=== PATIENT | female | born 1950 | race Caucasian/White ===

== ENCOUNTER 2023-01-04 15:04 | Outpatient (OUT) | payer MEDICARE, SELFPAY ==
[2023-01-04 15:37] LABS: Basophils Absolute Auto 0.1 10^3/uL (0.0-0.1); Basophils Percent Auto 1.5 % (0.2-2.0); Eosinophils Absolute Auto 0.2 10^3/uL (0.0-0.7); Eosinophils Percent Auto 2.2 % (0.9-7.0); Hematocrit 38.5 % (36.0-48.0); Hemoglobin 10.9 g/dL (12.0-16.0); Immature Granulocytes Abs Auto 0.02 10^3/uL (0.00-0.03); Immature Granulocytes Pct Auto 0.3 % (0.0-0.5); Lymphocytes Percent Auto 15.1 % (20.5-60.0); Mean Corpuscular HGB Conc 28.3 g/dL (29.9-35.2); Mean Corpuscular Hemoglobin 27.6 pg (26.7-34.0); Mean Corpuscular Volume 97.5 fL (81.0-99.0); Mean Platelet Volume 10.9 fL (9.5-13.5); Monocytes Absolute Auto 0.5 10^3/uL (0.3-0.8); Monocytes Percent Auto 7.6 % (1.7-12.0); Neutrophils Absolute Auto 4.9 10^3/uL (1.4-6.5); Neutrophils Percent Auto 73.3 % (43.0-75.0); Platelet Count 196 10^3/uL (150-450); Red Blood Count 3.95 10^6/uL (4.20-5.40); Red Cell Distribution Width 19.1 % (11.0-15.0); White Blood Count 6.7 10^3/uL (4.0-11.0)
[2023-01-04 16:21] LABS: Alanine Aminotransferase 20 U/L (14-59); Albumin Globulin Ratio 0.9; Albumin Level 3.4 g/dL (3.4-5.0); Alkaline Phosphatase 101 U/L (46-116); Anion Gap 14.9; Aspartate Amino Transferase 15 U/L (15-37); BUN Creatinine Ratio 15.1; Bilirubin Total 0.5 mg/dL (0.2-1.0); Calcium 8.9 mg/dL (8.5-10.1); Chloride 105 mmol/L (98-107); Estimated GFR (African America >60 (>=60); Estimated GFR (Non-African Ame 51 (>=60); Globulin 3.7 g/dL; Glucose 107 mg/dL (74-106); Potassium 3.9 mmol/L (3.5-5.1); Sodium 140 mmol/L (136-145); Total Protein 7.1 g/dL (6.4-8.2)
== END 2023-01-04 15:05 ==
LOC: LAB 15:11
PROVIDERS: PCP Internal Medicine
DX: D50.9 Iron deficiency anemia, unspecified (principal)
CPT/HCPCS: 36415; 80053; 82728; 83540; 83550; 85025

== ENCOUNTER 2023-02-18 13:00 | Outpatient (OUT) | payer MEDICARE, SELFPAY ==
--- NOTE | 2023-02-18 13:12 | MM_ITS ---
Patient: JANINE CONDE Exam Date: 02/18/2023 : 1950 Gender:F Ordering : DR Shalom Hayward D.O. Admission #: [id number] Family : Order #: [id number] CLICK HERE TO VIEW EXAM RADIOLOGY REPORT PROCEDURE: MM TOMOSYNTHESIS SCREENING BI COMPARISON: MG MAMM SCREEN 3D MANJINDER CAD, 02/16/2022. INDICATIONS: Screening Calculator Name NCI Breast Cancer Risk Assessment Tool 5 Year Breast Cancer Risk Not Reported. Lifetime Breast Cancer Risk Not Reported. Personal Breast Cancer No Personal Ovarian Cancer No Treatments None Family Cancers None LOCATION: [facility] BREAST COMPOSITION: Scattered areas fibroglandular density. FINDINGS: DIAGNOSTIC CATEGORY 2--BENIGN FINDING. NO CHANGE FROM COMPARISON. Scattered benign-appearing calcifications are present. Scattered benign-appearing nodules are present. RIGHT BREAST: No significant suspicious finding. LEFT BREAST: No significant suspicious finding. RECOMMENDATIONS: ROUTINE MAMMOGRAM AND CLINICAL EVALUATION IN 12 MONTHS. PLEASE NOTE: A NORMAL MAMMOGRAM DOES NOT EXCLUDE THE POSSIBILITY OF BREAST CANCER. A CLINICALLY SUSPICIOUS PALPABLE LUMP SHOULD BE BIOPSIED. Dictated by: Ajith Mann MD on 02/19/2023 at 09:14 Approved by: Ajith Mann MD on 02/19/2023 at 09:17
== END 2023-02-18 13:01 | disposition home or self-care (01) ==
LOC: MAMMO 13:00
PROVIDERS: PCP Internal Medicine; Visit Provider Internal Medicine
DX: Z12.31 Encounter for screening mammogram for malignant neoplasm of breast (principal)
CPT/HCPCS: 77063; 77067

== ENCOUNTER 2023-03-05 14:10 | Outpatient (OUT) | payer MEDICARE, SELFPAY ==
[2023-03-05 14:55] LABS: Basophils Absolute Auto 0.1 10^3/uL (0.0-0.1); Eosinophils Absolute Auto 0.1 10^3/uL (0.0-0.7); Eosinophils Percent Auto 1.3 % (0.9-7.0); Hematocrit 35.6 % (36.0-48.0); Hemoglobin 10.3 g/dL (12.0-16.0); Immature Granulocytes Abs Auto 0.02 10^3/uL (0.00-0.03); Immature Granulocytes Pct Auto 0.3 % (0.0-0.5); Lymphocytes Absolute Auto 0.9 10^3/uL (1.2-3.8); Lymphocytes Percent Auto 13.9 % (20.5-60.0); Mean Corpuscular HGB Conc 28.9 g/dL (29.9-35.2); Mean Corpuscular Hemoglobin 26.2 pg (26.7-34.0); Mean Corpuscular Volume 90.6 fL (81.0-99.0); Mean Platelet Volume 11.5 fL (9.5-13.5); Monocytes Absolute Auto 0.5 10^3/uL (0.3-0.8); Monocytes Percent Auto 7.2 % (1.7-12.0); Neutrophils Absolute Auto 4.8 10^3/uL (1.4-6.5); Neutrophils Percent Auto 76.3 % (43.0-75.0); Platelet Count 301 10^3/uL (150-450); Red Blood Count 3.93 10^6/uL (4.20-5.40); Red Cell Distribution Width 16.2 % (11.0-15.0); White Blood Count 6.3 10^3/uL (4.0-11.0)
[2023-03-05 15:45] LABS: Percent Iron Saturation 6.9 %
[2023-03-05 15:49] LABS: Alanine Aminotransferase 21 U/L (14-59); Albumin Level 3.6 g/dL (3.4-5.0); Alkaline Phosphatase 77 U/L (46-116); Anion Gap 12.9; Aspartate Amino Transferase 15 U/L (15-37); BUN Creatinine Ratio 14.1; Bilirubin Total 0.4 mg/dL (0.2-1.0); Calcium 8.6 mg/dL (8.5-10.1); Carbon Dioxide 24.8 mmol/L (21.0-32.0); Chloride 106 mmol/L (98-107); Estimated GFR (African America >60 (>=60); Estimated GFR (Non-African Ame >60 (>=60); Globulin 3.5 g/dL; Glucose 88 mg/dL (74-106); Potassium 3.7 mmol/L (3.5-5.1); Sodium 140 mmol/L (136-145); Total Protein 7.1 g/dL (6.4-8.2)
== END 2023-03-05 14:11 | disposition home or self-care (01) ==
LOC: LAB 14:14
PROVIDERS: PCP Internal Medicine
DX: D50.9 Iron deficiency anemia, unspecified (principal)
CPT/HCPCS: 36415; 80053; 82728; 83540; 83550; 85025

== ENCOUNTER 2023-04-24 14:32 | Outpatient (OUT) | payer MEDICARE, SELFPAY ==
[2023-04-24 14:57] LABS: Basophils Absolute Auto 0.1 10^3/uL (0.0-0.1); Basophils Percent Auto 1.6 % (0.2-2.0); Eosinophils Absolute Auto 0.1 10^3/uL (0.0-0.7); Eosinophils Percent Auto 1.6 % (0.9-7.0); Hematocrit 30.2 % (36.0-48.0); Hemoglobin 8.4 g/dL (12.0-16.0); Immature Granulocytes Abs Auto 0.01 10^3/uL (0.00-0.03); Immature Granulocytes Pct Auto 0.2 % (0.0-0.5); Lymphocytes Absolute Auto 0.8 10^3/uL (1.2-3.8); Mean Corpuscular Hemoglobin 27.1 pg (26.7-34.0); Mean Corpuscular Volume 97.4 fL (81.0-99.0); Mean Platelet Volume 10.1 fL (9.5-13.5); Monocytes Absolute Auto 0.4 10^3/uL (0.3-0.8); Neutrophils Absolute Auto 4.5 10^3/uL (1.4-6.5); Neutrophils Percent Auto 76.6 % (43.0-75.0); Platelet Count 354 10^3/uL (150-450); White Blood Count 5.8 10^3/uL (4.0-11.0)
[2023-04-24 15:18] LABS: Mean Corpuscular HGB Conc 27.8 g/dL (29.9-35.2); Red Cell Distribution Width 19.1 % (11.0-15.0)
[2023-04-24 15:22] LABS: Alanine Aminotransferase 19 U/L (14-59); Albumin Level 3.4 g/dL (3.4-5.0); Alkaline Phosphatase 83 U/L (46-116); Anion Gap 13.3; Aspartate Amino Transferase 14 U/L (15-37); BUN Creatinine Ratio 14.7; Bilirubin Total 0.5 mg/dL (0.2-1.0); Calcium 8.9 mg/dL (8.5-10.1); Carbon Dioxide 23.9 mmol/L (21.0-32.0); Chloride 108 mmol/L (98-107); Estimated GFR (African America >60 (>=60); Estimated GFR (Non-African Ame 58 (>=60); Globulin 3.5 g/dL; Glucose 98 mg/dL (74-106); Potassium 4.2 mmol/L (3.5-5.1); Sodium 141 mmol/L (136-145); Total Protein 6.9 g/dL (6.4-8.2)
[2023-04-24 15:24] LABS: Percent Iron Saturation 6.3 %
== END 2023-04-24 14:33 | disposition home or self-care (01) ==
LOC: LAB 14:35
PROVIDERS: PCP Internal Medicine
DX: D50.9 Iron deficiency anemia, unspecified (principal)
CPT/HCPCS: 36415; 80053; 82728; 83540; 83550; 85025

== ENCOUNTER 2023-06-11 14:11 | Outpatient (OUT) | payer MEDICARE, SELFPAY ==
[2023-06-11 14:49] LABS: Basophils Absolute Auto 0.1 10^3/uL (0.0-0.1); Basophils Percent Auto 1.2 % (0.2-2.0); Eosinophils Absolute Auto 0.1 10^3/uL (0.0-0.7); Eosinophils Percent Auto 1.6 % (0.9-7.0); Hematocrit 39.7 % (36.0-48.0); Hemoglobin 12.1 g/dL (12.0-16.0); Immature Granulocytes Abs Auto 0.02 10^3/uL (0.00-0.03); Immature Granulocytes Pct Auto 0.3 % (0.0-0.5); Lymphocytes Absolute Auto 0.9 10^3/uL (1.2-3.8); Lymphocytes Percent Auto 13.5 % (20.5-60.0); Mean Corpuscular HGB Conc 30.5 g/dL (29.9-35.2); Mean Corpuscular Hemoglobin 29.6 pg (26.7-34.0); Mean Corpuscular Volume 97.1 fL (81.0-99.0); Monocytes Absolute Auto 0.4 10^3/uL (0.3-0.8); Monocytes Percent Auto 6.2 % (1.7-12.0); Neutrophils Absolute Auto 5.3 10^3/uL (1.4-6.5); Neutrophils Percent Auto 77.2 % (43.0-75.0); Platelet Count 275 10^3/uL (150-450); Red Blood Count 4.09 10^6/uL (4.20-5.40); Red Cell Distribution Width 17.8 % (11.0-15.0); White Blood Count 6.9 10^3/uL (4.0-11.0)
[2023-06-11 15:32] LABS: Percent Iron Saturation 13.9 %
[2023-06-11 15:33] LABS: Alanine Aminotransferase 29 U/L (14-59); Albumin Level 3.5 g/dL (3.4-5.0); Alkaline Phosphatase 126 U/L (46-116); Anion Gap 12.3; Aspartate Amino Transferase 19 U/L (15-37); BUN Creatinine Ratio 13.2; Bilirubin Total 0.7 mg/dL (0.2-1.0); Calcium 8.7 mg/dL (8.5-10.1); Carbon Dioxide 25.2 mmol/L (21.0-32.0); Chloride 104 mmol/L (98-107); Estimated GFR (African America >60 (>=60); Estimated GFR (Non-African Ame >60 (>=60); Globulin 3.6 g/dL; Glucose 119 mg/dL (74-106); Potassium 3.5 mmol/L (3.5-5.1); Sodium 138 mmol/L (136-145); Total Protein 7.1 g/dL (6.4-8.2)
== END 2023-06-11 14:12 | disposition home or self-care (01) ==
LOC: LAB 14:14
PROVIDERS: PCP Internal Medicine
DX: D64.9 Anemia, unspecified (principal)
CPT/HCPCS: 36415; 80053; 82728; 83540; 83550; 85025

== ENCOUNTER 2023-08-06 14:50 | Outpatient (OUT) | payer MEDICARE, SELFPAY ==
[2023-08-06 15:25] LABS: Basophils Absolute Auto 0.1 10^3/uL (0.0-0.1); Basophils Percent Auto 0.9 % (0.2-2.0); Eosinophils Absolute Auto 0.1 10^3/uL (0.0-0.7); Eosinophils Percent Auto 0.7 % (0.9-7.0); Hematocrit 42.4 % (36.0-48.0); Immature Granulocytes Abs Auto 0.02 10^3/uL (0.00-0.03); Immature Granulocytes Pct Auto 0.3 % (0.0-0.5); Lymphocytes Absolute Auto 0.8 10^3/uL (1.2-3.8); Lymphocytes Percent Auto 11.5 % (20.5-60.0); Mean Corpuscular HGB Conc 30.7 g/dL (29.9-35.2); Mean Corpuscular Hemoglobin 31.6 pg (26.7-34.0); Mean Corpuscular Volume 102.9 fL (81.0-99.0); Mean Platelet Volume 10.7 fL (9.5-13.5); Monocytes Absolute Auto 0.4 10^3/uL (0.3-0.8); Monocytes Percent Auto 6.1 % (1.7-12.0); Neutrophils Absolute Auto 5.5 10^3/uL (1.4-6.5); Neutrophils Percent Auto 80.5 % (43.0-75.0); Platelet Count 255 10^3/uL (150-450); Red Blood Count 4.12 10^6/uL (4.20-5.40); Red Cell Distribution Width 17.2 % (11.0-15.0); White Blood Count 6.8 10^3/uL (4.0-11.0)
[2023-08-06 16:57] LABS: Alanine Aminotransferase 27 U/L (14-59); Albumin Globulin Ratio 0.9; Albumin Level 3.2 g/dL (3.4-5.0); Alkaline Phosphatase 136 U/L (46-116); Anion Gap 13.2; Aspartate Amino Transferase 19 U/L (15-37); BUN Creatinine Ratio 15.9; Bilirubin Total 0.9 mg/dL (0.2-1.0); Calcium 9.1 mg/dL (8.5-10.1); Carbon Dioxide 26.7 mmol/L (21.0-32.0); Chloride 105 mmol/L (98-107); Estimated GFR (African America >60 (>=60); Estimated GFR (Non-African Ame >60 (>=60); Globulin 3.7 g/dL; Glucose 112 mg/dL (74-106); Potassium 3.9 mmol/L (3.5-5.1); Sodium 141 mmol/L (136-145); Total Protein 6.9 g/dL (6.4-8.2)
[2023-08-06 18:17] LABS: Percent Iron Saturation 32.9 %
== END 2023-08-06 14:51 | disposition home or self-care (01) ==
LOC: LAB 14:52
PROVIDERS: PCP Internal Medicine
DX: D64.9 Anemia, unspecified (principal)
CPT/HCPCS: 36415; 80053; 82728; 83540; 83550; 85025

== ENCOUNTER 2023-10-21 05:31 | Inpatient (IN) | payer MEDICARE, SELFPAY ==
[2023-10-21] VITALS (66 sets, daily range): BP systolic 118–152; BP diastolic 57–100; PULSE 72–122; RESP 13–24; TEMP 36.6–36.9; O2SAT 92–100; BMI 39.5
--- NOTE | 2023-10-21 05:54 | ECG_ITS ---
The [facility] Test Date: 2023-10-21 Pat Name: JANINE CONDE Department: Room: - Gender: Female Admissions Assistant: : 1950 Requested By: Rod Turner Order Number: [id number] Reading MD: MIKE JONES Measurements Intervals [place] Rate: 114 P: 175 [place]: 234 QRS: -1 QRSD: 72 T: -4 QT: 328 QTc: 396 Interpretive Statements Sinus tachycardia w/ first degree AV block [address] depression 5211 Minimal voltage criteria for LVH, may be normal variant 8102 Low QRS voltage in chest leads 9150 abnormal ECG Electronically Signed On 10-21-2023 22:20:07 EDT by MIKE JONES
--- NOTE | 2023-10-21 05:56 | CT_ITS ---
The [address] [address] Patient Name: JANINE CONDE MRN: [id number] date: 1950 Sex: F Assigned Patient Location: ER Current Patient Location: Accession/Order Number: [id number] Exam Date: 10/21/2023 07:11 Report Date: 10/21/2023 07:43 At the request of: ROHIT QUINTERO Procedure: CT abdomen pelvis w con EXAMINATION: CT abdomen pelvis w con HISTORY: hematemesis COMPARISON: CT abdomen and pelvis 09/30/2022 TECHNIQUE: Axial, Coronal, and Sagittal images were obtained without and/or with IV contrast as indicated by examination type. Dose reduction techniques were achieved by using automated exposure control and/or adjustment of mA and/or kV according to patient size and/or use of iterative reconstruction technique. FINDINGS: LUNG BASES: No visible pulmonary or pleural disease. LIVER: No enlargement, atrophy, suspicious density, or significant focal lesion. BILIARY: Cholecystectomy. PANCREAS: No lesion, fluid collection, or abnormal duct dilatation. SPLEEN: No enlargement or focal lesion. ADRENALS: No mass or enlargement. KIDNEYS: No mass, obstruction, or calcification. BOWEL/MESENTERY: Large hiatal hernia with approximately half of the stomach above the diaphragm. No visible mass, obstruction, or bowel wall thickening. AORTA/VASCULAR: No aneurysm or dissection. RETROPERITONEUM: No mass or adenopathy. LYMPH NODES: No adenopathy. URINARY BLADDER: No visible focal wall thickening, lesion, or calculus. PELVIC ORGANS: Hysterectomy. ABDOMINAL WALL: No mass or hernia. BONES: Stable sclerotic focus within posterior left iliac wing, nonspecific but suggestive of benign bone islands. OTHER: Negative. CT/CT abdomen pelvis w con IMPRESSION: 1. Large hiatal hernia with at least half of the stomach above the diaphragm and filled with fluid. This extends above level of imaging on today's study. 2. No bowel obstruction or additional acute/suspicious findings to account for patient's symptoms. Electronically authenticated by: MARGOT RAMIREZ Date: 10/21/2023 07:43
--- NOTE | 2023-10-21 06:01 | ED.GENADUL1 ---
HPI - General Adult General Chief complaint: Nausea/Vomiting/Diarrhea Stated complaint: vomiting nausea Time Seen by Provider: 10/21/23 05:33 Source: patient and family Mode of arrival: walk-in Limitations: no limitations History of Present Illness HPI narrative: Patient began vomiting up coffee ground emesis around 2am. She said that she had dark stools for about 2 weeks and previously had GI bleed . She denied any abdominal pain. No recent trauma to the abdomen. No recent fever,chills, illness. She has iron deficiency anemia, gets regular iron infusions and has previously received blood transfusions. She saw Dr Elias a couple of months ago, she told me, and had both upper and lower endoscopy. They apparently could not find the source of the bleeding although ulcer was suspected and bleeding noted, the told me. Related Data Home Medications Medication Instructions Recorded Confirmed buspirone 15 mg tablet mg 10/21/23 cholestyramine-aspartame 4 gram ea 10/21/23 oral powder for susp in a packet (Cholestyramine Light) clonazepam 0.5 mg tablet mg 10/21/23 clonidine HCl 0.1 mg tablet 0.1 mg PO .once a day 10/21/23 10/21/23 dicyclomine 10 mg capsule 10 mg PO .once a day 10/21/23 10/21/23 trazodone 100 mg tablet mg 10/21/23 venlafaxine 150 mg mg PO 10/21/23 capsule,extended release 24 hr Allergies Allergy/AdvReac Type Severity Reaction Status Date / Time No Known Drug Allergies Allergy Verified 10/21/23 05:41 Exam Narrative Exam Narrative: Nurses notes and vital signs reviewed and patient is not hypoxic. Afebrile General: Well-appearing and in no apparent distress. Skin: Warm, dry, generalized pallor noted. Head: Normocephalic, atraumatic. Eye: Pupils are equal, round and EOMI. No scleral icterus. Ears, Nose, Mouth, and Throat: Oral mucosa is dry Cardiovascular: Tachycardia. Respiratory: No accessory muscle use or respiratory distress. Lungs are clear to auscultation, no wheezing, rales or rhonchi Musculoskeletal: normal ROM, no calf or popliteal tenderness, no lower extremity edema/swelling GI: Abdomen is soft, non-distended. Normal bowel sounds. No masses appreciated. No tenderness to palpation. No rebound, guarding, or rigidity noted. Neurological: A&O x4. No cranial nerve dysfunction observed. No truncal ataxia. Moves all extremities. Sensation intact. Psychiatric: Cooperative and interactive. Normal mood and affect. Constitutional Vital Signs, click to edit/add: Last Vital Signs Temp 97.9 F 10/21/23 05:37 Pulse 113 H 10/21/23 06:33 Resp 14 10/21/23 06:33 BP 141/71 10/21/23 06:33 Pulse Ox 95 10/21/23 06:33 O2 Del Method Room Air 10/21/23 05:37 Course Vital Signs Vital signs: Vital Signs Temperature 97.9 F 10/21/23 05:37 Pulse Rate 117 H 10/21/23 05:37 Respiratory Rate 22 10/21/23 05:37 Blood Pressure 148/100 H 10/21/23 05:37 Pulse Oximetry 98 10/21/23 05:37 Oxygen Delivery Method Room Air 10/21/23 05:37 Temperature 97.9 F 10/21/23 05:37 Pulse Rate 113 H 10/21/23 06:33 Respiratory Rate 14 10/21/23 06:33 Blood Pressure 141/71 10/21/23 06:33 Pulse Oximetry 95 10/21/23 06:33 Oxygen Delivery Method Room Air 10/21/23 05:37 Medical Decision Making MDM Narrative Medical decision making narrative: Patient was placed on playground monitor and EKG obtained. Blood drawn and sent for evaluation, including lactate, procalcitonin and blood cultures per sepsis protocol as well as type and screen in the event that the patient would need a blood transfusion. I did discuss with her the risks and benefits of receiving blood in the event that she would need that. She expressed understanding verbally and gave verbal consent. If she does need blood transfusion then we will obtain written consent as well. She was given normal saline IV fluid, IV Zofran, IV Protonix. White blood cell count is normal at 7.9. Hemoglobin is slightly decreased at 9.8. Platelet count is normal at 328 and coags are normal. Based on the CT scan result, the patient may still need blood transfusion despite hemoglobin greater than 9 if she is actively bleeding. CMP fairly unremarkable. Normal electrolytes and renal function, minimally elevated glucose at 124, negative AST negative ALT and alk phos just slightly elevated at 118. Calcium at 8.1. Lactate elevated at 6.7. Procalcitonin was negative. I suspect this lactate elevation is due to acute GI bleed and possible gut ischemia, rather than sepsis. She received normal saline IV fluid. We will see what the CT scan reveals. Patient signed out to Dr. Key at 7 AM shift change. He will follow-up with the patient's CT scan and determine if any additional treatment necessary as well as final disposition. Medical Records Medical records reviewed: Yes I reviewed the patient's medical records Medical records narrative: She had blood drawn on August 06, 2023. At that time she had normal white blood cell count although left shift was noted. Hemoglobin was normal at 13. Platelet count normal at 255. BMP was also unremarkable with normal electrolytes, normal renal function. Iron studies indicated decreased total iron binding content and increased ferritin. Is not clear whether or not this patient has hemochromatosis. Lab Data Lab results reviewed: Yes I reviewed the patient's lab results Labs: Lab Results 10/21/23 Range/Units 05:47 WBC 7.9 (4.0-11.0) 10^3/uL RBC 3.52 L (4.20-5.40) 10^6/uL Hgb 9.8 L (12.0-16.0) g/dL Hct 34.3 L (36.0-48.0) % MCV 97.4 (81.0-99.0) fL MCH 27.8 (26.7-34.0) pg MCHC 28.6 L (29.9-35.2) g/dL RDW 14.2 (11.0-15.0) % Plt Count 328 (150-450) 10^3/uL MPV 10.5 (9.5-13.5) fL Neut % (Auto) 68.4 (43.0-75.0) % Lymph % (Auto) 22.1 (20.5-60.0) % [place] % (Auto) 6.3 (1.7-12.0) % Eos % (Auto) 1.5 (0.9-7.0) % Baso % (Auto) 1.4 (0.2-2.0) % Neut # (Auto) 5.4 (1.4-6.5) 10^3/uL Lymph # (Auto) 1.8 (1.2-3.8) 10^3/uL [place] # (Auto) 0.5 (0.3-0.8) 10^3/uL Eos # (Auto) 0.1 (0.0-0.7) 10^3/uL Baso # (Auto) 0.1 (0.0-0.1) 10^3/uL Abs Immat Gran (auto) 0.02 (0.00-0.03) 10^3/uL Imm/Tot Granulo (auto) 0.3 (0.0-0.5) % PT 10.0 (9.0-11.6) sec INR 0.94 APTT 23.8 (22.3-36.2) sec Sodium 143 (136-145) mmol/L Potassium 4.0 (3.5-5.1) mmol/L Chloride 106 (98-107) mmol/L Carbon Dioxide 19.0 L (21.0-32.0) mmol/L Anion Gap 22.0 BUN 28.0 H (7.0-18.0) mg/dL Creatinine 0.91 (0.55-1.02) mg/dL Est GFR ( Amer) >60 (>=60) Est GFR (Non-Af Amer) >60 (>=60) BUN/Creatinine Ratio 30.8 Glucose 124 H (74-106) mg/dL Lactate 6.7 H* (0.4-2.0) mmol/L Calcium 8.1 L (8.5-10.1) mg/dL Total Bilirubin 0.4 (0.2-1.0) mg/dL AST 14 L (15-37) U/L ALT 18 (14-59) U/L Alkaline Phosphatase 118 H (46-116) U/L Troponin I High Sens <4.0 L (4.0-51.3) pg/mL NT-Pro-B Natriuret Pep 153.0 (<=900.0) pg/mL Total Protein 6.6 (6.4-8.2) g/dL Albumin 3.0 L (3.4-5.0) g/dL Globulin 3.6 g/dL Albumin/Globulin Ratio 0.8 Procalcitonin <0.05 (0.00-0.50) ng/mL ECG Data Attestation: I personally reviewed and interpreted this ECG as follows: Interpretation: EKG interpretation: Emergency Department physician interpretation. Sinus tachycardia at 114bpm. First-degree AV block. LVH. Nonspecific ST and T wave changes with some T wave inversion and subtle ST depression. No ST segment elevation or depression. Discharge Plan Discharge Chief Complaint: Nausea/Vomiting/Diarrhea Clinical Impression: Acute upper GI bleed Patient Disposition: Still a Patient Prescriptions / Home Meds: No Action clonazepam 0.5 mg tablet venlafaxine 150 mg capsule,extended release 24hr PO trazodone 100 mg tablet buspirone 15 mg tablet cholestyramine-aspartame [Cholestyramine Light] 4 gram powder in packet clonidine HCl 0.1 mg tablet 0.1 mg PO .once a day dicyclomine 10 mg capsule 10 mg PO .once a day Referrals: Shalom Hayward DO [Primary Care Provider] - 1 week
[2023-10-21] MEDS: 0.9 % SODIUM CHLORIDE 1,000 ML 999 ML IV (06:14)
[2023-10-21 06:20] LABS: Basophils Absolute Auto 0.1 10^3/uL (0.0-0.1); Basophils Percent Auto 1.4 % (0.2-2.0); Eosinophils Absolute Auto 0.1 10^3/uL (0.0-0.7); Eosinophils Percent Auto 1.5 % (0.9-7.0); Hematocrit 34.3 % (36.0-48.0); Hemoglobin 9.8 g/dL (12.0-16.0); Immature Granulocytes Abs Auto 0.02 10^3/uL (0.00-0.03); Immature Granulocytes Pct Auto 0.3 % (0.0-0.5); Lymphocytes Absolute Auto 1.8 10^3/uL (1.2-3.8); Lymphocytes Percent Auto 22.1 % (20.5-60.0); Mean Corpuscular HGB Conc 28.6 g/dL (29.9-35.2); Mean Corpuscular Hemoglobin 27.8 pg (26.7-34.0); Mean Corpuscular Volume 97.4 fL (81.0-99.0); Mean Platelet Volume 10.5 fL (9.5-13.5); Monocytes Absolute Auto 0.5 10^3/uL (0.3-0.8); Monocytes Percent Auto 6.3 % (1.7-12.0); Neutrophils Absolute Auto 5.4 10^3/uL (1.4-6.5); Neutrophils Percent Auto 68.4 % (43.0-75.0); Platelet Count 328 10^3/uL (150-450); Red Blood Count 3.52 10^6/uL (4.20-5.40); Red Cell Distribution Width 14.2 % (11.0-15.0); White Blood Count 7.9 10^3/uL (4.0-11.0)
[2023-10-21] MEDS: PANTOPRAZOLE SODIUM 40 MG VIAL IV ×3 (06:29→21:20)
[2023-10-21] MEDS: ONDANSETRON PF 4 MG/2 ML VIAL IV ×2 (06:29→22:51)
--- OUTSIDE RECORDS SUMMARY | 2023-10-21 06:30 | XMS_ITS | CCD ---
Author Name Unknown Address [address] [place] [address] Organization [facility] Care Team Providers Care Day Habilitation Specialist Name Role Phone Dr. Taina Toussaint Attending Unavailable DO Shalom Hayward Primary Care Provider MD Ricky Benson Referring Provider MD Taina Toussaint Attending Provider Shalom Hayward Unavailable TING, DR TAINA Thomas Consulting Unavailable MAINOR, DR MCKEON Primary Care Unavailable TING, DR TAINA Thomas Admitting Unavailable TING, DR TAINA Thomas Attending Unavailable BALL, DR MCKEON Primary Care Unavailable TING, DR TAINA Thomas Admitting Unavailable TING, DR TAINA Thomas Attending Unavailable MISC, DR MAURICIO Consulting Unavailable GERTRUDIS LOUIS Attending Unavailable GERTRUDIS LOUIS Consulting Unavailable GERTRUDIS LOUIS Admitting Unavailable BALL, DR MCKEON Primary Care Unavailable TING, DR TAINA Thomas Consulting Unavailable TING, DR TAINA Thomas Admitting Unavailable TING, DR TAINA Thomas Attending Unavailable MAINOR, DR MCKEON Primary Care Unavailable GERTRUDIS LOUIS Attending Unavailable BALL, DR MCKEON Referring Unavailable BALL, DR MCKEON Primary Care Unavailable GERTRUDIS LOUIS Admitting Unavailable BALL, DR MCKEON Primary Care Unavailable BALL, DR MCKEON Admitting Unavailable BALL, DR MCKEON Attending Unavailable BALL, DR MCKEON Consulting Unavailable MAINOR, DR MCKEON Primary Care Unavailable TING, DR TAINA Thomas Consulting Unavailable TING, DR TAINA Thomas Admitting Unavailable TING, DR TAINA Thomas Attending Unavailable BALL, DR MCKEON Admitting Unavailable BALL, DR MCKEON Attending Unavailable BALL, DR MCKEON Consulting Unavailable BALL, DR MCKEON Primary Care Unavailable BALL, DR MCKEON Admitting Unavailable BALL, DR MCKEON Attending Unavailable BALL, DR MCKEON Consulting Unavailable BALL, DR MCKEON Primary Care Unavailable ZIEBMARLO, DR SEVERINO Ely Consulting Unavailable MISC, DR MAURICIO Attending Unavailable BALL, DR MCKEON Primary Care Unavailable MISC, DR MAURICIO Consulting Unavailable MISC, DR MAURICIO Admitting Unavailable PLACIDO ., DR MIMS Attending Unavailable PLACIDO ., DR MIMS Consulting Unavailable PLACIDO ., DR MIMS Admitting Unavailable BALL, DR MCKEON Primary Care Unavailable KATHERINE FIERRO Consulting Unavailable PATTI, DANISH Consulting Unavailable HERNANDEZ, ROBIN Consulting Unavailable SARAI LUCAS Consulting Unavailable DO Shalom Hayward Primary Care Provider MD Ricky Benson Referring Provider MD Taina Toussaint Attending Provider DO Shalom Hayward Primary Care Provider MD Ricky Benson Referring Provider MD Taina Toussaint Attending Provider Ricky Benson Unavailable DO Shalom Hayward Primary Care Provider MD Ricky Benson Referring Provider MD Taina Toussaint Attending Provider MD Ricky Benson Attending Provider DO Shalom Hayward Primary Care Provider MD Ricky Benson Attending Provider MD Ricky Benson Referring Provider MD Taina Toussaint Attending Provider Shalom Hayward Primary Care Unavailable Ricky Benson Admitting UnavailRicky Hernandez Attending Unavailkamran e Shalom Hayward Primary Care Unavailable Taina Tosusaint Admitting Unavailable Taina Toussaint Attending Unavailable Ricky Benson Referring UnavailDO Shalom Baig Primary Care Provider MD Ricky Benson Referring Provider MD Taina Toussaint Attending Provider Medications Current Medications Medication Drug Class(es) Dates Sig (Normalized) Sig (Original) busPIRone hydrochloride 5 mg oral tablet (20 sources) Start: 06-22-2021 take 5 mg by mouth twice daily Buspirone Active 5 MG PO Twice daily June 22, 2021 12:00am Start: 06-20-2019 End: 10-24-2021 take 15 mg by mouth twice daily Buspirone Discontinued 15 MG PO Twice daily June 20, 2019 12:00am October 24, 2021 12:21pm clonazePAM 0.5 mg oral tablet (20 sources) Benzodiazepine Start: 06-20-2019 End: 06-23-2019 take 0.5 mg by mouth twice daily Clonazepam Active 0.5 MG PO Twice daily 0 June 23, 2019 12:52pm cloNIDine hydrochloride 0.1 mg oral tablet (13 sources) Central alpha-2 Adrenergic Agonist Start: 05-07-2023 take 1 tablet by mouth every twenty-four hours cloNIDine HCl 0.1 MG 1 tablet Orally Once a day May, Active Start: 05-07-2023 take 0.1 mg by mouth twice ramone ly Clonidine Hcl Active 0.1 MG PO Twice daily May 14, 2023 11:00pm dicyclomine hydrochloride 10 mg oral capsule (4 sources) Anticholinergic Start: 08-06-2023 take 1 capsule by mouth every eight hours Dicyclomine HCl 10 MG 1 capsule Orally three times a day Aug, Active famotidine 40 mg oral tablet (20 sources) Histamine-2 Receptor Antagonist take 1 tablet by mouth in the evening Famotidine 40 MG Take 1 tablet by mouth in the evening Active pantoprazole 40 mg delayed release oral tablet (6 sources) Proton Pump Inhibitor Start: 05-15-2023 take 40 mg by mouth twice daily Pantoprazole Active 40 MG PO Twice daily 60 180 May 14, 2023 11:00pm take 1 tablet by deidra th every twenty-four hours Pantoprazole Sodium 40 MG 1 tablet Orall y Once a day Active thiamine 100 mg oral tablet (7 sources) take 1 tablet by mouth every twenty-four hours Vitamin B-1 100 MG 1 tablet Orally Once a day Active traZODone hydrochloride 100 mg oral tablet (20 sources) Serotonin Reuptake Inhibitor Start: take 1 tablet by mouth at bedtime Trazodone Active 1 TAB PO Bedtime June 20, 2019 12:00am Vitamin D (7 sources) Vitamin D Active Completed/Discontinued Medications Medication Drug Class(es) Dates Sig (Normalized) Sig (Original) apixaban 5 mg oral tablet (12 sources) Factor Xa Inhibitor Start: 06-23-2019 End: 10-20-2019 take 2 tablets by mouth twice daily, then take 1 tablet by mouth twice daily Apixaban (Eliquis) 5 mg Tablet Discontinued 10 MG PO Twice daily 16 4 June 23, 2019 12:00am October 20, 2019 1:55pm Start with 10 mg twice daily for 4 days then continue 5 mg twice daily thereafter Start: 06-23-2019 End: 10-20-2019 take 1 tablet by mouth twice daily Apixaban (Eliquis) 5 mg Tablet Discontinued 5 MG PO Twice daily 120 60 June 23, 2019 12:00am October 20, 2019 1:55pm ascorbic acid 1000 mg oral tablet (6 sources) Vitamin C Start: 06-22-2021 End: 01-05-2022 take 1 tablet by mouth once daily Ascorbic Acid (Vitamin C) (Vitamin C) 1,000 mg Tablet Discontinued 1000 MG PO Daily June 22, 2021 12:00am January 05, 2022 10:06am B-12 - up to 1000 mcg (20 sources) Start: 08-27-2023 B-12 - up to 1 000 mcg Aug, 1000 mcg Start: 07-26-2023 B-12 - up to 1 000 mcg Jul, 1000 mcg Start: 05-24-2023 B-12 - up to 1 000 mcg May, 1000 mcg Start: 04-24-2023 B-12 - up to 1 000 mcg Apr, 1000 mcg Start: 03-20-2023 B-12 - up to 1 000 mcg Mar, 1000 mcg Start: 02-14-2023 Start: 02-14-2023 B-12 - up to 1 000 mcg Feb, 1000 mcg Start: 01-15-2023 Start: 01-15-2023 B-12 - up to 1 000 mcg Jan, 1000 mcg Start: 12-11-2022 Start: 12-11-2022 B-12 - up to 1 000 mcg December, 1000 mcg Start: 11-05-2022 Start: 11-05-2022 B-12 - up to 1 000 mcg Nov, 1000 mcg Start: 10-02-2022 Start: 10-02-2022 B-12 - up to 1 000 mcg Sep, 1000 mcg Start: 08-20-2022 Start: 08-20-2022 B-12 - up to 1 000 mcg Aug, 1000 mcg sugar-free cholestyramine resin 4000 mg powder for oral suspension (20 sources) Bile Acid Sequestrant Start: 03-05-2023 Cholestyramine Light 4 GM 1 packet Orally twice daily for 30 days Mar, Not-Taking/PRN Start: 03-05-2023 Cholestyramine Light 4 GM 1 packet Orally twice daily for 30 days Mar, Not-Taking Prevalite 4 GM 1 packet Orally Once a day Active Prevalite 4 GM 1 packet Orally Once a day Active docusate sodium 100 mg oral capsule (6 sources) Start: 06-23-2019 End: 10-20-2019 take 100 mg by mouth twice daily Docusate Sodium Discontinued 100 MG PO Twice daily 60 June 23, 2019 12:00am October 20, 2019 1:57pm ferrous sulfate 325 mg oral tablet (12 sources) Start: 01-01-2020 End: 06-22-2021 take 325 mg by mouth once daily Ferrous Sulfate Discontinued 325 MG PO Daily December 31, 2019 11:00pm June 22, 2021 6:20am Start: 06-23-2019 End: 10-20-2019 Ferrous Sulfate Discontinued 325 MG PO Every 48 hours 30 June 23, 2019 12:00am October 20, 2019 1:58pm lactulose 667 mg/ml oral solution (18 sources) Osmotic Laxative Start: 08-09-2021 take 30 mL by mouth once daily as needed Lactulose 10 GM/15ML 30 ml Orally Once a day for 30 day(s) Aug, Not-Taking/PRN Start: 08-09-2021 take 30 mL by mouth once daily Lactulose 10 GM/15ML 30 ml Orally Once a day for 30 day(s) Aug, Not-Taking Start: 08-09-2021 Start: 08-09-2021 take 30 mL by mouth once daily Lactulose 10 GM/15ML 30 ml Orally Once a day for 30 day(s) Aug, Active 24 hr mesalamine 375 mg extended release oral capsule (20 sources) Aminosalicylate Start: 02-29-2020 take 4 capsules by mouth every twenty-four hours Apriso 0.375 GM 4 capsules in the morning Orally Once a day for 30 day(s) Feb, Not-Taking/PRN Start: 02-29-2020 take 4 capsules by m outh every twenty-four hours Start: 02-12-2020 take 2 capsules by m outh every six hours Pentasa 500 MG 2 capsules Orally Four times a day for 30 day(s) Feb, Not-Taking/PRN Start: 02-12-2020 take 2 capsules by m outh every six hours omeprazole 20 mg delayed release oral capsule (12 sources) Proton Pump Inhibitor Start: 01-01-2020 End: 06-22-2021 take 20 mg by mouth once daily Omeprazole Discontinued 20 MG PO Daily December 31, 2019 11:00pm June 22, 2021 6:20am Start: 06-23-2019 End: 10-20-2019 take 40 mg by mouth once daily Omeprazole Discontinued 40 MG PO Daily 60 June 23, 2019 12:00am October 20, 2019 1:58pm ondansetron 4 mg oral tablet (18 sources) Serotonin-3 Receptor Antagonist Start: 02-10-2020 take 1 tablet by mouth three times daily as needed Zofran ODT 4 MG 1 tablet on the tongue and allow to dissolve Orally tid prn for 30 day(s) Feb, Not-Taking/PRN Start: 02-10-2020 24 hr oxybutynin chloride 15 mg extended release oral tablet (17 sources) Cholinergic Muscarinic Antagonist Start: 10-10-2022 take 1 tablet by mouth every twenty-four hours oxyBUTYnin Chloride ER 15 MG 1 tablet Orally Once a day for 30 days Oct, Not-Taking/PRN sulfaSALAzine 500 mg oral tablet (18 sources) Aminosalicylate Start: 01-25-2020 take 2 tablets by mouth every twelve hours sulfaSALAzine 500 MG 2 tablets Orally bid for 30 day(s) Jan, Not-Taking/PRN Start: 01-25-2020 take 2 tablets by mouth every twelve hours triamcinolone acetonide 0.001 mg/mg topical ointment (20 sources) Corticosteroid Start: 02-11-2020 End: 06-22-2021 Triamcinolone Acetonide Discontinued 1 APPLIC TOPICAL Daily February 10, 2020 11:00pm June 22, 2021 6:16am Triamcinolone Ac etonide 0.1 % 1 application Externally Twice a day Active Triamcinolone Ac etonide 0.1 % 1 application Externally Twice a day Active 24 hr venlafaxine 37.5 mg extended release oral capsule (20 sources) Serotonin and Norepinephrine Reuptake Inhibitor Start: 06-22-2021 End: 10-24-2021 take 37.5 mg by mouth once daily Venlafaxine Discontinued 37.5 MG PO Daily June 22, 2021 12:00am October 24, 2021 12:22pm Start: 06-20-2019 take 150 mg by mouth once mathew y Venlafaxine Active 150 MG PO Daily June 20, 2019 12:00am Effexor 150mg Ac tive Problems Active Problems Problem Classification Problem Date Documented Date Episodic/Chronic Abdominal hernia (20 sources) Hiatal hernia; Translations: [Diaphragmatic hernia without obstruction or gangrene] 01-01-2020 Episodic Abdominal pain (2 sources) Unspecified abdominal pain; Translations: [UNSPECIFIED ABDOMINAL PAIN] Onset: 3 Episodic Acute posthemorrhagic anemia (20 sources) Acute posthemorrhagic anemia; Translations: [Acute posthemorrhagic anemia] Onset: 3 Resolved: 2 Episodic Alcohol-related disorders (20 sources) Alcohol dependence; Translations: [Alcohol dependence, uncomplicated] Chronic Anxiety disorders (20 sources) Generalized anxiety disorder; Translations: [Generalized anxiety disorder] Onset: 3 Chronic Bacterial infection; unspecified site (9 sources) Bacterial infectious disease; Translations: [Other specified bacterial agents as the cause of diseases classified elsewhere] Episodic Biliary tract disease (1 source) Postcholecystectomy syndrome Episodic Complications of surgical procedures or medical care (6 sources) Blood transfusion reaction; Translations: [Unspecified transfusion reaction, initial encounter] 01-01-2020 Episodic Deficiency and other anemia (18 sources) Iron deficiency anemia due to blood loss; Translations: [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 Deficiency and other anemia (7 sources) Iron deficiency anemia secondary to blood loss (chronic); Translations: [IRON DEFIC ANEMIA SEC BLD LOSS CHRN] Onset: 2 Chronic Deficiency and other anemia (9 sources) Anemia due to chronic blood loss; Translations: [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 Deficiency and other anemia (1 source) Iron deficiency anemia secondary to blood loss (chronic); Translations: [Iron deficiency anemia secondary to blood loss (chronic)] Onset: 4 Chronic Deficiency and other anemia (6 sources) Anemia; Translations: [Anemia, unspecified] 01-01-2020 Episodic Deficiency and other anemia (20 sources) Iron deficiency anemia; Translations: [Iron deficiency anemia, unspecified] 01-19-2021 Episodic Deficiency and other anemia (16 sources) Iron deficiency anemia, unspecified; Translations: [Iron deficiency anemia, unspecified] Onset: 2 08-09-2022 Episodic Deficiency and other anemia (20 sources) Pernicious anemia; Translations: [Vitamin B12 deficiency anemia due to intrinsic factor deficiency] Episodic Deficiency and other anemia (10 sources) Vitamin B12 deficiency anemia due to intrinsic factor deficiency Episodic Deficiency and other anemia (1 source) Other iron deficiency anemias; Translations: [Other iron deficiency anemias] Onset: 4 Episodic Diabetes mellitus with complications (9 sources) Hyperglycemia due to type 2 diabetes mellitus; Translations: [Type 2 diabetes mellitus with hyperglycemia] Chronic Diabetes mellitus without complication (20 sources) Impaired fasting glycemia; Translations: [Impaired fasting glucose] Onset: 2 Episodic Digestive congenital anomalies (20 sources) Terminal esophageal web; Translations: [Esophageal web] Chronic Disorders of lipid metabolism (20 sources) Pure hypercholesterolemia; Translations: [Familial hypercholesterolemia] Onset: 0 Chronic Diverticulosis and diverticulitis (20 sources) Diverticular disease of colon; Translations: [Diverticulosis of intestine, part unspecified, without perforation or abscess without bleeding] Chronic Esophageal disorders (3 sources) Gastro-esophageal reflux disease without esophagitis; Translations: [Gastro-esophageal reflux disease with esophagitis] Onset: 3 Chronic Essential hypertension (20 sources) Essential hypertension; Translations: [Essential (primary) hypertension] Chronic Gastroduodenal ulcer (except hemorrhage) (20 sources) Ulcer of duodenum; Translations: [Duodenal ulcer, unspecified as acute or chronic, without hemorrhage or perforation] Onset: 9 Chronic Gastrointestinal hemorrhage (20 sources) Chronic peptic ulcer with hemorrhage but without obstruction; Translations: [Chronic or unspecified peptic ulcer, site unspecified, with hemorrhage] Chronic Gastrointestinal hemorrhage (20 sources) Gastrointestinal hemorrhage; Translations: [Gastrointestinal hemorrhage, unspecified] Onset: 3 01-01-2020 Episodic Genitourinary symptoms and ill-defined conditions (20 sources) Urge incontinence of urine; Translations: [Urge incontinence] Chronic Immunizations and screening for infectious disease (9 sources) Encounter for immunization; Translations: [Vaccination given] Episodic Malaise and fatigue (20 sources) Fatigue; Translations: [Other fatigue] Onset: 4 Episodic Menopausal disorders (18 sources) Menopausal and female climacteric states; Translations: [Primary ovarian failure] Onset: 7 Chronic Mood disorders (20 sources) Single episode of major depression in full remission; Translations: [Major depressive disorder, single episode, in full remission] Resolved: 1 Chronic Mood disorders (1 source) Mood disorders; Translations: [DEPRESSION UNSPECIFIED] Onset: 3 Nonmalignant breast conditions (1 source) Hypertrophy of breast Episodic Nutritional deficiencies (20 sources) Cobalamin deficiency; Translations: [Deficiency of other specified B group vitamins] 01-01-2020 Episodic Other aftercare (2 sources) Other group home (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; Translations: [OTH PLANTING MATERIAL REMOVER CURRENT DRUG THERAPY] Onset: 3 Episodic Other aftercare (8 sources) Long-term current use of drug therapy; Translations: [Other grass cutter (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] Episodic Other circulatory disease (1 source) Hypotension, unspecified; Translations: [HYPOTENSION UNSPECIFIED] Onset: 3 Episodic Other connective tissue disease (18 sources) Leg swelling symptom; Translations: [Other specified soft tissue disorders] Episodic Other connective tissue disease (8 sources) Disorder of soft tissue; Translations: [Other specified soft tissue disorders] Episodic Other connective tissue disease (3 sources) Other specified soft tissue disorders; Translations: [Leg swelling] Episodic Other gastrointestinal disorders (20 sources) Intestinal malabsorption; Translations: [Other intestinal malabsorption] Chronic Other gastrointestinal disorders (2 sources) Other intestinal malabsorption; 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 Other gastrointestinal disorders (6 sources) Angiodysplasia of small intestine; Translations: [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] 11-25-2021 Episodic Other gastrointestinal disorders (20 sources) 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; Translations: [Angiodysplasia of intestine (without mention of hemorrhage)] 08-09-2022 Episodic Other injuries and conditions due to external causes (2 sources) History of falling; Translations: [History of falling] Episodic Other injuries and conditions due to external causes (7 sources) History of fall; Translations: [History of falling] Episodic Other nervous system disorders (11 sources) Polyneuropathy; Translations: [Polyneuropathy, unspecified] Chronic Other nervous system disorders (1 source) Polyneuropathy, unspecified Chronic Other nervous system disorders (9 sources) Paresthesia; Translations: [Paresthesia of skin] Episodic Other nutritional; endocrine; and metabolic disorders (6 sources) Body mass index 40+ - severely obese; Translations: [Morbid (severe) obesity due to excess calories] 01-01-2020 Chronic Other nutritional; endocrine; and metabolic disorders (7 sources) Morbid (severe) obesity due to excess calories; Translations: [Morbid obesity] 08-09-2022 Chronic Other nutritional; endocrine; and metabolic disorders (1 source) Other obesity due to excess calories; Translations: [Other obesity due to excess calories] Onset: 6 Chronic Other nutritional; endocrine; and metabolic disorders (2 sources) Obesity, unspecified; Translations: [Obesity, unspecified] Chronic Other nutritional; endocrine; and metabolic disorders (8 sources) Morbid obesity; Translations: [Morbid (severe) obesity due to excess calories] Chronic Other nutritional; endocrine; and metabolic disorders (7 sources) Obesity; Translations: [Obesity, unspecified] Chronic Other nutritional; endocrine; and metabolic disorders (8 sources) Simple obesity ; Translations: [Other obesity due to excess calories] Onset: 6 Chronic Other screening for suspected conditions (not mental disorders or infectious disease) (8 sources) Encounter for screening mammogram for malignant neoplasm of breast; Translations: [Encounter for screening for osteoporosis] Onset: 5 Episodic Other skin disorders (6 sources) Skin lesion; Translations: [Disorder of the skin and subcutaneous tissue, unspecified] 02-11-2020 Episodic Other skin disorders (6 sources) Disorder of the skin and subcutaneous tissue, unspecified; Translations: [Unspecified disorder of skin and subcutaneous tissue] 08-09-2022 Episodic Pulmonary heart disease (7 sources) Pulmonary embolism; Translations: [Other pulmonary embolism without acute cor pulmonale] Onset: 3 01-01-2020 Episodic Residual codes; unclassified (20 sources) Asymptomatic menopausal state; Translations: [Menopause] Episodic Residual codes; unclassified (1 source) Insomnia, unspecified; Translations: [INSOMNIA UNSPECIFIED] Onset: 3 Episodic Residual codes; unclassified (9 sources) Postmenopausal state; Translations: [Asymptomatic menopausal state] Episodic Screening and history of mental health and substance abuse codes (1 source) Personal history of nicotine dependence; Translations: [PERSONAL HISTORY OF NICOTINE DEPEND] Onset: 3 Episodic Unclassified (1 source) CONTACT W/AND (SUSP) EXPOS COVID-19; Translations: [CONTACT W/AND (SUSP) EXPOS COVID-19] Onset: 3 Unclassified (9 sources) Alcohol use, unspecified with withdrawal, uncomplicated; Translations: [Alcohol use, unspecified with withdrawal, uncomplicated] Past or Other Problems Problem Classification Problem Date Documented Date Episodic/Chronic Cardiac dysrhythmias (10 sources) Tachycardia, unspecified; Translations: [Palpitations] Onset: 05-23-2016 Episodic Chronic ulcer of skin (9 sources) Non-pressure chronic ulcer of skin of other sites limited to breakdown of skin; Translations: [Chronic ulcer of skin] Resolved: 11-02-2020 Chronic Deficiency and other anemia (4 sources) Anemia, unspecified; Translations: [ANEMIA UNSPECIFIED] Onset: 02-13-2022 Episodic Diabetes mellitus without complication (9 sources) Type 2 diabetes mellitus without complication; Translations: [Type 2 diabetes mellitus without complications] Resolved: 11-02-2020 Chronic Esophageal disorders (1 source) Esophageal disorders Nonspecific chest pain (9 sources) Chest pain; Translations: [Other chest pain] Onset: 06-07-2016 Episodic Other connective tissue disease (9 sources) Disorder of musculoskeletal system; Translations: [Other symptoms and signs involving the musculoskeletal system] Resolved: 03-03-2022 Episodic Other skin disorders (8 sources) Hair follicle disorder; Translations: [Other specified follicular disorders] Resolved: 11-02-2020 Episodic Other skin disorders (8 sources) Folliculitis; Translations: [Follicular disorder, unspecified] Resolved: 11-02-2020 Episodic Other skin disorders (1 source) Other specified follicular disorders; Translations: [Other specified follicular disorders] Resolved: 11-02-2020 Episodic Other skin disorders (1 source) Follicular disorder, unspecified; Translations: [Follicular disorder, unspecified] Resolved: 11-02-2020 Episodic Skin and subcutaneous tissue infections (9 sources) Cellulitis; Translations: [Cellulitis of unspecified part of limb] Resolved: 11-02-2020 Episodic Unclassified (7 sources) Alcohol withdrawal syndrome without complication; Translations: [Alcohol withdrawal syndrome without complication] Unclassified (20 sources) Single subsegmental pulmonary embolism without acute cor pulmonale; Translations: [Single subsegmental pulmonary embolism without acute cor pulmonale] Results Test Name Value Interpretation Reference Range Facility Anisocytosis LM Ql (Bld)Orde red By: Ricky Benson on 05-15-2023 Anisocytosis Ql (Bld) Moderate [facility] Basophils Auto (Bld) [#/Vol] Ordered By: Ricky Benson on 05-15-2023 Basophils (Bld) [#/Vol] 0.1 10*3/uL 0.0-0.2 [facility] Basophils/100 WBC Auto (Bld) Ordered By: Ricky Benson on 05-15-2023 Basophils/100 WBC (Bld) 1.5 % . [facility] Eosinophils Auto (Bld) [#/Vo l]Ordered By: Ricky Benson on 05-15-2023 Eosinophils (Bld) [#/Vol] 0.1 10*3/uL 0.0-0.45 [facility] Eosinophils/100 WBC Auto (Bl d)Ordered By: Ricky Benson on 05-15-2023 Eosinophils/100 WBC (Bld) 1.8 % . [facility] Erythrocyte distribution wid th Auto (RBC) [Ratio]Ordered By: Ricky Benson on 05-15-2023 Erythrocyte distribution width (RBC) [Ratio] 25.6 % 11.9-15.3 [facility] Hematocrit Auto (Bld) [Volum e fraction]Ordered By: Ricky Benson on 05-15-2023 Hematocrit (Bld) [Volume fraction] 28.8 % 34.0-46.4 [facility] Hemoglobin [Mass/volume] in BloodOrdered By: Ricky Benson on 05-15-2023 Hemoglobin (Bld) [Mass/Vol] 8.7 g/dL 11.8-15.4 [facility] Hypochromia LM Ql (Bld)Order ed By: Ricky Benson on 05-15-2023 Hypochromia Ql (Bld) Moderate [facility] Leukocytes [#/volume] correc eugenia for nucleated erythrocytes in Blood by Automated counOrdered By: Ricky Benson on 05-15-2023 WBC corrected for nucl RBC Auto (Bld) [#/Vol] 4.4 10*3/uL 3.8-11.6 [facility] Lymphocytes Auto (Bld) [#/Vo l]Ordered By: Ricky Benson on 05-15-2023 Lymphocytes (Bld) [#/Vol] 0.7 10*3/uL 1.00-4.8 [facility] Lymphocytes/100 WBC Auto (Bl d)Ordered By: Ricky Benson on 05-15-2023 Lymphocytes/100 WBC (Bld) 16.9 % . [facility] MCH Auto (RBC) [Entitic mass ]Ordered By: Ricky Benson on 05-15-2023 MCH (RBC) [Entitic mass] 28.1 pg 24.7-34.3 [facility] MCHC Auto (RBC) [Mass/Vol]Or dered By: Ricky Benson on 05-15-2023 MCHC (RBC) [Mass/Vol] 30.2 g/dL 32.0-35.0 [facility] MCV Auto (RBC) [Entitic vol] Ordered By: Ricky Benson on 05-15-2023 MCV (RBC) [Entitic vol] 93.1 fL 80-100 [facility] Monocytes Auto (Bld) [#/Vol] Ordered By: Ricky Benson on 05-15-2023 Monocytes (Bld) [#/Vol] 0.3 10*3/uL 0.0-0.8 [facility] Monocytes/100 WBC Auto (Bld) Ordered By: Ricky Benson on 05-15-2023 Monocytes/100 WBC (Bld) 6.2 % . [facility] Neutrophils Auto (Bld) [#/Vo l]Ordered By: Ricky Benson on 05-15-2023 Neutrophils (Bld) [#/Vol] 3.2 10*3/uL 1.8-7.7 [facility] Neutrophils/100 WBC Auto (Bl d)Ordered By: Ricky Benson on 05-15-2023 Neutrophils/100 WBC (Bld) 73.6 % . [facility] Nucleated erythrocytes [Pres ence] in Blood by Automated countOrdered By: Ricky Benson on 05-15-2023 Nucleated RBC Auto Ql (Bld) 0.2 /100{WBC} 0-0.5 [facility] Ovalocyte detectionOrdered B y: Ricky Benson on 05-15-2023 Ovalocytes LM Ql (Bld) Slight [facility] Platelet adequacy [Presence] in Blood by Light microscopyOrdered By: Ricky Benson on 05-15-2023 Platelets LM Ql (Bld) Normal Normal [facility] Platelet mean volume Auto (B ld) [Entitic vol]Ordered By: Ricky Benson on 05-15-2023 Platelet mean volume (Bld) [Entitic vol] 8.6 fL 6.3-10.7 [facility] Platelet morphology finding [Identifier] in BloodOrdered By: Ricky Benson on 05-15-2023 Platelet morphology finding Nom (Bld) Normal Normal [facility] Platelets Auto (Bld) [#/Vol] Ordered By: Ricky Benson on 05-15-2023 Platelets (Bld) [#/Vol] 231 10*3/uL 150-450 [facility] Poikilocytosis [Presence] in Blood by Light microscopyOrdered By: Ricky Benson on 05-15-2023 Poikilocytosis LM Ql (Bld) Moderate [facility] Polychromasia [Presence] in Blood by Light microscopyOrdered By: Ricky Benson on 05-15-2023 Polychromasia LM Ql (Bld) Slight [facility] RBC Auto (Bld) [#/Vol]Ordere d By: Ricky Benson on 05-15-2023 RBC (Bld) [#/Vol] 3.09 10*6/uL 3.60-5.00 [facility] RBC morphologyOrdered By: Carissa Benson on 05-15-2023 RBC morphology finding Nom (Bld) N/A [facility] Scan and CBCon 05-15-2023 Anisocytosis Ql (Bld) Moderate Normal [facility] Comment on above: Performed By: #### S CAN CBC #### [facility] [address] [place] [address] [place] Basophils (Bld) [#/Vol] 0.1 10*3/uL Normal 0.0-0.2 [facility] Comment on above: Performed By: #### S CAN CBC #### [facility] [address] [place] [address] [place] Basophils/100 WBC (Bld) 1.5 % Normal . [facility] Comment on above: Performed By: #### S CAN CBC #### [facility] [address] [place] [address] [place] Eosinophils (Bld) [#/Vol] 0.1 10*3/uL Normal 0.0-0.45 [facility] Comment on above: Performed By: #### S CAN CBC #### [facility] [address] [place] [address] [place] Eosinophils/100 WBC (Bld) 1.8 % Normal . [facility] Comment on above: Performed By: #### S CAN CBC #### [facility] [address] [place] [address] [place] Erythrocyte distribution width (RBC) [Ratio] 25.6 % High 11.9-15.3 [facility] Comment on above: Performed By: #### S CAN CBC #### [facility] [address] Hematocrit (Bld) [Volume fraction] 28.8 % Low 34.0-46.4 [facility] Comment on above: Performed By: #### S CAN CBC #### [facility] [address] Hemoglobin (Bld) [Mass/Vol] 8.7 g/dL Low 11.8-15.4 [facility] Comment on above: Performed By: #### S CAN CBC #### [address] Hypochromasia Moderate Normal [facility] Comment on above: Performed By: #### S CAN CBC #### [address] Lymphocytes (Bld) [#/Vol] 0.7 10*3/uL Low 1.00-4.8 [facility] Comment on above: Performed By: #### S CAN CBC #### [address] Lymphocytes/100 WBC (Bld) 16.9 % Normal . [facility] Comment on above: Performed By: #### S CAN CBC #### [address] MCH (RBC) [Entitic mass] 28.1 pg Normal 24.7-34.3 [facility] Comment on above: Performed By: #### S CAN CBC #### [address] MCV (RBC) [Entitic vol] 93.1 fL Normal 80-100 [facility] Comment on above: Performed By: #### S CAN CBC #### [address] Mean Corpuscular HGB Conc 30.2 g/dL Low 32.0-35.0 [facility] Comment on above: Performed By: #### S CAN CBC #### [place] [address] [place] Monocytes (Bld) [#/Vol] 0.3 10*3/uL Normal 0.0-0.8 [facility] Comment on above: Performed By: #### S CAN CBC #### [place] [address] [place] Monocytes/100 WBC (Bld) 6.2 % Normal . [facility] Comment on above: Performed By: #### S CAN CBC #### [place] [address] [place] Neutrophils (Bld) [#/Vol] 3.2 10*3/uL Normal 1.8-7.7 [facility] Comment on above: Performed By: #### S CAN CBC #### [place] [address] [place] Neutrophils/100 WBC (Bld) 73.6 % Normal . [facility] Comment on above: Performed By: #### S CAN CBC #### [address] NRBC% 0.2 /100{WBC} Normal 0-0.5 [facility] Comment on above: Performed By: #### S CAN CBC #### [address] Ovalocytes Slight Normal [facility] Comment on above: Performed By: #### S CAN CBC #### [address] Platelet Estimate Normal Normal Normal [facility] Comment on above: Performed By: #### S CAN CBC #### [address] Platelet mean volume (Bld) [Entitic vol] 8.6 fL Normal 6.3-10.7 [facility] Comment on above: Performed By: #### S CAN CBC #### [address] Platelet Morphology Normal Normal Normal [facility] Comment on above: Result Comment: PERF ORMED BY: [place] [address] PATHOLOGIST RESIDENTIAL [employer] APPRAISER KENNETH GOMEZ M.D. Performed By: #### S CAN CBC #### [place] [address] [place] Platelets (Bld) [#/Vol] 231 10*3/uL Normal 150-450 [facility] Comment on above: Performed By: #### S CAN CBC #### [address] Poikilocytosis Moderate Normal [facility] Comment on above: Performed By: #### S CAN CBC #### [facility] [address] [place] [address] Polychromasia Slight Normal [facility] Comment on above: Performed By: #### S CAN CBC #### [facility] [address] [place] [address] RBC (Bld) [#/Vol] 3.09 10*6/uL Low 3.60-5.00 [facility] Comment on above: Performed By: #### S CAN CBC #### [address] Tear Drop Cells Slight Normal [facility] Comment on above: Performed By: #### S CAN CBC #### [facility] [address] [place] [address] WBC (Bld) [#/Vol] 4.4 10*3/uL Normal 3.8-11.6 [facility] Comment on above: Performed By: #### S CAN CBC #### [address] Teardrop cell detectionOrder ed By: Ricky Benson on 05-15-2023 Dacrocytes LM Ql (Bld) Slight Fi [facility] WBC Auto (Bld) [#/Vol]Ordere d By: Ricky Benson on 05-15-2023 WBC (Bld) [#/Vol] 4.4 10*3/uL 3.8-11.6 [facility] CBC AUTO DIFFon 11-05-2022 BASO # 0.1 103/ul Normal 0.0-0.1 [facility] Comment on above: Performed By: #### C BC #### [facility] [address] [address] [address] Sherry Quezada Basophils/100 WBC (Bld) 1.4 % Normal 0.2-2.0 [facility] Comment on above: Performed By: #### C BC #### [facility] [address] [address] [address] Sherry Quezada EO # 0.1 103/ul Normal 0.0-0.7 [facility] Comment on above: Performed By: #### C BC #### [facility] [address] [place] [address] Dr. Sherry Quezada Eosinophils/100 WBC (Bld) 2.5 % Normal 0.9-7.0 [facility] Comment on above: Performed By: #### C BC #### [facility] [address] [place] [address] Dr. Sherry Quezada Erythrocyte distribution width (RBC) [Ratio] 16.5 % Critically high 11.0-15.0 [facility] Comment on above: Performed By: #### C BC #### [facility] [address] [place] [address] Dr. Sherry Quezada Hematocrit (Bld) [Volume fraction] 32.1 % Critically low 36.0-48.0 [facility] Comment on above: Performed By: #### C BC #### [facility] [address] [place] [address] Dr. Sherry Quezada Hemoglobin (Bld) [Mass/Vol] 9.3 g/dL Critically low 12.0-16.0 [facility] Comment on above: Performed By: #### C BC #### [facility] [address] [place] [address] Dr. Sherry Quezada IG # 0.01 10e3/ul Normal 0.00-0.03 [facility] Comment on above: Performed By: #### C BC #### [facility] [address] [place] [address] Dr. Sherry Quezada IG % 0.2 % Normal 0.0-0.5 [facility] Comment on above: Performed By: #### C BC #### [facility] [address] [place] [address] Dr. Sherry Quezada LYMPH # 1.3 103/ul Normal 1.2-3.8 [facility] Comment on above: Performed By: #### C BC #### [facility] [address] [place] [address] Dr. Sherry Quezada Lymphocytes/100 WBC (Bld) 22.2 % Normal 20.5-60.0 [facility] Comment on above: Performed By: #### C BC #### [facility] [address] [place] [address] Dr. Sherry Quezada MANUAL DIFF REQ NO Normal [facility] Comment on above: Performed By: #### C BC #### [facility] [address] [place] [address] Dr. Sherry Quezada MCH (RBC) [Entitic mass] 24.4 pg Critically low 26.7-34.0 [facility] Comment on above: Performed By: #### C BC #### [facility] [address] [place] [address] Dr. Sherry Quezada MCHC (RBC) [Mass/Vol] 29.0 g/dL Critically low 29.9-35.2 [facility] Comment on above: Performed By: #### C BC #### [facility] [address] [place] [address] Dr. Sherry Quezada MCV (RBC) [Entitic vol] 84.3 fL Normal 81.0-99.0 [facility] Comment on above: Performed By: #### C BC #### [facility] [address] [place] [address] Dr. Sherry Quezada MONO # 0.5 103/ul Normal 0.3-0.8 [facility] Comment on above: Performed By: #### C BC #### [facility] [address] [place] [address] Dr. Sherry Quezada Monocytes/100 WBC (Bld) 9.1 % Normal 1.7-12.0 [facility] Comment on above: Performed By: #### C BC #### [facility] [address] [place] [address] Dr. Sherry Quezada NEUT # 3.7 103/ul Normal 1.4-6.5 [facility] Comment on above: Performed By: #### C BC #### [facility] [address] [place] [address] Dr. Sherry Quezada Neutrophils/100 WBC (Bld) 64.6 % Normal 43.0-75.0 [facility] Comment on above: Performed By: #### C BC #### [facility] [address] [address] [address] Sherry Quezada Platelet mean volume (Bld) [Entitic vol] 11.0 fL Normal 9.5-13.5 [facility] Comment on above: Performed By: #### C BC #### [facility] [address] [place] [address] Dr. Sherry Quezada PLT 261 103/ul Normal 150-450 [facility] Comment on above: Performed By: #### C BC #### [facility] [address] [address] [address] Sherry Quezada RBC 3.81 106/ul Critically low 4.20-5.40 [facility] Comment on above: Performed By: #### C BC #### [facility] [address] [place] [address] Dr. Sherry Quezada WBC 5.7 103/ul Normal 4.0-11.0 [facility] Comment on above: Performed By: #### C BC #### [facility] [address] [place] [address] Dr. Sherry Quezada FERRITINon 11-05-2022 Ferritin [Mass/Vol] 10.0 ng/mL Normal 8.0-252.0 [facility] Comment on above: Performed By: #### C BC #### [facility] [address] [place] [address] Dr. Sherry Quezada IRON AND TIBCon 11-05-2022 % SATURATION 5.2 % Normal [facility] Comment on above: Performed By: #### C BC #### [facility] [address] [place] [address] Dr. Sherry Quezada Iron [Mass/Vol] 20.0 ug/dL Critically low 50.0-170.0 [facility] Comment on above: Performed By: #### C BC #### [facility] [address] [place] [address] Dr. Sherry Quezada TIBC DIRECT 388.0 ug/dL Normal 250.0-450.0 [facility] Comment on above: Performed By: #### C BC #### [facility] [address] [place] [address] Dr. Sherry Quezada PRBC LEUKOREDUCEDon 10-10-19 ABO and Rh group Nom (Bld) Cross Match Result Compatible Unit Blood Type A Pos Unit Number [id number] Status Information Transfused Product ID Red Blood Cells Product Code [id number] Cross Match Result Compatible Blood Bank Notes CALLED SHAHLA LUCAS ON [place] AT 0905 Unit Blood Type A Pos Unit Number [id number] Status Information Transfused Product ID Red Blood Cells Product Code [id number] Normal [facility] Comment on above: Performed By: #### T SH #### [facility] [address] [place] [address] Dr. Sherry Quezada ABO and Rh group Nom (Bld) Cross Match Result Compatible Unit Blood Type A Pos Unit Number [id number] Status Information Transfused Product ID Red Blood Cells Product Code [id number] Cross Match Result Compatible Unit Blood Type A Pos Unit Number [id number] Status Information Transfused Product ID Red Blood Cells Product Code [id number] Normal [facility] Comment on above: Performed By: #### T SH #### [facility] [address] [place] [address] Dr. Sherry Quezada CBC AUTO DIFFon 10-02-2022 BASO # 0.0 103/ul Normal 0.0-0.1 [facility] Comment on above: Performed By: #### T SH #### [facility] [address] [place] [address] Dr. Sherry Quezada Basophils/100 WBC (Bld) 0.7 % Normal 0.2-2.0 [facility] Comment on above: Performed By: #### T SH #### [facility] [address] [place] [address] Dr. Sherry Quezada EO # 0.2 103/ul Normal 0.0-0.7 [facility] Comment on above: Performed By: #### T SH #### [facility] [address] [place] [address] Dr. Sherry Quezada Eosinophils/100 WBC (Bld) 2.5 % Normal 0.9-7.0 [facility] Comment on above: Performed By: #### T SH #### [facility] [address] [place] [address] Dr. Sherry Quezada Erythrocyte distribution width (RBC) [Ratio] 16.4 % Critically high 11.0-15.0 [facility] Comment on above: Performed By: #### T SH #### [facility] [address] [place] [address] Dr. Sherry Quezada Hematocrit (Bld) [Volume fraction] 31.3 % Critically low 36.0-48.0 [facility] Comment on above: Performed By: #### T SH #### [facility] [address] [place] [address] Dr. Sherry Quezada Hemoglobin (Bld) [Mass/Vol] 9.9 g/dL Critically low 12.0-16.0 [facility] Comment on above: Performed By: #### T SH #### [facility] [address] [place] [address] Dr. Sherry Quezada IG # 0.02 10e3/ul Normal 0.00-0.03 [facility] Comment on above: Performed By: #### T SH #### [facility] [address] [place] [address] Dr. Sherry Quezada IG % 0.3 % Normal 0.0-0.5 [facility] Comment on above: Performed By: #### T SH #### [facility] [address] [place] [address] Dr. Sherry Quezada LYMPH # 1.1 103/ul Critically low 1.2-3.8 [facility] Comment on above: Performed By: #### T SH #### [facility] [address] [place] [address] Dr. Sherry Quezada Lymphocytes/100 WBC (Bld) 17.9 % Critically low 20.5-60.0 [facility] Comment on above: Performed By: #### T SH #### [facility] [address] [place] [address] Dr. Sherry Quezada MANUAL DIFF REQ NO Normal [facility] Comment on above: Performed By: #### T SH #### [facility] [address] [address] [address] Sherry Quezada MCH (RBC) [Entitic mass] 27.1 pg Normal 26.7-34.0 [facility] Comment on above: Performed By: #### T SH #### [facility] [address] [place] [address] Dr. Sherry Quezada MCHC (RBC) [Mass/Vol] 31.6 g/dL Normal 29.9-35.2 [facility] Comment on above: Performed By: #### T SH #### [facility] [address] [place] [address] Dr. Sherry Quezada MCV (RBC) [Entitic vol] 85.8 fL Normal 81.0-99.0 [facility] Comment on above: Performed By: #### T SH #### [facility] [address] [place] [address] Dr. Sherry Quezada MONO # 0.6 103/ul Normal 0.3-0.8 [facility] Comment on above: Performed By: #### T SH #### [facility] [address] [place] [address] Dr. Sherry Quezada Monocytes/100 WBC (Bld) 9.4 % Normal 1.7-12.0 [facility] Comment on above: Performed By: #### T SH #### [facility] [address] [place] [address] Dr. Sherry Quezada NEUT # 4.1 103/ul Normal 1.4-6.5 [facility] Comment on above: Performed By: #### T SH #### [facility] [address] [place] [address] Dr. Sherry Quezada Neutrophils/100 WBC (Bld) 69.2 % Normal 43.0-75.0 [facility] Comment on above: Performed By: #### T SH #### [facility] [address] [place] [address] Dr. Sherry Quezada Platelet mean volume (Bld) [Entitic vol] 10.7 fL Normal 9.5-13.5 [facility] Comment on above: Performed By: #### T SH #### [facility] [address] [place] [address] Dr. Sherry Quezada PLT 220 103/ul Normal 150-450 [facility] Comment on above: Performed By: #### T SH #### [facility] [address] [place] [address] Dr. Sherry Quezada RBC 3.65 106/ul Critically low 4.20-5.40 [facility] Comment on above: Performed By: #### T SH #### [facility] [address] [place] [address] Dr. Sherry Quezada WBC 5.9 103/ul Normal 4.0-11.0 [facility] Comment on above: Performed By: #### T SH #### [facility] [address] [place] [address] Dr. Sherry Quezada HEMOGLOBIN AND HEMATOCRITon 10-02-2022 Hematocrit (Bld) [Volume fraction] 30.6 % Critically low 36.0-48.0 [facility] Comment on above: Performed By: #### C BC #### [facility] [address] [place] [address] Dr. Sherry Quezada Hemoglobin (Bld) [Mass/Vol] 9.9 g/dL Critically low 12.0-16.0 [facility] Comment on above: Performed By: #### C BC #### [facility] [address] [place] [address] Dr. Sherry Quezada MAGNESIUMon 10-02-2022 Magnesium [Mass/Vol] 1.9 mg/dL Normal 1.8-2.4 [facility] Comment on above: Performed By: #### C VDTBH #### [facility] [address] [place] [address] Dr. Sherry Quezada PROF 14(COMP METB)on 023 Albumin [Mass/Vol] 2.7 g/dL Critically low 3.4-5.0 [facility] Comment on above: Performed By: #### C VDTBH #### [facility] [address] [place] [address] Dr. Sherry Quezada Albumin/Globulin [Mass ratio] 1.0 {ratio} Normal [facility] Comment on above: Performed By: #### C VDTBH #### [facility] [address] [address] [address] Sherry Quezada ALP [Catalytic activity/Vol] 74 U/L Normal 46-116 [facility] Comment on above: Performed By: #### C VDTBH #### [facility] [address] [address] [address] Sherry Quezada ALT [Catalytic activity/Vol] 13 U/L Critically low 14-59 [facility] Comment on above: Performed By: #### C VDTBH #### [facility] [address] [place] [address] Dr. Sherry Quezada Anion gap [Moles/Vol] 9.6 mmol/L Normal [facility] Comment on above: Performed By: #### C VDTBH #### [facility] [address] [place] [address] Dr. Sherry Quezada AST [Catalytic activity/Vol] 11 U/L Critically low 15-37 [facility] Comment on above: Performed By: #### C VDTBH #### [facility] [address] [place] [address] Dr. Sherry Quezada Bilirubin [Mass/Vol] 1.2 mg/dL Critically high 0.2-1.0 [facility] Comment on above: Performed By: #### C VDTBH #### [facility] [address] [place] [address] Dr. Sherry Quezada Calcium [Mass/Vol] 8.3 mg/dL Critically low 8.5-10.1 [facility] Comment on above: Performed By: #### C VDTBH #### [facility] [address] [place] [address] Dr. Sherry Quezada Chloride [Moles/Vol] 109 mmol/L Critically high 98-107 [facility] Comment on above: Performed By: #### C VDTBH #### [facility] [address] [place] [address] Dr. Sherry Quezada CO2 [Moles/Vol] 26.4 mmol/L Normal 21.0-32.0 [facility] Comment on above: Performed By: #### C VDTBH #### [facility] [address] [place] [address] Dr. Sherry Quezada Creatinine [Mass/Vol] 0.81 mg/dL Normal 0.55-1.02 [facility] Comment on above: Performed By: #### C VDTBH #### [facility] [address] [place] [address] Dr. Sherry Quezada EGFR-AF [place] >60 Normal >=60 [facility] Comment on above: Performed By: #### C VDTBH #### [facility] [address] [place] [address] Dr. Sherry Quezada EGFR-NON AF [place] >60 Normal >=60 [facility] Comment on above: Performed By: #### C VDTBH #### [facility] [address] [place] [address] Dr. Sherry Quezada Globulin (S) [Mass/Vol] 2.7 g/dL Normal [facility] Comment on above: Performed By: #### C VDTBH #### [facility] [address] [place] [address] Dr. Sherry Quezada Glucose [Mass/Vol] 96 mg/dL Normal 74-106 [facility] Comment on above: Performed By: #### C VDTBH #### [facility] [address] [place] [address] Dr. Sherry Quezada Potassium [Moles/Vol] 4.0 mmol/L Normal 3.5-5.1 [facility] Comment on above: Performed By: #### C VDTBH #### [facility] [address] [place] [address] Dr. Sherry Quezada Protein [Mass/Vol] 5.4 g/dL Critically low 6.4-8.2 [facility] Comment on above: Performed By: #### C VDTBH #### [facility] [address] [place] [address] Dr. Sherry Quezada Sodium [Moles/Vol] 141 mmol/L Normal 136-145 [facility] Comment on above: Performed By: #### C VDTBH #### [facility] [address] [place] [address] Dr. Sherry Quezada Urea nitrogen [Mass/Vol] 16.0 mg/dL Normal 7.0-18.0 [facility] Comment on above: Performed By: #### C VDTBH #### [facility] [address] [place] [address] Dr. Sherry Quezada Urea nitrogen/Creatinine [Mass ratio] 19.8 mg/mg Normal [facility] Comment on above: Performed By: #### C VDTBH #### [facility] [address] [place] [address] Dr. Sherry Quezada ER URINE PROFILEon 3 Bilirubin Ql (U) Negative Normal NEGATIVE [facility] Comment on above: Performed By: #### T SH #### [facility] [address] [place] [address] Dr. Sherry Quezada Clarity (U) CLEAR Normal CLEAR [facility] Comment on above: Performed By: #### T SH #### [facility] [address] [place] [address] Dr. Sherry Quezada Color (U) LT. YELLOW Normal YELLOW [facility] Comment on above: Performed By: #### T SH #### [facility] [address] [place] [address] Dr. Sherry CHAPMANLazara A micrscopic examination will be performed if indicated. Normal [facility] Comment on above: Performed By: #### T SH #### [facility] [address] [place] [address] Dr. Sherry Quezada Glucose Ql (U) Negative Normal NEGATIVE [facility] Comment on above: Performed By: #### T SH #### [facility] [address] [place] [address] Dr. Sherry Quezada Hemoglobin Ql (U) Negative Normal NEGATIVE [facility] Comment on above: Performed By: #### T SH #### [facility] [address] [place] [address] Dr. Sherry Quezada Ketones Ql (U) Negative Normal NEGATIVE [facility] Comment on above: Performed By: #### T SH #### [facility] [address] [place] [address] Dr. Sherry Quezada LEUKOCYTES Negative Normal NEGATIVE [facility] Comment on above: Performed By: #### T SH #### [facility] [address] [place] [address] Dr. Sherry Quezada Nitrite Ql (U) Negative Normal NEGATIVE [facility] Comment on above: Performed By: #### T SH #### [facility] [address] [place] [address] Dr. Sherry Quezada pH (U) 5.5 [pH] Normal 5-9 [facility] Comment on above: Performed By: #### T SH #### [facility] [address] [place] [address] Dr. Sherry Quezada SPEC GRAVITY <=1.005 Abnormal 1.005-<=1.025 [facility] Comment on above: Performed By: #### T SH #### [facility] [address] [place] [address] Dr. Sherry Quezada UA PROTEIN Negative Normal NEGATIVE/ TRACE [facility] Comment on above: Performed By: #### T SH #### [facility] [address] [place] [address] Dr. Sherry Quezada UR MICRO IND NOT INDICATED Normal [facility] Comment on above: Performed By: #### T SH #### [facility] [address] [place] [address] Dr. Sherry Quezada Urobilinogen Qn (U) 0.2 {Carlota'U}/dL Normal 0.2 - 1. 0 [facility] Comment on above: Performed By: #### T SH #### [facility] [address] [place] [address] Dr. Sherry Quezada HEMOGLOBIN AND HEMATOCRITon 10-01-2022 Hematocrit (Bld) [Volume fraction] 31.5 % Critically low 36.0-48.0 [facility] Comment on above: Performed By: #### C BC #### [facility] [address] [place] [address] Dr. Sherry Quezada Hemoglobin (Bld) [Mass/Vol] 10.1 g/dL Critically low 12.0-16.0 [facility] Comment on above: Performed By: #### C BC #### [facility] [address] [place] [address] Dr. Sherry Quezada Hematocrit (Bld) [Volume fraction] 27.0 % Critically low 36.0-48.0 [facility] Comment on above: Performed By: #### C BC #### [facility] [address] [place] [address] Dr. Sherry Quezada Hemoglobin (Bld) [Mass/Vol] 8.5 g/dL Critically low 12.0-16.0 [facility] Comment on above: Performed By: #### C BC #### [facility] [address] [place] [address] Dr. Sherry Quezada Hematocrit (Bld) [Volume fraction] 24.7 % Critically low 36.0-48.0 [facility] Comment on above: Performed By: #### C BC #### [facility] [address] [place] [address] Dr. Sherry Quezada Hemoglobin (Bld) [Mass/Vol] 7.6 g/dL Critically low 12.0-16.0 [facility] Comment on above: Performed By: #### C BC #### [facility] [address] [place] [address] Dr. Sherry Quezada MAGNESIUMon 10-01-2022 Magnesium [Mass/Vol] 1.7 mg/dL Critically low 1.8-2.4 [facility] Comment on above: Performed By: #### C VDTBH #### [facility] [address] [place] [address] Dr. Sherry Quezada PROF 14(COMP METB)on 023 Albumin [Mass/Vol] 2.6 g/dL Critically low 3.4-5.0 [facility] Comment on above: Performed By: #### C VDTBH #### [facility] [address] [place] [address] Dr. Sherry Quezada Albumin/Globulin [Mass ratio] 1.0 {ratio} Normal [facility] Comment on above: Performed By: #### C VDTBH #### [facility] [address] [address] [address] Sherry Quezada ALP [Catalytic activity/Vol] 81 U/L Normal 46-116 [facility] Comment on above: Performed By: #### C VDTBH #### [facility] [address] [address] [address] Sherry Quezada ALT [Catalytic activity/Vol] 12 U/L Critically low 14-59 [facility] Comment on above: Performed By: #### C VDTBH #### [facility] [address] [place] [address] Dr. Sherry Quezada Anion gap [Moles/Vol] 9.3 mmol/L Normal [facility] Comment on above: Performed By: #### C VDTBH #### [facility] [address] [place] [address] Dr. Sherry Quezada AST [Catalytic activity/Vol] 14 U/L Critically low 15-37 [facility] Comment on above: Performed By: #### C VDTBH #### [facility] [address] [place] [address] Dr. Sherry Quezada Bilirubin [Mass/Vol] 1.7 mg/dL Critically high 0.2-1.0 [facility] Comment on above: Performed By: #### C VDTBH #### [facility] [address] [place] [address] Dr. Sherry Quezada Calcium [Mass/Vol] 7.8 mg/dL Critically low 8.5-10.1 [facility] Comment on above: Performed By: #### C VDTBH #### [facility] [address] [place] [address] Dr. Sherry Quezada Chloride [Moles/Vol] 108 mmol/L Critically high 98-107 [facility] Comment on above: Performed By: #### C VDTBH #### [facility] [address] [place] [address] Dr. Sherry Quezada CO2 [Moles/Vol] 26.8 mmol/L Normal 21.0-32.0 [facility] Comment on above: Performed By: #### C VDTBH #### [facility] [address] [place] [address] Dr. Sherry Quezada Creatinine [Mass/Vol] 0.74 mg/dL Normal 0.55-1.02 [facility] Comment on above: Performed By: #### C VDTBH #### [facility] [address] [place] [address] Dr. Sherry Quezada EGFR-AF [place] >60 Normal >=60 [facility] Comment on above: Performed By: #### C VDTBH #### [facility] [address] [place] [address] Dr. Sherry Quezada EGFR-NON AF [place] >60 Normal >=60 [facility] Comment on above: Performed By: #### C VDTBH #### [facility] [address] [place] [address] Dr. Sherry Quezada Globulin (S) [Mass/Vol] 2.6 g/dL Normal [facility] Comment on above: Performed By: #### C VDTBH #### [facility] [address] [place] [address] Dr. Sherry Quezada Glucose [Mass/Vol] 88 mg/dL Normal 74-106 [facility] Comment on above: Performed By: #### C VDTBH #### [facility] [address] [place] [address] Dr. Sherry Quezada Potassium [Moles/Vol] 4.1 mmol/L Normal 3.5-5.1 [facility] Comment on above: Performed By: #### C VDTBH #### [facility] [address] [place] [address] Dr. Sherry Quezada Protein [Mass/Vol] 5.2 g/dL Critically low 6.4-8.2 [facility] Comment on above: Performed By: #### C VDTBH #### [facility] [address] [place] [address] Dr. Sherry Quezada Sodium [Moles/Vol] 140 mmol/L Normal 136-145 [facility] Comment on above: Performed By: #### C VDTBH #### [facility] [address] [place] [address] Dr. Sherry Quezada Urea nitrogen [Mass/Vol] 13.0 mg/dL Normal 7.0-18.0 [facility] Comment on above: Performed By: #### C VDTBH #### [facility] [address] [place] [address] Dr. Sherry Quezada Urea nitrogen/Creatinine [Mass ratio] 17.6 mg/mg Normal [facility] Comment on above: Performed By: #### C VDTBH #### [facility] [address] [place] [address] Dr. Sherry Quezada CBC AUTO DIFFon 09-30-2022 BASO # 0.0 103/ul Normal 0.0-0.1 [facility] Comment on above: Performed By: #### C BC #### [facility] [address] [place] [address] Dr. Sherry Quezada Basophils/100 WBC (Bld) 0.5 % Normal 0.2-2.0 [facility] Comment on above: Performed By: #### C BC #### [facility] [address] [place] [address] Dr. Sherry Quezada EO # 0.0 103/ul Normal 0.0-0.7 [facility] Comment on above: Performed By: #### C BC #### [facility] [address] [place] [address] Dr. Sherry Quezada Eosinophils/100 WBC (Bld) 0.2 % Critically low 0.9-7.0 [facility] Comment on above: Performed By: #### C BC #### [facility] [address] [place] [address] Dr. Sherry Quezada Erythrocyte distribution width (RBC) [Ratio] 17.5 % Critically high 11.0-15.0 [facility] Comment on above: Performed By: #### C BC #### [facility] [address] [place] [address] Dr. Sherry Quezada Hematocrit (Bld) [Volume fraction] 21.5 % Critically low 36.0-48.0 [facility] Comment on above: Performed By: #### C BC #### [facility] [address] [place] [address] Dr. Sherry Quezada Hemoglobin (Bld) [Mass/Vol] 6.3 g/dL Critically low 12.0-16.0 [facility] Comment on above: Performed By: #### C BC #### [facility] [address] [place] [address] Dr. Sherry Quezada IG # 0.06 10e3/ul Critically high 0.00-0.[address] [facility] Comment on above: Performed By: #### C BC #### [facility] [address] [place] [address] Dr. Sherry Quezada IG % 0.7 % Critically high 0.0-0.5 [facility] Comment on above: Performed By: #### C BC #### [facility] [address] [place] [address] Dr. Sherry Quezada LYMPH # 1.0 103/ul Critically low 1.2-3.8 [facility] Comment on above: Performed By: #### C BC #### [facility] [address] [place] [address] Dr. Sherry Quezada Lymphocytes/100 WBC (Bld) 11.3 % Critically low 20.5-60.0 [facility] Comment on above: Performed By: #### C BC #### [facility] [address] [place] [address] Dr. Sherry Quezada MANUAL DIFF REQ NO Normal [facility] Comment on above: Performed By: #### C BC #### [facility] [address] [place] [address] Dr. Sherry Quezada MCH (RBC) [Entitic mass] 24.6 pg Critically low 26.7-34.0 [facility] Comment on above: Performed By: #### C BC #### [facility] [address] [place] [address] Dr. Sherry Quezada MCHC (RBC) [Mass/Vol] 29.3 g/dL Critically low 29.9-35.2 [facility] Comment on above: Performed By: #### C BC #### [facility] [address] [address] [address] Sherry Quezada MCV (RBC) [Entitic vol] 84.0 fL Normal 81.0-99.0 [facility] Comment on above: Performed By: #### C BC #### [facility] [address] [address] [address] Sherry Quezada MONO # 0.5 103/ul Normal 0.3-0.8 [facility] Comment on above: Performed By: #### C BC #### [facility] [address] [place] [address] Dr. Sherry Quezada Monocytes/100 WBC (Bld) 5.4 % Normal 1.7-12.0 [facility] Comment on above: Performed By: #### C BC #### [facility] [address] [place] [address] Dr. Sherry Quezada NEUT # 7.2 103/ul Critically high 1.4-6.5 [facility] Comment on above: Performed By: #### C BC #### [facility] [address] [place] [address] Dr. Sherry Quezada Neutrophils/100 WBC (Bld) 81.9 % Critically high 43.0-75.0 [facility] Comment on above: Performed By: #### C BC #### [facility] [address] [address] [address] Sherry Quezada Platelet mean volume (Bld) [Entitic vol] 11.2 fL Normal 9.5-13.5 [facility] Comment on above: Performed By: #### C BC #### [facility] [address] [place] [address] Dr. Sherry Quezada PLT 325 103/ul Normal 150-450 [facility] Comment on above: Performed By: #### C BC #### [facility] [address] [address] [address] Sherry Quezada RBC 2.56 106/ul Critically low 4.20-5.40 [facility] Comment on above: Performed By: #### C BC #### [facility] [address] [place], [place] [address] Dr. Sherry Quezada WBC 8.8 103/ul Normal 4.0-11.0 [facility] Comment on above: Performed By: #### C BC #### [facility] [address] [place], [place] [address] ABD/PELV W CONon 09-30-[address] ABD/PELV W CON EXAMINATION: CT ABD/PELV W CON HISTORY: Gastrointestinal hemorrhage COMPARISON: None. Correlation made with CT chest from 06/19/2019. TECHNIQUE: Axial CT images of the abdomen and pelvis from the lung bases through the proximal femora performed after the administration of IV contrast. Dose reduction techniques were achieved by using automated exposure control and/or adjustment of mA and/or kV according to patient size and/or use of iterative reconstruction technique. FINDINGS: Lower chest: No consolidation. No pleural effusion or pneumothorax. A small, lobulated area of fluid right inferior mediastinum is nonspecific, however it appears nonaggressive, unchanged from 2019. There is a large hiatal hernia containing the majority of the stomach. Liver: No suspicious liver lesions. Portal veins appear patent. A tiny low-density focus is seen in the right hepatic lobe favoring a cyst. Gallbladder: Cholecystectomy. Spleen: Normal size. Pancreas: No suspicious pancreatic lesions. The pancreatic duct is not dilated. Adrenal glands: No adrenal nodules. Kidneys: No hydronephrosis or obstructing renal stones. Bladder / Pelvic organs: Unremarkable. Bowel: No bowel wall thickening. The appendix is unremarkable. Diverticulosis without radiographic evidence of diverticulitis. Lymph nodes: No retroperitoneal, mesenteric, or pelvic lymphadenopathy. Peritoneum / Retroperitoneum: No free fluid or air within the abdomen. Vessels: No infrarenal aortic aneurysm. Bones and soft tissues: No suspicious lesion in the bones. IMPRESSION: 1. No acute findings in the abdomen or pelvis. No findings to specifically suggest acute GI bleed. 2. There is a large hiatal hernia containing the majority of the stomach. Electronically authenticated by: SARAI LUCAS Date: 2022-09-30 20:50 Normal [facility] Covid-19 PCR (CVDTBH)on 09-06 SARS-CoV-2 (COVID-19) RNA MELITON+probe Ql (Unsp spec) Not detected Normal NOT DETECTED [facility] Comment on above: Result Comment: When diagnostic testing is negative, the possibility of a false negative should be considered in the context of a patient's recent exposures and the presence of clinical signs and symptoms consistent with SARS-CoV-2. This test is not yet approved or cleared by the [place] FDA. When there are no FDA-approved or cleared tests available, and other criteria are met, FDA can make tests available under an emergency access mechanism called an Emergency Use Authorization (EUA). The EUA for this test is supported by the [place] of Health and Human Service's declaration that circumstances exist to justify the emergency use of in vitro diagnostics for the detection and/or diagnosis of the virus that causes COVID-19. This EUA will remain in effect for the duration of the COVID-19 declaration justifying emergency of IVDs, unless it is terminated or revoked by the FDA (after which the test may no longer be used). Performed By: #### C VDTBH #### [facility] [address] [place] [address] Dr. Sherry MAYNARD AND TIBCon 09-30-2022 % SATURATION 25.8 % Normal [facility] Comment on above: Performed By: #### C BC #### [facility] [address] [place] [address] Dr. Sherry Quezada Iron [Mass/Vol] 99.0 ug/dL Normal 50.0-170.0 [facility] Comment on above: Performed By: #### C BC #### [facility] [address] [place] [address] Dr. Shrery Quezada TIBC DIRECT 384.0 ug/dL Normal 250.0-450.0 [facility] Comment on above: Performed By: #### C BC #### [facility] [address] [place] [address] Dr. Sherry Quezada OCC BLD IMMUNO SCREENon 09-06 OCCULT BLOOD Positive Abnormal NEGATIVE [facility] Comment on above: Performed By: #### C BC #### [facility] [address] [address] [address] Sherry Quezada PROF CHEM 8 (BAS METB)on Anion gap [Moles/Vol] 17.6 mmol/L Normal [facility] Comment on above: Performed By: #### C VDTBH #### [facility] [address] [place] [address] Dr. Sherry Quezada Calcium [Mass/Vol] 8.7 mg/dL Normal 8.5-10.1 [facility] Comment on above: Performed By: #### C VDTBH #### [facility] [address] [place] [address] Dr. Sherry Quezada Chloride [Moles/Vol] 104 mmol/L Normal 98-107 [facility] Comment on above: Performed By: #### C VDTBH #### [facility] [address] [place] [address] Dr. Sherry Quezada CO2 [Moles/Vol] 20.3 mmol/L Critically low 21.0-32.0 [facility] Comment on above: Performed By: #### C VDTBH #### [facility] [address] [place] [address] Dr. Sherry Quezada Creatinine [Mass/Vol] 0.91 mg/dL Normal 0.55-1.02 [facility] Comment on above: Performed By: #### C VDTBH #### [facility] [address] [place] [address] Dr. Sherry Quezada EGFR-AF [place] >60 Normal >=60 [facility] Comment on above: Performed By: #### C VDTBH #### [facility] [address] [place] [address] Dr. Sherry Quezada EGFR-NON AF [place] >60 Normal >=60 [facility] Comment on above: Performed By: #### C VDTBH #### [facility] [address] [place] [address] Dr. Sherry Quezada Glucose [Mass/Vol] 124 mg/dL Critically high 74-106 [facility] Comment on above: Performed By: #### C VDTBH #### [facility] [address] [address] [address] Sherry Quezada Potassium [Moles/Vol] 3.9 mmol/L Normal 3.5-5.1 [facility] Comment on above: Performed By: #### C VDTBH #### [facility] [address] [place] [address] Dr. Sherry Quezada Sodium [Moles/Vol] 138 mmol/L Normal 136-145 [facility] Comment on above: Performed By: #### C VDTBH #### [facility] [address] [place] [address] Dr. Sherry Quezada Urea nitrogen [Mass/Vol] 15.0 mg/dL Normal 7.0-18.0 [facility] Comment on above: Performed By: #### C VDTBH #### [facility] [address] [place] [address] Dr. Sherry Quezada Urea nitrogen/Creatinine [Mass ratio] 16.5 mg/mg Normal [facility] Comment on above: Performed By: #### C VDTBH #### [facility] [address] [place] [address] Dr. Sherry Quezada TYPE AND SCREENon 09-30-2022 TYPE AND SCREEN Negative Normal [facility] Comment on above: Performed By: #### T #### [facility] [address] [place] [address] Dr. Sherry Quezada CBC AUTO DIFFon 08-06-2022 BASO # 0.1 103/ul Normal 0.0-0.1 [facility] Comment on above: Performed By: #### C BC #### [facility] [address] [place] [address] Dr. Sherry Quezada Basophils/100 WBC (Bld) 1.1 % Normal 0.2-2.0 [facility] Comment on above: Performed By: #### C BC #### [facility] [address] [place] [address] Dr. Sherry Quezada EO # 0.1 103/ul Normal 0.0-0.7 [facility] Comment on above: Performed By: #### C BC #### [facility] [address] [place] [address] Dr. Sherry Quezada Eosinophils/100 WBC (Bld) 1.6 % Normal 0.9-7.0 [facility] Comment on above: Performed By: #### C BC #### [facility] [address] [place] [address] Dr. Sherry Quezada Erythrocyte distribution width (RBC) [Ratio] 14.9 % Normal 11.0-15.0 [facility] Comment on above: Performed By: #### C BC #### [facility] [address] [place] [address] Dr. Sherry Quezada Hematocrit (Bld) [Volume fraction] 35.2 % Critically low 36.0-48.0 [facility] Comment on above: Performed By: #### C BC #### [facility] [address] [place] [address] Dr. Sherry Quezada Hemoglobin (Bld) [Mass/Vol] 10.7 g/dL Critically low 12.0-16.0 [facility] Comment on above: Performed By: #### C BC #### [facility] [address] [place] [address] Dr. Sherry Quezada IG # 0.03 10e3/ul Normal 0.00-0.03 [facility] Comment on above: Performed By: #### C BC #### [facility] [address] [place] [address] Dr. Sherry Quezada IG % 0.4 % Normal 0.0-0.5 [facility] Comment on above: Performed By: #### C BC #### [facility] [address] [place] [address] Dr. Sherry Quezada LYMPH # 1.6 103/ul Normal 1.2-3.8 [facility] Comment on above: Performed By: #### C BC #### [facility] [address] [place] [address] Dr. Sherry Quezada Lymphocytes/100 WBC (Bld) 19.5 % Critically low 20.5-60.0 [facility] Comment on above: Performed By: #### C BC #### [facility] [address] [place] [address] Dr. Sherry Quezada MANUAL DIFF REQ NO Normal [facility] Comment on above: Performed By: #### C BC #### [facility] [address] [place] [address] Dr. Sherry Quezada MCH (RBC) [Entitic mass] 28.6 pg Normal 26.7-34.0 [facility] Comment on above: Performed By: #### C BC #### [facility] [address] [place] [address] Dr. Sherry Quezada MCHC (RBC) [Mass/Vol] 30.4 g/dL Normal 29.9-35.2 [facility] Comment on above: Performed By: #### C BC #### [facility] [address] [place] [address] Dr. Sherry Quezada MCV (RBC) [Entitic vol] 94.1 fL Normal 81.0-99.0 [facility] Comment on above: Performed By: #### C BC #### [facility] [address] [place] [address] Dr. Sherry Quezada MONO # 0.6 103/ul Normal 0.3-0.8 [facility] Comment on above: Performed By: #### C BC #### [facility] [address] [place] [address] Dr. Sherry Quezada Monocytes/100 WBC (Bld) 6.7 % Normal 1.7-12.0 [facility] Comment on above: Performed By: #### C BC #### [facility] [address] [place] [address] Dr. Sherry Quezada NEUT # 5.9 103/ul Normal 1.4-6.5 [facility] Comment on above: Performed By: #### C BC #### [facility] [address] [place] [address] Dr. Sherry Quezada Neutrophils/100 WBC (Bld) 70.7 % Normal 43.0-75.0 [facility] Comment on above: Performed By: #### C BC #### [facility] [address] [address] [address] Sherry Quezada Platelet mean volume (Bld) [Entitic vol] 9.7 fL Normal 9.5-13.5 [facility] Comment on above: Performed By: #### C BC #### [facility] [address] [address] [address] Sherry Quezada PLT 327 103/ul Normal 150-450 [facility] Comment on above: Performed By: #### C BC #### [facility] [address] [address] [address] Sherry Quezada RBC 3.74 106/ul Critically low 4.20-5.40 [facility] Comment on above: Performed By: #### C BC #### [facility] [address] [place] [address] Dr. Sherry Quezada WBC 8.3 103/ul Normal 4.0-11.0 [facility] Comment on above: Performed By: #### C BC #### [facility] [address] [place] [address] Dr. Sherry Quezada FERRITINon 08-06-2022 Ferritin [Mass/Vol] 34.0 ng/mL Normal 8.0-252.0 [facility] Comment on above: Performed By: #### C BC #### [facility] [address] [place] [address] Dr. Sherry Quezada IRON AND TIBCon 08-06-2022 % SATURATION 5.9 % Normal [facility] Comment on above: Performed By: #### C BC #### [facility] [address] [place] [address] Dr. Sherry Quezada Iron [Mass/Vol] 20.0 ug/dL Critically low 50.0-170.0 [facility] Comment on above: Performed By: #### C BC #### [facility] [address] [place] [address] Dr. Sherry Quezada TIBC DIRECT 338.0 ug/dL Normal 250.0-450.0 [facility] Comment on above: Performed By: #### C BC #### [facility] [address] [address] [address] Sherry Quezada CBC AUTO DIFFon 06-04-2022 BASO # 0.1 103/ul Normal 0.0-0.1 [facility] Comment on above: Performed By: #### T SH #### [facility] [address] [place] [address] Dr. Sherry Quezada Basophils/100 WBC (Bld) 1.0 % Normal 0.2-2.0 [facility] Comment on above: Performed By: #### T SH #### [facility] [address] [place] [address] Dr. Sherry Quezada EO # 0.1 103/ul Normal 0.0-0.7 [facility] Comment on above: Performed By: #### T SH #### [facility] [address] [place] [address] Dr. Sherry Quezada Eosinophils/100 WBC (Bld) 2.1 % Normal 0.9-7.0 [facility] Comment on above: Performed By: #### T SH #### [facility] [address] [place] [address] Dr. Sherry Quezada Erythrocyte distribution width (RBC) [Ratio] 19.3 % Critically high 11.0-15.0 [facility] Comment on above: Performed By: #### T SH #### [facility] [address] [place] [address] Dr. Sherry Quezada Hematocrit (Bld) [Volume fraction] 38.4 % Normal 36.0-48.0 [facility] Comment on above: Performed By: #### T SH #### [facility] [address] [place] [address] Dr. Sherry Quezada Hemoglobin (Bld) [Mass/Vol] 11.7 g/dL Critically low 12.0-16.0 [facility] Comment on above: Performed By: #### T SH #### [facility] [address] [place] [address] Dr. Sherry Quezada IG # 0.03 10e3/ul Normal 0.00-0.03 [facility] Comment on above: Performed By: #### T SH #### [facility] [address] [place] [address] Dr. Sherry Quezada IG % 0.5 % Normal 0.0-0.5 [facility] Comment on above: Performed By: #### T SH #### [facility] [address] [place] [address] Dr. Sherry Quezada LYMPH # 1.2 103/ul Normal 1.2-3.8 [facility] Comment on above: Performed By: #### T SH #### [facility] [address] [place] [address] Dr. Sherry Quezada Lymphocytes/100 WBC (Bld) 21.1 % Normal 20.5-60.0 [facility] Comment on above: Performed By: #### T SH #### [facility] [address] [place] [address] Dr. Sherry Quezada MANUAL DIFF REQ NO Normal [facility] Comment on above: Performed By: #### T SH #### [facility] [address] [place] [address] Dr. Sherry Quezada MCH (RBC) [Entitic mass] 27.0 pg Normal 26.7-34.0 [facility] Comment on above: Performed By: #### T SH #### [facility] [address] [place] [address] Dr. Sherry Quezada MCHC (RBC) [Mass/Vol] 30.5 g/dL Normal 29.9-35.2 [facility] Comment on above: Performed By: #### T SH #### [facility] [address] [place] [address] Dr. Sherry Quezada MCV (RBC) [Entitic vol] 88.5 fL Normal 81.0-99.0 [facility] Comment on above: Performed By: #### T SH #### [facility] [address] [place] [address] Dr. Sherry Quezada MONO # 0.4 103/ul Normal 0.3-0.8 [facility] on above: Performed By: #### T SH #### [facility] [address] [place] [address] Dr. Sherry Quezada Monocytes/100 WBC (Bld) 7.5 % Normal 1.7-12.0 [facility] Comment on above: Performed By: #### T SH #### [facility] [address] [place] [address] Dr. Sherry Quezada NEUT # 3.9 103/ul Normal 1.4-6.5 [facility] Comment on above: Performed By: #### T SH #### [facility] [address] [place] [address] Dr. Sherry Quezada Neutrophils/100 WBC (Bld) 67.8 % Normal 43.0-75.0 [facility] Comment on above: Performed By: #### T SH #### [facility] [address] [place] [address] Dr. Sherry Quezada Platelet mean volume (Bld) [Entitic vol] 10.2 fL Normal 9.5-13.5 [facility] Comment on above: Performed By: #### T SH #### [facility] [address] [place] [address] Dr. Sherry Quezada PLT 324 103/ul Normal 150-450 [facility] Comment on above: Performed By: #### T SH #### [facility] [address] [place] [address] Dr. Sherry Quezada RBC 4.34 106/ul Normal 4.20-5.40 [facility] Comment on above: Performed By: #### T SH #### [facility] [address] [place] [address] Dr. Sherry Quezada WBC 5.8 103/ul Normal 4.0-11.0 [facility] Comment on above: Performed By: #### T SH #### [facility] [address] [place] [address] Dr. Sherry Quezada FERRITINon 06-04-2022 Ferritin [Mass/Vol] 48.0 ng/mL Normal 8.0-252.0 [facility] Comment on above: Performed By: #### C BC #### [facility] [address] [place] [address] Dr. Sherry Quezada GLYCOHEMOGLOBIN A1Con 2021 ADA RECOMMENDATION SEE BELOW Normal [facility] Comment on above: Result Comment: ADA RECOMMENDED LIMIT 4.0 - 6.0 ADA THERAPEUTIC TARGET < 7.0 ACTION SUGGESTED > 7.0 Performed By: #### T SH #### [facility] [address] [address] [address] Sherry Quezada Glucose [Mass/Vol] 77 mg/dL Normal [facility] Comment on above: Performed By: #### T SH #### [facility] [address] [address] [address] Sherry Quezada HbA1c (Bld) [Mass fraction] 4.3 % Critically low 4.5-6.2 [facility] Comment on above: Performed By: #### T SH #### [facility] [address] [address] [address] Sherry Quezada IRON AND TIBCon 06-04-2022 % SATURATION 13.4 % Normal [facility] Comment on above: Performed By: #### C BC #### [facility] [address] [address] [address] Sherry Quezada Iron [Mass/Vol] 42.0 ug/dL Critically low 50.0-170.0 [facility] Comment on above: Performed By: #### C BC #### [facility] [address] [address] [address] Sherry Quezada TIBC DIRECT 314.0 ug/dL Normal 250.0-450.0 [facility] Comment on above: Performed By: #### C BC #### [facility] [address] [address] [address] Sherry Quezada PROF 14(COMP METB)on 022 Albumin [Mass/Vol] 3.4 g/dL Normal 3.4-5.0 [facility] Comment on above: Performed By: #### C VDTBH #### [facility] [address] [address] [address] Sherry Quezada Albumin/Globulin [Mass ratio] 0.9 {ratio} Normal [facility] Comment on above: Performed By: #### C VDTBH #### [facility] [address] [address] [address] Sherry Quezada ALP [Catalytic activity/Vol] 97 U/L Normal 46-116 [facility] Comment on above: Performed By: #### C VDTBH #### [facility] [address] [address] [address] Sherry Quezada ALT [Catalytic activity/Vol] 19 U/L Normal 14-59 [facility] Comment on above: Performed By: #### C VDTBH #### [facility] [address] [address] [address] Sherry Quezada Anion gap [Moles/Vol] 12.4 mmol/L Normal [facility] Comment on above: Performed By: #### C VDTBH #### [facility] [address] [address] [address] Sherry Quezada AST [Catalytic activity/Vol] 12 U/L Critically low 15-37 [facility] Comment on above: Performed By: #### C VDTBH #### [facility] [address] [address] [address] Sherry Quezada Bilirubin [Mass/Vol] 0.6 mg/dL Normal 0.2-1.0 [facility] Comment on above: Performed By: #### C VDTBH #### [facility] [address] [address] [address] Sherry Quezada Calcium [Mass/Vol] 8.9 mg/dL Normal 8.5-10.1 [facility] Comment on above: Performed By: #### C VDTBH #### [facility] [address] [address] [address] Sherry Quezada Chloride [Moles/Vol] 106 mmol/L Normal 98-107 [facility] Comment on above: Performed By: #### C VDTBH #### [facility] [address] [address] [address] Sherry Quezada CO2 [Moles/Vol] 24.6 mmol/L Normal 21.0-32.0 [facility] Comment on above: Performed By: #### C VDTBH #### [facility] [address] [address] [address] Sherry Quezada Creatinine [Mass/Vol] 0.88 mg/dL Normal 0.55-1.02 [facility] Comment on above: Performed By: #### C VDTBH #### [facility] [address] [address] [address] Sherry Quezada EGFR-AF [place] >60 Normal >=60 [facility] Comment on above: Performed By: #### C VDTBH #### [facility] [address] [address] [address] Sherry Quezada EGFR-NON AF [place] >60 Normal >=60 [facility] Comment on above: Performed By: #### C VDTBH #### [facility] [address] [place] [address] Dr. Sherry Quezada Globulin (S) [Mass/Vol] 3.6 g/dL Normal [facility] Comment on above: Performed By: #### C VDTBH #### [facility] [address] [address] [address] Sherry Quezada Glucose [Mass/Vol] 99 mg/dL Normal 74-106 [facility] Comment on above: Performed By: #### C VDTBH #### [facility] [address] [address] [address] Sherry Quezada Potassium [Moles/Vol] 4.0 mmol/L Normal 3.5-5.1 [facility] Comment on above: Performed By: #### C VDTBH #### [facility] [address] [address] [address] Sherry Quezada Protein [Mass/Vol] 7.0 g/dL Normal 6.4-8.2 [facility] Comment on above: Performed By: #### C VDTBH #### [facility] [address] [address] [address] Sherry Quezada Sodium [Moles/Vol] 139 mmol/L Normal 136-145 [facility] Comment on above: Performed By: #### C VDTBH #### [facility] [address] [place] [address] Dr. Sherry Quezada Urea nitrogen [Mass/Vol] 13.0 mg/dL Normal 7.0-18.0 [facility] Comment on above: Performed By: #### C VDTBH #### [facility] [address] [place] [address] Dr. Sherry Quezada Urea nitrogen/Creatinine [Mass ratio] 14.8 mg/mg Normal [facility] Comment on above: Performed By: #### C VDTBH #### [facility] [address] [place] [address] Dr. Sherry Quezada T3, TOTAL (TRIIODOTHYRONINE) on 04-04-2022 T3, TOTAL 95 ng/dL Normal 71-180 [facility] Comment on above: Performed By: #### T 3TOTAL #### [facility] [address] [place] [address] Dr. Sherry Quezada CBC AUTO DIFFon 04-03-2022 BASO # 0.1 103/ul Normal 0.0-0.1 [facility] Comment on above: Performed By: #### C BC #### [facility] [address] [place] [address] Dr. Sherry Quezada Basophils/100 WBC (Bld) 1.3 % Normal 0.2-2.0 [facility] Comment on above: Performed By: #### C BC #### [facility] [address] [place] [address] Dr. Sherry Quezada EO # 0.1 103/ul Normal 0.0-0.7 [facility] Comment on above: Performed By: #### C BC #### [facility] [address] [place] [address] Dr. Sherry Quezada Eosinophils/100 WBC (Bld) 1.3 % Normal 0.9-7.0 [facility] Comment on above: Performed By: #### C BC #### [facility] [address] [place] [address] Dr. Shrery Quezada Erythrocyte distribution width (RBC) [Ratio] 19.4 % Critically high 11.0-15.0 [facility] Comment on above: Performed By: #### C BC #### [facility] [address] [place] [address] Dr. Sherry Quezada Hematocrit (Bld) [Volume fraction] 33.2 % Critically low 36.0-48.0 [facility] Comment on above: Performed By: #### C BC #### [facility] [address] [place] [address] Dr. Sherry Quezada Hemoglobin (Bld) [Mass/Vol] 9.7 g/dL Critically low 12.0-16.0 [facility] Comment on above: Performed By: #### C BC #### [facility] [address] [place] [address] Dr. Sherry Quezada IG # 0.02 10e3/ul Normal 0.00-0.03 [facility] Comment on above: Performed By: #### C BC #### [facility] [address] [place] [address] Dr. Sherry Quezada IG % 0.3 % Normal 0.0-0.5 [facility] Comment on above: Performed By: #### C BC #### [facility] [address] [place] [address] Dr. Sherry Quezada LYMPH # 0.9 103/ul Critically low 1.2-3.8 [facility] Comment on above: Performed By: #### C BC #### [facility] [address] [place] [address] Dr. Sherry Quezada Lymphocytes/100 WBC (Bld) 14.7 % Critically low 20.5-60.0 [facility] Comment on above: Performed By: #### C BC #### [facility] [address] [place] [address] Dr. Sherry Quezada MANUAL DIFF REQ NO Normal [facility] Comment on above: Performed By: #### C BC #### [facility] [address] [place] [address] Dr. Sherry Quezada MCH (RBC) [Entitic mass] 24.9 pg Critically low 26.7-34.0 [facility] Comment on above: Performed By: #### C BC #### [facility] [facility] [address] [address] [address] Sherry Quezada MCHC (RBC) [Mass/Vol] 29.2 g/dL Critically low 29.9-35.2 [facility] Comment on above: Performed By: #### C BC #### [facility] [address] [address] [address] Sherry Quezada MCV (RBC) [Entitic vol] 85.1 fL Normal 81.0-99.0 [facility] Comment on above: Performed By: #### C BC #### [facility] [address] [place] [address] Dr. Sherry Quezada MONO # 0.5 103/ul Normal 0.3-0.8 [facility] Comment on above: Performed By: #### C BC #### [facility] [address] [place] [address] Dr. Sherry Quezada Monocytes/100 WBC (Bld) 7.8 % Normal 1.7-12.0 [facility] Comment on above: Performed By: #### C BC #### [facility] [address] [place] [address] Dr. Sherry Quezada NEUT # 4.6 103/ul Normal 1.4-6.5 [facility] Comment on above: Performed By: #### C BC #### [facility] [address] [place] [address] Dr. Sherry Quezada Neutrophils/100 WBC (Bld) 74.6 % Normal 43.0-75.0 [facility] Comment on above: Performed By: #### C BC #### [facility] [address] [address] [address] Sherry Quezada Platelet mean volume (Bld) [Entitic vol] 10.1 fL Normal 9.5-13.5 [facility] Comment on above: Performed By: #### C BC #### [facility] [address] [place] [address] Dr. Sherry Quezada PLT 302 103/ul Normal 150-450 [facility] Comment on above: Performed By: #### C BC #### [facility] [address] [place] [address] Dr. Sherry Quezada RBC 3.90 106/ul Critically low 4.20-5.40 [facility] Comment on above: Performed By: #### C BC #### [facility] [address] [place] [address] Dr. Sherry Quezada WBC 6.1 103/ul Normal 4.0-11.0 [facility] Comment on above: Performed By: #### C BC #### [facility] [address] [place] [address] Dr. Sherry Quezada FERRITINon 04-03-2022 Ferritin [Mass/Vol] 11.0 ng/mL Normal 8.0-252.0 [facility] Comment on above: Performed By: #### F T4, FERR, FETIBC #### [facility] [address] [place] [address] Dr. Sherry Quezada FREE T4on 04-03-2022 Free T4 [Mass/Vol] 1.06 ng/dL Normal 0.76-1.46 [facility] Comment on above: Performed By: #### F T4, FERR, FETIBC #### [facility] [address] [place] [address] Dr. Sherry Quezada IRON AND TIBCon 04-03-2022 % SATURATION 6.0 % Normal [facility] Comment on above: Performed By: #### F T4, FERR, FETIBC #### [facility] [address] [place] [address] Dr. Sherry Quezada Iron [Mass/Vol] 21.0 ug/dL Critically low 50.0-170.0 [facility] Comment on above: Performed By: #### F T4, FERR, FETIBC #### [facility] [address] [place] [address] Dr. Sherry Quezada TIBC DIRECT 352.0 ug/dL Normal 250.0-450.0 [facility] Comment on above: Performed By: #### F T4, FERR, FETIBC #### [facility] [address] [address] [address] Sherry Quezada TSHon 04-03-2022 TSH 0.880 uIU/mL Normal 0.358-3.740 [facility] Comment on above: Performed By: #### T SH #### [facility] [address] [address] [address] Sherry Quezada MG MAMM SCREEN 3D MANJINDER CADon 02-16-2022 MG MAMM SCREEN 3D MANJINDER CAD Patient: JANINE CONDE Exam Date: 02/16/2022 : 1950 Gender:F Ordering : DR SHALOM HAYWARD D.O. Admission #: [id number] Family : Order #: [id number] CLICK HERE TO VIEW EXAM RADIOLOGY REPORT PROCEDURE: MAMMOGRAM SCREENING 3D BILATERAL CAD COMPARISON: MG MAMM SCREEN MANJINDER W CAD, 10/20/2019. MG MAMM SCREEN MANJINDER W CAD, 03/15/2017. DIGITIZED_MAMMO, 05/17/2008. MG MAMM SCREEN 3D MANJINDER CAD, 02/08/2021. INDICATIONS: Screening mammography Calculator Name NCI Breast Cancer Risk Assessment Tool 5 Year Breast Cancer Risk Not Reported. Lifetime Breast Cancer Risk Not Reported. Personal Breast Cancer No Personal Ovarian Cancer No Treatments None Family Cancers None LOCATION: [facility] BREAST COMPOSITION: Scattered areas fibroglandular density. FINDINGS: DIAGNOSTIC CATEGORY 2--BENIGN FINDING: RIGHT BREAST: No significant suspicious finding. Scattered benign-appearing nodules are present. No significant change has occurred. LEFT BREAST: No significant suspicious finding. Scattered benign-appearing nodules are present. No significant change has occurred. RECOMMENDATIONS: ROUTINE MAMMOGRAM AND CLINICAL EVALUATION IN 12 MONTHS. PLEASE NOTE: A NORMAL MAMMOGRAM DOES NOT EXCLUDE THE POSSIBILITY OF BREAST CANCER. A CLINICALLY SUSPICIOUS PALPABLE LUMP SHOULD BE BIOPSIED. Dictated by: Severino Freeman M.D. on 02/19/2022 at 12:43 Approved by: Severino Freeman M.D. on 02/19/2022 at 12:46 Normal [facility] CBC AUTO DIFFon 02-13-2022 BASO # 0.1 103/ul Normal 0.0-0.1 [facility] Comment on above: Performed By: #### C BC #### [facility] [address] [address] [address] Sherry Quezada Basophils/100 WBC (Bld) 1.5 % Normal 0.2-2.0 [facility] Comment on above: Performed By: #### C BC #### [facility] [address] [place] [address] Dr. Sherry Quezada EO # 0.1 103/ul Normal 0.0-0.7 [facility] Comment on above: Performed By: #### C BC #### [facility] [address] [place] [address] Dr. Sherry Quezada Eosinophils/100 WBC (Bld) 1.0 % Normal 0.9-7.0 [facility] Comment on above: Performed By: #### C BC #### [facility] [address] [place] [address] Dr. Sherry Quezada Hematocrit (Bld) [Volume fraction] 35.3 % Critically low 36.0-48.0 [facility] Comment on above: Performed By: #### C BC #### [facility] [address] [place] [address] Dr. Sherry Quezada Hemoglobin (Bld) [Mass/Vol] 10.5 g/dL Critically low 12.0-16.0 [facility] Comment on above: Performed By: #### C BC #### [facility] [address] [place] [address] Dr. Sherry Quezada IG # 0.01 10e3/ul Normal 0.00-0.03 [facility] Comment on above: Performed By: #### C BC #### [facility] [address] [place] [address] Dr. Sherry Quezada IG % 0.2 % Normal 0.0-0.5 [facility] Comment on above: Performed By: #### C BC #### [facility] [address] [place] [address] Dr. Sherry Quezada LYMPH # 1.0 103/ul Critically low 1.2-3.8 [facility] Comment on above: Performed By: #### C BC #### [facility] [address] [place] [address] Dr. Sherry Quezada Lymphocytes/100 WBC (Bld) 16.7 % Critically low 20.5-60.0 [facility] Comment on above: Performed By: #### C BC #### [facility] [address] [place] [address] Dr. Sherry Quezada MANUAL DIFF REQ NO Normal [facility] Comment on above: Performed By: #### C BC #### [facility] [address] [place] [address] Dr. Sherry Quezada MCH (RBC) [Entitic mass] 27.8 pg Normal 26.7-34.0 [facility] Comment on above: Performed By: #### C BC #### [facility] [address] [place] [address] Dr. Sherry Quezada MCHC (RBC) [Mass/Vol] 29.7 g/dL Critically low 29.9-35.2 [facility] Comment on above: Result Comment: 1+ h ypochromasia Performed By: #### C BC #### [facility] [address] [place] [address] Dr. Sherry Quezada MCV (RBC) [Entitic vol] 93.4 fL Normal 81.0-99.0 [facility] Comment on above: Performed By: #### C BC #### [facility] [address] [place] [address] Dr. Sherry Quezada MONO # 0.4 103/ul Normal 0.3-0.8 [facility] Comment on above: Performed By: #### C BC #### [facility] [address] [place] [address] Dr. Sherry Quezada Monocytes/100 WBC (Bld) 6.7 % Normal 1.7-12.0 [facility] Comment on above: Performed By: #### C BC #### [facility] [address] [place] [address] Dr. Sherry Quezada NEUT # 4.5 103/ul Normal 1.4-6.5 [facility] Comment on above: Performed By: #### C BC #### [facility] [address] [place] [address] Dr. Sherry Quezada Neutrophils/100 WBC (Bld) 73.9 % Normal 43.0-75.0 [facility] Comment on above: Performed By: #### C BC #### [facility] [address] [place] [address] Dr. Sherry Quezada Platelet mean volume (Bld) [Entitic vol] 9.8 fL Normal 9.5-13.5 [facility] Comment on above: Performed By: #### C BC #### [facility] [address] [place] [address] Dr. Sherry Quezada PLT 305 103/ul Normal 150-450 [facility] Comment on above: Performed By: #### C BC #### [facility] [address] [place] [address] Dr. Sherry Quezada RBC 3.78 106/ul Critically low 4.20-5.40 [facility] Comment on above: Performed By: #### C BC #### [facility] [address] [place] [address] Dr. Sherry Quezada WBC 6.1 103/ul Normal 4.0-11.0 [facility] Comment on above: Performed By: #### C BC #### [facility] [address] [place] [address] Dr. Sherry Quezada FERRITINon 02-13-2022 Ferritin [Mass/Vol] 75.0 ng/mL Normal 8.0-252.0 [facility] Comment on above: Performed By: #### F ETIBC, FERR #### [facility] [address] [place] [address] Dr. Sherry Quezada IRON AND TIBCon 02-13-2022 % SATURATION 9.0 % Normal [facility] Comment on above: Performed By: #### T SH #### [facility] [address] [place] [address] Dr. Sherry Quezada Iron [Mass/Vol] 34.0 ug/dL Critically low 50.0-170.0 [facility] Comment on above: Performed By: #### T SH #### [facility] [address] [place] [address] Dr. Sherry Quezada TIBC DIRECT 376.0 ug/dL Normal 250.0-450.0 [facility] Comment on above: Performed By: #### T #### [facility] [address] [place] [address] Dr. Sherry Quezada PROF 14(COMP METB)on 022 Albumin [Mass/Vol] 3.3 g/dL Critically low 3.4-5.0 [facility] Comment on above: Performed By: #### C BC #### [facility] [address] [place] [address] Dr. Sherry Quezada Albumin/Globulin [Mass ratio] 0.9 {ratio} Normal [facility] Comment on above: Performed By: #### C BC #### [facility] [address] [place] [address] Dr. Sherry Quezada ALP [Catalytic activity/Vol] 92 U/L Normal 46-116 [facility] Comment on above: Performed By: #### C BC #### [facility] [address] [place] [address] Dr. Sherry Quezada ALT [Catalytic activity/Vol] 19 U/L Normal 14-59 [facility] Comment on above: Performed By: #### C BC #### [facility] [address] [place] [address] Dr. Sherry Quezada Anion gap [Moles/Vol] 14.2 mmol/L Normal [facility] Comment on above: Performed By: #### C BC #### [facility] [address] [place] [address] Dr. Sherry Quezada AST [Catalytic activity/Vol] 13 U/L Critically low 15-37 [facility] Comment on above: Performed By: #### C BC #### [facility] [address] [place] [address] Dr. Sherry Quezada Bilirubin [Mass/Vol] 0.6 mg/dL Normal 0.2-1.0 [facility] Comment on above: Performed By: #### C BC #### [facility] [address] [place] [address] Dr. Sherry Quezada Calcium [Mass/Vol] 8.8 mg/dL Normal 8.5-10.1 [facility] Comment on above: Performed By: #### C BC #### [facility] [address] [address] [address] Sherry Quezada Chloride [Moles/Vol] 105 mmol/L Normal 98-107 [facility] Comment on above: Performed By: #### C BC #### [facility] [address] [address] [address] Sherry Quezada CO2 [Moles/Vol] 24.5 mmol/L Normal 21.0-32.0 [facility] Comment on above: Performed By: #### C BC #### [facility] [address] [place] [address] Dr. Sherry Quezada Creatinine [Mass/Vol] 0.97 mg/dL Normal 0.55-1.02 [facility] Comment on above: Performed By: #### C BC #### [facility] [address] [place] [address] Dr. Sherry Quezada EGFR-AF [place] >60 Normal >=60 [facility] Comment on above: Performed By: #### C BC #### [facility] [address] [place] [address] Dr. Sherry Quezada EGFR-NON AF [place] 56 mL/min/1.73m2 Critically low >=60 [facility] Comment on above: Performed By: #### C BC #### [facility] [address] [place] [address] Dr. Sherry Quezada Globulin (S) [Mass/Vol] 3.6 g/dL Normal [facility] Comment on above: Performed By: #### C BC #### [facility] [address] [address] [address] Sherry Quezada Glucose [Mass/Vol] 110 mg/dL Critically high 74-106 [facility] Comment on above: Performed By: #### C BC #### [facility] [address] [place] [address] Dr. Sherry Quezada Potassium [Moles/Vol] 3.7 mmol/L Normal 3.5-5.1 [facility] Comment on above: Performed By: #### C BC #### [facility] [address] [place] [address] Dr. Sherry Quezada Protein [Mass/Vol] 6.9 g/dL Normal 6.4-8.2 [facility] Comment on above: Performed By: #### C BC #### [facility] [address] [place] [address] Dr. Sherry Quezada Sodium [Moles/Vol] 140 mmol/L Normal 136-145 [facility] Comment on above: Performed By: #### C BC #### [facility] [address] [place] [address] Dr. Sherry Quezada Urea nitrogen [Mass/Vol] 19.0 mg/dL Critically high 7.0-18.0 [facility] Comment on above: Performed By: #### C BC #### [facility] [address] [place] [address] Dr. Sherry Quezada Urea nitrogen/Creatinine [Mass ratio] 19.6 mg/mg Normal [facility] Comment on above: Performed By: #### C BC #### [facility] [address] [place] [address] Dr. Sherry Quezada CBC AUTO DIFFon 01-03-2022 BASO # 0.1 103/ul Normal 0.0-0.1 [facility] Comment on above: Performed By: #### C VDTBH #### [facility] [address] [place] [address] Dr. Sherry Quezada Basophils/100 WBC (Bld) 1.7 % Normal 0.2-2.0 [facility] Comment on above: Performed By: #### C VDTBH #### [facility] [address] [place] [address] Dr. Sherry Queazda EO # 0.1 103/ul Normal 0.0-0.7 [facility] Comment on above: Performed By: #### C VDTBH #### [facility] [address] [place] [address] Dr. Sherry Quezada Eosinophils/100 WBC (Bld) 2.1 % Normal 0.9-7.0 [facility] Comment on above: Performed By: #### C VDTBH #### [facility] [address] [place] [address] Dr. Sherry Quezada Erythrocyte distribution width (RBC) [Ratio] 18.9 % Critically high 11.0-15.0 [facility] Comment on above: Performed By: #### C VDTBH #### [facility] [address] [place] [address] Dr. Sherry Quezada Hematocrit (Bld) [Volume fraction] 32.7 % Critically low 36.0-48.0 [facility] Comment on above: Performed By: #### C VDTBH #### [facility] [address] [place] [address] Dr. Sherry Quezada Hemoglobin (Bld) [Mass/Vol] 9.1 g/dL Critically low 12.0-16.0 [facility] Comment on above: Performed By: #### C VDTBH #### [facility] [address] [place] [address] Dr. Sherry Quezada IG # 0.02 10e3/ul Normal 0.00-0.03 [facility] Comment on above: Performed By: #### C VDTBH #### [facility] [address] [place] [address] Dr. Sherry Quezada IG % 0.3 % Normal 0.0-0.5 [facility] Comment on above: Performed By: #### C VDTBH #### [facility] [address] [place] [address] Dr. Sherry Quezada LYMPH # 1.4 103/ul Normal 1.2-3.8 [facility] Comment on above: Performed By: #### C VDTBH #### [facility] [address] [place] [address] Dr. Sherry Quezada Lymphocytes/100 WBC (Bld) 23.8 % Normal 20.5-60.0 [facility] Comment on above: Performed By: #### C VDTBH #### [facility] [address] [place] [address] Dr. Sherry Quezada MANUAL DIFF REQ NO Normal [facility] Comment on above: Performed By: #### C VDTBH #### [facility] [address] [place] [address] Dr. Sherry Quezada MCH (RBC) [Entitic mass] 24.1 pg Critically low 26.7-34.0 [facility] Comment on above: Performed By: #### C VDTBH #### [facility] [address] [place] [address] Dr. Sherry Quezada MCHC (RBC) [Mass/Vol] 27.8 g/dL Critically low 29.9-35.2 [facility] Comment on above: Performed By: #### C VDTBH #### [facility] [address] [place] [address] Dr. Sherry Quezada MCV (RBC) [Entitic vol] 86.7 fL Normal 81.0-99.0 [facility] Comment on above: Performed By: #### C VDTBH #### [facility] [address] [place] [address] Dr. Sherry Quezada MONO # 0.5 103/ul Normal 0.3-0.8 [facility] Comment on above: Performed By: #### C VDTBH #### [facility] [address] [place] [address] Dr. Sheryr Quezada Monocytes/100 WBC (Bld) 8.7 % Normal 1.7-12.0 [facility] Comment on above: Performed By: #### C VDTBH #### [facility] [address] [place] [address] Dr. Sherry Quezada NEUT # 3.6 103/ul Normal 1.4-6.5 [facility] Comment on above: Performed By: #### C VDTBH #### [facility] [address] [place] [address] Dr. Sherry Quezada Neutrophils/100 WBC (Bld) 63.4 % Normal 43.0-75.0 [facility] Comment on above: Performed By: #### C VDTBH #### [facility] [address] [place], [place] [id number] Dr. Sherry Quezada Platelet mean volume (Bld) [Entitic vol] 10.3 fL Normal 9.5-13.5 [facility] Comment on above: Performed By: #### C VDTBH #### [facility] [address] [place] [address] Dr. Sherry Quezada PLT 288 103/ul Normal 150-450 [facility] Comment on above: Performed By: #### C VDTBH #### [facility] [address] [address] [address] Sherry Quezada RBC 3.77 106/ul Critically low 4.20-5.40 [facility] Comment on above: Performed By: #### C VDTBH #### [facility] [address] [place] [address] Dr. Sherry Quezada WBC 5.8 103/ul Normal 4.0-11.0 [facility] Comment on above: Performed By: #### C VDTBH #### [facility] [address] [place] [address] Dr. Sherry Quezada FERRITINon 01-03-2022 Ferritin [Mass/Vol] 23.0 ng/mL Normal 8.0-252.0 [facility] Comment on above: Performed By: #### C BC #### [facility] [address] [place] [address] Dr. Sherry Quezada IRON AND TIBCon 01-03-2022 % SATURATION 5.0 % Normal [facility] Comment on above: Performed By: #### C BC #### [facility] [address] [place] [address] Dr. Sherry Quezada Iron [Mass/Vol] 19.0 ug/dL Critically low 50.0-170.0 [facility] Comment on above: Performed By: #### C BC #### [facility] [address] [place] [address] Dr. Sherry uQezada TIBC DIRECT 377.0 ug/dL Normal 250.0-450.0 [facility] Comment on above: Performed By: #### C BC #### [facility] [address] [place] [address] Dr. Sherry Quezada CBC AUTO DIFFon 11-22-2021 BASO # 0.1 103/ul Normal 0.0-0.1 [facility] Comment on above: Performed By: #### C VDTBH #### [facility] [address] [place] [address] Dr. Sherry Quezada Basophils/100 WBC (Bld) 1.5 % Normal 0.2-2.0 [facility] Comment on above: Performed By: #### C VDTBH #### [facility] [facility] [address] [place] [address] Dr. Sherry Quezada EO # 0.1 103/ul Normal 0.0-0.7 [facility] Comment on above: Performed By: #### C VDTBH #### [facility] [address] [place] [address] Dr. Sherry Quezada Eosinophils/100 WBC (Bld) 2.3 % Normal 0.9-7.0 [facility] Comment on above: Performed By: #### C VDTBH #### [facility] [address] [place] [address] Dr. Sherry Quezada Erythrocyte distribution width (RBC) [Ratio] 15.9 % Critically high 11.0-15.0 [facility] Comment on above: Performed By: #### C VDTBH #### [facility] [address] [place] [address] Dr. Sherry Quezada Hematocrit (Bld) [Volume fraction] 31.9 % Critically low 36.0-48.0 [facility] Comment on above: Performed By: #### C VDTBH #### [facility] [address] [place] [address] Dr. Sherry Quezada Hemoglobin (Bld) [Mass/Vol] 9.4 g/dL Critically low 12.0-16.0 [facility] Comment on above: Performed By: #### C VDTBH #### [facility] [address] [place] [address] Dr. Sherry Quezada IG # 0.03 10e3/ul Normal 0.00-0.03 [facility] Comment on above: Performed By: #### C VDTBH #### [facility] [address] [address] [address] Sherry Quezada IG % 0.6 % Critically high 0.0-0.5 [facility] Comment on above: Performed By: #### C VDTBH #### [facility] [address] [address] [address] Sherry Quezada LYMPH # 0.8 103/ul Critically low 1.2-3.8 [facility] Comment on above: Performed By: #### C VDTBH #### [facility] [address] [address] [address] Sherry Quezada Lymphocytes/100 WBC (Bld) 16.1 % Critically low 20.5-60.0 [facility] Comment on above: Performed By: #### C VDTBH #### [facility] [address] [address] [address] Sherry Quezada MANUAL DIFF REQ NO Normal [facility] Comment on above: Performed By: #### C VDTBH #### [facility] [address] [address] [address] Sherry Quezada MCH (RBC) [Entitic mass] 26.9 pg Normal 26.7-34.0 [facility] Comment on above: Performed By: #### C VDTBH #### [facility] [address] [address] [address] Sherry Quezada MCHC (RBC) [Mass/Vol] 29.5 g/dL Critically low 29.9-35.2 [facility] Comment on above: Performed By: #### C VDTBH #### [facility] [address] [address] [address] Sherry Quezada MCV (RBC) [Entitic vol] 91.4 fL Normal 81.0-99.0 [facility] Comment on above: Performed By: #### C VDTBH #### [facility] [address] [address] [address] Sherry Quezada MONO # 0.3 103/ul Normal 0.3-0.8 [facility] Comment on above: Performed By: #### C VDTBH #### [facility] [address] [place] [address] Dr. Sherry Quezada Monocytes/100 WBC (Bld) 6.5 % Normal 1.7-12.0 [facility] Comment on above: Performed By: #### C VDTBH #### [facility] [address] [place] [address] Dr. Sherry Quezada NEUT # 3.5 103/ul Normal 1.4-6.5 [facility] Comment on above: Performed By: #### C VDTBH #### [facility] [address] [place] [address] Dr. Sherry Quezada Neutrophils/100 WBC (Bld) 73.0 % Normal 43.0-75.0 [facility] Comment on above: Performed By: #### C VDTBH #### [facility] [address] [place] [address] Dr. Sherry Quezada Platelet mean volume (Bld) [Entitic vol] 10.1 fL Normal 9.5-13.5 [facility] Comment on above: Performed By: #### C VDTBH #### [facility] [address] [place] [address] Dr. Sherry Quezada PLT 283 103/ul Normal 150-450 [facility] Comment on above: Performed By: #### C VDTBH #### [facility] [address] [place] [address] Dr. Sherry Quezada RBC 3.49 106/ul Critically low 4.20-5.40 [facility] Comment on above: Performed By: #### C VDTBH #### [facility] [address] [place] [address] Dr. Sherry Quezada WBC 4.8 103/ul Normal 4.0-11.0 [facility] Comment on above: Performed By: #### C VDTBH #### [facility] [address] [place] [address] Dr. Sherry Quezada FERRITINon 11-22-2021 Ferritin [Mass/Vol] 20.0 ng/mL Normal 11.1-264.0 [facility] Comment on above: Performed By: #### C BC #### [facility] [address] [place] [address] Dr. Sherry Quezada IRON AND TIBCon 11-22-2021 % SATURATION 3.9 % Normal [facility] Comment on above: Performed By: #### C BC #### [facility] [address] [place] [address] Dr. Sherry Quezada Iron [Mass/Vol] 15.0 ug/dL Critically low 37.0-170.0 [facility] Comment on above: Performed By: #### C BC #### [facility] [address] [place] [address] Dr. Sherry Quezada TIBC DIRECT 386.0 ug/dL Normal 261.0-497.0 [facility] Comment on above: Performed By: #### C BC #### [facility] [address] [place] [address] Dr. Sherry Quezada PROF 14(COMP METB)on 022 Albumin [Mass/Vol] 3.2 g/dL Critically low 3.4-5.0 [facility] Comment on above: Performed By: #### C BC #### [facility] [address] [place] [address] Dr. Sherry Quezada Albumin/Globulin [Mass ratio] 0.9 {ratio} Normal [facility] Comment on above: Performed By: #### C BC #### [facility] [address] [place] [address] Dr. Sherry Quezada ALP [Catalytic activity/Vol] 96 U/L Normal 46-116 [facility] Comment on above: Performed By: #### C BC #### [facility] [address] [place] [address] Dr. Sherry Quezada ALT [Catalytic activity/Vol] 19 U/L Normal 14-59 [facility] Comment on above: Performed By: #### C BC #### [facility] [address] [place] [address] Dr. Sherry Quezada Anion gap [Moles/Vol] 14.4 mmol/L Normal [facility] Comment on above: Performed By: #### C BC #### [facility] [address] [place] [address] Dr. Sherry Quezada AST [Catalytic activity/Vol] 14 U/L Critically low 15-37 [facility] Comment on above: Performed By: #### C BC #### [facility] [address] [address] [address] Sherry Quezada Bilirubin [Mass/Vol] 0.5 mg/dL Normal 0.2-1.3 [facility] Comment on above: Performed By: #### C BC #### [facility] [address] [place] [address] Dr. Sherry Quezada Calcium [Mass/Vol] 8.4 mg/dL Critically low 8.5-10.1 [facility] Comment on above: Performed By: #### C BC #### [facility] [address] [place] [address] Dr. Sherry Quezada Chloride [Moles/Vol] 106 mmol/L Normal 98-107 [facility] Comment on above: Performed By: #### C BC #### [facility] [address] [place] [address] Dr. Sherry Quezada CO2 [Moles/Vol] 25.1 mmol/L Normal 22.0-30.0 [facility] Comment on above: Performed By: #### C BC #### [facility] [address] [place] [address] Dr. Sherry Quezada Creatinine [Mass/Vol] 0.90 mg/dL Normal 0.52-1.04 [facility] Comment on above: Performed By: #### C BC #### [facility] [address] [place] [address] Dr. Sherry Quezada EGFR-AF [place] >60 Normal >=60 [facility] Comment on above: Performed By: #### C BC #### [facility] [address] [place] [address] Dr. Sherry Quezada EGFR-NON AF [place] >60 Normal >=60 [facility] Comment on above: Performed By: #### C BC #### [facility] [address] [address] [address] Sherry Quezada Globulin (S) [Mass/Vol] 3.6 g/dL Normal [facility] Comment on above: Performed By: #### C BC #### [facility] [address] [address] [address] Sherry Quezada Glucose [Mass/Vol] 117 mg/dL Critically high 74-106 [facility] Comment on above: Performed By: #### C BC #### [facility] [address] [address] [address] Sherry Quezada Potassium [Moles/Vol] 4.5 mmol/L Normal 3.4-5.0 [facility] Comment on above: Performed By: #### C BC #### [facility] [address] [place] [address] Dr. Sherry Quezada Protein [Mass/Vol] 6.8 g/dL Normal 6.1-8.2 [facility] Comment on above: Performed By: #### C BC #### [facility] [address] [place] [address] Dr. Sherry Quezada Sodium [Moles/Vol] 141 mmol/L Normal 137-145 [facility] Comment on above: Performed By: #### C BC #### [facility] [address] [place] [address] Dr. Sherry Quezada Urea nitrogen [Mass/Vol] 12.0 mg/dL Normal 7.0-18.0 [facility] Comment on above: Performed By: #### C BC #### [facility] [address] [address] [address] Sherry Quezada Urea nitrogen/Creatinine [Mass ratio] 13.3 mg/mg Normal [facility] Comment on above: Performed By: #### C BC #### [facility] [address] [place] [address] Dr. Sherry Quezada Basophils Auto (Bld) [#/Vol] on 01-19-2021 Basophils (Bld) [#/Vol] 0.1 10*3/uL 0.0-0.2 [facility] Basophils/100 WBC Auto (Bld) on 01-19-2021 Basophils/100 WBC (Bld) 2.1 % . [facility] Blood anisocytosis detection on 01-19-2021 Anisocytosis Ql (Bld) Marked Fir [facility] CT biopsyon 01-19-2021 Transferrin [Mass/Vol] 285 mg/dL 180-380 [facility] Eosin[facility] Auto (Bld) [#/Vo l]on 01-19-2021 Eosinophils (Bld) [#/Vol] 0.1 10*3/uL 0.0-0.45 [facility] Eosinophils/100 WBC Auto (Bl d)on 01-19-2021 Eosinophils/100 WBC (Bld) 2.2 % . [facility] Erythrocyte distribution wid th Auto (RBC) [Ratio]on 01-19-2021 Erythrocyte distribution width (RBC) [Ratio] 21.4 % 11.9-15.3 [facility] Ferritin [Mass/volume] in Se rum or Plasmaon 01-19-2021 Ferritin [Mass/Vol] 6.2 ng/mL 11-306.8 [facility] Hematocrit Auto (Bld) [Volum e fraction]on 01-19-2021 Hematocrit (Bld) [Volume fraction] 26.2 % 34.0-46.4 [facility] Hemoglobin [Mass/volume] in Bloodon 01-19-2021 Hemoglobin (Bld) [Mass/Vol] 7.7 g/dL 11.8-15.4 [facility] Hypochromia detectionon 01-03 Hypochromia Ql (Bld) Moderate [facility] Iron [Mass/volume] in Serum or Plasmaon 01-19-2021 Iron [Mass/Vol] 13 ug/dL 40-150 [facility] Iron binding capacity [Mass/ volume] in Serum or Plasmaon 01-19-2021 Iron binding capacity [Mass/Vol] 399 ug/dL 255-450 [facility] Iron saturation [Mass Fracti on] in Serum or Plasmaon 01-19-2021 Iron saturation [Mass fraction] 3.0 % 20-50 [facility] - Hematology and Cell countson 01-19-2021 Nucleated RBC/100 WBC (Bld) [Ratio] 0.3 % 0-0.5 [facility] Leukocytes [#/volume] in Blo od by Automated counton 01-19-2021 WBC (Bld) [#/Vol] 4.1 10*3/uL 4.5-11.0 [facility] Lymphocytes Auto (Bld) [#/Vo l]on 01-19-2021 Lymphocytes (Bld) [#/Vol] 1.0 10*3/uL 1.00-4.8 [facility] Lymphocytes/100 WBC Auto (Bl d)on 01-19-2021 Lymphocytes/100 WBC (Bld) 24.0 % . [facility] MCH Auto (RBC) [Entitic mass ]on 01-19-2021 MCH (RBC) [Entitic mass] 21.9 pg 24.7-34.3 [facility] MCHC Auto (RBC) [Mass/Vol]on 01-19-2021 MCHC (RBC) [Mass/Vol] 29.5 g/dL 32.0-35.0 [facility] MCV Auto (RBC) [Entitic vol] on 01-19-2021 MCV (RBC) [Entitic vol] 74.4 fL 80-100 [facility] Monocytes Auto (Bld) [#/Vol] on 01-19-2021 Monocytes (Bld) [#/Vol] 0.4 10*3/uL 0.0-0.8 [facility] Monocytes/100 WBC Auto (Bld) on 01-19-2021 Monocytes/100 WBC (Bld) 9.1 % . [facility] Neutrophils Auto (Bld) [#/Vo l]on 01-19-2021 Neutrophils (Bld) [#/Vol] 2.5 10*3/uL 1.8-7.7 [facility] Neutrophils/100 WBC Auto (Bl d)on 01-19-2021 Neutrophils/100 WBC (Bld) 62.6 % . [facility] No Panel Informationon 01-19 Microcytosis Moderate [facility] Platelet Estimate Normal Normal [facility] Platelet Morphology Comment Normal Normal [facility] Ovalocyte detectionon 2020 Ovalocytes LM Ql (Bld) Slight [facility] Platelet mean volume Auto (B ld) [Entitic vol]on 01-19-2021 Platelet mean volume (Bld) [Entitic vol] 8.3 fL 6.3-10.7 [facility] Platelets Auto (Bld) [#/Vol] on 01-19-2021 Platelets (Bld) [#/Vol] 341 10*3/uL 150-450 [facility] Polychromasia [Presence] in Blood by Light microscopyon 01-19-2021 Polychromasia LM Ql (Bld) Slight [facility] RBC Auto (Bld) [#/Vol]on RBC (Bld) [#/Vol] 3.52 10*6/uL 3.60-5.00 [facility] RBC morphologyon 01-19-2021 RBC morphology finding Nom (Bld) N/A [facility] Teardrop cell detectionon Dacrocytes LM Ql (Bld) Slight [facility] Bilirubin Test strip Ql (U)o n 01-11-2020 Bilirubin Ql (U) Negative Negative [facility] Color Auto (U)on 01-11-2020 Color (U) Yellow Yellow [facility] Ketones Auto test strip (U) [Mass/Vol]on 01-11-2020 Ketones (U) [Mass/Vol] Negative Negative [facility] Nitrite Test strip Ql (U)on 01-11-2020 Nitrite Ql (U) Negative Negative [facility] Protein Auto test strip (U) [Mass/Vol]on 01-11-2020 Protein (U) [Mass/Vol] Negative Negative [facility] Specific gravity Auto test s trip (U) [Rel density]on 01-11-2020 Specific gravity (U) [Rel density] 1.009 1.001-1.030 [facility] Urine clarity by refractomet ry automatedon 01-11-2020 Clarity Refractometry automated (U) Clear Clear [facility] Urine glucose measurement by automated test strip (mass/volume)on 01-11-2020 Glucose Auto test strip (U) [Mass/Vol] Normal mg/dL Normal [facility] Urine hemoglobin detection b y automated test stripon 01-11-2020 Hemoglobin Auto test strip Ql (U) Negative Negative [facility] Urine leukocyte esterase det ection by automated test stripon 01-11-2020 Leukocyte esterase Auto test strip Ql (U) Negative Negative [facility] Urobilinogen Auto test strip (U) [Mass/Vol]on 01-11-2020 Urobilinogen (U) [Mass/Vol] Normal mg/dL Normal [facility] pH Auto test strip (U)on pH (U) 6.5 [pH] 5.0-9.0 [facility] Albumin [Mass/volume] in Ser um or Plasmaon 01-01-2020 Albumin [Mass/Vol] 3.2 g/dL 3.2-5.5 [facility] Creatinine and Glomerular fi ltration rate.predicted panel (S/P/Bld)on 01-01-2020 Creatinine [Mass/Vol] 0.85 mg/dL 0.44-1.03 [facility] Estimated glomerular filtrat ion rate (GFR) non- Americanon 01-01-2020 GFR/1.73 sq M.predicted among non-blacks MDRD (S/P/Bld) [Vol rate/Area] mL/min/{1.73_m2} [facility] Folate [Mass/volume] in Seru m or Plasmaon 01-01-2020 Folate [Mass/Vol] 6.7 ng/mL >4.0 [facility] Comment on above: Folate reference ran ge: >5.9 ng/mlThe WHO technical consultation on folate and vitamin [id number] has determined that folate concentrations lessthan 4 ng/ml are considered deficient. Globulin Calc (S) [Mass/Vol] on 01-01-2020 Globulin (S) [Mass/Vol] 3.3 g/dL [facility] - Chemistry and C hemistry - challengeon 01-01-2020 Cobalamin (Vitamin B12) [Mass/Vol] 261 pg/mL 180-914 [facility] GFR/1.73 sq M.predicted MDRD (S/P/Bld) [Vol rate/Area] mL/min/{1.73_m2} [facility] Comment on above: GFR estimated refere nce range: According to KDOQI guidelines, <60 ml/min/1.73m2 is sufficient to diagnose a patient with chronic kidney disease. Laboratory - Hematology and Cell countson 01-01-2020 WBC (Bld) [#/Vol] 6.1 10*3/uL 4.5-11.0 [facility] No Panel Informationon 12-31 Pharmacy Creatinine Clearance (Chem [id number] [facility] Protein [Mass/volume] in Ser um or Plasmaon 01-01-2020 Protein [Mass/Vol] 6.5 g/dL 6.1-7.9 [facility] Serum or plasma alanine liz otransferase measurement without P-5'-P (enzymatic activion 01-01-2020 ALT No additional P-5'-P [Catalytic activity/Vol] 13 U/L 10-60 [facility] Serum or plasma albumin/glob ulin mass ratioon 01-01-2020 Albumin/Globulin [Mass ratio] 1.0 {ratio} [facility] Serum or plasma alkaline bria sphatase measurement (enzymatic activity/volume)on 01-01-2020 ALP [Catalytic activity/Vol] 93 U/L 32-92 [facility] Serum or plasma aspartate am inotransferase measurement (enzymatic activity/volume)on 01-01-2020 AST [Catalytic activity/Vol] 13 U/L 10-42 [facility] Serum or plasma calcium chris urement (mass/volume)on 01-01-2020 Calcium [Mass/Vol] 8.6 mg/dL 8.2-10.2 [facility] Serum or plasma chloride chiara surement (moles/volume)on 01-01-2020 Chloride [Moles/Vol] 107 mmol/L 95-114 [facility] Serum or plasma glucose chris urement (mass/volume)on 01-01-2020 Glucose [Mass/Vol] 108 mg/dL 70-100 [facility] Comment on above: ADA recommended refe rence rangeRandom Glucose Reference Range is dependent on time and content of last meal. Glucose of more than 200 mg/dL in a nonstressed, ambulatory subject supports the diagnosis of Diabetes Mellitus. Serum or plasma potassium me asurement (moles/volume)on 01-01-2020 Potassium [Moles/Vol] 4.4 mmol/L 3.5-5.1 [facility] Serum or plasma sodium measu rement (moles/volume)on 01-01-2020 Sodium [Moles/Vol] 137 mmol/L 136-146 [facility] Serum or plasma total biliru bin measurement (mass/volume)on 01-01-2020 Bilirubin [Mass/Vol] 0.8 mg/dL 0.3-1.2 [facility] Serum or plasma total carbon dioxide measurement (moles/volume)on 01-01-2020 CO2 [Moles/Vol] 20.8 mmol/L 22.0-30.0 [facility] Serum or plasma urea nitroge n measurement (mass/volume)on 01-01-2020 Urea nitrogen [Mass/Vol] 16 mg/dL 9- [facility] Vital Signs Date Time Vital Sign Value Performing Clinician Facility 08-14-2023 13:30-0500 Body height 168.91 cm [employer] Other [employer] [facility] Currently Other 08-14-2023 13:30-0500 Body mass index (BMI) [Ratio] 39.2 kg/m2 Shalom FabZat Other [email or web address] Other 08-14-2023 13:30-0500 Body weight 111.86 kg Shalom FabZat Other [email or web address] Other 08-14-2023 13:30-0500 Diastolic blood pressure 76 mm[Hg] Shalom FabZat Other [email or web address] Other 08-14-2023 13:30-0500 Respiratory rate 12 /min Shalom FabZat Other [email or web address] Other 08-14-2023 13:30-0500 Systolic blood pressure 116 mm[Hg] Shalom FabZat Other [email or web address] Other 08-13-2023 12:57-0500 Body height 167.64 cm DO Shalom Ball Work Phone: [facility] 08-13-2023 12:57-0500 Body weight 111.67 kg DO Shalom Ball Work Phone: [facility] 08-13-2023 12:57-0500 Diastolic blood pressure 77 mm[Hg] DO Shalom Ball Work Phone: [facility] 08-13-2023 12:57-0500 Heart rate 76 /min DO Shalom Ball Work Phone: [facility] 08-13-2023 12:57-0500 Respiratory rate 20 /min DO Shalom Ball Work Phone: [facility] 08-13-2023 12:57-0500 SaO2% (BldA) [Mass fraction] 99 % DO Shalom Ball Work Phone: [facility] 08-13-2023 12:57-0500 Systolic blood pressure 124 mm[Hg] DO Shalom Ball Work Phone: [facility] 08-06-2023 13:30-0500 Body height 168.91 cm Ricky Benson Other [email or web address] Other 08-06-2023 13:30-0500 Body mass index (BMI) [Ratio] 38.15 kg/m2 Ricky Benson Other [email or web address] Other 08-06-2023 13:30-0500 Body weight 108.86 kg Ricky Benson Other [email or web address] Other 08-06-2023 13:30-0500 Diastolic blood pressure 74 mm[Hg] Ricky Benson Other [email or web address] Other 08-06-2023 13:30-0500 Systolic blood pressure 137 mm[Hg] Ricky Benson Other [email or web address] Other 06-13-2023 13:00-0500 Body temperature 97.2 [degF] DO Shalom Ball Work Phone: [facility] 06-13-2023 13:00-0500 Body weight 111.58 kg DO Shalom Ball Work Phone: [facility] 06-13-2023 13:00-0500 Diastolic blood pressure 75 mm[Hg] DO Shalom Ball Work Phone: [facility] 06-13-2023 13:00-0500 Heart rate 88 /min DO Shalom Ball Work Phone: [facility] 06-13-2023 13:00-0500 Respiratory rate 16 /min DO Shalom Ball Work Phone: [facility] 06-13-2023 13:00-0500 SaO2% (BldA) [Mass fraction] 95 % DO Shalom Ball Work Phone: [facility] 06-13-2023 13:00-0500 Systolic blood pressure 121 mm[Hg] DO Shalom Ball Work Phone: [facility] 05-15-2023 14:32-0400 Diastolic blood pressure 60 mm[Hg] DO Shalom Ball Work Phone: [facility] 05-15-2023 14:32-0400 Heart rate 75 /min DO Shalom Ball Work Phone: [facility] 05-15-2023 14:32-0400 Respiratory rate 18 /min DO Shalom Ball Work Phone: [facility] 05-15-2023 14:32-0400 SaO2% (BldA) [Mass fraction] 97 % DO Shalom Ball Work Phone: [facility] 05-15-2023 14:32-0400 Systolic blood pressure 107 mm[Hg] DO Shalom Ball Work Phone: [facility] 05-15-2023 12:04-0400 Body height 168.91 cm DO Shalom Ball Work Phone: [facility] 05-15-2023 12:04-0400 Body temperature 98.1 [degF] DO Shalom Ball Work Phone: [facility] 05-15-2023 12:04-0400 Body weight 109.76 kg DO Shalom Ball Work Phone: [facility] 05-09-2023 13:17-0400 Body temperature 97.9 [degF] DO Shalom Ball Work Phone: [facility] 05-09-2023 13:17-0400 Diastolic blood pressure 65 mm[Hg] DO Shalom Ball Work Phone: [facility] 05-09-2023 13:17-0400 Heart rate 110 /min DO Shalom Ball Work Phone: [facility] [facility] 05-09-2023 13:17-0400 Respiratory rate 18 /min DO Shalom Ball Work Phone: [facility] 05-09-2023 13:17-0400 SaO2% (BldA) [Mass fraction] 99 % DO Shalom Ball Work Phone: [facility] 05-09-2023 13:17-0400 Systolic blood pressure 152 mm[Hg] DO Shalom Ball Work Phone: [facility] 05-07-2023 13:30-0400 Body height 168.91 cm Ricky Benson Other [email or web address] Other 05-07-2023 13:30-0400 Body mass index (BMI) [Ratio] 38.49 kg/m2 Ricky Benson Other [email or web address] Other 05-07-2023 13:30-0400 Body weight 109.82 kg Ricky Benson Other [email or web address] Other 05-07-2023 13:30-0400 Diastolic blood pressure 78 mm[Hg] Ricky Benson Other [facility] Currently Other 05-07-2023 13:30-0400 Systolic blood pressure 129 mm[Hg] Ricky Benson Other [facility] Currently Other 04-26-2023 13:02-0400 Body weight 110.67 kg DO Shalom Ball Work Phone: [facility] 03-12-2023 13:03-0400 Body temperature 97.8 [degF] DO Shalom Ball Work Phone: [facility] 03-12-2023 13:03-0400 Body weight 112.49 kg DO Shalom Ball Work Phone: [facility] 03-12-2023 13:03-0400 Diastolic blood pressure 53 mm[Hg] DO Shalom Ball Work Phone: [facility] 03-12-2023 13:03-0400 Heart rate 75 /min DO Shalom Ball Work Phone: [facility] 03-12-2023 13:03-0400 Respiratory rate 16 /min DO Shalom Ball Work Phone: [facility] 03-12-2023 13:03-0400 SaO2% (BldA) [Mass fraction] 100 % DO Shalom Ball Work Phone: [facility] 03-12-2023 13:03-0400 Systolic blood pressure 111 mm[Hg] DO Shalom Ball Work Phone: [facility] 01-08-2023 13:33-0400 Body temperature 97.8 [degF] DO Shalom Ball Work Phone: [facility] 01-08-2023 13:33-0400 Body weight 115.21 kg DO Shalom Ball Work Phone: [facility] 01-08-2023 13:33-0400 Diastolic blood pressure 64 mm[Hg] DO Shalom Ball Work Phone: [facility] 01-08-2023 13:33-0400 Heart rate 84 /min DO Shalom Ball Work Phone: [facility] 01-08-2023 13:33-0400 Respiratory rate 16 /min DO Shalom Ball Work Phone: [facility] 01-08-2023 13:33-0400 SaO2% (BldA) [Mass fraction] 98 % DO Shalom Ball Work Phone: [facility] 01-08-2023 13:33-0400 Systolic blood pressure 132 mm[Hg] DO Shalom Ball Work Phone: [facility] 11-19-2022 14:30-0400 Body height 168.91 cm Shalom Ball Other [facility] Currently Other 11-19-2022 14:30-0400 Body mass index (BMI) [Ratio] 39.58 kg/m2 Shalom Ball Other [facility] Currently Other 11-19-2022 14:30-0400 Body weight 112.95 kg Shalom Ball Other [email or web address] Other 11-19-2022 14:30-0400 Diastolic blood pressure 76 mm[Hg] Shalom Ball Other [email or web address] Other 11-19-2022 14:30-0400 Respiratory rate 16 /min Shalom Ball Other [email or web address] Other 11-19-2022 14:30-0400 Systolic blood pressure 122 mm[Hg] Shalom Ball Other [email or web address] Other 10-24-2022 15:45-0400 Body height 168.91 cm Shalom Ball Other [email or web address] Other 10-24-2022 15:45-0400 Body mass index (BMI) [Ratio] 39.77 kg/m2 Shalom Ball Other [email or web address] Other 10-24-2022 15:45-0400 Body weight 113.49 kg Shalom Ball Other [email or web address] Other 10-24-2022 15:45-0400 Diastolic blood pressure 81 mm[Hg] Shalom Ball Other [email or web address] Other 10-24-2022 15:45-0400 Respiratory rate 12 /min Shalom Ball Other [email or web address] Other 10-24-2022 15:45-0400 Systolic blood pressure 137 mm[Hg] Shalom Ball Other [email or web address] Other 10-10-2022 13:30-0500 Body height 168.91 cm Shalom Ball Other [email or web address] Other 10-10-2022 13:30-0500 Body mass index (BMI) [Ratio] 40.28 kg/m2 Shalom Ball Other [email or web address] Other 10-10-2022 13:30-0500 Body weight 114.94 kg Shalom Ball Other [email or web address] Other 10-10-2022 13:30-0500 Diastolic blood pressure 76 mm[Hg] Shalom Ball Other [email or web address] Other 10-10-2022 13:30-0500 Respiratory rate 12 /min Shalom Ball Other [email or web address] Other 10-10-2022 13:30-0500 Systolic blood pressure 122 mm[Hg] Shalom Ball Other [email or web address] Other 08-09-2022 13:08-0500 Body temperature 97.8 [degF] DO Shalom Ball Work Phone: [facility] 08-09-2022 13:08-0500 Body weight 113.8 kg DO Shalom Ball Work Phone: [facility] 08-09-2022 13:08-0500 Diastolic blood pressure 65 mm[Hg] DO Shalom Ball Work Phone: [facility] 08-09-2022 13:08-0500 Heart rate 101 /min DO Shalom Ball Work Phone: [facility] 08-09-2022 13:08-0500 Respiratory rate 18 /min DO Shalom Ball Work Phone: [facility] 08-09-2022 13:08-0500 SaO2% (BldA) [Mass fraction] 98 % DO Shalom Ball Work Phone: [facility] 08-09-2022 13:08-0500 Systolic blood pressure 107 mm[Hg] DO Shalom Ball Work Phone: [facility] 06-21-2022 16:30-0500 Body height 167.64 cm DO Shalom Ball Work Phone: [facility] Encounters Encounter Date Encounter Type Care Provider Facility Start: 08-27-2023 End: 08-27-2023 ambulatory Shalom Ball Other [facility] Currently Other Start: 08-27-2023 Nursing evaluation o f patient and report Shalom Ball [facility] Start: 08-14-2023 End: 08-14-2023 ambulatory Shalom Ball Other [facility] Currently Other Start: 08-14-2023 Office outpatient visit 25 minutes Shalom Ball [facility] Start: 08-13-2023 End: 08-13-2023 ambulatory Shalom Ball Facility:[facility] Start: 08-13-2023 End: 08-13-2023 Registered Recurring DO Shalom Ball Work Phone: [facility] Work Phone: Start: 08-06-2023 End: 08-06-2023 ambulatory Ricky Benson Other [place] [facility] Other Start: 08-06-2023 Office outpatient visit 15 minutes Ricky Benson [facility] Start: 07-26-2023 End: 07-26-2023 ambulatory Shalom Hayward Other [email or web address] Other Start: 07-26-2023 Nursing evaluation o f patient and report Shalom Hayward [facility] Start: 06-13-2023 End: 06-13-2023 ambulatory DO Shalom Hayward Work Phone: [facility] Work Phone: Start: 06-13-2023 End: 06-13-2023 Registered Recurring DO Shalom Hayward Work Phone: [facility] Work Phone: Start: 05-24-2023 End: 05-24-2023 ambulatory Shalom Hayward Other [email or web address] Other Start: 05-24-2023 Nursing evaluation o f patient and report Shalom Hayward [facility] Start: 05-15-2023 Telephone encounter Ricky Mason [facility] Start: 05-15-2023 End: 05-15-2023 ambulatory Shalom Hayward Facility:[facility] Start: 05-15-2023 End: 05-15-2023 Admission to same day surgery center DO Shalom Ball Work Phone: [facility] Work Phone: Start: 05-15-2023 End: 05-15-2023 ambulatory DO Shalom Hayward Work Phone: [facility] Work Phone: Start: 05-09-2023 Registered Recurring DO Mirna in Ball Work Phone: [facility] Work Phone: Start: 05-07-2023 End: 05-07-2023 ambulatory Ricky Benson Other [email or web address] Other Start: 05-07-2023 Office outpatient visit 25 minutes Ricky Benson [facility] Gastroenter[facility] Start: 04-24-2023 End: 04-24-2023 ambulatory Shalom Hayward Other [email or web address] Other Start: 04-24-2023 Nursing evaluation o f patient and report Shalom Hayward [facility] Start: 03-12-2023 End: 03-12-2023 ambulatory DO Shalom Ball Work Phone: [facility] Work Phone: Start: 03-12-2023 End: 03-12-2023 Registered Recurring DO Shalom Mainor Work Phone: [facility] Work Phone: Start: 02-21-2023 End: 02-21-2023 ambulatory Shalom Hayward Other [email or web address] Other Start: 02-21-2023 Telephone encounter Shalom Hayward [facility] Start: 02-14-2023 End: 02-14-2023 ambulatory Shalom Hayward Other [email or web address] Other Start: 02-14-2023 Nursing evaluation o f patient and report Shalom Hayward [facility] Start: 01-08-2023 End: 01-08-2023 ambulatory DO Shalom Ball Work Phone: [facility] Work Phone: Start: 01-08-2023 End: 01-08-2023 Registered Recurring DO Shalom Mainor Work Phone: [facility] Work Phone: Start: 12-11-2022 End: 12-11-2022 ambulatory Shalom Hayward Other [email or web address] Other Start: 12-11-2022 Nursing evaluation o f patient and report Shalom Hayward [facility] Start: 11-19-2022 End: 11-19-2022 ambulatory Shalom Hayward Other [email or web address] Other Start: 11-19-2022 Office outpatient visit 15 minutes Shalom Hayward [facility] Start: 11-05-2022 End: 11-06-2022 ambulatory [facility] Other Start: 11-05-2022 Nursing evaluation o f patient and report Shalom Hayward [facility] Start: 11-02-2022 End: 11-02-2022 ambulatory Shalom Hayward Other [email or web address] Other Start: 11-02-2022 Telephone encounter Shalom Hayward [facility] Start: 10-24-2022 End: 10-24-2022 ambulatory Shalom Hayward Other [email or web address] Other Start: 10-24-2022 Office outpatient visit 15 minutes Shalom Hayward [facility] Start: 10-10-2022 End: 10-10-2022 ambulatory Shalom Hayward Other [email or web address] Other Start: 10-10-2022 Transitional care manage srvc 14 day discharge Shalom Hayward [facility] Start: 10-02-2022 End: 10-02-2022 ambulatory Shalom Hayward Other [email or web address] Other Start: 10-02-2022 Nursing evaluation o f patient and report Shalom Hayward [facility] Start: 10-01-2022 End: 10-02-[address] PRASANNA CUMMINS . Facility: Start: 08-20-2022 End: 08-20-2022 ambulatory Shalom Hayward Other [email or web address] Other Start: 08-20-2022 Nursing evaluation o f patient and report Shalom Hayward [facility] Start: 08-09-2022 End: 08-09-2022 ambulatory DO Shalom Hayward Work Phone: [facility] Work Phone: Start: 08-09-2022 End: 08-09-2022 Registered Recurring DO Shalom Hayward Work Phone: [facility] Work Phone: Start: 08-06-2022 End: 08-07-[address] TAINA TOUSSAINT Facility:[facility] Start: 06-04-2022 End: 06-05-[address] SHALOM HAYWARD Facility:[facility] Start: 04-03-2022 End: 04-04-[address] SHALOM HAYWARD Facility:[facility] Start: 02-25-2022 Adult health examination Shalom Hayward Other [facility] Currently Other Start: 02-16-2022 End: 02-17-[address] SHALOM HAYWARD Facility:[facility] Start: 02-13-2022 End: 02-14-[address] DOCTOR NAIDU Facility:[facility] Start: 01-03-2022 End: 01-04-[address] TAINA TOUSSAINT Facility:[facility] Start: 11-24-[address] Taina Toussaint Fac ility:[id number] Start: 11-22-2021 End: 11-23-[address] SHALOM HAYWARD Facility:[facility] Procedures Date Procedure Procedure Detail Performing Clinician Start: 05-15-2023 Esophagogastroduodenoscopy DO Shalom mcgregor Work Phone: Start: 03-12-2017 Screening for malignant neoplasm of colon Ricky Benson Other Start: 02-02-2015 Screening for osteoporosis Ricky le Other Screening for malign ant neoplasm of breast Shalom Hayward Other Plan of Treatment Date Care Activity Detail Author Start: 07-01-2023 [facility] Start: 06-20-2023 End: 06-21-2023 [facility] Start: 05-15-2023 End: 05-15-2023 [facility] Start: 05-09-2023 [facility] Start: 05-02-2023 [facility] Start: 03-28-2023 [facility] Start: 03-20-2023 End: 03-21-2023 [facility] Start: 01-30-2023 [facility] Start: 01-24-2023 [facility] Start: 01-16-2023 [facility] Start: 11-22-2022 [facility] Start: 11-15-2022 [facility] Start: 08-20-2022 [facility] Start: 08-13-2022 [facility] Start: 06-21-2022 [facility] Start: 06-14-2022 [facility] Start: 05-01-2022 [facility] Start: 04-24-2022 [facility] Start: 01-23-2022 [facility] Start: 01-16-2022 [facility] Start: 12-29-2021 [facility] Start: 12-11-2021 [facility] Start: 01-30-2021 [facility] Start: 09-22-2020 [facility] Start: 07-15-2020 [facility] Basophils [#/volume] in Blood by Automated count [facility] Basophils/100 leukoc ytes in Blood by Automated count [facility] Comprehensive metabo lic 1999 panel - Serum or Plasma [facility] Comprehensive metabo lic 1999 panel - Serum or Plasma [facility] Comprehensive metabo lic 1999 panel - Serum or Plasma [facility] Comprehensive metabo lic 1999 panel - Serum or Plasma [facility] Comprehensive metabo lic 1999 panel - Serum or Plasma [facility] Comprehensive metabo lic 1999 panel - Serum or Plasma [facility] Comprehensive metabo lic 1999 panel - Serum or Plasma [facility] Comprehensive metabo lic 1999 panel - Serum or Plasma [facility] Comprehensive metabo lic 1999 panel - Serum or Plasma [facility] Comprehensive metabo lic 1999 panel - Serum or Plasma [facility] Eosinophils [#/volum e] in Blood [facility] Eosinophils/100 leuk ocytes in Blood by Automated count [facility] Erythrocyte distribu tion width [Ratio] by Automated count [facility] Erythrocytes [#/volu me] in Blood [facility] Ferritin [Mass/volum e] in Serum or Plasma [facility] Ferritin [Mass/volum e] in Serum or Plasma [facility] Ferritin [Mass/volum e] in Serum or Plasma [facility] Ferritin [Mass/volum e] in Serum or Plasma [facility] Ferritin [Mass/volum e] in Serum or Plasma [facility] Ferritin [Mass/volum e] in Serum or Plasma [facility] Ferritin [Mass/volum e] in Serum or Plasma [facility] Ferritin [Mass/volum e] in Serum or Plasma [facility] Ferritin [Mass/volum e] in Serum or Plasma [facility] Ferritin [Mass/volum e] in Serum or Plasma [facility] Hematocrit [Volume Fraction] of Blood [facility] Hemoglobin [Mass/vol ume] in Blood [facility] Leukocytes [#/volume ] corrected for nucleated erythrocytes in Blood by Automated coun [facility] Leukocytes [#/volume ] in Blood [facility] Lymphocytes [#/volum e] in Blood by Automated count [facility] Lymphocytes/100 leuk ocytes in Blood by Automated count [facility] MCH [Entitic mass] b y Automated count [facility] MCHC [Mass/volume] b y Automated count [facility] MCV [Entitic volume] by Automated count [facility] Monocytes [#/volume] in Blood by Automated count [facility] Monocytes/100 leukoc ytes in Blood by Automated count [facility] Neutrophils [#/volum e] in Blood by Automated count [facility] Neutrophils/100 leuk ocytes in Blood by Automated count [facility] Nucleated erythrocyt es [Presence] in Blood by Automated count [facility] Patient Education Gastric Ulcer (DC) Hiatal Hernia (DC) [facility] Work Phone: Platelet mean volume [Entitic volume] in Blood by Automated count [facility] Platelets [#/volume] [facility] Immunizations Immunization Date Immunization Notes Care Provider Rosy mei 05-31-2023 influenza, high dose seasonal, preservative-free Shalom Hayward Other [email or web address] Other 04-23-2022 influenza, high dose seasonal, preservative-free Shalom Hayward Other [email or web address] Other 04-21-2021 influenza virus vaccine, split virus (incl. purified surface antigen) Shalom Hayward Other [email or web address] Other 10-26-2020 COVID-19 mRNA-1273 (Moderna) DO Shalom Hayward Work Phone: [facility] 09-29-2020 COVID-19 mRNA-1273 (Moderna) DO Shalom Hayward Work Phone: [facility] 05-10-2020 influenza virus vaccine, split virus (incl. purified surface antigen) Shalom Hayward Other [email or web address] Other 05-28-2019 influenza virus vaccine, split virus (incl. purified surface antigen) Shalom Hayward Other [email or web address] Other 06-02-2018 influenza virus vaccine, split virus (incl. purified surface antigen) Shalom Hayward Other [email or web address] Other 06-06-2017 influenza virus vaccine, split virus (incl. purified surface antigen) Shalom Hayward Other [email or web address] Other 06-19-2016 influenza virus vaccine, split virus (incl. purified surface antigen) Shalom Mainor Other [email or web address] Other 06-07-2016 pneumococcal conjuga te vaccine, 13 valent Shalom Hayward Other [email or web address] Other 05-05-2015 influenza virus vaccine, split virus (incl. purified surface antigen) Shalom Hayward Other [email or web address] Other 04-27-2015 diphtheria, tetanus toxoids and acellular pertussis vaccine, unspecified formulation Shalom Hayward Other [email or web address] Other 02-02-2015 pneumococcal polysaccharide vaccine, 23 valent Shalom Hayward Other [email or web address] Other 04-16-2012 tetanus and diphther ia toxoids, adsorbed, preservative free, for adult use (5 Lf of tetanus toxoid and 2 Lf of diphtheria toxoid) Shalom Hayward Other [email or web address] Other 04-10-2000 diphtheria, tetanus toxoids and acellular pertussis vaccine, unspecified formulation Shalom Hayward Other [email or web address] Other Payers Date Payer Category Payer Self-pay [id number] 1960 Medicare [id number] 1960 Unknown [id number] 1950 Unknown [id number] .. [id number] 1950 Unknown [id number] 1950 Unknown [id number] 1949 Unknown [id number] .16.84 [id number] 1949 Unknown [id number] 1949 Unknown [id number] 2.16.84 [id number] 1949 Unknown [id number] 2.16.84 [id number] 1949 Unknown [id number] 2.16.84 [id number] 1949 Unknown [id number] 2.16.84 [id number] 1949 Unknown [id number] 2.16.84 [id number] 1949 Unknown [id number] 2.16.84 [id number] 1949 Unknown [id number] 2.16.84 [id number] Unknown [id number] 2.16.8 [id number] Unknown [id number] 2.16.8 [id number] Social History Date Type Detail Facility Start: 08-09-2022 End: 03-12-2023 Tobacco smoking status NJIS Ex-smoker (finding) [facility] Start: 1950 Sex Assigned At Female F [facility] Sex Assigned At Sex Assigned At [facility] Other Start: 05-15-2023 End: 08-12-2023 Tobacco smoking status [facility] Never smoked tobacco (finding) [facility] Medical Equipment Procedure Code Equipment Code Equipment Origin al Text Equipment Identifier Dates Capsule endoscopy, for patency of lumen evaluation Video capsule endoscopy system [id number] Start: 01-07-2020 Capsule endoscopy, for patency of lumen evaluation Video capsule endoscopy system ()[id number] [facility] Start: 06-22-2021 Goals Date Patient Goal Desired Activity /State Clinical Notes 01-01-2020 to 08-27-2023 Note Date & Type Note Facility 08-27-2023 Evaluation note Encounter Date Diagnosis Assessment Notes Aug, Pernicious anemia (ICD-10 - D51.0) [email or web address] Other 01-10-2024 Evaluation note* Encounter Date Diagnosis Assessment Notes Treatment Notes Treatment Clinical Notes Aug, Primary hypertension (ICD-10 - I10) This patient is instructed to consume a healthy, low-fat, low-salt diet. They are also encouraged to continue exercise to achieve/maintain a normal BMI. Aug, IFG (impaired fastin g glucose) (ICD-10 - R73.01) Healthy diet and exercise stressed. Weight loss to combat insulin resistance. A1C at wellness examination Aug, Gastroesophageal reflux disease with esophagitis without hemorrhage (ICD-10 - K21.00) Avoid lying flat after eating. Avoid eating 2 hours prior to bedtime. Smaller, frequent meals may be better tolerated.Weight loss if overweight.PPI with any heartburn.Monitor for dysphagia. Aug, Chronic Freedom ulce r (ICD-10 - K25.7) No s/s bleeding. Continue PPI, Clonidine f/u GI Aug, YARI (generalized anxiety disorder) (ICD-10 - F41.1) Improved w/ medical treatment Continue healthy diet and keep active. Avoid abrupt d/c of medications. f/u Psych Aug, PA (pernicious anemi a) (ICD-10 - D51.0) Hgb normal Continue B12 supplements Serial H/H w/ Hematology Aug, Peripheral polyneuropathy (ICD-10 - G62.9) Improved, symptoms tolerable. Continue Fe and B12 supplements. 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 Aug, Mild episode of recurrent major depressive disorder (ICD-10 - F33.0) Stable mood w/ treatment. She is instructed to continue medical therapy w/o interruption f/u Psych Avoid abrupt d/c of medications Aug, Macromastia (ICD-10 - N62) [email or web address] Other 01-02-2024 Evaluation note* Encounter Date Diagnosis Assessment Notes Treatment Notes Treatment Clinical Notes Aug, Large hiatal hernia (ICD-10 - K44.9) Aug, Freedom ulcer (ICD-10 - K25.9) Continue pantoprazole 40 mg once a day Rto 4 months Aug, Schatzki's ring (ICD-10 - Q39.4) Aug, Iron deficiency anemia (ICD-10 - D50.9) Patient is to have a CBC done by Dr. Toussaint and will have her forward the results. Aug, Abdominal pain (ICD-10 - R10.9) [email or web address] Other 11-09-2023 Progress note Author Taina Toussaint [facility] June 13, 2023 3:08pm Note Date/Time June 13, 2023 1 :12pm [facility] [place] [address] Hem/Onc Follow Up Note - OP Signed Patient: Janine Conde MR#: [id number] : 1950 Acct:[id number] Age/Sex: 72 / F Type: REG RCR Copies to: DO Ricky Jordan MD~ Subjective Date/Time of Service: Date of Service: 06/13/2023 Time of Service: 13:10 Chief Complaint: Patient is here today for a 2 month follow up visit and go overoutside labs for iron deficiency anemia HPI: 06/13/2023: Janine is here for 6 week followup after repeat Injectafer after last visit (05/02 and 05/09) due to labs 04/24/2023 showing persistent anemia with hemoglobin 8.4 iron saturation 6.3% and ferritin 94. She was referred back to Dr. Elias of gastroenterology who performed EGD on 05/15/2023. She was found to have a Schatzki's ring that was fractured with a pediatric colonoscope with further evaluation showing a large hiatal hernia and Freedom ulcers. Otherwise normal small bowel to the mid jejunum. He recommended starting pantoprazole 40 mg twice daily and low-dose clonidine to stop several GI losses. Her most recent laboratories 06/11/2023 show hemoglobin is up to 12.1 with iron saturation 13.9% and ferritin 121. She noted initial improvement in energy but notes that she feels some generalized weakness over the last week. She noted about 2 weeks ago that she had dark stools for 2 days that then resolved. Due to her persistent low iron saturation and symptomatic weakness, despite improvement of her hemoglobin we will give her 2 further doses of Injectafer 750mg IV and recheck her CBC and iron saturation with ferritin in 2 months. If shehas normal iron studies at that time and no new symptoms we may extend her follow-up to every 3 months. If she has recurrent iron deficiency I may refer her back to gastroenterology for capsule endoscopy for further work-up. This ross moderate complexity 30-minute follow-up to review gastroenterology evaluation and outside labs. 04/26/2023: Janine is here for followup after most recent Injectafer infusions. She has received Feraheme x 2 in Aug 2022, Injectafer in November/January/March 2023. Followup labs at [facility] show hemoglobin 8.4 with iron saturation 6.3% and ferritin 94. She has persistent fatigue and dyspnea on exertion, therefore we are coordinating another 2 weekly doses of Injectafer andreferring her back to gastroenterology for repeat EGD/colonoscopy and capsular endoscopy. She will f/u with me in 6 weeks with repeat labs and results of GI workup (possible push endoscopy with intervention if AVMs found). Moderate complexity 30 minute followup. 03/12/23 she continues to feel pretty well, denies significant fatigue recently returned from vacation and did not have issues with energy while there,stayed pretty active she denies shortness of breath, chest pain, black or tarry stool labs with persistent low iron- saturation 6.9%, ferritin 76 and hgb 10.3 01/08/23 she feels much improved since her last doses of Injectafer energy is good, she denies shortness of breath, chest pain or other new complaints this week has noted a few episodes of dark stool labs improving but not normal. hgb 10.9, iron sat 12% and ferritin 109 11/07/2022: Janine presents for follow-up for her iron deficiency anemia. She continues with increased fatigue and dyspnea on exertion. She denies black, tarry stool or other s/s of bleeding. No other new symptoms. She notes she was admitted at [facility] end of September for anemia and received a couple of units of blood while there. No active bleeding found at that time and iron studies WNL during admission. Iron studies currently low, will plan repletion with IV iron and will follow-up with labs in 2 months, sooner if needed. 08/09/2022: Janine is here for interval 2 month follow up to review most recent laboratories. Clinically, she is fatigued, chronically. Denies any significant shortness of breath, palpitations, chest pain, melena, hematochezia or BRBPR. Last iron infusion with Feraheme was 2 months ago. As noted previously, she has declined further Octreotide therapy due to intolerable side effects related to first injection given x 1 on 11/30/2021. Most recent laboratories from [facility] dated 08/06/2022 reveal hemoglobin - 10.7; ferritin- 34 and iron saturation - 5.9%. 06/06/2022: Here to review iron studies after her most recent Feraheme infusions in April 2022. I reviewed all of her iron infusions over the last 2 years. She previously received Injectafer 750 mg IV for total of 8 infusions during 2019. During 2020 she received Feraheme twice in January. She had capsule endoscopy with Dr. Elias in July 2021 which confirmed evidence of angiodysplasia. Also on EGD and colonoscopy May 2021 she had a large hiatalhernia with Schatzki's ring and diverticulosis. Recommendation was for trial ofoctreotide LAR in late November 2021 which she tolerated poorly. Since then she received iron infusions 6 times over the last 6 months. She has not had any melena or bright red blood per rectum. She continues to experience fatigue withactivities and her most recent labs at [facility] 06/04/2022 showed hemoglobin 11.7 with serum iron low 42.8, iron saturation 13.4, and ferritin 48. We are preparing iron infusion today with Feraheme 510 mg IV x2 weekly infusions. Since she has required about 3 infusions/year with the last infusiononly 2 months ago, we will repeat her CBC and iron studies in August 2022 although she may return sooner if she has symptomatic anemia. She may follow- upwith Dr. Elias as needed. 02/15/2022: Patient is here for 1 month follow up; s/p repeat Feraheme infusion ~4 weeks ago. On 01/03/2022 her hemoglobin was noted to be 9.1; ferritin 23.0; iron saturation 5%. She was subsequently given 01/16/2022 and 01/23/2022. Repeatlabs indicate modest improvement of hemoglobin from 9.1-10.5; ferritin now 75.0;iron saturation improved to 9%. As noted below, patient has had multiple EGD/colonoscopy procedures and wireless capsule endoscopy x2; with last WCE in July 2021. 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 She did trial a one-time dose of octreotide LAR 20 mg IM on 11/30/2021. She reported very poor tolerance to the injection citing significant abdominal pain, cramping, nausea and vomiting. Clinically, she is doing well and feeling well, in regards to energy levels and fatigue. Will continue close follow up. 01/05/2022: Janine presents for follow-up of her iron deficiency anemia. She continues to be fatigued and gets dyspneic easily on exertion. She denies this at rest, though. She denies dark stool, bright red blood per rectum, hematuria, coffee ground emesis or other sites of bleeding. She denies fevers, chills, sweats, weight loss, abdominal pain, diarrhea or constipation. She did have quite a bit of nausea, vomiting, and abdominal/back cramping and pain after her first dose of octreotide last month. She refuses any additional doses, even withpremedications offered. She only received 1 dose of Feraheme at that time. On review, her labs from [facility] reveal hgb 9.0 and iron saturation 5%. We will plan for repeat Feraheme x 2 doses and will follow-up in 6 weeks again for repeat labs 11/24/2021: She is here for follow-up today and transfer of followup (previouslyfollowed by Dr. Anam Abarca). She reports improved energy since most recent RBC transfusion and iron infusions at [place] but persistent fatigue. She still has episodes of light-headedness. She denies vertiginous symptoms and is okay driving. She denies fevers, chills, night sweats or unexplained weight loss. She admits to small amounts of blood in the stool but has a history of hemorrhoids. She has been on chronic PPI therapy for many years and takes it daily. She is on B12 supplementation. Her CBC from 10/2021 revealed a HGB of 7.7 g/dL, MCV 74, RDW 21%. No iron panel was reported. Labs from [place] 11/22/2021 with improved hemoglobin to 9.4 but still low iron saturation 3.9% and ferritin 20. 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 Followup with [facility] in 6 weeks to review iron studies after Feraheme 510mg x 2 doses and Octreotide LAR 20mg IM monthly. 10/24/2021 (YAZAN Chan) her energy is much improved after receiving Feraheme in September at [facility] she has her labs done at [facility] as well, none done this month for review she continues to note melena on occasion, not every day last colonoscopy and EGD done 05/15/21 revealing large hiatal hernia, hemorrhoids and Schatzki's Ring. She had a capsule endoscopy done 07/05/21 that showed angioectasia small bowel she denies any recent bleeding from hemorrhoids, these are well controlled she feels well overall without complaints beyond the continued melena 04/28/21 (Dr. Anam Abarca) feels ok today, energy stable denies any bleeding, denies ice cravings continues to take PPI daily, hemorrhoids under control denies any lightheadedness iron continues to be low, so will recommend updated scopes - Summary of Therapies Summary of Therapies: IV Iron with Injectafer, 12/2019, 02/2020, 06/2020, 09/2020, 09/2021--1 U RBC transfused and Feraheme 11/2021--ordered Feraheme and Octreotide LAR. Only received 1 dose of Feraheme. She had nausea, vomiting, cramping and abdominal + back pain with the octreotide, declines further therapy. Feraheme 510 mg IV x 2 doses: 01/16/2022 and 01/23/2022 04/24/2022 and 05/01/2022 06/14/2022 and 06/21/2022 2 doses 08/09/2022 Injectafer 750mg IV x 2: November/January/March/April/May/June 2023 -- 05/15/2023: EGD with Schatzki's ring, large hiatal hernia, Freedom ulcers. Added pantoprazole 40 mg twice daily with clonidine 0.1 mg twice daily ROS Details: All systems reviewed & no additional complaints except as documented Subjective/ROS - Narrative: CONSTITUTIONAL: Fevers [-], Chills [-], Night sweats [-], Weight Loss [-], Hot Flashes [-], Fatigue/weakness [+] recurrent after iron infusions last several months HEENT: Changes in Vision [-], Changes in Hearing [-], Eye Pain [-], Ear Pain [- ], Mouth Sores [-], Change in Taste [-], Sore Throat [-], Hoarseness [-] CARDIOVASCULAR: Palpitations [-], Chest Pain [-], Chest Tightness [-], Swellingin Extremities [-] RESPIRATORY: Cough [-], Shortness of Breath [-], Dyspnea on Exertion [+], Wheezing [-] GASTROINTESTINAL: Abdominal Pain [-], Diarrhea [-], Constipation [-], Nausea [- ], Vomiting [-], Early Satiety [-], No visible Hematochezia [-], Melena [+] 2 days last month now resolved. Improved dysphagia since dilation of Schatzki's ring. LYMPHATIC: Swollen Glands [-], Enlarged Lymph Nodes [-] INTEGUMENTARY: Rashes [-], Nodules [-], Ulcers [-], Blisters [-], Pigmentation Changes [-] HEMATOLOGIC: Easy Bruising [-], Gum Bleeding [-], Epistaxis [-], Prolonged Bleeding [-], Heavy Menses [-] GENITOURINARY: Hematuria [-], Difficulty Voiding [-], Pain with Voiding [-], Frequent Voiding [-] NEUROLOGIC: Numbness [-], Tingling [-], Altered Gait [-], Muscle Weakness [-], Lightheadedness/generalized weakness [persists after recent transfusions/iron] MUSCULOSKELETAL: Muscle Pain [-], Bone Pain [-], Joint Pain [-] PSYCHIATRIC: Depressed Mood [-], Anxiety [-], Stressed [-] [facility] - History Attestation statement: The following information was validated with the patient. Source: Old Records Reviewed - Medical History Medical History: Medical History (Last Reviewed 06/13/23 @ 15:00 by Taina Toussaint MD) Anemia Anxiety Depression GERD (gastroesophageal reflux disease) - Surgical History Surgical History: Surgical History (Last Reviewed 06/13/23 @ 15:00 by Taina Toussaint MD) H/O: hysterectomy History of bunionectomy Hx of cholecystectomy - Family History Family History: Family History (Last Reviewed 06/13/23 @ 15:00 by Taina Toussaint MD) Son No problems noted. Mother Pancreatitis Diabetes Father Emphysema of lung - Social History Smoking Status: Never smoker Tobacco Type: cigarettes Substance Use Type: None Home Medications & Allergies Allergies No Known Allergies Allergy (Verified 06/13/23 12:58) Home Medications trazodone 100 mg tablet 1 tab PO HS 06/20/19 [History Confirmed 06/13/23] venlafaxine 150 mg capsule,extended release 24 hr 150 mg PO DAILY 06/20/19 [History Confirmed 06/13/23] clonazepam 0.5 mg tablet 0.5 mg PO BID #0 tabs 06/23/19 [Rx Confirmed 06/13/23] buspirone 5 mg tablet 5 mg PO BID 06/22/21 [History Confirmed 06/13/23] clonidine HCl 0.1 mg tablet 0.1 mg PO BID 05/15/23 [History Confirmed 06/13/23] pantoprazole 40 mg tablet,delayed release 40 mg PO BID 6 months #60 tabs 05/15/23 [Rx Confirmed 06/13/23] Objective - Height/Weight Height/Weight: Height 5 ft 6 in Weight 111.584 kg BSA for Today's Weight 2.38 - Vital Signs Vital Signs: 06/13/23 13:00 Temperature 97.2 F L Pulse Rate [Left Brachial] 88 Respiratory Rate 16 Blood Pressure [Left Arm] 121/75 02 Sat by Pulse Oximetry 95 Oxygen Delivery Method Room Air - Pain Bilateral Leg Pain Intensity: 0 Physical Exam Narrative: ECOG PS: 2 due to fatigue General : patient is alert and oriented to person place and time, no acute distress. HEENT: no scleral icterus, no oral lesions Neck: no JVD or thyromegaly. Lymph: no cervical, supraclavicular, axillary adenopathy. Heart: regular rate and rhythm no murmurs rubs or gallops. Abdomen: soft nontender nondistended, no hepatosplenomegaly. Lungs: clear to auscultation bilaterally. No wheezes, rales, rhonchi. Extremities: no clubbing cyanosis. No edema - ECOG Performance Status ECOG Score: 2 - Fatigue and generalized weakness Results - Labs Labs: Diagram of Most Recent CBC and CMP 01/19/21 09:05 01/01/20 11:27 Outside Labs: [facility] outside labs 04/24/2023: Hemoglobin 8.4 iron saturation 6.3% and ferritin 94. 06/11/2023: Hemoglobin is up to 12.1 with iron saturation 13.9% and ferritin 121. - Impressions No new imaging for review - Other Results Results/Comments: 05/15/2023 Ricky Benson MD (EGD)Esophagogastroduodenoscopy Additional procedure: EGD and enteroscopy Biopsy Taken: No Indication: Iron deficiency anemia Preoperative Diagnosis:: Iron deficiency anemia Postoperative diagnosis:: Large hiatal hernia Freedom ulcers Schatzki ring Normal small bowel Medications used:: Propofol as per anesthesia Procedure description:: O2 oximetry and hemodynamic monitoring were performed pre-, during and post procedure. The patient was identified, H&P completed, patient given full explanation of the procedure as well as associated risks and written consent wasobtained prior to procedure. Patient expressed complete understanding of the procedure as well as alternatives to the procedure and anesthesia and agreed to proceed with the procedure as indicated. Patient was immediately reassessed prior to IV sedation. With the patient in the left lateral decubitus position the adult Olympus pediatric video colonoscope was inserted perorally and advanced through the esophagus and into the stomach and into the duodenum and to approximately the mid jejunum.. Esophageal mucosa appeared entirely normal. A large hiatal hernia was seen. There was evidence of Freedom ulcers. A Schatzki ring was seen and there is a tight ring was fractured with a pediatric colonoscope was passed through into the stomach. There was no evidence of reflux esophagitis. There was no evidence of Ortiz's esophagus. The Z line was regular. The scope was passed into the stomach and the stomach carefully examined. The mucosa throughout the stomach appeared entirely normal without evidence of inflammation, ulcerations, friability or polyp formation. The scope was retroflexed with no additional findings. Scope was passed through the pylorus and into the duodenum. The duodenal bulb and post bulbar duodenum and the descending portion of the duodenum and small bowel to approximately the mid jejunum appeared entirely normal. The scope was withdrawn and the procedure terminated. Following a period of recovery, patient was given full explanation of the procedure. Patient tolerated procedure well and will be discharged home in satisfactory, stable and ambulatory condition. Findings: Large hiatal hernia Freedom ulcers Schatzki ring Normal small bowel to the mid jejunum Recommendations:: Begin patient on pantoprazole 40 mg p.o. before breakfast and supper. I suspectat least some of her iron deficiency anemia is from slow blood loss from her Freedom ulcers. Pantoprazole should help alleviate the situation. We also started a low- dose clonidine to see if we can stop any subtle GI blood loss. Wewill recheck CBC and see back in the office in 6 to 8 weeks Assessment and Plan (1) Iron deficiency anemia Qualifiers: Iron deficiency anemia type: other iron deficiency Qualified Code(s): D50.8- Other iron deficiency anemias 72 year old female with chronic iron deficiency most likely secondary to bleeding from AVMs. She has required recurrent IV iron infusions throughout the last 1.5 years. Repeat colonoscopy and EGD on 05/15/2021 reveal a large hiatal hernia, hemorrhoids, and Schatzki's Ring Capsule endoscopy on 07/05/2021 showed angioectasia of the small bowel 11/24/2021: Improved hemoglobin to 9.4 but still persistent fatigue and iron saturation still 3.9% I recommended repeat infusion of Injectafer 510mg x 2 doses. --Added Octreotide LAR 20mg IM monthly to prevent recurrent bleeding from AVMs given persistent anemia--she is not on any anticoagulant or antiplatelet therapy. We will have her follow-up in 6 weeks with [facility] and will plan for repeatiron studies and a cbc at that time. She is in agreement with this plan and had no further questions. Moderate complexity for transfer of care and adding Octreotide LAR with iron infusions. 01/05/2022: She continues with fatigue and persistent low counts despite 1 dose ofFeraheme and Octreotide in November. She denies any bleeding anywhere, no melena, and has had no medication changes since her last visit. She had a reaction to the Octreotide and does not want any additional doses (abdominal pain and nausea). We will plan to replete with additional 2 doses of Feraheme and will follow-up with cbc, iron studies and ferritin in 6 weeks. She is in agreement with this plan and has no additional questions. 11/14/2022: She continues with fatigue and dyspnea on exertion. In September was admitted for 2-3 days with anemia at [facility] and received transfusional support. Current labs reveal low iron with saturation 5.2%, ferritin 10 and her hemoglobin is 9.3. We will plan to replete with IV Injectafer (switch from previous Feraheme) and will repeat cbc, cmp and iron studies in 2 months with follow-up. She is in agreement with this plan and has no questions. 03/12/2023: She continues to feel pretty well overall, but her iron and hemoglobinremain low. She is not having any black, tarry stools or other s/s of bleeding. We discussed her persistent CONSUELO, and reviewed her previous Octreotide issues. She notes she had nausea and vomiting a few hours after she received the Octreotide previously and did not want to try that medication again. She is opento trying lanreotide if insurance approves, and if we can premedicate her with this. We will discuss with Dr. Toussaint and follow-up with the patient. She will receive additional IV Injectafer x 2 and will repeat labs in 1month with follow-up. We will also refer her back to Dr. Benson as she is agreeable to this now. 04/26/2023: Persistent anemia and low iron sat despite 5 separate round of parenteral iron (Feraheme, then Injectafer) since August. She has not yet beenseen by GI. I recommended repeat EGD/colonoscopy, possible push enteroscopy forinterventions on any visible AVMs. If they agree, we will give a trial of Lanreotide next month. Moderate complexity 30 minute followup. 06/13/2023: Now following sixth round of parenteral iron in early May, hemoglobin is up to 12 but persistent low iron saturation of 13. She did note some dark stools for 2 days and has recurrent weakness. Given her increased bleeding propensity and persistent low iron saturation, we will set up 2 more infusions of Injectafer 750 mg twice daily. We reviewed her EGD results showingfracture of Schatzki's ring with improved dysphagia, hiatal hernia with Freedom ulcers. She is compliant with pantoprazole 40 mg twice daily that was started by Dr. Elias along with clonidine 0.1 mg daily. Blood pressure and heart rate are stable but she does have some generalized weakness today. We will defer her next follow-up with iron studies to 8 weeks following her Injectafer infusions, sooner if new symptoms arise. If she has stable hemoglobin and iron studies at her 8-week follow-up, we may extend her follow-up surveillance labs every 3 months. Moderate complexity 30-minute follow-up. (2) Chronic Freedom ulcer Reviewed results of EGD from 05/15/2023 showing Freedom ulcers with a large hiatal hernia. Dr. Elias started pantoprazole 40 mg twice daily with clonidine 0.1 mg twice daily. Continue follow-up with gastroenterology. If recurrent GI bleeding noted she may require tertiary referral for interventions. (3) Angiodysplasia of small intestine Persistent iron deficiency anemia despite multiple iron infusions over the past 3 years. Attempted Octreotide LAR 20mg IM monthly to prevent recurrent bleedingfrom AVMs documented on capsular endoscopy in 07/2021. 11/30/2021: Given first Octreotide 20 mg LAR IM injection with multiple GI side effects, abdominal pain, nausea, cramping --declines further therapy. She currently has no s/s of bleeding. Given her known AVM in the small intestine she will continue to require frequentiron infusions. She is not taking any anti-inflammatories and is not on any blood thinners. 11/07/2022: She continues to decline Octreotide therapy 03/12/2023: She will be referred back to Dr. Benson for re-evaluation as she continues to require regular iron infusions. We discussed her previous reaction to Octreotide including nausea and vomiting once she got home. She is open to trying Lanreotide with premedication if insurance approves. We will consider this 04/26/2023: Still pending GI referral, potential interventions for AVM if indicated. 06/13/2023: Patient was not placed on lanreotide, but is currently on twice dailypantoprazole with twice daily clonidine as noted above. Mild improvement of hemoglobin to 12 and we are giving 1 further round of Injectafer 750 mg IV x2 due to persistent low iron saturation of 13%. Reassess in 8 weeks. (4) B12 deficiency She is getting B12 injection monthly with PCP. (5) Hiatal hernia Large hiatal hernia on EGD 05/15/2023. Placed on pantoprazole 40 mg twice dailysince that time. - Time with Patient Time Spent with Patient (Follow Up Visit): 35 minutes - Moderate complexity f/u for persistent iron deficiency, 7th round of iron infusions since August, review EGD with interventions (pantoprazole, clonidine, dilation Schatzki's ring) Coordination of Care & Counseling Time: Greater than 50% of time spent with patient was for coordination of care (as documented) and [id number] counseling of patient and/or family. Dictated By: Taina Toussaint MD DD/ [id number] Signed By: <Electronically signed by MD Taina Toussaint> 06/13/23 [id number] [facility] Work Phone: [phone]) 940-176010-20-2023 Evaluation note* Encounter Date Diagnosis Assessment Notes Treatment Notes Treatment Clinical Notes May, Pernicious anemia (ICD-10 - D51.0) [place] [facility]* Encounter Date Diagnosis Assessment Notes Treatment Notes Treatment Clinical Notes May, Hiatal hernia (ICD-10 - K44.9) May, Chronic Feredom ulcer (ICD-10 - K25.7) [email or web address] Other 10-03-2023 Evaluation note* Encounter Date Diagnosis Assessment Notes Treatment Notes Treatment Clinical Notes May, Iron deficiency anemia (ICD-10 - D50.9) Pt to repeat EGD- push enteroscopy Pt to start clonadine low dose 0.1mg- half a pill bid Retrieve lab results from Dr. Toussaint [facility] Currently Other 09-23-2023 Progress note Author Taina Toussaint [facility] April 27, 2023 7:53pm Note Date/Time April 26, 2023 1:10pm [facility] [place] [address] Hem/Onc Follow Up Note - OP Signed Patient: Janine Conde MR#: [id number] : 1950 Acct:[id number] Age/Sex: 72 / F Type: REG RCR Copies to: DO Ricky Jordan MD~ Subjective Date/Time of Service: Date of Service: 04/26/2023 Time of Service: 13:09 Chief Complaint: Patient is here today for a one month follow up visit for Iron defiiciency anemia and go over labs HPI: 04/26/2023: Janine is here for followup after most recent Injectafer infusions. She has received Feraheme x 2 in Aug 2022, Injectafer in November/January/March 2023. Followup labs at [facility] show hemoglobin 8.4 with iron saturation 6.3% and ferritin 94. She has persistent fatigue and dyspnea on exertion, therefore we are coordinating another 2 weekly doses of Injectafer andreferring her back to gastroenterology for repeat EGD/colonoscopy and capsular endoscopy. She will f/u with me in 6 weeks with repeat labs and results of GI workup (possible push endoscopy with intervention if AVMs found). Moderate complexity 30 minute followup. 03/12/23 she continues to feel pretty well, denies significant fatigue recently returned from vacation and did not have issues with energy while there,stayed pretty active she denies shortness of breath, chest pain, black or tarry stool labs with persistent low iron- saturation 6.9%, ferritin 76 and hgb 10.3 01/08/23 she feels much improved since her last doses of Injectafer energy is good, she denies shortness of breath, chest pain or other new complaints this week has noted a few episodes of dark stool labs improving but not normal. hgb 10.9, iron sat 12% and ferritin 109 11/07/2022: Janine presents for follow-up for her iron deficiency anemia. She continues with increased fatigue and dyspnea on exertion. She denies black, tarry stool or other s/s of bleeding. No other new symptoms. She notes she was admitted at [facility] end of September for anemia and received a couple of units of blood while there. No active bleeding found at that time and iron studies WNL during admission. Iron studies currently low, will plan repletion with IV iron and will follow-up with labs in 2 months, sooner if needed. 08/09/2022: Janine is here for interval 2 month follow up to review most recent laboratories. Clinically, she is fatigued, chronically. Denies any significant shortness of breath, palpitations, chest pain, melena, hematochezia or BRBPR. Last iron infusion with Feraheme was 2 months ago. As noted previously, she has declined further Octreotide therapy due to intolerable side effects related to first injection given x 1 on 11/30/2021. Most recent laboratories from [facility] dated 08/06/2022 reveal hemoglobin - 10.7; ferritin- 34 and iron saturation - 5.9%. 06/06/2022: Here to review iron studies after her most recent Feraheme infusions in April 2022. I reviewed all of her iron infusions over the last 2 years. She previously received Injectafer 750 mg IV for total of 8 infusions during 2019. During 2020 she received Feraheme twice in January. She had capsule endoscopy with Dr. Elias in July 2021 which confirmed evidence of angiodysplasia. Also on EGD and colonoscopy May 2021 she had a large hiatalhernia with Schatzki's ring and diverticulosis. Recommendation was for trial ofoctreotide LAR in late November 2021 which she tolerated poorly. Since then she received iron infusions 6 times over the last 6 months. She has not had any melena or bright red blood per rectum. She continues to experience fatigue withactivities and her most recent labs at [facility] 06/04/2022 showed hemoglobin 11.7 with serum iron low 42.8, iron saturation 13.4, and ferritin 48. We are preparing iron infusion today with Feraheme 510 mg IV x2 weekly infusions. Since she has required about 3 infusions/year with the last infusiononly 2 months ago, we will repeat her CBC and iron studies in August 2022 although she may return sooner if she has symptomatic anemia. She may follow- upwith Dr. Elias as needed. 02/15/2022: Patient is here for 1 month follow up; s/p repeat Feraheme infusion ~4 weeks ago. On 01/03/2022 her hemoglobin was noted to be 9.1; ferritin 23.0; iron saturation 5%. She was subsequently given 01/16/2022 and 01/23/2022. Repeatlabs indicate modest improvement of hemoglobin from 9.1-10.5; ferritin now 75.0;iron saturation improved to 9%. As noted below, patient has had multiple EGD/colonoscopy procedures and wireless capsule endoscopy x2; with last WCE in July 2021. 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 She did trial a one-time dose of octreotide LAR 20 mg IM on 11/30/2021. She reported very poor tolerance to the injection citing significant abdominal pain, cramping, nausea and vomiting. Clinically, she is doing well and feeling well, in regards to energy levels and fatigue. Will continue close follow up. 01/05/2022: Janine presents for follow-up of her iron deficiency anemia. She continues to be fatigued and gets dyspneic easily on exertion. She denies this at rest, though. She denies dark stool, bright red blood per rectum, hematuria, coffee ground emesis or other sites of bleeding. She denies fevers, chills, sweats, weight loss, abdominal pain, diarrhea or constipation. She did have quite a bit of nausea, vomiting, and abdominal/back cramping and pain after her first dose of octreotide last month. She refuses any additional doses, even withpremedications offered. She only received 1 dose of Feraheme at that time. On review, her labs from [facility] reveal hgb 9.0 and iron saturation 5%. We will plan for repeat Feraheme x 2 doses and will follow-up in 6 weeks again for repeat labs 11/24/2021: She is here for follow-up today and transfer of followup (previouslyfollowed by Dr. Anam Abarca). She reports improved energy since most recent RBC transfusion and iron infusions at [place] but persistent fatigue. She still has episodes of light-headedness. She denies vertiginous symptoms and is okay driving. She denies fevers, chills, night sweats or unexplained weight loss. She admits to small amounts of blood in the stool but has a history of hemorrhoids. She has been on chronic PPI therapy for many years and takes it daily. She is on B12 supplementation. Her CBC from 10/2021 revealed a HGB of 7.7 g/dL, MCV 74, RDW 21%. No iron panel was reported. Labs from [place] 11/22/2021 with improved hemoglobin to 9.4 but still low iron saturation 3.9% and ferritin 20. 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 Followup with [facility] in 6 weeks to review iron studies after Feraheme 510mg x 2 doses and Octreotide LAR 20mg IM monthly. 10/24/2021 (YAZAN Chan) her energy is much improved after receiving Feraheme in September at [facility] she has her labs done at [facility] as well, none done this month for review she continues to note melena on occasion, not every day last colonoscopy and EGD done 05/15/21 revealing large hiatal hernia, hemorrhoids and Schatzki's Ring. She had a capsule endoscopy done 07/05/21 that showed angioectasia small bowel she denies any recent bleeding from hemorrhoids, these are well controlled she feels well overall without complaints beyond the continued melena 04/28/21 (Dr. Anam Abarca) feels ok today, energy stable denies any bleeding, denies ice cravings continues to take PPI daily, hemorrhoids under control denies any lightheadedness iron continues to be low, so will recommend updated scopes - Summary of Therapies Summary of Therapies: IV Iron with Injectafer, 12/2019, 02/2020, 06/2020, 09/2020, 09/2021--1 U RBC transfused and Feraheme 11/2021--ordered Feraheme and Octreotide LAR. Only received 1 dose of Feraheme. She had nausea, vomiting, cramping and abdominal + back pain with the octreotide, declines further therapy. Feraheme 510 mg IV x 2 doses: 01/16/2022 and 01/23/2022 04/24/2022 and 05/01/2022 06/14/2022 and 06/21/2022 2 doses 08/09/2022 Injectafer 750mg IV x 2: November/January/March/April 2023 ROS Details: All systems reviewed & no additional complaints except as documented Subjective/ROS - Narrative: CONSTITUTIONAL: Fevers [-], Chills [-], Night sweats [-], Weight Loss [-], Hot Flashes [-], Fatigue [+] recurrent after iron infusions last month HEENT: Changes in Vision [-], Changes in Hearing [-], Eye Pain [-], Ear Pain [- ], Mouth Sores [-], Change in Taste [-], Sore Throat [-], Hoarseness [-] CARDIOVASCULAR: Palpitations [-], Chest Pain [-], Chest Tightness [-], Swellingin Extremities [-] RESPIRATORY: Cough [-], Shortness of Breath [-], Dyspnea on Exertion [+], Wheezing [-] GASTROINTESTINAL: Abdominal Pain [-], Diarrhea [-], Constipation [-], Nausea [- ], Vomiting [-], Early Satiety [-], No visible Hematochezia [-], Melena [-] LYMPHATIC: Swollen Glands [-], Enlarged Lymph Nodes [-] INTEGUMENTARY: Rashes [-], Nodules [-], Ulcers [-], Blisters [-], Pigmentation Changes [-] HEMATOLOGIC: Easy Bruising [-], Gum Bleeding [-], Epistaxis [-], Prolonged Bleeding [-], Heavy Menses [-] GENITOURINARY: Hematuria [-], Difficulty Voiding [-], Pain with Voiding [-], Frequent Voiding [-] NEUROLOGIC: Numbness [-], Tingling [-], Altered Gait [-], Muscle Weakness [-], Lightheadedness [persists after recent transfusions/iron] MUSCULOSKELETAL: Muscle Pain [-], Bone Pain [-], Joint Pain [-] PSYCHIATRIC: Depressed Mood [-], Anxiety [-], Stressed [-] PMF - History Attestation statement: The following information was validated with the patient. Source: Old Records Reviewed - Medical History Medical History: Medical History (Last Reviewed 04/27/23 @ 19:35 by Taina Toussaint MD) Anemia Anxiety Depression GERD (gastroesophageal reflux disease) - Surgical History Surgical History: Surgical History (Last Reviewed 04/27/23 @ 19:35 by Taina Toussaint MD) H/O: hysterectomy History of bunionectomy Hx of cholecystectomy - Family History Family History: Family History (Last Reviewed 04/27/23 @ 19:35 by Taina Toussaint MD) Son No problems noted. Mother Pancreatitis Diabetes Father Emphysema of lung - Social History Smoking Status: Former smoker Tobacco Type: cigarettes Substance Use Type: None Home Medications & Allergies Allergies No Known Allergies Allergy (Verified 04/26/23 13:01) Home Medications trazodone 100 mg tablet 1 tab PO HS 06/20/19 [History Confirmed 04/26/23] venlafaxine 150 mg capsule,extended release 24 hr 150 mg PO DAILY 06/20/19 [History Confirmed 04/26/23] clonazepam 0.5 mg tablet 0.5 mg PO BID #0 tabs 06/23/19 [Rx Confirmed 04/26/23] buspirone 5 mg tablet 5 mg PO BID 06/22/21 [History Confirmed 04/26/23] Objective - Height/Weight Height/Weight: Height 5 ft 6 in Weight 110.677 kg BSA for Today's Weight 2.38 - Vital Signs Vital Signs: 04/26/23 13:02 Temperature 97.0 F L Pulse Rate [Left Brachial] 84 Respiratory Rate 16 Blood Pressure [Left Arm] 121/70 02 Sat by Pulse Oximetry 99 Oxygen Delivery Method Room Air - Pain Bilateral Leg Pain Intensity: 0 Physical Exam Narrative: ECOG PS: 1 due to fatigue General : patient is alert and oriented to person place and time, no acute distress. HEENT: no scleral icterus, no oral lesions Neck: no JVD or thyromegaly. Lymph: no cervical, supraclavicular, axillary adenopathy. Heart: regular rate and rhythm no murmurs rubs or gallops. Abdomen: soft nontender nondistended, no hepatosplenomegaly. Lungs: clear to auscultation bilaterally. No wheezes, rales, rhonchi. Extremities: no clubbing cyanosis. No edema - ECOG Performance Status ECOG Score: 1 Results - Labs Labs: Diagram of Most Recent CBC and CMP 01/19/21 09:05 01/01/20 11:27 Outside Labs: Labs at [facility]: 04/24/2023: WBC 5800, Hg 8.4, Hct 30.2, Platelets 354,000; ANC 4500 Na 141, K 4.2, Glu 98, BUN 14, Creat 0.95, Ca 8.9, TB 0.5, ALT 19, AST 14, AP 83, TP 6.9, Alb 3.4 Serum iron 24, Iron Sat 6.3%, Ferritin 94 - Impressions No recent imaging for review. Assessment and Plan (1) Iron deficiency anemia Qualifiers: Iron deficiency anemia type: other iron deficiency Qualified Code(s): D50.8- Other iron deficiency anemias 72 year old female with chronic iron deficiency most likely secondary to bleeding from AVMs. She has required recurrent IV iron infusions throughout the last 1.5 years. Repeat colonoscopy and EGD on 05/15/2021 reveal a large hiatal hernia, hemorrhoids, and Schatzki's Ring Capsule endoscopy on 07/05/2021 showed angioectasia of the small bowel 11/24/2021: Improved hemoglobin to 9.4 but still persistent fatigue and iron saturation still 3.9% I recommended repeat infusion of Injectafer 510mg x 2 doses. --Added Octreotide LAR 20mg IM monthly to prevent recurrent bleeding from AVMs given persistent anemia--she is not on any anticoagulant or antiplatelet therapy. We will have her follow-up in 6 weeks with [facility] and will plan for repeatiron studies and a cbc at that time. She is in agreement with this plan and had no further questions. Moderate complexity for transfer of care and adding Octreotide LAR with iron infusions. 01/05/2022: She continues with fatigue and persistent low counts despite 1 dose ofFeraheme and Octreotide in November. She denies any bleeding anywhere, no melena, and has had no medication changes since her last visit. She had a reaction to the Octreotide and does not want any additional doses (abdominal pain and nausea). We will plan to replete with additional 2 doses of Feraheme and will follow-up with cbc, iron studies and ferritin in 6 weeks. She is in agreement with this plan and has no additional questions. 11/14/2022: She continues with fatigue and dyspnea on exertion. In September was admitted for 2-3 days with anemia at [facility] and received transfusional support. Current labs reveal low iron with saturation 5.2%, ferritin 10 and her hemoglobin is 9.3. We will plan to replete with IV Injectafer (switch from previous Feraheme) and will repeat cbc, cmp and iron studies in 2 months with follow-up. She is in agreement with this plan and has no questions. 03/12/2023: She continues to feel pretty well overall, but her iron and hemoglobinremain low. She is not having any black, tarry stools or other s/s of bleeding. We discussed her persistent CONSUELO, and reviewed her previous Octreotide issues. She notes she had nausea and vomiting a few hours after she received the Octreotide previously and did not want to try that medication again. She is opento trying lanreotide if insurance approves, and if we can premedicate her with this. We will discuss with Dr. Toussaint and follow-up with the patient. She will receive additional IV Injectafer x 2 and will repeat labs in 1month with follow-up. We will also refer her back to Dr. Benson as she is agreeable to this now. 04/26/2023: Persistent anemia and low iron sat despite 5 separate round of parenteral iron (Feraheme, then Injectafer) since August. She has not yet beenseen by GI. I recommended repeat EGD/colonoscopy, possible push enteroscopy forinterventions on any visible AVMs. If they agree, we will give a trial of Lanreotide next month. Moderate complexity 30 minute followup. (2) Angiodysplasia of small intestine Persistent iron deficiency anemia despite multiple iron infusions over the past 3 years. Attempted Octreotide LAR 20mg IM monthly to prevent recurrent bleedingfrom AVMs documented on capsular endoscopy in 07/2021. 11/30/2021: Given first Octreotide 20 mg LAR IM injection with multiple GI side effects, abdominal pain, nausea, cramping --declines further therapy. She currently has no s/s of bleeding. Given her known AVM in the small intestine she will continue to require frequentiron infusions. She is not taking any anti-inflammatories and is not on any blood thinners. 11/07/2022: She continues to decline Octreotide therapy 03/12/2023: She will be referred back to Dr. Benson for re-evaluation as she continues to require regular iron infusions. We discussed her previous reaction to Octreotide including nausea and vomiting once she got home. She is open to trying Lanreotide with premedication if insurance approves. We will consider this 04/26/2023: Still pending GI referral, potential interventions for AVM if indicated. (3) B12 deficiency She is getting B12 injection monthly with PCP. (4) Hiatal hernia Stable symptoms, no PPI therapy currently. - Time with Patient Time Spent with Patient (Follow Up Visit): 35 minutes - Moderate complexity f/u for persistent iron deficiency, possibly resume Lanreotide with 6th round of iron infusions since August Coordination of Care & Counseling Time: Greater than 50% of time spent with patient was for coordination of care (as documented) and [id number] counseling of patient and/or family. Dictated By: Taina Toussaint MD DD/ [id number] Signed By: <Electronically signed by MD Taina Toussaint> 04/27/231952 [facility] Work Phone: [phone]) [phone] Evaluation note* Encounter Date Diagnosis Assessment Notes Treatment Notes Treatment Clinical Notes Apr, Pernicious anemia (ICD-10 - D51.0) [email or web address] Other 08-08-2023 Progress note Author Shiela Chan [facility] March 12, 2023 3:30pm Note Date/Time March 12, 2023 1:3 3pm [facility] [place] [address] Hem/Onc Follow Up Note - OP Signed Patient: Janine Conde MR#: [id number] : 1950 Acct:[id number] Age/Sex: 72 / F Type: REG RCR Copies to: MD Shalom Leslie DO Lawrence R Mccormack, MD~ Date of Service: 03/12/2023 Time of Service: 13:33 - Assessment & Plan (1) Iron deficiency anemia Plan: 71 year old female with chronic iron deficiency most likely secondary to bleeding from AVMs. She has required recurrent IV iron infusions throughout the last 1.5 years. 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 Rivear at [facility] September 2021 follow-up labs at [facility] with again low iron saturation at 3.5%, ferritin 15 and hemoglobin 6.6. She received 2 doses of Feraheme as well as 2 unitsPRBCs at [facility] 10/24/2021: She feels much better after receiving IV iron last month. She did nothave any labs drawn this month, but notes a considerable difference in her energy and dyspnea on exertion. She continues with occasional melena. She is concerned that following up every 3 months is too long to wait currently, since she usually is deficient and has to get blood transfusions as well by the time she is evaluated again. I encouraged her to call in anytime she feels that her fatigue and/or dyspnea is worsened, or if she notes increased dark stools and wecan have her seen sooner and get additional labs. 11/24/2021: Improved hemoglobin to 9.4 but still persistent fatigue and iron saturation still 3.9% I recommended repeat infusion of Injectafer 510mg x 2 doses. --Adding Octreotide LAR 20mg IM monthly to prevent recurrent bleeding from AVMs given persistent anemia--she is not on any anticoagulant or antiplatelet therapy. We will have her follow-up in 6 weeks with [facility] and will plan for repeat iron studies and a cbc at that time. She is in agreement with this plan and had no further questions. Moderate complexity for transfer of care and adding Octreotide LAR with iron infusions. 01/05/2022: She continues with fatigue and persistent low counts despite 1 dose ofFeraheme and Octreotide in November. She denies any bleeding anywhere, no melena, and has had no medication changes since her last visit. She had a reaction to the Octreotide and does not want any additional doses. We will plan to replete with additional 2 doses of Feraheme and will follow-up with cbc, iron studies and ferritin in 6 weeks. She is in agreement with this plan and has no additional questions. 02/15/2022: She notes improved fatigue; s/p recent Feraheme x 2 doses on 01/16/2022 and 01/23/2022. Hemoglobin levels improved from 9.1-10.5; iron saturation improved from 5% to 9%; ferritin improved from 23-75. Historically, the patient requires parenteral iron infusion on average every 2-3 months. Clinically, patient is feeling better and reports improved leg pain and improvedfatigue. -Follow-up in 2 months with clinic visit and repeat laboratories; patient knows to call sooner if she experiences any issues prior to scheduled appointment. 06/06/2022: Janine now has recurrent fatigue and dyspnea with exertion. She hasreceived multiple doses of Feraheme over the last 2 years, Injectafer in 2019. She has known history of angiodysplasia but was unable to tolerate octreotide LAR due to cramping abdominal pain. She has not had any visible bright red blood per rectum and most recent EGD/colonoscopy was May 2021 with capsular endoscopy July 2021 confirming angiodysplasia. Due to her persistent symptoms and anemia with hemoglobin 11.7 and iron saturation 13% we will prepareFeraheme 510 mg IV x2 doses over the next 2 weeks. Since she requires frequent surveillance, we will repeat her visit with CBC, serum iron profile, and ferritin in early August to see if she has had recurrent iron deficiency. May continue follow-up with myself and nurse practitioner. 08/09/2022: Janine is here for interval 2 month follow up to review most recent laboratories. Clinically, she is fatigued, chronically. Denies any significant shortness of breath, palpitations, chest pain, melena, hematochezia or BRBPR. Last iron infusion with Feraheme was 2 months ago. As noted previously, she has declined further Octreotide therapy due to intolerable side effects related to first injection given x 1 on 11/30/2021. Most recent laboratories from [facility] dated 08/06/2022 reveal hemoglobin - 10.7; ferritin- 34 and iron saturation - 5.9%. - she continues to require frequent surveillance with need for intravenous iron infusions every 2-3 months. - will arrange for Feraheme replacement today; follow up in ~ 2 months with repeat labs (CBC, iron studies + ferritin)- sooner if new or worsening symptoms. 11/14/2022: She continues with fatigue and dyspnea on exertion. In September was admitted for 2-3 days with anemia at [facility] and received transfusional support. Current labs reveal low iron with saturation 5.2%, ferritin 10 and her hemoglobin is 9.3. We will plan to replete with IV Injectafer (switch from previous Feraheme) and will repeat cbc, cmp and iron studies in 2 months with follow-up. She is in agreement with this plan and has no questions. 01/08/2023: She has improvement in symptoms- fatigue is better, she is not significantly dyspneic. She does have some dark stool this week, no other s/s ofbleeding. Labs are improving but not normalized; hgb 10.9, iron saturation 12% and ferritin 109. We will give additional IV Injectafer and plan for follow-up with repeat labs in 2 months, sooner as needed. She and her are in agreement with this plan and have no questions. 03/12/2023: She continues to feel pretty well overall, but her iron and hemoglobinremain low. She is not having any black, tarry stools or other s/s of bleeding. We discussed her persistent CONSUELO, and reviewed her previous Octreotide issues. She notes she had nausea and vomiting a few hours after she received the Octreotide previously and did not want to try that medication again. She is open to trying lanreotide if insurance approves, and if we can premedicate her with this. We will discuss with Dr. Toussaint and follow-up with the patient. She will receive additional IV Injectafer x 2 and will repeat labs in 1month with follow-up. We will also refer her back to Dr. Benson as she is agreeable to this now. (2) Angiodysplasia of small intestine Plan: Persistent iron deficiency anemia despite multiple iron infusions over the past year. Attempted Octreotide LAR 20mg IM monthly to prevent recurrent bleeding from AVMs documented on capsular endoscopy in 07/2021. 11/30/2021: Given first Octreotide 20 mg LAR IM injection with multiple GI side effects, abdominal pain, nausea, cramping --declines further therapy. She currently has no s/s of bleeding. Will continue repletion with intravenous Feraheme and monitor closely. Given her known AVM in the small intestine she will continue to require frequentiron infusions. She is not taking any anti-inflammatories and is not on any blood thinners. 11/07/2022: She continues to decline Octreotide therapy 03/12/2023: She will be referred back to Dr. Benson for re-evaluation as she continues to require regular iron infusions. We discussed her previous reaction to Octreotide including nausea and vomiting once she got home. She is open to trying Lanreotide with premedication if insurance approves. We will consider this (3) B12 deficiency Plan: She is getting B12 injection monthly with PCP. (4) Hiatal hernia Follow Up Instructions: IV Injectafer x 2 cbc, cmp, iron studies in 1mo follow-up in 1mo refer back to Dr. Benson - History of Present Illness Chief Complaint: Patient is here today for a 2 month follow up visit for iron deficiency anemia and go over labs HPI: 11/07/2022: Janine presents for follow-up for her iron deficiency anemia. She continues with increased fatigue and dyspnea on exertion. She denies black, tarry stool or other s/s of bleeding. No other new symptoms. She notes she was admitted at [facility] end of September for anemia and received a couple of units of blood while there. No active bleeding found at that time and iron studies WNL during admission. Iron studies currently low, will plan repletion with IV iron and will follow-up with labs in 2 months, sooner if needed. 08/09/2022: Janine is here for interval 2 month follow up to review most recent laboratories. Clinically, she is fatigued, chronically. Denies any significant shortness of breath, palpitations, chest pain, melena, hematochezia or BRBPR. Last iron infusion with Feraheme was 2 months ago. As noted previously, she has declined further Octreotide therapy due to intolerable side effects related to first injection given x 1 on 11/30/2021. Most recent laboratories from [facility] dated 08/06/2022 reveal hemoglobin - 10.7; ferritin- 34 and iron saturation - 5.9%. 06/06/2022: Here to review iron studies after her most recent Feraheme infusions in April 2022. I reviewed all of her iron infusions over the last 2 years. She previously received Injectafer 750 mg IV for total of 8 infusions during 2019. During 2020 she received Feraheme twice in January. She had capsule endoscopy with Dr. Elias in July 2021 which confirmed evidence of angiodysplasia. Also on EGD and colonoscopy May 2021 she had a large hiatalhernia with Schatzki's ring and diverticulosis. Recommendation was for trial ofoctreotide LAR in late November 2021 which she tolerated poorly. Since then she received iron infusions 6 times over the last 6 months. She has not had any melena or bright red blood per rectum. She continues to experience fatigue withactivities and her most recent labs at [facility] 06/04/2022 showed hemoglobin 11.7 with serum iron low 42.8, iron saturation 13.4, and ferritin 48. We are preparing iron infusion today with Feraheme 510 mg IV x2 weekly infusions. Since she has required about 3 infusions/year with the last infusiononly 2 months ago, we will repeat her CBC and iron studies in August 2022 although she may return sooner if she has symptomatic anemia. She may follow- upwith Dr. Elias as needed. 02/15/2022: Patient is here for 1 month follow up; s/p repeat Feraheme infusion ~4 weeks ago. On 01/03/2022 her hemoglobin was noted to be 9.1; ferritin 23.0; iron saturation 5%. She was subsequently given 01/16/2022 and 01/23/2022. Repeatlabs indicate modest improvement of hemoglobin from 9.1-10.5; ferritin now 75.0;iron saturation improved to 9%. As noted below, patient has had multiple EGD/colonoscopy procedures and wireless capsule endoscopy x2; with last WCE in July 2021. 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 She did trial a one-time dose of octreotide LAR 20 mg IM on 11/30/2021. She reported very poor tolerance to the injection citing significant abdominal pain, cramping, nausea and vomiting. Clinically, she is doing well and feeling well, in regards to energy levels and fatigue. Will continue close follow up. 01/05/2022: Janine presents for follow-up of her iron deficiency anemia. She continues to be fatigued and gets dyspneic easily on exertion. She denies this at rest, though. She denies dark stool, bright red blood per rectum, hematuria, coffee ground emesis or other sites of bleeding. She denies fevers, chills, sweats, weight loss, abdominal pain, diarrhea or constipation. She did have quite a bit of nausea, vomiting, and abdominal/back cramping and pain after her first dose of octreotide last month. She refuses any additional doses, even withpremedications offered. She only received 1 dose of Feraheme at that time. On review, her labs from [facility] reveal hgb 9.0 and iron saturation 5%. We will plan for repeat Feraheme x 2 doses and will follow-up in 6 weeks again for repeat labs 11/24/2021: She is here for follow-up today and transfer of followup (previouslyfollowed by Dr. Anam Abarca). She reports improved energy since most recent RBC transfusion and iron infusions at [place] but persistent fatigue. She still has episodes of light-headedness. She denies vertiginous symptoms and is okay driving. She denies fevers, chills, night sweats or unexplained weight loss. She admits to small amounts of blood in the stool but has a history of hemorrhoids. She has been on chronic PPI therapy for many years and takes it daily. She is on B12 supplementation. Her CBC from 10/2021 revealed a HGB of 7.7 g/dL, MCV 74, RDW 21%. No iron panel was reported. Labs from [place] 11/22/2021 with improved hemoglobin to 9.4 but still low iron saturation 3.9% and ferritin 20. 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 Followup with [facility] in 6 weeks to review iron studies after Feraheme 510mg x 2 doses and Octreotide LAR 20mg IM monthly. 04/28/21 (Dr. Anam Abarca) feels ok today, energy stable denies any bleeding, denies ice cravings continues to take PPI daily, hemorrhoids under control denies any lightheadedness iron continues to be low, so will recommend updated scopes 10/24/2021 (YAZAN Chan) her energy is much improved after receiving Feraheme in September at [facility] she has her labs done at [facility] as well, none done this month for review she continues to note melena on occasion, not every day last colonoscopy and EGD done 05/15/21 revealing large hiatal hernia, hemorrhoids and Schatzki's Ring. She had a capsule endoscopy done 07/05/21 that showed angioectasia small bowel she denies any recent bleeding from hemorrhoids, these are well controlled she feels well overall without complaints beyond the continued melena 11/07/2022: Janine presents for follow-up for her iron deficiency anemia. She continues with increased fatigue and dyspnea on exertion. She denies black, tarry stool or other s/s of bleeding. No other new symptoms. She notes she was admitted at [facility] end of September for anemia and received a couple of units of blood while there. No active bleeding found at that time and iron studies WNL during admission. Iron studies currently low, will plan repletion with IV iron and will follow-up with labs in 2 months, sooner if needed. 01/08/23 she feels much improved since her last doses of Injectafer energy is good, she denies shortness of breath, chest pain or other new complaints this week has noted a few episodes of dark stool labs improving but not normal. hgb 10.9, iron sat 12% and ferritin 109 03/12/23 she continues to feel pretty well, denies significant fatigue recently returned from vacation and did not have issues with energy while there,stayed pretty active she denies shortness of breath, chest pain, black or tarry stool labs with persistent low iron- saturation 6.9%, ferritin 76 and hgb 10.3 - Physical Exam ECOG PS: 0 General : patient is alert and oriented to person place and time, no acute distress. HEENT: no scleral icterus, no oral lesions Neck: no JVD or thyromegaly. Lymph: no cervical, supraclavicular, axillary adenopathy. Heart: regular rate and rhythm no murmurs rubs or gallops. Abdomen: soft nontender nondistended, no hepatosplenomegaly. Lungs: clear to auscultation bilaterally. No wheezes, rales, rhonchi. Extremities: no clubbing cyanosis. No edema - Time with Patient Coordination of Care & Counseling Time: Greater than 50% of time spent with patient was for coordination of care (as documented) and [id number] counseling of patient and/or family. [facility] - Medical History Medical History: Medical History (Last Reviewed 06/06/22 @ 10:20 by Taina Toussaint MD) Anemia Anxiety Depression GERD (gastroesophageal reflux disease) - Surgical History Surgical History: Surgical History (Last Reviewed 06/06/22 @ 10:20 by Taina Toussaint MD) H/O: hysterectomy History of bunionectomy Hx of cholecystectomy - Family History Family History: Family History (Last Reviewed 06/06/22 @ 10:20 by Taina Toussaint MD) Son No problems noted. Mother Pancreatitis Diabetes Father Emphysema of lung - Social History Smoking Status: Former smoker Tobacco Type: cigarettes Substance Use Type: None Additional Data - Additional Objective Data Height/Weight: Height 5 ft 6 in Weight 112.491 kg BSA for Today's Weight 2.38 Vital Signs: 03/12/23 13:03 Temperature 97.8 F Pulse Rate [Left Brachial] 75 Respiratory Rate 16 Blood Pressure [Left Arm] 111/53 L 02 Sat by Pulse Oximetry 100 Oxygen Delivery Method Room Air - Lab Results Diagram of Most Recent CBC and CMP 01/19/21 09:05 01/01/20 11:27 - Home Medications and Allergies Allergies/Adverse Reactions: Allergies No Known Allergies Allergy (Verified 03/12/23 13:02) Home Medications: Home Medications trazodone 100 mg tablet 1 tab PO HS 06/20/19 [History Confirmed 03/12/23] venlafaxine 150 mg capsule,extended release 24 hr 150 mg PO DAILY 06/20/19 [History Confirmed 03/12/23] clonazepam 0.5 mg tablet 0.5 mg PO BID #0 tabs 06/23/19 [Rx Confirmed 03/12/23] buspirone 5 mg tablet 5 mg PO BID 06/22/21 [History Confirmed 03/12/23] Dictated By: Shiela Chan APRN DD/ Signed By: <Electronically signed by SONIA Chan> 03/12/23 1530 [facility] Work Phone: [phone] [phone] Evaluation note* Encounter Date Diagnosis Assessment Notes Treatment Notes Treatment Clinical Notes Feb, Pernicious anemia (ICD-10 - D51.0) [place] [facility] Other 06-06-2023 Progress note Author Shiela Chan [facility] January 08, 2023 2:18pm Note Date/Time January 08, 2023 2:14p m [facility] [place] [id number] Hem/Onc Follow Up Note - OP Signed Patient: Janine Conde MR#: [id number] : 1950 Acct:[id number] Age/Sex: 72 / F Type: REG RCR Copies to: DO Ricky Jordan MD~ Date of Service: 01/08/2023 Time of Service: 14:13 - Assessment & Plan (1) Iron deficiency anemia Plan: 71 year old female with chronic iron deficiency most likely secondary to bleeding from AVMs. She has required recurrent IV iron infusions throughout the last 1.5 years. 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 Rivera at [facility] September 2021 follow-up labs at [facility] with again low iron saturation at 3.5%, ferritin 15 and hemoglobin 6.6. She received 2 doses of Feraheme as well as 2 units PRBCs at [facility] 10/24/2021: She feels much better after receiving IV iron last month. She did nothave any labs drawn this month, but notes a considerable difference in her energy and dyspnea on exertion. She continues with occasional melena. She is concerned that following up every 3 months is too long to wait currently, since she usually is deficient and has to get blood transfusions as well by the time she is evaluated again. I encouraged her to call in anytime she feels that her fatigue and/or dyspnea is worsened, or if she notes increased dark stools and wecan have her seen sooner and get additional labs. 11/24/2021: Improved hemoglobin to 9.4 but still persistent fatigue and iron saturation still 3.9% I recommended repeat infusion of Injectafer 510mg x 2 doses. --Adding Octreotide LAR 20mg IM monthly to prevent recurrent bleeding from AVMs given persistent anemia--she is not on any anticoagulant or antiplatelet therapy. We will have her follow-up in 6 weeks with [facility] and will plan for repeat iron studies and a cbc at that time. She is in agreement with this plan and had no further questions. Moderate complexity for transfer of care and adding Octreotide LAR with iron infusions. 01/05/2022: She continues with fatigue and persistent low counts despite 1 dose ofFeraheme and Octreotide in November. She denies any bleeding anywhere, no melena, and has had no medication changes since her last visit. She had a reaction to the Octreotide and does not want any additional doses. We will plan to replete with additional 2 doses of Feraheme and will follow-up with cbc, iron studies and ferritin in 6 weeks. She is in agreement with this plan and has no additional questions. 02/15/2022: She notes improved fatigue; s/p recent Feraheme x 2 doses on 01/16/2022 and 01/23/2022. Hemoglobin levels improved from 9.1-10.5; iron saturation improved from 5% to 9%; ferritin improved from 23-75. Historically, the patient requires parenteral iron infusion on average every 2-3 months. Clinically, patient is feeling better and reports improved leg pain and improvedfatigue. -Follow-up in 2 months with clinic visit and repeat laboratories; patient knows to call sooner if she experiences any issues prior to scheduled appointment. 06/06/2022: Janine now has recurrent fatigue and dyspnea with exertion. She hasreceived multiple doses of Feraheme over the last 2 years, Injectafer in 2019. She has known history of angiodysplasia but was unable to tolerate octreotide LAR due to cramping abdominal pain. She has not had any visible bright red blood per rectum and most recent EGD/colonoscopy was May 2021 with capsular endoscopy July 2021 confirming angiodysplasia. Due to her persistent symptoms and anemia with hemoglobin 11.7 and iron saturation 13% we will prepareFeraheme 510 mg IV x2 doses over the next 2 weeks. Since she requires frequent surveillance, we will repeat her visit with CBC, serum iron profile, and ferritin in early August to see if she has had recurrent iron deficiency. May continue follow-up with myself and nurse practitioner. 08/09/2022: Janine is here for interval 2 month follow up to review most recent laboratories. Clinically, she is fatigued, chronically. Denies any significant shortness of breath, palpitations, chest pain, melena, hematochezia or BRBPR. Last iron infusion with Feraheme was 2 months ago. As noted previously, she has declined further Octreotide therapy due to intolerable side effects related to first injection given x 1 on 11/30/2021. Most recent laboratories from [facility] dated 08/06/2022 reveal hemoglobin - 10.7; ferritin- 34 and iron saturation - 5.9%. - she continues to require frequent surveillance with need for intravenous iron infusions every 2-3 months. - will arrange for Feraheme replacement today; follow up in ~ 2 months with repeat labs (CBC, iron studies + ferritin)- sooner if new or worsening symptoms. 11/14/2022: She continues with fatigue and dyspnea on exertion. In September was admitted for 2-3 days with anemia at [facility] and received transfusional support. Current labs reveal low iron with saturation 5.2%, ferritin 10 and her hemoglobin is 9.3. We will plan to replete with IV Injectafer (switch from previous Feraheme) and will repeat cbc, cmp and iron studies in 2 months with follow-up. She is in agreement with this plan and has no questions. 01/08/2023: She has improvement in symptoms- fatigue is better, she is not significantly dyspneic. She does have some dark stool this week, no other s/s ofbleeding. Labs are improving but not normalized; hgb 10.9, iron saturation 12% and ferritin 109. We will give additional IV Injectafer and plan for follow-up with repeat labs in 2 months, sooner as needed. She and her are in agreement with this plan and have no questions. (2) Angiodysplasia of small intestine (3) B12 deficiency (4) Hiatal hernia Follow Up Instructions: IV Injectafer (1 dose next week, the other once they return from vacation) cbc, cmp, iron studies in 2mo follow-up in 2mo - History of Present Illness Chief Complaint: Patient is here today for a 2 month follow up visit for iron deficiency anemia and go ovr labs HPI: 11/07/2022: Janine presents for follow-up for her iron deficiency anemia. She continues with increased fatigue and dyspnea on exertion. She denies black, tarry stool or other s/s of bleeding. No other new symptoms. She notes she was admitted at [facility] end of September for anemia and received a couple of units of blood while there. No active bleeding found at that time and iron studies WNL during admission. Iron studies currently low, will plan repletion with IV iron and will follow-up with labs in 2 months, sooner if needed. 08/09/2022: Janine is here for interval 2 month follow up to review most recent laboratories. Clinically, she is fatigued, chronically. Denies any significant shortness of breath, palpitations, chest pain, melena, hematochezia or BRBPR. Last iron infusion with Feraheme was 2 months ago. As noted previously, she has declined further Octreotide therapy due to intolerable side effects related to first injection given x 1 on 11/30/2021. Most recent laboratories from [facility] dated 08/06/2022 reveal hemoglobin - 10.7; ferritin- 34 and iron saturation - 5.9%. 06/06/2022: Here to review iron studies after her most recent Feraheme infusions in April 2022. I reviewed all of her iron infusions over the last 2 years. She previously received Injectafer 750 mg IV for total of 8 infusions during 2019. During 2020 she received Feraheme twice in January. She had capsule endoscopy with Dr. Elias in July 2021 which confirmed evidence of angiodysplasia. Also on EGD and colonoscopy May 2021 she had a large hiatalhernia with Schatzki's ring and diverticulosis. Recommendation was for trial ofoctreotide LAR in late November 2021 which she tolerated poorly. Since then she received iron infusions 6 times over the last 6 months. She has not had any melena or bright red blood per rectum. She continues to experience fatigue withactivities and her most recent labs at [facility] 06/04/2022 showed hemoglobin 11.7 with serum iron low 42.8, iron saturation 13.4, and ferritin 48. We are preparing iron infusion today with Feraheme 510 mg IV x2 weekly infusions. Since she has required about 3 infusions/year with the last infusiononly 2 months ago, we will repeat her CBC and iron studies in August 2022 although she may return sooner if she has symptomatic anemia. She may follow- upwith Dr. Elias as needed. 02/15/2022: Patient is here for 1 month follow up; s/p repeat Feraheme infusion ~4 weeks ago. On 01/03/2022 her hemoglobin was noted to be 9.1; ferritin 23.0; iron saturation 5%. She was subsequently given 01/16/2022 and 01/23/2022. Repeatlabs indicate modest improvement of hemoglobin from 9.1-10.5; ferritin now 75.0;iron saturation improved to 9%. As noted below, patient has had multiple EGD/colonoscopy procedures and wireless capsule endoscopy x2; with last WCE in July 2021. 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 She did trial a one-time dose of octreotide LAR 20 mg IM on 11/30/2021. She reported very poor tolerance to the injection citing significant abdominal pain, cramping, nausea and vomiting. Clinically, she is doing well and feeling well, in regards to energy levels and fatigue. Will continue close follow up. 01/05/2022: Janine presents for follow-up of her iron deficiency anemia. She continues to be fatigued and gets dyspneic easily on exertion. She denies this at rest, though. She denies dark stool, bright red blood per rectum, hematuria, coffee ground emesis or other sites of bleeding. She denies fevers, chills, sweats, weight loss, abdominal pain, diarrhea or constipation. She did have quite a bit of nausea, vomiting, and abdominal/back cramping and pain after her first dose of octreotide last month. She refuses any additional doses, even withpremedications offered. She only received 1 dose of Feraheme at that time. On review, her labs from [facility] reveal hgb 9.0 and iron saturation 5%. We will plan for repeat Feraheme x 2 doses and will follow-up in 6 weeks again for repeat labs 11/24/2021: She is here for follow-up today and transfer of followup (previouslyfollowed by Dr. Anam Abarca). She reports improved energy since most recent RBC transfusion and iron infusions at [place] but persistent fatigue. She still has episodes of light-headedness. She denies vertiginous symptoms and is okay driving. She denies fevers, chills, night sweats or unexplained weight loss. She admits to small amounts of blood in the stool but has a history of hemorrhoids. She has been on chronic PPI therapy for many years and takes it daily. She is on B12 supplementation. Her CBC from 10/2021 revealed a HGB of 7.7 g/dL, MCV 74, RDW 21%. No iron panel was reported. Labs from [place] 11/22/2021 with improved hemoglobin to 9.4 but still low iron saturation 3.9% and ferritin 20. 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 Followup with [facility] in 6 weeks to review iron studies after Feraheme 510mg x 2 doses and Octreotide LAR 20mg IM monthly. 04/28/21 (Dr. Anam Abarca) feels ok today, energy stable denies any bleeding, denies ice cravings continues to take PPI daily, hemorrhoids under control denies any lightheadedness iron continues to be low, so will recommend updated scopes 10/24/2021 (YAZAN Chan) her energy is much improved after receiving Feraheme in September at [facility] she has her labs done at [facility] as well, none done this month for review she continues to note melena on occasion, not every day last colonoscopy and EGD done 05/15/21 revealing large hiatal hernia, hemorrhoids and Schatzki's Ring. She had a capsule endoscopy done 07/05/21 that showed angioectasia small bowel she denies any recent bleeding from hemorrhoids, these are well controlled she feels well overall without complaints beyond the continued melena 11/07/2022: Janine presents for follow-up for her iron deficiency anemia. She continues with increased fatigue and dyspnea on exertion. She denies black, tarry stool or other s/s of bleeding. No other new symptoms. She notes she was admitted at [facility] end of September for anemia and received a couple of units of blood while there. No active bleeding found at that time and iron studies WNL during admission. Iron studies currently low, will plan repletion with IV iron and will follow-up with labs in 2 months, sooner if needed. 01/08/23 she feels much improved since her last doses of Injectafer energy is good, she denies shortness of breath, chest pain or other new complaints this week has noted a few episodes of dark stool labs improving but not normal. hgb 10.9, iron sat 12% and ferritin 109 - Physical Exam ECOG PS: 0 General : patient is alert and oriented to person place and time, no acute distress. HEENT: no scleral icterus, no oral lesions Neck: no JVD or thyromegaly. Lymph: no cervical, supraclavicular, axillary adenopathy. Heart: regular rate and rhythm no murmurs rubs or gallops. Abdomen: soft nontender nondistended, no hepatosplenomegaly. Lungs: clear to auscultation bilaterally. No wheezes, rales, rhonchi. Extremities: no clubbing cyanosis. No edema - Time with Patient Coordination of Care & Counseling Time: Greater than 50% of time spent with patient was for coordination of care (as documented) and [id number] counseling of patient and/or family. [facility] - Medical History Medical History: Medical History (Last Reviewed 06/06/22 @ 10:20 by Taina Toussaint MD) Anemia Anxiety Depression GERD (gastroesophageal reflux disease) - Surgical History Surgical History: Surgical History (Last Reviewed 06/06/22 @ 10:20 by Taina Toussaint MD) H/O: hysterectomy History of bunionectomy Hx of cholecystectomy - Family History Family History: Family History (Last Reviewed 06/06/22 @ 10:20 by Taina Toussaint MD) Son No problems noted. Mother Pancreatitis Diabetes Father Emphysema of lung - Social History Smoking Status: Former smoker Tobacco Type: cigarettes Substance Use Type: None Additional Data - Additional Objective Data Height/Weight: Height 5 ft 6 in Weight 115.212 kg BSA for Today's Weight 2.38 Vital Signs: 01/08/23 13:33 Temperature 97.8 F Pulse Rate [Left Brachial] 84 Respiratory Rate 16 Blood Pressure [Left Arm] 132/64 02 Sat by Pulse Oximetry 98 Oxygen Delivery Method Room Air - Lab Results Diagram of Most Recent CBC and CMP 01/19/21 09:05 01/01/20 11:27 - Home Medications and Allergies Allergies/Adverse Reactions: Allergies No Known Allergies Allergy (Verified 01/08/23 13:32) Home Medications: Home Medications trazodone 100 mg tablet 1 tab PO HS 06/20/19 [History Confirmed 01/08/23] venlafaxine 150 mg capsule,extended release 24 hr 150 mg PO DAILY 06/20/19 [History Confirmed 01/08/23] clonazepam 0.5 mg tablet 0.5 mg PO BID #0 tabs 06/23/19 [Rx Confirmed 01/08/23] buspirone 5 mg tablet 5 mg PO BID 06/22/21 [History Confirmed 01/08/23] Dictated By: Shiela Chan APRN DD/ 141 Signed By: <Electronically signed by SONIA Chan> 01/08/23 1418 [facility] Work Phone: [phone]) 231-633605-09-2023 Evaluation note* Encounter Date Diagnosis Assessment Notes Treatment Notes Treatment Clinical Notes December, Pernicious anemia (ICD-10 - D51.0) [facility] Currently Other 04-17-2023 Evaluation note* Encounter Date Diagnosis Assessment Notes Treatment Notes Treatment Clinical Notes Nov, Essential hypertension (ICD-10 - I10) This patient is instructed to consume a healthy, low-fat, low-salt diet. They are also encouraged to continue exercise to achieve/maintain a normal BMI. Nov, Iron deficiency anemia due to chronic blood loss (ICD-10 - D50.0) Recently hospitalized due to GI bleed secondary to ongoing alcohol use. Stopped alcohol consumption f/u H/H improving f/u Hematology, will fax labs, CT abd to Dr. Toussaint Nov, YARI (generalized anxiety disorder) (ICD-10 - F41.1) Healthy diet, keep active, exercise. f/u Dr. Spencer Nov, Alcohol dependence with alcohol-induced anxiety disorder (ICD-10 - F10.280) Continue abstinence [facility] Currently Other 04-12-2023 Progress note Author Shiela Chan [facility] November 14, 2022 2:04pm Note Date/Time November 07, 2022 11:4 5am [facility] [place] [address] Hem/Onc Follow Up Note - OP Signed Patient: Janine Conde MR#: [id number] : 1950 Acct:[id number] Age/Sex: 72 / F Type: REG RCR Copies to: DO Ricky Jordan MD~ Subjective Date/Time of Service: Date of Service: 11/07/2022 Time of Service: 11:44 Chief Complaint: Patient is here for a 3 month follow up with outside labs for review. No concerns voiced at this time. HPI: 11/07/2022: Janine presents for follow-up for her iron deficiency anemia. She continues with increased fatigue and dyspnea on exertion. She denies black, tarry stool or other s/s of bleeding. No other new symptoms. She notes she was admitted at [facility] end of September for anemia and received a couple of units of blood while there. No active bleeding found at that time and iron studies WNL during admission. Iron studies currently low, will plan repletion with IV iron and will follow-up with labs in 2 months, sooner if needed. 08/09/2022: Janine is here for interval 2 month follow up to review most recent laboratories. Clinically, she is fatigued, chronically. Denies any significant shortness of breath, palpitations, chest pain, melena, hematochezia or BRBPR. Last iron infusion with Feraheme was 2 months ago. As noted previously, she has declined further Octreotide therapy due to intolerable side effects related to first injection given x 1 on 11/30/2021. Most recent laboratories from [facility] dated 08/06/2022 reveal hemoglobin - 10.7; ferritin- 34 and iron saturation - 5.9%. 06/06/2022: Here to review iron studies after her most recent Feraheme infusions in April 2022. I reviewed all of her iron infusions over the last 2 years. She previously received Injectafer 750 mg IV for total of 8 infusions during 2019. During 2020 she received Feraheme twice in January. She had capsule endoscopy with Dr. Elias in July 2021 which confirmed evidence of angiodysplasia. Also on EGD and colonoscopy May 2021 she had a large hiatalhernia with Schatzki's ring and diverticulosis. Recommendation was for trial ofoctreotide LAR in late November 2021 which she tolerated poorly. Since then she received iron infusions 6 times over the last 6 months. She has not had any melena or bright red blood per rectum. She continues to experience fatigue withactivities and her most recent labs at [facility] 06/04/2022 showed hemoglobin 11.7 with serum iron low 42.8, iron saturation 13.4, and ferritin 48. We are preparing iron infusion today with Feraheme 510 mg IV x2 weekly infusions. Since she has required about 3 infusions/year with the last infusiononly 2 months ago, we will repeat her CBC and iron studies in August 2022 although she may return sooner if she has symptomatic anemia. She may follow- upwith Dr. Elias as needed. 02/15/2022: Patient is here for 1 month follow up; s/p repeat Feraheme infusion ~4 weeks ago. On 01/03/2022 her hemoglobin was noted to be 9.1; ferritin 23.0; iron saturation 5%. She was subsequently given 01/16/2022 and 01/23/2022. Repeatlabs indicate modest improvement of hemoglobin from 9.1-10.5; ferritin now 75.0;iron saturation improved to 9%. As noted below, patient has had multiple EGD/colonoscopy procedures and wireless capsule endoscopy x2; with last WCE in July 2021. 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 She did trial a one-time dose of octreotide LAR 20 mg IM on 11/30/2021. She reported very poor tolerance to the injection citing significant abdominal pain, cramping, nausea and vomiting. Clinically, she is doing well and feeling well, in regards to energy levels and fatigue. Will continue close follow up. 01/05/2022: Janine presents for follow-up of her iron deficiency anemia. She continues to be fatigued and gets dyspneic easily on exertion. She denies this at rest, though. She denies dark stool, bright red blood per rectum, hematuria, coffee ground emesis or other sites of bleeding. She denies fevers, chills, sweats, weight loss, abdominal pain, diarrhea or constipation. She did have quite a bit of nausea, vomiting, and abdominal/back cramping and pain after her first dose of octreotide last month. She refuses any additional doses, even withpremedications offered. She only received 1 dose of Feraheme at that time. On review, her labs from [facility] reveal hgb 9.0 and iron saturation 5%. We will plan for repeat Feraheme x 2 doses and will follow-up in 6 weeks again for repeat labs 11/24/2021: She is here for follow-up today and transfer of followup (previouslyfollowed by Dr. Anam Abarca). She reports improved energy since most recent RBC transfusion and iron infusions at [place] but persistent fatigue. She still has episodes of light-headedness. She denies vertiginous symptoms and is okay driving. She denies fevers, chills, night sweats or unexplained weight loss. She admits to small amounts of blood in the stool but has a history of hemorrhoids. She has been on chronic PPI therapy for many years and takes it daily. She is on B12 supplementation. Her CBC from 10/2021 revealed a HGB of 7.7 g/dL, MCV 74, RDW 21%. No iron panel was reported. Labs from [place] 11/22/2021 with improved hemoglobin to 9.4 but still low iron saturation 3.9% and ferritin 20. 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 Followup with [facility] in 6 weeks to review iron studies after Feraheme 510mg x 2 doses and Octreotide LAR 20mg IM monthly. 04/28/21 (Dr. Anam Abarca) feels ok today, energy stable denies any bleeding, denies ice cravings continues to take PPI daily, hemorrhoids under control denies any lightheadedness iron continues to be low, so will recommend updated scopes 10/24/2021 (YAZAN Chan) her energy is much improved after receiving Feraheme in September at [facility] she has her labs done at [facility] as well, none done this month for review she continues to note melena on occasion, not every day last colonoscopy and EGD done 05/15/21 revealing large hiatal hernia, hemorrhoids and Schatzki's Ring. She had a capsule endoscopy done 07/05/21 that showed angioectasia small bowel she denies any recent bleeding from hemorrhoids, these are well controlled she feels well overall without complaints beyond the continued melena - Summary of Therapies Summary of Therapies: IV Iron with Injectafer, 12/2019, 02/2020, 06/2020, 09/2020, 09/2021--1 U RBC transfused and Feraheme 11/2021--ordered Feraheme and Octreotide LAR. Only received 1 dose of Feraheme. She had nausea, vomiting, cramping and abdominal + back pain with the octreotide, declines further therapy. Feraheme 510 mg IV x 2 doses: 01/16/2022 and 01/23/2022 04/24/2022 and 05/01/2022 06/14/2022 and 06/21/2022 Ordered 2 doses 08/09/2022 Ordered 2 additional doses November 2022 ROS Details: All systems reviewed & no additional complaints except as documented PMFSH - Medical History Medical History: Medical History (Last Reviewed 06/06/22 @ 10:20 by Taina Toussaint MD) Anemia Anxiety Depression GERD (gastroesophageal reflux disease) - Surgical History Surgical History: Surgical History (Last Reviewed 06/06/22 @ 10:20 by Taina Toussaint MD) H/O: hysterectomy History of bunionectomy Hx of cholecystectomy - Family History Family History: Family History (Last Reviewed 06/06/22 @ 10:20 by Taina Toussaint MD) Son No problems noted. Mother Pancreatitis Diabetes Father Emphysema of lung - Social History Smoking Status: Former smoker Tobacco Type: cigarettes Substance Use Type: None Home Medications & Allergies Allergies No Known Allergies Allergy (Verified 06/06/22 09:58) Home Medications trazodone 100 mg tablet 1 tab PO HS 06/20/19 [History Confirmed 11/07/22] venlafaxine 150 mg capsule,extended release 24 hr 150 mg PO DAILY 06/20/19 [History Confirmed 11/07/22] clonazepam 0.5 mg tablet 0.5 mg PO BID #0 tabs 06/23/19 [Rx Confirmed 11/07/22] buspirone 5 mg tablet 5 mg PO BID 06/22/21 [History Confirmed 11/07/22] Objective - Height/Weight Height/Weight: Height 5 ft 6 in Weight 113.7 kg BSA for Today's Weight 2.38 - Vital Signs Vital Signs: 11/07/22 11:32 Temperature 97.9 F Pulse Rate [Left Brachial] 79 Respiratory Rate 20 Blood Pressure [Left Arm] 99/58 L 02 Sat by Pulse Oximetry 98 Oxygen Delivery Method Room Air - Pain Bilateral Leg Pain Intensity: 0 Physical Exam Narrative: ECOG PS: 0 General : patient is alert and oriented to person place and time, no acute distress. HEENT: no scleral icterus, no oral lesions Neck: no JVD or thyromegaly. Lymph: no cervical, supraclavicular, axillary adenopathy. Heart: regular rate and rhythm no murmurs rubs or gallops. Abdomen: soft nontender nondistended, no hepatosplenomegaly. Lungs: clear to auscultation bilaterally. No wheezes, rales, rhonchi. Extremities: no clubbing cyanosis. No edema Results - Labs Labs: Diagram of Most Recent CBC and CMP 01/19/21 09:05 01/01/20 11:27 Assessment and Plan (1) Iron deficiency anemia Qualifiers: Iron deficiency anemia type: other iron deficiency Qualified Code(s): D50.8- Other iron deficiency anemias 71 year old female with chronic iron deficiency most likely secondary to bleeding from AVMs. She has required recurrent IV iron infusions throughout the last 1.5 years. 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 Rivera at [facility] September 2021 follow-up labs at [facility] with again low iron saturation at 3.5%, ferritin 15 and hemoglobin 6.6. She received 2 doses of Feraheme as well as 2 units PRBCs at [facility] 10/24/2021: She feels much better after receiving IV iron last month. She did nothave any labs drawn this month, but notes a considerable difference in her energy and dyspnea on exertion. She continues with occasional melena. She is concerned that following up every 3 months is too long to wait currently, since she usually is deficient and has to get blood transfusions as well by the time she is evaluated again. I encouraged her to call in anytime she feels that her fatigue and/or dyspnea is worsened, or if she notes increased dark stools and wecan have her seen sooner and get additional labs. 11/24/2021: Improved hemoglobin to 9.4 but still persistent fatigue and iron saturation still 3.9% I recommended repeat infusion of Injectafer 510mg x 2 doses. --Adding Octreotide LAR 20mg IM monthly to prevent recurrent bleeding from AVMs given persistent anemia--she is not on any anticoagulant or antiplatelet therapy. We will have her follow-up in 6 weeks with [facility] and will plan for repeat iron studies and a cbc at that time. She is in agreement with this plan and had no further questions. Moderate complexity for transfer of care and adding Octreotide LAR with iron infusions. 01/05/2022: She continues with fatigue and persistent low counts despite 1 dose ofFeraheme and Octreotide in November. She denies any bleeding anywhere, no melena, and has had no medication changes since her last visit. She had a reaction to the Octreotide and does not want any additional doses. We will plan to replete with additional 2 doses of Feraheme and will follow-up with cbc, iron studies and ferritin in 6 weeks. She is in agreement with this plan and has no additional questions. 02/15/2022: She notes improved fatigue; s/p recent Feraheme x 2 doses on 01/16/2022 and 01/23/2022. Hemoglobin levels improved from 9.1-10.5; iron saturation improved from 5% to 9%; ferritin improved from 23-75. Historically, the patient requires parenteral iron infusion on average every 2-3 months. Clinically, patient is feeling better and reports improved leg pain and improvedfatigue. -Follow-up in 2 months with clinic visit and repeat laboratories; patient knows to call sooner if she experiences any issues prior to scheduled appointment. 06/06/2022: Janine now has recurrent fatigue and dyspnea with exertion. She hasreceived multiple doses of Feraheme over the last 2 years, Injectafer in 2019. She has known history of angiodysplasia but was unable to tolerate octreotide LAR due to cramping abdominal pain. She has not had any visible bright red blood per rectum and most recent EGD/colonoscopy was May 2021 with capsular endoscopy July 2021 confirming angiodysplasia. Due to her persistent symptoms and anemia with hemoglobin 11.7 and iron saturation 13% we will prepareFeraheme 510 mg IV x2 doses over the next 2 weeks. Since she requires frequent surveillance, we will repeat her visit with CBC, serum iron profile, and ferritin in early August to see if she has had recurrent iron deficiency. May continue follow-up with myself and nurse practitioner. 08/09/2022: Janine is here for interval 2 month follow up to review most recent laboratories. Clinically, she is fatigued, chronically. Denies any significant shortness of breath, palpitations, chest pain, melena, hematochezia or BRBPR. Last iron infusion with Feraheme was 2 months ago. As noted previously, she has declined further Octreotide therapy due to intolerable side effects related to first injection given x 1 on 11/30/2021. Most recent laboratories from [facility] dated 08/06/2022 reveal hemoglobin - 10.7; ferritin- 34 and iron saturation - 5.9%. - she continues to require frequent surveillance with need for intravenous iron infusions every 2-3 months. - will arrange for Feraheme replacement today; follow up in ~ 2 months with repeat labs (CBC, iron studies + ferritin)- sooner if new or worsening symptoms. 11/14/2022: She continues with fatigue and dyspnea on exertion. In September was admitted for 2-3 days with anemia at [facility] and received transfusional support. Current labs reveal low iron with saturation 5.2%, ferritin 10 and her hemoglobin is 9.3. We will plan to replete with IV Injectafer (switch from previous Feraheme) and will repeat cbc, cmp and iron studies in 2 months with follow-up. She is in agreement with this plan and has no questions. (2) Angiodysplasia of small intestine Persistent iron deficiency anemia despite multiple iron infusions over the past year. Attempted Octreotide LAR 20mg IM monthly to prevent recurrent bleeding from AVMs documented on capsular endoscopy in 07/2021. 11/30/2021: Given first Octreotide 20 mg LAR IM injection with multiple GI side effects, abdominal pain, nausea, cramping --declines further therapy. She currently has no s/s of bleeding. Will continue repletion with intravenous Feraheme and monitor closely. Given her known AVM in the small intestine she will continue to require frequentiron infusions. She is not taking any anti-inflammatories and is not on any blood thinners. 11/07/2022: She continues to decline Octreotide therapy (3) B12 deficiency She is getting B12 injection monthly with PCP. (4) Hiatal hernia - Time with Patient Time Spent with Patient (Follow Up Visit): 25 minutes Coordination of Care & Counseling Time: Greater than 50% of time spent with patient was for coordination of care (as documented) and [id number] counseling of patient and/or family. Dictated By: Shiela Chan APRN DD/ [id number] Signed By: <Electronically signed by SONIA Chan> 11/14/22 1404 [facility] Work Phone: [phone]) 786-108904-03-2023 Evaluation note* Encounter Date Diagnosis Assessment Notes Treatment Notes Treatment Clinical Notes Nov, Pernicious anemia (ICD-10 - D51.0) [facility] Currently Other 03-22-2023 Evaluation note* Encounter Date Diagnosis Assessment Notes Treatment Notes Treatment Clinical Notes Oct, Essential hypertension (ICD-10 - I10) This patient is instructed to consume a healthy, low-fat, low-salt diet. They are also encouraged to continue exercise to achieve/maintain a normal BMI. Oct, Iron deficiency anemia due to chronic blood loss (ICD-10 - D50.0) Avoid alcohol and NSAIDs Continue PPI f/u Hematology for Fe IV Oct, YARI (generalized anxiety disorder) (ICD-10 - F41.1) Healthy diet and exercise f/u Psych Increase Klonopin to tid for now Oct, Alcohol dependence with alcohol-induced anxiety disorder (ICD-10 - F10.280) Increase Klonopin to tid Start Thiamine Will discuss w/ Dr. Spencer Oct, Other Healthy diet an d exercise and weight loss A1C yearly [facility] [employer] [facility] Currently Other 03-08-2023 Evaluation note* Encounter Date Diagnosis Assessment Notes Treatment Notes Treatment Clinical Notes Oct, Acute blood loss anemia (ICD-10 - D62) Received 3 units PRBC in hospital. Scheduled to see Hematology in couple weeks. Continue Famotidine, refused to take PPI prescribed by Hospitalist. Avoid NSAIDs Instructed to decrease alcohol conumption but patient refused. Oct, IFG (impaired fastin g glucose) (ICD-10 - R73.01) Healthy diet, exercise and weight loss A1C yearly Oct, YARI (generalized anxiety disorder) (ICD-10 - F41.1) Continue healthy diet, exercise and f/u with Psych. Continue medical treatment. Oct, Angiodysplasia (ICD-10 - K55.20) Hx of angiodysplasia, increasing risk of bleeding. Oct, Urge incontinence of urine (ICD-10 - N39.41) Discussed cutting back on fluids and alcohol. Timed voiding through the day. Trial of Oxybutynin but likely won't help. Offered referral to declined Oct, Hiatal hernia (ICD-1 0 - K44.9) Diet instructions: Smaller portions, avoid eating and laying flat, avoid eating or drinking prior to bedtime. Weight loss. Oct, Pernicious anemia (ICD-10 - D51.0) Continue B12 injections Oct, Iron deficiency (ICD-10 - E61.1) f/u with Hematology to monitor Ferritin and determine need for IV Fe Oct, Uncomplicated alcoho l dependence (ICD-10 - F10.20) Counseled on the adverse effects of alcohol. She states that she has nothing else as enjoyable and has stopped trying to quit. Informed her on increased risk of cirrhosis, gastritis, bleeding tendancies etc [email or web address] Other 02-28-2023 Evaluation note* Encounter Date Diagnosis Assessment Notes Treatment Notes Treatment Clinical Notes Sep, Pernicious anemia (ICD-10 - D51.0) [email or web address] Other 01-05-2023 Progress note Author Gertrudis Louis [facility] August 09, 2022 2:19pm Note Date/Time August 09, 2022 2: 03pm [facility] [place] [address] Hem/Onc Follow Up Note - OP Signed Patient: Janine Conde MR#: [id number] : 1950 Acct:[id number] Age/Sex: 71 / F Type: REG RCR Copies to: DO Ricky Jordan MD~ Subjective Date/Time of Service: Date of Service: 08/09/2022 Time of Service: 13:50 Chief Complaint: Patient is here for a 2 month follow up with outside labs for review. No concerns voiced at this time. HPI: 08/09/2022: Janine is here for interval 2 month follow up to review most recent laboratories. Clinically, she is fatigued, chronically. Denies any significant shortness of breath, palpitations, chest pain, melena, hematochezia or BRBPR. Last iron infusion with Feraheme was 2 months ago. As noted previously, she has declined further Octreotide therapy due to intolerable side effects related to first injection given x 1 on 11/30/2021. Most recent laboratories from [facility] dated 08/06/2022 reveal hemoglobin - 10.7; ferritin- 34 and iron saturation - 5.9%. 06/06/2022: Here to review iron studies after her most recent Feraheme infusions in April 2022. I reviewed all of her iron infusions over the last 2 years. She previously received Injectafer 750 mg IV for total of 8 infusions during 2019. During 2020 she received Feraheme twice in January. She had capsule endoscopy with Dr. Elias in July 2021 which confirmed evidence of angiodysplasia. Also on EGD and colonoscopy May 2021 she had a large hiatalhernia with Schatzki's ring and diverticulosis. Recommendation was for trial ofoctreotide LAR in late November 2021 which she tolerated poorly. Since then she received iron infusions 6 times over the last 6 months. She has not had any melena or bright red blood per rectum. She continues to experience fatigue withactivities and her most recent labs at [facility] 06/04/2022 showed hemoglobin 11.7 with serum iron low 42.8, iron saturation 13.4, and ferritin 48. We are preparing iron infusion today with Feraheme 510 mg IV x2 weekly infusions. Since she has required about 3 infusions/year with the last infusiononly 2 months ago, we will repeat her CBC and iron studies in August 2022 although she may return sooner if she has symptomatic anemia. She may follow- upwith Dr. Elias as needed. 02/15/2022: Patient is here for 1 month follow up; s/p repeat Feraheme infusion ~4 weeks ago. On 01/03/2022 her hemoglobin was noted to be 9.1; ferritin 23.0; iron saturation 5%. She was subsequently given 01/16/2022 and 01/23/2022. Repeatlabs indicate modest improvement of hemoglobin from 9.1-10.5; ferritin now 75.0;iron saturation improved to 9%. As noted below, patient has had multiple EGD/colonoscopy procedures and wireless capsule endoscopy x2; with last WCE in July 2021. 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 She did trial a one-time dose of octreotide LAR 20 mg IM on 11/30/2021. She reported very poor tolerance to the injection citing significant abdominal pain, cramping, nausea and vomiting. Clinically, she is doing well and feeling well, in regards to energy levels and fatigue. Will continue close follow up. 01/05/2022: Janine presents for follow-up of her iron deficiency anemia. She continues to be fatigued and gets dyspneic easily on exertion. She denies this at rest, though. She denies dark stool, bright red blood per rectum, hematuria, coffee ground emesis or other sites of bleeding. She denies fevers, chills, sweats, weight loss, abdominal pain, diarrhea or constipation. She did have quite a bit of nausea, vomiting, and abdominal/back cramping and pain after her first dose of octreotide last month. She refuses any additional doses, even withpremedications offered. She only received 1 dose of Feraheme at that time. On review, her labs from [facility] reveal hgb 9.0 and iron saturation 5%. We will plan for repeat Feraheme x 2 doses and will follow-up in 6 weeks again for repeat labs 11/24/2021: She is here for follow-up today and transfer of followup (previouslyfollowed by Dr. Anam Abarca). She reports improved energy since most recent RBC transfusion and iron infusions at [place] but persistent fatigue. She still has episodes of light-headedness. She denies vertiginous symptoms and is okay driving. She denies fevers, chills, night sweats or unexplained weight loss. She admits to small amounts of blood in the stool but has a history of hemorrhoids. She has been on chronic PPI therapy for many years and takes it daily. She is on B12 supplementation. Her CBC from 10/2021 revealed a HGB of 7.7 g/dL, MCV 74, RDW 21%. No iron panel was reported. Labs from [place] 11/22/2021 with improved hemoglobin to 9.4 but still low iron saturation 3.9% and ferritin 20. 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 Followup with [facility] in 6 weeks to review iron studies after Feraheme 510mg x 2 doses and Octreotide LAR 20mg IM monthly. 04/28/21 (Dr. Anam Abarca) feels ok today, energy stable denies any bleeding, denies ice cravings continues to take PPI daily, hemorrhoids under control denies any lightheadedness iron continues to be low, so will recommend updated scopes 10/24/2021 (YAZAN Chan) her energy is much improved after receiving Feraheme in September at [facility] she has her labs done at [facility] as well, none done this month for review she continues to note melena on occasion, not every day last colonoscopy and EGD done 05/15/21 revealing large hiatal hernia, hemorrhoids and Schatzki's Ring. She had a capsule endoscopy done 07/05/21 that showed angioectasia small bowel she denies any recent bleeding from hemorrhoids, these are well controlled she feels well overall without complaints beyond the continued melena - Summary of Therapies Summary of Therapies: IV Iron with Injectafer, 12/2019, 02/2020, 06/2020, 09/2020, 09/2021--1 U RBC transfused and Feraheme 11/2021--ordered Feraheme and Octreotide LAR. Only received 1 dose of Feraheme. She had nausea, vomiting, cramping and abdominal + back pain with the octreotide, declines further therapy. Feraheme 510 mg IV x 2 doses: 01/16/2022 and 01/23/2022 04/24/2022 and 05/01/2022 06/14/2022 and 06/21/2022 Ordered 2 doses 08/09/2022 ROS Details: All systems reviewed & no additional complaints except as documented Subjective/ROS - Narrative: CONSTITUTIONAL: Fevers [-], Chills [-], Night sweats [-], Weight Loss [-], Hot Flashes [-], Fatigue [+] recurrent after iron infusions 2 months ago HEENT: Changes in Vision [-], Changes in Hearing [-], Eye Pain [-], Ear Pain [- ], Mouth Sores [-], Change in Taste [-], Sore Throat [-], Hoarseness [-] CARDIOVASCULAR: Palpitations [-], Chest Pain [-], Chest Tightness [-], Swellingin Extremities [-] RESPIRATORY: Cough [-], Shortness of Breath [-], Dyspnea on Exertion [+], Wheezing [-] GASTROINTESTINAL: Abdominal Pain [-], Diarrhea [-], Constipation [-], Nausea [- ], Vomiting [-], Early Satiety [-], No visible Hematochezia [-], Melena [-] LYMPHATIC: Swollen Glands [-], Enlarged Lymph Nodes [-] INTEGUMENTARY: Rashes [-], Nodules [-], Ulcers [-], Blisters [-], Pigmentation Changes [-] HEMATOLOGIC: Easy Bruising [-], Gum Bleeding [-], Epistaxis [-], Prolonged Bleeding [-], Heavy Menses [-] GENITOURINARY: Hematuria [-], Difficulty Voiding [-], Pain with Voiding [-], Frequent Voiding [-] NEUROLOGIC: Numbness [-], Tingling [-], Altered Gait [-], Muscle Weakness [-], Lightheadedness [persists after recent transfusions/iron] MUSCULOSKELETAL: Muscle Pain [-], Bone Pain [-], Joint Pain [-] PSYCHIATRIC: Depressed Mood [-], Anxiety [-], Stressed [-] [facility] - Medical History Medical History: Medical History (Last Reviewed 06/06/22 @ 10:20 by Taina Toussaint MD) Anemia Anxiety Depression GERD (gastroesophageal reflux disease) - Surgical History Surgical History: Surgical History (Last Reviewed 06/06/22 @ 10:20 by Taina Toussaint MD) H/O: hysterectomy History of bunionectomy Hx of cholecystectomy - Family History Family History: Family History (Last Reviewed 06/06/22 @ 10:20 by Taina Toussaint MD) Son No problems noted. Mother Pancreatitis Diabetes Father Emphysema of lung - Social History Smoking Status: Former smoker Tobacco Type: cigarettes Substance Use Type: None Home Medications & Allergies Allergies No Known Allergies Allergy (Verified 06/06/22 09:58) Home Medications trazodone 100 mg tablet 1 tab PO HS 06/20/19 [History Confirmed 08/09/22] venlafaxine 150 mg capsule,extended release 24 hr 150 mg PO DAILY 06/20/19 [History Confirmed 08/09/22] clonazepam 0.5 mg tablet 0.5 mg PO BID #0 tabs 06/23/19 [Rx Confirmed 08/09/22] buspirone 5 mg tablet 5 mg PO BID 06/22/21 [History Confirmed 08/09/22] Objective - Resuscitation Status Resuscitation Status: Full Code - Height/Weight Height/Weight: Height 5 ft 6 in Weight 113.8 kg BSA for Today's Weight 2.38 - Vital Signs Vital Signs: 08/09/22 13:08 Temperature 97.8 F Pulse Rate [Left Brachial] 101 H Respiratory Rate 18 Blood Pressure [Left Arm] 107/65 02 Sat by Pulse Oximetry 98 Oxygen Delivery Method Room Air - Pain Bilateral Leg Pain Intensity: 0 Physical Exam Narrative: ECOG PS: 0 General : patient is alert and oriented to person place and time, no acute distress. HEENT: no scleral icterus, no oral lesions Neck: no JVD or thyromegaly. Lymph: no cervical, supraclavicular, axillary adenopathy. Heart: regular rate and rhythm no murmurs rubs or gallops. Abdomen: soft nontender nondistended, no hepatosplenomegaly. Lungs: clear to auscultation bilaterally. No wheezes, rales, rhonchi. Extremities: no clubbing cyanosis. No edema - ECOG Performance Status ECOG Score: 0 Results - Labs Labs: Diagram of Most Recent CBC and CMP 01/19/21 09:05 01/01/20 11:27 Assessment and Plan (1) Iron deficiency anemia Qualifiers: Iron deficiency anemia type: other iron deficiency Qualified Code(s): D50.8- Other iron deficiency anemias 71 year old female with chronic iron deficiency most likely secondary to bleeding from AVMs. She has required recurrent IV iron infusions throughout the last 1.5 years. 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 Rivera at [facility] September 2021 follow-up labs at [facility] with again low iron saturation at 3.5%, ferritin 15 and hemoglobin 6.6. She received 2 doses of Feraheme as well as 2 units PRBCs at [facility] 10/24/2021: She feels much better after receiving IV iron last month. She did nothave any labs drawn this month, but notes a considerable difference in her energy and dyspnea on exertion. She continues with occasional melena. She is concerned that following up every 3 months is too long to wait currently, since she usually is deficient and has to get blood transfusions as well by the time she is evaluated again. I encouraged her to call in anytime she feels that her fatigue and/or dyspnea is worsened, or if she notes increased dark stools and wecan have her seen sooner and get additional labs. 11/24/2021: Improved hemoglobin to 9.4 but still persistent fatigue and iron saturation still 3.9% I recommended repeat infusion of Injectafer 510mg x 2 doses. --Adding Octreotide LAR 20mg IM monthly to prevent recurrent bleeding from AVMs given persistent anemia--she is not on any anticoagulant or antiplatelet therapy. We will have her follow-up in 6 weeks with [facility] and will plan for repeat iron studies and a cbc at that time. She is in agreement with this plan and had no further questions. Moderate complexity for transfer of care and adding Octreotide LAR with iron infusions. 01/05/2022: She continues with fatigue and persistent low counts despite 1 dose ofFeraheme and Octreotide in November. She denies any bleeding anywhere, no melena, and has had no medication changes since her last visit. She had a reaction to the Octreotide and does not want any additional doses. We will plan to replete with additional 2 doses of Feraheme and will follow-up with cbc, iron studies and ferritin in 6 weeks. She is in agreement with this plan and has no additional questions. 02/15/2022: She notes improved fatigue; s/p recent Feraheme x 2 doses on 01/16/2022 and 01/23/2022. Hemoglobin levels improved from 9.1-10.5; iron saturation improved from 5% to 9%; ferritin improved from 23-75. Historically, the patient requires parenteral iron infusion on average every 2-3 months. Clinically, patient is feeling better and reports improved leg pain and improvedfatigue. -Follow-up in 2 months with clinic visit and repeat laboratories; patient knows to call sooner if she experiences any issues prior to scheduled appointment. 06/06/2022: Janine now has recurrent fatigue and dyspnea with exertion. She hasreceived multiple doses of Feraheme over the last 2 years, Injectafer in 2019. She has known history of angiodysplasia but was unable to tolerate octreotide LAR due to cramping abdominal pain. She has not had any visible bright red blood per rectum and most recent EGD/colonoscopy was May 2021 with capsular endoscopy July 2021 confirming angiodysplasia. Due to her persistent symptoms and anemia with hemoglobin 11.7 and iron saturation 13% we will prepareFeraheme 510 mg IV x2 doses over the next 2 weeks. Since she requires frequent surveillance, we will repeat her visit with CBC, serum iron profile, and ferritin in early August to see if she has had recurrent iron deficiency. May continue follow-up with myself and nurse practitioner. 08/09/2022: Janine is here for interval 2 month follow up to review most recent laboratories. Clinically, she is fatigued, chronically. Denies any significant shortness of breath, palpitations, chest pain, melena, hematochezia or BRBPR. Last iron infusion with Feraheme was 2 months ago. As noted previously, she has declined further Octreotide therapy due to intolerable side effects related to first injection given x 1 on 11/30/2021. Most recent laboratories from [facility] dated 08/06/2022 reveal hemoglobin - 10.7; ferritin- 34 and iron saturation - 5.9%. - she continues to require frequent surveillance with need for intravenous iron infusions every 2-3 months. - will arrange for Feraheme replacement today; follow up in ~ 2 months with repeat labs (CBC, iron studies + ferritin)- sooner if new or worsening symptoms. (2) Angiodysplasia of small intestine Persistent iron deficiency anemia despite multiple iron infusions over the past year. Attempted Octreotide LAR 20mg IM monthly to prevent recurrent bleeding from AVMs documented on capsular endoscopy in 07/2021. 11/30/2021: Given first Octreotide 20 mg LAR IM injection with multiple GI side effects, abdominal pain, nausea, cramping --declines further therapy. She currently has no s/s of bleeding. Will continue repletion with intravenous Feraheme and monitor closely. iven her known AVM in the small intestine she will continue to require frequent iron infusions. She is not taking any anti-inflammatories and is not on any blood thinners. (3) B12 deficiency She is getting B12 injection monthly with PCP. (4) Hiatal hernia - Time with Patient Time Spent with Patient (Follow Up Visit): 25 minutes Coordination of Care & Counseling Time: Greater than 50% of time spent with patient was for coordination of care (as documented) and [id number] counseling of patient and/or family. Dictated By: Gertrudis Louis APRN DD/ [id number] Signed By: <Electronically signed by SONIA Louis> 08/09/22 1417 [facility] Work Phone: [phone]) 279-705611-02-2022 Progress note Author Taina Toussaint [facility] June 06, 2022 10:30am Note Date/Time June 06, 2022 1 0:03am [facility] [place] [address] Hem/Onc Follow Up Note - OP Signed Patient: Janine Conde MR#: [id number] : 1950 Acct:[id number] Age/Sex: 71 / F Type: REG RCR Copies to: DO Ricky Jordan MD~ Subjective Date/Time of Service: Date of Service: 06/06/2022 Time of Service: 10:02 Chief Complaint: Patient is here today for a 4 month follow up visit for iron deficiency anemia and go over outside labs HPI: 06/06/2022: I previously saw this patient in December and the last 2 visit she followed up with a nurse practitioner. She is here to review iron studies afterher most recent Feraheme infusions in April 2022. I reviewed all of her iron infusions over the last 2 years. She previously received Injectafer 750 mgIV for total of 8 infusions during 2019. During 2020 she received Feraheme twice in January. She had capsule endoscopy with Dr. Elias in July 2021 which confirmed evidence of angiodysplasia. Also on EGD and colonoscopy May2021 she had a large hiatal hernia with Schatzki's ring and diverticulosis. Recommendation was for trial of octreotide LAR in late November 2021 which she tolerated poorly. Since then she received iron infusions 6 times over the last 6 months. She has not had any melena or bright red blood per rectum. She continues to experience fatigue with activities and her most recent labs at [facility] 06/04/2022 showed hemoglobin 11.7 with serum iron low 42.8, iron saturation 13.4, and ferritin 48. We are preparing iron infusion today with Feraheme 510 mg IV x2 weekly infusions. Since she has required about 3 infusions/year with the last infusion only 2 months ago, we will repeat her CBC and iron studies in August 2022 although she may return sooner if she has symptomatic anemia. She may follow-up with Dr. Elias as needed. Moderate complexity visit over 30 minutes to review recent history of iron infusions 02/15/2022: Patient is here for 1 month follow up; s/p repeat Feraheme infusion ~4 weeks ago. On 01/03/2022 her hemoglobin was noted to be 9.1; ferritin 23.0; iron saturation 5%. She was subsequently given 01/16/2022 and 01/23/2022. Repeatlabs indicate modest improvement of hemoglobin from 9.1-10.5; ferritin now 75.0;iron saturation improved to 9%. As noted below, patient has had multiple EGD/colonoscopy procedures and wireless capsule endoscopy x2; with last WCE in July 2021. 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 She did trial a one-time dose of octreotide LAR 20 mg IM on 11/30/2021. She reported very poor tolerance to the injection citing significant abdominal pain, cramping, nausea and vomiting. Clinically, she is doing well and feeling well, in regards to energy levels and fatigue. Will continue close follow up. 01/05/2022: Janine presents for follow-up of her iron deficiency anemia. She continues to be fatigued and gets dyspneic easily on exertion. She denies this at rest, though. She denies dark stool, bright red blood per rectum, hematuria, coffee ground emesis or other sites of bleeding. She denies fevers, chills, sweats, weight loss, abdominal pain, diarrhea or constipation. She did have quite a bit of nausea, vomiting, and abdominal/back cramping and pain after her first dose of octreotide last month. She refuses any additional doses, even withpremedications offered. She only received 1 dose of Feraheme at that time. On review, her labs from [facility] reveal hgb 9.0 and iron saturation 5%. We will plan for repeat Feraheme x 2 doses and will follow-up in 6 weeks again for repeat labs 11/24/2021: She is here for follow-up today and transfer of followup (previouslyfollowed by Dr. Anam Abarca). She reports improved energy since most recent RBC transfusion and iron infusions at [place] but persistent fatigue. She still has episodes of light-headedness. She denies vertiginous symptoms and is okay driving. She denies fevers, chills, night sweats or unexplained weight loss. She admits to small amounts of blood in the stool but has a history of hemorrhoids. She has been on chronic PPI therapy for many years and takes it daily. She is on B12 supplementation. Her CBC from 10/2021 revealed a HGB of 7.7 g/dL, MCV 74, RDW 21%. No iron panel was reported. Labs from [place] 11/22/2021 with improved hemoglobin to 9.4 but still low iron saturation 3.9% and ferritin 20. 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 Followup with [facility] in 6 weeks to review iron studies after Feraheme 510mg x 2 doses and Octreotide LAR 20mg IM monthly. 04/28/21 (Dr. Anam Abarca) feels ok today, energy stable denies any bleeding, denies ice cravings continues to take PPI daily, hemorrhoids under control denies any lightheadedness iron continues to be low, so will recommend updated scopes 10/24/2021 (YAZAN Chan) her energy is much improved after receiving Feraheme in September at [facility] she has her labs done at [facility] as well, none done this month for review she continues to note melena on occasion, not every day last colonoscopy and EGD done 05/15/21 revealing large hiatal hernia, hemorrhoids and Schatzki's Ring. She had a capsule endoscopy done 07/05/21 that showed angioectasia small bowel she denies any recent bleeding from hemorrhoids, these are well controlled she feels well overall without complaints beyond the continued melena - Summary of Therapies Summary of Therapies: IV Iron with Injectafer, 12/2019, 02/2020, 06/2020, 09/2020, 09/2021--1 U RBC transfused and Feraheme 11/2021--ordered Feraheme and Octreotide LAR. Only received 1 dose of Feraheme. She had nausea, vomiting, cramping and abdominal + back pain with the octreotide, declines further therapy 01/16/2022 and 01/23/2022; 04/24 and 05/01: Total 4 doses of Feraheme. Ordered 2 more infusions for early June 2022. ROS Details: All systems reviewed & no additional complaints except as documented Subjective/ROS - Narrative: CONSTITUTIONAL: Fevers [-], Chills [-], Night sweats [-], Weight Loss [-], Hot Flashes [-], Fatigue [+] recurrent after iron infusions 2 months ago HEENT: Changes in Vision [-], Changes in Hearing [-], Eye Pain [-], Ear Pain [- ], Mouth Sores [-], Change in Taste [-], Sore Throat [-], Hoarseness [-] CARDIOVASCULAR: Palpitations [-], Chest Pain [-], Chest Tightness [-], Swellingin Extremities [-] RESPIRATORY: Cough [-], Shortness of Breath [-], Dyspnea on Exertion [+], Wheezing [-] GASTROINTESTINAL: Abdominal Pain [-], Diarrhea [-], Constipation [-], Nausea [- ], Vomiting [-], Early Satiety [-], No visible Hematochezia [-], Melena [-] LYMPHATIC: Swollen Glands [-], Enlarged Lymph Nodes [-] INTEGUMENTARY: Rashes [-], Nodules [-], Ulcers [-], Blisters [-], Pigmentation Changes [-] HEMATOLOGIC: Easy Bruising [-], Gum Bleeding [-], Epistaxis [-], Prolonged Bleeding [-], Heavy Menses [-] GENITOURINARY: Hematuria [-], Difficulty Voiding [-], Pain with Voiding [-], Frequent Voiding [-] NEUROLOGIC: Numbness [-], Tingling [-], Altered Gait [-], Muscle Weakness [-], Lightheadedness [persists after recent transfusions/iron] MUSCULOSKELETAL: Muscle Pain [-], Bone Pain [-], Joint Pain [-] PSYCHIATRIC: Depressed Mood [-], Anxiety [-], Stressed [-] PMFSH - History Attestation statement: The following information was validated with the patient. Source: Old Records Reviewed - Medical History Medical History: Medical History (Last Reviewed 06/06/22 @ 10:20 by Taina Toussaint MD) Anemia Anxiety Depression GERD (gastroesophageal reflux disease) - Surgical History Surgical History: Surgical History (Last Reviewed 06/06/22 @ 10:20 by Taina Toussaint MD) H/O: hysterectomy History of bunionectomy Hx of cholecystectomy - Family History Family History: Family History (Last Reviewed 06/06/22 @ 10:20 by Taina Toussaint MD) Son No problems noted. Mother Pancreatitis Diabetes Father Emphysema of lung - Social History Smoking Status: Former smoker Tobacco Type: cigarettes Substance Use Type: None Home Medications & Allergies Allergies No Known Allergies Allergy (Verified 06/06/22 09:58) Home Medications trazodone 100 mg tablet 1 tab PO HS 06/20/19 [History Confirmed 06/06/22] venlafaxine 150 mg capsule,extended release 24 hr 150 mg PO DAILY 06/20/19 [History Confirmed 06/06/22] clonazepam 0.5 mg tablet 0.5 mg PO BID #0 tabs 06/23/19 [Rx Confirmed 06/06/22] buspirone 5 mg tablet 5 mg PO BID 06/22/21 [History Confirmed 06/06/22] Objective - Height/Weight Height/Weight: Height 5 ft 6 in Weight 112.491 kg BSA for Today's Weight 2.38 - Vital Signs Vital Signs: 06/06/22 09:59 Temperature 97.8 F Pulse Rate [Left Brachial] 109 H Respiratory Rate 16 Blood Pressure [Left Arm] 128/80 02 Sat by Pulse Oximetry 97 Oxygen Delivery Method Room Air - Pain Bilateral Leg Pain Intensity: 0 Physical Exam Narrative: ECOG PS: 0 General : patient is alert and oriented to person place and time, no acute distress. HEENT: no scleral icterus, no oral lesions Neck: no JVD or thyromegaly. Lymph: no cervical, supraclavicular, axillary adenopathy. Heart: regular rate and rhythm no murmurs rubs or gallops. Abdomen: soft nontender nondistended, no hepatosplenomegaly. Lungs: clear to auscultation bilaterally. No wheezes, rales, rhonchi. Extremities: no clubbing cyanosis. No edema - ECOG Performance Status ECOG Score: 1 - Fatigue and dyspnea on exertion Results - Labs Labs: Diagram of Most Recent CBC and CMP 01/19/21 09:05 01/01/20 11:27 Outside Labs: 06/04/2022 labs at [facility]: White blood cells 5800, hemoglobin 11.7, hematocrit 30.4, mean corpuscular volume 88.5, RDW elevated 19.3, platelet count 324,000, absolute neutrophil count 3900 Total protein 7, total bilirubin 0.6, Sodium 139, potassium 4, BUN 13, creatinine 0.88, calcium 8.9, ALT 19, AST 12, alkaline phosphatase 97, albumin 3.4 Serum iron 42, iron saturation 13.4, ferritin 40 - Impressions No recent imaging for review. Assessment and Plan (1) Iron deficiency anemia Qualifiers: Iron deficiency anemia type: other iron deficiency Qualified Code(s): D50.8- Other iron deficiency anemias 71 year old female with chronic iron deficiency most likely secondary to bleeding from AVMs. She has required recurrent IV iron infusions throughout the last 1.5 years. 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 Rivera at [facility] September 2021 follow-up labs at [facility] with again low iron saturation at 3.5%, ferritin 15 and hemoglobin 6.6. She received 2 doses of Feraheme as well as 2 units PRBCs at [facility] 10/24/2021: She feels much better after receiving IV iron last month. She did nothave any labs drawn this month, but notes a considerable difference in her energy and dyspnea on exertion. She continues with occasional melena. She is concerned that following up every 3 months is too long to wait currently, since she usually is deficient and has to get blood transfusions as well by the time she is evaluated again. I encouraged her to call in anytime she feels that her fatigue and/or dyspnea is worsened, or if she notes increased dark stools and wecan have her seen sooner and get additional labs. 11/24/2021: Improved hemoglobin to 9.4 but still persistent fatigue and iron saturation still 3.9% I recommended repeat infusion of Injectafer 510mg x 2 doses. --Adding Octreotide LAR 20mg IM monthly to prevent recurrent bleeding from AVMs given persistent anemia--she is not on any anticoagulant or antiplatelet therapy. We will have her follow-up in 6 weeks with [facility] and will plan for repeat iron studies and a cbc at that time. She is in agreement with this plan and had no further questions. Moderate complexity for transfer of care and adding Octreotide LAR with iron infusions. 01/05/2022: She continues with fatigue and persistent low counts despite 1 dose ofFeraheme and Octreotide in November. She denies any bleeding anywhere, no melena, and has had no medication changes since her last visit. She had a reaction to the Octreotide and does not want any additional doses. We will plan to replete with additional 2 doses of Feraheme and will follow-up with cbc, iron studies and ferritin in 6 weeks. She is in agreement with this plan and has no additional questions. 02/15/2022: She notes improved fatigue; s/p recent Feraheme x 2 doses on 01/16/2022 and 01/23/2022. Hemoglobin levels improved from 9.1-10.5; iron saturation improved from 5% to 9%; ferritin improved from 23-75. Historically, the patient requires parenteral iron infusion on average every 2-3 months. Clinically, patient is feeling better and reports improved leg pain and improvedfatigue. -Follow-up in 2 months with clinic visit and repeat laboratories; patient knows to call sooner if she experiences any issues prior to scheduled appointment. 06/06/2022: Janine now has recurrent fatigue and dyspnea with exertion. She hasreceived multiple doses of Feraheme over the last 2 years, Injectafer in 2019. She has known history of angiodysplasia but was unable to tolerate octreotide LAR due to cramping abdominal pain. She has not had any visible bright red blood per rectum and most recent EGD/colonoscopy was May 2021 with capsular endoscopy July 2021 confirming angiodysplasia. Due to her persistent symptoms and anemia with hemoglobin 11.7 and iron saturation 13% we will prepareFeraheme 510 mg IV x2 doses over the next 2 weeks. Since she requires frequent surveillance, we will repeat her visit with CBC, serum iron profile, and ferritin in early August to see if she has had recurrent iron deficiency. May continue follow-up with myself and nurse practitioner. Moderate complexity 30-minute follow-up. (2) Angiodysplasia of small intestine Persistent iron deficiency anemia despite multiple iron infusions over the past year. Adding Octreotide LAR 20mg IM monthly to prevent recurrent bleeding from AVMs documented on capsular endoscopy in 07/2021. 01/05/2022: She did not tolerate her first Octreotide injection and declines additional therapy. She currently has no s/s of bleeding. 02/15/2022, -: Will continue repletion of Feraheme and re-evaluate. Given herknown AVM in the small intestine she will continue to require frequent iron infusions. She is not taking any anti-inflammatories and is not on any blood thinners. (3) B12 deficiency She is getting B12 injection monthly with PCP. (4) Hiatal hernia - Time with Patient Time Spent with Patient (Follow Up Visit): 35 minutes - Moderate complexity to review all prior iron infusions, coordinate further Feraheme, discuss surveillance plan due to persistent iron deficiency anemia with angiodysplasia Coordination of Care & Counseling Time: Greater than 50% of time spent with patient was for coordination of care (as documented) and [id number] counseling of patient and/or family. Dictated By: Taina Toussaint MD DD/ 1002 Signed By: <Electronically signed by MD Taina Toussaint> 06/06/22 10[address] [facility] Work Phone: [phone]) 840-116107-14-2022 Progress note Author Gertrudis Louis [facility] February 15, 2022 2:17pm Note Date/Time February 15, 2022 2:10 pm [facility] at [address] [address] Hem/Onc Follow Up Note - OP Signed Patient: Janine Conde MR#: [id number] : 1950 Acct:[id number] Age/Sex: 71 / F Type: REG RCR Copies to: DO Ricky Jordan MD~ Subjective Date/Time of Service: Date of Service: 02/15/2022 Time of Service: 14:09 Chief Complaint: Patient is here for a 6 week follow up with outside labs for review. No concerns voiced. HPI: 02/15/2022: Patient is here for 1 month follow up; s/p repeat Feraheme infusion ~4 weeks ago. On 01/03/2022 her hemoglobin was noted to be 9.1; ferritin 23.0; iron saturation 5%. She was subsequently given 01/16/2022 and 01/23/2022. Repeatlabs indicate modest improvement of hemoglobin from 9.1-10.5; ferritin now 75.0;iron saturation improved to 9%. As noted below, patient has had multiple EGD/colonoscopy procedures and wireless capsule endoscopy x2; with last WCE in July 2021. 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 She did trial a one-time dose of octreotide LAR 20 mg IM on 11/30/2021. She reported very poor tolerance to the injection citing significant abdominal pain, cramping, nausea and vomiting. Clinically, she is doing well and feeling well, in regards to energy levels and fatigue. Will continue close follow up. 01/05/2022: Janine presents for follow-up of her iron deficiency anemia. She continues to be fatigued and gets dyspneic easily on exertion. She denies this at rest, though. She denies dark stool, bright red blood per rectum, hematuria, coffee ground emesis or other sites of bleeding. She denies fevers, chills, sweats, weight loss, abdominal pain, diarrhea or constipation. She did have quite a bit of nausea, vomiting, and abdominal/back cramping and pain after her first dose of octreotide last month. She refuses any additional doses, even withpremedications offered. She only received 1 dose of Feraheme at that time. On review, her labs from [facility] reveal hgb 9.0 and iron saturation 5%. We will plan for repeat Feraheme x 2 doses and will follow-up in 6 weeks again for repeat labs 11/24/2021: She is here for follow-up today and transfer of followup (previouslyfollowed by Dr. Anam Abarca). She reports improved energy since most recent RBC transfusion and iron infusions at [place] but persistent fatigue. She still has episodes of light-headedness. She denies vertiginous symptoms and is okay driving. She denies fevers, chills, night sweats or unexplained weight loss. She admits to small amounts of blood in the stool but has a history of hemorrhoids. She has been on chronic PPI therapy for many years and takes it daily. She is on B12 supplementation. Her CBC from 10/2021 revealed a HGB of 7.7 g/dL, MCV 74, RDW 21%. No iron panel was reported. Labs from [place] 11/22/2021 with improved hemoglobin to 9.4 but still low iron saturation 3.9% and ferritin 20. 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 Followup with [facility] in 6 weeks to review iron studies after Feraheme 510mg x 2 doses and Octreotide LAR 20mg IM monthly. 04/28/21 (Dr. Anam Abarca) feels ok today, energy stable denies any bleeding, denies ice cravings continues to take PPI daily, hemorrhoids under control denies any lightheadedness iron continues to be low, so will recommend updated scopes 10/24/2021 (YAZAN Chan) her energy is much improved after receiving Feraheme in September at [facility] she has her labs done at [facility] as well, none done this month for review she continues to note melena on occasion, not every day last colonoscopy and EGD done 05/15/21 revealing large hiatal hernia, hemorrhoids and Schatzki's Ring. She had a capsule endoscopy done 07/05/21 that showed angioectasia small bowel she denies any recent bleeding from hemorrhoids, these are well controlled she feels well overall without complaints beyond the continued melena - Summary of Therapies Summary of Therapies: IV Iron with Injectafer, 12/2019, 02/2020, 06/2020, 09/2020, 09/2021--1 U RBC transfused and Feraheme 11/2021--ordered Feraheme and Octreotide LAR. Only received 1 dose of Feraheme. She had nausea, vomiting, cramping and abdominal + back pain with the octreotide, declines further therapy 01/16/2022 and 01/23/2022: 2 doses of Feraheme. ROS Details: All systems reviewed & no additional complaints except as documented Subjective/ROS - Narrative: CONSTITUTIONAL: Fevers [-], Chills [-], Night sweats [-], Weight Loss [-], Hot Flashes [-], Fatigue [+] but improved HEENT: Changes in Vision [-], Changes in Hearing [-], Eye Pain [-], Ear Pain [- ], Mouth Sores [-], Change in Taste [-], Sore Throat [-], Hoarseness [-] CARDIOVASCULAR: Palpitations [-], Chest Pain [-], Chest Tightness [-], Swellingin Extremities [-] RESPIRATORY: Cough [-], Shortness of Breath [-], Dyspnea on Exertion [-], Wheezing [-] GASTROINTESTINAL: Abdominal Pain [-], Diarrhea [-], Constipation [-], Nausea [- ], Vomiting [-], Early Satiety [-], No visible Hematochezia [-], Melena [-] LYMPHATIC: Swollen Glands [-], Enlarged Lymph Nodes [-] INTEGUMENTARY: Rashes [-], Nodules [-], Ulcers [-], Blisters [-], Pigmentation Changes [-] HEMATOLOGIC: Easy Bruising [-], Gum Bleeding [-], Epistaxis [-], Prolonged Bleeding [-], Heavy Menses [-] GENITOURINARY: Hematuria [-], Difficulty Voiding [-], Pain with Voiding [-], Frequent Voiding [-] NEUROLOGIC: Numbness [-], Tingling [-], Altered Gait [-], Muscle Weakness [-], Lightheadedness [persists after recent transfusions/iron] MUSCULOSKELETAL: Muscle Pain [-], Bone Pain [-], Joint Pain [-] PSYCHIATRIC: Depressed Mood [-], Anxiety [-], Stressed [-] PMFSH - Medical History Medical History: Medical History (Last Reviewed 11/25/21 @ 09:39 by Taina Toussaint MD) Anemia Anxiety Depression GERD (gastroesophageal reflux disease) - Surgical History Surgical History: Surgical History (Last Reviewed 11/25/21 @ 09:39 by Taina Toussaint MD) H/O: hysterectomy History of bunionectomy Hx of cholecystectomy - Family History Family History: Family History (Last Reviewed 11/25/21 @ 09:39 by Taina Toussaint MD) Son No problems noted. Mother Pancreatitis Diabetes Father Emphysema of lung - Social History Smoking Status: Former smoker Tobacco Type: cigarettes Substance Use Type: None Home Medications & Allergies Allergies No Known Allergies Allergy (Verified 01/23/22 15:54) Home Medications trazodone 100 mg tablet 1 tab PO HS 06/20/19 [History Confirmed 02/15/22] venlafaxine 150 mg capsule,extended release 24 hr 150 mg PO DAILY 06/20/19 [History Confirmed 02/15/22] clonazepam 0.5 mg tablet 0.5 mg PO BID #0 tab 06/23/19 [Rx Confirmed 02/15/22] buspirone 5 mg tablet 5 mg PO BID 06/22/21 [History Confirmed 02/15/22] Objective - Resuscitation Status Resuscitation Status: Full Code - Height/Weight Height/Weight: Height 5 ft 6 in Weight 112.355 kg BSA for Today's Weight 2.38 - Vital Signs Vital Signs: 02/15/22 13:36 Temperature 98.4 F Pulse Rate [Left Brachial] 85 Respiratory Rate 20 Blood Pressure [Left Arm] 126/66 02 Sat by Pulse Oximetry 99 - Pain Bilateral Leg Pain Intensity: 0 Physical Exam Narrative: ECOG PS: 0 General : patient is alert and oriented to person place and time, no acute distress. HEENT: no scleral icterus, no oral lesions Neck: no JVD or thyromegaly. Lymph: no cervical, supraclavicular, axillary adenopathy. Heart: regular rate and rhythm no murmurs rubs or gallops. Abdomen: soft nontender nondistended, no hepatosplenomegaly. Lungs: clear to auscultation bilaterally. No wheezes, rales, rhonchi. Extremities: no clubbing cyanosis. No edema Results - Labs Labs: Diagram of Most Recent CBC and CMP 01/19/21 09:05 01/01/20 11:27 Assessment and Plan (1) Iron deficiency anemia Qualifiers: Iron deficiency anemia type: other iron deficiency Qualified Code(s): D50.8- Other iron deficiency anemias 71 year old female with chronic iron deficiency most likely secondary to bleeding from AVMs. She has required recurrent IV iron infusions throughout the last 1.5 years. 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 Rivera at [facility] September 2021 follow-up labs at [facility] with again low iron saturation at 3.5%, ferritin 15 and hemoglobin 6.6. She received 2 doses of Feraheme as well as 2 units PRBCs at [facility] 10/24/2021: She feels much better after receiving IV iron last month. She did nothave any labs drawn this month, but notes a considerable difference in her energy and dyspnea on exertion. She continues with occasional melena. She is concerned that following up every 3 months is too long to wait currently, since she usually is deficient and has to get blood transfusions as well by the time she is evaluated again. I encouraged her to call in anytime she feels that her fatigue and/or dyspnea is worsened, or if she notes increased dark stools and wecan have her seen sooner and get additional labs. 11/24/2021: Improved hemoglobin to 9.4 but still persistent fatigue and iron saturation still 3.9% I recommended repeat infusion of Injectafer 510mg x 2 doses. --Adding Octreotide LAR 20mg IM monthly to prevent recurrent bleeding from AVMs given persistent anemia--she is not on any anticoagulant or antiplatelet therapy. We will have her follow-up in 6 weeks with [facility] and will plan for repeat iron studies and a cbc at that time. She is in agreement with this plan and had no further questions. Moderate complexity for transfer of care and adding Octreotide LAR with iron infusions. 01/05/2022: She continues with fatigue and persistent low counts despite 1 dose ofFeraheme and Octreotide in November. She denies any bleeding anywhere, no melena, and has had no medication changes since her last visit. She had a reaction to the Octreotide and does not want any additional doses. We will plan to replete with additional 2 doses of Feraheme and will follow-up with cbc, iron studies and ferritin in 6 weeks. She is in agreement with this plan and has no additional questions. 02/15/2022: She notes improved fatigue; s/p recent Feraheme x 2 doses on X 2021 and 01/23/2022. Hemoglobin levels improved from 9.1-10.5; iron saturation improved from 5% to 9%; ferritin improved from 23-75. Historically, the patientrequires parenteral iron infusion on average every 2-3 months. Clinically, patient is feeling better and reports improved leg pain and improved fatigue. -Follow-up in 2 months with clinic visit and repeat laboratories; patient knows to call sooner if she experiences any issues prior to scheduled appointment. (2) Angiodysplasia of small intestine Persistent iron deficiency anemia despite multiple iron infusions over the past year. Adding Octreotide LAR 20mg IM monthly to prevent recurrent bleeding from AVMs documented on capsular endoscopy in 07/2021. 01/05/2022: She did not tolerate her first Octreotide injection and declines additional therapy. She currently has no s/s of bleeding. 02/15/2022: Will continue repletion of Feraheme and re-evaluate. Given her known AVM in the small intestine she will likely require frequent iron infusions. She is not taking any anti-inflammatories and is not on any blood thinners. (3) B12 deficiency She is getting B12 injection monthly with PCP. (4) Hiatal hernia - Time with Patient Time Spent with Patient (Follow Up Visit): 25 minutes Coordination of Care & Counseling Time: Greater than 50% of time spent with patient was for coordination of care (as documented) and [id number] counseling of patient and/or family. Dictated By: Gertrudis Louis APRN DD/ 140 Signed By: <Electronically signed by SONIA Louis> 02/15/22 [address] [facility] Work Phone: 1([phone]) 973-878606-03-2022 Progress note Author Shiela Chan [facility] January 05, 2022 12:28pm Note Date/Time January 05, 2022 11:52 am [facility] at [address] [address] Hem/Onc Follow Up Note - OP Signed Patient: Janine Conde MR#: [id number] : 1950 Acct:[id number] Age/Sex: 71 / F Type: REG RCR Copies to: MD Shalom Leslie DO Lawrence R Mccormack, MD~ Subjective Date/Time of Service: Date of Service: 01/05/2022 Time of Service: 11:51 Chief Complaint: FOllow up visit with labs. HPI: 01/05/2022: Janine presents for follow-up of her iron deficiency anemia. She continues to be fatigued and gets dyspneic easily on exertion. She denies this at rest, though. She denies dark stool, bright red blood per rectum, hematuria, coffee ground emesis or other sites of bleeding. She denies fevers, chills, sweats, weight loss, abdominal pain, diarrhea or constipation. She did have quite a bit of nausea, vomiting, and abdominal/back cramping and pain after her first dose of octreotide last month. She refuses any additional doses, even withpremedications offered. She only received 1 dose of Feraheme at that time. On review, her labs from [facility] reveal hgb 9.0 and iron saturation 5%. We will plan for repeat Feraheme x 2 doses and will follow-up in 6 weeks again for repeat labs 11/24/2021: She is here for follow-up today and transfer of followup (previouslyfollowed by Dr. Anam Abarca). She reports improved energy since most recent RBC transfusion and iron infusions at [place] but persistent fatigue. She still has episodes of light-headedness. She denies vertiginous symptoms and is okay driving. She denies fevers, chills, night sweats or unexplained weight loss. She admits to small amounts of blood in the stool but has a history of hemorrhoids. She has been on chronic PPI therapy for many years and takes it daily. She is on B12 supplementation. Her CBC from 10/2021 revealed a HGB of 7.7 g/dL, MCV 74, RDW 21%. No iron panel was reported. Labs from [place] 11/22/2021 with improved hemoglobin to 9.4 but still low iron saturation 3.9% and ferritin 20. 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 Followup with [facility] in 6 weeks to review iron studies after Feraheme 510mg x 2 doses and Octreotide LAR 20mg IM monthly. 04/28/21 (Dr. Anam Abarca) feels ok today, energy stable denies any bleeding, denies ice cravings continues to take PPI daily, hemorrhoids under control denies any lightheadedness iron continues to be low, so will recommend updated scopes 10/24/2021 (VERA Chan) her energy is much improved after receiving Feraheme in September at [facility] she has her labs done at [facility] as well, none done this month for review she continues to note melena on occasion, not every day last colonoscopy and EGD done 05/15/21 revealing large hiatal hernia, hemorrhoids and Schatzki's Ring. She had a capsule endoscopy done 07/05/21 that showed angioectasia small bowel she denies any recent bleeding from hemorrhoids, these are well controlled she feels well overall without complaints beyond the continued melena - Summary of Therapies Summary of Therapies: IV Iron with Injectafer, 12/2019, 02/2020, 06/2020, 09/2020, 09/2021--1 U RBC transfused and Feraheme 11/2021--ordered Feraheme and Octreotide LAR. Only received 1 dose of Feraheme. She had nausea, vomiting, cramping and abdominal + back pain with the octreotide, declines further therapy 01/2022-- ordered additional 2 doses of Feraheme. ROS Details: All systems reviewed & no additional complaints except as documented PMFSH - Medical History Medical History: Medical History (Last Reviewed 11/25/21 @ 09:39 by Taina Toussaint MD) Anemia Anxiety Depression GERD (gastroesophageal reflux disease) - Surgical History Surgical History: Surgical History (Last Reviewed 11/25/21 @ 09:39 by Taina Toussaint MD) H/O: hysterectomy History of bunionectomy Hx of cholecystectomy - Family History Family History: Family History (Last Reviewed 11/25/21 @ 09:39 by Taina Toussaint MD) Son No problems noted. Mother Pancreatitis Diabetes Father Emphysema of lung - Social History Smoking Status: Former smoker Tobacco Type: cigarettes Substance Use Type: None Home Medications & Allergies Allergies No Known Allergies Allergy (Verified 11/30/21 14:31) Home Medications trazodone 100 mg tablet 1 tab PO HS 06/20/19 [History Confirmed 01/05/22] venlafaxine 150 mg capsule,extended release 24 hr 150 mg PO DAILY 06/20/19 [History Confirmed 01/05/22] clonazepam 0.5 mg tablet 0.5 mg PO BID #0 tab 06/23/19 [Rx Confirmed 01/05/22] buspirone 5 mg tablet 5 mg PO BID 06/22/21 [History Confirmed 01/05/22] Objective - Height/Weight Height/Weight: Height 5 ft 6 in Weight 112.037 kg BSA for Today's Weight 2.38 - Vital Signs Vital Signs: 01/05/22 11:07 Temperature 94 F L Pulse Rate [Left Brachial] 83 Respiratory Rate 16 Blood Pressure [Left Arm] 123/83 02 Sat by Pulse Oximetry 97 - Pain Bilateral Leg Pain Intensity: 7 Physical Exam Narrative: ECOG PS: 1 General : patient is alert and oriented to person place and time, no acute distress. HEENT: no scleral icterus, no oral lesions Neck: no JVD or thyromegaly. Lymph: no cervical, supraclavicular, axillary adenopathy. Heart: regular rate and rhythm no murmurs rubs or gallops. Abdomen: soft nontender nondistended, no hepatosplenomegaly. Lungs: clear to auscultation bilaterally. No wheezes, rales, rhonchi. Extremities: no clubbing cyanosis. No edema Results - Labs Labs: Diagram of Most Recent CBC and CMP 01/19/21 09:05 01/01/20 11:27 Assessment and Plan (1) Iron deficiency anemia Qualifiers: Iron deficiency anemia type: other iron deficiency Qualified Code(s): D50.8- Other iron deficiency anemias 71\2 year old female with chronic iron deficiency most likely secondary to bleeding from AVMs. She has required recurrent IV iron infusions throughout the last 1.5 years. 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 Rivera at [facility] September 2021 follow-up labs at [facility] with again low iron saturation at 3.5%, ferritin 15 and hemoglobin 6.6. She received 2 doses of Feraheme as well as 2 units PRBCs at [facility] 10/24/2021: She feels much better after receiving IV iron last month. She did nothave any labs drawn this month, but notes a considerable difference in her energy and dyspnea on exertion. She continues with occasional melena. She is concerned that following up every 3 months is too long to wait currently, since sheusually is deficient and has to get blood transfusions as well by the time she is evaluated again. I encouraged her to call in anytime she feels that her fatigue and/or dyspnea is worsened, or if she notes increased dark stools and wecan have her seen sooner and get additional labs. 11/24/2021: Improved hemoglobin to 9.4 but still persistent fatigue and iron saturation still 3.9% I recommended repeat infusion of Injectafer 510mg x 2 doses. --Adding Octreotide LAR 20mg IM monthly to prevent recurrent bleeding from AVMs given persistent anemia--she is not on any anticoagulant or antiplatelet therapy. We will have her follow-up in 6 weeks with [facility] and will plan for repeat iron studies and a cbc at that time. She is in agreement with this plan and had no further questions. Moderate complexity for transfer of care and adding Octreotide LAR with iron infusions. 01/05/2022: She continues with fatigue and persistent low counts despite 1 dose ofFeraheme and Octreotide in November. She denies any bleeding anywhere, no melena, and has had no medication changes since her last visit. She had a reaction to the Octreotide and does not want any additional doses. We will plan to replete with additional 2 doses of Feraheme and will follow-up with cbc, iron studies and ferritin in 6 weeks. She is in agreement with this plan and has no additional questions. (2) Angiodysplasia of small intestine Persistent iron deficiency anemia despite multiple iron infusions over the past year. Adding Octreotide LAR 20mg IM monthly to prevent recurrent bleeding from AVMs documented on capsular endoscopy in 07/2021. 01/05/2022: She did not tolerate her first Octreotide injection and declines additional therapy. She currently has no s/s of bleeding. Will replete with Feraheme and re-evaluate the need for further therapy if not recovered (3) B12 deficiency She is getting B12 injection monthly with PCP. (4) Hiatal hernia - Time with Patient Time Spent with Patient (Follow Up Visit): 25 minutes - transfer of care from Dr. Anam Abarca, coordinate iron infusion and add Octreotide LAR for AVM bleeding Coordination of Care & Counseling Time: Greater than 50% of time spent with patient was for coordination of care (as documented) and [id number] counseling of patient and/or family. Dictated By: Shiela Chan APRN DD/ [id number] Signed By: <Electronically signed by SONIA Chan> 01/05/22 1228 [facility] Work Phone: 1([phone] 226-559604-23-2022 Progress note Author Taina Toussaint [facility] November 25, 2021 2:17pm Note Date/Time November 24, 2021 11: 39am [facility] [place] [id number] Hem/Onc Follow Up Note - OP Signed Patient: Janine Conde MR#: [id number] : 1950 Acct:[id number] Age/Sex: 71 / F Type: REG RCR Copies to: DO Ricky Jordan MD~ Subjective Date/Time of Service: Date of Service: 11/24/2021 Time of Service: 11:38 Chief Complaint: Patient is here today 1 month follow up visit for Iron Deficiency Anemia and go over outside labs HPI: 11/24/2021: She is here for follow-up today and transfer of followup (previouslyfollowed by Dr. Anam Abarca). She reports improved energy since most recent RBC transfusion and iron infusions at [place] but persistent fatigue. She still has episodes of light-headedness. She denies vertiginous symptoms and is okay driving. She denies fevers, chills, night sweats or unexplained weight loss. She admits to small amounts of blood in the stool but has a history of hemorrhoids. She has been on chronic PPI therapy for many years and takes it daily. She is on B12 supplementation. Her CBC from 10/2021 revealed a HGB of 7.7 g/dL, MCV 74, RDW 21%. No iron panel was reported. Labs from [place] 11/22/2021 with improved hemoglobin to 9.4 but still low iron saturation 3.9% and ferritin 20. 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 Followup with [facility] in 6 weeks to review iron studies after Feraheme 510mg x 2 doses and Octreotide LAR 20mg IM monthly. 04/28/21 (Dr. Anam Abarca) feels ok today, energy stable denies any bleeding, denies ice cravings continues to take PPI daily, hemorrhoids under control denies any lightheadedness iron continues to be low, so will recommend updated scopes 10/24/2021 (VERA Chan) her energy is much improved after receiving Feraheme in September at [facility] she has her labs done at [facility] as well, none done this month for review she continues to note melena on occasion, not every day last colonoscopy and EGD done 05/15/21 revealing large hiatal hernia, hemorrhoids and Schatzki's Ring. She had a capsule endoscopy done 07/05/21 that showed angioectasia small bowel she denies any recent bleeding from hemorrhoids, these are well controlled she feels well overall without complaints beyond the continued melena - Summary of Therapies Summary of Therapies: IV Iron with Injectafer, 12/2019, 02/2020, 06/2020, 09/2020, 09/2021--1 U RBC transfused and Feraheme, 11/2021--ordered Feraheme and Octreotide LAR ROS Details: All systems reviewed & no additional complaints except as documented Subjective/ROS - Narrative: CONSTITUTIONAL: Fevers [-], Chills [-], Night sweats [-], Weight Loss [-], Hot Flashes [-], Fatigue [+] but improved HEENT: Changes in Vision [-], Changes in Hearing [-], Eye Pain [-], Ear Pain [- ], Mouth Sores [-], Change in Taste [-], Sore Throat [-], Hoarseness [-] CARDIOVASCULAR: Palpitations [-], Chest Pain [-], Chest Tightness [-], Swellingin Extremities [-] RESPIRATORY: Cough [-], Shortness of Breath [-], Dyspnea on Exertion [-], Wheezing [-] GASTROINTESTINAL: Abdominal Pain [-], Diarrhea [-], Constipation [-], Nausea [- ], Vomiting [-], Early Satiety [-], No visible Hematochezia [-], Melena [-] LYMPHATIC: Swollen Glands [-], Enlarged Lymph Nodes [-] INTEGUMENTARY: Rashes [-], Nodules [-], Ulcers [-], Blisters [-], Pigmentation Changes [-] HEMATOLOGIC: Easy Bruising [-], Gum Bleeding [-], Epistaxis [-], Prolonged Bleeding [-], Heavy Menses [-] GENITOURINARY: Hematuria [-], Difficulty Voiding [-], Pain with Voiding [-], Frequent Voiding [-] NEUROLOGIC: Numbness [-], Tingling [-], Altered Gait [-], Muscle Weakness [-], Lightheadedness [persists after recent transfusions/iron] MUSCULOSKELETAL: Muscle Pain [-], Bone Pain [-], Joint Pain [-] PSYCHIATRIC: Depressed Mood [-], Anxiety [-], Stressed [-] [facility] - History Attestation statement: The following information was validated with the patient. Source: Old Records Reviewed - Medical History Medical History: Medical History (Last Reviewed 11/25/21 @ 09:39 by Taina Toussaint MD) Anemia Anxiety Depression GERD (gastroesophageal reflux disease) - Surgical History Surgical History: Surgical History (Last Reviewed 11/25/21 @ 09:39 by Taina Toussaint MD) H/O: hysterectomy History of bunionectomy Hx of cholecystectomy - Family History Family History: Family History (Last Reviewed 11/25/21 @ 09:39 by Taina Toussaint MD) Son No problems noted. Mother Pancreatitis Diabetes Father Emphysema of lung - Social History Smoking Status: Former smoker Tobacco Type: cigarettes Substance Use Type: None Home Medications & Allergies Allergies No Known Allergies Allergy (Verified 11/24/21 11:29) Home Medications trazodone 100 mg tablet 1 tab PO HS 06/20/19 [History Confirmed 11/24/21] venlafaxine 150 mg capsule,extended release 24 hr 150 mg PO DAILY 06/20/19 [History Confirmed 11/24/21] clonazepam 0.5 mg tablet 0.5 mg PO BID #0 tab 06/23/19 [Rx Confirmed 11/24/21] ascorbic acid (vitamin C) 1,000 mg tablet (Vitamin C) 1,000 mg PO DAILY 06/22/21[History Confirmed 11/24/21] buspirone 5 mg tablet 5 mg PO BID 06/22/21 [History Confirmed 11/24/21] Objective - Height/Weight Height/Weight: Height 5 ft 6 in Weight 109.769 kg BSA for Today's Weight 2.38 - Vital Signs Vital Signs: 11/24/21 11:30 Temperature 97.8 F Pulse Rate [Left Brachial] 98 H Respiratory Rate 16 Blood Pressure [Left Arm] 130/59 L 02 Sat by Pulse Oximetry 99 - Pain Bilateral Leg Pain Intensity: 7 Physical Exam Narrative: ECOG PS: 1 General : patient is alert and oriented to person place and time, no acute distress. HEENT: no scleral icterus, no oral lesions Neck: no JVD or thyromegaly. Lymph: no cervical, supraclavicular, axillary adenopathy. Heart: regular rate and rhythm no murmurs rubs or gallops. Abdomen: soft nontender nondistended, no hepatosplenomegaly. Lungs: clear to auscultation bilaterally. No wheezes, rales, rhonchi. Extremities: no clubbing cyanosis. No edema - ECOG Performance Status ECOG Score: 2 Results - Labs Labs: Diagram of Most Recent CBC and CMP 01/19/21 09:05 01/01/20 11:27 Outside Labs: [facility] labs: 11/22/2021: WBC 4800, Hg 9.4, Hct 31.9, Platelets 283,000 TP 8.8, TB 0.5, Na 141, K 4.5, BUN 12, Creat 0.90, Ca 8.4, ALT 19, AST 14, AP 96, Alb 3.2 Serum iron 15, iron sat 3.9%, Ferritin 20 - Impressions No imaging for review. Assessment and Plan (1) Iron deficiency anemia Qualifiers: Iron deficiency anemia type: other iron deficiency Qualified Code(s): D50.8- Other iron deficiency anemias 70\2 year old female with chronic iron deficiency most likely secondary to bleeding from AVMs. She has required recurrent IV iron infusions throughout the last 1.5 years. 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 Rivera at [facility] September 2021 follow-up labs at [facility] with again low iron saturation at 3.5%, ferritin 15 and hemoglobin 6.6. She received 2 doses of Feraheme as well as 2 units PRBCs at [facility] 10/24/2021: She feels much better after receiving IV iron last month. She did nothave any labs drawn this month, but notes a considerable difference in her energy and dyspnea on exertion. She continues with occasional melena. She is concerned that following up every 3 months is too long to wait currently, since she usually is deficient and has to get blood transfusions as well by the time she is evaluated again. I encouraged her to call in anytime she feels that her fatigue and/or dyspnea is worsened, or if she notes increased dark stools and wecan have her seen sooner and get additional labs. 11/24/2021: Improved hemoglobin to 9.4 but still persistent fatigue and iron saturation still 3.9% I recommended repeat infusion of Injectafer 510mg x 2 doses. --Adding Octreotide LAR 20mg IM monthly to prevent recurrent bleeding from AVMs given persistent anemia--she is not on any anticoagulant or antiplatelet therapy. We will have her follow-up in 6 weeks with [facility] and will plan for repeat iron studies and a cbc at that time. She is in agreement with this plan and had no further questions. Moderate complexity for transfer of care and adding Octreotide LAR with iron infusions. (2) Angiodysplasia of small intestine Persistent iron deficiency anemia despite multiple iron infusions over the past year. Adding Octreotide LAR 20mg IM monthly to prevent recurrent bleeding from AVMs documented on capsular endoscopy in 07/2021. (3) B12 deficiency She is getting B12 injection monthly with PCP. (4) Hiatal hernia - Time with Patient Time Spent with Patient (Follow Up Visit): 25 minutes - transfer of care from Dr. Anam Abarca, coordinate iron infusion and add Octreotide LAR for AVM bleeding Coordination of Care & Counseling Time: Greater than 50% of time spent with patient was for coordination of care (as documented) and [id number] counseling of patient and/or family. Dictated By: Taina Toussaint MD DD/ [id number] Signed By: <Electronically signed by MD Taina Toussaint> 11/25/21 1413 [facility] Work Phone: 1([phone]) 211-489903-22-2022 Progress note Author Shiela Chan [facility] October 24, 2021 2:26pm Note Date/Time October 24, 2021 2:0 8pm [facility] [place] [address] Hem/Onc Follow Up Note - OP Signed Patient: Janine Conde MR#: [id number] : 1950 Acct:[id number] Age/Sex: 70 / F Type: REG RCR Copies to: DO Ricky Jordan MD~ Subjective Date/Time of Service: Date of Service: 10/24/2021 Time of Service: 14:08 Chief Complaint: Patient is here today for follow up visit for iron deficiency and go over outside labs HPI: She is here for follow-up today. She reports that she has been feeling weaker lately. She has been having episodes of light-headedness. She feels well today. Sheis concerned because her family his coming to visit and is afraid shewill fall. She denies vertiginous symptoms and is okay driving. Her CBC from today revealed a HGB of 7.7 g/dL, MCV 74, RDW 21%. No iron panel was reported. She denies fevers, chills, night sweats or unexplained weight loss. She admits to small amounts of blood in the stool but has a history of hemorrhoids. She has been on chronic PPI therapy for many years and takes it daily. She is on B12 supplementation. 04/28/21 feels ok today, energy stable denies any bleeding, denies ice cravings continues to take PPI daily, hemorrhoids under control denies any lightheadedness iron continues to be low, so will recommend updated scopes 10/24/2021 her energy is much improved after receiving feraheme in September at [facility] she has her labs done at [facility] as well, none done this month for review she continues to note melena on occasion, not every day last colonoscopy and EGD done 05/15/21 revealing large hiatal hernia, hemorrhoids and Schatzki's Ring. She had a capsule endoscopy done 07/05/21 that showed angioectasia small bowel she denies any recent bleeding from hemorrhoids, these are well controlled she feels well overall without complaints beyond the continued melena - Summary of Therapies Summary of Therapies: IV Iron with Injectafer, 12/2019, 02/2020, 06/2020, 09/2020. ROS Details: All systems reviewed & no additional complaints except as documented [facility] - Medical History Medical History: Medical History (Last Updated 06/22/21 @ 06:24 by Bina Hong RN) Anemia Anxiety Depression GERD (gastroesophageal reflux disease) - Surgical History Surgical History: Surgical History (Last Updated 06/22/21 @ 06:22 by Bina Hong RN) H/O: hysterectomy History of bunionectomy Hx of cholecystectomy - Family History Family History: Family History (Last Reviewed 06/22/21 @ 06:18 by Bina Hong RN) Son No problems noted. Mother Pancreatitis Diabetes Father Emphysema of lung - Social History Smoking Status: Former smoker Tobacco Type: cigarettes Substance Use Type: None Home Medications & Allergies Allergies No Known Allergies Allergy (Verified 10/24/21 13:21) Home Medications trazodone 100 mg tablet 1 tab PO HS 06/20/19 [History Confirmed 10/24/21] venlafaxine 150 mg capsule,extended release 24 hr 150 mg PO DAILY 06/20/19 [History Confirmed 10/24/21] clonazepam 0.5 mg tablet 0.5 mg PO BID #0 tab 06/23/19 [Rx Confirmed 10/24/21] ascorbic acid (vitamin C) 1,000 mg tablet (Vitamin C) 1,000 mg PO DAILY 06/22/21[History Confirmed 10/24/21] buspirone 5 mg tablet 5 mg PO BID 06/22/21 [History Confirmed 10/24/21] Objective - Height/Weight Height/Weight: Height 5 ft 6 in Weight 110.223 kg BSA for Today's Weight 2.38 - Vital Signs Vital Signs: 10/24/21 13:23 Temperature 98.0 F Pulse Rate [Left Brachial] 105 H Respiratory Rate 16 Blood Pressure [Left Arm] 118/76 02 Sat by Pulse Oximetry 97 - Pain Bilateral Leg Pain Intensity: 7 Physical Exam Narrative: ECOG PS: 0 General : patient is alert and oriented to person place and time, no acute distress. Neck: no JVD or thyromegaly. Lymph: no cervical, supraclavicular, axillary adenopathy. Heart: regular rate and rhythm no murmurs rubs or gallops. Abdomen: soft nontender nondistended, no hepatosplenomegaly. Lungs: clear to auscultation bilaterally. No wheezes, rales, rhonchi. Extremities: no clubbing cyanosis. No edema Results - Labs Labs: Diagram of Most Recent CBC and CMP 01/19/21 09:05 01/01/20 11:27 Assessment and Plan (1) Iron deficiency anemia Qualifiers: Iron deficiency anemia type: other iron deficiency Qualified Code(s): D50.8- Other iron deficiency anemias 70 year old female with chronic iron deficiency most likely secondary to poor oral iron absorption. She has required recurrent IV iron infusions throughout the last 1.5 years. Repeat colonoscopy and EGD on 05/15/2021 reveal a large hiatal hernia, hemorrhoids, and Schatzki's Ring Capsule endoscopy on 07/05 shows angioectasia of the small bowel 04/28/2021 follow-up in [place]: o FeraHeme 510 mg IV o Repeat Iron Studies, CBC, Ferritin in 1 month o Follow-up in [address] rivera at [facility] September 2021 follow-up labs at [facility] with again low iron saturation at 3.5%, ferritin 15 and hemoglobin 6.6. She received 2 doses of Feraheme as well as 2 units PRBCs at [facility] 10/24/2021: She feels much better after receiving IV iron last month. She did nothave any labs drawn this month, but notes a considerable difference in her energy and dyspnea on exertion. She continues with occasional melena. She is concerned that following up every 3 months is too long to wait currently, since she usually is deficient and has to get blood transfusions as well by the time she is evaluated again. I encouraged her to call in anytime she feels that her fatigue and/or dyspnea is worsened, or if she notes increased dark stools and wecan have her seen sooner and get additional labs. We will have her follow-up in [address] Toussaint and will plan for repeat iron studies and a cbc at that time. She is in agreement with this plan and had no further questions. (2) B12 deficiency She is getting B12 injection monthly with PCP. (3) Hiatal hernia (4) Obesity, morbid, BMI 40.0-49.9 She is starting to exercise more frequently and continues to monitor her weight. - Time with Patient Time Spent with Patient (Follow Up Visit): 25 minutes Coordination of Care & Counseling Time: Greater than 50% of time spent with patient was for coordination of care (as documented) and [id number] counseling of patient and/or family. Dictated By: Shiela Chan APRN DD/ [id number] Signed By: <Electronically signed by SONIA Chan> 10/24/21 1426 [facility] Work Phone: 1(243) 691-957910-02-2021 Progress note Author Francesco Solano [facility] May 05, 2021 11:24pm Note Date/Time April 28, 2021 12:03pm [facility] [place] [address] Hem/Onc Follow Up Note - OP Signed Patient: Janine Conde MR#: [id number] : 1950 Acct:[id number] Age/Sex: 70 / F Type: REG RCR Copies to: DO Ricky Jordan MD~ Date of Service: 04/28/2021 Time of Service: 12:02 - Assessment & Plan (1) Iron deficiency anemia Plan: 70 year old female with chronic iron deficiency most likely secondary to poor oral iron absorption. She has required recurrent IV iron infusions throughout the last year and is again iron deficient. we recommended she consider repeat EGD/COLONOSCOPY. to follow-up in [place]: o FeraHeme 510 mg IV o Repeat Iron Studies, CBC, Ferritin in 1 month o Follow-up in [address] rivera at [facility] (2) B12 deficiency Plan: She is getting B12 injection monthly with PCP. (3) Hiatal hernia (4) Obesity, morbid, BMI 40.0-49.9 Follow Up Instructions: cbc, iron studies, ferritin in [place] 1mo iv iron in [place] follow up in [place] in 1 month IVamshi DO have seen and evaluated this patient with Shahla Yates NP. I personally have contributed to the history, physical, assessment and plan as laid out in this document. - History of Present Illness Chief Complaint: Patient is a former patient of Dr Mendieta last seen by Dr Lizarraga. She is here for a 3 month follow up for iron deficiency anemia. Has outside labsfor review. No concerns. HPI: She is here for follow-up today. She reports that she has been feeling weaker lately. She has been having episodes of light-headedness. She feels well today. Sheis concerned because her family his coming to visit and is afraid shewill fall. She denies vertiginous symptoms and is okay driving. Her CBC from today revealed a HGB of 7.7 g/dL, MCV 74, RDW 21%. No iron panel was reported. She denies fevers, chills, night sweats or unexplained weight loss. She admits to small amounts of blood in the stool but has a history of hemorrhoids. She has been on chronic PPI therapy for many years and takes it daily. She is on B12 supplementation. 04/28/21 feels ok today, energy stable denies any bleeding, denies ice cravings continues to take PPI daily, hemorrhoids under control denies any lightheadedness iron continues to be low, so will recommend updated scopes - Physical Exam ECOG PS: 0 General : patient is alert and oriented to person place and time, no acute distress. Neck: no JVD or thyromegaly. Lymph: no cervical, supraclavicular, axillary adenopathy. Heart: regular rate and rhythm no murmurs rubs or gallops. Abdomen: soft nontender nondistended, no hepatosplenomegaly. Lungs: clear to auscultation bilaterally. No wheezes, rales, rhonchi. Extremities: no clubbing cyanosis. - Time with Patient Coordination of Care & Counseling Time: Greater than 50% of time spent with patient was for coordination of care (as documented) and [id number] counseling of patient and/or family. [facility] - Medical History Medical History: Medical History (Last Reviewed 01/07/20 @ 06:31 by Samina Pulido RN) Anxiety Depression GERD (gastroesophageal reflux disease) - Surgical History Surgical History: Surgical History (Last Reviewed 01/07/20 @ 06:31 by Samina Pulido RN) H/O: hysterectomy Hx of cholecystectomy - Family History Family History: Family History (Last Reviewed 01/07/20 @ 06:31 by Samina Pulido RN) Son No problems noted. Mother Pancreatitis Diabetes Father Emphysema of lung - Social History Smoking Status: Never smoker Tobacco Type: cigarettes Substance Use Type: None Additional Data - Additional Objective Data Height/Weight: Height 5 ft 6 in Weight 111.629 kg BSA for Today's Weight 2.38 Vital Signs: 04/28/21 11:35 Temperature 98 F Pulse Rate [Left Brachial] 115 H Respiratory Rate 20 Blood Pressure [Left Arm] 116/73 02 Sat by Pulse Oximetry 98 ONC Emotional Needs Assessment: Emotional Needs Identified? No - Lab Results Diagram of Most Recent CBC and CMP 01/19/21 09:05 01/01/20 11:27 - Home Medications and Allergies Allergies/Adverse Reactions: Allergies No Known Allergies Allergy (Verified 01/19/21 09:59) Home Medications: Home Medications buspirone 15 mg tablet 15 mg PO BID 06/20/19 [History Confirmed 04/28/21] trazodone 100 mg tablet 1 tab PO HS 06/20/19 [History Confirmed 04/28/21] venlafaxine 150 mg capsule,extended release 24 hr 150 mg PO DAILY 06/20/19 [History Confirmed 04/28/21] clonazepam 0.5 mg tablet 0.5 mg PO BID #0 tab 06/23/19 [Rx Confirmed 04/28/21] ferrous sulfate 325 mg (65 mg iron) tablet 325 mg PO DAILY 01/01/20 [History Confirmed 04/28/21] omeprazole 20 mg capsule,delayed release 20 mg PO DAILY 01/01/20 [History Confirmed 04/28/21] triamcinolone acetonide 0.1 % topical ointment 1 applic TOPICAL DAILY #30 g 02/11/20 [Rx Confirmed 04/28/21] Dictated By: Shiela Yates APRN DD/ 1202 Signed By: <Electronically signed by SONIA Yates> 04/28/21 1222 <Electronically signed by Francesco Solano II, DO> 05/05/21 2324 [facility] Work Phone: 1(218) 645-293606-17-2021 Progress note Author Nghia Lizarraga [facility] January 19, 2021 10:59am Note Date/Time January 19, 2021 10:4 6am [facility] [place] [address] Hem/Onc Follow Up Note - OP Signed Patient: Janine Conde MR#: [id number] : 1950 Acct:[id number] Age/Sex: 70 / F Type: REG RCR Copies to: DO Ricky Jordan MD~ Subjective Date/Time of Service: Date of Service: 01/19/2021 Time of Service: 10:45 Chief Complaint: Patient is here for follow up Iron deficiency anemia and vitamin B12 deficiency. She is here to review labs. She has been tired and have been feeling weak and lighted headed HPI: She is here for follow-up today. She reports that she has been feeling weaker lately. She has been having episodes of light-headedness. She feels well today. Sheis concerned because her family his coming to visit and is afraid shewill fall. She denies vertiginous symptoms and is okay driving. Her CBC from today revealed a HGB of 7.7 g/dL, MCV 74, RDW 21%. No iron panel was reported. She denies fevers, chills, night sweats or unexplained weight loss. She admits to small amounts of blood in the stool but has a history of hemorrhoids. She has been on chronic PPI therapy for many years and takes it daily. She is on B12 supplementation. - Summary of Therapies Summary of Therapies: IV Iron with Injectafer, 12/2019, 02/2020, 06/2020, 09/2020. ROS Details: All systems reviewed & no additional complaints except as documented Subjective/ROS - Narrative: CONSTITUTIONAL: Fevers [-], Chills [-], Nightsweats [-], Weight Loss [-], Hot Flashes [-], Fatigue [+] HEENT: Changes in Vision [-], Changes in Hearing [-], Eye Pain [-], Ear Pain [- ], Mouth Sores [-], Change in Taste [-], Sore Throat [-], Hoarseness [-] CARDIOVASCULAR: Palpitations [-], Chest Pain [-], Chest Tightness [-], Swellingin Extremities [-] RESPIRATORY: Cough [-], Shortness of Breath [-], Dyspnea on Exertion [-], Wheezing [-] GASTROINTESTINAL: Abdominal Pain [-], Diarrhea [-], Constipation [-], Nausea [- ], Vomiting [-], Early Satiety [-], Hematochezia [-], Melena [-] LYMPHATIC: Swollen Glands [-], Enlarged Lymph Nodes [-] INTEGUMENTARY: Rashes [-], Nodules [-], Ulcers [-], Blisters [-], Pigmentation Changes [-] HEMATOLOGIC: Easy Bruising [-], Gum Bleeding [-], Epistaxis [-], Prolonged Bleeding [-], Heavy Menses [-] GENITOURINARY: Hematuria [-], Difficulty Voiding [-], Pain with Voiding [-], Frequent Voiding [-] NEUROLOGIC: Numbness [-], Tingling [-], Altered Gait [-], Muscle Weakness [-], Lightheadedness [+] MUSCULOSKELETAL: Muscle Pain [-], Bone Pain [-], Joint Pain [-] PSYCHIATRIC: Depressed Mood [-], Anxiety [-], Stressed [-] [facility] - Medical History Medical History: Medical History (Last Reviewed 01/07/20 @ 06:31 by Samina Pulido RN) Anxiety Depression GERD (gastroesophageal reflux disease) - Surgical History Surgical History: Surgical History (Last Reviewed 01/07/20 @ 06:31 by Samina Pulido RN) H/O: hysterectomy Hx of cholecystectomy - Family History Family History: Family History (Last Reviewed 01/07/20 @ 06:31 by Samina Pulido RN) Son No problems noted. Mother Pancreatitis Diabetes Father Emphysema of lung - Social History Smoking Status: Never smoker Tobacco Type: cigarettes Substance Use Type: None Home Medications & Allergies Allergies No Known Allergies Allergy (Verified 01/19/21 09:59) Home Medications buspirone 15 mg PO BID 06/20/19 [History Confirmed 01/19/21] trazodone 1 tab PO HS 06/20/19 [History Confirmed 01/19/21] venlafaxine 150 mg PO DAILY 06/20/19 [History Confirmed 01/19/21] clonazepam 0.5 mg PO BID #0 tab 06/23/19 [Rx Confirmed 01/19/21] ferrous sulfate 325 mg PO DAILY 01/01/20 [History Confirmed 01/19/21] omeprazole 20 mg PO DAILY 01/01/20 [History Confirmed 01/19/21] triamcinolone acetonide 1 applic TOPICAL DAILY #30 g 02/11/20 [Rx Confirmed 01/19/21] Objective - Height/Weight Height/Weight: Height 5 ft 6 in Weight 113.398 kg BSA for Today's Weight 2.38 - Vital Signs Vital Signs: 01/19/21 10:01 Temperature 97.9 F Pulse Rate [Left Brachial] 96 H Respiratory Rate 20 Blood Pressure [Left Arm] 135/77 02 Sat by Pulse Oximetry 99 - Pain Bilateral Leg Pain Intensity: 7 - Emotional Needs Assessment Emotional Needs Assessment: Emotional Needs Identified? No Physical Exam Narrative: CONSTITUTIONAL: Awake, Alert and in No Acute Distress HEENT: Eyes were reactive to light bilaterally, anicteric sclere without conjunctival pallor. Nasal mucosa was non-erythematous. Mucous membranes were moist. Oral mucosa was without lesions or petechiae. Dentition was normal. NECK: There were no masses in the neck. Trachea was midline. Thyroid was not enlarged. RESPIRATORY: There were no wheezes, rhonchi or rubs on auscultation. There were no retractions or use of accessory muscles. There was no dullness to percussion or tactile fremitus. CARDIOVASCULAR: Rhythm and rate were regular. No gallops, murmurs or rubs wereauscultated. There was no edema in the extremities. GASTROINTESTINAL: Abdomen was non-tender. The liver was not enlarged. The spleen was not present. There were no hernias present. LYMPHATIC: No auricular, anterior/posterior cervical, supraclavicular, infraclavicular, axillary, or inguinal adenopathy appreciated MUSCULOSKELETAL: Gait was normal. No clubbing or cyanosis noted. SKIN: No rashes, lesions, nodules, ecchymoses, erythema or petechiae were noted. PSYCHIATRIC: Oriented to time, place and person. Memory was intact. Mood was normal and affect was appropriate to mood. Patient demonstrated insight into his diagnosis and judgment was adequate. - ECOG Performance Status ECOG Score: 0 Results - Labs Labs: Diagram of Most Recent CBC and CMP 01/19/21 09:05 01/01/20 11:27 Labs - Last 7 Days Laboratory Last Values WBC 6.1 x10E3/uL (4.5-11.0) 01/01/20 11:27 Corrected WBC 4.1 X10E3/uL (3.8-11.6) 01/19/21 09:05 Uncorrected WBC Count 4.1 x10E3/uL (4.5-11.0) L 01/19/21 09:05 RBC 3.52 x10E6/uL (3.60-5.00) L 01/19/21 09:05 Hgb 7.7 g/dL (11.8-15.4) L 01/19/21 09:05 Hct 26.2 % (34.0-46.4) L 01/19/21 09:05 MCV 74.4 fl (80-100) L 01/19/21 09:05 MCH 21.9 pg (24.7-34.3) L 01/19/21 09:05 MCHC 29.5 g/dL (32.0-35.0) L 01/19/21 09:05 RDW 21.4 % (11.9-15.3) H 01/19/21 09:05 Plt Count 341 x10E3/uL (150-450) 01/19/21 09:05 MPV 8.3 fl (6.3-10.7) 01/19/21 09:05 Neut % (Auto) 62.6 % (.) 01/19/21 09:05 Lymph % (Auto) 24.0 % (.) 01/19/21 09:05 [place] % (Auto) 9.1 % (.) 01/19/21 09:05 Eos % (Auto) 2.2 % (.) 01/19/21 09:05 Baso % (Auto) 2.1 % (.) 01/19/21 09:05 Neut # (Auto) 2.5 x10E3/uL (1.8-7.7) 01/19/21 09:05 Lymph # (Auto) 1.0 x10E3/uL (1.00-4.8) 01/19/21 09:05 [place] # (Auto) 0.4 x10E3/uL (0.0-0.8) 01/19/21 09:05 Eos # (Auto) 0.1 x10E3/uL (0.0-0.45) 01/19/21 09:05 Baso # (Auto) 0.1 x10E3/uL (0.0-0.2) 01/19/21 09:05 Nucleated RBC % (auto) 0.3 % (0-0.5) 01/19/21 09:05 Platelet Estimate Normal (Normal) 01/19/21 09:05 Plt Morphology Comment Normal (Normal) 01/19/21 09:05 RBC Morphology N/A 01/19/21 09:05 Polychromasia Slight 01/19/21 09:05 Hypochromasia Moderate 01/19/21 09:05 Anisocytosis Marked 01/19/21 09:05 Microcytosis Moderate 01/19/21 09:05 Tear Drop Cells Slight 01/19/21 09:05 Ovalocytes Slight 01/19/21 09:05 PHA Creatinine Clear [id number] 01/01/20 11:27 Sodium 137 mmol/L (136-146) 01/01/20 11:27 Potassium 4.4 mmol/L (3.5-5.1) 01/01/20 11:27 Chloride 107 mmol/L (95-114) 01/01/20 11:27 Carbon Dioxide 20.8 mmol/L (22.0-30.0) L 01/01/20 11:27 BUN 16 mg/dL (9-23) 01/01/20 11:27 Creatinine 0.85 mg/dL (0.44-1.03) 01/01/20 11:27 Est GFR ( Amer) > 60 01/01/20 11:27 Est GFR (Non-Af Amer) > 60 01/01/20 11:27 Glucose 108 mg/dL (70-100) H 01/01/20 11:27 Calcium 8.6 mg/dL (8.2-10.2) 01/01/20 11:27 Iron 62 ug/dL (40-150) 07/08/20 11:37 TIBC 328 ug/dL (255-450) 07/08/20 11:37 Iron Saturation 18.0 % (20-50) L 07/08/20 11:37 Transferrin 234 mg/dL (180-380) 07/08/20 11:37 Total Bilirubin 0.8 mg/dL (0.3-1.2) 01/01/20 11:27 Ferritin 110.9 ng/mL (11-306.8) 07/08/20 11:37 AST 13 U/L (10-42) 01/01/20 11:27 ALT 13 U/L (10-60) 01/01/20 11:27 Alkaline Phosphatase 93 U/L (32-92) H 01/01/20 11:27 Total Protein 6.5 gm/dL (6.1-7.9) 01/01/20 11:27 Albumin 3.2 gm/dL (3.2-5.5) 01/01/20 11:27 Globulin 3.3 gm/dL 01/01/20 11:27 Albumin/Globulin Ratio 1.0 01/01/20 11:27 Vitamin B12 261 pg/mL (180-914) 01/01/20 11:27 Folate 6.7 ng/mL (4.0-) 01/01/20 11:27 Urine Color Yellow (Yellow) 01/11/20 15:16 Urine Appearance Clear (Clear) 01/11/20 15:16 Urine pH 6.5 (5.0-9.0) 01/11/20 15:16 Ur Specific [place] 1.009 (1.001-1.030) 01/11/20 15:16 Urine Protein Negative mg/dL (Negative) 01/11/20 15:16 Urine Glucose (UA) Normal mg/dL (Normal) 01/11/20 15:16 Urine Ketones Negative (Negative) 01/11/20 15:16 Urine Occult Blood Negative (Negative) 01/11/20 15:16 Urine Nitrite Negative (Negative) 01/11/20 15:16 Urine Bilirubin Negative (Negative) 01/11/20 15:16 Urine Urobilinogen Normal mg/dL (Normal) 01/11/20 15:16 Ur Leukocyte Esterase Negative (Negative) 01/11/20 15:16 Urine Hemosiderin Cancelled 01/11/20 15:16 Assessment and Plan (1) Iron deficiency anemia Qualifiers: Iron deficiency anemia type: other iron deficiency Qualified Code(s): D50.8- Other iron deficiency anemias 70 year old female with chronic iron deficiency most likely secondary to poor oral iron absorption. Patient on chronic PPI therapy have difficulty absorbing dietary iron due to an achlorhydric gastric environment. In addition there could be a component of undiagnosed atrophic gastritis. The same applies to Vitamin B12 deficiency in the elderly. Her CBC is consistent with an CONSUELO. We will recheck iron studies today and will schedule her for FeraHeme 510 mg IV x2. She is hemodynamically stable, and there is no indication for a emergent blood transfusion. She will return in 3 months for iron studies. I recommend repeat iron studies every 3 months to assess the frequency of her iron infusions. Follow-up in 3 months. o Iron Studies, Ferritin o FeraHeme 510 mg IV x2 o Repeat Iron Studies, CBC, Ferritin in 3 months o Follow-up in 3 months (2) B12 deficiency She is getting B12 injection with PCP. (3) Hiatal hernia (4) Obesity, morbid, BMI 40.0-49.9 - Time with Patient Time Spent with Patient (Follow Up Visit): 25 minutes Coordination of Care & Counseling Time: Greater than 50% of time spent with patient was for coordination of care (as documented) and [id number] counseling of patient and/or family. Dictated By: Nghia Lizarraga MD DD/ [id number] Signed By: <Electronically signed by Nghia Lizarraga MD> 01/19/21 1053 [facility] Work Phone: 1(404) 691-231604-20-2021 Progress note Author Anam Abarca [facility] November 22, 2020 2:25pm Note Date/Time November 22, 2020 2:2 4pm [facility] at [address] [address] Hem/Onc Follow Up Note - OP Signed Patient: Janine Conde MR#: [id number] : 1950 Acct:[id number] Age/Sex: 70 / F Type: REG RCR Copies to: DO Ricky Jordan MD~ Subjective Date/Time of Service: Date of Service: 11/22/2020 Time of Service: 14:23 Chief Complaint: Patient is here for a 2 month follow up with outside labs for review. She voices no concerns. HPI: Mrs. Conde returns for an earlier follow-up. She forgot to take her B12 injection. Her legs are weak, she is saw PCP, B12 level was 7 checked, I do not havethe records, she will see PCP in 2 weeks. She denies hematochezia hematochezia, melena, or hematuria. She has good appetite, weight is stable. - Summary of Therapies Summary of Therapies: IV iron with Injectafer, 12/2019, 02/2020, 06/2020, 09/2020. ROS Details: All systems reviewed & no additional complaints except as documented Subjective/ROS - Narrative: CONSTITUTIONAL: No weight loss, fever, chills. CARDIOVASCULAR: No chest pain, chest pressure or chest discomfort. No palpitations or edema. RESPIRATORY: No shortness of breath, cough or hemoptysis. GASTROINTESTINAL: Positive for stomach discomfort, no melena, hematochezia. GENITOURINARY: No dysuria, urinary frequency or urgency. NEUROLOGICAL: No headache. MUSCULOSKELETAL: No back pain, or joint pain. [facility] - Medical History Medical History: Medical History (Last Reviewed 01/07/20 @ 06:31 by Samina Pulido RN) Anxiety Depression GERD (gastroesophageal reflux disease) - Surgical History Surgical History: Surgical History (Last Reviewed 01/07/20 @ 06:31 by Samina Pulido RN) H/O: hysterectomy Hx of cholecystectomy - Family History Family History: Family History (Last Reviewed 01/07/20 @ 06:31 by Samina Pulido RN) Son No problems noted. Mother Pancreatitis Diabetes Father Emphysema of lung - Social History Smoking Status: Never smoker Tobacco Type: cigarettes Substance Use Type: None Home Medications & Allergies Allergies No Known Allergies Allergy (Verified 11/22/20 14:03) Home Medications buspirone 15 mg PO BID 06/20/19 [History Confirmed 11/22/20] trazodone 1 tab PO HS 06/20/19 [History Confirmed 11/22/20] venlafaxine 150 mg PO DAILY 06/20/19 [History Confirmed 11/22/20] clonazepam 0.5 mg PO BID #0 tab 06/23/19 [Rx Confirmed 11/22/20] ferrous sulfate 325 mg PO DAILY 01/01/20 [History Confirmed 11/22/20] omeprazole 20 mg PO DAILY 01/01/20 [History Confirmed 11/22/20] triamcinolone acetonide 1 applic TOPICAL DAILY #30 g 02/11/20 [Rx Confirmed 11/22/20] Objective - Height/Weight Height/Weight: Height 5 ft 6 in Weight 116.21 kg BSA for Today's Weight 2.38 - Vital Signs Vital Signs: 11/22/20 14:03 Temperature 97.6 F Pulse Rate [Left Brachial] 93 H Respiratory Rate 20 Blood Pressure [Left Arm] 132/77 02 Sat by Pulse Oximetry 98 - Pain Bilateral Leg Pain Intensity: 7 - Emotional Needs Assessment Emotional Needs Assessment: Emotional Needs Identified? No Physical Exam Narrative: GENERAL APPEARANCE: In no acute distress. HEENT: No jaundice or lymphadenopathy. LUNGS: Breathing comfortably on room air. EXTREMITIES: No edema. NEUROLOGIC: Grossly intact. Results - Labs Labs: Diagram of Most Recent CBC and CMP 06/17/20 12:58 01/01/20 11:27 Assessment and Plan (1) Iron deficiency anemia Qualifiers: Iron deficiency anemia type: chronic blood loss Qualified Code(s): D50.0 - Iron deficiency anemia secondary to blood loss (chronic) Likely due to chronic blood loss versus decreased absorption. EGD 06/2019 only revealed a small ulcers. Colonoscopy was normal, capsular endoscopy did not report significant findings. Careful review her medical record, no concern of aortic stenosis, abdominal scan did not reveal evidence of malignancy. She tolerated IV iron well in 06/2019, 12/2019, 02/2020, 06/2020, 09/2020. -Anemia has much improved after IV iron. Outside lab reviewed, IV is good, will hold off IV iron. She will return in 2 months with repeat CBC and iron studies, sooner if needed. (2) B12 deficiency She is getting B12 injection with PCP. (3) Skin lesion (4) Hiatal hernia (5) Obesity, morbid, BMI 40.0-49.9 - Time with Patient Time Spent with Patient (Follow Up Visit): Less than 20 minutes Coordination of Care & Counseling Time: Greater than 50% of time spent with patient was for coordination of care (as documented) and [id number] counseling of patient and/or family. Dictated By: Anam Abarca MD DD/ 142 Signed By: <Electronically signed by Anam Abarca MD> 11/22/20 1425 [facility] Work Phone: 1([phone]) [phone] Progress note Author Anam Abarca [facility] September 08, 2020 1:41pm Note Date/Time September 08, 2020 1 :41pm [facility] [place] [address] Hem/Onc Follow Up Note - OP Signed Patient: Janine Conde MR#: [id number] : 1950 Acct:[id number] Age/Sex: 69 / F Type: REG RCR Copies to: DO Ricky Jordan MD~ Subjective Date/Time of Service: Date of Service: 09/08/2020 Time of Service: 13:39 Chief Complaint: Patient is here for a 2 month follow up for anemia. She has outside labs. She voices no new concerns today. HPI: Mrs. Conde returns for an earlier follow-up. She feels well. She denies hematochezia hematochezia, melena, or hematuria. She has good appetite, weight is stable. - Summary of Therapies Summary of Therapies: IV iron with Injectafer, 12/2019, 02/2020, 06/2020. ROS Details: All systems reviewed & no additional complaints except as documented Subjective/ROS - Narrative: CONSTITUTIONAL: No weight loss, fever, chills. CARDIOVASCULAR: No chest pain, chest pressure or chest discomfort. No palpitations or edema. RESPIRATORY: No shortness of breath, cough or hemoptysis. GASTROINTESTINAL: Positive for stomach discomfort, no melena, hematochezia. GENITOURINARY: No dysuria, urinary frequency or urgency. NEUROLOGICAL: No headache. MUSCULOSKELETAL: No back pain, or joint pain. [facility] - Medical History Medical History: Medical History (Last Reviewed 01/07/20 @ 06:31 by Samina Pulido RN) Anxiety Depression GERD (gastroesophageal reflux disease) - Surgical History Surgical History: Surgical History (Last Reviewed 01/07/20 @ 06:31 by Samina Pulido RN) H/O: hysterectomy Hx of cholecystectomy - Family History Family History: Family History (Last Reviewed 01/07/20 @ 06:31 by Samina Pulido RN) Son No problems noted. Mother Pancreatitis Diabetes Father Emphysema of lung - Social History Smoking Status: Never smoker Tobacco Type: cigarettes Substance Use Type: None Substance Abuse Comment: 1 beer daily Home Medications & Allergies Allergies No Known Allergies Allergy (Verified 07/08/20 11:34) Home Medications buspirone 15 mg PO BID 06/20/19 [History Confirmed 09/08/20] trazodone 1 tab PO HS 06/20/19 [History Confirmed 09/08/20] venlafaxine 150 mg PO DAILY 06/20/19 [History Confirmed 09/08/20] clonazepam 0.5 mg PO BID #0 tab 06/23/19 [Rx Confirmed 09/08/20] ferrous sulfate 325 mg PO DAILY 01/01/20 [History Confirmed 09/08/20] omeprazole 20 mg PO DAILY 01/01/20 [History Confirmed 09/08/20] triamcinolone acetonide 1 applic TOPICAL DAILY #30 g 02/11/20 [Rx Confirmed 09/08/20] Objective - Height/Weight Height/Weight: Height 5 ft 6 in Weight 120.882 kg BSA for Today's Weight 2.38 - Vital Signs Vital Signs: 09/08/20 13:00 Temperature 97.4 F L Pulse Rate [Left Brachial] 100 H Respiratory Rate 20 Blood Pressure [Left Arm] 145/77 H 02 Sat by Pulse Oximetry 97 - Emotional Needs Assessment Emotional Needs Assessment: Emotional Needs Identified? No Physical Exam Narrative: GENERAL APPEARANCE: In no acute distress. HEENT: No jaundice or lymphadenopathy. LUNGS: Breathing comfortably on room air. EXTREMITIES: No edema. NEUROLOGIC: Grossly intact. Results - Labs Labs: Assessment and Plan (1) Iron deficiency anemia Qualifiers: Iron deficiency anemia type: chronic blood loss Qualified Code(s): D50.0 - Iron deficiency anemia secondary to blood loss (chronic) Likely due to chronic blood loss versus decreased absorption. EGD 06/2019 only revealed a small ulcers. Colonoscopy was normal, capsular endoscopy did not report significant findings. Careful review her medical record, no concern of aortic stenosis, abdominal scan did not reveal evidence of malignancy. She tolerated IV iron well in 06/2019, 12/2019, 02/2020, 06/2020. -Anemia has much improved after IV iron. Outside lab reviewed, IV is low, will give another course of IV iron, I will see her back in 2 months with repeat CBC and iron studies, sooner if needed. (2) B12 deficiency She is getting B12 injection with PCP. (3) Skin lesion (4) Hiatal hernia (5) Obesity, morbid, BMI 40.0-49.9 - Time with Patient Time Spent with Patient (Follow Up Visit): Less than 20 minutes Coordination of Care & Counseling Time: Greater than 50% of time spent with patient was for coordination of care (as documented) and [id number] counseling of patient and/or family. Dictated By: Anam Abarca MD DD/ [id number] Signed By: <Electronically signed by Anam Abarca MD> 09/08/20 1341 [facility] Work Phone: [phone]) 507-358612-04-2020 Progress note Author Anam Abarca [facility] July 08, 2020 12:39pm Note Date/Time July 08, 2020 1 1:53am [facility] [place] [address] Hem/Onc Follow Up Note - OP Signed with Addenda Patient: Janine Conde MR#: [id number] : 1950 Acct:[id number] Age/Sex: 69 / F Type: REG RCR Copies to: DO Ricky Jordan MD~ ADDENDUM1 Iron saturation is low, will give another course of IV iron to avoid significantfluctuations of her anemia. Anam Abarca MD Addendum Dictated By: Anam Abarca MD Addendum Signed By: 07/08/201238 Addendum Cosigned By: DD/ /22/1238 TD/TT: 07/08/2011/22/1238 Subjective Date/Time of Service: Date of Service: 07/08/2020 Time of Service: 11:52 Chief Complaint: Patient is here for 4 week follow up following injectafer treatment. Patient states she is feeling much better. HPI: Mrs. Conde returns for an earlier follow-up. She feels well. She denies hematochezia hematochezia, melena, or hematuria. She has good appetite, weight is stable. - Summary of Therapies Summary of Therapies: IV iron with Injectafer, 12/2019, 02/2020, 06/2020. ROS Details: All systems reviewed & no additional complaints except as documented Subjective/ROS - Narrative: CONSTITUTIONAL: No weight loss, fever, chills. CARDIOVASCULAR: No chest pain, chest pressure or chest discomfort. No palpitations or edema. RESPIRATORY: No shortness of breath, cough or hemoptysis. GASTROINTESTINAL: Positive for stomach discomfort, no melena, hematochezia. GENITOURINARY: No dysuria, urinary frequency or urgency. NEUROLOGICAL: No headache. MUSCULOSKELETAL: No back pain, or joint pain. [facility] - Medical History Medical History: Medical History (Last Reviewed 01/07/20 @ 06:31 by Samina Pulido RN) Anxiety Depression GERD (gastroesophageal reflux disease) - Surgical History Surgical History: Surgical History (Last Reviewed 01/07/20 @ 06:31 by Samina Pulido RN) H/O: hysterectomy Hx of cholecystectomy - Family History Family History: Family History (Last Reviewed 01/07/20 @ 06:31 by Samina Pulido RN) Son No problems noted. Mother Pancreatitis Diabetes Father Emphysema of lung - Social History Smoking Status: Never smoker Tobacco Type: cigarettes Substance Use Type: None Substance Abuse Comment: 1 beer daily Home Medications & Allergies Allergies No Known Allergies Allergy (Verified 07/08/20 11:34) Home Medications buspirone 15 mg PO BID 06/20/19 [History Confirmed 07/08/20] trazodone 1 tab PO HS 06/20/19 [History Confirmed 07/08/20] venlafaxine 150 mg PO DAILY 06/20/19 [History Confirmed 07/08/20] clonazepam 0.5 mg PO BID #0 tab 06/23/19 [Rx Confirmed 07/08/20] ferrous sulfate 325 mg PO DAILY 01/01/20 [History Confirmed 07/08/20] omeprazole 20 mg PO DAILY 01/01/20 [History Confirmed 07/08/20] triamcinolone acetonide 1 applic TOPICAL DAILY #30 g 02/11/20 [Rx Confirmed 07/08/20] Objective - Height/Weight Height/Weight: Height 5 ft 6 in Weight 121 kg BSA for Today's Weight 2.38 - Vital Signs Vital Signs: 07/08/20 11:35 Temperature 97.3 F L Pulse Rate [Left Brachial] 110 H Respiratory Rate 18 Blood Pressure [Left Arm] 139/85 02 Sat by Pulse Oximetry 97 - Emotional Needs Assessment Emotional Needs Assessment: Emotional Needs Identified? Yes Distress Screening Total 1 Physical Exam Narrative: GENERAL APPEARANCE: In no acute distress. HEENT: No jaundice or lymphadenopathy. LUNGS: Breathing comfortably on room air. EXTREMITIES: No edema. NEUROLOGIC: Grossly intact. Results - Labs Labs: 07/07/20: Hgb 11.8 Iron studies today, pending. Assessment and Plan (1) Iron deficiency anemia Qualifiers: Iron deficiency anemia type: chronic blood loss Qualified Code(s): D50.0 - Iron deficiency anemia secondary to blood loss (chronic) Likely due to chronic blood loss versus decreased absorption. EGD 06/2019 only revealed a small ulcers. Colonoscopy was normal, capsular endoscopy did not report significant findings. Careful review her medical record, no concern of aortic stenosis, abdominal scan did not reveal evidence of malignancy. She tolerated IV iron well in 06/2019, 12/2019, 02/2020, 06/2020. -Anemia has much improved after IV iron, she will call later today to discuss ifshe will need another course of IV iron, I will see her back in 2 months with repeat CBC and iron studies, sooner if needed. (2) B12 deficiency She is getting B12 injection with PCP. (3) Skin lesion (4) Hiatal hernia (5) Obesity, morbid, BMI 40.0-49.9 - Time with Patient Coordination of Care & Counseling Time: 15 min, greater than 50% of time spent with patient was for coordination of care(as documented) and [id number] counseling of patient and/or family. Dictated By: Anam Abarca MD DD/ [id number] Signed By: <Electronically signed by Anam Abarca MD> 07/08/20 1159 [facility] Work Phone: [phone] Progress note Author Anam Abarca [facility] June 10, 2020 1:38pm Note Date/Time June 10, 2020 1 :29pm [facility] at [address] [address] Hem/Onc Follow Up Note - OP Signed Patient: Janine Conde MR#: [id number] : 1950 Acct:[id number] Age/Sex: 69 / F Type: REG RCR Copies to: DO Ricky Jordan MD~ Subjective Date/Time of Service: Date of Service: 06/10/2020 Time of Service: 13:25 Chief Complaint: Follow up after inpt stay HPI: Mrs. Conde returns for an earlier follow-up. She feels well. She presented to [facility] on 06/07/2020 for profound fatigue, found to have severe anemia with hemoglobin of 6.7, she received 1 units of [address]BC transfusion[address] Dr. Hayward currently called me, will get her in for early appointment. She denies hematochezia hematochezia, melena, or hematuria. She has good appetite, weight is stable. - Summary of Therapies Summary of Therapies: IV iron with Injectafer, 12/2019, 02/2020, 06/2020. ROS Details: All systems reviewed & no additional complaints except as documented Subjective/ROS - Narrative: CONSTITUTIONAL: No weight loss, fever, chills, positive for fatigue. CARDIOVASCULAR: No chest pain, chest pressure or chest discomfort. No palpitations or edema. RESPIRATORY: No shortness of breath, cough or hemoptysis. GASTROINTESTINAL: Positive for stomach discomfort, no melena, hematochezia. GENITOURINARY: No dysuria, urinary frequency or urgency. NEUROLOGICAL: No headache. MUSCULOSKELETAL: No back pain, or joint pain. [facility] - Medical History Medical History: Medical History (Last Reviewed 01/07/20 @ 06:31 by Samina Pulido RN) Anxiety Depression GERD (gastroesophageal reflux disease) - Surgical History Surgical History: Surgical History (Last Reviewed 01/07/20 @ 06:31 by Samina Pulido RN) H/O: hysterectomy Hx of cholecystectomy - Family History Family History: Family History (Last Reviewed 01/07/20 @ 06:31 by Samina Pulido RN) Son No problems noted. Mother Pancreatitis Diabetes Father Emphysema of lung - Social History Smoking Status: Never smoker Tobacco Type: cigarettes Substance Use Type: None Substance Abuse Comment: 1 beer daily Home Medications & Allergies Allergies No Known Allergies Allergy (Verified 06/20/19 00:20) Home Medications buspirone 15 mg PO BID 06/20/19 [History Confirmed 04/07/20] trazodone 1 tab PO HS 06/20/19 [History Confirmed 04/07/20] venlafaxine 150 mg PO DAILY 06/20/19 [History Confirmed 04/07/20] clonazepam 0.5 mg PO BID #0 tab 06/23/19 [Rx Confirmed 04/07/20] ferrous sulfate 325 mg PO DAILY 01/01/20 [History Confirmed 04/07/20] omeprazole 20 mg PO DAILY 01/01/20 [History Confirmed 04/07/20] triamcinolone acetonide 1 applic TOPICAL DAILY #30 g 02/11/20 [Rx Confirmed 04/07/20] Objective - Height/Weight Height/Weight: Height 5 ft 6 in Weight 122.2 kg - Vital Signs Vital Signs: 06/10/20 13:01 Temperature 98 F Pulse Rate [Left Brachial] 111 H Respiratory Rate 20 Blood Pressure [Left Arm] 144/82 H 02 Sat by Pulse Oximetry 97 - Emotional Needs Assessment Emotional Needs Assessment: Emotional Needs Identified? No Distress Screening Total 0 Physical Exam Narrative: GENERAL APPEARANCE: In no acute distress. HEENT: No jaundice or lymphadenopathy. Pale. LUNGS: Breathing comfortably on room air. EXTREMITIES: No edema. NEUROLOGIC: Grossly intact. Assessment and Plan (1) Iron deficiency anemia Qualifiers: Iron deficiency anemia type: chronic blood loss Qualified Code(s): D50.0 - Iron deficiency anemia secondary to blood loss (chronic) Likely due to chronic blood loss versus decreased absorption. EGD 06/2019 only revealed a small ulcers. Colonoscopy was normal, capsular endoscopy did not report significant findings. Careful review her medical record, no concern of aortic stenosis, abdominal scan did not reveal evidence of malignancy. She tolerated IV iron well in 06/2019, 12/2019, 02/2020. -Profound anemia without evidence of bleeding, requiring blood transfusions, will give IV iron, update iron studies. H&H and hold clot next week, if no appropriate increment (still<8.0), will need blood transfusion. -I will see her back in 4 weeks with repeat CBC and iron studies, sooner if needed. (2) B12 deficiency (3) Skin lesion (4) Hiatal hernia (5) Obesity, morbid, BMI 40.0-49.9 - Time with Patient Coordination of Care & Counseling Time: 20 min, greater than 50% of time spent with patient was for coordination of care(as documented) and [id number] counseling of patient and/or family. Dictated By: Anam Abarca MD DD/ [id number] Signed By: <Electronically signed by Anam Abarca MD> 06/10/20 1338 [facility] Work Phone: [phone]) 226-271109-03-2020 Progress note Author Anam Abarca [facility] April 07, 2020 1:21pm Note Date/Time April 07, 2020 1:17pm [facility] [place] [address] Hem/Onc Follow Up Note - OP Signed Patient: Janine Conde MR#: [id number] : 1950 Acct:[id number] Age/Sex: 69 / F Type: REG RCR Copies to: DO Ricky Jordan MD~ Subjective Date/Time of Service: Date of Service: 04/07/2020 Time of Service: 13:16 Chief Complaint: 2 month follow up appt HPI: Mrs. Conde returns for scheduled follow-up. She feels well. The skin lesionsdid not respond much to steroids. She denies hematochezia hematochezia, melena, or hematuria. She has good appetite, weight is stable. - Summary of Therapies Summary of Therapies: IV iron with Injectafer, 12/2019, 02/2020. ROS Details: All systems reviewed & no additional complaints except as documented Subjective/ROS - Narrative: CONSTITUTIONAL: No weight loss, fever, chills, weakness or fatigue. CARDIOVASCULAR: No chest pain, chest pressure or chest discomfort. No palpitations or edema. RESPIRATORY: No shortness of breath, cough or hemoptysis. GASTROINTESTINAL: Positive for stomach discomfort, no melena, hematochezia. GENITOURINARY: No dysuria, urinary frequency or urgency. NEUROLOGICAL: No headache. MUSCULOSKELETAL: No back pain, or joint pain. [facility] - Medical History Medical History: Medical History (Last Reviewed 01/07/20 @ 06:31 by Samina Pulido RN) Anxiety Depression GERD (gastroesophageal reflux disease) - Surgical History Surgical History: Surgical History (Last Reviewed 01/07/20 @ 06:31 by Samina Pulido RN) H/O: hysterectomy Hx of cholecystectomy - Family History Family History: Family History (Last Reviewed 01/07/20 @ 06:31 by Samina Pulido RN) Son No problems noted. Mother Pancreatitis Diabetes Father Emphysema of lung - Social History Smoking Status: Never smoker Tobacco Type: cigarettes Substance Use Type: None Substance Abuse Comment: 1 beer daily Home Medications & Allergies Allergies No Known Allergies Allergy (Verified 06/20/19 00:20) Home Medications buspirone 15 mg PO BID 06/20/19 [History Confirmed 04/07/20] trazodone 1 tab PO HS 06/20/19 [History Confirmed 04/07/20] venlafaxine 150 mg PO DAILY 06/20/19 [History Confirmed 04/07/20] clonazepam 0.5 mg PO BID #0 tab 06/23/19 [Rx Confirmed 04/07/20] ferrous sulfate 325 mg PO DAILY 01/01/20 [History Confirmed 04/07/20] omeprazole 20 mg PO DAILY 01/01/20 [History Confirmed 04/07/20] triamcinolone acetonide 1 applic TOPICAL DAILY #30 g 02/11/20 [Rx Confirmed 04/07/20] Objective - Height/Weight Height/Weight: Height 5 ft 6 in Weight 120.2 kg - Vital Signs Vital Signs: 04/07/20 13:05 Temperature 97 F L Pulse Rate [Left Brachial] 94 H Respiratory Rate 20 Blood Pressure [Left Arm] 148/74 H 02 Sat by Pulse Oximetry 100 - Emotional Needs Assessment Emotional Needs Assessment: Emotional Needs Identified? No Distress Screening Total 0 Physical Exam Narrative: GENERAL APPEARANCE: In no acute distress. HEENT: No jaundice or lymphadenopathy. LUNGS: Breathing comfortably on room air. EXTREMITIES: No edema. NEUROLOGIC: Grossly intact. Skin: Multiple nodular, hyperpigmented lesions involving arms Results - Labs Outside Labs: 04/05/20: WBC 6.4, Hgb 11.6, MCV 98.7, Plt 277 Ferritin 91 Assessment and Plan (1) Iron deficiency anemia Qualifiers: Iron deficiency anemia type: chronic blood loss Qualified Code(s): D50.0 - Iron deficiency anemia secondary to blood loss (chronic) Likely due to chronic blood loss versus decreased absorption. EGD 06/2019 only revealed a small ulcers. Colonoscopy was normal. Careful review her medical record, no concern of aortic stenosis, abdominal scan did not reveal evidence ofmalignancy. -She tolerated IV iron well in 06/2019, 12/2019, 02/2020. Iron is adequate, mild anemia due to inflammation, no need IV iron for now. -I will see her back in 3 months with repeat CBC and iron studies. Sooner if needed. (2) B12 deficiency She is getting B12 injection with PCP. (3) Skin lesion Likely skin manifestation of her ulcerative colitis. No response to hydrocortisone, or 0.1% Triamcinolone. -Advised Dermatology Evaluation. (4) Hiatal hernia (5) Obesity, morbid, BMI 40.0-49.9 - Time with Patient Coordination of Care & Counseling Time: 20 min, greater than 50% of time spent with patient was for coordination of care(as documented) and [id number] counseling of patient and/or family. Dictated By: Anam Abarca MD DD/ [id number] Signed By: <Electronically signed by Anam Abarca MD> 04/07/20 1321 [facility] Work Phone: [phone]) [phone] Progress note Author Anam Abarca [facility] February 11, 2020 2:44pm Note Date/Time February 11, 2020 1:59p m [facility] [place] [address] Hem/Onc Follow Up Note - OP Signed Patient: Janine Conde MR#: [id number] : 1950 Acct:[id number] Age/Sex: 69 / F Type: REG RCR Copies to: DO Ricky Jordan MD~ Subjective Date/Time of Service: Date of Service: 02/11/2020 Time of Service: 13:57 Chief Complaint: 6 week follow up appt review lab work HPI: Mrs. Conde returns for scheduled follow-up. She feels much better after IV iron. She was started on soft solids and for GI, she has stomach irritations. She noticed multiple skin lesions in the last 3 weeks, no relief after topical cortisone. She is tired today, she denies hematochezia hematochezia, melena, orhematuria. She has good appetite, weight is stable. She was found to have B12 deficiency, she is currently receiving B12 supplement IM monthly. - Summary of Therapies Summary of Therapies: IV iron with Injectafer, 12/2019, 02/2020. ROS Details: All systems reviewed & no additional complaints except as documented Subjective/ROS - Narrative: CONSTITUTIONAL: No weight loss, fever, chills, weakness or fatigue. CARDIOVASCULAR: No chest pain, chest pressure or chest discomfort. No palpitations or edema. RESPIRATORY: No shortness of breath, cough or hemoptysis. GASTROINTESTINAL: Positive for stomach discomfort, no melena, hematochezia. GENITOURINARY: No dysuria, urinary frequency or urgency. NEUROLOGICAL: No headache. MUSCULOSKELETAL: No back pain, or joint pain. [facility] - Medical History Medical History: Medical History (Last Reviewed 01/07/20 @ 06:31 by Samina Pulido RN) Anxiety Depression GERD (gastroesophageal reflux disease) H/O: hysterectomy - Surgical History Surgical History: Surgical History (Last Reviewed 01/07/20 @ 06:31 by Samina Pulido RN) Hx of cholecystectomy - Family History Family History: Family History (Last Reviewed 01/07/20 @ 06:31 by Samina Pulido RN) Son No problems noted. Mother Pancreatitis Diabetes Father Emphysema of lung - Social History Smoking Status: Never smoker Tobacco Type: cigarettes Substance Use Type: None Substance Abuse Comment: 1 beer daily Home Medications & Allergies Allergies No Known Allergies Allergy (Verified 06/20/19 00:20) Home Medications buspirone 15 mg PO BID 06/20/19 [History Confirmed 02/11/20] trazodone 1 tab PO HS 06/20/19 [History Confirmed 02/11/20] venlafaxine 150 mg PO DAILY 06/20/19 [History Confirmed 02/11/20] clonazepam 0.5 mg PO BID #0 tab 06/23/19 [Rx Confirmed 02/11/20] ferrous sulfate 325 mg PO DAILY 01/01/20 [History Confirmed 02/11/20] omeprazole 20 mg PO DAILY 01/01/20 [History Confirmed 02/11/20] triamcinolone acetonide 1 applic TOPICAL DAILY #30 g 02/11/20 [Rx] Objective - Height/Weight Height/Weight: Height 5 ft 6 in Weight 121.9 kg - Vital Signs Vital Signs: 02/11/20 13:40 Temperature 98.5 F Pulse Rate [Left Brachial] 110 H Respiratory Rate 20 Blood Pressure [Left Arm] 137/83 02 Sat by Pulse Oximetry 96 - Emotional Needs Assessment Emotional Needs Assessment: Emotional Needs Identified? No Distress Screening Total 0 Physical Exam Narrative: GENERAL APPEARANCE: In no acute distress. HEENT: Moist and clear. LUNGS: Breathing comfortably on room air. ABDOMEN: Soft, nontender. EXTREMITIES: No edema. NEUROLOGIC: Grossly intact. Skin: Multiple nodular, hyperpigmented lesions involving arms, abdominal wall, and legs Assessment and Plan (1) Iron deficiency anemia Qualifiers: Iron deficiency anemia type: chronic blood loss Qualified Code(s): D50.0 - Iron deficiency anemia secondary to blood loss (chronic) Likely due to chronic blood loss versus decreased absorption. EGD 06/2019 only revealed a small ulcers. Colonoscopy was normal. Careful review her medical record, no concern of aortic stenosis, abdominal scan did not reveal evidence ofmalignancy. -She tolerated IV iron well in 06/2019, 12/2019. Iron sat is low, still anemic, fatigued, will give another course of IV iron. -I will see her back in 8 weeks with repeat CBC and iron studies. Sooner if needed. (2) B12 deficiency B12 level low normal even on B12 injection. -She could take B12 orally as well, will check B12 level upon next visit, if improves, may consider switching to oral B12. (3) Skin lesion Likely skin manifestation of her ulcerative colitis. No response to hydrocortisone. -will give a course of 0.1% Triamcinolone ointment, E-prescribed. (4) Hiatal hernia (5) Obesity, morbid, BMI 40.0-49.9 - Time with Patient Total Time Spent with Patient: 30 min Coordination of Care & Counseling Time: Greater than 50% of time spent with patient was for coordination of care (as documented) and [id number] counseling of patient and/or family. Dictated By: Anam Abarca MD DD/ [id number] Signed By: <Electronically signed by Anam Abarca MD> 02/11/20 1444 [facility] Work Phone: [phone]) [phone] Consult note Author Anam Abarca [facility] January 01, 2020 12:16pm Note Date/Time January 01, 2020 12:04 pm [facility] at [place] [id number] Hem/Onc Consult Note - OP Signed Patient: Janine Conde MR#: [id number] : 1950 Acct:[id number] Age/Sex: 69 / F Type: REG RCR Copies to: DO Ricky Jordan MD~ HPI Date/Time of Service: Date of Service: 01/01/2020 Time of Service: 12:04 Referring Provider/PCP: Referring Provider: Ricky Benson MD PCP: Shalom Hayward DO - History of Present Illness Reason for Consultation: Iron deficiency anemia Chief Complaint: New patient appt HPI: Dear doctors, I seen the patient in consultation, and I would like to thank you for the referral. As you know, Mrs. Conde is 69-year-old pleasant lady, who developed iron deficiency anemia in 2019. She was hospitalized at [facility] last June, EGD revealed 2 small duodenal ulcers, colonoscopy was normal. She received PRBC transfusions, as well as IV iron with Ferric gluconate. During the same hospital stay she was found to have a subsegmental PE, placed onanticoagulation for 3 months. Her CBC on 12/10/2019 revealed hemoglobin 7.2, she received 2 units of PRBC transfusion at [facility]. She is currently taking oral iron every other day, she is scheduled to have capsule endoscopy. A Hematology consultation is requested for an evaluation of IV iron. She denies hematochezia hematochezia, melena, or hematuria. She has good appetite, weight is stable. She denies short of breath or chest pain. She was found to have B12 deficiency, she is currently receiving B12 supplement IM monthly. PMFSH - Medical History Medical History: Medical History (Last Reviewed 01/01/20 @ 11:09 by Laquita Massey RN) Anxiety Depression GERD (gastroesophageal reflux disease) H/O: hysterectomy - Surgical History Surgical History: Surgical History (Last Reviewed 01/01/20 @ 11:09 by Laquita Massey RN) Hx of cholecystectomy - Family History Family History: Family History (Last Reviewed 01/01/20 @ 11:09 by Laquita Massey RN) Son No problems noted. Mother Pancreatitis Diabetes Father Emphysema of lung - Social History Smoking Status: Never smoker Tobacco Type: cigarettes Substance Use Type: None Substance Abuse Comment: 1 beer daily Home Medications & Allergies Allergies No Known Allergies Allergy (Verified 06/20/19 00:20) Home Medications buspirone 15 mg PO BID 06/20/19 [History Confirmed 11/09/19] trazodone 1 tab PO HS 06/20/19 [History Confirmed 11/09/19] venlafaxine 150 mg PO DAILY 06/20/19 [History Confirmed 11/09/19] clonazepam 0.5 mg PO BID #0 tab 06/23/19 [Rx Confirmed 11/09/19] ferrous sulfate 325 mg PO DAILY 01/01/20 [History Confirmed 01/01/20] omeprazole 20 mg PO DAILY 01/01/20 [History Confirmed 01/01/20] Subjective Data Subjective/ROS - Narrative: CONSTITUTIONAL: No weight loss, fever, chills, she is fatigued. HEENT: Eyes: No visual loss, blurred vision, double vision or yellow sclerae. Ears, Nose, Throat: No hearing loss, epistaxis. SKIN: No rash or itching. CARDIOVASCULAR: No chest pain, chest pressure or chest discomfort. No palpitations or edema. RESPIRATORY: No shortness of breath, cough or hemoptysis. GASTROINTESTINAL: No dysphagia, nausea, vomiting or diarrhea. No abdominal pain,melena, hematochezia. Positive for constipation on iron. GENITOURINARY: No dysuria, urinary frequency or urgency. NEUROLOGICAL: No headache, dizziness, syncope, numbness or tingling in the extremities. MUSCULOSKELETAL: No muscle, back pain, joint pain or stiffness. HEMATOLOGIC: No bleeding or bruising. LYMPHATICS: No enlarged nodes. PSYCHIATRIC: She has depression that is being controlled. Objective - Height/Weight Height/Weight: Height 5 ft 6 in Weight 120.2 kg - Vital Signs Vital Signs: 01/01/20 11:13 Temperature 98 F Pulse Rate [Left Brachial] 98 H Respiratory Rate 20 Blood Pressure [Left Arm] 147/75 H 02 Sat by Pulse Oximetry 98 - Emotional Needs Assessment Emotional Needs Assessment: Emotional Needs Identified? Yes Distress Screening Total 0 Physical Exam Narrative: GENERAL APPEARANCE: Well developed, well nourished, in no acute distress. Obese. SKIN: Inspection of the skin reveals no rashes, ulcerations or petechiae. HEENT: The sclerae were anicteric and conjunctivae were pink and moist. EOMI, PERRLA. The oral mucosa is moist and clear. NECK: Supple and symmetric. There was no thyroid enlargement, and no tenderness,or masses were felt. LUNGS: Normal breath sounds on auscultation without rales, rhonchi, or crackles. CARDIOVASCULAR: S1 and S2, regular rate and rhythm, no murmurs, gallops, rubs. ABDOMEN: Soft, nontender, bowel sounds normal. No hepatosplenomegaly. No mass palpated. LYMPH NODES: No lymphadenopathy was appreciated in the neck, axillae. MUSCULOSKELETAL: Gait was normal. There was no tenderness or effusions noted. Muscle strength and tone were normal. EXTREMITIES: No cyanosis, clubbing or edema. NEUROLOGIC: Alert and oriented x 3. Normal affect. Sensation to touch was normal. Results - Labs Labs: Diagram of Most Recent CBC and CMP 01/01/20 11:27 01/01/20 11:27 Labs - Last 7 Days 01/01/20 11:27: PHA Creatinine Clear [id number], Sodium 137, Potassium 4.4, Chloride 107, Carbon Dioxide 20.8 L, BUN 16, Creatinine 0.85, Est GFR ( Amer) > 60, Est GFR (Non-Af Amer) > 60, Glucose 108 H, Calcium 8.6, Iron 14 L, TIBC 428, Iron Saturation 3.0 L, Transferrin 306, Total Bilirubin 0.8, AST 13, ALT 13, Alkaline Phosphatase 93 H, Total Protein 6.5, Albumin 3.2, Globulin 3.3,Albumin/Globulin Ratio 1.0 01/01/20 11:27: WBC 6.1, Corrected WBC 6.1, RBC 4.07, Hgb 8.5 L, Hct 28.1 L, MCV69.0 L, MCH 20.8 L, MCHC 30.2 L, RDW 23.9 H, Plt Count 289, MPV 8.1, Nucleated RBC % (auto) 0.2 Outside Labs: 12/10/2019 WC 9.9, Hgb 7.2, platelet 436 Protein 3.0 10/20/2019 WBC 5.1, Hgb 8.5, MCV 82.3, platelets 377, normal differential Ferritin 5.0, B12 219 - Impressions Date of Service: 06/20/19 2D echo: Ejection Fraction = 55-60%. The left ventricular size, thickness and function are normal The left ventricular wall motion is normal. A variety of Doppler measurements indicate impaired left ventricular relaxation, which is associated with grade I/IV or mild diastolic dysfunction. There is mild tricuspid regurgitation. There is no comparison study available. Aortic Valve: The aortic valve is normal in structure and function. No aortic regurgitation is present. 06/20/19 CT/CT abdomen pelvis wo con: Sudden mid and lt sided abd pain, pt is in with PE, Anemia FINDINGS: CT scans of the abdomen and pelvis were obtained without contrast. The visualized lung bases show a large hiatal hernia at the retrocardiac region. A platelike atelectasis at the right posterior costophrenic angle is noted. There is no pleural effusion. The visualized liver is of normal size without intrahepatic biliary dilatation. The gallbladder is surgically absent. The pancreas shows no focal mass or peripancreatic inflammation. The visualized spleen and adrenal glands are of unremarkable size. Both kidneys show no hydronephrosis or radiopaque stone. Mild chronic perinephric stranding is noted. Both ureters are of unremarkable caliber and course without radiopaque stone. The urinary bladder is unremarkable. The patient is status post hysterectomy. There is no free air in the abdomen or bowel obstruction. The appendix is not well-visualized, however, there are no secondary signs of appendicitis. Moderate amount of fecal material is present within the colon. There is no pericolonic inflammation. No significant small bowel dilatation or mesenteric edema is noted. There is no ascites or abscess. Slight sigmoid diverticulosis is noted. The abdominal aorta shows slight atheromatous plaques without aneurysm. There is no para-aortic lymphadenopathy. No prominent pelvic lymph node enlargement is demonstrated. A small fat-containing umbilical hernia is noted. Moderate anterior osteophytosis at the visualized lower thoracic spine and the lumbar spine is noted. IMPRESSION: A LARGE HIATAL HERNIA. NO FREE AIR IN THE ABDOMEN OR BOWEL OBSTRUCTION. NO OBSTRUCTIVE UROPATHY. NO ASCITES OR ABSCESS. Assessment and Plan (1) Iron deficiency anemia Qualifiers: Iron deficiency anemia type: chronic blood loss Qualified Code(s): D50.0 - Iron deficiency anemia secondary to blood loss (chronic) Likely due to chronic blood loss versus decreased absorption. EGD 06/2019 only revealed a small ulcers. Colonoscopy was normal. She is scheduled to have capsule endoscopy. Careful review her medical record, no concern of aortic stenosis, abdominal scan did not reveal evidence of malignancy. She tolerated oral iron with moderate constipation, however, no significant improvement in anemia. She had a blood transfusion reaction, but tolerated IV iron fine in 06/2019. -We discussed IV iron, she is open to it. I did nutrition counselor her the risks of anaphylactic reaction, low but real. She verbalized good understanding and agreed to proceed proceed. Will have baseline CBC and iron studies today. -Other injector placed for precertification. I will see her back in 6 weeks with repeat CBC and iron studies. Sooner if needed. -Also have a urinalysis to rule out hematuria. (2) B12 deficiency We will update B12 level. (3) Hiatal hernia (4) Obesity, morbid, BMI 40.0-49.9 Thank you for having me participate in the care of this pleasant lady. This is amoderate complexity encounter, time spent 50 minutes, including greater than 50%of time for [id number] counseling and care coordination. - Time with Patient Coordination of Care & Counseling Time: Greater than 50% of time spent with patient was for coordination of care (as documented) and [id number] counseling of patient and/or family. Dictated By: Anam Abarca MD DD/ [id number] Signed By: <Electronically signed by Anam Abarca MD> 01/01/20 1216 [facility] Work Phone: Evaluation note* Diagnosis Onset Date Resolution Status Skin lesion acute Angiodysplasia of small intestine chronic B12 deficiency chronic Hiatal hernia chronic Iron deficiency anemia chron ic Obesity, morbid, BMI 40.0-49.9 chronic [facility] Work Phone: Evaluation noteNo [employer] Other Evaluation note* Diagnosis Onset Date Resolution Status Skin lesion acute Angiodysplasia of small intestine chronic B12 deficiency chronic Chronic Freedom ulcer chroni c Hiatal hernia chronic Iron deficiency anemia chron ic Obesity, morbid, BMI 40.0-49.9 chronic [facility] Work Phone: Hiszwio general Narrative - Reported* Type Description Date Medical History high cholesterol Medical History anxiety Medical History sleep disorder/insomnia Surgical History bunionectomy left foot Surgical History total hysterectomy Surgical History cholecystectomy Surgical History T&A Surgical History Oral Surgery Hospitalization History GI bleeding 06/2019 [email or web address] Other Hisnac[facility] general Narrative - Reported* Type Description Date Medical History high cholesterol Medical History anxiety Medical History sleep disorder/insomnia Medical History IFG (impaired fasting glucose) Medical History YARI (generalized anxiety disorde r) Medical History Hyperlipidemia type II Medical History Essential hypertension Medical History Fatigue Medical History Alcohol withdrawal syndrome with out complication Medical History Menopause Medical History Depression, major, in remission Medical History Leg swelling Medical History Peptic ulcer disease with hemorr luis angel Medical History Single subsegmental pulmonary embolism without acute cor pulmonale Medical History Bile salt-induced diarrhea Medical History Anemia due to blood loss, acute Surgical History bunionectomy left foot Surgical History total hysterectomy Surgical History cholecystectomy 2008 Surgical History T&A Surgical History Oral Surgery Surgical History COLONOSCOPY Surgical History EGD Hospitalization History GI bleeding 06/2019 [email or web address] Other Hissoxb general Narrative - ReportedNortwikifolio Other Hisarzx general Narrative - Reported* Type Description Date Medical History high cholesterol Medical History anxiety Medical History sleep disorder/insomnia Medical History IFG (impaired fasting glucose) Medical History YARI (generalized anxiety disorde r) Medical History Hyperlipidemia type II Medical History Essential hypertension Medical History Fatigue Medical History Alcohol withdrawal syndrome with out complication Medical History Menopause Medical History Depression, major, in remission Medical History Leg swelling Medical History Peptic ulcer disease with hemorr luis angel Medical History Single subsegmental pulmonary embolism without acute cor pulmonale Medical History Bile salt-induced diarrhea Medical History Anemia due to blood loss, acute Medical History Large Hiatal Hernia Surgical History bunionectomy left foot Surgical History total hysterectomy Surgical History cholecystectomy 2008 Surgical History T&A Surgical History Oral Surgery Surgical History COLONOSCOPY Surgical History EGD Surgical History EGD w/ enteroscopy 05/2023 Hospitalization History GI bleeding 06/2019 [email or web address] Other Hospital Discharge instructions Additional Instructions DISCHARGE INSTRUCTIONS FOR ENDOSCOPY FOR COLONOSCOPY: -Expect a gassy or full feeling after a colonoscopy. Report any NEW abdominal pain or vomiting. -Watch for rectal bleeding if you have a polyp removed. You may have oozing, but notify the doctor if you pass clots. -Avoid aspirin for 2 days IF a polyp is removed. -It is important to keep your appointments for follow up examinations because polyps can grow back. FOR HUFF/EGD/ERCP/PEG: -Your throat may feel sore today from the scope that the doctor passed through your throat to visualize your stomach. Take a throat lozenge or suck on ice to ease the discomfort. -Do NOT smoke. -You may notice some streaks of blood in your sputum if the doctor has taken a biopsy. Notify the doctor if you cough up large amounts of blood. -Expect a gassy or full feeling after esophagoscopy. Report any persistent pain or vomiting. -Take it easy today. You need not stay in bed, but avoid strenuous activities such as jogging. FOR SEDATION FOR 24 HOURS: -NO driving -Do NOT operate machinery such as power tools, [employer] mowers, snow blowers, sewing machines, etc. -Avoid alcoholic beverages and drugs for allergies, nerves, or sleep. -Do NOT stay alone. Do NOT leave your child unattended. -Do NOT make important personal or business decisions or sign any legal documents. -Eat solid foods and drink liquids in smaller amounts than usual until normal appetite returns. If you should experience an upset stomach, liquids high in sugar content (soda, Nolberto-aid, non-acid juices) are recommended. -You can resume normal activities tomorrow. FOLLOW UP Please call the office and make a follow up appointment to see me in 6-8 weeks. Pantoprazole 40 mg p.o. before breakfast and supper -Notify the doctor if you have any problems. -Office number [phone] Work Phone: Progress note Author Gertrudis Louis [facility] August 09, 2022 2:19pm Note Date/Time August 09, 2022 2: 03pm [facility] at [address] [address] Hem/Onc Follow Up Note - OP Signed Patient: Janine Conde MR#: [id number] : 1950 Acct:[id number] Age/Sex: 71 / F Type: REG RCR Copies to: DO Ricky Jordan MD~ Subjective Date/Time of Service: Date of Service: 08/09/2022 Time of Service: 13:50 Chief Complaint: Patient is here for a 2 month follow up with outside labs for review. No concerns voiced at this time. HPI: 08/09/2022: Janine is here for interval 2 month follow up to review most recent laboratories. Clinically, she is fatigued, chronically. Denies any significant shortness of breath, palpitations, chest pain, melena, hematochezia or BRBPR. Last iron infusion with Feraheme was 2 months ago. As noted previously, she has declined further Octreotide therapy due to intolerable side effects related to first injection given x 1 on 11/30/2021. Most recent laboratories from [facility] dated 08/06/2022 reveal hemoglobin - 10.7; ferritin- 34 and iron saturation - 5.9%. 06/06/2022: Here to review iron studies after her most recent Feraheme infusions in April 2022. I reviewed all of her iron infusions over the last 2 years. She previously received Injectafer 750 mg IV for total of 8 infusions during 2019. During 2020 she received Feraheme twice in January. She had capsule endoscopy with Dr. Elias in July 2021 which confirmed evidence of angiodysplasia. Also on EGD and colonoscopy May 2021 she had a large hiatalhernia with Schatzki's ring and diverticulosis. Recommendation was for trial ofoctreotide LAR in late November 2021 which she tolerated poorly. Since then she received iron infusions 6 times over the last 6 months. She has not had any melena or bright red blood per rectum. She continues to experience fatigue withactivities and her most recent labs at [facility] 06/04/2022 showed hemoglobin 11.7 with serum iron low 42.8, iron saturation 13.4, and ferritin 48. We are preparing iron infusion today with Feraheme 510 mg IV x2 weekly infusions. Since she has required about 3 infusions/year with the last infusiononly 2 months ago, we will repeat her CBC and iron studies in August 2022 although she may return sooner if she has symptomatic anemia. She may follow- upwith Dr. Elias as needed. 02/15/2022: Patient is here for 1 month follow up; s/p repeat Feraheme infusion ~4 weeks ago. On 01/03/2022 her hemoglobin was noted to be 9.1; ferritin 23.0; iron saturation 5%. She was subsequently given 01/16/2022 and 01/23/2022. Repeatlabs indicate modest improvement of hemoglobin from 9.1-10.5; ferritin now 75.0;iron saturation improved to 9%. As noted below, patient has had multiple EGD/colonoscopy procedures and wireless capsule endoscopy x2; with last WCE in July 2021. 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 She did trial a one-time dose of octreotide LAR 20 mg IM on 11/30/2021. She reported very poor tolerance to the injection citing significant abdominal pain, cramping, nausea and vomiting. Clinically, she is doing well and feeling well, in regards to energy levels and fatigue. Will continue close follow up. 01/05/2022: Janine presents for follow-up of her iron deficiency anemia. She continues to be fatigued and gets dyspneic easily on exertion. She denies this at rest, though. She denies dark stool, bright red blood per rectum, hematuria, coffee ground emesis or other sites of bleeding. She denies fevers, chills, sweats, weight loss, abdominal pain, diarrhea or constipation. She did have quite a bit of nausea, vomiting, and abdominal/back cramping and pain after her first dose of octreotide last month. She refuses any additional doses, even withpremedications offered. She only received 1 dose of Feraheme at that time. On review, her labs from [facility] reveal hgb 9.0 and iron saturation 5%. We will plan for repeat Feraheme x 2 doses and will follow-up in 6 weeks again for repeat labs 11/24/2021: She is here for follow-up today and transfer of followup (previouslyfollowed by Dr. Anam Abarca). She reports improved energy since most recent RBC transfusion and iron infusions at [place] but persistent fatigue. She still has episodes of light-headedness. She denies vertiginous symptoms and is okay driving. She denies fevers, chills, night sweats or unexplained weight loss. She admits to small amounts of blood in the stool but has a history of hemorrhoids. She has been on chronic PPI therapy for many years and takes it daily. She is on B12 supplementation. Her CBC from 10/2021 revealed a HGB of 7.7 g/dL, MCV 74, RDW 21%. No iron panel was reported. Labs from [place] 11/22/2021 with improved hemoglobin to 9.4 but still low iron saturation 3.9% and ferritin 20. 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 Followup with [facility] in 6 weeks to review iron studies after Feraheme 510mg x 2 doses and Octreotide LAR 20mg IM monthly. 04/28/21 (Dr. Anam Abarca) feels ok today, energy stable denies any bleeding, denies ice cravings continues to take PPI daily, hemorrhoids under control denies any lightheadedness iron continues to be low, so will recommend updated scopes 10/24/2021 (YAZAN Chan) her energy is much improved after receiving Feraheme in September at [facility] she has her labs done at [facility] as well, none done this month for review she continues to note melena on occasion, not every day last colonoscopy and EGD done 05/15/21 revealing large hiatal hernia, hemorrhoids and Schatzki's Ring. She had a capsule endoscopy done 07/05/21 that showed angioectasia small bowel she denies any recent bleeding from hemorrhoids, these are well controlled she feels well overall without complaints beyond the continued melena - Summary of Therapies Summary of Therapies: IV Iron with Injectafer, 12/2019, 02/2020, 06/2020, 09/2020, 09/2021--1 U RBC transfused and Feraheme 11/2021--ordered Feraheme and Octreotide LAR. Only received 1 dose of Feraheme. She had nausea, vomiting, cramping and abdominal + back pain with the octreotide, declines further therapy. Feraheme 510 mg IV x 2 doses: 01/16/2022 and 01/23/2022 04/24/2022 and 05/01/2022 06/14/2022 and 06/21/2022 Ordered 2 doses 08/09/2022 ROS Details: All systems reviewed & no additional complaints except as documented Subjective/ROS - Narrative: CONSTITUTIONAL: Fevers [-], Chills [-], Night sweats [-], Weight Loss [-], Hot Flashes [-], Fatigue [+] recurrent after iron infusions 2 months ago HEENT: Changes in Vision [-], Changes in Hearing [-], Eye Pain [-], Ear Pain [- ], Mouth Sores [-], Change in Taste [-], Sore Throat [-], Hoarseness [-] CARDIOVASCULAR: Palpitations [-], Chest Pain [-], Chest Tightness [-], Swellingin Extremities [-] RESPIRATORY: Cough [-], Shortness of Breath [-], Dyspnea on Exertion [+], Wheezing [-] GASTROINTESTINAL: Abdominal Pain [-], Diarrhea [-], Constipation [-], Nausea [- ], Vomiting [-], Early Satiety [-], No visible Hematochezia [-], Melena [-] LYMPHATIC: Swollen Glands [-], Enlarged Lymph Nodes [-] INTEGUMENTARY: Rashes [-], Nodules [-], Ulcers [-], Blisters [-], Pigmentation Changes [-] HEMATOLOGIC: Easy Bruising [-], Gum Bleeding [-], Epistaxis [-], Prolonged Bleeding [-], Heavy Menses [-] GENITOURINARY: Hematuria [-], Difficulty Voiding [-], Pain with Voiding [-], Frequent Voiding [-] NEUROLOGIC: Numbness [-], Tingling [-], Altered Gait [-], Muscle Weakness [-], Lightheadedness [persists after recent transfusions/iron] MUSCULOSKELETAL: Muscle Pain [-], Bone Pain [-], Joint Pain [-] PSYCHIATRIC: Depressed Mood [-], Anxiety [-], Stressed [-] [facility] - Medical History Medical History: Medical History (Last Reviewed 06/06/22 @ 10:20 by Taina Toussaint MD) Anemia Anxiety Depression GERD (gastroesophageal reflux disease) - Surgical History Surgical History: Surgical History (Last Reviewed 06/06/22 @ 10:20 by Taina Toussaint MD) H/O: hysterectomy History of bunionectomy Hx of cholecystectomy - Family History Family History: Family History (Last Reviewed 06/06/22 @ 10:20 by Taina Toussaint MD) Son No problems noted. Mother Pancreatitis Diabetes Father Emphysema of lung - Social History Smoking Status: Former smoker Tobacco Type: cigarettes Substance Use Type: None Home Medications & Allergies Allergies No Known Allergies Allergy (Verified 06/06/22 09:58) Home Medications trazodone 100 mg tablet 1 tab PO HS 06/20/19 [History Confirmed 08/09/22] venlafaxine 150 mg capsule,extended release 24 hr 150 mg PO DAILY 06/20/19 [History Confirmed 08/09/22] clonazepam 0.5 mg tablet 0.5 mg PO BID #0 tabs 06/23/19 [Rx Confirmed 08/09/22] buspirone 5 mg tablet 5 mg PO BID 06/22/21 [History Confirmed 08/09/22] Objective - Resuscitation Status Resuscitation Status: Full Code - Height/Weight Height/Weight: Height 5 ft 6 in Weight 113.8 kg BSA for Today's Weight 2.38 - Vital Signs Vital Signs: 08/09/22 13:08 Temperature 97.8 F Pulse Rate [Left Brachial] 101 H Respiratory Rate 18 Blood Pressure [Left Arm] 107/65 02 Sat by Pulse Oximetry 98 Oxygen Delivery Method Room Air - Pain Bilateral Leg Pain Intensity: 0 Physical Exam Narrative: ECOG PS: 0 General : patient is alert and oriented to person place and time, no acute distress. HEENT: no scleral icterus, no oral lesions Neck: no JVD or thyromegaly. Lymph: no cervical, supraclavicular, axillary adenopathy. Heart: regular rate and rhythm no murmurs rubs or gallops. Abdomen: soft nontender nondistended, no hepatosplenomegaly. Lungs: clear to auscultation bilaterally. No wheezes, rales, rhonchi. Extremities: no clubbing cyanosis. No edema - ECOG Performance Status ECOG Score: 0 Results - Labs Labs: Diagram of Most Recent CBC and CMP 01/19/21 09:05 01/01/20 11:27 Assessment and Plan (1) Iron deficiency anemia Qualifiers: Iron deficiency anemia type: other iron deficiency Qualified Code(s): D50.8- Other iron deficiency anemias 71 year old female with chronic iron deficiency most likely secondary to bleeding from AVMs. She has required recurrent IV iron infusions throughout the last 1.5 years. 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 Rivera at [facility] September 2021 follow-up labs at [facility] with again low iron saturation at 3.5%, ferritin 15 and hemoglobin 6.6. She received 2 doses of Feraheme as well as 2 units PRBCs at [facility] 10/24/2021: She feels much better after receiving IV iron last month. She did nothave any labs drawn this month, but notes a considerable difference in her energy and dyspnea on exertion. She continues with occasional melena. She is concerned that following up every 3 months is too long to wait currently, since she usually is deficient and has to get blood transfusions as well by the time she is evaluated again. I encouraged her to call in anytime she feels that her fatigue and/or dyspnea is worsened, or if she notes increased dark stools and wecan have her seen sooner and get additional labs. 11/24/2021: Improved hemoglobin to 9.4 but still persistent fatigue and iron saturation still 3.9% I recommended repeat infusion of Injectafer 510mg x 2 doses. --Adding Octreotide LAR 20mg IM monthly to prevent recurrent bleeding from AVMs given persistent anemia--she is not on any anticoagulant or antiplatelet therapy. We will have her follow-up in 6 weeks with [facility] and will plan for repeat iron studies and a cbc at that time. She is in agreement with this plan and had no further questions. Moderate complexity for transfer of care and adding Octreotide LAR with iron infusions. 01/05/2022: She continues with fatigue and persistent low counts despite 1 dose ofFeraheme and Octreotide in November. She denies any bleeding anywhere, no melena, and has had no medication changes since her last visit. She had a reaction to the Octreotide and does not want any additional doses. We will plan to replete with additional 2 doses of Feraheme and will follow-up with cbc, iron studies and ferritin in 6 weeks. She is in agreement with this plan and has no additional questions. 02/15/2022: She notes improved fatigue; s/p recent Feraheme x 2 doses on 01/16/2022 and 01/23/2022. Hemoglobin levels improved from 9.1-10.5; iron saturation improved from 5% to 9%; ferritin improved from 23-75. Historically, the patient requires parenteral iron infusion on average every 2-3 months. Clinically, patient is feeling better and reports improved leg pain and improvedfatigue. -Follow-up in 2 months with clinic visit and repeat laboratories; patient knows to call sooner if she experiences any issues prior to scheduled appointment. 06/06/2022: Janine now has recurrent fatigue and dyspnea with exertion. She hasreceived multiple doses of Feraheme over the last 2 years, Injectafer in 2019. She has known history of angiodysplasia but was unable to tolerate octreotide LAR due to cramping abdominal pain. She has not had any visible bright red blood per rectum and most recent EGD/colonoscopy was May 2021 with capsular endoscopy July 2021 confirming angiodysplasia. Due to her persistent symptoms and anemia with hemoglobin 11.7 and iron saturation 13% we will prepareFeraheme 510 mg IV x2 doses over the next 2 weeks. Since she requires frequent surveillance, we will repeat her visit with CBC, serum iron profile, and ferritin in early August to see if she has had recurrent iron deficiency. May continue follow-up with myself and nurse practitioner. 08/09/2022: Janine is here for interval 2 month follow up to review most recent laboratories. Clinically, she is fatigued, chronically. Denies any significant shortness of breath, palpitations, chest pain, melena, hematochezia or BRBPR. Last iron infusion with Feraheme was 2 months ago. As noted previously, she has declined further Octreotide therapy due to intolerable side effects related to first injection given x 1 on 11/30/2021. Most recent laboratories from [facility] dated 08/06/2022 reveal hemoglobin - 10.7; ferritin- 34 and iron saturation - 5.9%. - she continues to require frequent surveillance with need for intravenous iron infusions every 2-3 months. - will arrange for Feraheme replacement today; follow up in ~ 2 months with repeat labs (CBC, iron studies + ferritin)- sooner if new or worsening symptoms. (2) Angiodysplasia of small intestine Persistent iron deficiency anemia despite multiple iron infusions over the past year. Attempted Octreotide LAR 20mg IM monthly to prevent recurrent bleeding from AVMs documented on capsular endoscopy in 07/2021. 11/30/2021: Given first Octreotide 20 mg LAR IM injection with multiple GI side effects, abdominal pain, nausea, cramping --declines further therapy. She currently has no s/s of bleeding. Will continue repletion with intravenous Feraheme and monitor closely. iven her known AVM in the small intestine she will continue to require frequent iron infusions. She is not taking any anti-inflammatories and is not on any blood thinners. (3) B12 deficiency She is getting B12 injection monthly with PCP. (4) Hiatal hernia - Time with Patient Time Spent with Patient (Follow Up Visit): 25 minutes Coordination of Care & Counseling Time: Greater than 50% of time spent with patient was for coordination of care (as documented) and mjud-la-ceit counseling of patient and/or family. Dictated By: Gertrudis Louis APRN DD/ [id number] Signed By: <Electronically signed by SONIA Louis> 08/09/22 1411 [facility] Work Phone: Progress note Author Shiela Chan [facility] January 08, 2023 2:18pm Note Date/Time January 08, 2023 2:14p m [facility] [place] [address] Hem/Onc Follow Up Note - OP Signed Patient: Janine Conde MR#: [id number] : 1950 Acct:[id number] Age/Sex: 72 / F Type: REG RCR Copies to: DO Ricky Jordan MD~ Date of Service: 01/08/2023 Time of Service: 14:13 - Assessment & Plan (1) Iron deficiency anemia Plan: 71 year old female with chronic iron deficiency most likely secondary to bleeding from AVMs. She has required recurrent IV iron infusions throughout the last 1.5 years. 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 Rivera at [facility] September 2021 follow-up labs at [facility] with again low iron saturation at 3.5%, ferritin 15 and hemoglobin 6.6. She received 2 doses of Feraheme as well as 2 units PRBCs at [facility] 10/24/2021: She feels much better after receiving IV iron last month. She did nothave any labs drawn this month, but notes a considerable difference in her energy and dyspnea on exertion. She continues with occasional melena. She is concerned that following up every 3 months is too long to wait currently, since she usually is deficient and has to get blood transfusions as well by the time she is evaluated again. I encouraged her to call in anytime she feels that her fatigue and/or dyspnea is worsened, or if she notes increased dark stools and wecan have her seen sooner and get additional labs. 11/24/2021: Improved hemoglobin to 9.4 but still persistent fatigue and iron saturation still 3.9% I recommended repeat infusion of Injectafer 510mg x 2 doses. --Adding Octreotide LAR 20mg IM monthly to prevent recurrent bleeding from AVMs given persistent anemia--she is not on any anticoagulant or antiplatelet therapy. We will have her follow-up in 6 weeks with [facility] and will plan for repeat iron studies and a cbc at that time. She is in agreement with this plan and had no further questions. Moderate complexity for transfer of care and adding Octreotide LAR with iron infusions. 01/05/2022: She continues with fatigue and persistent low counts despite 1 dose ofFeraheme and Octreotide in November. She denies any bleeding anywhere, no melena, and has had no medication changes since her last visit. She had a reaction to the Octreotide and does not want any additional doses. We will plan to replete with additional 2 doses of Feraheme and will follow-up with cbc, iron studies and ferritin in 6 weeks. She is in agreement with this plan and has no additional questions. 02/15/2022: She notes improved fatigue; s/p recent Feraheme x 2 doses on 01/16/2022 and 01/23/2022. Hemoglobin levels improved from 9.1-10.5; iron saturation improved from 5% to 9%; ferritin improved from 23-75. Historically, the patient requires parenteral iron infusion on average every 2-3 months. Clinically, patient is feeling better and reports improved leg pain and improvedfatigue. -Follow-up in 2 months with clinic visit and repeat laboratories; patient knows to call sooner if she experiences any issues prior to scheduled appointment. 06/06/2022: Janine now has recurrent fatigue and dyspnea with exertion. She hasreceived multiple doses of Feraheme over the last 2 years, Injectafer in 2019. She has known history of angiodysplasia but was unable to tolerate octreotide LAR due to cramping abdominal pain. She has not had any visible bright red blood per rectum and most recent EGD/colonoscopy was May 2021 with capsular endoscopy July 2021 confirming angiodysplasia. Due to her persistent symptoms and anemia with hemoglobin 11.7 and iron saturation 13% we will prepareFeraheme 510 mg IV x2 doses over the next 2 weeks. Since she requires frequent surveillance, we will repeat her visit with CBC, serum iron profile, and ferritin in early August to see if she has had recurrent iron deficiency. May continue follow-up with myself and nurse practitioner. 08/09/2022: Janine is here for interval 2 month follow up to review most recent laboratories. Clinically, she is fatigued, chronically. Denies any significant shortness of breath, palpitations, chest pain, melena, hematochezia or BRBPR. Last iron infusion with Feraheme was 2 months ago. As noted previously, she has declined further Octreotide therapy due to intolerable side effects related to first injection given x 1 on 11/30/2021. Most recent laboratories from [facility] dated 08/06/2022 reveal hemoglobin - 10.7; ferritin- 34 and iron saturation - 5.9%. - she continues to require frequent surveillance with need for intravenous iron infusions every 2-3 months. - will arrange for Feraheme replacement today; follow up in ~ 2 months with repeat labs (CBC, iron studies + ferritin)- sooner if new or worsening symptoms. 11/14/2022: She continues with fatigue and dyspnea on exertion. In September was admitted for 2-3 days with anemia at [facility] and received transfusional support. Current labs reveal low iron with saturation 5.2%, ferritin 10 and her hemoglobin is 9.3. We will plan to replete with IV Injectafer (switch from previous Feraheme) and will repeat cbc, cmp and iron studies in 2 months with follow-up. She is in agreement with this plan and has no questions. 01/08/2023: She has improvement in symptoms- fatigue is better, she is not significantly dyspneic. She does have some dark stool this week, no other s/s ofbleeding. Labs are improving but not normalized; hgb 10.9, iron saturation 12% and ferritin 109. We will give additional IV Injectafer and plan for follow-up with repeat labs in 2 months, sooner as needed. She and her are in agreement with this plan and have no questions. (2) Angiodysplasia of small intestine (3) B12 deficiency (4) Hiatal hernia Follow Up Instructions: IV Injectafer (1 dose next week, the other once they return from vacation) cbc, cmp, iron studies in 2mo follow-up in 2mo - History of Present Illness Chief Complaint: Patient is here today for a 2 month follow up visit for iron deficiency anemia and go ovr labs HPI: 11/07/2022: Janine presents for follow-up for her iron deficiency anemia. She continues with increased fatigue and dyspnea on exertion. She denies black, tarry stool or other s/s of bleeding. No other new symptoms. She notes she was admitted at [facility] end of September for anemia and received a couple of units of blood while there. No active bleeding found at that time and iron studies WNL during admission. Iron studies currently low, will plan repletion with IV iron and will follow-up with labs in 2 months, sooner if needed. 08/09/2022: Janine is here for interval 2 month follow up to review most recent laboratories. Clinically, she is fatigued, chronically. Denies any significant shortness of breath, palpitations, chest pain, melena, hematochezia or BRBPR. Last iron infusion with Feraheme was 2 months ago. As noted previously, she has declined further Octreotide therapy due to intolerable side effects related to first injection given x 1 on 11/30/2021. Most recent laboratories from [facility] dated 08/06/2022 reveal hemoglobin - 10.7; ferritin- 34 and iron saturation - 5.9%. 06/06/2022: Here to review iron studies after her most recent Feraheme infusions in April 2022. I reviewed all of her iron infusions over the last 2 years. She previously received Injectafer 750 mg IV for total of 8 infusions during 2019. During 2020 she received Feraheme twice in January. She had capsule endoscopy with Dr. Elias in July 2021 which confirmed evidence of angiodysplasia. Also on EGD and colonoscopy May 2021 she had a large hiatalhernia with Schatzki's ring and diverticulosis. Recommendation was for trial ofoctreotide LAR in late November 2021 which she tolerated poorly. Since then she received iron infusions 6 times over the last 6 months. She has not had any melena or bright red blood per rectum. She continues to experience fatigue withactivities and her most recent labs at [facility] 06/04/2022 showed hemoglobin 11.7 with serum iron low 42.8, iron saturation 13.4, and ferritin 48. We are preparing iron infusion today with Feraheme 510 mg IV x2 weekly infusions. Since she has required about 3 infusions/year with the last infusiononly 2 months ago, we will repeat her CBC and iron studies in August 2022 although she may return sooner if she has symptomatic anemia. She may follow- upwith Dr. Elias as needed. 02/15/2022: Patient is here for 1 month follow up; s/p repeat Feraheme infusion ~4 weeks ago. On 01/03/2022 her hemoglobin was noted to be 9.1; ferritin 23.0; iron saturation 5%. She was subsequently given 01/16/2022 and 01/23/2022. Repeatlabs indicate modest improvement of hemoglobin from 9.1-10.5; ferritin now 75.0;iron saturation improved to 9%. As noted below, patient has had multiple EGD/colonoscopy procedures and wireless capsule endoscopy x2; with last WCE in July 2021. 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 She did trial a one-time dose of octreotide LAR 20 mg IM on 11/30/2021. She reported very poor tolerance to the injection citing significant abdominal pain, cramping, nausea and vomiting. Clinically, she is doing well and feeling well, in regards to energy levels and fatigue. Will continue close follow up. 01/05/2022: Janine presents for follow-up of her iron deficiency anemia. She continues to be fatigued and gets dyspneic easily on exertion. She denies this at rest, though. She denies dark stool, bright red blood per rectum, hematuria, coffee ground emesis or other sites of bleeding. She denies fevers, chills, sweats, weight loss, abdominal pain, diarrhea or constipation. She did have quite a bit of nausea, vomiting, and abdominal/back cramping and pain after her first dose of octreotide last month. She refuses any additional doses, even withpremedications offered. She only received 1 dose of Feraheme at that time. On review, her labs from [facility] reveal hgb 9.0 and iron saturation 5%. We will plan for repeat Feraheme x 2 doses and will follow-up in 6 weeks again for repeat labs 11/24/2021: She is here for follow-up today and transfer of followup (previouslyfollowed by Dr. Anam Abarca). She reports improved energy since most recent RBC transfusion and iron infusions at [place] but persistent fatigue. She still has episodes of light-headedness. She denies vertiginous symptoms and is okay driving. She denies fevers, chills, night sweats or unexplained weight loss. She admits to small amounts of blood in the stool but has a history of hemorrhoids. She has been on chronic PPI therapy for many years and takes it daily. She is on B12 supplementation. Her CBC from 10/2021 revealed a HGB of 7.7 g/dL, MCV 74, RDW 21%. No iron panel was reported. Labs from [place] 11/22/2021 with improved hemoglobin to 9.4 but still low iron saturation 3.9% and ferritin 20. 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 Followup with [facility] in 6 weeks to review iron studies after Feraheme 510mg x 2 doses and Octreotide LAR 20mg IM monthly. 04/28/21 (Dr. Anam Abarca) feels ok today, energy stable denies any bleeding, denies ice cravings continues to take PPI daily, hemorrhoids under control denies any lightheadedness iron continues to be low, so will recommend updated scopes 10/24/2021 (YAZAN Chan) her energy is much improved after receiving Feraheme in September at [facility] she has her labs done at [facility] as well, none done this month for review she continues to note melena on occasion, not every day last colonoscopy and EGD done 05/15/21 revealing large hiatal hernia, hemorrhoids and Schatzki's Ring. She had a capsule endoscopy done 07/05/21 that showed angioectasia small bowel she denies any recent bleeding from hemorrhoids, these are well controlled she feels well overall without complaints beyond the continued melena 11/07/2022: Janine presents for follow-up for her iron deficiency anemia. She continues with increased fatigue and dyspnea on exertion. She denies black, tarry stool or other s/s of bleeding. No other new symptoms. She notes she was admitted at [facility] end of September for anemia and received a couple of units of blood while there. No active bleeding found at that time and iron studies WNL during admission. Iron studies currently low, will plan repletion with IV iron and will follow-up with labs in 2 months, sooner if needed. 01/08/23 she feels much improved since her last doses of Injectafer energy is good, she denies shortness of breath, chest pain or other new complaints this week has noted a few episodes of dark stool labs improving but not normal. hgb 10.9, iron sat 12% and ferritin 109 - Physical Exam ECOG PS: 0 General : patient is alert and oriented to person place and time, no acute distress. HEENT: no scleral icterus, no oral lesions Neck: no JVD or thyromegaly. Lymph: no cervical, supraclavicular, axillary adenopathy. Heart: regular rate and rhythm no murmurs rubs or gallops. Abdomen: soft nontender nondistended, no hepatosplenomegaly. Lungs: clear to auscultation bilaterally. No wheezes, rales, rhonchi. Extremities: no clubbing cyanosis. No edema - Time with Patient Coordination of Care & Counseling Time: Greater than 50% of time spent with patient was for coordination of care (as documented) and [id number] counseling of patient and/or family. [facility] - Medical History Medical History: Medical History (Last Reviewed 06/06/22 @ 10:20 by Taina Toussaint MD) Anemia Anxiety Depression GERD (gastroesophageal reflux disease) - Surgical History Surgical History: Surgical History (Last Reviewed 06/06/22 @ 10:20 by Taina Toussaint MD) H/O: hysterectomy History of bunionectomy Hx of cholecystectomy - Family History Family History: Family History (Last Reviewed 06/06/22 @ 10:20 by Taina Toussaint MD) Son No problems noted. Mother Pancreatitis Diabetes Father Emphysema of lung - Social History Smoking Status: Former smoker Tobacco Type: cigarettes Substance Use Type: None Additional Data - Additional Objective Data Height/Weight: Height 5 ft 6 in Weight 115.212 kg BSA for Today's Weight 2.38 Vital Signs: 01/08/23 13:33 Temperature 97.8 F Pulse Rate [Left Brachial] 84 Respiratory Rate 16 Blood Pressure [Left Arm] 132/64 02 Sat by Pulse Oximetry 98 Oxygen Delivery Method Room Air - Lab Results Diagram of Most Recent CBC and CMP 01/19/21 09:05 01/01/20 11:27 - Home Medications and Allergies Allergies/Adverse Reactions: Allergies No Known Allergies Allergy (Verified 01/08/23 13:32) Home Medications: Home Medications trazodone 100 mg tablet 1 tab PO HS 06/20/19 [History Confirmed 01/08/23] venlafaxine 150 mg capsule,extended release 24 hr 150 mg PO DAILY 06/20/19 [History Confirmed 01/08/23] clonazepam 0.5 mg tablet 0.5 mg PO BID #0 tabs 06/23/19 [Rx Confirmed 01/08/23] buspirone 5 mg tablet 5 mg PO BID 06/22/21 [History Confirmed 01/08/23] Dictated By: Shiela Chan APRN DD/ [id number] Signed By: <Electronically signed by POLICY VALUE CALCULATOR Shiela Chan> 01/08/23 1418 [facility] Work Phone: Progress note Author Shiela Chan [facility] March 12, 2023 3:30pm Note Date/Time March 12, 2023 1:3 3pm [facility] [place] [address] Hem/Onc Follow Up Note - OP Signed Patient: Janine Conde MR#: [id number] : 1950 Acct:[id number] Age/Sex: 72 / F Type: REG RCR Copies to: MD Shalom Leslie DO Lawrence R Mccormack, MD~ Date of Service: 03/12/2023 Time of Service: 13:33 - Assessment & Plan (1) Iron deficiency anemia Plan: 71 year old female with chronic iron deficiency most likely secondary to bleeding from AVMs. She has required recurrent IV iron infusions throughout the last 1.5 years. 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 Rivera at [facility] September 2021 follow-up labs at [facility] with again low iron saturation at 3.5%, ferritin 15 and hemoglobin 6.6. She received 2 doses of Feraheme as well as 2 unitsPRBCs at [facility] 10/24/2021: She feels much better after receiving IV iron last month. She did nothave any labs drawn this month, but notes a considerable difference in her energy and dyspnea on exertion. She continues with occasional melena. She is concerned that following up every 3 months is too long to wait currently, since she usually is deficient and has to get blood transfusions as well by the time she is evaluated again. I encouraged her to call in anytime she feels that her fatigue and/or dyspnea is worsened, or if she notes increased dark stools and wecan have her seen sooner and get additional labs. 11/24/2021: Improved hemoglobin to 9.4 but still persistent fatigue and iron saturation still 3.9% I recommended repeat infusion of Injectafer 510mg x 2 doses. --Adding Octreotide LAR 20mg IM monthly to prevent recurrent bleeding from AVMs given persistent anemia--she is not on any anticoagulant or antiplatelet therapy. We will have her follow-up in 6 weeks with [facility] and will plan for repeat iron studies and a cbc at that time. She is in agreement with this plan and had no further questions. Moderate complexity for transfer of care and adding Octreotide LAR with iron infusions. 01/05/2022: She continues with fatigue and persistent low counts despite 1 dose ofFeraheme and Octreotide in November. She denies any bleeding anywhere, no melena, and has had no medication changes since her last visit. She had a reaction to the Octreotide and does not want any additional doses. We will plan to replete with additional 2 doses of Feraheme and will follow-up with cbc, iron studies and ferritin in 6 weeks. She is in agreement with this plan and has no additional questions. 02/15/2022: She notes improved fatigue; s/p recent Feraheme x 2 doses on 01/16/2022 and 01/23/2022. Hemoglobin levels improved from 9.1-10.5; iron saturation improved from 5% to 9%; ferritin improved from 23-75. Historically, the patient requires parenteral iron infusion on average every 2-3 months. Clinically, patient is feeling better and reports improved leg pain and improvedfatigue. -Follow-up in 2 months with clinic visit and repeat laboratories; patient knows to call sooner if she experiences any issues prior to scheduled appointment. 06/06/2022: Janine now has recurrent fatigue and dyspnea with exertion. She hasreceived multiple doses of Feraheme over the last 2 years, Injectafer in 2019. She has known history of angiodysplasia but was unable to tolerate octreotide LAR due to cramping abdominal pain. She has not had any visible bright red blood per rectum and most recent EGD/colonoscopy was May 2021 with capsular endoscopy July 2021 confirming angiodysplasia. Due to her persistent symptoms and anemia with hemoglobin 11.7 and iron saturation 13% we will prepareFeraheme 510 mg IV x2 doses over the next 2 weeks. Since she requires frequent surveillance, we will repeat her visit with CBC, serum iron profile, and ferritin in early August to see if she has had recurrent iron deficiency. May continue follow-up with myself and nurse practitioner. 08/09/2022: Janine is here for interval 2 month follow up to review most recent laboratories. Clinically, she is fatigued, chronically. Denies any significant shortness of breath, palpitations, chest pain, melena, hematochezia or BRBPR. Last iron infusion with Feraheme was 2 months ago. As noted previously, she has declined further Octreotide therapy due to intolerable side effects related to first injection given x 1 on 11/30/2021. Most recent laboratories from [facility] dated 08/06/2022 reveal hemoglobin - 10.7; ferritin- 34 and iron saturation - 5.9%. - she continues to require frequent surveillance with need for intravenous iron infusions every 2-3 months. - will arrange for Feraheme replacement today; follow up in ~ 2 months with repeat labs (CBC, iron studies + ferritin)- sooner if new or worsening symptoms. 11/14/2022: She continues with fatigue and dyspnea on exertion. In September was admitted for 2-3 days with anemia at [facility] and received transfusional support. Current labs reveal low iron with saturation 5.2%, ferritin 10 and her hemoglobin is 9.3. We will plan to replete with IV Injectafer (switch from previous Feraheme) and will repeat cbc, cmp and iron studies in 2 months with follow-up. She is in agreement with this plan and has no questions. 01/08/2023: She has improvement in symptoms- fatigue is better, she is not significantly dyspneic. She does have some dark stool this week, no other s/s ofbleeding. Labs are improving but not normalized; hgb 10.9, iron saturation 12% and ferritin 109. We will give additional IV Injectafer and plan for follow-up with repeat labs in 2 months, sooner as needed. She and her are in agreement with this plan and have no questions. 03/12/2023: She continues to feel pretty well overall, but her iron and hemoglobinremain low. She is not having any black, tarry stools or other s/s of bleeding. We discussed her persistent CONSUELO, and reviewed her previous Octreotide issues. She notes she had nausea and vomiting a few hours after she received the Octreotide previously and did not want to try that medication again. She is open to trying lanreotide if insurance approves, and if we can premedicate her with this. We will discuss with Dr. Toussaint and follow-up with the patient. She will receive additional IV Injectafer x 2 and will repeat labs in 1month with follow-up. We will also refer her back to Dr. Benson as she is agreeable to this now. (2) Angiodysplasia of small intestine Plan: Persistent iron deficiency anemia despite multiple iron infusions over the past year. Attempted Octreotide LAR 20mg IM monthly to prevent recurrent bleeding from AVMs documented on capsular endoscopy in 07/2021. 11/30/2021: Given first Octreotide 20 mg LAR IM injection with multiple GI side effects, abdominal pain, nausea, cramping --declines further therapy. She currently has no s/s of bleeding. Will continue repletion with intravenous Feraheme and monitor closely. Given her known AVM in the small intestine she will continue to require frequentiron infusions. She is not taking any anti-inflammatories and is not on any blood thinners. 11/07/2022: She continues to decline Octreotide therapy 03/12/2023: She will be referred back to Dr. Benson for re-evaluation as she continues to require regular iron infusions. We discussed her previous reaction to Octreotide including nausea and vomiting once she got home. She is open to trying Lanreotide with premedication if insurance approves. We will consider this (3) B12 deficiency Plan: She is getting B12 injection monthly with PCP. (4) Hiatal hernia Follow Up Instructions: IV Injectafer x 2 cbc, cmp, iron studies in 1mo follow-up in 1mo refer back to Dr. Benson - History of Present Illness Chief Complaint: Patient is here today for a 2 month follow up visit for iron deficiency anemia and go over labs HPI: 11/07/2022: Janine presents for follow-up for her iron deficiency anemia. She continues with increased fatigue and dyspnea on exertion. She denies black, tarry stool or other s/s of bleeding. No other new symptoms. She notes she was admitted at [facility] end of September for anemia and received a couple of units of blood while there. No active bleeding found at that time and iron studies WNL during admission. Iron studies currently low, will plan repletion with IV iron and will follow-up with labs in 2 months, sooner if needed. 08/09/2022: Janine is here for interval 2 month follow up to review most recent laboratories. Clinically, she is fatigued, chronically. Denies any significant shortness of breath, palpitations, chest pain, melena, hematochezia or BRBPR. Last iron infusion with Feraheme was 2 months ago. As noted previously, she has declined further Octreotide therapy due to intolerable side effects related to first injection given x 1 on 11/30/2021. Most recent laboratories from [facility] dated 08/06/2022 reveal hemoglobin - 10.7; ferritin- 34 and iron saturation - 5.9%. 06/06/2022: Here to review iron studies after her most recent Feraheme infusions in April 2022. I reviewed all of her iron infusions over the last 2 years. She previously received Injectafer 750 mg IV for total of 8 infusions during 2019. During 2020 she received Feraheme twice in January. She had capsule endoscopy with Dr. Elias in July 2021 which confirmed evidence of angiodysplasia. Also on EGD and colonoscopy May 2021 she had a large hiatalhernia with Schatzki's ring and diverticulosis. Recommendation was for trial ofoctreotide LAR in late November 2021 which she tolerated poorly. Since then she received iron infusions 6 times over the last 6 months. She has not had any melena or bright red blood per rectum. She continues to experience fatigue withactivities and her most recent labs at [facility] 06/04/2022 showed hemoglobin 11.7 with serum iron low 42.8, iron saturation 13.4, and ferritin 48. We are preparing iron infusion today with Feraheme 510 mg IV x2 weekly infusions. Since she has required about 3 infusions/year with the last infusiononly 2 months ago, we will repeat her CBC and iron studies in August 2022 although she may return sooner if she has symptomatic anemia. She may follow- upwith Dr. Elias as needed. 02/15/2022: Patient is here for 1 month follow up; s/p repeat Feraheme infusion ~4 weeks ago. On 01/03/2022 her hemoglobin was noted to be 9.1; ferritin 23.0; iron saturation 5%. She was subsequently given 01/16/2022 and 01/23/2022. Repeatlabs indicate modest improvement of hemoglobin from 9.1-10.5; ferritin now 75.0;iron saturation improved to 9%. As noted below, patient has had multiple EGD/colonoscopy procedures and wireless capsule endoscopy x2; with last WCE in July 2021. 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 She did trial a one-time dose of octreotide LAR 20 mg IM on 11/30/2021. She reported very poor tolerance to the injection citing significant abdominal pain, cramping, nausea and vomiting. Clinically, she is doing well and feeling well, in regards to energy levels and fatigue. Will continue close follow up. 01/05/2022: Janine presents for follow-up of her iron deficiency anemia. She continues to be fatigued and gets dyspneic easily on exertion. She denies this at rest, though. She denies dark stool, bright red blood per rectum, hematuria, coffee ground emesis or other sites of bleeding. She denies fevers, chills, sweats, weight loss, abdominal pain, diarrhea or constipation. She did have quite a bit of nausea, vomiting, and abdominal/back cramping and pain after her first dose of octreotide last month. She refuses any additional doses, even withpremedications offered. She only received 1 dose of Feraheme at that time. On review, her labs from [facility] reveal hgb 9.0 and iron saturation 5%. We will plan for repeat Feraheme x 2 doses and will follow-up in 6 weeks again for repeat labs 11/24/2021: She is here for follow-up today and transfer of followup (previouslyfollowed by Dr. Anam Abarca). She reports improved energy since most recent RBC transfusion and iron infusions at [facility] but persistent fatigue. She still has episodes of light-headedness. She denies vertiginous symptoms and is okay driving. She denies fevers, chills, night sweats or unexplained weight loss. She admits to small amounts of blood in the stool but has a history of hemorrhoids. She has been on chronic PPI therapy for many years and takes it daily. She is on B12 supplementation. Her CBC from 10/2021 revealed a HGB of 7.7 g/dL, MCV 74, RDW 21%. No iron panel was reported. Labs from [facility] 11/22/2021 with improved hemoglobin to 9.4 but still low iron saturation 3.9% and ferritin 20. 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 Followup with [facility] in 6 weeks to review iron studies after Feraheme 510mg x 2 doses and Octreotide LAR 20mg IM monthly. 04/28/21 (Dr. Anam Abarca) feels ok today, energy stable denies any bleeding, denies ice cravings continues to take PPI daily, hemorrhoids under control denies any lightheadedness iron continues to be low, so will recommend updated scopes 10/24/2021 (YAZAN Chan) her energy is much improved after receiving Feraheme in September at [facility] she has her labs done at [facility] as well, none done this month for review she continues to note melena on occasion, not every day last colonoscopy and EGD done 05/15/21 revealing large hiatal hernia, hemorrhoids and Schatzki's Ring. She had a capsule endoscopy done 07/05/21 that showed angioectasia small bowel she denies any recent bleeding from hemorrhoids, these are well controlled she feels well overall without complaints beyond the continued melena 11/07/2022: Janine presents for follow-up for her iron deficiency anemia. She continues with increased fatigue and dyspnea on exertion. She denies black, tarry stool or other s/s of bleeding. No other new symptoms. She notes she was admitted at [facility] end of September for anemia and received a couple of units of blood while there. No active bleeding found at that time and iron studies WNL during admission. Iron studies currently low, will plan repletion with IV iron and will follow-up with labs in 2 months, sooner if needed. 01/08/23 she feels much improved since her last doses of Injectafer energy is good, she denies shortness of breath, chest pain or other new complaints this week has noted a few episodes of dark stool labs improving but not normal. hgb 10.9, iron sat 12% and ferritin 109 03/12/23 she continues to feel pretty well, denies significant fatigue recently returned from vacation and did not have issues with energy while there,stayed pretty active she denies shortness of breath, chest pain, black or tarry stool labs with persistent low iron- saturation 6.9%, ferritin 76 and hgb 10.3 - Physical Exam ECOG PS: 0 General : patient is alert and oriented to person place and time, no acute distress. HEENT: no scleral icterus, no oral lesions Neck: no JVD or thyromegaly. Lymph: no cervical, supraclavicular, axillary adenopathy. Heart: regular rate and rhythm no murmurs rubs or gallops. Abdomen: soft nontender nondistended, no hepatosplenomegaly. Lungs: clear to auscultation bilaterally. No wheezes, rales, rhonchi. Extremities: no clubbing cyanosis. No edema - Time with Patient Coordination of Care & Counseling Time: Greater than 50% of time spent with patient was for coordination of care (as documented) and [id number] counseling of patient and/or family. [facility] - Medical History Medical History: Medical History (Last Reviewed 06/06/22 @ 10:20 by Taina Toussaint MD) Anemia Anxiety Depression GERD (gastroesophageal reflux disease) - Surgical History Surgical History: Surgical History (Last Reviewed 06/06/22 @ 10:20 by Taina Toussaint MD) H/O: hysterectomy History of bunionectomy Hx of cholecystectomy - Family History Family History: Family History (Last Reviewed 06/06/22 @ 10:20 by Taina Toussaint MD) Son No problems noted. Mother Pancreatitis Diabetes Father Emphysema of lung - Social History Smoking Status: Former smoker Tobacco Type: cigarettes Substance Use Type: None Additional Data - Additional Objective Data Height/Weight: Height 5 ft 6 in Weight 112.491 kg BSA for Today's Weight 2.38 Vital Signs: 03/12/23 13:03 Temperature 97.8 F Pulse Rate [Left Brachial] 75 Respiratory Rate 16 Blood Pressure [Left Arm] 111/53 L 02 Sat by Pulse Oximetry 100 Oxygen Delivery Method Room Air - Lab Results Diagram of Most Recent CBC and CMP 01/19/21 09:05 01/01/20 11:27 - Home Medications and Allergies Allergies/Adverse Reactions: Allergies No Known Allergies Allergy (Verified 03/12/23 13:02) Home Medications: Home Medications trazodone 100 mg tablet 1 tab PO HS 06/20/19 [History Confirmed 03/12/23] venlafaxine 150 mg capsule,extended release 24 hr 150 mg PO DAILY 06/20/19 [History Confirmed 03/12/23] clonazepam 0.5 mg tablet 0.5 mg PO BID #0 tabs 06/23/19 [Rx Confirmed 03/12/23] buspirone 5 mg tablet 5 mg PO BID 06/22/21 [History Confirmed 03/12/23] Dictated By: Shiela Chan APRN DD/ [id number] Signed By: <Electronically signed by SONIA Chan> 03/12/23 1530 [facility] Work Phone: Progress note Author Shiela Chan [facility] August 13, 2023 1:27pm Note Date/Time August 13, 2023 1: 13pm [facility] [place] [address] Hem/Onc Follow Up Note - OP Signed Patient: Janine Conde MR#: [id number] : 1950 Acct:[id number] Age/Sex: 72 / F Type: REG RCR Copies to: DO Ricky Jordan MD~ Date of Service: 08/13/2023 Time of Service: 13:12 - Assessment & Plan (1) Iron deficiency anemia Plan: 72 year old female with chronic iron deficiency most likely secondary to bleeding from AVMs. She has required recurrent IV iron infusions throughout the last 1.5 years. Repeat colonoscopy and EGD on 05/15/2021 reveal a large hiatal hernia, hemorrhoids, and Schatzki's Ring Capsule endoscopy on 07/05/2021 showed angioectasia of the small bowel 11/24/2021: Improved hemoglobin to 9.4 but still persistent fatigue and iron saturation still 3.9% I recommended repeat infusion of Injectafer 510mg x 2 doses. --Added Octreotide LAR 20mg IM monthly to prevent recurrent bleeding from AVMs given persistent anemia--she is not on any anticoagulant or antiplatelet therapy. We will have her follow-up in 6 weeks with [facility] and will plan for repeat iron studies and a cbc at that time. She is in agreement with this plan and had no further questions. Moderate complexity for transfer of care and adding Octreotide LAR with iron infusions. 01/05/2022: She continues with fatigue and persistent low counts despite 1 dose ofFeraheme and Octreotide in November. She denies any bleeding anywhere, no melena, and has had no medication changes since her last visit. She had a reaction to the Octreotide and does not want any additional doses (abdominal pain and nausea). We will plan to replete with additional 2 doses of Feraheme and will follow-up with cbc, iron studies and ferritin in 6 weeks. She is in agreement with this plan and has no additional questions. 11/14/2022: She continues with fatigue and dyspnea on exertion. In September was admitted for 2-3 days with anemia at [facility] and received transfusional support. Current labs reveal low iron with saturation 5.2%, ferritin 10 and her hemoglobin is 9.3. We will plan to replete with IV Injectafer (switch from previous Feraheme) and will repeat cbc, cmp and iron studies in 2 months with follow-up. She is in agreement with this plan and has no questions. 03/12/2023: She continues to feel pretty well overall, but her iron and hemoglobinremain low. She is not having any black, tarry stools or other s/s of bleeding. We discussed her persistent CONSUELO, and reviewed her previous Octreotide issues. She notes she had nausea and vomiting a few hours after she received the Octreotide previously and did not want to try that medication again. She is opento trying lanreotide if insurance approves, and if we can premedicate her with this. We will discuss with Dr. Toussaint and follow-up with the patient. She will receive additional IV Injectafer x 2 and will repeat labs in 1month with follow-up. We will also refer her back to Dr. Benson as she is agreeable to this now. 04/26/2023: Persistent anemia and low iron sat despite 5 separate round of parenteral iron (Feraheme, then Injectafer) since August. She has not yet beenseen by GI. I recommended repeat EGD/colonoscopy, possible push enteroscopy forinterventions on any visible AVMs. If they agree, we will give a trial of Lanreotide next month. Moderate complexity 30 minute followup. 06/13/2023: Now following sixth round of parenteral iron in early May, hemoglobin is up to 12 but persistent low iron saturation of 13. She did note some dark stools for 2 days and has recurrent weakness. Given her increased bleeding propensity and persistent low iron saturation, we will set up 2 more infusions of Injectafer 750 mg twice daily. We reviewed her EGD results showingfracture of Schatzki's ring with improved dysphagia, hiatal hernia with Freedom ulcers. She is compliant with pantoprazole 40 mg twice daily that was started by Dr. Elias along with clonidine 0.1 mg daily. Blood pressure and heart rate are stable but she does have some generalized weakness today. We will defer her next follow-up with iron studies to 8 weeks following her Injectafer infusions, sooner if new symptoms arise. If she has stable hemoglobin and iron studies at her 8-week follow-up, we may extend her follow-up surveillance labs every 3 months. Moderate complexity 30-minute follow-up. 08/13/2023: She continues to do well without new complaints. Energy is good, no s/s of bleeding. Her labs are stable and no need for any additional iron at thistime. She will continue on her pantoprazole and clonidine from Dr. Benson forher Freedom ulcer and AVMs. She also continues on monthly B12 injections thru Dr. Hayward. We will follow-up in 3 months with repeat cbc, cmp, iron studies. She and are in agreement with this plan and have no questions. (2) Chronic Freedom ulcer (3) Angiodysplasia of small intestine (4) B12 deficiency (5) Hiatal hernia Follow Up Instructions: cbc, cmp, iron studies in 3mo follow-up in 3mo - History of Present Illness Chief Complaint: Patient is here for a 2 month follow up with labs for review. Last dose of Iron was 07/01/23. HPI: 08/13/23 She is doing very well, has good energy She states since starting on pantoprazole and clonidine that things have been great denies any s/s of bleeding including black or tarry stool no shortness of breath or chest pain. eating and drinking well she is planning to start walking on her treadmill now that she feels well. hgb 13, iron sat 32.9%, ferritin 348 06/13/2023: Janine is here for 6 week followup after repeat Injectafer after last visit (05/02 and 05/09) due to labs 04/24/2023 showing persistent anemia with hemoglobin 8.4 iron saturation 6.3% and ferritin 94. She was referred back to Dr. Elias of gastroenterology who performed EGD on 05/15/2023. She was found to have a Schatzki's ring that was fractured with a pediatric colonoscope with further evaluation showing a large hiatal hernia and Freedom ulcers. Otherwise normal small bowel to the mid jejunum. He recommended starting pantoprazole 40 mg twice daily and low-dose clonidine to stop several GI losses. Her most recent laboratories 06/11/2023 show hemoglobin is up to 12.1 with iron saturation 13.9% and ferritin 121. She noted initial improvement in energy but notes that she feels some generalized weakness over the last week. She noted about 2 weeks ago that she had dark stools for 2 days that then resolved. Due to her persistent low iron saturation and symptomatic weakness, despite improvement of her hemoglobin we will give her 2 further doses of Injectafer 750mg IV and recheck her CBC and iron saturation with ferritin in 2 months. If shehas normal iron studies at that time and no new symptoms we may extend her follow-up to every 3 months. If she has recurrent iron deficiency I may refer her back to gastroenterology for capsule endoscopy for further work-up. This ross moderate complexity 30-minute follow-up to review gastroenterology evaluation and outside labs. 04/26/2023: Janine is here for followup after most recent Injectafer infusions. She has received Feraheme x 2 in Aug 2022, Injectafer in November/January/March 2023. Followup labs at [facility] show hemoglobin 8.4 with iron saturation 6.3% and ferritin 94. She has persistent fatigue and dyspnea on exertion, therefore we are coordinating another 2 weekly doses of Injectafer andreferring her back to gastroenterology for repeat EGD/colonoscopy and capsular endoscopy. She will f/u with me in 6 weeks with repeat labs and results of GI workup (possible push endoscopy with intervention if AVMs found). Moderate complexity 30 minute followup. 03/12/23 she continues to feel pretty well, denies significant fatigue recently returned from vacation and did not have issues with energy while there,stayed pretty active she denies shortness of breath, chest pain, black or tarry stool labs with persistent low iron- saturation 6.9%, ferritin 76 and hgb 10.3 01/08/23 she feels much improved since her last doses of Injectafer energy is good, she denies shortness of breath, chest pain or other new complaints this week has noted a few episodes of dark stool labs improving but not normal. hgb 10.9, iron sat 12% and ferritin 109 11/07/2022: Janine presents for follow-up for her iron deficiency anemia. She continues with increased fatigue and dyspnea on exertion. She denies black, tarry stool or other s/s of bleeding. No other new symptoms. She notes she was admitted at [facility] end of September for anemia and received a couple of units of blood while there. No active bleeding found at that time and iron studies WNL during admission. Iron studies currently low, will plan repletion with IV iron and will follow-up with labs in 2 months, sooner if needed. 08/09/2022: Janine is here for interval 2 month follow up to review most recent laboratories. Clinically, she is fatigued, chronically. Denies any significant shortness of breath, palpitations, chest pain, melena, hematochezia or BRBPR. Last iron infusion with Feraheme was 2 months ago. As noted previously, she has declined further Octreotide therapy due to intolerable side effects related to first injection given x 1 on 11/30/2021. Most recent laboratories from [facility] dated 08/06/2022 reveal hemoglobin - 10.7; ferritin- 34 and iron saturation - 5.9%. 06/06/2022: Here to review iron studies after her most recent Feraheme infusions in April 2022. I reviewed all of her iron infusions over the last 2 years. She previously received Injectafer 750 mg IV for total of 8 infusions during 2019. During 2020 she received Feraheme twice in January. She had capsule endoscopy with Dr. Elias in July 2021 which confirmed evidence of angiodysplasia. Also on EGD and colonoscopy May 2021 she had a large hiatalhernia with Schatzki's ring and diverticulosis. Recommendation was for trial ofoctreotide LAR in late November 2021 which she tolerated poorly. Since then she received iron infusions 6 times over the last 6 months. She has not had any melena or bright red blood per rectum. She continues to experience fatigue withactivities and her most recent labs at [facility] 06/04/2022 showed hemoglobin 11.7 with serum iron low 42.8, iron saturation 13.4, and ferritin 48. We are preparing iron infusion today with Feraheme 510 mg IV x2 weekly infusions. Since she has required about 3 infusions/year with the last infusion only2 months ago, we will repeat her CBC and iron studies in August 2022 although she may return sooner if she has symptomatic anemia. She may follow-up with as needed. 02/15/2022: Patient is here for 1 month follow up; s/p repeat Feraheme infusion ~4 weeks ago. On 01/03/2022 her hemoglobin was noted to be 9.1; ferritin 23.0; iron saturation 5%. She was subsequently given 01/16/2022 and 01/23/2022. Repeatlabs indicate modest improvement of hemoglobin from 9.1-10.5; ferritin now 75.0;iron saturation improved to 9%. As noted below, patient has had multiple EGD/colonoscopy procedures and wireless capsule endoscopy x2; with last WCE in July 2021. 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 She did trial a one-time dose of octreotide LAR 20 mg IM on 11/30/2021. She reported very poor tolerance to the injection citing significant abdominal pain, cramping, nausea and vomiting. Clinically, she is doing well and feeling well, in regards to energy levels and fatigue. Will continue close follow up. 01/05/2022: Janine presents for follow-up of her iron deficiency anemia. She continues to be fatigued and gets dyspneic easily on exertion. She denies this at rest, though. She denies dark stool, bright red blood per rectum, hematuria, coffee ground emesis or other sites of bleeding. She denies fevers, chills, sweats, weight loss, abdominal pain, diarrhea or constipation. She did have quite a bit of nausea, vomiting, and abdominal/back cramping and pain after her first dose of octreotide last month. She refuses any additional doses, even withpremedications offered. She only received 1 dose of Feraheme at that time. On review, her labs from [facility] reveal hgb 9.0 and iron saturation 5%. We will plan for repeat Feraheme x 2 doses and will follow-up in 6 weeks again for repeat labs 11/24/2021: She is here for follow-up today and transfer of followup (previouslyfollowed by Dr. Anam Abarca). She reports improved energy since most recent RBC transfusion and iron infusions at [facility] but persistent fatigue. She still has episodes of light-headedness. She denies vertiginous symptoms and is okay driving. She denies fevers, chills, night sweats or unexplained weight loss. She admits to small amounts of blood in the stool but has a history of hemorrhoids. She has been on chronic PPI therapy for many years and takes it daily. She is on B12 supplementation. Her CBC from 10/2021 revealed a HGB of 7.7 g/dL, MCV 74, RDW 21%. No iron panel was reported. Labs from [facility] 11/22/2021 with improved hemoglobin to 9.4 but still low iron saturation 3.9% and ferritin 20. 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 Followup with [facility] in 6 weeks to review iron studies after Feraheme 510mg x 2 doses and Octreotide LAR 20mg IM monthly. 10/24/2021 (YAZAN Chan) her energy is much improved after receiving Feraheme in September at [facility] she has her labs done at [facility] as well, none done this month for review she continues to note melena on occasion, not every day last colonoscopy and EGD done 05/15/21 revealing large hiatal hernia, hemorrhoids and Schatzki's Ring. She had a capsule endoscopy done 07/05/21 that showed angioectasia small bowel she denies any recent bleeding from hemorrhoids, these are well controlled she feels well overall without complaints beyond the continued melena 04/28/21 (Dr. Anam Abarca) feels ok today, energy stable denies any bleeding, denies ice cravings continues to take PPI daily, hemorrhoids under control denies any lightheadedness iron continues to be low, so will recommend updated scopes - Physical Exam General : patient is alert and oriented to person place and time, no acute distress. Heart: regular rate and rhythm no murmurs rubs or gallops. Lungs: clear to auscultation bilaterally. No wheezes, rales, rhonchi. Extremities: no clubbing cyanosis. No edema - Time with Patient Coordination of Care & Counseling Time: Greater than 50% of time spent with patient was for coordination of care (as documented) and [id number] counseling of patient and/or family. [facility] - Medical History Medical History: Medical History (Last Reviewed 06/13/23 @ 15:00 by Taina Toussaint MD) Anemia Anxiety Depression GERD (gastroesophageal reflux disease) - Surgical History Surgical History: Surgical History (Last Reviewed 06/13/23 @ 15:00 by Taina Toussaint MD) H/O: hysterectomy History of bunionectomy Hx of cholecystectomy - Family History Family History: Family History (Last Reviewed 06/13/23 @ 15:00 by Taina Toussaint MD) Son No problems noted. Mother Pancreatitis Diabetes Father Emphysema of lung - Social History Smoking Status: Never smoker Tobacco Type: cigarettes Substance Use Type: None Additional Data - Additional Objective Data Height/Weight: Height 5 ft 6 in Weight 111.674 kg BSA for Today's Weight 2.38 Vital Signs: 08/13/23 12:57 Pulse Rate [Left Brachial] 76 Respiratory Rate 20 Blood Pressure [Left Arm] 124/77 02 Sat by Pulse Oximetry 99 Oxygen Delivery Method Room Air - Lab Results Diagram of Most Recent CBC and CMP 01/19/21 09:05 01/01/20 11:27 - Home Medications and Allergies Allergies/Adverse Reactions: Allergies No Known Allergies Allergy (Verified 08/13/23 12:56) Home Medications: Home Medications trazodone 100 mg tablet 1 tab PO HS 06/20/19 [History Confirmed 08/13/23] venlafaxine 150 mg capsule,extended release 24 hr 150 mg PO DAILY 06/20/19 [History Confirmed 08/13/23] clonazepam 0.5 mg tablet 0.5 mg PO BID #0 tabs 06/23/19 [Rx Confirmed 08/13/23] buspirone 5 mg tablet 5 mg PO BID 06/22/21 [History Confirmed 08/13/23] clonidine HCl 0.1 mg tablet 0.1 mg PO BID 05/15/23 [History Confirmed 08/13/23] pantoprazole 40 mg tablet,delayed release 40 mg PO BID 6 months #60 tabs 05/15/23 [Rx Confirmed 08/13/23] dicyclomine 10 mg capsule 10 mg PO TID 08/13/23 [History Confirmed 08/13/23] Dictated By: Shiela Chan APRN DD/ [id number] Signed By: <Electronically signed by SONIA Chan> 08/13/23 1327 [facility] Work Phone: Summary Purpose Family History Relationship Condition Age at Onset Recorded Date/T rojelio Not Specified Pancreatitis Unknown Diabetes mellitus Unknown father Pulmonary emphysema Unknown Advance Directives Advance Directive Response Recorded Date/ Time Advance Directives No June 9:19pm Advance Directive Response Recorded Date/ Time Advance Directives No June 10:19pm Chief Complaint and Reason for Visit Chief Complaint Iron Def, anemia Reason for Visit Skin lesion Angiodysplasia of small intestine B12 deficiency Hiatal hernia Iron deficiency anemia Obesity, morbid, BMI 40.0-49.9 Chief Complaint Iron Def, anemia iron defiency anemia Reason for Visit Skin lesion Angiodysplasia of small intestine B12 deficiency Hiatal hernia Iron deficiency anemia Obesity, morbid, BMI 40.0-49.9 Chief Complaint iron defiency anemia Iron Def, anemia Reason for Visit Skin lesion Angiodysplasia of small intestine B12 deficiency Hiatal hernia Iron deficiency anemia Obesity, morbid, BMI 40.0-49.9 Chief Complaint Iron Def, anemia Reason for Visit Skin lesion Angiodysplasia of small intestine B12 deficiency Chronic Freedom ulcer Hiatal hernia Iron deficiency anemia Obesity, morbid, BMI 40.0-49.9 Reason for Referral Reason Mrs. Conde is bein g referred for breast reduction surgery Diagnosis 1 Macromastia (N62) Referral Organization [facility] Mainor boucher Referring Provider First Name Shalom Referring Provider Last Name Mainor Referring Provider Specialty Internal Me dicine Referred Organization [facility] Referred Provider Gm Johnson Referred Address [address],[place], [place],[address] Referred Provider Specialty Plastic and Reconstructive Surgery Referral Priority Routine General Notes Mrs. Conde has req uested referral for reduction mammoplasty. She has enlarged breast and experiences daily discomfort in her breast and mid thoracic spine. She also c/o daily pain in her neck and shoulders. She has been considering this procedure for years and she is now motivated to seek treatment. Additional Source Comments INFORMATION SOURCE (unrecogn ized section and content) DATE CREATED AUTHOR 04/17/2022 [facility] DATE CREATED AUTHOR AUTHOR'S ORGANIZ ATION [facility]/10/2022 [facility] DATE CREATED AUTHOR AUTHOR'S ORGANIZ ATION 08/14/2023 [facility] Care Teams (unrecognized sec tion and content) Team Status: Active Member Role Status Dates Shalom Hayward , DO Primary Care Provider Active Team Status: Active Member Role Status Dates Shalom Hayward , DO Primary Care Provider Active Ricky Benson MD Referring Provider Active Taina Toussaint MD Attending Provider Active Team Status: Inactive Member Role Status Dates Shalom Hayward , DO Primary Care Provider Active Ricky Benson MD Attending Provider Active Goals (unrecognized section and content) Goals may be documented in a n alternate sectionNo InformationNo InformationNo InformationNo InformationNo InformationNo InformationNo InformationNo InformationNo InformationNo InformationNo InformationNo InformationNo InformationNo InformationNo InformationNo InformationNo InformationNo InformationNo InformationNo Information REASON FOR VISIT (unrecogniz ed section and content) [id number] up[facility] UPMedication ChangeB-12 Shot6 WEEK FOLLOW [id number] here at the request of Shiela Chan NP for iron deficiency anemiaNo InformationNo [id number] SHOTPatient here for follow up EGD6 month Follow upB-12 SHOT FOR RECORDS PERTAINING TO PATIENTS WHO ARE OR HAVE BEEN ENROLLED IN A CHEMICAL DEPENDENCY/SUBSTANCEABUSE PROGRAM, SOME INFORMATION MAY BE OMITTED. This clinical summary was aggregated from multiple sources. Caution should be exercised in using it in the provision of clinical care. This summary normalizes information from multiple sources, and as a consequence, information in this document may materially change the coding, format and clinical context of patient data. In addition, data may be omitted in some cases. CLINICAL DECISIONS SHOULD BE BASED ON THE PRIMARY CLINICAL RECORDS. [facility]. provides no warranty or guarantee of the accuracy or completeness of information in this document.
[2023-10-21 06:32] LABS: INR 0.94; Partial Thromboplastin Time 23.8 sec (22.3-36.2)
[2023-10-21 06:37] LABS: Alanine Aminotransferase 18 U/L (14-59); Albumin Globulin Ratio 0.8; Alkaline Phosphatase 118 U/L (46-116); Aspartate Amino Transferase 14 U/L (15-37); BUN Creatinine Ratio 30.8; Bilirubin Total 0.4 mg/dL (0.2-1.0); Calcium 8.1 mg/dL (8.5-10.1); Chloride 106 mmol/L (98-107); Estimated GFR (African America >60 (>=60); Estimated GFR (Non-African Ame >60 (>=60); Globulin 3.6 g/dL; Glucose 124 mg/dL (74-106); Sodium 143 mmol/L (136-145); Total Protein 6.6 g/dL (6.4-8.2)
[2023-10-21 06:38] LABS: Troponin I High Sensitivity <4.0 pg/mL (4.0-51.3)
[2023-10-21 06:41] LABS: Lactate/Lactic Acid 6.7 mmol/L (0.4-2.0)
[2023-10-21 06:55] LABS: PROCALCITONIN <0.05 ng/mL (0.00-0.50)
[2023-10-21 08:06] LABS: Bilirubin Urine NEGATIVE (NEGATIVE); Blood Urine SMALL (NEGATIVE); Clarity Urine CLEAR (CLEAR); Color Urine LT. YELLOW (YELLOW); Glucose Urine UA NEGATIVE (NEGATIVE); Ketones Urine >=80 mg/dL (NEGATIVE); Leukocyte Esterase Urine NEGATIVE (NEGATIVE); Nitrite Urine NEGATIVE (NEGATIVE); Protein Urine NEGATIVE (NEG/TRACE); Specific Gravity Urine 1.025 (1.005-1.025); Urobilinogen Urine 0.2 EU/dL (0.2-1.0)
[2023-10-21 08:07] LABS: Urine Microscopic Indicated YES
[2023-10-21] MEDS: PROMETHAZINE HCL 25 MG/ML VIAL 12.5 MG IV (08:14)
[2023-10-21 08:29] LABS: Bacteria Urine NONE SEEN #/HPF (NONE SEEN); Cast Seen? SEEN #/LPF (NONE SEEN); Crystals Seen? None Seen #/HPF (None Seen); Hyaline Casts Urine RARE; Mucus Urine NONE SEEN (NONE SEEN); Squamous Epithelial Cell Urine RARE #/LPF (NONE/RARE); WBC Urine 0-2 #/HPF (NONE SEEN)
[2023-10-21 08:30] LABS: Urine Culture Indicated NO
--- OUTSIDE RECORDS SUMMARY | 2023-10-21 08:57 | XMS_ITS | CCD ---
Author Name Unknown Address [address] [place] [address] Organization [facility] Care Team Providers Care Cert Occupational Therapy Asst Name Role Phone Dr. 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 [facility] Eosinophils Auto (Bld) [#/Vo l]Ordered By: Ricky Benson on 05-15-2023 Eosinophils (Bld) [#/Vol] 0.1 10*3/uL 0.0-0.45 [facility] Eosinophils/100 WBC Auto (Bl d)Ordered By: Ricky Benson on 05-15-2023 Eosinophils/100 WBC (Bld) 1.8 % . [facility] Erythrocyte distribution wid th Auto (RBC) [Ratio]Ordered By: Ricky Benson on 05-15-2023 Erythrocyte distribution width (RBC) [Ratio] 25.6 % 11.9-15.3 [facility] Hematocrit Auto (Bld) [Volum e fraction]Ordered By: Ricky Benson on 05-15-2023 Hematocrit (Bld) [Volume fraction] 28.8 % 34.0-46.4 [facility] Hemoglobin [Mass/volume] in BloodOrdered By: Ricky Benson on 05-15-2023 Hemoglobin (Bld) [Mass/Vol] 8.7 g/dL 11.8-15.4 [facility] Hypochromia LM Ql (Bld)Order ed By: Ricky Benson on 05-15-2023 Hypochromia Ql (Bld) Moderate [facility] Leukocytes [#/volume] correc eugenia for nucleated erythrocytes in Blood by Automated counOrdered By: Ricky Benson on 05-15-2023 WBC corrected for nucl RBC Auto (Bld) [#/Vol] 4.4 10*3/uL 3.8-11.6 [facility] Lymphocytes Auto (Bld) [#/Vo l]Ordered By: Ricky Benson on 05-15-2023 Lymphocytes (Bld) [#/Vol] 0.7 10*3/uL 1.00-4.8 [facility] Lymphocytes/100 WBC Auto (Bl d)Ordered By: Ricky Benson on 05-15-2023 Lymphocytes/100 WBC (Bld) 16.9 % . [facility] MCH Auto (RBC) [Entitic mass ]Ordered By: Ricky Benson on 05-15-2023 MCH (RBC) [Entitic mass] 28.1 pg 24.7-34.3 [facility] MCHC Auto (RBC) [Mass/Vol]Or dered By: Ricky Benson on 05-15-2023 MCHC (RBC) [Mass/Vol] 30.2 g/dL 32.0-35.0 [facility] MCV Auto (RBC) [Entitic vol] Ordered By: Ricky Benson on 05-15-2023 MCV (RBC) [Entitic vol] 93.1 fL 80-100 [facility] Monocytes Auto (Bld) [#/Vol] Ordered By: Ricky Benson on 05-15-2023 Monocytes (Bld) [#/Vol] 0.3 10*3/uL 0.0-0.8 [facility] Monocytes/100 WBC Auto (Bld) Ordered By: Ricky Benson on 05-15-2023 Monocytes/100 WBC (Bld) 6.2 % . [facility] Neutrophils Auto (Bld) [#/Vo l]Ordered By: Ricky Benson on 05-15-2023 Neutrophils (Bld) [#/Vol] 3.2 10*3/uL 1.8-7.7 [facility] Neutrophils/100 WBC Auto (Bl d)Ordered By: Ricky Benson on 05-15-2023 Neutrophils/100 WBC (Bld) 73.6 % . [facility] Nucleated erythrocytes [Pres ence] in Blood by Automated countOrdered By: Ricky Benson on 05-15-2023 Nucleated RBC Auto Ql (Bld) 0.2 /100{WBC} 0-0.5 [facility] Ovalocyte detectionOrdered B y: Ricky Benson on 05-15-2023 Ovalocytes LM Ql (Bld) Slight [facility] Platelet adequacy [Presence] in Blood by Light microscopyOrdered By: Ricky Benson on 05-15-2023 Platelets LM Ql (Bld) Normal Normal [facility] Platelet mean volume Auto (B ld) [Entitic vol]Ordered By: Ricky Benson on 05-15-2023 Platelet mean volume (Bld) [Entitic vol] 8.6 fL 6.3-10.7 [facility] Platelet morphology finding [Identifier] in BloodOrdered By: Ricky Benson on 05-15-2023 Platelet morphology finding Nom (Bld) Normal Normal [facility] Platelets Auto (Bld) [#/Vol] Ordered By: Ricky Benson on 05-15-2023 Platelets (Bld) [#/Vol] 231 10*3/uL 150-450 [facility] Poikilocytosis [Presence] in Blood by Light microscopyOrdered By: Ricky Benson on 05-15-2023 Poikilocytosis LM Ql (Bld) Moderate [facility] Polychromasia [Presence] in Blood by Light microscopyOrdered By: Ricky Benson on 05-15-2023 Polychromasia LM Ql (Bld) Slight [facility] RBC Auto (Bld) [#/Vol]Ordere d By: Ricky Benson on 05-15-2023 RBC (Bld) [#/Vol] 3.09 10*6/uL 3.60-5.00 [facility] RBC morphologyOrdered By: Carissa Benson on 05-15-2023 RBC morphology finding Nom (Bld) N/A [facility] Scan and CBCon 05-15-2023 Anisocytosis Ql (Bld) Moderate Normal [facility] Comment on above: Performed By: #### S CAN CBC #### [facility] [address] [place] [address] [place] Basophils (Bld) [#/Vol] 0.1 10*3/uL Normal 0.0-0.2 [facility] Comment on above: Performed By: #### S CAN CBC #### [facility] [address] [place] [address] [place] Basophils/100 WBC (Bld) 1.5 % Normal . [facility] Comment on above: Performed By: #### S CAN CBC #### [facility] [address] [place] [address] [place] Eosinophils (Bld) [#/Vol] 0.1 10*3/uL Normal 0.0-0.45 [facility] Comment on above: Performed By: #### S CAN CBC #### [facility] [address] [place] [address] [place] Eosinophils/100 WBC (Bld) 1.8 % Normal . [facility] Comment on above: Performed By: #### S CAN CBC #### [facility] [address] [place] [address] [place] Erythrocyte distribution width (RBC) [Ratio] 25.6 % High 11.9-15.3 [facility] Comment on above: Performed By: #### S CAN CBC #### [facility] [address] Hematocrit (Bld) [Volume fraction] 28.8 % Low 34.0-46.4 [facility] Comment on above: Performed By: #### S CAN CBC #### [facility] [address] Hemoglobin (Bld) [Mass/Vol] 8.7 g/dL Low 11.8-15.4 [facility] Comment on above: Performed By: #### S CAN CBC #### [address] Hypochromasia Moderate Normal [facility] Comment on above: Performed By: #### S CAN CBC #### [address] Lymphocytes (Bld) [#/Vol] 0.7 10*3/uL Low 1.00-4.8 [facility] Comment on above: Performed By: #### S CAN CBC #### [address] Lymphocytes/100 WBC (Bld) 16.9 % Normal . [facility] Comment on above: Performed By: #### S CAN CBC #### [address] MCH (RBC) [Entitic mass] 28.1 pg Normal 24.7-34.3 [facility] Comment on above: Performed By: #### S CAN CBC #### [address] MCV (RBC) [Entitic vol] 93.1 fL Normal 80-100 [facility] Comment on above: Performed By: #### S CAN CBC #### [address] Mean Corpuscular HGB Conc 30.2 g/dL Low 32.0-35.0 [facility] Comment on above: Performed By: #### S CAN CBC #### [place] [address] [place] Monocytes (Bld) [#/Vol] 0.3 10*3/uL Normal 0.0-0.8 [facility] Comment on above: Performed By: #### S CAN CBC #### [place] [address] [place] Monocytes/100 WBC (Bld) 6.2 % Normal . [facility] Comment on above: Performed By: #### S CAN CBC #### [place] [address] [place] Neutrophils (Bld) [#/Vol] 3.2 10*3/uL Normal 1.8-7.7 [facility] Comment on above: Performed By: #### S CAN CBC #### [place] [address] [place] Neutrophils/100 WBC (Bld) 73.6 % Normal . [facility] Comment on above: Performed By: #### S CAN CBC #### [address] NRBC% 0.2 /100{WBC} Normal 0-0.5 [facility] Comment on above: Performed By: #### S CAN CBC #### [address] Ovalocytes Slight Normal [facility] Comment on above: Performed By: #### S CAN CBC #### [address] Platelet Estimate Normal Normal Normal [facility] Comment on above: Performed By: #### S CAN CBC #### [address] Platelet mean volume (Bld) [Entitic vol] 8.6 fL Normal 6.3-10.7 [facility] Comment on above: Performed By: #### S CAN CBC #### [address] Platelet Morphology Normal Normal Normal [facility] Comment on above: Result Comment: PERF ORMED BY: [place] [address] PATHOLOGIST COMPLIANCE AIDE KENNETH GOMEZ M.D. Performed By: #### S CAN CBC #### [place] [address] [place] Platelets (Bld) [#/Vol] 231 10*3/uL Normal 150-450 [facility] Comment on above: Performed By: #### S CAN CBC #### [address] Poikilocytosis Moderate Normal [facility] Comment on above: Performed By: #### S CAN CBC #### [facility] [address] [place] [address] Polychromasia Slight Normal [facility] Comment on above: Performed By: #### S CAN CBC #### [facility] [address] [place] [address] RBC (Bld) [#/Vol] 3.09 10*6/uL Low 3.60-5.00 [facility] Comment on above: Performed By: #### S CAN CBC #### [address] Tear Drop Cells Slight Normal [facility] Comment on above: Performed By: #### S CAN CBC #### [facility] [address] [place] [address] WBC (Bld) [#/Vol] 4.4 10*3/uL Normal 3.8-11.6 [facility] Comment on above: Performed By: #### S CAN CBC #### [address] Teardrop cell detectionOrder ed By: Ricky Benson on 05-15-2023 Dacrocytes LM Ql (Bld) Slight Fi [facility] WBC Auto (Bld) [#/Vol]Ordere d By: Ricky Benson on 05-15-2023 WBC (Bld) [#/Vol] 4.4 10*3/uL 3.8-11.6 [facility] CBC AUTO DIFFon 11-05-2022 BASO # 0.1 103/ul Normal 0.0-0.1 [facility] Comment on above: Performed By: #### C BC #### [facility] [address] [address] [address] Sherry Quezada Basophils/100 WBC (Bld) 1.4 % Normal 0.2-2.0 [facility] Comment on above: Performed By: #### C BC #### [facility] [address] [address] [address] Sherry Quezada EO # 0.1 103/ul Normal 0.0-0.7 [facility] Comment on above: Performed By: #### C BC #### [facility] [address] [place] [address] Dr. Sherry Quezada Eosinophils/100 WBC (Bld) 2.5 % Normal 0.9-7.0 [facility] Comment on above: Performed By: #### C BC #### [facility] [address] [place] [address] Dr. Sherry Quezada Erythrocyte distribution width (RBC) [Ratio] 16.5 % Critically high 11.0-15.0 [facility] Comment on above: Performed By: #### C BC #### [facility] [address] [place] [address] Dr. Sherry Quezada Hematocrit (Bld) [Volume fraction] 32.1 % Critically low 36.0-48.0 [facility] Comment on above: Performed By: #### C BC #### [facility] [address] [place] [address] Dr. Sherry Quezada Hemoglobin (Bld) [Mass/Vol] 9.3 g/dL Critically low 12.0-16.0 [facility] Comment on above: Performed By: #### C BC #### [facility] [address] [place] [address] Dr. Sherry Quezada IG # 0.01 10e3/ul Normal 0.00-0.03 [facility] Comment on above: Performed By: #### C BC #### [facility] [address] [place] [address] Dr. Sherry Quezada IG % 0.2 % Normal 0.0-0.5 [facility] Comment on above: Performed By: #### C BC #### [facility] [address] [place] [address] Dr. Sherry Quezada LYMPH # 1.3 103/ul Normal 1.2-3.8 [facility] Comment on above: Performed By: #### C BC #### [facility] [address] [place] [address] Dr. Sherry Quezada Lymphocytes/100 WBC (Bld) 22.2 % Normal 20.5-60.0 [facility] Comment on above: Performed By: #### C BC #### [facility] [address] [place] [address] Dr. Sherry Quezada MANUAL DIFF REQ NO Normal [facility] Comment on above: Performed By: #### C BC #### [facility] [address] [place] [address] Dr. Sherry Quezada MCH (RBC) [Entitic mass] 24.4 pg Critically low 26.7-34.0 [facility] Comment on above: Performed By: #### C BC #### [facility] [address] [place] [address] Dr. Sherry Quezada MCHC (RBC) [Mass/Vol] 29.0 g/dL Critically low 29.9-35.2 [facility] Comment on above: Performed By: #### C BC #### [facility] [address] [place] [address] Dr. Sherry Quezada MCV (RBC) [Entitic vol] 84.3 fL Normal 81.0-99.0 [facility] Comment on above: Performed By: #### C BC #### [facility] [address] [place] [address] Dr. Sherry Quezada MONO # 0.5 103/ul Normal 0.3-0.8 [facility] Comment on above: Performed By: #### C BC #### [facility] [address] [place] [address] Dr. Sherry Quezada Monocytes/100 WBC (Bld) 9.1 % Normal 1.7-12.0 [facility] Comment on above: Performed By: #### C BC #### [facility] [address] [place] [address] Dr. Sherry Quezada NEUT # 3.7 103/ul Normal 1.4-6.5 [facility] Comment on above: Performed By: #### C BC #### [facility] [address] [place] [address] Dr. Sherry Quzeada Neutrophils/100 WBC (Bld) 64.6 % Normal 43.0-75.0 [facility] Comment on above: Performed By: #### C BC #### [facility] [address] [address] [address] Sherry Quezada Platelet mean volume (Bld) [Entitic vol] 11.0 fL Normal 9.5-13.5 [facility] Comment on above: Performed By: #### C BC #### [facility] [address] [place] [address] Dr. Sherry Quezada PLT 261 103/ul Normal 150-450 [facility] Comment on above: Performed By: #### C BC #### [facility] [address] [address] [address] Sherry Quezada RBC 3.81 106/ul Critically low 4.20-5.40 [facility] Comment on above: Performed By: #### C BC #### [facility] [address] [place] [address] Dr. Sherry Quezada WBC 5.7 103/ul Normal 4.0-11.0 [facility] Comment on above: Performed By: #### C BC #### [facility] [address] [place] [address] Dr. Sherry Quezada FERRITINon 11-05-2022 Ferritin [Mass/Vol] 10.0 ng/mL Normal 8.0-252.0 [facility] Comment on above: Performed By: #### C BC #### [facility] [address] [place] [address] Dr. Sherry Quezada IRON AND TIBCon 11-05-2022 % SATURATION 5.2 % Normal [facility] Comment on above: Performed By: #### C BC #### [facility] [address] [place] [address] Dr. Sherry Quezada Iron [Mass/Vol] 20.0 ug/dL Critically low 50.0-170.0 [facility] Comment on above: Performed By: #### C BC #### [facility] [address] [place] [address] Dr. Sherry Quezada TIBC DIRECT 388.0 ug/dL Normal 250.0-450.0 [facility] Comment on above: Performed By: #### C BC #### [facility] [address] [place] [address] Dr. Sherry Quezada PRBC LEUKOREDUCEDon 10-10-19 ABO and Rh group Nom (Bld) Cross Match Result Compatible Unit Blood Type A Pos Unit Number [id number] Status Information Transfused Product ID Red Blood Cells Product Code [id number] Cross Match Result Compatible Blood Bank Notes CALLED SHAHLA [place] [address] Unit Blood Type A Pos Unit Number [id number] Status Information Transfused Product ID Red Blood Cells Product Code [id number] Normal [facility] Comment on above: Performed By: #### T SH #### [facility] [address] [place] [address] Dr. Sherry Quezada ABO and Rh group Nom (Bld) Cross Match Result Compatible Unit Blood Type A Pos Unit Number [id number] Status Information Transfused Product ID Red Blood Cells Product Code [id number] Cross Match Result Compatible Unit Blood Type A Pos Unit Number [id number] Status Information Transfused Product ID Red Blood Cells Product Code [id number] Normal [facility] Comment on above: Performed By: #### T SH #### [facility] [address] [place] [address] Dr. Sherry Quezada CBC AUTO DIFFon 10-02-2022 BASO # 0.0 103/ul Normal 0.0-0.1 [facility] Comment on above: Performed By: #### T SH #### [facility] [address] [place] [address] Dr. Sherry Quezada Basophils/100 WBC (Bld) 0.7 % Normal 0.2-2.0 [facility] Comment on above: Performed By: #### T SH #### [facility] [address] [place] [address] Dr. Sherry Quezada EO # 0.2 103/ul Normal 0.0-0.7 [facility] Comment on above: Performed By: #### T SH #### [facility] [address] [place] [address] Dr. Sherry Quezada Eosinophils/100 WBC (Bld) 2.5 % Normal 0.9-7.0 [facility] Comment on above: Performed By: #### T SH #### [facility] [address] [place] [address] Dr. Sherry Quezada Erythrocyte distribution width (RBC) [Ratio] 16.4 % Critically high 11.0-15.0 [facility] Comment on above: Performed By: #### T SH #### [facility] [address] [place] [address] Dr. Sherry Quezada Hematocrit (Bld) [Volume fraction] 31.3 % Critically low 36.0-48.0 [facility] Comment on above: Performed By: #### T SH #### [facility] [address] [place] [address] Dr. Sherry Quezada Hemoglobin (Bld) [Mass/Vol] 9.9 g/dL Critically low 12.0-16.0 [facility] Comment on above: Performed By: #### T SH #### [facility] [address] [place] [address] Dr. Sherry Quezada IG # 0.02 10e3/ul Normal 0.00-0.03 [facility] Comment on above: Performed By: #### T SH #### [facility] [address] [place] [address] Dr. Sherry Quezada IG % 0.3 % Normal 0.0-0.5 [facility] Comment on above: Performed By: #### T SH #### [facility] [address] [place] [address] Dr. Sherry Quezada LYMPH # 1.1 103/ul Critically low 1.2-3.8 [facility] Comment on above: Performed By: #### T SH #### [facility] [address] [place] [address] Dr. Sherry Quezada Lymphocytes/100 WBC (Bld) 17.9 % Critically low 20.5-60.0 [facility] Comment on above: Performed By: #### T SH #### [facility] [address] [place] [address] Dr. Sherry Quezada MANUAL DIFF REQ NO Normal [facility] Comment on above: Performed By: #### T SH #### [facility] [address] [address] [address] Sherry Quezada MCH (RBC) [Entitic mass] 27.1 pg Normal 26.7-34.0 [facility] Comment on above: Performed By: #### T SH #### [facility] [address] [place] [address] Dr. Sherry Quezada MCHC (RBC) [Mass/Vol] 31.6 g/dL Normal 29.9-35.2 [facility] Comment on above: Performed By: #### T SH #### [facility] [address] [place] [address] Dr. Sherry Quezada MCV (RBC) [Entitic vol] 85.8 fL Normal 81.0-99.0 [facility] Comment on above: Performed By: #### T SH #### [facility] [address] [place] [address] Dr. Sherry Quezada MONO # 0.6 103/ul Normal 0.3-0.8 [facility] Comment on above: Performed By: #### T SH #### [facility] [address] [place] [address] Dr. Sherry Quezada Monocytes/100 WBC (Bld) 9.4 % Normal 1.7-12.0 [facility] Comment on above: Performed By: #### T SH #### [facility] [address] [place] [address] Dr. Sherry Quezada NEUT # 4.1 103/ul Normal 1.4-6.5 [facility] Comment on above: Performed By: #### T SH #### [facility] [address] [place] [address] Dr. Sherry Quezada Neutrophils/100 WBC (Bld) 69.2 % Normal 43.0-75.0 [facility] Comment on above: Performed By: #### T SH #### [facility] [address] [place] [address] Dr. Sherry Quezada Platelet mean volume (Bld) [Entitic vol] 10.7 fL Normal 9.5-13.5 [facility] Comment on above: Performed By: #### T SH #### [facility] [address] [place] [address] Dr. Sherry Quezada PLT 220 103/ul Normal 150-450 [facility] Comment on above: Performed By: #### T SH #### [facility] [address] [place] [address] Dr. Sherry Quezada RBC 3.65 106/ul Critically low 4.20-5.40 [facility] Comment on above: Performed By: #### T SH #### [facility] [address] [place] [address] Dr. Sherry Quezada WBC 5.9 103/ul Normal 4.0-11.0 [facility] Comment on above: Performed By: #### T SH #### [facility] [address] [place] [address] Dr. Sherry Quezada HEMOGLOBIN AND HEMATOCRITon 10-02-2022 Hematocrit (Bld) [Volume fraction] 30.6 % Critically low 36.0-48.0 [facility] Comment on above: Performed By: #### C BC #### [facility] [address] [place] [address] Dr. Sherry Quezada Hemoglobin (Bld) [Mass/Vol] 9.9 g/dL Critically low 12.0-16.0 [facility] Comment on above: Performed By: #### C BC #### [facility] [address] [place] [address] Dr. Sherry Quezada MAGNESIUMon 10-02-2022 Magnesium [Mass/Vol] 1.9 mg/dL Normal 1.8-2.4 [facility] Comment on above: Performed By: #### C VDTBH #### [facility] [address] [place] [address] Dr. Sherry Quezada PROF 14(COMP METB)on 023 Albumin [Mass/Vol] 2.7 g/dL Critically low 3.4-5.0 [facility] Comment on above: Performed By: #### C VDTBH #### [facility] [address] [place] [address] Dr. Sherry Quezada Albumin/Globulin [Mass ratio] 1.0 {ratio} Normal [facility] Comment on above: Performed By: #### C VDTBH #### [facility] [address] [address] [address] Sherry Quezada ALP [Catalytic activity/Vol] 74 U/L Normal 46-116 [facility] Comment on above: Performed By: #### C VDTBH #### [facility] [address] [address] [address] Sherry Quezada ALT [Catalytic activity/Vol] 13 U/L Critically low 14-59 [facility] Comment on above: Performed By: #### C VDTBH #### [facility] [address] [place] [address] Dr. Sherry Quezada Anion gap [Moles/Vol] 9.6 mmol/L Normal [facility] Comment on above: Performed By: #### C VDTBH #### [facility] [address] [place] [address] Dr. Sherry Quezada AST [Catalytic activity/Vol] 11 U/L Critically low 15-37 [facility] Comment on above: Performed By: #### C VDTBH #### [facility] [address] [place] [address] Dr. Sherry Quezada Bilirubin [Mass/Vol] 1.2 mg/dL Critically high 0.2-1.0 [facility] Comment on above: Performed By: #### C VDTBH #### [facility] [address] [place] [address] Dr. Sherry Quezada Calcium [Mass/Vol] 8.3 mg/dL Critically low 8.5-10.[address] [facility] Comment on above: Performed By: #### C VDTBH #### [facility] [address] [place] [address] Dr. Sherry Quezada Chloride [Moles/Vol] 109 mmol/L Critically high 98-107 [facility] Comment on above: Performed By: #### C VDTBH #### [facility] [address] [place] [address] Dr. Sherry Quezada CO2 [Moles/Vol] 26.4 mmol/L Normal 21.0-32.0 [facility] Comment on above: Performed By: #### C VDTBH #### [facility] [address] [place] [address] Dr. Sherry Quezada Creatinine [Mass/Vol] 0.81 mg/dL Normal 0.55-1.02 [facility] Comment on above: Performed By: #### C VDTBH #### [facility] [address] [place] [address] Dr. Sherry Quezada EGFR-AF RWANDAN >60 Normal >=60 [facility] Comment on above: Performed By: #### C VDTBH #### [facility] [address] [place] [address] Dr. Sherry Quezada EGFR-NON AF RWANDAN >60 Normal >=60 [facility] Comment on above: Performed By: #### C VDTBH #### [facility] [address] [place] [address] Dr. Sherry Quezada Globulin (S) [Mass/Vol] 2.7 g/dL Normal [facility] Comment on above: Performed By: #### C VDTBH #### [facility] [address] [place] [address] Dr. Sherry Quezada Glucose [Mass/Vol] 96 mg/dL Normal 74-106 [facility] Comment on above: Performed By: #### C VDTBH #### [facility] [address] [place] [address] Dr. Sherry Quezada Potassium [Moles/Vol] 4.0 mmol/L Normal 3.5-5.1 [facility] Comment on above: Performed By: #### C VDTBH #### [facility] [address] [place] [address] Dr. Sherry Quezada Protein [Mass/Vol] 5.4 g/dL Critically low 6.4-8.[address] [facility] Comment on above: Performed By: #### C VDTBH #### [facility] [address] [place] [address] Dr. Sherry Quezada Sodium [Moles/Vol] 141 mmol/L Normal 136-145 [facility] Comment on above: Performed By: #### C VDTBH #### [facility] [address] [place] [address] Dr. Sherry Quezada Urea nitrogen [Mass/Vol] 16.0 mg/dL Normal 7.0-18.0 [facility] Comment on above: Performed By: #### C VDTBH #### [facility] [address] [place] [address] Dr. Sherry Quezada Urea nitrogen/Creatinine [Mass ratio] 19.8 mg/mg Normal [facility] Comment on above: Performed By: #### C VDTBH #### [facility] [address] [place] [address] Dr. Sherry Quezada ER URINE PROFILEon 3 Bilirubin Ql (U) Negative Normal NEGATIVE [facility] Comment on above: Performed By: #### T SH #### [facility] [address] [place] [address] Dr. Sherry Quezada Clarity (U) CLEAR Normal CLEAR [facility] Comment on above: Performed By: #### T SH #### [facility] [address] [place] [address] Dr. Sherry Quezada Color (U) LT. YELLOW Normal YELLOW [facility] Comment on above: Performed By: #### T SH #### [facility] [address] [place] [address] Dr. Sherry CHAPMANLazara A micrscopic examination will be performed if indicated. Normal [facility] Comment on above: Performed By: #### T SH #### [facility] [address] [place] [address] Dr. Sherry Quezada Glucose Ql (U) Negative Normal NEGATIVE [facility] Comment on above: Performed By: #### T SH #### [facility] [address] [place] [address] Dr. Sherry Quezada Hemoglobin Ql (U) Negative Normal NEGATIVE [facility] Comment on above: Performed By: #### T SH #### [facility] [address] [place] [address] Dr. Sherry Quezada Ketones Ql (U) Negative Normal NEGATIVE [facility] Comment on above: Performed By: #### T SH #### [facility] [address] [place] [address] Dr. Sherry Quezada LEUKOCYTES Negative Normal NEGATIVE [facility] Comment on above: Performed By: #### T SH #### [facility] [address] [place] [address] Dr. Sherry Quezada Nitrite Ql (U) Negative Normal NEGATIVE [facility] Comment on above: Performed By: #### T SH #### [facility] [address] [place] [address] Dr. Sherry Quezada pH (U) 5.5 [pH] Normal 5-9 [facility] Comment on above: Performed By: #### T SH #### [facility] [address] [place] [address] Dr. Sherry Quezada SPEC GRAVITY <=1.005 Abnormal 1.005-<=1.025 [facility] Comment on above: Performed By: #### T SH #### [facility] [address] [place] [address] Dr. Sherry Quezada UA PROTEIN Negative Normal NEGATIVE/ TRACE [facility] Comment on above: Performed By: #### T SH #### [facility] [address] [place] [address] Dr. Sherry Quezada UR MICRO IND NOT INDICATED Normal [facility] Comment on above: Performed By: #### T SH #### [facility] [address] [place] [address] Dr. Sherry Quezada Urobilinogen Qn (U) 0.2 {Carlota'U}/dL Normal 0.2 - 1. 0 [facility] Comment on above: Performed By: #### T SH #### [facility] [address] [place] [address] Dr. Sherry Quezada HEMOGLOBIN AND HEMATOCRITon 10-01-2022 Hematocrit (Bld) [Volume fraction] 31.5 % Critically low 36.0-48.0 [facility] Comment on above: Performed By: #### C BC #### [facility] [address] [place] [address] Dr. Sherry Quezada Hemoglobin (Bld) [Mass/Vol] 10.1 g/dL Critically low 12.0-16.0 [facility] Comment on above: Performed By: #### C BC #### [facility] [address] [place] [address] Dr. Sherry Quezada Hematocrit (Bld) [Volume fraction] 27.0 % Critically low 36.0-48.0 [facility] Comment on above: Performed By: #### C BC #### [facility] [address] [place] [address] Dr. Sherry Quezada Hemoglobin (Bld) [Mass/Vol] 8.5 g/dL Critically low 12.0-16.0 [facility] Comment on above: Performed By: #### C BC #### [facility] [address] [place] [address] Dr. Sherry Quezada Hematocrit (Bld) [Volume fraction] 24.7 % Critically low 36.0-48.0 [facility] Comment on above: Performed By: #### C BC #### [facility] [address] [place] [address] Dr. Sherry Quezada Hemoglobin (Bld) [Mass/Vol] 7.6 g/dL Critically low 12.0-16.0 [facility] Comment on above: Performed By: #### C BC #### [facility] [address] [place] [address] Dr. Sherry Quezada MAGNESIUMon 10-01-2022 Magnesium [Mass/Vol] 1.7 mg/dL Critically low 1.8-2.4 [facility] Comment on above: Performed By: #### C VDTBH #### [facility] [address] [place] [address] Dr. Sherry Quezada PROF 14(COMP METB)on 023 Albumin [Mass/Vol] 2.6 g/dL Critically low 3.4-5.[address] [facility] Comment on above: Performed By: #### C VDTBH #### [facility] [address] [place] [address] Dr. Sherry Quezada Albumin/Globulin [Mass ratio] 1.0 {ratio} Normal [facility] Comment on above: Performed By: #### C VDTBH #### [facility] [address] [address] [address] Sherry Quezada ALP [Catalytic activity/Vol] 81 U/L Normal 46-116 [facility] Comment on above: Performed By: #### C VDTBH #### [facility] [address] [address] [address] Sherry Quezada ALT [Catalytic activity/Vol] 12 U/L Critically low 14-59 [facility] Comment on above: Performed By: #### C VDTBH #### [facility] [address] [place] [address] Dr. Sherry Quezada Anion gap [Moles/Vol] 9.3 mmol/L Normal [facility] Comment on above: Performed By: #### C VDTBH #### [facility] [address] [place] [address] Dr. Sherry Quezada AST [Catalytic activity/Vol] 14 U/L Critically low 15-37 [facility] Comment on above: Performed By: #### C VDTBH #### [facility] [address] [place] [address] Dr. Sherry Quezada Bilirubin [Mass/Vol] 1.7 mg/dL Critically high 0.2-1.0 [facility] Comment on above: Performed By: #### C VDTBH #### [facility] [address] [place] [address] Dr. Sherry Quezada Calcium [Mass/Vol] 7.8 mg/dL Critically low 8.5-10.[address] [facility] Comment on above: Performed By: #### C VDTBH #### [facility] [address] [place] [address] Dr. Sherry Quezada Chloride [Moles/Vol] 108 mmol/L Critically high 98-107 [facility] Comment on above: Performed By: #### C VDTBH #### [facility] [address] [place] [address] Dr. Sherry Quezada CO2 [Moles/Vol] 26.8 mmol/L Normal 21.0-32.0 [facility] Comment on above: Performed By: #### C VDTBH #### [facility] [address] [place] [address] Dr. Sherry Quezada Creatinine [Mass/Vol] 0.74 mg/dL Normal 0.55-1.02 [facility] Comment on above: Performed By: #### C VDTBH #### [facility] [address] [place] [address] Dr. Sherry Quezada EGFR-AF RWANDAN >60 Normal >=60 [facility] Comment on above: Performed By: #### C VDTBH #### [facility] [address] [place] [address] Dr. Sherry Quezada EGFR-NON AF RWANDAN >60 Normal >=60 [facility] Comment on above: Performed By: #### C VDTBH #### [facility] [address] [place] [address] Dr. Sherry Quezada Globulin (S) [Mass/Vol] 2.6 g/dL Normal [facility] Comment on above: Performed By: #### C VDTBH #### [facility] [address] [place] [address] Dr. Sherry Quezada Glucose [Mass/Vol] 88 mg/dL Normal 74-106 [facility] Comment on above: Performed By: #### C VDTBH #### [facility] [address] [place] [address] Dr. Sherry Quezada Potassium [Moles/Vol] 4.1 mmol/L Normal 3.5-5.1 [facility] Comment on above: Performed By: #### C VDTBH #### [facility] [address] [place] [address] Dr. Sherry Quezada Protein [Mass/Vol] 5.2 g/dL Critically low 6.4-8.[address] [facility] Comment on above: Performed By: #### C VDTBH #### [facility] [address] [place] [address] Dr. Sherry Quezada Sodium [Moles/Vol] 140 mmol/L Normal 136-145 [facility] Comment on above: Performed By: #### C VDTBH #### [facility] [address] [place] [address] Dr. Sherry Quezada Urea nitrogen [Mass/Vol] 13.0 mg/dL Normal 7.0-18.0 [facility] Comment on above: Performed By: #### C VDTBH #### [facility] [address] [place] [address] Dr. Sherry Quezada Urea nitrogen/Creatinine [Mass ratio] 17.6 mg/mg Normal [facility] Comment on above: Performed By: #### C VDTBH #### [facility] [address] [place] [address] Dr. Sherry Quezada CBC AUTO DIFFon 09-30-2022 BASO # 0.0 103/ul Normal 0.0-0.1 [facility] Comment on above: Performed By: #### C BC #### [facility] [address] [place] [address] Dr. Sherry Quezada Basophils/100 WBC (Bld) 0.5 % Normal 0.2-2.0 [facility] Comment on above: Performed By: #### C BC #### [facility] [address] [place] [address] Dr. Sherry Quezada EO # 0.0 103/ul Normal 0.0-0.7 [facility] Comment on above: Performed By: #### C BC #### [facility] [address] [place] [address] Dr. Sherry Quezada Eosinophils/100 WBC (Bld) 0.2 % Critically low 0.9-7.0 [facility] Comment on above: Performed By: #### C BC #### [facility] [address] [place] [address] Dr. Sherry Quezada Erythrocyte distribution width (RBC) [Ratio] 17.5 % Critically high 11.0-15.0 [facility] Comment on above: Performed By: #### C BC #### [facility] [address] [place] [address] Dr. Sherry Quezada Hematocrit (Bld) [Volume fraction] 21.5 % Critically low 36.0-48.0 [facility] Comment on above: Performed By: #### C BC #### [facility] [address] [place] [address] Dr. Sherry Quezada Hemoglobin (Bld) [Mass/Vol] 6.3 g/dL Critically low 12.0-16.0 [facility] Comment on above: Performed By: #### C BC #### [facility] [address] [place] [address] Dr. Sherry Quezada IG # 0.06 10e3/ul Critically high 0.00-0.03 [facility] Comment on above: Performed By: #### C BC #### [facility] [address] [place] [address] Dr. Sherry Quezada IG % 0.7 % Critically high 0.0-0.5 [facility] Comment on above: Performed By: #### C BC #### [facility] [address] [place] [address] Dr. Sherry Quezada LYMPH # 1.0 103/ul Critically low 1.2-3.8 [facility] Comment on above: Performed By: #### C BC #### [facility] [address] [place] [address] Dr. Sherry Quezada Lymphocytes/100 WBC (Bld) 11.3 % Critically low 20.5-60.0 [facility] Comment on above: Performed By: #### C BC #### [facility] [address] [place] [address] Dr. Sherry Quezada MANUAL DIFF REQ NO Normal [facility] Comment on above: Performed By: #### C BC #### [facility] [address] [place] [address] Dr. Sherry Quezada MCH (RBC) [Entitic mass] 24.6 pg Critically low 26.7-34.0 [facility] Comment on above: Performed By: #### C BC #### [facility] [address] [place] [address] Dr. Sherry Quezada MCHC (RBC) [Mass/Vol] 29.3 g/dL Critically low 29.9-35.2 [facility] Comment on above: Performed By: #### C BC #### [facility] [address] [address] [address] Sherry Quezada MCV (RBC) [Entitic vol] 84.0 fL Normal 81.0-99.0 [facility] Comment on above: Performed By: #### C BC #### [facility] [address] [address] [address] Sherry Quezada MONO # 0.5 103/ul Normal 0.3-0.8 [facility] Comment on above: Performed By: #### C BC #### [facility] [address] [place] [address] Dr. Sherry Quezada Monocytes/100 WBC (Bld) 5.4 % Normal 1.7-12.0 [facility] Comment on above: Performed By: #### C BC #### [facility] [address] [place] [address] Dr. Sherry Quezada NEUT # 7.2 103/ul Critically high 1.4-6.5 [facility] Comment on above: Performed By: #### C BC #### [facility] [address] [place] [address] Dr. Sherry Quezada Neutrophils/100 WBC (Bld) 81.9 % Critically high 43.0-75.0 [facility] Comment on above: Performed By: #### C BC #### [facility] [address] [address] [address] Sherry Quezada Platelet mean volume (Bld) [Entitic vol] 11.2 fL Normal 9.5-13.5 [facility] Comment on above: Performed By: #### C BC #### [facility] [address] [place] [address] Dr. Sherry Quezada PLT 325 103/ul Normal 150-450 [facility] Comment on above: Performed By: #### C BC #### [facility] [address] [address] [address] Sherry Quezada RBC 2.56 106/ul Critically low 4.20-5.40 [facility] Comment on above: Performed By: #### C BC #### [facility] [address] [place], [place] [address] Dr. Sherry Quezada WBC 8.8 103/ul Normal 4.0-11.0 [facility] Comment on above: Performed By: #### C BC #### [facility] [address] [place], [place] [address] ABD/PELV W CONon [...] SARAI LUCAS Date: 2022-09-30 20:50 Normal [facility] Covid-19 PCR (CVDTBH)on 09-06 SARS-CoV-2 (COVID-19) RNA MELITON+probe Ql (Unsp spec) Not detected Normal NOT DETECTED [facility] Comment on above: Result Comment: When [...] for this test is supported by the [place] of Health and Human Service's declaration that [...] used). Performed By: #### C VDTBH #### [facility] [address] [place] [address] Dr. Sherry MAYNARD AND TIBCon 09-30-2022 % SATURATION 25.8 % Normal [facility] Comment on above: Performed By: #### C BC #### [facility] [address] [place] [address] Dr. Sherry Quezada Iron [Mass/Vol] 99.0 ug/dL Normal 50.0-170.0 [facility] Comment on above: Performed By: #### C BC #### [facility] [address] [place] [address] Dr. Sherry Quezada TIBC DIRECT 384.0 ug/dL Normal 250.0-450.0 [facility] Comment on above: Performed By: #### C BC #### [facility] [address] [place] [address] Dr. Sherry Quezada OCC BLD IMMUNO SCREENon 09-06 OCCULT BLOOD Positive Abnormal NEGATIVE [facility] Comment on above: Performed By: #### C BC #### [facility] [address] [address] [address] Sherry Quezada PROF CHEM 8 (BAS METB)on Anion gap [Moles/Vol] 17.6 mmol/L Normal Th [facility] Comment on above: Performed By: #### C VDTBH #### [facility] [address] [place] [address] Dr. Sherry Quezada Calcium [Mass/Vol] 8.7 mg/dL Normal 8.5-10.1 [facility] Comment on above: Performed By: #### C VDTBH #### [facility] [address] [place] [address] Dr. Sherry Quezada Chloride [Moles/Vol] 104 mmol/L Normal 98-107 [facility] Comment on above: Performed By: #### C VDTBH #### [facility] [address] [place] [address] Dr. Sherry Quezada CO2 [Moles/Vol] 20.3 mmol/L Critically low 21.0-32.0 [facility] Comment on above: Performed By: #### C VDTBH #### [facility] [address] [place] [address] Dr. Sherry Quezada Creatinine [Mass/Vol] 0.91 mg/dL Normal 0.55-1.02 [facility] Comment on above: Performed By: #### C VDTBH #### [facility] [address] [place] [address] Dr. Sherry Quezada EGFR-AF RWANDAN >60 Normal >=60 [facility] Comment on above: Performed By: #### C VDTBH #### [facility] [address] [place] [address] Dr. Sherry Qeuzada EGFR-NON AF RWANDAN >60 Normal >=60 [facility] Comment on above: Performed By: #### C VDTBH #### [facility] [address] [place] [address] Dr. Sherry Quezada Glucose [Mass/Vol] 124 mg/dL Critically high 74-106 [facility] Comment on above: Performed By: #### C VDTBH #### [facility] [address] [address] [address] Sherry Quezada Potassium [Moles/Vol] 3.9 mmol/L Normal 3.5-5.1 [facility] Comment on above: Performed By: #### C VDTBH #### [facility] [address] [place] [address] Dr. Sherry Quezada Sodium [Moles/Vol] 138 mmol/L Normal 136-145 [facility] Comment on above: Performed By: #### C VDTBH #### [facility] [address] [place] [address] Dr. Sherry Quezada Urea nitrogen [Mass/Vol] 15.0 mg/dL Normal 7.0-18.0 [facility] Comment on above: Performed By: #### C VDTBH #### [facility] [address] [place] [address] Dr. Sherry Quezada Urea nitrogen/Creatinine [Mass ratio] 16.5 mg/mg Normal [facility] Comment on above: Performed By: #### C VDTBH #### [facility] [address] [place] [address] Dr. Sherry Quezada TYPE AND SCREENon 09-30-2022 TYPE AND SCREEN Negative Normal [facility] Comment on above: Performed By: #### T #### [facility] [address] [place] [address] Dr. Sherry Quezada CBC AUTO DIFFon 08-06-2022 BASO # 0.1 103/ul Normal 0.0-0.1 [facility] Comment on above: Performed By: #### C BC #### [facility] [address] [place] [address] Dr. Sherry Quezada Basophils/100 WBC (Bld) 1.1 % Normal 0.2-2.0 [facility] Comment on above: Performed By: #### C BC #### [facility] [address] [place] [address] Dr. Sherry Quezada EO # 0.1 103/ul Normal 0.0-0.7 [facility] Comment on above: Performed By: #### C BC #### [facility] [address] [place] [address] Dr. Sherry Quezada Eosinophils/100 WBC (Bld) 1.6 % Normal 0.9-7.0 [facility] Comment on above: Performed By: #### C BC #### [facility] [address] [place] [address] Dr. Sherry Quezada Erythrocyte distribution width (RBC) [Ratio] 14.9 % Normal 11.0-15.0 [facility] Comment on above: Performed By: #### C BC #### [facility] [address] [place] [address] Dr. Sherry Quezada Hematocrit (Bld) [Volume fraction] 35.2 % Critically low 36.0-48.0 [facility] Comment on above: Performed By: #### C BC #### [facility] [address] [place] [address] Dr. Sherry Quezada Hemoglobin (Bld) [Mass/Vol] 10.7 g/dL Critically low 12.0-16.0 [facility] Comment on above: Performed By: #### C BC #### [facility] [address] [place] [address] Dr. Sherry Quezada IG # 0.03 10e3/ul Normal 0.00-0.03 [facility] Comment on above: Performed By: #### C BC #### [facility] [address] [place] [address] Dr. Sherry Quezada IG % 0.4 % Normal 0.0-0.5 [facility] Comment on above: Performed By: #### C BC #### [facility] [address] [place] [address] Dr. Sherry Quezada LYMPH # 1.6 103/ul Normal 1.2-3.8 [facility] Comment on above: Performed By: #### C BC #### [facility] [address] [place] [address] Dr. Sherry Quezada Lymphocytes/100 WBC (Bld) 19.5 % Critically low 20.5-60.0 [facility] Comment on above: Performed By: #### C BC #### [facility] [address] [place] [address] Dr. Sherry Quezada MANUAL DIFF REQ NO Normal [facility] Comment on above: Performed By: #### C BC #### [facility] [address] [place] [address] Dr. Sherry Quezada MCH (RBC) [Entitic mass] 28.6 pg Normal 26.7-34.0 [facility] Comment on above: Performed By: #### C BC #### [facility] [address] [place], [place] [address] Dr. Sherry Quezada MCHC (RBC) [Mass/Vol] 30.4 g/dL Normal 29.9-35.2 [facility] Comment on above: Performed By: #### C BC #### [facility] [address] [place] [address] Dr. Sherry Quezada MCV (RBC) [Entitic vol] 94.1 fL Normal 81.0-99.0 [facility] Comment on above: Performed By: #### C BC #### [facility] [address] [place] [address] Dr. Sherry Quezada MONO # 0.6 103/ul Normal 0.3-0.8 [facility] Comment on above: Performed By: #### C BC #### [facility] [address] [place] [address] Dr. Sherry Quezada Monocytes/100 WBC (Bld) 6.7 % Normal 1.7-12.0 [facility] Comment on above: Performed By: #### C BC #### [facility] [address] [place] [address] Dr. Sherry Quezada NEUT # 5.9 103/ul Normal 1.4-6.5 [facility] Comment on above: Performed By: #### C BC #### [facility] [address] [place] [address] Dr. Sherry Quezada Neutrophils/100 WBC (Bld) 70.7 % Normal 43.0-75.0 [facility] Comment on above: Performed By: #### C BC #### [facility] [address] [address] [address] Sherry Quezada Platelet mean volume (Bld) [Entitic vol] 9.7 fL Normal 9.5-13.5 [facility] Comment on above: Performed By: #### C BC #### [facility] [address] [address] [address] Sherry Quezada PLT 327 103/ul Normal 150-450 [facility] Comment on above: Performed By: #### C BC #### [facility] [address] [address] [address] Sherry Quezada RBC 3.74 106/ul Critically low 4.20-5.40 [facility] Comment on above: Performed By: #### C BC #### [facility] [address] [place] [address] Dr. Sherry Quezada WBC 8.3 103/ul Normal 4.0-11.0 [facility] Comment on above: Performed By: #### C BC #### [facility] [address] [place] [address] Dr. Sherry Quezada FERRITINon 08-06-2022 Ferritin [Mass/Vol] 34.0 ng/mL Normal 8.0-252.0 [facility] Comment on above: Performed By: #### C BC #### [facility] [address] [place] [address] Dr. Sherry Quezada IRON AND TIBCon 08-06-2022 % SATURATION 5.9 % Normal [facility] Comment on above: Performed By: #### C BC #### [facility] [address] [place] [address] Dr. Sherry Quezada Iron [Mass/Vol] 20.0 ug/dL Critically low 50.0-170.0 [facility] Comment on above: Performed By: #### C BC #### [facility] [address] [place] [address] Dr. Sherry Quezada TIBC DIRECT 338.0 ug/dL Normal 250.0-450.0 [facility] Comment on above: Performed By: #### C BC #### [facility] [address] [address] [address] Sherry Quezada CBC AUTO DIFFon 06-04-2022 BASO # 0.1 103/ul Normal 0.0-0.1 [facility] Comment on above: Performed By: #### T SH #### [facility] [address] [place] [address] Dr. Sherry Quezada Basophils/100 WBC (Bld) 1.0 % Normal 0.2-2.0 [facility] Comment on above: Performed By: #### T SH #### [facility] [address] [place] [address] Dr. Sherry Quezada EO # 0.1 103/ul Normal 0.0-0.7 [facility] Comment on above: Performed By: #### T SH #### [facility] [address] [place] [address] Dr. Sherry Quezada Eosinophils/100 WBC (Bld) 2.1 % Normal 0.9-7.0 [facility] Comment on above: Performed By: #### T SH #### [facility] [address] [place] [address] Dr. Sherry Quezada Erythrocyte distribution width (RBC) [Ratio] 19.3 % Critically high 11.0-15.0 [facility] Comment on above: Performed By: #### T SH #### [facility] [address] [place] [address] Dr. Sherry Quezada Hematocrit (Bld) [Volume fraction] 38.4 % Normal 36.0-48.0 [facility] Comment on above: Performed By: #### T SH #### [facility] [address] [place] [address] Dr. Sherry Quezada Hemoglobin (Bld) [Mass/Vol] 11.7 g/dL Critically low 12.0-16.0 [facility] Comment on above: Performed By: #### T SH #### [facility] [address] [place] [address] Dr. Sherry Quezada IG # 0.03 10e3/ul Normal 0.00-0.03 [facility] Comment on above: Performed By: #### T SH #### [facility] [address] [place] [address] Dr. Sherry Quezada IG % 0.5 % Normal 0.0-0.5 [facility] Comment on above: Performed By: #### T SH #### [facility] [address] [place] [address] Dr. Sherry Quezada LYMPH # 1.2 103/ul Normal 1.2-3.8 [facility] Comment on above: Performed By: #### T SH #### [facility] [address] [place] [address] Dr. Sherry Quezada Lymphocytes/100 WBC (Bld) 21.1 % Normal 20.5-60.0 [facility] Comment on above: Performed By: #### T SH #### [facility] [address] [place] [address] Dr. Sherry Quezada MANUAL DIFF REQ NO Normal [facility] Comment on above: Performed By: #### T SH #### [facility] [address] [place] [address] Dr. Sherry Quezada MCH (RBC) [Entitic mass] 27.0 pg Normal 26.7-34.0 [facility] Comment on above: Performed By: #### T SH #### [facility] [address] [place] [address] Dr. Sherry Quezada MCHC (RBC) [Mass/Vol] 30.5 g/dL Normal 29.9-35.2 [facility] Comment on above: Performed By: #### T SH #### [facility] [address] [place] [address] Dr. Sherry Quezada MCV (RBC) [Entitic vol] 88.5 fL Normal 81.0-99.0 [facility] Comment on above: Performed By: #### T SH #### [facility] [address] [place] [address] Dr. Sherry Quezada MONO # 0.4 103/ul Normal 0.3-0.8 [facility] Comment on above: Performed By: #### T SH #### [facility] [address] [place] [address] Dr. Sherry Quezada Monocytes/100 WBC (Bld) 7.5 % Normal 1.7-12.0 [facility] Comment on above: Performed By: #### T SH #### [facility] [address] [place] [address] Dr. Sherry Quezada NEUT # 3.9 103/ul Normal 1.4-6.5 [facility] Comment on above: Performed By: #### T SH #### [facility] [address] [place] [address] Dr. Sherry Quezada Neutrophils/100 WBC (Bld) 67.8 % Normal 43.0-75.0 [facility] Comment on above: Performed By: #### T SH #### [facility] [address] [place] [address] Dr. Sherry Quezada Platelet mean volume (Bld) [Entitic vol] 10.2 fL Normal 9.5-13.5 [facility] Comment on above: Performed By: #### T SH #### [facility] [address] [place] [address] Dr. Sherry Quezada PLT 324 103/ul Normal 150-450 [facility] Comment on above: Performed By: #### T SH #### [facility] [address] [place] [address] Dr. Sherry Quezada RBC 4.34 106/ul Normal 4.20-5.40 [facility] Comment on above: Performed By: #### T SH #### [facility] [address] [place] [address] Dr. Sherry Quezada WBC 5.8 103/ul Normal 4.0-11.0 [facility] Comment on above: Performed By: #### T SH #### [facility] [address] [place] [address] Dr. Sherry Quezada FERRITINon 06-04-2022 Ferritin [Mass/Vol] 48.0 ng/mL Normal 8.0-252.0 [facility] Comment on above: Performed By: #### C BC #### [facility] [address] [place] [address] Dr. Sherry Quezada GLYCOHEMOGLOBIN A1Con 2021 ADA RECOMMENDATION SEE BELOW Normal [facility] Comment on above: Result Comment: ADA RECOMMENDED LIMIT 4.0 - 6.0 ADA THERAPEUTIC TARGET < 7.0 ACTION SUGGESTED > 7.0 Performed By: #### T SH #### [facility] [address] [address] [address] Sherry Quezada Glucose [Mass/Vol] 77 mg/dL Normal [facility] Comment on above: Performed By: #### T SH #### [facility] [address] [address] [address] Sherry Queazda HbA1c (Bld) [Mass fraction] 4.3 % Critically low 4.5-6.2 [facility] Comment on above: Performed By: #### T SH #### [facility] [address] [address] [address] Sherry Quezada IRON AND TIBCon 06-04-2022 % SATURATION 13.4 % Normal [facility] Comment on above: Performed By: #### C BC #### [facility] [address] [address] [address] Sherry Quezada Iron [Mass/Vol] 42.0 ug/dL Critically low 50.0-170.0 [facility] Comment on above: Performed By: #### C BC #### [facility] [address] [address] [address] Sherry Quezada TIBC DIRECT 314.0 ug/dL Normal 250.0-450.0 [facility] Comment on above: Performed By: #### C BC #### [facility] [address] [address] [address] Sherry Quezada PROF 14(COMP METB)on 022 Albumin [Mass/Vol] 3.4 g/dL Normal 3.4-5.0 [facility] Comment on above: Performed By: #### C VDTBH #### [facility] [address] [address] [address] Sherry Quezada Albumin/Globulin [Mass ratio] 0.9 {ratio} Normal [facility] Comment on above: Performed By: #### C VDTBH #### [facility] [address] [address] [address] Sherry Quezada ALP [Catalytic activity/Vol] 97 U/L Normal 46-116 [facility] Comment on above: Performed By: #### C VDTBH #### [facility] [address] [address] [address] Sherry Quezada ALT [Catalytic activity/Vol] 19 U/L Normal 14-59 [facility] Comment on above: Performed By: #### C VDTBH #### [facility] [address] [address] [address] Sherry Quezada Anion gap [Moles/Vol] 12.4 mmol/L Normal Th [facility] Comment on above: Performed By: #### C VDTBH #### [facility] [address] [address] [address] Sherry Quezada AST [Catalytic activity/Vol] 12 U/L Critically low 15-37 [facility] Comment on above: Performed By: #### C VDTBH #### [facility] [address] [address] [address] Sherry Quezada Bilirubin [Mass/Vol] 0.6 mg/dL Normal 0.2-1.0 [facility] Comment on above: Performed By: #### C VDTBH #### [facility] [address] [address] [address] Sherry Quezada Calcium [Mass/Vol] 8.9 mg/dL Normal 8.5-10.1 [facility] Comment on above: Performed By: #### C VDTBH #### [facility] [address] [address] [address] Sherry Quezada Chloride [Moles/Vol] 106 mmol/L Normal 98-107 [facility] Comment on above: Performed By: #### C VDTBH #### [facility] [address] [address] [address] Sherry Quezada CO2 [Moles/Vol] 24.6 mmol/L Normal 21.0-32.0 [facility] Comment on above: Performed By: #### C VDTBH #### [facility] [address] [address] [address] Sherry Quezada Creatinine [Mass/Vol] 0.88 mg/dL Normal 0.55-1.02 [facility] Comment on above: Performed By: #### C VDTBH #### [facility] [address] [address] [address] Sherry Quezada EGFR-AF RWANDAN >60 Normal >=60 The [facility] Comment on above: Performed By: #### C VDTBH #### [facility] [address] [address] [address] Sherry Quezada EGFR-NON AF RWANDAN >60 Normal >=60 [facility] Comment on above: Performed By: #### C VDTBH #### [facility] [address] [place] [address] Dr. Sherry Quezada Globulin (S) [Mass/Vol] 3.6 g/dL Normal [facility] Comment on above: Performed By: #### C VDTBH #### [facility] [address] [address] [address] Sherry Quezada Glucose [Mass/Vol] 99 mg/dL Normal 74-106 [facility] Comment on above: Performed By: #### C VDTBH #### [facility] [address] [address] [address] Sherry Quezada Potassium [Moles/Vol] 4.0 mmol/L Normal 3.5-5.1 [facility] Comment on above: Performed By: #### C VDTBH #### [facility] [address] [address] [address] Sherry Quezada Protein [Mass/Vol] 7.0 g/dL Normal 6.4-8.2 [facility] Comment on above: Performed By: #### C VDTBH #### [facility] [address] [address] [address] Sherry Quezada Sodium [Moles/Vol] 139 mmol/L Normal 136-145 [facility] Comment on above: Performed By: #### C VDTBH #### [facility] [address] [place] [address] Dr. Sherry Quezada Urea nitrogen [Mass/Vol] 13.0 mg/dL Normal 7.0-18.0 [facility] Comment on above: Performed By: #### C VDTBH #### [facility] [address] [place] [address] Dr. Sherry Quezada Urea nitrogen/Creatinine [Mass ratio] 14.8 mg/mg Normal [facility] Comment on above: Performed By: #### C VDTBH #### [facility] [address] [place] [address] Dr. Sherry Quezada T3, TOTAL (TRIIODOTHYRONINE) on 04-04-2022 T3, TOTAL 95 ng/dL Normal 71-180 [facility] Comment on above: Performed By: #### T 3TOTAL #### [facility] [address] [place] [address] Dr. Sherry Quezada CBC AUTO DIFFon 04-03-2022 BASO # 0.1 103/ul Normal 0.0-0.1 [facility] Comment on above: Performed By: #### C BC #### [facility] [address] [place] [address] Dr. Sherry Quezada Basophils/100 WBC (Bld) 1.3 % Normal 0.2-2.0 [facility] Comment on above: Performed By: #### C BC #### [facility] [address] [place] [address] Dr. Sherry Quezada EO # 0.1 103/ul Normal 0.0-0.7 [facility] Comment on above: Performed By: #### C BC #### [facility] [address] [place] [address] Dr. Sherry Quezada Eosinophils/100 WBC (Bld) 1.3 % Normal 0.9-7.0 [facility] Comment on above: Performed By: #### C BC #### [facility] [address] [place] [address] Dr. Sherry Quezada Erythrocyte distribution width (RBC) [Ratio] 19.4 % Critically high 11.0-15.0 [facility] Comment on above: Performed By: #### C BC #### [facility] [address] [place] [address] Dr. Sherry Quezada Hematocrit (Bld) [Volume fraction] 33.2 % Critically low 36.0-48.0 [facility] Comment on above: Performed By: #### C BC #### [facility] [address] [place] [address] Dr. Sherry Quezada Hemoglobin (Bld) [Mass/Vol] 9.7 g/dL Critically low 12.0-16.0 [facility] Comment on above: Performed By: #### C BC #### [facility] [address] [place] [address] Dr. Sherry Quezada IG # 0.02 10e3/ul Normal 0.00-0.03 [facility] Comment on above: Performed By: #### C BC #### [facility] [address] [place] [address] Dr. Sherry Quezada IG % 0.3 % Normal 0.0-0.5 [facility] Comment on above: Performed By: #### C BC #### [facility] [address] [place] [address] Dr. Sherry Quezada LYMPH # 0.9 103/ul Critically low 1.2-3.8 [facility] Comment on above: Performed By: #### C BC #### [facility] [address] [place] [address] Dr. Sherry Quezada Lymphocytes/100 WBC (Bld) 14.7 % Critically low 20.5-60.0 [facility] Comment on above: Performed By: #### C BC #### [facility] [address] [place] [address] Dr. Sherry Quezada MANUAL DIFF REQ NO Normal [facility] Comment on above: Performed By: #### C BC #### [facility] [address] [place] [address] Dr. Sherry Quezada MCH (RBC) [Entitic mass] 24.9 pg Critically low 26.7-34.0 [facility] Comment on above: Performed By: #### C BC #### [facility] [address] [address] [address] Sherry Quezada MCHC (RBC) [Mass/Vol] 29.2 g/dL Critically low 29.9-35.2 [facility] Comment on above: Performed By: #### C BC #### [facility] [address] [address] [address] Sherry Quezada MCV (RBC) [Entitic vol] 85.1 fL Normal 81.0-99.0 [facility] Comment on above: Performed By: #### C BC #### [facility] [address] [place] [address] Dr. Sherry Quezada MONO # 0.5 103/ul Normal 0.3-0.8 [facility] Comment on above: Performed By: #### C BC #### [facility] [address] [place] [address] Dr. Sherry Quezada Monocytes/100 WBC (Bld) 7.8 % Normal 1.7-12.0 [facility] Comment on above: Performed By: #### C BC #### [facility] [address] [place] [address] Dr. Sherry Quezada NEUT # 4.6 103/ul Normal 1.4-6.5 [facility] Comment on above: Performed By: #### C BC #### [facility] [address] [place] [address] Dr. Sherry Quezada Neutrophils/100 WBC (Bld) 74.6 % Normal 43.0-75.0 [facility] Comment on above: Performed By: #### C BC #### [facility] [address] [address] [address] Sherry Quezada Platelet mean volume (Bld) [Entitic vol] 10.1 fL Normal 9.5-13.5 [facility] Comment on above: Performed By: #### C BC #### [facility] [address] [place] [address] Dr. Sherry Quezada PLT 302 103/ul Normal 150-450 [facility] Comment on above: Performed By: #### C BC #### [facility] [address] [place] [address] Dr. Sherry Quezada RBC 3.90 106/ul Critically low 4.20-5.40 [facility] Comment on above: Performed By: #### C BC #### [facility] [address] [place] [address] Dr. Sherry Quezada WBC 6.1 103/ul Normal 4.0-11.0 [facility] Comment on above: Performed By: #### C BC #### [facility] [address] [place] [address] Dr. Sherry Quezada FERRITINon 04-03-2022 Ferritin [Mass/Vol] 11.0 ng/mL Normal 8.0-252.0 [facility] Comment on above: Performed By: #### F T4, FERR, FETIBC #### [facility] [address] [place] [address] Dr. Sherry Quezada FREE T4on 04-03-2022 Free T4 [Mass/Vol] 1.06 ng/dL Normal 0.76-1.46 [facility] Comment on above: Performed By: #### F T4, FERR, FETIBC #### [facility] [address] [place] [address] Dr. Sherry Quezada IRON AND TIBCon 04-03-2022 % SATURATION 6.0 % Normal [facility] Comment on above: Performed By: #### F T4, FERR, FETIBC #### [facility] [address] [place] [address] Dr. Sherry Quezada Iron [Mass/Vol] 21.0 ug/dL Critically low 50.0-170.0 [facility] Comment on above: Performed By: #### F T4, FERR, FETIBC #### [facility] [address] [place] [address] Dr. Sherry Quezada TIBC DIRECT 352.0 ug/dL Normal 250.0-450.0 [facility] Comment on above: Performed By: #### F T4, FERR, FETIBC #### [facility] [address] [address] [address] Sherry Quezada TSHon 04-03-2022 TSH 0.880 uIU/mL Normal 0.358-3.740 [facility] Comment on above: Performed By: #### T SH #### [facility] [address] [address] [address] Sherry Quezada MG MAMM SCREEN 3D MANJINDER CADon 02-16-2022 MG MAMM SCREEN 3D MANJINDER CAD Patient: JANINE CONDE Exam Date: 02/16/2022 : 1950 Gender:F Ordering : DR SHALOM HAYWARD D.O. Admission #: [id number] Family : Order #: [id number] CLICK HERE TO VIEW EXAM RADIOLOGY REPORT [...] Treatments None Family Cancers None LOCATION: [facility] BREAST COMPOSITION: Scattered areas fibroglandular density. [...] M.D. on 02/19/2022 at 12:46 Normal [facility] CBC AUTO DIFFon 02-13-2022 BASO # 0.1 103/ul Normal 0.0-0.1 [facility] Comment on above: Performed By: #### C BC #### [facility] [address] [address] [address] Sherry Quezada Basophils/100 WBC (Bld) 1.5 % Normal 0.2-2.0 [facility] Comment on above: Performed By: #### C BC #### [facility] [address] [place] [address] Dr. Sherry Quezada EO # 0.1 103/ul Normal 0.0-0.7 [facility] Comment on above: Performed By: #### C BC #### [facility] [address] [place] [address] Dr. Sherry Quezada Eosinophils/100 WBC (Bld) 1.0 % Normal 0.9-7.0 [facility] Comment on above: Performed By: #### C BC #### [facility] [address] [place] [address] Dr. Sherry Quezada Hematocrit (Bld) [Volume fraction] 35.3 % Critically low 36.0-48.0 [facility] Comment on above: Performed By: #### C BC #### [facility] [address] [place] [address] Dr. Sherry Quezada Hemoglobin (Bld) [Mass/Vol] 10.5 g/dL Critically low 12.0-16.0 [facility] Comment on above: Performed By: #### C BC #### [facility] [address] [place] [address] Dr. Sherry Quezada IG # 0.01 10e3/ul Normal 0.00-0.03 [facility] Comment on above: Performed By: #### C BC #### [facility] [address] [place] [address] Dr. Sherry Quezada IG % 0.2 % Normal 0.0-0.5 [facility] Comment on above: Performed By: #### C BC #### [facility] [address] [place] [address] Dr. Sherry Quezada LYMPH # 1.0 103/ul Critically low 1.2-3.8 [facility] Comment on above: Performed By: #### C BC #### [facility] [address] [place] [address] Dr. Sherry Quezada Lymphocytes/100 WBC (Bld) 16.7 % Critically low 20.5-60.0 [facility] Comment on above: Performed By: #### C BC #### [facility] [address] [place] [address] Dr. Sherry Quezada MANUAL DIFF REQ NO Normal [facility] Comment on above: Performed By: #### C BC #### [facility] [address] [place] [address] Dr. Sherry Quezada MCH (RBC) [Entitic mass] 27.8 pg Normal 26.7-34.0 [facility] Comment on above: Performed By: #### C BC #### [facility] [address] [place] [address] Dr. Sherry Quezada MCHC (RBC) [Mass/Vol] 29.7 g/dL Critically low 29.9-35.2 [facility] Comment on above: Result Comment: 1+ h ypochromasia Performed By: #### C BC #### [facility] [address] [place] [address] Dr. Sherry Quezada MCV (RBC) [Entitic vol] 93.4 fL Normal 81.0-99.0 [facility] Comment on above: Performed By: #### C BC #### [facility] [address] [place] [address] Dr. Sherry Quezada MONO # 0.4 103/ul Normal 0.3-0.8 [facility] Comment on above: Performed By: #### C BC #### [facility] [address] [place] [address] Dr. Sherry Quezada Monocytes/100 WBC (Bld) 6.7 % Normal 1.7-12.0 [facility] Comment on above: Performed By: #### C BC #### [facility] [address] [place] [address] Dr. Sherry Quezada NEUT # 4.5 103/ul Normal 1.4-6.5 [facility] Comment on above: Performed By: #### C BC #### [facility] [address] [place] [address] Dr. Sherry Quezada Neutrophils/100 WBC (Bld) 73.9 % Normal 43.0-75.0 [facility] Comment on above: Performed By: #### C BC #### [facility] [address] [place] [address] Dr. Sherry Quezada Platelet mean volume (Bld) [Entitic vol] 9.8 fL Normal 9.5-13.5 [facility] Comment on above: Performed By: #### C BC #### [facility] [address] [place] [address] Dr. Sherry Quezada PLT 305 103/ul Normal 150-450 [facility] Comment on above: Performed By: #### C BC #### [facility] [address] [place] [address] Dr. Sherry Quezada RBC 3.78 106/ul Critically low 4.20-5.40 [facility] Comment on above: Performed By: #### C BC #### [facility] [address] [place] [address] Dr. Sherry Quezada WBC 6.1 103/ul Normal 4.0-11.0 [facility] Comment on above: Performed By: #### C BC #### [facility] [address] [place] [address] Dr. Sherry Quezada FERRITINon 02-13-2022 Ferritin [Mass/Vol] 75.0 ng/mL Normal 8.0-252.0 [facility] Comment on above: Performed By: #### F ETIBC, FERR #### [facility] [address] [place] [address] Dr. Sherry Quezada IRON AND TIBCon 02-13-2022 % SATURATION 9.0 % Normal [facility] Comment on above: Performed By: #### T SH #### [facility] [address] [place] [address] Dr. Sherry Quezada Iron [Mass/Vol] 34.0 ug/dL Critically low 50.0-170.0 [facility] Comment on above: Performed By: #### T SH #### [facility] [address] [place] [address] Dr. Sherry Quezada TIBC DIRECT 376.0 ug/dL Normal 250.0-450.0 [facility] Comment on above: Performed By: #### T #### [facility] [address] [place] [address] Dr. Sherry Quezada PROF 14(COMP METB)on 022 Albumin [Mass/Vol] 3.3 g/dL Critically low 3.4-5.0 [facility] Comment on above: Performed By: #### C BC #### [facility] [address] [place] [address] Dr. Sherry Quezada Albumin/Globulin [Mass ratio] 0.9 {ratio} Normal [facility] Comment on above: Performed By: #### C BC #### [facility] [address] [place] [address] Dr. Sherry Quezada ALP [Catalytic activity/Vol] 92 U/L Normal 46-116 [facility] Comment on above: Performed By: #### C BC #### [facility] [address] [place] [address] Dr. Sherry Quezada ALT [Catalytic activity/Vol] 19 U/L Normal 14-59 [facility] Comment on above: Performed By: #### C BC #### [facility] [address] [place] [address] Dr. Sherry Quezada Anion gap [Moles/Vol] 14.2 mmol/L Normal [facility] Comment on above: Performed By: #### C BC #### [facility] [address] [place] [address] Dr. Sherry Quezada AST [Catalytic activity/Vol] 13 U/L Critically low 15-37 [facility] Comment on above: Performed By: #### C BC #### [facility] [address] [place] [address] Dr. Sherry Quezada Bilirubin [Mass/Vol] 0.6 mg/dL Normal 0.2-1.0 [facility] Comment on above: Performed By: #### C BC #### [facility] [address] [place] [address] Dr. Sherry Quezada Calcium [Mass/Vol] 8.8 mg/dL Normal 8.5-10.1 [facility] Comment on above: Performed By: #### C BC #### [facility] [address] [address] [address] Sherry Quezada Chloride [Moles/Vol] 105 mmol/L Normal 98-107 [facility] Comment on above: Performed By: #### C BC #### [facility] [address] [address] [address] Sherry Quezada CO2 [Moles/Vol] 24.5 mmol/L Normal 21.0-32.0 [facility] Comment on above: Performed By: #### C BC #### [facility] [address] [place] [address] Dr. Sherry Quezada Creatinine [Mass/Vol] 0.97 mg/dL Normal 0.55-1.02 [facility] Comment on above: Performed By: #### C BC #### [facility] [address] [place] [address] Dr. Sherry Quezada EGFR-AF RWANDAN >60 Normal >=60 [facility] Comment on above: Performed By: #### C BC #### [facility] [address] [place] [address] Dr. Sherry Quezada EGFR-NON AF RWANDAN 56 mL/min/1.73m2 Critically low >=60 [facility] Comment on above: Performed By: #### C BC #### [facility] [address] [place] [address] Dr. Sherry Quezada Globulin (S) [Mass/Vol] 3.6 g/dL Normal [facility] Comment on above: Performed By: #### C BC #### [facility] [address] [address] [address] Sherry Quezada Glucose [Mass/Vol] 110 mg/dL Critically high 74-106 [facility] Comment on above: Performed By: #### C BC #### [facility] [address] [place] [address] Dr. Sherry Quezada Potassium [Moles/Vol] 3.7 mmol/L Normal 3.5-5.1 [facility] Comment on above: Performed By: #### C BC #### [facility] [address] [place] [address] Dr. Sherry Quezada Protein [Mass/Vol] 6.9 g/dL Normal 6.4-8.2 [facility] Comment on above: Performed By: #### C BC #### [facility] [address] [place] [address] Dr. Sherry Quezada Sodium [Moles/Vol] 140 mmol/L Normal 136-145 [facility] Comment on above: Performed By: #### C BC #### [facility] [address] [place] [address] Dr. Sherry Quezada Urea nitrogen [Mass/Vol] 19.0 mg/dL Critically high 7.0-18.0 [facility] Comment on above: Performed By: #### C BC #### [facility] [address] [place] [address] Dr. Sherry Quezada Urea nitrogen/Creatinine [Mass ratio] 19.6 mg/mg Normal [facility] Comment on above: Performed By: #### C BC #### [facility] [address] [place] [address] Dr. Sherry Quezada CBC AUTO DIFFon 01-03-2022 BASO # 0.1 103/ul Normal 0.0-0.1 [facility] Comment on above: Performed By: #### C VDTBH #### [facility] [address] [place] [address] Dr. Sherry Quezada Basophils/100 WBC (Bld) 1.7 % Normal 0.2-2.0 [facility] Comment on above: Performed By: #### C VDTBH #### [facility] [address] [place] [address] Dr. Sherry Quezada EO # 0.1 103/ul Normal 0.0-0.7 [facility] Comment on above: Performed By: #### C VDTBH #### [facility] [address] [place] [address] Dr. Sherry Quezada Eosinophils/100 WBC (Bld) 2.1 % Normal 0.9-7.0 [facility] Comment on above: Performed By: #### C VDTBH #### [facility] [address] [place] [address] Dr. Sherry Quezada Erythrocyte distribution width (RBC) [Ratio] 18.9 % Critically high 11.0-15.0 [facility] Comment on above: Performed By: #### C VDTBH #### [facility] [address] [place] [address] Dr. Sherry Quezada Hematocrit (Bld) [Volume fraction] 32.7 % Critically low 36.0-48.0 [facility] Comment on above: Performed By: #### C VDTBH #### [facility] [address] [place] [address] Dr. Sherry Quezada Hemoglobin (Bld) [Mass/Vol] 9.1 g/dL Critically low 12.0-16.0 [facility] Comment on above: Performed By: #### C VDTBH #### [facility] [address] [place] [address] Dr. Sherry Quezada IG # 0.02 10e3/ul Normal 0.00-0.03 [facility] Comment on above: Performed By: #### C VDTBH #### [facility] [address] [place] [address] Dr. Sherry Quezada IG % 0.3 % Normal 0.0-0.5 [facility] Comment on above: Performed By: #### C VDTBH #### [facility] [address] [place] [address] Dr. Sherry Quezada LYMPH # 1.4 103/ul Normal 1.2-3.8 [facility] Comment on above: Performed By: #### C VDTBH #### [facility] [address] [place] [address] Dr. Sherry Quezada Lymphocytes/100 WBC (Bld) 23.8 % Normal 20.5-60.0 [facility] Comment on above: Performed By: #### C VDTBH #### [facility] [address] [place] [address] Dr. Sherry Quezada MANUAL DIFF REQ NO Normal [facility] Comment on above: Performed By: #### C VDTBH #### [facility] [address] [place] [address] Dr. Sherry Quezada MCH (RBC) [Entitic mass] 24.1 pg Critically low 26.7-34.0 [facility] Comment on above: Performed By: #### C VDTBH #### [facility] [address] [place] [address] Dr. Sherry Quezada MCHC (RBC) [Mass/Vol] 27.8 g/dL Critically low 29.9-35.2 [facility] Comment on above: Performed By: #### C VDTBH #### [facility] [address] [place] [address] Dr. Sherry Quezada MCV (RBC) [Entitic vol] 86.7 fL Normal 81.0-99.0 [facility] Comment on above: Performed By: #### C VDTBH #### [facility] [address] [place] [address] Dr. Sherry Quezada MONO # 0.5 103/ul Normal 0.3-0.8 [facility] Comment on above: Performed By: #### C VDTBH #### [facility] [address] [place] [address] Dr. Sherry Quezada Monocytes/100 WBC (Bld) 8.7 % Normal 1.7-12.0 [facility] Comment on above: Performed By: #### C VDTBH #### [facility] [address] [place] [address] Dr. Sherry Quezada NEUT # 3.6 103/ul Normal 1.4-6.5 [facility] Comment on above: Performed By: #### C VDTBH #### [facility] [address] [place] [address] Dr. Sherry Quezada Neutrophils/100 WBC (Bld) 63.4 % Normal 43.0-75.0 [facility] Comment on above: Performed By: #### C VDTBH #### [facility] [address] [place], [place] [id number] Dr. Sherry Quezada Platelet mean volume (Bld) [Entitic vol] 10.3 fL Normal 9.5-13.5 [facility] Comment on above: Performed By: #### C VDTBH #### [facility] [address] [place] [address] Dr. Sherry Quezada PLT 288 103/ul Normal 150-450 [facility] Comment on above: Performed By: #### C VDTBH #### [facility] [address] [address] [address] Sherry Quezada RBC 3.77 106/ul Critically low 4.20-5.40 [facility] Comment on above: Performed By: #### C VDTBH #### [facility] [address] [place] [address] Dr. Sherry Quezada WBC 5.8 103/ul Normal 4.0-11.0 [facility] Comment on above: Performed By: #### C VDTBH #### [facility] [address] [place] [address] Dr. Sherry Quezada FERRITINon 01-03-2022 Ferritin [Mass/Vol] 23.0 ng/mL Normal 8.0-252.0 [facility] Comment on above: Performed By: #### C BC #### [facility] [address] [place] [address] Dr. Sherry Quezada IRON AND TIBCon 01-03-2022 % SATURATION 5.0 % Normal [facility] Comment on above: Performed By: #### C BC #### [facility] [address] [place] [address] Dr. Sherry Quezada Iron [Mass/Vol] 19.0 ug/dL Critically low 50.0-170.0 [facility] Comment on above: Performed By: #### C BC #### [facility] [address] [place] [address] Dr. Sherry Quezada TIBC DIRECT 377.0 ug/dL Normal 250.0-450.0 [facility] Comment on above: Performed By: #### C BC #### [facility] [address] [place] [address] Dr. Sherry Quezada CBC AUTO DIFFon 11-22-2021 BASO # 0.1 103/ul Normal 0.0-0.1 [facility] Comment on above: Performed By: #### C VDTBH #### [facility] [address] [place] [address] Dr. Sherry Quezada Basophils/100 WBC (Bld) 1.5 % Normal 0.2-2.0 [facility] Comment on above: Performed By: #### C VDTBH #### [facility] [address] [place] [address] Dr. Sherry Quezada EO # 0.1 103/ul Normal 0.0-0.7 [facility] Comment on above: Performed By: #### C VDTBH #### [facility] [address] [place] [address] Dr. Sherry Quezada Eosinophils/100 WBC (Bld) 2.3 % Normal 0.9-7.0 [facility] Comment on above: Performed By: #### C VDTBH #### [facility] [address] [place] [address] Dr. Sherry Quezada Erythrocyte distribution width (RBC) [Ratio] 15.9 % Critically high 11.0-15.0 [facility] Comment on above: Performed By: #### C VDTBH #### [facility] [address] [place] [address] Dr. Sherry Quezada Hematocrit (Bld) [Volume fraction] 31.9 % Critically low 36.0-48.0 [facility] Comment on above: Performed By: #### C VDTBH #### [facility] [address] [place] [address] Dr. Sherry Quezada Hemoglobin (Bld) [Mass/Vol] 9.4 g/dL Critically low 12.0-16.0 [facility] Comment on above: Performed By: #### C VDTBH #### [facility] [address] [place] [address] Dr. Sherry Quezada IG # 0.03 10e3/ul Normal 0.00-0.03 [facility] Comment on above: Performed By: #### C VDTBH #### [facility] [address] [address] [address] Sherry Quezada IG % 0.6 % Critically high 0.0-0.5 [facility] Comment on above: Performed By: #### C VDTBH #### [facility] [address] [address] [address] Sherry Quezada LYMPH # 0.8 103/ul Critically low 1.2-3.8 [facility] Comment on above: Performed By: #### C VDTBH #### [facility] [address] [address] [address] Sherry Quezada Lymphocytes/100 WBC (Bld) 16.1 % Critically low 20.5-60.0 [facility] Comment on above: Performed By: #### C VDTBH #### [facility] [address] [address] [address] Sherry Quezada MANUAL DIFF REQ NO Normal [facility] Comment on above: Performed By: #### C VDTBH #### [facility] [address] [address] [address] Sherry Quezada MCH (RBC) [Entitic mass] 26.9 pg Normal 26.7-34.0 [facility] Comment on above: Performed By: #### C VDTBH #### [facility] [address] [address] [address] Sherry Quezada MCHC (RBC) [Mass/Vol] 29.5 g/dL Critically low 29.9-35.2 [facility] Comment on above: Performed By: #### C VDTBH #### [facility] [address] [address] [address] Sherry Quezada MCV (RBC) [Entitic vol] 91.4 fL Normal 81.0-99.0 [facility] Comment on above: Performed By: #### C VDTBH #### [facility] [address] [address] [address] Sherry Quezada MONO # 0.3 103/ul Normal 0.3-0.8 [facility] Comment on above: Performed By: #### C VDTBH #### [facility] [address] [place] [address] Dr. Sherry Quezada Monocytes/100 WBC (Bld) 6.5 % Normal 1.7-12.0 [facility] Comment on above: Performed By: #### C VDTBH #### [facility] [address] [place] [address] Dr. Sherry Quezada NEUT # 3.5 103/ul Normal 1.4-6.5 [facility] Comment on above: Performed By: #### C VDTBH #### [facility] [address] [place] [address] Dr. Sherry Quezada Neutrophils/100 WBC (Bld) 73.0 % Normal 43.0-75.0 [facility] Comment on above: Performed By: #### C VDTBH #### [facility] [address] [place] [address] Dr. Sherry Quezada Platelet mean volume (Bld) [Entitic vol] 10.1 fL Normal 9.5-13.5 [facility] Comment on above: Performed By: #### C VDTBH #### [facility] [address] [place] [address] Dr. Sherry Quezada PLT 283 103/ul Normal 150-450 [facility] Comment on above: Performed By: #### C VDTBH #### [facility] [address] [place] [address] Dr. Sherry Quezada RBC 3.49 106/ul Critically low 4.20-5.40 [facility] Comment on above: Performed By: #### C VDTBH #### [facility] [address] [place] [address] Dr. Sherry Quezada WBC 4.8 103/ul Normal 4.0-11.0 [facility] Comment on above: Performed By: #### C VDTBH #### [facility] [address] [place] [address] Dr. Sherry Quezada FERRITINon 11-22-2021 Ferritin [Mass/Vol] 20.0 ng/mL Normal 11.1-264.0 [facility] Comment on above: Performed By: #### C BC #### [facility] [address] [place] [address] Dr. Sherry Quezada IRON AND TIBCon 11-22-2021 % SATURATION 3.9 % Normal [facility] Comment on above: Performed By: #### C BC #### [facility] [address] [place] [address] Dr. Sherry Quezada Iron [Mass/Vol] 15.0 ug/dL Critically low 37.0-170.0 [facility] Comment on above: Performed By: #### C BC #### [facility] [address] [place] [address] Dr. Sherry Quezada TIBC DIRECT 386.0 ug/dL Normal 261.0-497.0 [facility] Comment on above: Performed By: #### C BC #### [facility] [address] [place] [address] Dr. Sherry Quezada PROF 14(COMP METB)on 022 Albumin [Mass/Vol] 3.2 g/dL Critically low 3.4-5.0 [facility] Comment on above: Performed By: #### C BC #### [facility] [address] [place] [address] Dr. Sherry Quezada Albumin/Globulin [Mass ratio] 0.9 {ratio} Normal [facility] Comment on above: Performed By: #### C BC #### [facility] [address] [place] [address] Dr. Sherry Quezada ALP [Catalytic activity/Vol] 96 U/L Normal 46-116 [facility] Comment on above: Performed By: #### C BC #### [facility] [address] [place] [address] Dr. Sherry Quezada ALT [Catalytic activity/Vol] 19 U/L Normal 14-59 [facility] Comment on above: Performed By: #### C BC #### [facility] [address] [place] [address] Dr. Sherry Quezada Anion gap [Moles/Vol] 14.4 mmol/L Normal Th [facility] Comment on above: Performed By: #### C BC #### [facility] [address] [place] [address] Dr. Sherry Quezada AST [Catalytic activity/Vol] 14 U/L Critically low 15-37 [facility] Comment on above: Performed By: #### C BC #### [facility] [address] [address] [address] Sherry Quezada Bilirubin [Mass/Vol] 0.5 mg/dL Normal 0.2-1.3 [facility] Comment on above: Performed By: #### C BC #### [facility] [address] [place] [address] Dr. Sherry Quezada Calcium [Mass/Vol] 8.4 mg/dL Critically low 8.5-10.1 [facility] Comment on above: Performed By: #### C BC #### [facility] [address] [place] [address] Dr. Sherry Quezada Chloride [Moles/Vol] 106 mmol/L Normal 98-107 [facility] Comment on above: Performed By: #### C BC #### [facility] [address] [place] [address] Dr. Sherry Quezada CO2 [Moles/Vol] 25.1 mmol/L Normal 22.0-30.0 [facility] Comment on above: Performed By: #### C BC #### [facility] [address] [place] [address] Dr. Sherry Quezada Creatinine [Mass/Vol] 0.90 mg/dL Normal 0.52-1.04 [facility] Comment on above: Performed By: #### C BC #### [facility] [address] [place] [address] Dr. Sherry Quezada EGFR-AF RWANDAN >60 Normal >=60 [facility] Comment on above: Performed By: #### C BC #### [facility] [address] [place] [address] Dr. Sherry Quezada EGFR-NON AF RWANDAN >60 Normal >=60 [facility] Comment on above: Performed By: #### C BC #### [facility] [address] [address] [address] Sherry Quezada Globulin (S) [Mass/Vol] 3.6 g/dL Normal [facility] Comment on above: Performed By: #### C BC #### [facility] [address] [address] [address] Sherry Quezada Glucose [Mass/Vol] 117 mg/dL Critically high 74-106 [facility] Comment on above: Performed By: #### C BC #### [facility] [address] [address] [address] Sherry Quezada Potassium [Moles/Vol] 4.5 mmol/L Normal 3.4-5.0 [facility] Comment on above: Performed By: #### C BC #### [facility] [address] [place] [address] Dr. Sherry Quezada Protein [Mass/Vol] 6.8 g/dL Normal 6.1-8.2 [facility] Comment on above: Performed By: #### C BC #### [facility] [address] [place] [address] Dr. Sherry Quezada Sodium [Moles/Vol] 141 mmol/L Normal 137-145 [facility] Comment on above: Performed By: #### C BC #### [facility] [address] [place] [address] Dr. Sherry Quezada Urea nitrogen [Mass/Vol] 12.0 mg/dL Normal 7.0-18.0 [facility] Comment on above: Performed By: #### C BC #### [facility] [address] [address] [address] Sherry Quezada Urea nitrogen/Creatinine [Mass ratio] 13.3 mg/mg Normal [facility] Comment on above: Performed By: #### C BC #### [facility] [address] [place] [address] Dr. Sherry Quezada Basophils Auto (Bld) [#/Vol] on 01-19-2021 Basophils (Bld) [#/Vol] 0.1 10*3/uL 0.0-0.2 [facility] Basophils/100 WBC Auto (Bld) on 01-19-2021 Basophils/100 WBC (Bld) 2.1 % . [facility] Blood anisocytosis detection on 01-19-2021 Anisocytosis Ql (Bld) Marked Fir [facility] biopsyon 01-19-2021 Transferrin [Mass/Vol] 285 mg/dL 180-380 [facility] Eosinophils Auto (Bld) [#/Vo l]on 01-19-2021 Eosinophils (Bld) [#/Vol] 0.1 10*3/uL 0.0-0.45 [facility] Eosinophils/100 WBC Auto (Bl d)on 01-19-2021 Eosinophils/100 WBC (Bld) 2.2 % . [facility] Erythrocyte distribution wid th Auto (RBC) [Ratio]on 01-19-2021 Erythrocyte distribution width (RBC) [Ratio] 21.4 % 11.9-15.3 [facility] Ferritin [Mass/volume] in Se rum or Plasmaon 01-19-2021 Ferritin [Mass/Vol] 6.2 ng/mL 11-306.8 [facility] Hematocrit Auto (Bld) [Volum e fraction]on 01-19-2021 Hematocrit (Bld) [Volume fraction] 26.2 % 34.0-46.4 [facility] Hemoglobin [Mass/volume] in Bloodon 01-19-2021 Hemoglobin (Bld) [Mass/Vol] 7.7 g/dL 11.8-15.4 [facility] Hypochromia detectionon 01-03 Hypochromia Ql (Bld) Moderate [facility] Iron [Mass/volume] in Serum or Plasmaon 01-19-2021 Iron [Mass/Vol] 13 ug/dL 40-150 [facility] Iron binding capacity [Mass/ volume] in Serum or Plasmaon 01-19-2021 Iron binding capacity [Mass/Vol] 399 ug/dL 255-450 [facility] Iron saturation [Mass Fracti on] in Serum or Plasmaon 01-19-2021 Iron saturation [Mass fraction] 3.0 % 20-50 [facility] - Hematology and Cell countson 01-19-2021 Nucleated RBC/100 WBC (Bld) [Ratio] 0.3 % 0-0.5 [facility] Leukocytes [#/volume] in Blo od by Automated counton 01-19-2021 WBC (Bld) [#/Vol] 4.1 10*3/uL 4.5-11.0 [facility] Lymphocytes Auto (Bld) [#/Vo l]on 01-19-2021 Lymphocytes (Bld) [#/Vol] 1.0 10*3/uL 1.00-4.8 [facility] Lymphocytes/100 WBC Auto (Bl d)on 01-19-2021 Lymphocytes/100 WBC (Bld) 24.0 % . [facility] [facility] MCH Auto (RBC) [Entitic mass ]on 01-19-2021 MCH (RBC) [Entitic mass] 21.9 pg 24.7-34.3 [facility] MCHC Auto (RBC) [Mass/Vol]on 01-19-2021 MCHC (RBC) [Mass/Vol] 29.5 g/dL 32.0-35.0 [facility] MCV Auto (RBC) [Entitic vol] on 01-19-2021 MCV (RBC) [Entitic vol] 74.4 fL 80-100 [facility] Monocytes Auto (Bld) [#/Vol] on 01-19-2021 Monocytes (Bld) [#/Vol] 0.4 10*3/uL 0.0-0.8 [facility] Monocytes/100 WBC Auto (Bld) on 01-19-2021 Monocytes/100 WBC (Bld) 9.1 % . [facility] Neutrophils Auto (Bld) [#/Vo l]on 01-19-2021 Neutrophils (Bld) [#/Vol] 2.5 10*3/uL 1.8-7.7 [facility] Neutrophils/100 WBC Auto (Bl d)on 01-19-2021 Neutrophils/100 WBC (Bld) 62.6 % . [facility] No Panel Informationon 01-19 Microcytosis Moderate [facility] Platelet Estimate Normal Normal [facility] Platelet Morphology Comment Normal Normal [facility] Ovalocyte detectionon 2020 Ovalocytes LM Ql (Bld) Slight [facility] Platelet mean volume Auto (B ld) [Entitic vol]on 01-19-2021 Platelet mean volume (Bld) [Entitic vol] 8.3 fL 6.3-10.7 [facility] Platelets Auto (Bld) [#/Vol] on 01-19-2021 Platelets (Bld) [#/Vol] 341 10*3/uL 150-450 [facility] Polychromasia [Presence] in Blood by Light microscopyon 01-19-2021 Polychromasia LM Ql (Bld) Slight [facility] RBC Auto (Bld) [#/Vol]on RBC (Bld) [#/Vol] 3.52 10*6/uL 3.60-5.00 [facility] RBC morphologyon 01-19-2021 RBC morphology finding Nom (Bld) N/A [facility] Teardrop cell detectionon Dacrocytes LM Ql (Bld) Slight [facility] Bilirubin Test strip Ql (U)o n 01-11-2020 Bilirubin Ql (U) Negative Negative [facility] Color Auto (U)on 01-11-2020 Color (U) Yellow Yellow [facility] Ketones Auto test strip (U) [Mass/Vol]on 01-11-2020 Ketones (U) [Mass/Vol] Negative Negative [facility] Nitrite Test strip Ql (U)on 01-11-2020 Nitrite Ql (U) Negative Negative [facility] Protein Auto test strip (U) [Mass/Vol]on 01-11-2020 Protein (U) [Mass/Vol] Negative Negative [facility] Specific gravity Auto test s trip (U) [Rel density]on 01-11-2020 Specific gravity (U) [Rel density] 1.009 1.001-1.030 [facility] Urine clarity by refractomet ry automatedon 01-11-2020 Clarity Refractometry automated (U) Clear Clear [facility] Urine glucose measurement by automated test strip (mass/volume)on 01-11-2020 Glucose Auto test strip (U) [Mass/Vol] Normal mg/dL Normal [facility] Urine hemoglobin detection b y automated test stripon 01-11-2020 Hemoglobin Auto test strip Ql (U) Negative Negative [facility] Urine leukocyte esterase det ection by automated test stripon 01-11-2020 Leukocyte esterase Auto test strip Ql (U) Negative Negative [facility] Urobilinogen Auto test strip (U) [Mass/Vol]on 01-11-2020 Urobilinogen (U) [Mass/Vol] Normal mg/dL Normal [facility] pH Auto test strip (U)on pH (U) 6.5 [pH] 5.0-9.0 [facility] Albumin [Mass/volume] in Ser um or Plasmaon 01-01-2020 Albumin [Mass/Vol] 3.2 g/dL 3.2-5.5 [facility] Creatinine and Glomerular fi ltration rate.predicted panel (S/P/Bld)on 01-01-2020 Creatinine [Mass/Vol] 0.85 mg/dL 0.44-1.03 [facility] Estimated glomerular filtrat ion rate (GFR) non- Americanon 01-01-2020 GFR/1.73 sq M.predicted among non-blacks MDRD (S/P/Bld) [Vol rate/Area] mL/min/{1.73_m2} [facility] Folate [Mass/volume] in Seru m or Plasmaon 01-01-2020 Folate [Mass/Vol] 6.7 ng/mL >4.0 [facility] Comment on above: Folate reference ran ge: >5.9 ng/mlThe WHO technical consultation on folate and vitamin [id number] has determined that folate concentrations lessthan 4 ng/ml are considered deficient. Globulin Calc (S) [Mass/Vol] on 01-01-2020 Globulin (S) [Mass/Vol] 3.3 g/dL [facility] Laboratory - Chemistry and C hemistry - challengeon 01-01-2020 Cobalamin (Vitamin B12) [Mass/Vol] 261 pg/mL 180-914 [facility] GFR/1.73 sq M.predicted MDRD (S/P/Bld) [Vol rate/Area] mL/min/{1.73_m2} [facility] Comment on above: GFR estimated refere nce range: According to KDOQI guidelines, <60 ml/min/1.73m2 is sufficient to diagnose a patient with chronic kidney disease. Laboratory - Hematology and Cell countson 01-01-2020 WBC (Bld) [#/Vol] 6.1 10*3/uL 4.5-11.0 [facility] No Panel Informationon 12-31 Pharmacy Creatinine Clearance (Chem [id number] [facility] Protein [Mass/volume] in Ser um or Plasmaon 01-01-2020 Protein [Mass/Vol] 6.5 g/dL 6.1-7.9 [facility] Serum or plasma alanine liz otransferase measurement without P-5'-P (enzymatic activion 01-01-2020 ALT No additional P-5'-P [Catalytic activity/Vol] 13 U/L 10-60 [facility] Serum or plasma albumin/glob ulin mass ratioon 01-01-2020 Albumin/Globulin [Mass ratio] 1.0 {ratio} [facility] Serum or plasma alkaline bria sphatase measurement (enzymatic activity/volume)on 01-01-2020 ALP [Catalytic activity/Vol] 93 U/L 32-92 [facility] Serum or plasma aspartate am inotransferase measurement (enzymatic activity/volume)on 01-01-2020 AST [Catalytic activity/Vol] 13 U/L 10-42 [facility] Serum or plasma calcium chris urement (mass/volume)on 01-01-2020 Calcium [Mass/Vol] 8.6 mg/dL 8.2-10.2 [facility] Serum or plasma chloride chiara surement (moles/volume)on 01-01-2020 Chloride [Moles/Vol] 107 mmol/L 95-114 [facility] Serum or plasma glucose chris urement (mass/volume)on 01-01-2020 Glucose [Mass/Vol] 108 mg/dL 70-100 [facility] Comment on above: ADA recommended refe rence rangeRandom Glucose Reference Range is dependent on time and content of last meal. Glucose of more than 200 mg/dL in a nonstressed, ambulatory subject supports the diagnosis of Diabetes Mellitus. Serum or plasma potassium me asurement (moles/volume)on 01-01-2020 Potassium [Moles/Vol] 4.4 mmol/L 3.5-5.1 [facility] Serum or plasma sodium measu rement (moles/volume)on 01-01-2020 Sodium [Moles/Vol] 137 mmol/L 136-146 [facility] Serum or plasma total biliru bin measurement (mass/volume)on 01-01-2020 Bilirubin [Mass/Vol] 0.8 mg/dL 0.3-1.2 [facility] Serum or plasma total carbon dioxide measurement (moles/volume)on 01-01-2020 CO2 [Moles/Vol] 20.8 mmol/L 22.0-30.0 [facility] Serum or plasma urea nitroge n measurement (mass/volume)on 01-01-2020 Urea nitrogen [Mass/Vol] 16 mg/dL 9- [facility] Vital Signs Date Time Vital Sign Value Performing Clinician Facility 08-14-2023 13:30-0500 Body height 168.91 cm [employer] Other [facility] [employer] Other 08-14-2023 13:30-0500 Body mass index (BMI) [Ratio] 39.2 kg/m2 Shalom Trak Other [employer] Other 08-14-2023 13:30-0500 Body weight 111.86 kg Shalom Trak Other [employer] Other 08-14-2023 13:30-0500 Diastolic blood pressure 76 mm[Hg] Shalom Trak Other [employer] Other 08-14-2023 13:30-0500 Respiratory rate 12 /min Shalom Trak Other [employer] Other 08-14-2023 13:30-0500 Systolic blood pressure 116 mm[Hg] Shalom Trak Other [employer] Other 08-13-2023 12:57-0500 Body height 167.64 cm DO Shalom Ball Work Phone: [facility] 08-13-2023 12:57-0500 Body weight 111.67 kg DO Shalom Ball Work Phone: [facility] 08-13-2023 12:57-0500 Diastolic blood pressure 77 mm[Hg] DO Shalom Ball Work Phone: [facility] 08-13-2023 12:57-0500 Heart rate 76 /min DO Shalom Ball Work Phone: [facility] 08-13-2023 12:57-0500 Respiratory rate 20 /min DO Shalom Ball Work Phone: [facility] 08-13-2023 12:57-0500 SaO2% (BldA) [Mass fraction] 99 % DO Shalom Ball Work Phone: [facility] 08-13-2023 12:57-0500 Systolic blood pressure 124 mm[Hg] DO Shalom Ball Work Phone: [facility] 08-06-2023 13:30-0500 Body height 168.91 cm Ricky Benson Other [employer] Other 08-06-2023 13:30-0500 Body mass index (BMI) [Ratio] 38.15 kg/m2 Ricky Benson Other [employer] Other 08-06-2023 13:30-0500 Body weight 108.86 kg Ricky Benson Other [employer] Other 08-06-2023 13:30-0500 Diastolic blood pressure 74 mm[Hg] Ricky Benson Other [employer] Other 08-06-2023 13:30-0500 Systolic blood pressure 137 mm[Hg] Ricky Benson Other [employer] Other 06-13-2023 13:00-0500 Body temperature 97.2 [degF] DO Shalom Ball Work Phone: [facility] 06-13-2023 13:00-0500 Body weight 111.58 kg DO Shalom Ball Work Phone: [facility] 06-13-2023 13:00-0500 Diastolic blood pressure 75 mm[Hg] DO Shalom Ball Work Phone: [facility] 06-13-2023 13:00-0500 Heart rate 88 /min DO Shalom Ball Work Phone: [facility] 06-13-2023 13:00-0500 Respiratory rate 16 /min DO Shalom Ball Work Phone: [facility] 06-13-2023 13:00-0500 SaO2% (BldA) [Mass fraction] 95 % DO Shalom Ball Work Phone: [facility] 06-13-2023 13:00-0500 Systolic blood pressure 121 mm[Hg] DO Shalom Ball Work Phone: [facility] 05-15-2023 14:32-0400 Diastolic blood pressure 60 mm[Hg] DO Shalom Ball Work Phone: [facility] 05-15-2023 14:32-0400 Heart rate 75 /min DO Shalom Ball Work Phone: [facility] 05-15-2023 14:32-0400 Respiratory rate 18 /min DO Shalom Ball Work Phone: [facility] 05-15-2023 14:32-0400 SaO2% (BldA) [Mass fraction] 97 % DO Shalom Ball Work Phone: [facility] 05-15-2023 14:32-0400 Systolic blood pressure 107 mm[Hg] DO Shalom Ball Work Phone: [facility] 05-15-2023 12:04-0400 Body height 168.91 cm DO Shalom Ball Work Phone: [facility] 05-15-2023 12:04-0400 Body temperature 98.1 [degF] DO Shalom Ball Work Phone: [facility] 05-15-2023 12:04-0400 Body weight 109.76 kg DO Shalom Ball Work Phone: [facility] 05-09-2023 13:17-0400 Body temperature 97.9 [degF] DO Shalom Ball Work Phone: [facility] 05-09-2023 13:17-0400 Diastolic blood pressure 65 mm[Hg] DO Shalom Ball Work Phone: [facility] 05-09-2023 13:17-0400 Heart rate 110 /min DO Shalom Ball Work Phone: [facility] 05-09-2023 13:17-0400 Respiratory rate 18 /min DO Shalom Ball Work Phone: [facility] 05-09-2023 13:17-0400 SaO2% (BldA) [Mass fraction] 99 % DO Shalom Ball Work Phone: [facility] 05-09-2023 13:17-0400 Systolic blood pressure 152 mm[Hg] DO Shalom Ball Work Phone: [facility] 05-07-2023 13:30-0400 Body height 168.91 cm Ricky Benson Other [employer] Other 05-07-2023 13:30-0400 Body mass index (BMI) [Ratio] 38.49 kg/m2 Ricky Benson Other [employer] Other 05-07-2023 13:30-0400 Body weight 109.82 kg Ricky Benson Other [employer] Other 05-07-2023 13:30-0400 Diastolic blood pressure 78 mm[Hg] Ricky Benson Other [facility] [employer] Other 05-07-2023 13:30-0400 Systolic blood pressure 129 mm[Hg] Ricky Benson Other [facility] [employer] Other 04-26-2023 13:02-0400 Body weight 110.67 kg DO Shalom Ball Work Phone: [facility] 03-12-2023 13:03-0400 Body temperature 97.8 [degF] DO Shalom Ball Work Phone: [facility] 03-12-2023 13:03-0400 Body weight 112.49 kg DO Shalom Ball Work Phone: [facility] 03-12-2023 13:03-0400 Diastolic blood pressure 53 mm[Hg] DO Shalom Ball Work Phone: [facility] 03-12-2023 13:03-0400 Heart rate 75 /min DO Shalom Ball Work Phone: [facility] 03-12-2023 13:03-0400 Respiratory rate 16 /min DO Shalom Ball Work Phone: [facility] 03-12-2023 13:03-0400 SaO2% (BldA) [Mass fraction] 100 % DO Shalom Ball Work Phone: [facility] 03-12-2023 13:03-0400 Systolic blood pressure 111 mm[Hg] DO Shalom Ball Work Phone: [facility] 01-08-2023 13:33-0400 Body temperature 97.8 [degF] DO Shalom Ball Work Phone: [facility] 01-08-2023 13:33-0400 Body weight 115.21 kg DO Shalom Ball Work Phone: [facility] 01-08-2023 13:33-0400 Diastolic blood pressure 64 mm[Hg] DO Shalom Ball Work Phone: [facility] 01-08-2023 13:33-0400 Heart rate 84 /min DO Shalom Ball Work Phone: [facility] 01-08-2023 13:33-0400 Respiratory rate 16 /min DO Shalom Ball Work Phone: [facility] 01-08-2023 13:33-0400 SaO2% (BldA) [Mass fraction] 98 % DO Shalom Ball Work Phone: [facility] 01-08-2023 13:33-0400 Systolic blood pressure 132 mm[Hg] DO Shalom Ball Work Phone: [facility] 11-19-2022 14:30-0400 Body height 168.91 cm Shalom Ball Other [facility] [employer] Other 11-19-2022 14:30-0400 Body mass index (BMI) [Ratio] 39.58 kg/m2 Shalom Ball Other [facility] [employer] Other 11-19-2022 14:30-0400 Body weight 112.95 kg Shalom Ball Other [employer] Other 11-19-2022 14:30-0400 Diastolic blood pressure 76 mm[Hg] Shalom Ball Other [employer] Other 11-19-2022 14:30-0400 Respiratory rate 16 /min Shalom Ball Other [employer] Other 11-19-2022 14:30-0400 Systolic blood pressure 122 mm[Hg] Shalom Ball Other [employer] Other 10-24-2022 15:45-0400 Body height 168.91 cm Shalom Ball Other [employer] Other 10-24-2022 15:45-0400 Body mass index (BMI) [Ratio] 39.77 kg/m2 Shalom Ball Other [employer] Other 10-24-2022 15:45-0400 Body weight 113.49 kg Shalom Ball Other [employer] Other 10-24-2022 15:45-0400 Diastolic blood pressure 81 mm[Hg] Shalom Ball Other [employer] Other 10-24-2022 15:45-0400 Respiratory rate 12 /min Shalom Ball Other [employer] Other 10-24-2022 15:45-0400 Systolic blood pressure 137 mm[Hg] Shalom Ball Other [employer] Other 10-10-2022 13:30-0500 Body height 168.91 cm Shalom Ball Other [employer] Other 10-10-2022 13:30-0500 Body mass index (BMI) [Ratio] 40.28 kg/m2 Shalom Ball Other [employer] Other 10-10-2022 13:30-0500 Body weight 114.94 kg Shalom Ball Other [employer] Other 10-10-2022 13:30-0500 Diastolic blood pressure 76 mm[Hg] Shalom Ball Other [employer] Other 10-10-2022 13:30-0500 Respiratory rate 12 /min Shalom Ball Other [employer] Other 10-10-2022 13:30-0500 Systolic blood pressure 122 mm[Hg] Shalom Ball Other [employer] Other 08-09-2022 13:08-0500 Body temperature 97.8 [degF] DO Shalom Ball Work Phone: [facility] 08-09-2022 13:08-0500 Body weight 113.8 kg DO Shalom Ball Work Phone: [facility] 08-09-2022 13:08-0500 Diastolic blood pressure 65 mm[Hg] DO Shalom Ball Work Phone: [facility] 08-09-2022 13:08-0500 Heart rate 101 /min DO Shalom Ball Work Phone: [facility] 08-09-2022 13:08-0500 Respiratory rate 18 /min DO Shalom Ball Work Phone: [facility] 08-09-2022 13:08-0500 SaO2% (BldA) [Mass fraction] 98 % DO Shalom Ball Work Phone: [facility] 08-09-2022 13:08-0500 Systolic blood pressure 107 mm[Hg] DO Shalom Ball Work Phone: [facility] 06-21-2022 16:30-0500 Body height 167.64 cm DO Shalom Ball Work Phone: [facility] Encounters Encounter Date Encounter Type Care Provider Facility Start: 08-27-2023 End: 08-27-2023 ambulatory Shalom Ball Other [facility] [employer] Other Start: 08-27-2023 Nursing evaluation o f patient and report Shalom Ball [facility] Start: 08-14-2023 End: 08-14-2023 ambulatory Shalom Ball Other [facility] [employer] Other Start: 08-14-2023 Office outpatient visit 25 minutes Shalom Ball [facility] Start: 08-13-2023 End: 08-13-2023 ambulatory Shalom Ball Facility:[facility] Start: 08-13-2023 End: 08-13-2023 Registered Recurring DO Shalom Ball Work Phone: [facility] Work Phone: Start: 08-06-2023 End: 08-06-2023 ambulatory Ricky Benson Other [employer] Other Start: 08-06-2023 Office outpatient visit 15 minutes Ricky Benson [facility] Start: 07-26-2023 End: 07-26-2023 ambulatory Shalom Hayward Other [employer] Other Start: 07-26-2023 Nursing evaluation o f patient and report Shalom Hayward [facility] Start: 06-13-2023 End: 06-13-2023 ambulatory DO Shalom Hayward Work Phone: [facility] Work Phone: Start: 06-13-2023 End: 06-13-2023 Registered Recurring DO Shalom Hayward Work Phone: [facility] Work Phone: Start: 05-24-2023 End: 05-24-2023 ambulatory Shalom Hayward Other [employer] Other Start: 05-24-2023 Nursing evaluation o f patient and report Shalom Hayward [facility] Start: 05-15-2023 Telephone encounter Ricky Mason [facility] Start: 05-15-2023 End: 05-15-2023 ambulatory Shalom Hayward Facility:[facility] Start: 05-15-2023 End: 05-15-2023 Admission to same day surgery center DO Shalom Ball Work Phone: [facility] Work Phone: Start: 05-15-2023 End: 05-15-2023 ambulatory DO Shaolm Hayward Work Phone: [facility] Work Phone: Start: 05-09-2023 Registered Recurring DO Minra in Ball Work Phone: [facility] Work Phone: Start: 05-07-2023 End: 05-07-2023 ambulatory Ricky Benson Other [employer] Other Start: 05-07-2023 Office outpatient visit 25 minutes Ricky Benson [facility] Start: 04-24-2023 End: 04-24-2023 ambulatory Shalom Hayward Other [employer] Other Start: 04-24-2023 Nursing evaluation o f patient and report Shalom Hayward [facility] Start: 03-12-2023 End: 03-12-2023 ambulatory DO Shalom Ball Work Phone: [facility] Work Phone: Start: 03-12-2023 End: 03-12-2023 Registered Recurring DO Shalom Mainor Work Phone: [facility] Work Phone: Start: 02-21-2023 End: 02-21-2023 ambulatory Shalom Hayward Other [employer] Other Start: 02-21-2023 Telephone encounter Shalom Hayward [facility] Start: 02-14-2023 End: 02-14-2023 ambulatory Shalom Hayward Other [employer] Other Start: 02-14-2023 Nursing evaluation o f patient and report Shalom Hayward [facility] Start: 01-08-2023 End: 01-08-2023 ambulatory DO Shalom Ball Work Phone: [facility] Work Phone: Start: 01-08-2023 End: 01-08-2023 Registered Recurring DO Shalom Mainor Work Phone: [facility] Work Phone: Start: 12-11-2022 End: 12-11-2022 ambulatory Shalom Hayward Other [employer] Other Start: 12-11-2022 Nursing evaluation o f patient and report Shalom Hayward [facility] Start: 11-19-2022 End: 11-19-2022 ambulatory Shalom Hayward Other [employer] Other Start: 11-19-2022 Office outpatient visit 15 minutes Shalom Hayward [facility] Start: 11-05-2022 End: 11-06-2022 [facility] [employer] Other Start: 11-05-2022 Nursing evaluation o f patient and report Shalom Hayward [facility] Start: 11-02-2022 End: 11-02-2022 ambulatory Shalom Hayward Other [employer] Other Start: 11-02-2022 Telephone encounter Shalom Hayward [facility] Start: 10-24-2022 End: 10-24-2022 ambulatory Shalom Hayward Other [employer] Other Start: 10-24-2022 Office outpatient visit 15 minutes Shalom Hayward [facility] Start: 10-10-2022 End: 10-10-2022 ambulatory Shalom Hayward Other [employer] Other Start: 10-10-2022 Transitional care manage srvc 14 day discharge Shalom Hayward [facility] Start: 10-02-2022 End: 10-02-2022 ambulatory Shalom Hayward Other [employer] Other Start: 10-02-2022 Nursing evaluation o f patient and report Shalom Hayward [facility] Start: 10-01-2022 End: 10-02-[address] PRASANNA CUMMINS . Facility: Start: 08-20-2022 End: 08-20-2022 ambulatory Shalom Hayward Other [employer] Other Start: 08-20-2022 Nursing evaluation o f patient and report Shalom Hayward [facility] Start: 08-09-2022 End: 08-09-2022 ambulatory DO Shalom Hayward Work Phone: [facility] Work Phone: Start: 08-09-2022 End: 08-09-2022 Registered Recurring DO Shalom Hayward Work Phone: [facility] Work Phone: Start: 08-06-2022 End: 08-07-[address] TAINA TOUSSAINT Facility:[facility] Start: 06-04-2022 End: 06-05-[address] SHALOM HAYWARD Facility:[facility] Start: 04-03-2022 End: 04-04-[address] SHALOM HAYWARD Facility:[facility] Start: 02-25-2022 Adult health examination Shalom Hayward Other [facility] [employer] Other Start: 02-16-2022 End: 02-17-[address] [...] Date Care Activity Detail Author Start: 07-01-2023 [facility] Start: 06-20-2023 End: 06-21-2023 [facility] Start: 05-15-2023 End: 05-15-2023 [facility] Start: 05-09-2023 [facility] Start: 05-02-2023 [facility] Start: 03-28-2023 [facility] Start: 03-20-2023 End: 03-21-2023 [facility] Start: 01-30-2023 [facility] Start: 01-24-2023 [facility] Start: 01-16-2023 [facility] Start: 11-22-2022 [facility] Start: 11-15-2022 [facility] Start: 08-20-2022 [facility] Start: 08-13-2022 [facility] Start: 06-21-2022 [facility] Start: 06-14-2022 [facility] Start: 05-01-2022 [facility] Start: 04-24-2022 [facility] Start: 01-23-2022 [facility] Start: 01-16-2022 [facility] Start: 12-29-2021 [facility] Start: 12-11-2021 [facility] Start: 01-30-2021 [facility] Start: 09-22-2020 [facility] Start: 07-15-2020 [facility] Basophils [#/volume] in Blood by Automated count [facility] Basophils/100 leukoc ytes in Blood by Automated count [facility] Comprehensive metabo lic 1999 panel - Serum or Plasma [facility] Comprehensive metabo lic 1999 panel - Serum or Plasma [facility] Comprehensive metabo lic 1999 panel - Serum or Plasma [facility] Comprehensive metabo lic 1999 panel - Serum or Plasma [facility] Comprehensive metabo lic 1999 panel - Serum or Plasma [facility] Comprehensive metabo lic 1999 panel - Serum or Plasma [facility] Comprehensive metabo lic 1999 panel - Serum or Plasma [facility] Comprehensive metabo lic 1999 panel - Serum or Plasma [facility] Comprehensive metabo lic 1999 panel - Serum or Plasma [facility] Comprehensive metabo lic 1999 panel - Serum or Plasma [facility] Eosinophils [#/volum e] in Blood [facility] Eosinophils/100 leuk ocytes in Blood by Automated count [facility] Erythrocyte distribu tion width [Ratio] by Automated count [facility] Erythrocytes [#/volu me] in Blood [facility] Ferritin [Mass/volum e] in Serum or Plasma [facility] Ferritin [Mass/volum e] in Serum or Plasma [facility] Ferritin [Mass/volum e] in Serum or Plasma [facility] Ferritin [Mass/volum e] in Serum or Plasma [facility] Ferritin [Mass/volum e] in Serum or Plasma [facility] Ferritin [Mass/volum e] in Serum or Plasma [facility] Ferritin [Mass/volum e] in Serum or Plasma [facility] Ferritin [Mass/volum e] in Serum or Plasma [facility] Ferritin [Mass/volum e] in Serum or Plasma [facility] Ferritin [Mass/volum e] in Serum or Plasma [facility] Hematocrit [Volume Fraction] of Blood [facility] Hemoglobin [Mass/vol ume] in Blood [facility] Leukocytes [#/volume ] corrected for nucleated erythrocytes in Blood by Automated coun [facility] Leukocytes [#/volume ] in Blood [facility] Lymphocytes [#/volum e] in Blood by Automated count [facility] Lymphocytes/100 leuk ocytes in Blood by Automated count [facility] MCH [Entitic mass] b y Automated count [facility] MCHC [Mass/volume] b y Automated count [facility] MCV [Entitic volume] by Automated count [facility] Monocytes [#/volume] in Blood by Automated count [facility] Monocytes/100 leukoc ytes in Blood by Automated count [facility] Neutrophils [#/volum e] in Blood by Automated count [facility] Neutrophils/100 leuk ocytes in Blood by Automated count [facility] Nucleated erythrocyt es [Presence] in Blood by Automated count [facility] Patient Education Gastric Ulcer (DC) Hiatal Hernia (DC) [facility] Work Phone: Platelet mean volume [Entitic volume] in Blood by Automated count [facility] Platelets [#/volume] [facility] Immunizations Immunization Date Immunization Notes Care Provider Rosy mei 05-31-2023 influenza, high dose seasonal, preservative-free Shalom Hayward Other [facility] Other 04-23-2022 influenza, high dose seasonal, preservative-free Shalom Hayward Other [facility] Other 04-21-2021 influenza virus vaccine, split virus (incl. purified surface antigen) Shalom Hayward Other [facility] Other 10-26-2020 COVID-19 mRNA-1273 (Moderna) DO Shalom Hayward Work Phone: [facility] 09-29-2020 COVID-19 mRNA-1273 (Moderna) DO Shalom Hayward Work Phone: [facility] 05-10-2020 influenza virus vaccine, split virus (incl. purified surface antigen) Shalom Hayward Other [facility] Other 05-28-2019 influenza virus vaccine, split virus (incl. purified surface antigen) Shalom Hayward Other [facility] Other 06-02-2018 influenza virus vaccine, split virus (incl. purified surface antigen) Shalom Hayward Other [facility] Other 06-06-2017 influenza virus vaccine, split virus (incl. purified surface antigen) Shalom Hayward Other [facility] Other 06-19-2016 influenza virus vaccine, split virus (incl. purified surface antigen) Shalom Mainor Other [facility] Other 06-07-2016 pneumococcal conjuga te vaccine, 13 valent Shalom Hayward Other [facility] Other 05-05-2015 influenza virus vaccine, split virus (incl. purified surface antigen) Shalom Hayward Other [facility] Other 04-27-2015 diphtheria, tetanus toxoids and acellular pertussis vaccine, unspecified formulation Shalom Hayward Other [facility] Other 02-02-2015 pneumococcal polysaccharide vaccine, 23 valent Shalom Hayward Other [facility] Other 04-16-2012 tetanus and diphther ia toxoids, adsorbed, preservative free, for adult use (5 Lf of tetanus toxoid and 2 Lf of diphtheria toxoid) Shalom Hayward Other [facility] Other 04-10-2000 diphtheria, tetanus toxoids and acellular pertussis vaccine, unspecified formulation Shalom Hayward Other [facility] Other Payers Date Payer Category Payer Self-pay [id number] 1960 Medicare [id number] 1960 Unknown [id number] 1950 Unknown [id number] .. [id number] 1950 Unknown [id number] 1949 Unknown [id number] ..[id number] [id number] 1949 Unknown [id number] .16.84 0.1.570352.3.579.2.593 1949 Unknown [id number] ..[id number] 0.1.197881.3.579.2.593 1949 Unknown [id number] 2.16.84 0.1.747250.3.579.2.593 1949 Unknown [id number] 2.16.84 0.1.992503.3.579.2.593 1949 Unknown [id number] 2.16.84 0.1.360088.3.579.2.593 1949 Unknown [id number] 2.16.84 0.1.591542.3.579.2.593 1949 Unknown [id number] 2.16.84 0.1.472752.3.579.2.593 1949 Unknown [id number] 2.16.84 0.1.050834.3.579.2.593 1949 Unknown [id number] 2.16.84 0.1.931385.3.579.2.593 Unknown [id number] 2.16.8 40.1.216330.3.579.2.531 Unknown [id number] 2.16.8 40.1.192709.3.579.2.531 Social History Date Type Detail Facility Start: 08-09-2022 End: 03-12-2023 Tobacco smoking status LAIS Ex-smoker (finding) [facility] Start: 1950 Sex Assigned At Female F [facility] Sex Assigned At Sex Assigned At Bir [facility] Other Start: 05-15-2023 End: 08-12-2023 Tobacco smoking status [facility] Never smoked tobacco (finding) [facility] Medical Equipment Procedure Code Equipment Code Equipment Origin al Text Equipment Identifier Dates Capsule endoscopy, for patency of lumen evaluation Video capsule endoscopy system [id number]-M [facility] Start: 01-07-2020 Capsule endoscopy, for patency of lumen evaluation Video capsule endoscopy system [id number] [facility] Start: 06-22-2021 Goals Date Patient Goal Desired Activity /State Clinical Notes 01-01-2020 to 08-27-2023 Note Date & Type Note Facility 08-27-2023 Evaluation note Encounter Date Diagnosis Assessment Notes Aug, Pernicious anemia (ICD-10 - D51.0) [facility] Other 01-10-2024 Evaluation note* Encounter Date Diagnosis [...] of medications Aug, Macromastia (ICD-10 - N62) [facility] Other 01-02-2024 Evaluation note* Encounter Date Diagnosis [...] results. Aug, Abdominal pain (ICD-10 - R10.9) [facility] Other 11-09-2023 Progress note Author Taina Toussaint [facility] June 13, 2023 3:08pm Note Date/Time June 13, 2023 1 :12pm [facility] [place] [address] Hem/Onc Follow Up Note - OP Signed Patient: Janine Conde MR#: [id number] : 1950 Acct:[id number] Age/Sex: 72 / F Type: REG RCR [...] Injectafer in November/January/March 2023. Followup labs at [facility] show hemoglobin 8.4 with iron saturation 6.3% [...] symptoms. She notes she was admitted at [facility] end of September for anemia and [...] 1 on 11/30/2021. Most recent laboratories from [facility] dated 08/06/2022 reveal hemoglobin - 10.7; [...] withactivities and her most recent labs at [facility] 06/04/2022 showed hemoglobin 11.7 with serum [...] that time. On review, her labs from [facility] reveal hgb 9.0 and iron saturation 5%. We will plan for repeat Feraheme x 2 doses and will follow-up in 6 weeks again for repeat labs 11/24/2021: She is here for follow-up today and transfer of followup (previouslyfollowed by Dr. Anam Abarca). She reports improved energy since most recent RBC transfusion and iron infusions at [place] but persistent fatigue. She still has episodes [...] No iron panel was reported. Labs from [place] 11/22/2021 with improved hemoglobin to 9.4 but still low iron saturation 3.9% and ferritin 20. 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 Followup with REFRIGERATION OPERATOR in 6 weeks to review iron studies after Feraheme 510mg x 2 doses and Octreotide LAR 20mg IM monthly. 10/24/2021 (YAZAN Chan) her energy is much improved after receiving Feraheme in September at [facility] she has her labs done at [facility] as well, none done this month [...] Mood [-], Anxiety [-], Stressed [-] [facility] - History Attestation statement: The following information [...] CMP 01/19/21 09:05 01/01/20 11:27 Outside Labs: [facility] outside labs 04/24/2023: Hemoglobin 8.4 iron [...] have her follow-up in 6 weeks with REFRIGERATION OPERATOR and will plan for repeatiron studies and [...] admitted for 2-3 days with anemia at [facility] and received transfusional support. Current labs [...] for coordination of care (as documented) and [id number] counseling of patient and/or family. Dictated By: Taina Toussaint MD DD/ [id number] Signed By: <Electronically signed by MD Taina Toussaint> 06/13/23 1086 [facility] Work Phone: 1(780) 994-878610-20-2023 Evaluation note* Encounter Date Diagnosis Assessment Notes Treatment Notes Treatment Clinical Notes May, Pernicious anemia (ICD-10 - D51.0) [facility] Other [facility]11[facility]* Encounter Date Diagnosis Assessment Notes Treatment Notes Treatment Clinical Notes May, Hiatal hernia (ICD-10 - K44.9) May, Chronic [place] ulcer (ICD-10 - K25.7) [facility] Other 10-03-2023 Evaluation note* Encounter Date Diagnosis Assessment Notes Treatment Notes Treatment Clinical Notes May, Iron deficiency anemia (ICD-10 - D50.9) Pt to repeat EGD- push enteroscopy Pt to start clonadine low dose 0.1mg- half a pill bid Retrieve lab results from Dr. Toussaint [facility] [employer] Other 09-23-2023 Progress note Author Taina Toussaint [facility] April 27, 2023 7:53pm Note Date/Time April 26, 2023 1:10pm [facility] [place] [address] Hem/Onc Follow Up Note - OP Signed Patient: Janine Conde MR#: [id number] : 1950 Acct:[id number] Age/Sex: 72 / F Type: REG RCR [...] Injectafer in November/January/March 2023. Followup labs at [facility] show hemoglobin 8.4 with iron saturation 6.3% [...] symptoms. She notes she was admitted at [facility] end of September for anemia and [...] 1 on 11/30/2021. Most recent laboratories from [facility] dated 08/06/2022 reveal hemoglobin - 10.7; [...] withactivities and her most recent labs at [facility] 06/04/2022 showed hemoglobin 11.7 with serum [...] that time. On review, her labs from [facility] reveal hgb 9.0 and iron saturation 5%. We will plan for repeat Feraheme x 2 doses and will follow-up in 6 weeks again for repeat labs 11/24/2021: She is here for follow-up today and transfer of followup (previouslyfollowed by Dr. Anam Abarca). She reports improved energy since most recent RBC transfusion and iron infusions at [place] but persistent fatigue. She still has episodes [...] No iron panel was reported. Labs from [place] 11/22/2021 with improved hemoglobin to 9.4 but still low iron saturation 3.9% and ferritin 20. 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 Followup with REFRIGERATION OPERATOR in 6 weeks to review iron studies after Feraheme 510mg x 2 doses and Octreotide LAR 20mg IM monthly. 10/24/2021 (YAZAN Chan) her energy is much improved after receiving Feraheme in September at [facility] she has her labs done at [facility] as well, none done this month [...] 09:05 01/01/20 11:27 Outside Labs: Labs at [facility]: 04/24/2023: WBC 5800, Hg 8.4, Hct 30.2, [...] have her follow-up in 6 weeks with REFRIGERATION OPERATOR and will plan for repeatiron studies and [...] admitted for 2-3 days with anemia at [facility] and received transfusional support. Current labs [...] She will be referred back to Dr. Bneson for re-evaluation as she continues to require [...] for coordination of care (as documented) and pkas-sa-chlo counseling of patient and/or family. Dictated By: Taina Toussaint MD DD/ 1309 Signed By: <Electronically signed by MD Taina Toussaint> 04/27/231952 [facility] Work Phone: 1(673) 710-722309-20-2023 Evaluation note* Encounter Date Diagnosis Assessment Notes Treatment Notes Treatment Clinical Notes Apr, Pernicious anemia (ICD-10 - D51.0) [facility] Other 08-08-2023 Progress note Author Shiela Chan [facility] March 12, 2023 3:30pm Note Date/Time March 12, 2023 1:3 3pm [place] [address] Hem/Onc Follow Up Note - OP Signed Patient: Janine Conde MR#: [id number] : 1950 Acct:[id number] Age/Sex: 72 / F Type: REG RCR [...] of the small bowel 04/28/2021 follow-up in [place]: o FeraHeme 510 mg IV o Repeat Iron Studies, CBC, Ferritin in 1 month o Follow-up in [address] Rivera at [facility] September 2021 follow-up labs at [facility] with again low iron saturation at 3.5%, ferritin 15 and hemoglobin 6.6. She received 2 doses of Feraheme as well as 2 unitsPRBCs at [facility] 10/24/2021: She feels much better after [...] have her follow-up in 6 weeks with REFRIGERATION OPERATOR and will plan for repeat iron studies [...] 1 on 11/30/2021. Most recent laboratories from [facility] dated 08/06/2022 reveal hemoglobin - 10.7; [...] admitted for 2-3 days with anemia at [facility] and received transfusional support. Current labs [...] symptoms. She notes she was admitted at [facility] end of September for anemia and [...] 1 on 11/30/2021. Most recent laboratories from [facility] dated 08/06/2022 reveal hemoglobin - 10.7; [...] withactivities and her most recent labs at [facility] 06/04/2022 showed hemoglobin 11.7 with serum [...] that time. On review, her labs from [facility] reveal hgb 9.0 and iron saturation 5%. We will plan for repeat Feraheme x 2 doses and will follow-up in 6 weeks again for repeat labs 11/24/2021: She is here for follow-up today and transfer of followup (previouslyfollowed by Dr. Anam Abarca). She reports improved energy since most recent RBC transfusion and iron infusions at [place] but persistent fatigue. She still has episodes [...] No iron panel was reported. Labs from [place] 11/22/2021 with improved hemoglobin to 9.4 but still low iron saturation 3.9% and ferritin 20. 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 Followup with REFRIGERATION OPERATOR in 6 weeks to review iron studies [...] improved after receiving Feraheme in September at [facility] she has her labs done at [facility] as well, none done this month [...] symptoms. She notes she was admitted at [facility] end of September for anemia and [...] for coordination of care (as documented) and vbcj-cx-hoet counseling of patient and/or family. [facility] - Medical History Medical History: Medical History [...] <Electronically signed by SONIA Chan> 03/12/23 1530 [facility] Work Phone: 1(504) 230-615407-13-2023 Evaluation note* Encounter Date Diagnosis Assessment Notes Treatment Notes Treatment Clinical Notes Feb, Pernicious anemia (ICD-10 - D51.0) [facility] Other 06-06-2023 Progress note Author Shiela Chan [facility] January 08, 2023 2:18pm Note Date/Time January 08, 2023 2:14p m [facility] [place] [id number] Hem/Onc Follow Up Note - OP Signed Patient: Janine Conde MR#: [id number] : 1950 Acct:[id number] Age/Sex: 72 / F Type: REG RCR Copies to: DO Ricky Joradn MD~ Date of Service: 01/08/2023 Time of [...] of the small bowel 04/28/2021 follow-up in [place]: o FeraHeme 510 mg IV o Repeat Iron Studies, CBC, Ferritin in 1 month o Follow-up in [address] Rivera at [facility] September 2021 follow-up labs at [facility] with again low iron saturation at 3.5%, ferritin 15 and hemoglobin 6.6. She received 2 doses of Feraheme as well as 2 units PRBCs at [facility] 10/24/2021: She feels much better after [...] have her follow-up in 6 weeks with REFRIGERATION OPERATOR and will plan for repeat iron studies [...] 1 on 11/30/2021. Most recent laboratories from [facility] dated 08/06/2022 reveal hemoglobin - 10.7; [...] admitted for 2-3 days with anemia at [facility] and received transfusional support. Current labs [...] symptoms. She notes she was admitted at [facility] end of September for anemia and [...] 1 on 11/30/2021. Most recent laboratories from [facility] dated 08/06/2022 reveal hemoglobin - 10.7; [...] withactivities and her most recent labs at [facility] 06/04/2022 showed hemoglobin 11.7 with serum [...] that time. On review, her labs from [facility] reveal hgb 9.0 and iron saturation 5%. We will plan for repeat Feraheme x 2 doses and will follow-up in 6 weeks again for repeat labs 11/24/2021: She is here for follow-up today and transfer of followup (previouslyfollowed by Dr. Anam Abarca). She reports improved energy since most recent RBC transfusion and iron infusions at [place] but persistent fatigue. She still has episodes [...] No iron panel was reported. Labs from [place] 11/22/2021 with improved hemoglobin to 9.4 but still low iron saturation 3.9% and ferritin 20. 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 Followup with REFRIGERATION OPERATOR in 6 weeks to review iron studies [...] improved after receiving Feraheme in September at [facility] she has her labs done at [facility] as well, none done this month [...] symptoms. She notes she was admitted at [facility] end of September for anemia and [...] for coordination of care (as documented) and [id number] counseling of patient and/or family. [facility] - Medical History Medical History: Medical History [...] <Electronically signed by SONIA Chan> 01/08/23 1418 [facility] Work Phone: 1([phone]) 404-742805-09-2023 Evaluation note* Encounter Date Diagnosis Assessment Notes Treatment Notes Treatment Clinical Notes December, Pernicious anemia (ICD-10 - D51.0) [facility] [employer] Other 04-17-2023 Evaluation note* Encounter Date Diagnosis [...] anxiety disorder (ICD-10 - F10.280) Continue abstinence [facility] [employer] Other 04-12-2023 Progress note Author Shiela Chan [facility] November 14, 2022 2:04pm Note Date/Time November 07, 2022 11:4 5am [facility] [place] [address] Hem/Onc Follow Up Note - OP Signed Patient: Janine Conde MR#: [id number] : 1950 Acct:[id number] Age/Sex: 72 / F Type: REG RCR [...] symptoms. She notes she was admitted at [facility] end of September for anemia and [...] 1 on 11/30/2021. Most recent laboratories from [facility] dated 08/06/2022 reveal hemoglobin - 10.7; [...] withactivities and her most recent labs at [facility] 06/04/2022 showed hemoglobin 11.7 with serum [...] that time. On review, her labs from [facility] reveal hgb 9.0 and iron saturation 5%. We will plan for repeat Feraheme x 2 doses and will follow-up in 6 weeks again for repeat labs 11/24/2021: She is here for follow-up today and transfer of followup (previouslyfollowed by Dr. Anam Abarca). She reports improved energy since most recent RBC transfusion and iron infusions at [place] but persistent fatigue. She still has episodes [...] No iron panel was reported. Labs from [place] 11/22/2021 with improved hemoglobin to 9.4 but still low iron saturation 3.9% and ferritin 20. 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 Followup with REFRIGERATION OPERATOR in 6 weeks to review iron studies [...] improved after receiving Feraheme in September at [facility] she has her labs done at [facility] as well, none done this month [...] of the small bowel 04/28/2021 follow-up in [place]: o FeraHeme 510 mg IV o Repeat Iron Studies, CBC, Ferritin in 1 month o Follow-up in [address] Rivera at [facility] September 2021 follow-up labs at [facility] with again low iron saturation at 3.5%, ferritin 15 and hemoglobin 6.6. She received 2 doses of Feraheme as well as 2 units PRBCs at [facility] 10/24/2021: She feels much better after [...] have her follow-up in 6 weeks with REFRIGERATION OPERATOR and will plan for repeat iron studies [...] 1 on 11/30/2021. Most recent laboratories from [facility] dated 08/06/2022 reveal hemoglobin - 10.7; [...] admitted for 2-3 days with anemia at [facility] and received transfusional support. Current labs [...] for coordination of care (as documented) and jufa-gz-[id number] counseling of patient and/or family. Dictated By: Shiela Chan APRN DD/ 1144 Signed By: <Electronically signed by SONIA Chan> 11/14/22 1404 [facility] Work Phone: 1(170) 661-115404-03-2023 Evaluation note* Encounter Date Diagnosis Assessment Notes Treatment Notes Treatment Clinical Notes Nov, Pernicious anemia (ICD-10 - D51.0) [facility] [employer] Other 03-22-2023 Evaluation note* Encounter Date Diagnosis [...] d exercise and weight loss A1C yearly [facility] [employer] Other 03-08-2023 Evaluation note* Encounter Date Diagnosis [...] risk of cirrhosis, gastritis, bleeding tendancies etc [facility] Other 02-28-2023 Evaluation note* Encounter Date Diagnosis Assessment Notes Treatment Notes Treatment Clinical Notes Sep, Pernicious anemia (ICD-10 - D51.0) [facility] Other 01-05-2023 Progress note Author Gertrudis Louis [facility] August 09, 2022 2:19pm Note Date/Time August 09, 2022 2: 03pm [facility] [place] [address] Hem/Onc Follow Up Note - OP Signed Patient: Janine Conde MR#: [id number] : 1950 Acct:[id number] Age/Sex: 71 / F Type: REG RCR [...] 1 on 11/30/2021. [facility] [facility]22 reveal hemoglobin - 10.7; [...] withactivities and her most recent labs at [facility] 06/04/2022 showed hemoglobin 11.7 with serum [...] that time. On review, her labs from [facility] reveal hgb 9.0 and iron saturation 5%. We will plan for repeat Feraheme x 2 doses and will follow-up in 6 weeks again for repeat labs 11/24/2021: She is here for follow-up today and transfer of followup (previouslyfollowed by Dr. Anam Abarca). She reports improved energy since most recent RBC transfusion and iron infusions at [place] but persistent fatigue. She still has episodes [...] No iron panel was reported. Labs from [place] 11/22/2021 with improved hemoglobin to 9.4 but still low iron saturation 3.9% and ferritin 20. 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 Followup with REFRIGERATION OPERATOR in 6 weeks to review iron studies [...] improved after receiving Feraheme in September at [facility] she has her labs done at [facility] as well, none done this month [...] Mood [-], Anxiety [-], Stressed [-] [facility] - Medical History Medical History: Medical History [...] of the small bowel 04/28/2021 follow-up in [place]: o FeraHeme 510 mg IV o Repeat Iron Studies, CBC, Ferritin in 1 month o Follow-up in [address] Rivera at [facility] September 2021 follow-up labs at [facility] with again low iron saturation at 3.5%, ferritin 15 and hemoglobin 6.6. She received 2 doses of Feraheme as well as 2 units PRBCs at [facility] 10/24/2021: She feels much better after [...] have her follow-up in 6 weeks with REFRIGERATION OPERATOR and will plan for repeat iron studies [...] 1 on 11/30/2021. Most recent laboratories from [facility] dated 08/06/2022 reveal hemoglobin - 10.7; [...] for coordination of care (as documented) and hmff-fb-gahl counseling of patient and/or family. Dictated By: Gertrudis Louis APRN DD/ 1350 Signed By: <Electronically signed by SONIA Louis> 08/09/22 1415 [facility] Work Phone: 1([phone] 243-811511-02-2022 Progress note Author Taina Toussaint [facility] June 06, 2022 10:30am Note Date/Time June 06, 2022 1 0:03am [facility] [place] [address] Hem/Onc Follow Up Note - OP Signed Patient: Janine Conde MR#: [id number] : 1950 Acct:[id number] Age/Sex: 71 / F Type: REG RCR [...] activities and her most recent labs at [facility] 06/04/2022 showed hemoglobin 11.7 with serum [...] that time. On review, her labs from [facility] reveal hgb 9.0 and iron saturation 5%. We will plan for repeat Feraheme x 2 doses and will follow-up in 6 weeks again for repeat labs 11/24/2021: She is here for follow-up today and transfer of followup (previouslyfollowed by Dr. Anam Abarca). She reports improved energy since most recent RBC transfusion and iron infusions at [place] but persistent fatigue. She still has episodes [...] No iron panel was reported. Labs from [place] 11/22/2021 with improved hemoglobin to 9.4 but still low iron saturation 3.9% and ferritin 20. 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 Followup with REFRIGERATION OPERATOR in 6 weeks to review iron studies [...] improved after receiving Feraheme in September at [facility] she has her labs done at [facility] as well, none done this month [...] 01/01/20 11:27 Outside Labs: 06/04/2022 labs at [facility]: White blood cells 5800, hemoglobin 11.7, [...] of the small bowel 04/28/2021 follow-up in [place]: o FeraHeme 510 mg IV o Repeat Iron Studies, CBC, Ferritin in 1 month o Follow-up in [address] Rivera at [facility] September 2021 follow-up labs at [facility] with again low iron saturation at 3.5%, ferritin 15 and hemoglobin 6.6. She received 2 doses of Feraheme as well as 2 units PRBCs at [facility] 10/24/2021: She feels much better after [...] have her follow-up in 6 weeks with REFRIGERATION OPERATOR and will plan for repeat iron studies [...] for coordination of care (as documented) and fwaq-cw-wtbc counseling of patient and/or family. Dictated By: Taina Toussaint MD DD/ 1002 Signed By: <Electronically signed by MD Taina Toussaint> 06/06/22 1030 [facility] Work Phone: 1([phone]) 150-175707-14-2022 Progress note Author Gertrudis Louis [facility] February 15, 2022 2:17pm Note Date/Time February 15, 2022 2:10 pm [facility] at [address] [address] Hem/Onc Follow Up Note - OP Signed Patient: Janine Conde MR#: [id number] : 1950 Acct:[id number] Age/Sex: 71 / F Type: REG RCR [...] that time. On review, her labs from [facility] reveal hgb 9.0 and iron saturation 5%. We will plan for repeat Feraheme x 2 doses and will follow-up in 6 weeks again for repeat labs 11/24/2021: She is here for follow-up today and transfer of followup (previouslyfollowed by Dr. Anam Abarca). She reports improved energy since most recent RBC transfusion and iron infusions at [place] but persistent fatigue. She still has episodes [...] No iron panel was reported. Labs from [place] 11/22/2021 with improved hemoglobin to 9.4 but still low iron saturation 3.9% and ferritin 20. 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 Followup with REFRIGERATION OPERATOR in 6 weeks to review iron studies [...] improved after receiving Feraheme in September at [facility] she has her labs done at [facility] as well, none done this month [...] of the small bowel 04/28/2021 follow-up in [place]: o FeraHeme 510 mg IV o Repeat Iron Studies, CBC, Ferritin in 1 month o Follow-up in [address] Rivera at [facility] September 2021 follow-up labs at [facility] with again low iron saturation at 3.5%, ferritin 15 and hemoglobin 6.6. She received 2 doses of Feraheme as well as 2 units PRBCs at [facility] 10/24/2021: She feels much better after [...] have her follow-up in 6 weeks with REFRIGERATION OPERATOR and will plan for repeat iron studies [...] for coordination of care (as documented) and lnvd-bi-mdex counseling of patient and/or family. Dictated By: Gertrudis Louis APRN DD/ 1408 Signed By: <Electronically signed by SONIA Louis> 02/15/22 0616 [facility] Work Phone: 1([phone]) 396-379706-03-2022 Progress note Author Shiela Chan [facility] January 05, 2022 12:28pm Note Date/Time January 05, 2022 11:52 am [facility] at [address] [address] Hem/Onc Follow Up Note - OP Signed Patient: Janine Conde MR#: [id number] : 1950 Acct:[id number] Age/Sex: 71 / F Type: REG RCR [...] that time. On review, her labs from [facility] reveal hgb 9.0 and iron saturation 5%. We will plan for repeat Feraheme x 2 doses and will follow-up in 6 weeks again for repeat labs 11/24/2021: She is here for follow-up today and transfer of followup (previouslyfollowed by Dr. Anam Abarca). She reports improved energy since most recent RBC transfusion and iron infusions at [place] but persistent fatigue. She still has episodes [...] No iron panel was reported. Labs from [place] 11/22/2021 with improved hemoglobin to 9.4 but still low iron saturation 3.9% and ferritin 20. 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 Followup with REFRIGERATION OPERATOR in 6 weeks to review iron studies [...] improved after receiving Feraheme in September at [facility] she has her labs done at [facility] as well, none done this month [...] of the small bowel 04/28/2021 follow-up in [place]: o FeraHeme 510 mg IV o Repeat Iron Studies, CBC, Ferritin in 1 month o Follow-up in [address] Rivera at [facility] September 2021 follow-up labs at [facility] with again low iron saturation at 3.5%, ferritin 15 and hemoglobin 6.6. She received 2 doses of Feraheme as well as 2 units PRBCs at [facility] 10/24/2021: She feels much better after [...] have her follow-up in 6 weeks with REFRIGERATION OPERATOR and will plan for repeat iron studies [...] for coordination of care (as documented) and pazl-hh-jiyv counseling of patient and/or family. Dictated By: Shiela Chan APRN DD/ 1151 Signed By: <Electronically signed by SONIA Chan> 01/05/22 1228 [facility] Work Phone: [phone] Progress note Author Taina Toussaint [facility] November 25, 2021 2:17pm Note Date/Time November 24, 2021 11: 39am [facility] at [place] [id number] Hem/Onc Follow Up Note - OP Signed Patient: Janine Conde MR#: [id number] : 1950 Acct:[id number] Age/Sex: 71 / F Type: REG RCR [...] recent RBC transfusion and iron infusions at [place] but persistent fatigue. She still has episodes [...] No iron panel was reported. Labs from [place] 11/22/2021 with improved hemoglobin to 9.4 but still low iron saturation 3.9% and ferritin 20. 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 Followup with REFRIGERATION OPERATOR in 6 weeks to review iron studies [...] improved after receiving Feraheme in September at [facility] she has her labs done at [facility] as well, none done this month [...] Mood [-], Anxiety [-], Stressed [-] [facility] - History Attestation statement: The following information [...] CMP 01/19/21 09:05 01/01/20 11:27 Outside Labs: [facility] labs: 11/22/2021: WBC 4800, Hg 9.4, Hct [...] of the small bowel 04/28/2021 follow-up in [place]: o FeraHeme 510 mg IV o Repeat Iron Studies, CBC, Ferritin in 1 month o Follow-up in [address] Rivera at [facility] September 2021 follow-up labs at [facility] with again low iron saturation at 3.5%, ferritin 15 and hemoglobin 6.6. She received 2 doses of Feraheme as well as 2 units PRBCs at [facility] 10/24/2021: She feels much better after [...] have her follow-up in 6 weeks with REFRIGERATION OPERATOR and will plan for repeat iron studies [...] for coordination of care (as documented) and nniz-ly-gkmw counseling of patient and/or family. Dictated By: Taina Toussaint MD DD/ 1138 Signed By: <Electronically signed by MD Taina Toussaint> 11/25/21 1410 [facility] Work Phone: 1([phone]) 275-190003-22-2022 Progress note Author Shiela Chan [facility] October 24, 2021 2:26pm Note Date/Time October 24, 2021 2:0 8pm [facility] [place] [address] Hem/Onc Follow Up Note - OP Signed Patient: Janine Conde MR#: [id number] : 1950 Acct:[id number] Age/Sex: 70 / F Type: REG RCR [...] improved after receiving feraheme in September at [facility] she has her labs done at [facility] as well, none done this month [...] no additional complaints except as documented [facility] - Medical History Medical History: Medical History [...] of the small bowel 04/28/2021 follow-up in [place]: o FeraHeme 510 mg IV o Repeat Iron Studies, CBC, Ferritin in 1 month o Follow-up in [address] rivera at [facility] September 2021 follow-up labs at [facility] with again low iron saturation at 3.5%, ferritin 15 and hemoglobin 6.6. She received 2 doses of Feraheme as well as 2 units PRBCs at [facility] 10/24/2021: She feels much better after [...] for coordination of care (as documented) and njqr-mp-xalb counseling of patient and/or family. Dictated By: Shiela Chan APRN DD/ 1408 Signed By: <Electronically signed by SONIA Chan> 10/24/21 1426 [facility] Work Phone: 1([phone]) 956-477310-02-2021 Progress note Author Francesco Solano [facility] May 05, 2021 11:24pm Note Date/Time April 28, 2021 12:03pm [facility] [place] [address] Hem/Onc Follow Up Note - OP Signed Patient: Janine Conde MR#: [id number] : 1950 Acct:[id number] Age/Sex: 70 / F Type: REG RCR [...] she consider repeat EGD/COLONOSCOPY. to follow-up in [place]: o FeraHeme 510 mg IV o Repeat Iron Studies, CBC, Ferritin in 1 month o Follow-up in [address] rivera at [facility] (2) B12 deficiency Plan: She is getting B12 injection monthly with PCP. (3) Hiatal hernia (4) Obesity, morbid, BMI 40.0-49.9 Follow Up Instructions: cbc, iron studies, ferritin in [place] 1mo iv iron in [place] follow up in [place] in 1 month IVamshi DO have seen [...] for coordination of care (as documented) and lnwe-tf-rjxf counseling of patient and/or family. [facility] - Medical History Medical History: Medical History [...] by Francesco Solano II, DO> 05/05/21 2324 [facility] Work Phone: 1(161) 712-917006-17-2021 Progress note Author Nghia Lizarraga [facility] January 19, 2021 10:59am Note Date/Time January 19, 2021 10:4 6am [facility] [place] [address] Hem/Onc Follow Up Note - OP Signed Patient: Janine Conde MR#: [id number] : 1950 Acct:[id number] Age/Sex: 70 / F Type: REG RCR [...] Mood [-], Anxiety [-], Stressed [-] [facility] - Medical History Medical History: Medical History [...] % (Auto) 24.0 % (.) 01/19/21 09:05 [place] % (Auto) 9.1 % (.) 01/19/21 09:05 Eos % (Auto) 2.2 % (.) 01/19/21 09:05 Baso % (Auto) 2.1 % (.) 01/19/21 09:05 Neut # (Auto) 2.5 x10E3/uL (1.8-7.7) 01/19/21 09:05 Lymph # (Auto) 1.0 x10E3/uL (1.00-4.8) 01/19/21 09:05 [place] # (Auto) 0.4 x10E3/uL (0.0-0.8) 01/19/21 09:05 [...] Ovalocytes Slight 01/19/21 09:05 PHA Creatinine Clear 81.6794100240 01/01/20 11:27 Sodium 137 mmol/L (136-146) 01/01/20 [...] pH 6.5 (5.0-9.0) 01/11/20 15:16 Ur Specific [place] 1.009 (1.001-1.030) 01/11/20 15:16 Urine Protein Negative [...] for coordination of care (as documented) and qhyg-xt-jkvo counseling of patient and/or family. Dictated By: Nghia Lizarraga MD DD/ 1045 Signed By: <Electronically signed by Nghia Lizarrgaa MD> 01/19/21 1051 [facility] Work Phone: 1([phone] 498-225004-20-2021 Progress note Author Anam Abarca [facility] November 22, 2020 2:25pm Note Date/Time November 22, 2020 2:2 4pm [facility] at [address] [address] Hem/Onc Follow Up Note - OP Signed Patient: Janine Conde MR#: [id number] : 1950 Acct:[id number] Age/Sex: 70 / F Type: REG RCR [...] No back pain, or joint pain. [facility] - Medical History Medical History: Medical History [...] for coordination of care (as documented) and acqw-ki-bmvy counseling of patient and/or family. Dictated By: Anam Abarca MD DD/ 142 Signed By: <Electronically signed by Anam Abarca MD> 11/22/20 1425 [facility] Work Phone: 1([phone]) 579-913602-04-2021 Progress note Author Anam Abarca [facility] September 08, 2020 1:41pm Note Date/Time September 08, 2020 1 :41pm [facility] [place] [address] Hem/Onc Follow Up Note - OP Signed Patient: Janine Conde MR#: [id number] : 1950 Acct:[id number] Age/Sex: 69 / F Type: REG RCR [...] No back pain, or joint pain. [facility] - Medical History Medical History: Medical History [...] for coordination of care (as documented) and agvy-hh-knpv counseling of patient and/or family. Dictated By: Anam Abarca MD DD/ 1339 Signed By: <Electronically signed by Anam Abarca MD> 09/08/20 1341 [facility] Work Phone: [phone] Progress note Author Anam Abarca [facility] July 08, 2020 12:39pm Note Date/Time July 08, 2020 1 1:53am [facility] [place] [address] Hem/Onc Follow Up Note - OP Signed with Addenda Patient: Janine Conde MR#: [id number] : 1950 Acct:[id number] Age/Sex: 69 / F Type: REG RCR [...] No back pain, or joint pain. [facility] - Medical History Medical History: Medical History [...] was for coordination of care(as documented) and mifv-hd-wcng counseling of patient and/or family. Dictated By: Anam Abarca MD DD/ 1152 Signed By: <Electronically signed by Anam Abarca MD> 07/08/20 1156 [facility] Work Phone: 1([phone]) 688-919711-06-2020 Progress note Author Anam Abarca [facility] June 10, 2020 1:38pm Note Date/Time June 10, 2020 1 :29pm [facility] at [address] [address] Hem/Onc Follow Up Note - OP Signed Patient: Janine Conde MR#: [id number] : 1950 Acct:[id number] Age/Sex: 69 / F Type: REG RCR Copies to: DO Ricky Jordan MD~ Subjective Date/Time of Service: Date of Service: 06/10/2020 Time of Service: 13:25 Chief Complaint: Follow up after inpt stay HPI: Mrs. Conde returns for an earlier follow-up. She feels well. She presented to [facility] on 06/07/2020 for profound fatigue, found [...] No back pain, or joint pain. [facility] - Medical History Medical History: Medical History [...] was for coordination of care(as documented) and vzbj-ap-skba counseling of patient and/or family. Dictated By: Anam Abarca MD DD/ 1325 Signed By: <Electronically signed by Anam Abarca MD> 06/10/20 1338 [facility] Work Phone: [phone]) [phone] Progress note Author Anam Abarca [facility] April 07, 2020 1:21pm Note Date/Time April 07, 2020 1:17pm [facility] [place] [address] Hem/Onc Follow Up Note - OP Signed Patient: Janine Conde MR#: [id number] : 1950 Acct:[id number] Age/Sex: 69 / F Type: REG RCR [...] No back pain, or joint pain. [facility] - Medical History Medical History: Medical History [...] was for coordination of care(as documented) and jkme-br-zvoh counseling of patient and/or family. Dictated By: Anam Abacra MD DD/ 1316 Signed By: <Electronically signed by Anam Abarca MD> 04/07/20 1321 [facility] Work Phone: [phone] Progress note Author Anam Abarca [facility] February 11, 2020 2:44pm Note Date/Time February 11, 2020 1:59p m [facility] [place] [address] Hem/Onc Follow Up Note - OP Signed Patient: Janine Conde MR#: M [id number] : 1950 Acct:[id number] Age/Sex: 69 / F Type: REG RCR [...] No back pain, or joint pain. [facility] - Medical History Medical History: Medical History (Last Reviewed 01/07/20 @ 06:31 by Samina Pulido RN) Anxiety Depression GERD (gastroesophageal reflux disease) H/O: hysterectomy - Surgical History Surgical History: Surgical History (Last Reviewed 01/07/20 @ 06:31 by aSmina Pulido RN) Hx of cholecystectomy - Family [...] for coordination of care (as documented) and regv-mw-rcyh counseling of patient and/or family. Dictated By: Anam Abarca MD DD/ [id number] Signed By: <Electronically signed by Anam Abarca MD> 02/11/20 1444 [facility] Work Phone: [phone] Consult note Author Anam Abarca [facility] January 01, 2020 12:16pm Note Date/Time January 01, 2020 12:04 pm [facility] [place] [id number] Hem/Onc Consult Note - OP Signed Patient: Janine Conde MR#: [id number] : 1950 Acct:[id number] Age/Sex: 69 / F Type: REG RCR [...] anemia in 2019. She was hospitalized at [facility] last June, EGD revealed 2 small duodenal ulcers, colonoscopy was normal. She received PRBC transfusions, as well as IV iron with Ferric gluconate. During the same hospital stay she was found to have a subsegmental PE, placed onanticoagulation for 3 months. Her CBC on 12/10/2019 revealed hemoglobin 7.2, she received 2 units of PRBC transfusion at [facility]. She is currently taking oral iron [...] 7 Days 01/01/20 11:27: PHA Creatinine Clear [id number], Sodium 137, Potassium 4.4, Chloride 107, Carbon [...] she is open to it. I did certified alcohol counselor her the risks of anaphylactic reaction, [...] minutes, including greater than 50%of time for nxtq-my-lspk counseling and care coordination. - Time with Patient Coordination of Care & Counseling Time: Greater than 50% of time spent with patient was for coordination of care (as documented) and ukfl-au-ytyf counseling of patient and/or family. Dictated By: Anam Abarca MD DD/ 1204 Signed By: <Electronically signed by Anam Abarca MD> 01/01/20 1216 [facility] Work Phone: Evaluation note* Diagnosis Onset Date Resolution Status Skin lesion acute Angiodysplasia of small intestine chronic B12 deficiency chronic Hiatal hernia chronic Iron deficiency anemia chron ic Obesity, morbid, BMI 40.0-49.9 chronic [facility] Work Phone: Evaluation noteNo [employer] Other Evaluation note* Diagnosis Onset Date Resolution Status Skin lesion acute Angiodysplasia of small intestine chronic B12 deficiency chronic Chronic [place] ulcer chroni c Hiatal hernia chronic Iron deficiency anemia chron ic Obesity, morbid, BMI 40.0-49.9 chronic [facility] Work Phone: [employer] general Narrative - Reported* Type Description Date Medical History high cholesterol Medical History anxiety Medical History sleep disorder/insomnia Surgical History bunionectomy left foot Surgical History total hysterectomy Surgical History cholecystectomy Surgical History T&A Surgical History Oral Surgery Hospitalization History GI bleeding 06/2019 [facility] Narrative - Reported* Type Description Date [...] History EGD Hospitalization History GI bleeding 06/2019 [facility] Other [facility] Narrative - [facility] Other [facility] Narrative - Reported* Type Description Date [...] enteroscopy 05/2023 Hospitalization History GI bleeding 06/2019 [facility] Other Hospital Discharge instructions Additional Instructions DISCHARGE [...] NOT operate machinery such as power tools, [employer] mowers, snow blowers, sewing machines, etc. -Avoid [...] if you have any problems. -Office number [phone] Work Phone: Progress note Author Gertrudis Louis [facility] August 09, 2022 2:19pm Note Date/Time August 09, 2022 2: 03pm [facility] at [address] [address] Hem/Onc Follow Up Note - OP Signed Patient: Janine Conde MR#: [id number] : 1950 Acct:[id number] Age/Sex: 71 / F Type: REG RCR [...] 1 on 11/30/2021. Most recent laboratories from [facility] dated 08/06/2022 reveal hemoglobin - 10.7; [...] withactivities and [facility] [facility]04/2022 showed hemoglobin 11.7 with serum [...] that time. On review, her labs from [facility] reveal hgb 9.0 and iron saturation 5%. We will plan for repeat Feraheme x 2 doses and will follow-up in 6 weeks again for repeat labs 11/24/2021: She is here for follow-up today and transfer of followup (previouslyfollowed by Dr. Anam Abarca). She reports improved energy since most recent RBC transfusion and iron infusions at [place] but persistent fatigue. She still has episodes [...] No iron panel was reported. Labs from [place] 11/22/2021 with improved hemoglobin to 9.4 but still low iron saturation 3.9% and ferritin 20. 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 Followup with REFRIGERATION OPERATOR in 6 weeks to review iron studies [...] improved after receiving Feraheme in September at [facility] she has her labs done at [facility] as well, none done this month [...] Mood [-], Anxiety [-], Stressed [-] [facility] - Medical History Medical History: Medical History [...] of the small bowel 04/28/2021 follow-up in [place]: o FeraHeme 510 mg IV o Repeat Iron Studies, CBC, Ferritin in 1 month o Follow-up in [address] Rivera at [facility] September 2021 follow-up labs at [facility] with again low iron saturation at 3.5%, ferritin 15 and hemoglobin 6.6. She received 2 doses of Feraheme as well as 2 units PRBCs at [facility] 10/24/2021: She feels much better after [...] have her follow-up in 6 weeks with REFRIGERATION OPERATOR and will plan for repeat iron studies [...] 1 on 11/30/2021. Most recent laboratories from [facility] dated 08/06/2022 reveal hemoglobin - 10.7; [...] for coordination of care (as documented) and size-mo-aukh counseling of patient and/or family. Dictated By: Gertrudis Louis APRN DD/ 1350 Signed By: <Electronically signed by SONIA Louis> 08/09/22 141 [facility] Work Phone: Progress note Author Shiela Chan [facility] January 08, 2023 2:18pm Note Date/Time January 08, 2023 2:14p m [facility] [place] [address] Hem/Onc Follow Up Note - OP Signed Patient: Janine Conde MR#: [id number] : 1950 Acct:[id number] Age/Sex: 72 / F Type: REG RCR [...] of the small bowel 04/28/2021 follow-up in [place]: o FeraHeme 510 mg IV o Repeat Iron Studies, CBC, Ferritin in 1 month o Follow-up in [address] Rivera at [facility] September 2021 follow-up labs at [facility] with again low iron saturation at 3.5%, ferritin 15 and hemoglobin 6.6. She received 2 doses of Feraheme as well as 2 units PRBCs at [facility] 10/24/2021: She feels much better after [...] have her follow-up in 6 weeks with REFRIGERATION OPERATOR and will plan for repeat iron studies [...] 1 on 11/30/2021. Most recent laboratories from [facility] dated 08/06/2022 reveal hemoglobin - 10.7; [...] admitted for 2-3 days with anemia at [facility] and received transfusional support. Current labs [...] symptoms. She notes she was admitted at [facility] end of September for anemia and [...] 1 on 11/30/2021. Most recent laboratories from [facility] dated 08/06/2022 reveal hemoglobin - 10.7; [...] withactivities and her most recent labs at [facility] 06/04/2022 showed hemoglobin 11.7 with serum [...] that time. On review, her labs from [facility] reveal hgb 9.0 and iron saturation 5%. We will plan for repeat Feraheme x 2 doses and will follow-up in 6 weeks again for repeat labs 11/24/2021: She is here for follow-up today and transfer of followup (previouslyfollowed by Dr. Anam Abarca). She reports improved energy since most recent RBC transfusion and iron infusions at [place] but persistent fatigue. She still has episodes [...] No iron panel was reported. Labs from [place] 11/22/2021 with improved hemoglobin to 9.4 but still low iron saturation 3.9% and ferritin 20. 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 Followup with REFRIGERATION OPERATOR in 6 weeks to review iron studies [...] improved after receiving Feraheme in September at [facility] she has her labs done at [facility] as well, none done this month [...] symptoms. She notes she was admitted at [facility] end of September for anemia and [...] for coordination of care (as documented) and kkgy-br-[id number] counseling of patient and/or family. [facility] - Medical History Medical History: Medical History [...] DD/ 1413 Signed By: <Electronically signed by ELECTRICAL DESIGNER Shiela Chan> 01/08/23 1418 [facility] Work Phone: Progress note Author Shiela Chan [facility] March 12, 2023 3:30pm Note Date/Time March 12, 2023 1:3 3pm [facility] [place] [address] Hem/Onc Follow Up Note - OP Signed Patient: Janine Conde MR#: [id number] : 1950 Acct:[id number] Age/Sex: 72 / F Type: REG RCR [...] of the small bowel 04/28/2021 follow-up in [place]: o FeraHeme 510 mg IV o Repeat Iron Studies, CBC, Ferritin in 1 month o Follow-up in [address] Rivera at [facility] September 2021 follow-up labs at [facility] with again low iron saturation at 3.5%, ferritin 15 and hemoglobin 6.6. She received 2 doses of Feraheme as well as 2 unitsPRBCs at [facility] 10/24/2021: She feels much better after [...] have her follow-up in 6 weeks with REFRIGERATION OPERATOR and will plan for repeat iron studies [...] 1 on 11/30/2021. Most recent laboratories from [facility] dated 08/06/2022 reveal hemoglobin - 10.7; [...] admitted for 2-3 days with anemia at [facility] and received transfusional support. Current labs [...] symptoms. She notes she was admitted at [facility] end of September for anemia and [...] 1 on 11/30/2021. Most recent laboratories from [facility] dated 08/06/2022 reveal hemoglobin - 10.7; [...] withactivities and her most recent labs at [facility] 06/04/2022 showed hemoglobin 11.7 with serum [...] that time. On review, her labs from [facility] reveal hgb 9.0 and iron saturation 5%. We will plan for repeat Feraheme x 2 doses and will follow-up in 6 weeks again for repeat labs 11/24/2021: She is here for follow-up today and transfer of followup (previouslyfollowed by Dr. Anam Abarca). She reports improved energy since most recent RBC transfusion and iron infusions at [place] but persistent fatigue. She still has episodes [...] No iron panel was reported. Labs from [place] 11/22/2021 with improved hemoglobin to 9.4 but still low iron saturation 3.9% and ferritin 20. 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 Followup with REFRIGERATION OPERATOR in 6 weeks to review iron studies [...] improved after receiving Feraheme in September at [facility] she has her labs done at [facility] as well, none done this month [...] symptoms. She notes she was admitted at [facility] end of September for anemia and [...] for coordination of care (as documented) and [id number] counseling of patient and/or family. [facility] - Medical History Medical History: Medical History [...] <Electronically signed by SONIA Chan> 03/12/23 1530 [facility] Work Phone: Progress note Author Shiela Chan [facility] August 13, 2023 1:27pm Note Date/Time August 13, 2023 1: 13pm [facility] [place] [address] Hem/Onc Follow Up Note - OP Signed Patient: Janine Conde MR#: [id number] : 1950 Acct:[id number] Age/Sex: 72 / F Type: REG RCR Copies to: DO Ricky Jodran MD~ Date of Service: 08/13/2023 Time of [...] have her follow-up in 6 weeks with REFRIGERATION OPERATOR and will plan for repeat iron studies [...] admitted for 2-3 days with anemia at [facility] and received transfusional support. Current labs [...] Injectafer in November/January/March 2023. Followup labs at [facility] show hemoglobin 8.4 with iron saturation 6.3% [...] symptoms. She notes she was admitted at [facility] end of September for anemia and [...] 1 on 11/30/2021. Most recent laboratories from [facility] dated 08/06/2022 reveal hemoglobin - 10.7; [...] withactivities and her most recent labs at [facility] 06/04/2022 showed hemoglobin 11.7 with serum [...] that time. On review, her labs from [facility] reveal hgb 9.0 and iron saturation 5%. We will plan for repeat Feraheme x 2 doses and will follow-up in 6 weeks again for repeat labs 11/24/2021: She is here for follow-up today and transfer of followup (previouslyfollowed by Dr. Anam Abarca). She reports improved energy since most recent RBC transfusion and iron infusions at [place] but persistent fatigue. She still has episodes [...] No iron panel was reported. Labs from [place] 11/22/2021 with improved hemoglobin to 9.4 but still low iron saturation 3.9% and ferritin 20. 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 Followup with REFRIGERATION OPERATOR in 6 weeks to review iron studies after Feraheme 510mg x 2 doses and Octreotide LAR 20mg IM monthly. 10/24/2021 (YAZAN Chan) her energy is much improved after receiving Feraheme in September at [facility] she has her labs done at [facility] as well, none done this month [...] for coordination of care (as documented) and [id number]-[id number] counseling of patient and/or family. [facility] - Medical History Medical History: Medical History [...] <Electronically signed by SONIA Chan> 08/13/23 1327 [facility] Work Phone: Summary Purpose Family History Relationship [...] surgery Diagnosis 1 Macromastia (N62) Referral Organization [facility] Mainor boucher Referring Provider First Name Shalom Referring Provider Last Name Mainor Referring Provider Specialty Internal Me dicine Referred Organization [facility] Referred Provider Gm Johnson Referred Address [address],[place], [place],[address] Referred Provider Specialty Plastic and Reconstructive Surgery [...] section and content) DATE CREATED AUTHOR 04/17/2022 [facility] DATE CREATED AUTHOR AUTHOR'S ORGANIZ ATION 11/10/2022 [facility] DATE CREATED AUTHOR AUTHOR'S ORGANIZ ATION 08/14/2023 [facility] Care Teams (unrecognized sec tion and content) [...] FOR VISIT (unrecogniz ed section and content) [id number] [facility] follow upCHECK UPMedication ChangeB-12 Shot6 WEEK FOLLOW [id number] here at the request of Shiela Chan NP for iron deficiency anemiaNo InformationNo [id number] SHOTPatient here for follow up EGD6 month [...] BE BASED ON THE PRIMARY CLINICAL RECORDS. [facility]. provides no warranty or guarantee of the accuracy or completeness of information in this document.
[2023-10-21 09:33] LABS: Lactate/Lactic Acid 1.9 mmol/L (0.4-2.0)
[2023-10-21] MEDS: 0.9 % SODIUM CHLORIDE 250 ML 10 ML IV (09:59)
[2023-10-21] MEDS: DIPHENHYDRAMINE HCL 50 MG/ML (1ML) VIAL 25 MG IV (09:59)
--- NOTE | 2023-10-21 11:12 | PM.HP ---
HPI H&P: HPI History of Present Illness Chief complaint: HEMATEMESIS/UPPER GI BLEED Narrative: 72 y/o female to ER with hematemsis and concerned of GI bleed. Woke up at 2 am with coffee ground emesis. C/o dark stools for about 2 weeks. History of GI bleed and iron deficiency anemia. Prior EGD and colonoscopy with most recent in May 2023. Prior ulcer but told healing in past and also has large hiatal hernia. Patient reports drinking alcohol daily and over past several days drinking about 5-6 liquor drinks a day. Denies history of alcohol withdrawal. To ER and Hgb decreased to 9.8 from 13.0 on 08/06/23. CT showed large hiatal hernia but otherwise normal. Admitted for treatment. Opioid HPI Opioid Management Most Recent Opioid Data: Last Pain Assessment 10/21/23 11:00 Last ORT Total Score 4 10/21/23 08:42 Last ORT Risk Category Moderate Risk 10/21/23 08:42 Review of Systems ROS Constitutional Denies: fever, chills or fatigue Cardiovascular Denies: chest pain, palpitations or edema Respiratory Denies: shortness of breath, cough or wheezing Gastrointestinal Reports: nausea, vomiting, coffee grounds in vomit and change in stool character; Denies: abdominal pain or diarrhea Genitourinary Denies: painful urination [facility] Medical History (Updated 10/21/23 @ 11:03 by Marcos Calderon MD) FHx: cholecystectomy ?Z83.79 - Family history of other diseases of the digestive system (ICD-10) GI bleed ?K92.2 - Gastrointestinal hemorrhage, unspecified (ICD-10) Iron deficiency anemia ?D50.9 - Iron deficiency anemia, unspecified (ICD-10) Surgical History (Updated 10/21/23 @ 09:07 by Tamanna Burris) H/O: hysterectomy ?Z90.710 - Acquired absence of both cervix and uterus (ICD-10) Social History (Updated 10/21/23 @ 09:08 by Tamanna Burris) Within the past year, how often did you have a drink containing alcohol: 4 or more times a week Within the past year, how many standard drinks containing alcohol did you have on a typical day: 5 or 6 Within the past year, how often did you have six or more drinks on one occasion: weekly Total score: 7 Score interpretation: A score of 3 or more indicates drinking is likely to affect patient's safety. 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 Known occupational exposures/hazards: No Highest level of school completed/degree received: high school graduate Meds Home Medications and Allergies Home Medications Medication Instructions Recorded Confirmed Type buspirone 15 mg tablet 22.5 mg PO BID 10/21/23 10/21/23 History cholestyramine-aspartame 4 gram 1 ea PO BID 10/21/23 10/21/23 History oral powder for susp in a packet (Cholestyramine Light) clonazepam 0.5 mg tablet 0.5 mg PO QPM 10/21/23 10/21/23 History clonidine HCl 0.1 mg tablet 0.1 mg PO .once a day 10/21/23 10/21/23 History dicyclomine 10 mg capsule 10 mg PO .once a day 10/21/23 10/21/23 History trazodone 100 mg tablet 100 mg PO QPM 10/21/23 10/21/23 History venlafaxine 150 mg 150 mg PO DAILY 10/21/23 10/21/23 History capsule,extended release 24 hr Allergies Allergy/AdvReac Type Severity Reaction Status Date / Time No Known Drug Allergies Allergy Verified 10/21/23 05:41 Exam Constitutional Vital Signs, click to edit/add: Last Vital Signs Temp 98.4 F 10/21/23 10:05 Pulse 112 H 10/21/23 10:05 Resp 16 10/21/23 10:05 BP 132/57 10/21/23 10:05 Pulse Ox 94 L 10/21/23 08:48 O2 Del Method Room Air 10/21/23 08:48 Documenting provider has reviewed patient's vital signs: yes Common normals: no apparent distress, oriented x3 and alert HENMT Common normals: normocephalic Eye Common normals: PERRL and EOMs intact bilaterally Cardio Common normals: regular rate, regular rhythm, no gallops, no murmurs and no rub GI Common normals: Normal to inspection, nondistended, normoactive bowel sounds present and non-tender Extremity Common normals: no pedal edema Results Labs Labs: Short CBC 10/21/23 Range/Units 05:47 WBC 7.9 (4.0-11.0) 10^3/uL Hgb 9.8 L (12.0-16.0) g/dL Hct 34.3 L (36.0-48.0) % Plt Count 328 (150-450) 10^3/uL BMP 10/21/23 05:47 Sodium 143 Potassium 4.0 Chloride 106 Carbon Dioxide 19.0 L BUN 28.0 H Creatinine 0.91 Glucose 124 H Calcium 8.1 L Liver Function 10/21/23 Range/Units 05:47 Total Bilirubin 0.4 (0.2-1.0) mg/dL AST 14 L (15-37) U/L ALT 18 (14-59) U/L Alkaline Phosphatase 118 H (46-116) U/L Albumin 3.0 L (3.4-5.0) g/dL Urine 10/21/23 Range/Units 07:35 Urine Color Lt. yellow (YELLOW) Urine Clarity Clear (CLEAR) Urine pH 5.0 (5.0-9.0) Ur Specific [place] 1.025 (1.005-1.025) Urine Protein Negative (NEG/TRACE) mg/dL Urine Glucose (UA) Negative (NEGATIVE) mg/dL Imaging CT scan - abdomen: Attestation: I have reviewed the pertinent imaging results. Assessment and Plan Assessment and Plan (1) Acute upper GI bleed: (2) Iron deficiency anemia due to chronic blood loss: (3) Peptic ulcer disease with hemorrhage: (4) Nondependent alcohol abuse, continuous drinking behavior: (5) Benign essential hypertension: (6) Hiatal hernia with GERD: Plan History of PUD and presented with bleeding. General surgery consulted and will go for EGD this afternoon. Make NPO and give IV fluids. Start IV protonix and add carafate. Discussed alcohol intake and likely irritating ulcer and causing bleeding. Strong history of alcohol abuse and at risk for withdrawal and DTs. Will monitor with CIWA protocol and use librium PRN. Hgb decreased and give PRBC. Monitor hgb and monitor for signs of active bleeding. Resume home medication. Patient at high risk of complications and morbidity and needs close monitoring in ICU.
--- NOTE | 2023-10-21 11:30 | P.GSCN_ITS ---
History of Present Illness Consult details Consult date: 10/21/23 Reason for consult: other (Hematemesis /melena/ anemia) Requesting physician: Rod Turner Narrative: Tu Thomas is a 72-year-old female who presented to the ED with history of hematemesis beginning at 2:00 a.m. today associated with melena and found to be anemic with a hemoglobin of 9.8. Her previous hemoglobin was 13 the last time she was seen in this institution. She had upper and lower endoscopy in August [address] Elias who failed to find any abnormality but thought she might have an ulcer for the same reasons. She was also found to have a hiatal hernia. CT scan of the abdomen and pelvis were done and were told to me to be normal by Dr. Turner except for the hiatal hernia. Her lactate is elevated at 6 but she denied any abdominal pain or pain out of proportion and nothing on physical examination per Dr. Turner the ED physician.she sstates that she has some slight pain in the right lower quadrant. She's had a prior cholecystectomy. Her family physician is Dr. Rustam valverde. She denies any history of nonsteroidal anti-inflammatory drug use except for a few weeks ago. She has received two units of blood packed red blood cells since admission to the hospital. She slightly tachycardic with a heart rate 110 bpm. She denies any chest pain shortness of breath. Review of Systems ROS Status of ROS 10 or more systems reviewed and unremark able except as noted in history and below [facility] Medical History FHx: cholecystectomy ?Z83.79 - Family history of other diseases of the digestive system (ICD-10) GI bleed ?K92.2 - Gastrointestinal hemorrhage, unspecified (ICD-10) Iron deficiency anemia ?D50.9 - Iron deficiency anemia, unspecified (ICD-10) Surgical History H/O: hysterectomy ?Z90.710 - Acquired absence of both cervix and uterus (ICD-10) Social History Within the past year, how often did you have a drink containing alcohol: 4 or more times a week Within the past year, how many standard drinks containing alcohol did you have on a typical day: 5 or 6 Within the past year, how often did you have six or more drinks on one occasion: weekly Total score: 7 Score interpretation: A score of 3 or more indicates drinking is likely to affect patient's safety. 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 Known occupational exposures/hazards: No Highest level of school completed/degree received: high school graduate Meds Home Medications and Allergies Home Medications Medication Instructions Recorded Confirmed Type buspirone 15 mg tablet 22.5 mg PO BID 10/21/23 10/21/23 History cholestyramine-aspartame 4 gram 1 ea PO BID 10/21/23 10/21/23 History oral powder for susp in a packet (Cholestyramine Light) clonazepam 0.5 mg tablet 0.5 mg PO QPM 10/21/23 10/21/23 History clonidine HCl 0.1 mg tablet 0.1 mg PO .once a day 10/21/23 10/21/23 History dicyclomine 10 mg capsule 10 mg PO .once a day 10/21/23 10/21/23 History trazodone 100 mg tablet 100 mg PO QPM 10/21/23 10/21/23 History venlafaxine 150 mg 150 mg PO DAILY 10/21/23 10/21/23 History capsule,extended release 24 hr Allergies Allergy/AdvReac Type Severity Reaction Status Date / Time No Known Drug Allergies Allergy Verified 10/21/23 05:41 Exam Constitutional Vital Signs, click to edit/add: Last Vital Signs Temp 98.1 F 10/21/23 11:26 Pulse 115 H 10/21/23 11:22 Resp 16 10/21/23 11:22 BP 132/57 10/21/23 11:26 Pulse Ox 94 L 10/21/23 08:48 O2 Del Method Room Air 10/21/23 08:48 Results Labs Labs: Abnormal lab results 10/21/23 10/21/23 10/21/23 Range/Units 05:47 06:23 07:35 RBC 3.52 L (4.20-5.40) 10^6/uL Hgb 9.8 L (12.0-16.0) g/dL Hct 34.3 L (36.0-48.0) % MCHC 28.6 L (29.9-35.2) g/dL Carbon Dioxide 19.0 L (21.0-32.0) mmol/L BUN 28.0 H (7.0-18.0) mg/dL Glucose 124 H (74-106) mg/dL Lactate 6.7 H* (0.4-2.0) mmol/L Calcium 8.1 L (8.5-10.1) mg/dL AST 14 L (15-37) U/L Alkaline Phosphatase 118 H (46-116) U/L Troponin I High Sens <4.0 L (4.0-51.3) pg/mL Albumin 3.0 L (3.4-5.0) g/dL Urine Ketones >=80 A (NEGATIVE) mg/dL Urine Occult Blood Small A (NEGATIVE) Urine RBC 2-5 A (0-2) #/HPF Urine WBC 0-2 A (NONE SEEN) #/HPF Urine Casts Seen A (NONE SEEN) #/LPF Crossmatch See Detail Diabetes panel 10/21/23 Range/Units 05:47 Sodium 143 (136-145) mmol/L Potassium 4.0 (3.5-5.1) mmol/L Chloride 106 (98-107) mmol/L Carbon Dioxide 19.0 L (21.0-32.0) mmol/L BUN 28.0 H (7.0-18.0) mg/dL Creatinine 0.91 (0.55-1.02) mg/dL Glucose 124 H (74-106) mg/dL Calcium 8.1 L (8.5-10.1) mg/dL AST 14 L (15-37) U/L ALT 18 (14-59) U/L Alkaline Phosphatase 118 H (46-116) U/L Total Protein 6.6 (6.4-8.2) g/dL Albumin 3.0 L (3.4-5.0) g/dL Calcium panel 10/21/23 Range/Units 05:47 Calcium 8.1 L (8.5-10.1) mg/dL Albumin 3.0 L (3.4-5.0) g/dL Pituitary panel 10/21/23 Range/Units 05:47 Sodium 143 (136-145) mmol/L Potassium 4.0 (3.5-5.1) mmol/L Chloride 106 (98-107) mmol/L Carbon Dioxide 19.0 L (21.0-32.0) mmol/L BUN 28.0 H (7.0-18.0) mg/dL Creatinine 0.91 (0.55-1.02) mg/dL Glucose 124 H (74-106) mg/dL Calcium 8.1 L (8.5-10.1) mg/dL Adrenal panel 10/21/23 Range/Units 05:47 Sodium 143 (136-145) mmol/L Potassium 4.0 (3.5-5.1) mmol/L Chloride 106 (98-107) mmol/L Carbon Dioxide 19.0 L (21.0-32.0) mmol/L BUN 28.0 H (7.0-18.0) mg/dL Creatinine 0.91 (0.55-1.02) mg/dL Glucose 124 H (74-106) mg/dL Calcium 8.1 L (8.5-10.1) mg/dL Total Bilirubin 0.4 (0.2-1.0) mg/dL AST 14 L (15-37) U/L ALT 18 (14-59) U/L Alkaline Phosphatase 118 H (46-116) U/L Total Protein 6.6 (6.4-8.2) g/dL Albumin 3.0 L (3.4-5.0) g/dL All other labs normal. Imaging Abdomen CT scan report/results: report reviewed Assessment and Plan Assessment and Plan (1) Acute upper GI bleed: (2) Iron deficiency anemia due to chronic blood loss: (3) Peptic ulcer disease with hemorrhage: (4) Nondependent alcohol abuse, continuous drinking behavior: (5) Benign essential hypertension: (6) Hiatal hernia with GERD: (7) Obesity due to excess calories: Qualifiers: Body mass index: BMI 39.0-39.9 Plan EGD with possible biopsy. Risks benefits alternatives to endoscopy may include perforation or bleeding. She understood all the above and wished to proceed. If upper endoscopy is negative then would proceed with colonoscopy again tomorrow. May need GI bleeding scan if bleeding continues prior to colonoscopy Since upper and lower endoscopy 2 months ago were negative.
--- NOTE | 2023-10-21 11:48 | CM.NOTE ---
Rounds made with Dr. Calderon, discussed with pt about consult to general surgery and blood transfusion. Pt verbalizes understanding, pt also voices that she drinks daily (liquor and occasionally beer) about [address] Calderon will put patient on medication for any withdraw.
--- NOTE | 2023-10-21 12:30 | SWNOTE1 ---
SW spoke with pt in regards to her alcohol use. Pt voiced she has not been drinking for very long, SW asked how long? She stated it has only been a few years. Pt voiced she does plan on stopping or not drinking as much. Pt voiced she drinks liquor. Pt lives at home with her , who is her support. SW asked if she has been to AA meetings before? She voiced she has not. SW offered AA meetings list, pt refused. SW also offered inpt or outpt counseling/rehab. Pt shook her head no and voiced she does not feel she needs that at this time. SW advised pt if she gets home and does want any resources, she can reach out to SW at hospital. Pt voiced understanding.
--- NOTE | 2023-10-21 14:24 | PM.GSPRC ---
Date of procedure: 10/21/23 Indications for Procedure: hematemesis/melena/anemia Pre-op diagnosis: hematemesis/melena/anemia/large hiatal hernia Post-op diagnosis: other (erosive gastritis in hiatal hernia) Procedure: EGD with biopsy erosive gastritis and hiatal hernia/50 percent of stomach is in chest and this erosive gastritis was in that portion of the stomach without ulceration no varices were found Findings: erosive gastritis severe/large hiatal hernia thirty percent of stomach in chest Anesthesia: MAC Surgeon: Parish Mckeon Procedure Summary: Patient was taken to the endoscopy suite placed in the left lateral recumbent position and given sedation by the border machine operator. The Olympus EGD scope was advanced under direct visualization into the esophagus and stomach of which fifty percent was in the chest compatible with a large hiatal hernia. The rest the stomach into the pylorus and into the 1st 2nd 3rd and 4th portions of the duodenum which were normal. There was no blood in the duodenum or the stomach.in the hiatal hernia portion of the stomach as a large black block? Versus bezoar unable to differentiate; pictures were taken. There was erosive gastritis noted. Biopsies were taken of this area. Stasis was maintained. The scope was retroflexed on itself looking the GE junction which was normal. The scope was then slowly withdrawn and the esophagus was normal and there were no varices seen. There were no ulcers in the esophagus noted. Would recommend refraining from alcohol use and put on a proton pump inhibitor twice daily eight weeks as well as sucralfate once by mouth before meals and at bedtime for at least one month.may want to consider referral to surgeon and performed hiatal hernia repair in [place] due to this having occurred twice within the last six months once at [facility] and now here. Estimated blood loss (mL): 5 Specimens: gastric biopsies from the hiatal hernia portion of the stomach above the diaphragm Complications: No Condition: stable Disposition: PACU
[2023-10-21] MEDS: 0.9 % SODIUM CHLORIDE 1,000 ML 70 ML IV (15:20)
[2023-10-21] MEDS: FOLIC ACID 1 MG TABLET PO (15:21)
[2023-10-21] MEDS: SUCRALFATE 1 GM TABLET PO ×2 (15:22→21:13)
[2023-10-21] MEDS: THIAMINE MONONITRATE (VIT B1) 100 MG TABLET PO (15:22)
[2023-10-21] MEDS: CLONIDINE HCL 0.1 MG TABLET 0.100000000000000006 MG PO ×2 (15:23→21:13)
[2023-10-21] MEDS: BUSPIRONE HCL 15 MG TABLET 22.5 MG PO ×2 (15:24→21:13)
[2023-10-21 15:42] LABS: Lactate/Lactic Acid 1.1 mmol/L (0.4-2.0)
[2023-10-21] MEDS: CLORDIAZEPOXIDE HCl 25 MG CAPSULE PO ×2 (17:16→19:42)
[2023-10-21] MEDS: TRAZODONE HCL 50 MG TABLET 100 MG PO (21:12)
[2023-10-21] MEDS: CLONAZEPAM 0.5 MG TABLET PO (21:14)
[2023-10-22] VITALS: BP 137/66; PULSE 95; RESP 18; TEMP 37.1; O2SAT 97
[2023-10-22] MEDS: CLORDIAZEPOXIDE HCl 25 MG CAPSULE PO (01:37)
[2023-10-22 01:49] VITALS: PULSE 107
[2023-10-22 04:00] VITALS: BP 110/62; PULSE 95; RESP 18; TEMP 36.7; O2SAT 95
[2023-10-22 06:00] VITALS: PULSE 95
[2023-10-22 07:04] LABS: Chloride 107 mmol/L (98-107); Potassium 3.6 mmol/L (3.5-5.1); Sodium 139 mmol/L (136-145)
[2023-10-22 07:05] LABS: BUN Creatinine Ratio 28.4; Carbon Dioxide 23.6 mmol/L (21.0-32.0); Estimated GFR (African America >60 (>=60); Estimated GFR (Non-African Ame >60 (>=60); Glucose 114 mg/dL (74-106)
[2023-10-22 07:06] LABS: Calcium 7.8 mg/dL (8.5-10.1)
[2023-10-22 07:15] LABS: Basophils Absolute Auto 0.1 10^3/uL (0.0-0.1); Basophils Percent Auto 1.1 % (0.2-2.0); Eosinophils Absolute Auto 0.1 10^3/uL (0.0-0.7); Eosinophils Percent Auto 0.6 % (0.9-7.0); Hemoglobin 10.4 g/dL (12.0-16.0); Immature Granulocytes Abs Auto 0.03 10^3/uL (0.00-0.03); Immature Granulocytes Pct Auto 0.4 % (0.0-0.5); Lymphocytes Absolute Auto 1.4 10^3/uL (1.2-3.8); Lymphocytes Percent Auto 16.2 % (20.5-60.0); Mean Corpuscular HGB Conc 29.7 g/dL (29.9-35.2); Mean Corpuscular Volume 94.3 fL (81.0-99.0); Monocytes Absolute Auto 0.9 10^3/uL (0.3-0.8); Monocytes Percent Auto 10.8 % (1.7-12.0); Neutrophils Absolute Auto 5.9 10^3/uL (1.4-6.5); Neutrophils Percent Auto 70.9 % (43.0-75.0); Platelet Count 198 10^3/uL (150-450); Red Blood Count 3.71 10^6/uL (4.20-5.40); Red Cell Distribution Width 15.9 % (11.0-15.0); White Blood Count 8.4 10^3/uL (4.0-11.0)
[2023-10-22] MEDS: SUCRALFATE 1 GM TABLET PO (07:28)
[2023-10-22 08:00] VITALS: PULSE 79
[2023-10-22] MEDS: PANTOPRAZOLE SODIUM 40 MG VIAL IV (09:32)
[2023-10-22] MEDS: VENLAFAXINE HCL ER 150 MG CAPSULE PO (09:33)
[2023-10-22] MEDS: FOLIC ACID 1 MG TABLET PO (09:33)
[2023-10-22] MEDS: THIAMINE MONONITRATE (VIT B1) 100 MG TABLET PO (09:33)
[2023-10-22] MEDS: CLONIDINE HCL 0.1 MG TABLET 0.100000000000000006 MG PO (09:33)
[2023-10-22] MEDS: BUSPIRONE HCL 15 MG TABLET 22.5 MG PO (09:33)
[2023-10-22 10:00] VITALS: PULSE 72; O2SAT 94
--- NOTE | 2023-10-22 10:56 | CM.NOTE ---
Rounds made with Dr. Calderon, pt will discharge to home today. Dr. Calderon discussed with pt outpatient counseling for alcohol or AA meetings, pt states she has family support and refuses any assistance.
--- NOTE | 2023-10-22 11:14 | PM.DS1 ---
DS: Providers Provider Date of admission: 10/21/23 08:30 Primary care physician: Shalom Hayward DO DS: Diagnosis Discharge Diagnosis (1) Acute upper GI bleed: (2) Iron deficiency anemia due to chronic blood loss: (3) Chronic erosive gastritis: (4) Hiatal hernia with GERD: (5) History of peptic ulcer disease: (6) Nondependent alcohol abuse, continuous drinking behavior: (7) Benign essential hypertension: (8) Obesity due to excess calories: Qualifiers: Body mass index: BMI 39.0-39.9 DS: Summary Hospital Course Hospital Course: Reason for admission: See H&P for details. 72 y/o female to ER with hematemsis and concerned of GI bleed. Woke up at 2 am with coffee ground emesis. C/o dark stools for about 2 weeks. History of GI bleed and iron deficiency anemia. Prior EGD and colonoscopy with most recent in May 2023. Prior ulcer but told healing in past and also has large hiatal hernia. Patient reports drinking alcohol daily and over past several days drinking about 5-6 liquor drinks a day. Denies history of alcohol withdrawal. To ER and Hgb decreased to 9.8 from 13.0 on 08/06/23. CT showed large hiatal hernia but otherwise normal. Admitted for treatment. Hospital course: Started IV protonix and carafate. General surgery consulted. Gave 1 unit PRBC. Resumed home medication. Started CIWA protocol to assess for alcohol withdrawal and covered with librium. Taken to OR for EGD and found erosive gastritis in portion of stomach contained within hiatal hernia. No active bleeding or ulcers. Did well after procedure. Decreased appetite but no emesis. Hgb stable. Started to have withdrawal symptoms and very shaky but improved with librium. Symptoms resolved and patient recovered quicker than expected. Discharged home in stable condition. Will continue protonix 40 BID and carafate ACHS. Discussed importance of abstaining from alcohol. Will send in librium to use PRN. Resume other home medication as directed. Follow up with PCP in 1-2 weeks. Time Spent with Patient Time attestation: Total time spent providing and/or coordinating discharge services: Exam Constitutional Vital Signs, click to edit/add: Last Vital Signs Temp 98.1 F 10/22/23 04:00 Pulse 72 10/22/23 10:00 Resp 18 10/22/23 04:00 BP 110/62 10/22/23 04:00 Pulse Ox 94 L 10/22/23 10:00 O2 Del Method Nasal Cannula 10/22/23 04:00 Documenting provider has reviewed patient's vital signs: yes Common normals: oriented x3 and alert HENMT Common normals: normocephalic Eye Common normals: PERRL and EOMs intact bilaterally Respiratory Common normals: normal respiratory effort and clear to auscultation bilaterally Cardio Common normals: regular rate, regular rhythm, no gallops, no murmurs and no rub GI Common normals: Normal to inspection, nondistended, normoactive bowel sounds present and non-tender Extremity Common normals: no pedal edema DS: Data Data Completed and Pending Labs on day of discharge: Labs from last 24 hours 10/22/23 10/21/23 10/21/23 03:57 15:18 06:23 WBC 8.4 RBC 3.71 L Hgb 10.4 L Hct 35.0 L MCV 94.3 MCH 28.0 MCHC 29.7 L RDW 15.9 H Plt Count 198 MPV 11.0 Neut % (Auto) 70.9 Lymph % (Auto) 16.2 L Hodgeman % (Auto) 10.8 Eos % (Auto) 0.6 L Baso % (Auto) 1.1 Neut # (Auto) 5.9 Lymph # (Auto) 1.4 Hodgeman # (Auto) 0.9 H Eos # (Auto) 0.1 Baso # (Auto) 0.1 Abs Immat Gran (auto) 0.03 Imm/Tot Granulo (auto) 0.4 Sodium 139 Potassium 3.6 Chloride 107 Carbon Dioxide 23.6 Anion Gap 12.0 BUN 21.0 H Creatinine 0.74 Est GFR ( Amer) >60 Est GFR (Non-Af Amer) >60 BUN/Creatinine Ratio 28.4 Glucose 114 H Lactate 1.1 Calcium 7.8 L Crossmatch See Detail Discharge Plan Discharge Disposition: Home, Self-Care Discharge Medications: New chlordiazepoxide HCl 25 mg Capsule 25 mg PO Q4H PRN (Reason: Alcohol Withdrawal) 5 Days Qty: 30 0RF sucralfate 1 gram Tablet 1 g PO ACHS Qty: 120 0RF pantoprazole 40 mg tablet,delayed release (DR/EC) 40 mg PO BID Qty: 60 0RF Continued clonazepam 0.5 mg tablet 0.5 mg PO QPM venlafaxine 150 mg capsule,extended release 24hr 150 mg PO DAILY trazodone 100 mg tablet 100 mg PO QPM buspirone 15 mg tablet 22.5 mg PO BID cholestyramine-aspartame [Cholestyramine Light] 4 gram powder in packet 1 ea PO BID clonidine HCl 0.1 mg tablet 0.1 mg PO .once a day dicyclomine 10 mg capsule 10 mg PO .once a day Activity: increase activity as tolerated Diet: advance to your usual diet Print Language: Telugu Patient Instructions: Chlordiazepoxide (By mouth), Sucralfate (By mouth) (Carafate), Pantoprazole (By mouth) (Protonix), Hiatal Hernia (GEN), Abuse of Alcohol (GEN), Alcohol Withdrawal (GEN) Forms: Portal Instructions Follow Up Appointments: Follow up with Dr Hayward October 27 at 10:45 AM
--- NOTE | 2023-10-22 11:24 | CM.NOTE ---
Important Message From Medicare discussed with pt, pt verbalizes understanding and signs paper. Original given to pt and copy placed on pt's chart.
[2023-10-23 09:31] LABS: H Pylori Tissue, Urease Negative
--- NOTE | 2023-10-23 14:55 | CM.DCFOLLOWU ---
Person spoke with: patient How are you feeling? better How is your pain? minimal pain in stomach Did you understand your discharge instructions? yes Do you have any questions about your discharge instructions? no Were you given any prescriptions at discharge? yes Were you able to get your prescriptions filled? yes Do you understand how to take your medications as ordered? yes Do you have any questions about your follow up appointment and do you plan to keep your follow up appointment? no questions, has follow up with PCP on 10/28/23 Is there anything else that you would like to discuss? no Questions/Comments/Concerns/Other: N/A
== END 2023-10-22 11:41 | disposition home or self-care (01) | DRG 378 ==
LOC: ER 08:44 → ICU 08:45
PROVIDERS: Surgery; Admitting Provider Family Medicine; Emergency Provider Emergency Medicine; PCP Internal Medicine; Visit Provider Family Medicine
PROC: 0DB68ZX Excision of Stomach, Via Natural or Artificial Opening Endoscopic, Diagnostic (ICD-10-PCS; principal; 2023-10-21 14:30)
DX: K29.51 Unspecified chronic gastritis with bleeding (principal); F10.139 Alcohol abuse with withdrawal, unspecified; D50.0 Iron deficiency anemia secondary to blood loss (chronic); I10 Essential (primary) hypertension; K21.9 Gastro-esophageal reflux disease without esophagitis; K44.9 Diaphragmatic hernia without obstruction or gangrene; E66.09 Other obesity due to excess calories; Z68.39 Body mass index [BMI] 39.0-39.9, adult; Z79.899 Other long term (current) drug therapy; Z90.710 Acquired absence of both cervix and uterus; Z87.11 Personal history of peptic ulcer disease; Z90.49 Acquired absence of other specified parts of digestive tract
CPT/HCPCS: 36415; 36430; 74177; 80048; 80053; 81001; 83605; 83880; 84145; 84484; 85025; 85610; 85730; 86850; 86900; 86901; 87040; 87077; 87338; 88305; 88342; 93005; 96374; 96375; 96376; 99285; 99999; G0328; J2704; P9016; Q9967

== ENCOUNTER 2023-11-05 14:11 | Outpatient (OUT) | payer MEDICARE, SELFPAY ==
[2023-11-05 14:32] LABS: Basophils Absolute Auto 0.1 10^3/uL (0.0-0.1); Basophils Percent Auto 1.2 % (0.2-2.0); Eosinophils Absolute Auto 0.1 10^3/uL (0.0-0.7); Eosinophils Percent Auto 1.4 % (0.9-7.0); Hematocrit 38.8 % (36.0-48.0); Hemoglobin 11.5 g/dL (12.0-16.0); Immature Granulocytes Abs Auto 0.02 10^3/uL (0.00-0.03); Immature Granulocytes Pct Auto 0.3 % (0.0-0.5); Lymphocytes Percent Auto 14.7 % (20.5-60.0); Mean Corpuscular HGB Conc 29.6 g/dL (29.9-35.2); Mean Corpuscular Hemoglobin 27.3 pg (26.7-34.0); Mean Corpuscular Volume 92.2 fL (81.0-99.0); Mean Platelet Volume 10.4 fL (9.5-13.5); Monocytes Absolute Auto 0.4 10^3/uL (0.3-0.8); Monocytes Percent Auto 6.4 % (1.7-12.0); Neutrophils Absolute Auto 4.9 10^3/uL (1.4-6.5); Platelet Count 330 10^3/uL (150-450); Red Blood Count 4.21 10^6/uL (4.20-5.40); Red Cell Distribution Width 14.4 % (11.0-15.0); White Blood Count 6.5 10^3/uL (4.0-11.0)
[2023-11-05 15:28] LABS: Alanine Aminotransferase 23 U/L (14-59); Albumin Globulin Ratio 0.9; Albumin Level 3.3 g/dL (3.4-5.0); Alkaline Phosphatase 120 U/L (46-116); Anion Gap 13.1; Aspartate Amino Transferase 20 U/L (15-37); BUN Creatinine Ratio 13.1; Bilirubin Total 0.7 mg/dL (0.2-1.0); Calcium 8.8 mg/dL (8.5-10.1); Carbon Dioxide 26.9 mmol/L (21.0-32.0); Chloride 106 mmol/L (98-107); Estimated GFR (African America >60 (>=60); Estimated GFR (Non-African Ame >60 (>=60); Globulin 3.8 g/dL; Glucose 88 mg/dL (74-106); Sodium 142 mmol/L (136-145); Total Protein 7.1 g/dL (6.4-8.2)
[2023-11-05 15:56] LABS: Percent Iron Saturation 8.8 %
== END 2023-11-05 14:12 | disposition home or self-care (01) ==
LOC: LAB 14:13
PROVIDERS: PCP Internal Medicine
DX: D50.9 Iron deficiency anemia, unspecified (principal)
CPT/HCPCS: 36415; 80053; 82728; 83540; 83550; 85025

== ENCOUNTER 2023-11-25 12:59 | Outpatient (RCR) | payer MEDICARE, SELFPAY | END 2023-11-26 12:48 | disposition home or self-care (01) | LOC: PT 12:59 | PROVIDERS: PCP Internal Medicine; Visit Provider Internal Medicine | DX: M54.2 Cervicalgia (principal); M25.519 Pain in unspecified shoulder; R29.3 Abnormal posture | CPT/HCPCS: 97110; 97161 ==

== ENCOUNTER 2024-02-04 14:57 | Outpatient (OUT) | payer MEDICARE, SELFPAY ==
[2024-02-04 15:38] LABS: Basophils Absolute Auto 0.1 10^3/uL (0.0-0.1); Basophils Percent Auto 1.1 % (0.2-2.0); Eosinophils Absolute Auto 0.1 10^3/uL (0.0-0.7); Eosinophils Percent Auto 1.6 % (0.9-7.0); Hematocrit 42.5 % (36.0-48.0); Hemoglobin 13.5 g/dL (12.0-16.0); Immature Granulocytes Abs Auto 0.02 10^3/uL (0.00-0.03); Immature Granulocytes Pct Auto 0.3 % (0.0-0.5); Lymphocytes Percent Auto 16.6 % (20.5-60.0); Mean Corpuscular HGB Conc 31.8 g/dL (29.9-35.2); Mean Corpuscular Hemoglobin 28.4 pg (26.7-34.0); Mean Corpuscular Volume 89.5 fL (81.0-99.0); Mean Platelet Volume 9.9 fL (9.5-13.5); Monocytes Absolute Auto 0.5 10^3/uL (0.3-0.8); Monocytes Percent Auto 7.6 % (1.7-12.0); Neutrophils Absolute Auto 4.5 10^3/uL (1.4-6.5); Neutrophils Percent Auto 72.8 % (43.0-75.0); Platelet Count 277 10^3/uL (150-450); Red Blood Count 4.75 10^6/uL (4.20-5.40); White Blood Count 6.2 10^3/uL (4.0-11.0)
[2024-02-04 15:41] LABS: Alanine Aminotransferase 21 U/L (14-59); Albumin Level 3.5 g/dL (3.4-5.0); Alkaline Phosphatase 147 U/L (46-116); Anion Gap 11.3; Aspartate Amino Transferase 12 U/L (15-37); BUN Creatinine Ratio 18.7; Bilirubin Total 0.9 mg/dL (0.2-1.0); Calcium 8.9 mg/dL (8.5-10.1); Carbon Dioxide 25.7 mmol/L (21.0-32.0); Chloride 106 mmol/L (98-107); Estimated GFR (African America >60 (>=60); Estimated GFR (Non-African Ame >60 (>=60); Globulin 3.6 g/dL; Glucose 98 mg/dL (74-106); Sodium 139 mmol/L (136-145); Total Protein 7.1 g/dL (6.4-8.2)
[2024-02-04 16:12] LABS: Percent Iron Saturation 32.2 %
== END 2024-02-04 14:58 | disposition home or self-care (01) ==
LOC: LAB 14:58
PROVIDERS: PCP Internal Medicine; Visit Provider Nurse Practitioner Gerontology
DX: D51.0 Vitamin B12 deficiency anemia due to intrinsic factor deficiency (principal)
CPT/HCPCS: 36415; 80053; 82728; 83540; 83550; 85025

== ENCOUNTER 2024-02-24 10:36 | Outpatient (OUT) | payer MEDICARE, SELFPAY ==
--- NOTE | 2024-02-24 10:44 | MM_ITS ---
Patient Name: JANINE CONDE MR#: [id number] : 1950 Exam Date: 02/24/2024 Ordering Doctor: DR Shalom Hayward D.O. RADIOLOGY REPORT PROCEDURE: MM TOMOSYNTHESIS SCREENING BI COMPARISON: MM TOMOSYNTHESIS SCREENING BI, 02/18/2023. MG MAMM SCREEN 3D MANJINDER CAD, 02/16/2022. INDICATIONS: Screening Calculator Name NCI Breast Cancer Risk Assessment Tool 5 Year Breast Cancer Risk Not Reported. Lifetime Breast Cancer Risk Not Reported. Personal Breast Cancer No Personal Ovarian Cancer No Treatments None Family Cancers None LOCATION: [facility] BREAST COMPOSITION: There are scattered areas of fibroglandular density. FINDINGS: DIAGNOSTIC CATEGORY 2--BENIGN FINDING. NO CHANGE FROM COMPARISON. Scattered benign-appearing nodules are present. Scattered benign-appearing calcifications are present. Scattered benign-appearing lymph nodes are present. RIGHT BREAST: No significant suspicious finding. LEFT BREAST: No significant suspicious finding. RECOMMENDATIONS: ROUTINE MAMMOGRAM AND CLINICAL EVALUATION IN 12 MONTHS. PLEASE NOTE: A NORMAL MAMMOGRAM DOES NOT EXCLUDE THE POSSIBILITY OF BREAST CANCER. A CLINICALLY SUSPICIOUS PALPABLE LUMP SHOULD BE BIOPSIED. Dictated by: Ajith Mann MD on 02/24/2024 at 12:02 Approved by: Ajith Mann MD on 02/24/2024 at 12:04
== END 2024-02-24 10:37 | disposition home or self-care (01) ==
LOC: MAMMO 10:37
PROVIDERS: PCP Internal Medicine; Visit Provider Internal Medicine
DX: Z12.31 Encounter for screening mammogram for malignant neoplasm of breast (principal)
CPT/HCPCS: 77063; 77067

== ENCOUNTER 2024-05-15 14:56 | Outpatient (OUT) | payer MEDICARE, SELFPAY ==
--- OUTSIDE RECORDS SUMMARY | 2024-05-15 15:01 | XMS_ITS | CCD ---
Author Organization [facility] CliniSyn[facility] Care Team Providers Care Salvage Engineer Name Role Phone Dr. Taina Toussaint Attending Unavailable DO Shalom Hayward Primary Care Provider [phone] MD Ricky Benson Referring Provider [phone] MD Taina Toussaint Attending Provider Shalom Hayward Unavailable TING, DR TAINA Thomas Consulting Unavailable BALL, DR MCKEON Primary Care Unavailable TING, DR TAINA Thomas Admitting Unavailable TING, DR TAINA Thomas Attending Unavailable BALL, DR MCKEON Primary Care Unavailable TING, DR TAINA Thomas Admitting Unavailable TING, DR TAINA Thomas Attending Unavailable MISC, DR MAURICIO Consulting Unavailable DAMSCHRODERGERTRUDIS Attending Unavailable DAMSCHRODER, GERTRUDIS Consulting Unavailable DAMSCHGERTRUDIS POWER Admitting Unavailable BALL, DR MCKEON Primary Care Unavailable TING, DR TAINA Thomas Consulting Unavailable TING, DR TAINA Thomas Admitting Unavailable TING, DR TAINA Thomas Attending Unavailable BALL, DR MCKEON Primary Care Unavailable DAMSCHGERTRUDIS POWER Attending Unavailable BALL, DR MCKEON Referring Unavailable [...] Unavailable BALL, DR MCKEON Primary Care Unavailable ZIEBER, DR SEVERINO Ely Consulting Unavailable MISC, DR MAURICIO Attending Unavailable BALL, DR MCKEON Primary Care Unavailable MISC, DR MAURICIO Consulting Unavailable MISC, DR MAURICIO Admitting Unavailable HOY ., DR MIMS Attending Unavailable PLACIDO ., DR MIMS Consulting Unavailable PLACIDO ., DR MIMS Admitting Unavailable MAINOR, DR MCKEON Primary Care Unavailable KATHERINE FIERRO Consulting Unavailable DANISH ARMSTRONG Consulting Unavailable ROBIN HERNANDEZ Consulting Unavailable SARAI LUCAS Consulting Unavailable DO [...] Care Provider MD Ricky Benson Referring Provider [phone] MD Taina Toussaint Attending Provider [phone] Shalom Hayward DO Primary Care Provider DO Shalom Hayward Primary Care Provider MD Ricky Benson Referring Provider MD Taina Toussaint Attending Provider DO Parish Mckeon Attending Provider DO Shalom Hayward Primary Care Provider MD Ricky Benson Referring Provider SONIA Chan Attending Provider MD Ricky Benson Referring Provider SONIA Chan Attending Provider DO Shalom Hayward Primary Care Provider DO Shalom Hayward Primary Care Provider [phone] MD Ricky Benson Referring Provider Unav ailable SONIA Chan Attending Provider Ricky Benson Attending Unavailabl e Ricky Benson Admitting Unavailabl e Shalom Hayward Primary Care Unavailable Parish Mckeon Attending Unavailable Parish Mckeon Admitting Unavailable Shalom Hayward Primary Care Unavailable Ricky Benson Referring Unavailkamran e Shiela Chan Attending Unavail able Shiela Chan Admitting Unavail able Shalom Hayward [facility] Unavailable Medications Current Medications Medication Drug Class(es) Dates Sig (Normalized) Sig (Original) busPIRone hydrochloride 5 mg oral tablet (20 sources) Start: 10-25-2023 take 15 mg by mouth twice daily Buspirone Active 15 MG PO Twice daily October 25, 2023 9:37am Start: 06-22-2021 End: 10-25-2023 take 5 mg by mouth twice daily Buspirone Discontinued 5 MG PO Twice daily June 22, 2021 1:00am October 25, 2023 9:37am Start: 06-20-2019 End: 10-24-2021 take 15 mg by mouth twice daily Buspirone Discontinued 15 MG PO Twice daily June 20, 2019 1:00am October 24, 2021 1:21pm chlordiazePOXIDE hydrochloride 25 mg oral capsule (11 sources) Benzodiazepine Start: 03-09-2024 take 25 mg by mouth twice daily Chlordiazepoxide Hcl Active 25 MG PO Twice daily March 09, 2024 12:00am Start: 10-29-2023 End: 11-12-2023 take 25 mg by mouth twice daily Chlordiazepoxide Hcl Discontinued 25 MG PO Twice daily October 29, 2023 12:00am November 12, 2023 1:01pm sugar-free cholestyramine resin 4000 mg powder for oral suspension (20 sources) Bile Acid Sequestrant Start: 03-10-2024 Cholestyramine-Aspartame (Cholestyramine Light) 4 gram powder in packet Active 0 .ROUTE .COMPLEX 60 March 10, 2024 1:59pm DISSOLVE CONTENTS OF PACKET IN LIQUID AND TAKE BY MOUTH TWICE A DAY Start: 03-10-2024 End: 03-10-2024 Cholestyramine-Aspartame (Ch olestyramine Light) 4 gram powder in packet Discontinued 1 EACH PO Twice daily March 10, 2024 12:00am March 10, 2024 2:00pm Start: 03-05-2023 Cholestyramine Light 4 GM 1 packet Orally twice daily for 30 days Mar, Not-Taking/PRN Start: 03-05-2023 Cholestyramine Light 4 GM 1 packet Orally twice daily for 30 days Mar, Not-Taking Prevalite 4 GM 1 packet Orally Once a day Active Prevalite 4 GM 1 packet Orally Once a day Active clonazePAM 0.5 mg oral tablet (20 sources) Benzodiazepine Start: 06-20-2019 End: 06-23-2019 take 0.5 mg by mouth twice daily Clonazepam Active 0.5 MG PO Twice daily 0 June 23, 2019 1:52pm omeprazole 40 mg delayed release oral capsule (20 sources) Proton Pump Inhibitor Start: 01-16-2024 End: 03-09-2024 take 40 mg by mouth once daily Omeprazole Active 40 MG PO Daily 90 90 March 09, 2024 2:21pm Start: 11-06-2023 take 1 capsule by cox branson in the morning, then take 1 capsule by mouth at bedtime omeprazole (PriLOSEC) 40 mg capsule Take 1 capsule (40 mg total) by mouth in the morning and 1 capsule (40 mg total) before bedtime. 60 capsule 1 11/06/2023 Active Start: 2023 End: 11-06-2023 take 1 capsule by mouth at bedtime omeprazole (PriLOSEC) 40 mg capsule Take 1 capsule (40 mg total) by mouth in the morning and at bedtime. 60 capsule 1 11/04/2023 11/06/2023 Discontinued (Error) Start: 01-01-2020 End: 06-22-2021 take 20 mg by mouth once daily Omeprazole Discontinued 20 MG PO Daily January 01, 2020 12:00am June 22, 2021 7:20am Start: 06-23-2019 End: 10-20-2019 take 40 mg by mouth once daily Omeprazole Discontinued 40 MG PO Daily 60 30 June 23, 2019 1:00am October 20, 2019 2:58pm thiamine 100 mg oral tablet (7 sources) take 1 tablet by mouth every twenty-four hours Vitamin B-1 100 MG 1 tablet Orally Once a day Active traZODone hydrochloride 100 mg oral tablet (20 sources) Serotonin Reuptake Inhibitor Start: 9 take 1 tablet by mouth at bedtime Trazodone Active 1 TAB PO Bedtime June 20, 2019 1:00am Vitamin D (7 sources) Vitamin D Active Completed/Discontinued Medications Medication Drug Class(es) Dates Sig (Normalized) Sig (Original) apixaban 5 mg oral tablet (20 sources) Factor Xa Inhibitor Start: 06-23-2019 End: 10-20-2019 take 2 tablets by mouth twice daily, then take 1 tablet by mouth twice daily Apixaban (Eliquis) 5 mg Tablet Discontinued 10 MG PO Twice daily 16 4 June 23, 2019 1:00am October 20, 2019 2:55pm Start with 10 mg twice daily for 4 days then continue 5 mg twice daily thereafter Start: 06-23-2019 End: 10-20-2019 take 1 tablet by mouth twice daily Apixaban (Eliquis) 5 mg Tablet Discontinued 5 MG PO Twice daily 120 60 June 23, 2019 1:00am October 20, 2019 2:55pm ascorbic acid 1000 mg oral tablet (16 sources) Vitamin C Start: 06-22-2021 End: 01-05-2022 take 1 tablet by mouth once daily Ascorbic Acid (Vitamin C) (Vitamin C) 1,000 mg Tablet Discontinued 1000 MG PO Daily June 22, 2021 1:00am January 05, 2022 11:06am B-12 - up to 1000 mcg (20 [...] to 1 000 mcg Aug, 1000 mcg Bismuth Subcit H-Bjxnxcvdr-Hwv (Pylera) 140-125-125 mg capsule (8 sources) Start: 11-06-2023 End: 01-16-2024 take 3 capsules by mouth once Bismuth Subcit P-Jabjkuhah-Gsn (Pylera) 140-125-125 mg capsule Discontinued 3 CAP PO per package directions 120 November 06, 2023 12:00am January 16, 2024 1:51pm Start: 11-06-2023 take 3 capsules by mouth once Bismuth Subcit T-Vorwjfcao-Jrn (Pylera) 140-125-125 mg capsule Active 3 CAP PO per package directions 120 November 06, 2023 12:00am cloNIDine hydrochloride 0.1 mg oral tablet (20 sources) Central alpha-2 Adrenergic Agonist Start: 05-07-2023 End: 01-16-2024 take 0.1 mg by mouth twice daily Clonidine Hcl Discontinued 0.1 MG PO Twice daily May 15, 2023 12:00am January 16, 2024 1:54pm Start: 05-07-2023 take 1 tablet by deidra every twenty-four hours cloNIDine HCl 0.1 MG 1 tablet Orally Once a day May, Active dicyclomine hydrochloride 10 mg oral capsule (20 sources) Anticholinergic Start: 08-06-2023 End: 11-12-2023 take 10 mg by mouth three times daily Dicyclomine Discontinued 10 MG PO Three times daily October 29, 2023 1:25pm November 12, 2023 1:01pm docusate sodium 100 mg oral capsule (16 sources) Start: 06-23-2019 End: 10-20-2019 take 100 mg by mouth twice daily Docusate Sodium Discontinued 100 MG PO Twice daily 60 June 23, 2019 1:00am October 20, 2019 2:57pm famotidine 40 mg oral tablet (20 sources) Histamine-2 Receptor Antagonist Start: 10-25-2023 End: 10-29-2023 take 40 mg by mouth once daily in the evening Famotidine Discontinued 40 MG PO Every evening October 25, 2023 12:00am October 29, 2023 1:26pm take 1 tablet by mouth in the ev ening Famotidine 40 MG Take 1 tablet by mouth in the evening Active ferrous sulfate 325 mg oral tablet (20 sources) Start: 01-01-2020 End: 06-22-2021 take 325 mg by mouth once daily Ferrous Sulfate Discontinued 325 MG PO Daily January 01, 2020 12:00am June 22, 2021 7:20am Start: 06-23-2019 End: 10-20-2019 Ferrous Sulfate Discontinued 325 MG PO Every 48 hours 30 June 23, 2019 1:00am October 20, 2019 2:58pm lactulose 667 mg/ml oral solution (18 sources) [...] capsules by m outh every six hours ondansetron 4 mg oral tablet (18 sources) [...] a day for 30 days Oct, Not-Taking/PRN pantoprazole 40 mg delayed release oral tablet (16 sources) Proton Pump Inhibitor Start: 05-15-2023 End: 01-16-2024 take 40 mg by mouth twice daily Pantoprazole Discontinued 40 MG PO Twice daily 60 180 May 15, 2023 12:00am January 16, 2024 1:54pm take 1 tablet by deidra every twenty-four hours Pantoprazole Sodium 40 MG 1 tablet Orall y Once a day Active sucralfate 1000 mg oral tablet (9 sources) Aluminum Complex Start: 10-29-2023 End: 01-16-2024 take 1 g by mouth twice daily Sucralfate Discontinued 1 GM PO Twice daily October 29, 2023 12:00am January 16, 2024 1:54pm sulfaSALAzine 500 mg oral tablet (18 sources) Aminosalicylate Start: 01-25-2020 take 2 tablets by mouth every twelve hours sulfaSALAzine 500 MG 2 tablets Orally bid for 30 day(s) Jan, Not-Taking/PRN Start: 01-25-2020 take 2 tablets by mouth every twelve hours triamcinolone acetonide 0.001 mg/mg topical ointment (20 sources) Corticosteroid Start: 02-11-2020 End: 06-22-2021 Triamcinolone Acetonide Discontinued 1 APPLIC TOPICAL Daily February 11, 2020 12:00am June 22, 2021 7:16am Triamcinolone Ac etonide 0.1 % 1 application Externally Twice a day Active Triamcinolone Ac etonide 0.1 % 1 application Externally Twice a day Active 24 hr venlafaxine 37.5 mg extended release oral capsule (20 sources) Serotonin and Norepinephrine Reuptake Inhibitor Start: 06-22-2021 End: 10-24-2021 take 37.5 mg by mouth once daily Venlafaxine Discontinued 37.5 MG PO Daily June 22, 2021 1:00am October 24, 2021 1:22pm Start: 06-20-2019 take 150 mg by mouth once mathew y Venlafaxine Active 150 MG PO Daily June 20, 2019 1:00am Effexor 150mg Ac tive Problems Active Problems [...] Complications of surgical procedures or medical care (16 sources) Blood transfusion reaction; Translations: [Unspecified transfusion reaction, initial encounter] 01-01-2020 Episodic Deficiency and other anemia (20 sources) Iron deficiency anemia due to blood loss; Translations: [Iron deficiency anemia secondary to blood loss (chronic)] 10-26-2023 Chronic Deficiency and other anemia (20 sources) Iron deficiency anemia secondary to blood loss (chronic); Translations: [Iron deficiency anemia secondary to blood loss (chronic)] Onset: 2 Chronic Deficiency and other anemia (9 sources) Anemia due to chronic blood loss; Translations: [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 Deficiency and other anemia (7 sources) Anemia; Translations: [Anemia, unspecified] 01-01-2020 Episodic Deficiency and other anemia (20 sources) Iron deficiency anemia; Translations: [Iron deficiency anemia, unspecified] 01-19-2021 Episodic Deficiency and other anemia (20 sources) Pernicious anemia; Translations: [Vitamin B12 deficiency anemia due to intrinsic factor deficiency] 10-25-2023 Episodic Deficiency and other anemia (12 sources) Vitamin B12 deficiency anemia due to intrinsic factor deficiency; Translations: [Pernicious anemia] Episodic Deficiency and other anemia (1 source) [...] or abscess without bleeding] Chronic Esophageal disorders (7 sources) Gastro-esophageal reflux disease without esophagitis; Translations: [Gastro-esophageal reflux disease with esophagitis] Onset: 3 03-07-2024 Chronic Essential hypertension (20 sources) Essential hypertension; Translations: [Essential (primary) hypertension] Chronic Gastritis and duodenitis (14 sources) Helicobacter-associated gastritis; Translations: [Gastritis, unspecified, without bleeding] 10-26-2023 Episodic Gastroduodenal ulcer (except hemorrhage) (20 sources) Ulcer [...] Encounter for immunization; Translations: [Vaccination given] Episodic Intestinal infection (14 sources) Infection caused by Helicobacter pylori; Translations: [Other specified bacterial intestinal infections] 10-26-2023 Episodic Malaise and fatigue (20 sources) Fatigue; [...] 01-01-2020 Episodic Other aftercare (2 sources) Other [place] [facility] (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; Translations: [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] Onset: 3 Episodic Other aftercare (8 sources) Long-term current use of drug therapy; Translations: [Other [place] [facility] [place] (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] Episodic Other circulatory disease [...] (without mention of hemorrhage)] 08-09-2022 Episodic Other gastrointestinal disorders (10 sources) Vascular ectasia of small intestine; Translations: [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] 11-25-2021 Episodic Other gastrointestinal disorders (8 sources) Gastrointestinal tract problem; Translations: [Other specified symptoms and signs involving the digestive system and abdomen] 11-05-2023 Episodic Other gastrointestinal disorders (4 sources) Other specified symptoms and signs involving the digestive system and abdomen; Translations: [Other abnormal clinical findings] 11-05-2023 Episodic Other injuries and conditions due to [...] Episodic Other nutritional; endocrine; and metabolic disorders (16 sources) Body mass index 40+ - severely obese; Translations: [Morbid (severe) obesity due to excess calories] 01-01-2020 Chronic Other nutritional; endocrine; and metabolic disorders (19 sources) Morbid (severe) obesity due to excess [...] conditions (not mental disorders or infectious disease) (10 sources) Encounter for screening mammogram for malignant neoplasm of breast; Translations: [Encounter for screening for osteoporosis] Onset: 5 Episodic Other skin disorders (7 sources) Skin lesion; Translations: [Disorder of the skin and subcutaneous tissue, unspecified] 02-11-2020 Episodic Other skin disorders (7 sources) Disorder of the skin and subcutaneous tissue, unspecified; Translations: [Unspecified disorder of skin and subcutaneous tissue] 08-09-2022 Episodic Pulmonary heart disease (20 sources) Pulmonary embolism; Translations: [Other pulmonary embolism [...] Resolved: 11-02-2020 Chronic Deficiency and other anemia (16 sources) Iron deficiency anemia, unspecified; Translations: [Iron deficiency anemia, unspecified] Onset: 06-05-2022 08-09-2022 Episodic Deficiency and other anemia (4 sources) Anemia, [...] Test Name Value Interpretation Reference Range Facility Basophils Auto (Bld) [#/Vol] on 02-04-2024 Basophils (Bld) [#/Vol] 0.1 10 3/uL 0.0-0.1 [facility] Basophils/100 WBC Auto (Bld) on 02-04-2024 Basophils/100 WBC (Bld) 1.1 % 0.2-2.0 [facility] Eosinophils/100 WBC Auto (Bl d)on 02-04-2024 Eosinophils/100 WBC (Bld) 1.6 % 0.9-7.0 [facility] Erythrocyte distribution wid th Auto (RBC) [Ratio]on 02-04-2024 Erythrocyte distribution width (RBC) [Ratio] 17.0 % High 11.0-15.0 [facility] Estimated glomerular filtrat ion rate (GFR) non- Americanon 02-04-2024 GFR/1.73 sq M.predicted among non-blacks MDRD (S/P/Bld) [Vol rate/Area] mL/min/{1.73_m2} >=60 [facility] Globulin Calc (S) [Mass/Vol] on 02-04-2024 Globulin (S) [Mass/Vol] 3.6 g/dL [facility] Hematocrit Auto (Bld) [Volum e fraction]on 02-04-2024 Hematocrit (Bld) [Volume fraction] 42.5 % 36.0-48.0 [facility] Hemoglobin [Mass/volume] in Bloodon 02-04-2024 Hemoglobin (Bld) [Mass/Vol] 13.5 g/dL 12.0-16.0 [facility] Iron binding capacity [Mass/ volume] in Serum or Plasmaon 02-04-2024 Iron binding capacity [Mass/Vol] 236.0 ug/dL Low 250.0-450.0 [facility] Iron saturation [Mass Fracti on] in Serum or Plasmaon 02-04-2024 Iron saturation [Mass fraction] 32.2 % [facility] Laboratory - Chemistry and C hemistry - challengeon 02-04-2024 Albumin [Mass/Vol] 3.5 g/dL 3.4-5.0 [facility] ALP [Catalytic activity/Vol] 147 U/L High 46-116 [facility] ALT [Catalytic activity/Vol] 21 U/L 14-59 [facility] AST [Catalytic activity/Vol] 12 U/L Low 15-37 [facility] Bilirubin [Mass/Vol] 0.9 mg/dL 0.2-1.0 [facility] Calcium [Mass/Vol] 8.9 mg/dL 8.5-10.1 [facility] Chloride [Moles/Vol] 106 mmol/L 98-107 [facility] CO2 [Moles/Vol] 25.7 mmol/L 21.0-32.0 [facility] Creatinine [Mass/Vol] 0.91 mg/dL 0.55-1.02 [facility] Ferritin [Mass/Vol] 385.0 ng/mL High 8.0-252.0 [facility] GFR/1.73 sq M.predicted MDRD (S/P/Bld) [Vol rate/Area] mL/min/{1.73_m2} >=60 [facility] Glucose [Mass/Vol] 98 mg/dL 74-106 [facility] Iron [Mass/Vol] 76.0 ug/dL 50.0-170.0 [facility] Potassium [Moles/Vol] 4.0 mmol/L 3.5-5.1 [facility] Protein [Mass/Vol] 7.1 g/dL 6.4-8.2 [facility] Sodium [Moles/Vol] 139 mmol/L 136-145 [facility] Urea nitrogen [Mass/Vol] 17.0 mg/dL 7.0-18.0 [facility] Urea nitrogen/Creatinine [Mass ratio] 18.7 mg/mg [facility] Laboratory - Hematology and Cell countson 02-04-2024 Immature granulocytes/100 WBC (Bld) 0.3 % 0.0-0.5 [facility] Leukocytes [#/volume] correc eugenia for nucleated erythrocytes in Blood by Automated counon 02-04-2024 WBC corrected for nucl RBC Auto (Bld) [#/Vol] 6.2 10 3/uL 4.0-11.0 [facility] Lymphocytes Auto (Bld) [#/Vo l]on 02-04-2024 Lymphocytes (Bld) [#/Vol] 1.0 10 3/uL Low 1.2-3.8 [facility] Lymphocytes/100 WBC Auto (Bl d)on 02-04-2024 Lymphocytes/100 WBC (Bld) 16.6 % Low 20.5-60.0 [facility] MCH Auto (RBC) [Entitic mass ]on 02-04-2024 MCH (RBC) [Entitic mass] 28.4 pg 26.7-34.0 [facility] MCHC Auto (RBC) [Mass/Vol]on 02-04-2024 MCHC (RBC) [Mass/Vol] 31.8 g/dL 29.9-35.2 [facility] MCV Auto (RBC) [Entitic vol] on 02-04-2024 MCV (RBC) [Entitic vol] 89.5 fL 81.0-99.0 [facility] Monocytes Auto (Bld) [#/Vol] on 02-04-2024 Monocytes (Bld) [#/Vol] 0.5 10 3/uL 0.3-0.8 [facility] Monocytes/100 WBC Auto (Bld) on 02-04-2024 Monocytes/100 WBC (Bld) 7.6 % 1.7-12.0 [facility] Neutrophils Auto (Bld) [#/Vo l]on 02-04-2024 Neutrophils (Bld) [#/Vol] 4.5 10 3/uL 1.4-6.5 [facility] Neutrophils/100 WBC Auto (Bl d)on 02-04-2024 Neutrophils/100 WBC (Bld) 72.8 % 43.0-75.0 [facility] No Panel Informationon 02-03 Eosinophils # (Auto) 0.1 10 3/uL 0.0-0.7 [facility] Immature Granulocyte # (Auto) 0.02 10 3/uL 0.00-0.03 [facility] Platelet mean volume Auto (B ld) [Entitic vol]on 02-04-2024 Platelet mean volume (Bld) [Entitic vol] 9.9 fL 9.5-13.5 [facility] Platelets Auto (Bld) [#/Vol] on 02-04-2024 Platelets (Bld) [#/Vol] 277 10 3/uL 150-450 [facility] RBC Auto (Bld) [#/Vol]on RBC (Bld) [#/Vol] 4.75 10 6/uL 4.20-5.40 [facility] Serum or plasma albumin/glob ulin mass ratioon 02-04-2024 Albumin/Globulin [Mass ratio] 1.0 {ratio} [facility] Serum or plasma anion gap de terminationon 02-04-2024 Anion gap [Moles/Vol] 11.3 [facility] Basophils Auto (Bld) [#/Vol] on 11-05-2023 Basophils (Bld) [#/Vol] 0.1 10 3/uL 0.0-0.1 [facility] Basophils/100 WBC Auto (Bld) on 11-05-2023 Basophils/100 WBC (Bld) 1.2 % 0.2-2.0 [facility] Eosinophils/100 WBC Auto (Bl d)on 11-05-2023 Eosinophils/100 WBC (Bld) 1.4 % 0.9-7.0 [facility] Erythrocyte distribution wid th Auto (RBC) [Ratio]on 11-05-2023 Erythrocyte distribution width (RBC) [Ratio] 14.4 % 11.0-15.0 [facility] Estimated glomerular filtrat ion rate (GFR) non- Americanon 11-05-2023 GFR/1.73 sq M.predicted among non-blacks MDRD (S/P/Bld) [Vol rate/Area] mL/min/{1.73_m2} >=60 [facility] Globulin Calc (S) [Mass/Vol] on 11-05-2023 Globulin (S) [Mass/Vol] 3.8 g/dL [facility] Hematocrit Auto (Bld) [Volum e fraction]on 11-05-2023 Hematocrit (Bld) [Volume fraction] 38.8 % 36.0-48.0 [facility] Hemoglobin [Mass/volume] in Bloodon 11-05-2023 Hemoglobin (Bld) [Mass/Vol] 11.5 g/dL 12.0-16.0 [facility] Iron binding capacity [Mass/ volume] in Serum or Plasmaon 11-05-2023 Iron binding capacity [Mass/Vol] 362.0 ug/dL 250.0-450.0 [facility] Iron saturation [Mass Fracti on] in Serum or Plasmaon 11-05-2023 Iron saturation [Mass fraction] 8.8 % [facility] Laboratory - Chemistry and C hemistry - challengeon 11-05-2023 Albumin [Mass/Vol] 3.3 g/dL 3.4-5.0 [facility] ALP [Catalytic activity/Vol] 120 U/L 46-116 [facility] ALT [Catalytic activity/Vol] 23 U/L 14-59 [facility] AST [Catalytic activity/Vol] 20 U/L 15-37 [facility] Bilirubin [Mass/Vol] 0.7 mg/dL 0.2-1.0 [facility] Calcium [Mass/Vol] 8.8 mg/dL 8.5-10.1 [facility] Chloride [Moles/Vol] 106 mmol/L 98-107 [facility] CO2 [Moles/Vol] 26.9 mmol/L 21.0-32.0 [facility] Creatinine [Mass/Vol] 0.84 mg/dL 0.55-1.02 [facility] Ferritin [Mass/Vol] 39.0 ng/mL 8.0-252.0 [facility] GFR/1.73 sq M.predicted MDRD (S/P/Bld) [Vol rate/Area] mL/min/{1.73_m2} >=60 [facility] Glucose [Mass/Vol] 88 mg/dL 74-106 [facility] Iron [Mass/Vol] 32.0 ug/dL 50.0-170.0 [facility] Potassium [Moles/Vol] 4.0 mmol/L 3.5-5.1 [facility] Protein [Mass/Vol] 7.1 g/dL 6.4-8.2 [facility] Sodium [Moles/Vol] 142 mmol/L 136-145 [facility] Urea nitrogen [Mass/Vol] 11.0 mg/dL 7.0-18.0 [facility] Urea nitrogen/Creatinine [Mass ratio] 13.1 mg/mg [facility] Laboratory - Hematology and Cell countson 11-05-2023 Immature granulocytes/100 WBC (Bld) 0.3 % 0.0-0.5 [facility] Leukocytes [#/volume] correc eugenia for nucleated erythrocytes in Blood by Automated counon 11-05-2023 WBC corrected for nucl RBC Auto (Bld) [#/Vol] 6.5 10 3/uL 4.0-11.0 [facility] Lymphocytes Auto (Bld) [#/Vo l]on 11-05-2023 Lymphocytes (Bld) [#/Vol] 1.0 10 3/uL 1.2-3.8 [facility] Lymphocytes/100 WBC Auto (Bl d)on 11-05-2023 Lymphocytes/100 WBC (Bld) 14.7 % 20.5-60.0 [facility] [facility] MCH Auto (RBC) [Entitic mass ]on 11-05-2023 MCH (RBC) [Entitic mass] 27.3 pg 26.7-34.0 [facility] MCHC Auto (RBC) [Mass/Vol]on 11-05-2023 MCHC (RBC) [Mass/Vol] 29.6 g/dL 29.9-35.2 [facility] MCV Auto (RBC) [Entitic vol] on 11-05-2023 MCV (RBC) [Entitic vol] 92.2 fL 81.0-99.0 [facility] Monocytes Auto (Bld) [#/Vol] on 11-05-2023 Monocytes (Bld) [#/Vol] 0.4 10 3/uL 0.3-0.8 [facility] Monocytes/100 WBC Auto (Bld) on 11-05-2023 Monocytes/100 WBC (Bld) 6.4 % 1.7-12.0 [facility] Neutrophils Auto (Bld) [#/Vo l]on 11-05-2023 Neutrophils (Bld) [#/Vol] 4.9 10 3/uL 1.4-6.5 [facility] Neutrophils/100 WBC Auto (Bl d)on 11-05-2023 Neutrophils/100 WBC (Bld) 76.0 % 43.0-75.0 [facility] No Panel Informationon 11-04 Eosinophils # (Auto) 0.1 10 3/uL 0.0-0.7 [facility] Immature Granulocyte # (Auto) 0.02 10 3/uL 0.00-0.03 [facility] Platelet mean volume Auto (B ld) [Entitic vol]on 11-05-2023 Platelet mean volume (Bld) [Entitic vol] 10.4 fL 9.5-13.5 [facility] Platelets Auto (Bld) [#/Vol] on 11-05-2023 Platelets (Bld) [#/Vol] 330 10 3/uL 150-450 [facility] RBC Auto (Bld) [#/Vol]on RBC (Bld) [#/Vol] 4.21 10 6/uL 4.20-5.40 [facility] Serum or plasma albumin/glob ulin mass ratioon 11-05-2023 Albumin/Globulin [Mass ratio] 0.9 {ratio} [facility] Serum or plasma anion gap de terminationon 11-05-2023 Anion gap [Moles/Vol] 13.1 mmol/L [facility] Basophils Auto (Bld) [#/Vol] on 10-22-2023 Basophils (Bld) [#/Vol] 0.1 10 3/uL 0.0-0.1 [facility] Basophils/100 WBC Auto (Bld) on 10-22-2023 Basophils/100 WBC (Bld) 1.1 % 0.2-2.0 [facility] Eosinophils/100 WBC Auto (Bl d)on 10-22-2023 Eosinophils/100 WBC (Bld) 0.6 % 0.9-7.0 [facility] Erythrocyte distribution wid th Auto (RBC) [Ratio]on 10-22-2023 Erythrocyte distribution width (RBC) [Ratio] 15.9 % 11.0-15.0 [facility] Estimated glomerular filtrat ion rate (GFR) non- Americanon 10-22-2023 GFR/1.73 sq M.predicted among non-blacks MDRD (S/P/Bld) [Vol rate/Area] mL/min/{1.73_m2} >=60 [facility] Hematocrit Auto (Bld) [Volum e fraction]on 10-22-2023 Hematocrit (Bld) [Volume fraction] 35.0 % 36.0-48.0 [facility] Hemoglobin [Mass/volume] in Bloodon 10-22-2023 Hemoglobin (Bld) [Mass/Vol] 10.4 g/dL 12.0-16.0 [facility] Laboratory - Chemistry and C hemistry - challengeon 10-22-2023 Calcium [Mass/Vol] 7.8 mg/dL 8.5-10.1 [facility] Chloride [Moles/Vol] 107 mmol/L 98-107 [facility] CO2 [Moles/Vol] 23.6 mmol/L 21.0-32.0 [facility] Creatinine [Mass/Vol] 0.74 mg/dL 0.55-1.02 [facility] GFR/1.73 sq M.predicted MDRD (S/P/Bld) [Vol rate/Area] mL/min/{1.73_m2} >=60 [facility] Glucose [Mass/Vol] 114 mg/dL 74-106 [facility] Potassium [Moles/Vol] 3.6 mmol/L 3.5-5.1 [facility] Sodium [Moles/Vol] 139 mmol/L 136-145 [facility] Urea nitrogen [Mass/Vol] 21.0 mg/dL 7.0-18.0 [facility] Urea nitrogen/Creatinine [Mass ratio] 28.4 mg/mg [facility] Laboratory - Hematology and Cell countson 10-22-2023 Immature granulocytes/100 WBC (Bld) 0.4 % 0.0-0.5 [facility] Leukocytes [#/volume] correc eugenia for nucleated erythrocytes in Blood by Automated counon 10-22-2023 WBC corrected for nucl RBC Auto (Bld) [#/Vol] 8.4 10 3/uL 4.0-11.0 [facility] Lymphocytes Auto (Bld) [#/Vo l]on 10-22-2023 Lymphocytes (Bld) [#/Vol] 1.4 10 3/uL 1.2-3.8 [facility] Lymphocytes/100 WBC Auto (Bl d)on 10-22-2023 Lymphocytes/100 WBC (Bld) 16.2 % 20.5-60.0 [facility] MCH Auto (RBC) [Entitic mass ]on 10-22-2023 MCH (RBC) [Entitic mass] 28.0 pg 26.7-34.0 [facility] MCHC Auto (RBC) [Mass/Vol]on 10-22-2023 MCHC (RBC) [Mass/Vol] 29.7 g/dL 29.9-35.2 [facility] MCV Auto (RBC) [Entitic vol] on 10-22-2023 MCV (RBC) [Entitic vol] 94.3 fL 81.0-99.0 [facility] Monocytes Auto (Bld) [#/Vol] on 10-22-2023 Monocytes (Bld) [#/Vol] 0.9 10 3/uL 0.3-0.8 [facility] Monocytes/100 WBC Auto (Bld) on 10-22-2023 Monocytes/100 WBC (Bld) 10.8 % 1.7-12.0 [facility] Neutrophils Auto (Bld) [#/Vo l]on 10-22-2023 Neutrophils (Bld) [#/Vol] 5.9 10 3/uL 1.4-6.5 [facility] Neutrophils/100 WBC Auto (Bl d)on 10-22-2023 Neutrophils/100 WBC (Bld) 70.9 % 43.0-75.0 [facility] No Panel Informationon 10-21 Eosinophils # (Auto) 0.1 10 3/uL 0.0-0.7 [facility] Immature Granulocyte # (Auto) 0.03 10 3/uL 0.00-0.03 [facility] Platelet mean volume Auto (B ld) [Entitic vol]on 10-22-2023 Platelet mean volume (Bld) [Entitic vol] 11.0 fL 9.5-13.5 [facility] Platelets Auto (Bld) [#/Vol] on 10-22-2023 Platelets (Bld) [#/Vol] 198 10 3/uL 150-450 [facility] RBC Auto (Bld) [#/Vol]on RBC (Bld) [#/Vol] 3.71 10 6/uL 4.20-5.40 [facility] Serum or plasma anion gap de terminationon 10-22-2023 Anion gap [Moles/Vol] 12.0 mmol/L [facility] Activated partial thrombopla stin time (aPTT) in platelet poor plasma by coagulation aon 10-21-2023 aPTT Coag (PPP) [Time] 23.8 s 22.3-36.2 [facility] Automated epithelial cells c ount in urine sediment (number/area)on 10-21-2023 Epithelial cells Auto (Urine sed) [#/Area] RARE #/LPF NONE/RARE [facility] Automated leukocytes count i n urine sediment (number/area)on 10-21-2023 WBC Auto (Urine sed) [#/Area] 2-5 #/HPF 0-2 [facility] Automated urine hyaline cast s count (number/volume)on 10-21-2023 Hyaline casts Auto (U) [#/Vol] RARE [facility] Automated urine specific gra vity by refractometryon 10-21-2023 Specific gravity Refractometry automated (U) [Rel density] 1.025 1.005-1.025 [facility] Basophils Auto (Bld) [#/Vol] on 10-21-2023 Basophils (Bld) [#/Vol] 0.1 10 3/uL 0.0-0.1 [facility] Basophils/100 WBC Auto (Bld) on 10-21-2023 Basophils/100 WBC (Bld) 1.4 % 0.2-2.0 [facility] Bilirubin Auto test strip (U ) [Mass/Vol]on 10-21-2023 Bilirubin (U) [Mass/Vol] Negative NEGATIVE [facility] Casts typing in urine sedime nt by light microscopyon 10-21-2023 Casts LM Nom (Urine sed) SEEN #/LPF NONE SEEN [facility] Color Auto (U)on 10-21-2023 Color (U) LT. YELLOW YELLOW [facility] Eosinophils/100 WBC Auto (Bl d)on 10-21-2023 Eosinophils/100 WBC (Bld) 1.5 % 0.9-7.0 [facility] Erythrocyte distribution wid th Auto (RBC) [Ratio]on 10-21-2023 Erythrocyte distribution width (RBC) [Ratio] 14.2 % 11.0-15.0 [facility] Estimated glomerular filtrat ion rate (GFR) non- Americanon 10-21-2023 GFR/1.73 sq M.predicted among non-blacks MDRD (S/P/Bld) [Vol rate/Area] mL/min/{1.73_m2} >=60 [facility] Globulin Calc (S) [Mass/Vol] on 10-21-2023 Globulin (S) [Mass/Vol] 3.6 g/dL [facility] Hematocrit Auto (Bld) [Volum e fraction]on 10-21-2023 Hematocrit (Bld) [Volume fraction] 34.3 % 36.0-48.0 [facility] Hemoglobin [Mass/volume] in Bloodon 10-21-2023 Hemoglobin (Bld) [Mass/Vol] 9.8 g/dL 12.0-16.0 [facility] INR in Platelet poor plasma by Coagulation assayon 10-21-2023 INR Coag (PPP) [Relative time] 0.94 {INR} [facility] Comment on above: DESIRED INR:2.0-3.0 CONDITIONS NOT LISTED BELOW2.5-3.5 FOR PROSTHETIC HEART VALVE REPLACEMENT2.5-3.5 RECURRENT THROMBOSIS Ketones Auto test strip (U) [Mass/Vol]on 10-21-2023 Ketones (U) [Mass/Vol] mg/dL NEGATIVE [facility] Rich 10-21-2023 L Specimen: [id number] Received: 10/22/23 Status: DEACON Looney Num: [id number] Spec Type: Surgical Subm Dr: Parish Mckeon DO Tissues: A Hernia Sac (HIATAL HERNIA) Procedures: HE/4, Gross/Micro L2, AE1-AE3, H PYLORI, Ki-67 Age/ Patient Sex Location Account Attending Physician Janine Conde 72/F LABELL [id number] Parish Mckeon DO SPEC NUM: [id number] RECD: 10/22/23 STATUS: DEACON LOONEY NUM: [id number] ALVARO: 10/21/[address]: Parish Mckeon DO ENTERED: 10/22/23 [facility] DR: Alexey,Lab SPEC TYPE: Surgical DEPT: CUONG SPARROW ORDERED: HE/4, Gross/Micro L2, AE1-AE3, H PYLORI, Ki-67 ORDERED: HE/4, Gross/Micro L2, AE1-AE3, H PYLORI, Ki-67 Pathological Diagnosis Stomach, Biopsy: Acute Gastritis with epithelial erosion. - H. Pylori Immunostain Is Positive For H. Pylori Organisms. - Focal epithelial atypia is noted. - Follow up is recommended after resolve of the inflammation. - Confirmed with pankeratin and Ki67 immunostain. Clinical Information Large hiatal hernia and erosive gastritis Gross Description Received in formalin labeled with the patient's name, date of and hiatal hernia biopsy are four ferrell tissues ranging from 0.1 cm to 0.3 x 0.2 x 0.2 cm. Entirely submitted in one cassette labeled A1. CPT Codes 29019, [id number] Specimen: [id number] Received: 10/22/23 Status: DEACON Looney Num: [id number] Spec Type: Surgical Subm Dr: Parish Mckeon DO Tissues: A Hernia Sac (HIATAL HERNIA) Procedures: HE/4, Gross/Micro L2, AE1-AE3, H PYLORI, Ki-67 Patient: Janine Conde [id number] (Continued) Signed (signature on file) Zan Bucio MD 10/24/23 172 Normal [facility] Laboratory - Chemistry and C hemistry - challengeon 10-21-2023 Lactate [Moles/Vol] 1.1 mmol/L 0.4-2.0 [facility] Albumin [Mass/Vol] 3.0 g/dL 3.4-5.0 [facility] ALP [Catalytic activity/Vol] 118 U/L 46-116 [facility] ALT [Catalytic activity/Vol] 18 U/L 14-59 [facility] AST [Catalytic activity/Vol] 14 U/L 15-37 [facility] Bilirubin [Mass/Vol] 0.4 mg/dL 0.2-1.0 [facility] Calcium [Mass/Vol] 8.1 mg/dL 8.5-10.1 [facility] Chloride [Moles/Vol] 106 mmol/L 98-107 [facility] CO2 [Moles/Vol] 19.0 mmol/L 21.0-32.0 [facility] Creatinine [Mass/Vol] 0.91 mg/dL 0.55-1.02 [facility] GFR/1.73 sq M.predicted MDRD (S/P/Bld) [Vol rate/Area] mL/min/{1.73_m2} >=60 [facility] Glucose [Mass/Vol] 124 mg/dL 74-106 [facility] Natriuretic peptide B (Bld) [Mass/Vol] 153.0 pg/mL <=900.0 [facility] Potassium [Moles/Vol] 4.0 mmol/L 3.5-5.1 [facility] Protein [Mass/Vol] 6.6 g/dL 6.4-8.2 [facility] Sodium [Moles/Vol] 143 mmol/L 136-145 [facility] Urea nitrogen [Mass/Vol] 28.0 mg/dL 7.0-18.0 [facility] Urea nitrogen/Creatinine [Mass ratio] 30.8 mg/mg [facility] Laboratory - Hematology and Cell countson 10-21-2023 Immature granulocytes/100 WBC (Bld) 0.3 % 0.0-0.5 [facility] Leukocytes [#/volume] correc eugenia for nucleated erythrocytes in Blood by Automated counon 10-21-2023 WBC corrected for nucl RBC Auto (Bld) [#/Vol] 7.9 10 3/uL 4.0-11.0 [facility] Lymphocytes Auto (Bld) [#/Vo l]on 10-21-2023 Lymphocytes (Bld) [#/Vol] 1.8 10 3/uL 1.2-3.8 [facility] Lymphocytes/100 WBC Auto (Bl d)on 10-21-2023 Lymphocytes/100 WBC (Bld) 22.1 % 20.5-60.0 [facility] MCH Auto (RBC) [Entitic mass ]on 10-21-2023 MCH (RBC) [Entitic mass] 27.8 pg 26.7-34.0 [facility] MCHC Auto (RBC) [Mass/Vol]on 10-21-2023 MCHC (RBC) [Mass/Vol] 28.6 g/dL 29.9-35.2 [facility] MCV Auto (RBC) [Entitic vol] on 10-21-2023 MCV (RBC) [Entitic vol] 97.4 fL 81.0-99.0 [facility] Monocytes Auto (Bld) [#/Vol] on 10-21-2023 Monocytes (Bld) [#/Vol] 0.5 10 3/uL 0.3-0.8 [facility] Monocytes/100 WBC Auto (Bld) on 10-21-2023 Monocytes/100 WBC (Bld) 6.3 % 1.7-12.0 [facility] Mucus LM Ql (Urine sed)on Mucus Ql (Urine sed) NONE SEEN NONE SEEN [facility] Neutrophils Auto (Bld) [#/Vo l]on 10-21-2023 Neutrophils (Bld) [#/Vol] 5.4 10 3/uL 1.4-6.5 [facility] Neutrophils/100 WBC Auto (Bl d)on 10-21-2023 Neutrophils/100 WBC (Bld) 68.4 % 43.0-75.0 [facility] No Panel Informationon 10-20 [employer] Helicobacter pylori Urease Test Negative [facility] YES [facility] Eosinophils # (Auto) 0.1 10 3/uL 0.0-0.7 [facility] Immature Granulocyte # (Auto) 0.02 10 3/uL 0.00-0.03 [facility] Troponin I High Sensitivity <4.0 pg/mL 4.0-51.3 [facility] Comment on above: CUT-OFF POINTS HAVE BEEN ESTABLISHED BASED ON THE FOURTHUNIVERSAL DEFINITION OF MYOCARDIAL INFARCTION. THE UPPERREFERENCE LIMIT (URL) OF TROPONIN, DEFINED THE 99THPERCENTILE OF cTnI DISTRIBUTION IN A REFERENCE POPULATION,HAS BEEN CONFIRMED THE DECISION THRESHOLD FOR MIDIAGNOSIS.99TH PERCENTILE = 51.4 PG/MLNOTE: HIGH-SENSITIVITY TROPONIN ASSAY IS NOT INTENDED TO BEUSED IN ISOLATION BUT SHOULD BE INTERPRETED IN CONJUNCTIONWITH OTHER DIAGNOSTIC AND CLINICAL INFORMATION. No Panel InformationOrdered By: Shalom Hayward on 10-21-2023 Blood Culture 2 [facility] Blood Culture 1 [facility] Platelet mean volume Auto (B ld) [Entitic vol]on 10-21-2023 Platelet mean volume (Bld) [Entitic vol] 10.5 fL 9.5-13.5 [facility] Platelets Auto (Bld) [#/Vol] on 10-21-2023 Platelets (Bld) [#/Vol] 328 10 3/uL 150-450 [facility] Protein Auto test strip (U) [Mass/Vol]on 10-21-2023 Protein (U) [Mass/Vol] Negative NEG/TRACE [facility] Prothrombin time (PT)on 10-03 PT Coag (PPP) [Time] 10.0 s 9.0-11.6 [facility] RBC Auto (Bld) [#/Vol]on RBC (Bld) [#/Vol] 3.52 10 6/uL 4.20-5.40 [facility] Serum or plasma albumin/glob ulin mass ratioon 10-21-2023 Albumin/Globulin [Mass ratio] 0.8 {ratio} [facility] Serum or plasma anion gap de terminationon 10-21-2023 Anion gap [Moles/Vol] 22.0 mmol/L Fi [facility] Serum procalcitonin measurem enton 10-21-2023 Procalcitonin [Mass/Vol] ng/mL 0.00-0.50 [facility] Specific gravity Auto test s trip (U) [Rel density]on 10-21-2023 Specific gravity (U) [Rel density] CLEAR CLEAR [facility] Urine bacteria detection by automated methodon 10-21-2023 Bacteria Auto Ql (U) NONE SEEN #/HPF NONE SEEN [facility] Urine glucose measurement by test strip (mass/volume)on 10-21-2023 Glucose Test strip (U) [Mass/Vol] Negative NEGATIVE [facility] Urine hemoglobin detection b y automated test stripon 10-21-2023 Hemoglobin Auto test strip Ql (U) SMALL NEGATIVE [facility] Urine nitrite detection by a utomated test stripon 10-21-2023 Nitrite Auto test strip Ql (U) Negative NEGATIVE [facility] Urine sediment crystal ident ification by light microscopyon 10-21-2023 Crystals LM Nom (Urine sed) None Seen #/HPF None Seen [facility] Urine sediment leukocyte cou nt by microscopy (number/high power field)on 10-21-2023 WBC LM.HPF (Urine sed) [#/Area] 0-2 #/HPF NONE SEEN [facility] Urobilinogen Auto test strip (U) [Mass/Vol]on 10-21-2023 Urobilinogen Qn (U) 0.2 {Carlota'U}/dL 0.2-1.0 [facility] pH Auto test strip (U)on pH (U) 5.0 [pH] 5.0-9.0 [facility] Anisocytosis [Presence] in B lood by Light microscopyOrdered By: Ricky Benson on 05-15-2023 Anisocytosis Ql (Bld) Moderate Normal [facility] Comment on above: Performed By: #### S CAN CBC #### [facility] [address] Automated basophil %Ordered By: Ricky Benson on 05-15-2023 Basophils/100 WBC (Bld) 1.5 % Normal . [facility] Comment on above: Performed By: #### S CAN CBC #### [address] Automated basophil countOrde red By: Ricky Benson on 05-15-2023 Basophils (Bld) [#/Vol] 0.1 10*3/uL Normal 0.0-0.2 [facility] Comment on above: Performed By: #### S CAN CBC #### [address] Automated blood monocyte cou ntOrdered By: Ricky Benson on 05-15-2023 Monocytes (Bld) [#/Vol] 0.3 10*3/uL Normal 0.0-0.8 [facility] Comment on above: Performed By: #### S CAN CBC #### [facility] [address] [place] [address] Automated eosinophil %Ordere d By: Ricky Benson on 05-15-2023 Eosinophils/100 WBC (Bld) 1.8 % Normal . [facility] Comment on above: Performed By: #### S CAN CBC #### [facility] [address] [place] [address] Automated eosinophil countOr dered By: Ricky Benson on 05-15-2023 Eosinophils (Bld) [#/Vol] 0.1 10*3/uL Normal 0.0-0.45 [facility] Comment on above: Performed By: #### S CAN CBC #### [address] Automated monocyte %Ordered By: Ricky Benson on 05-15-2023 Monocytes/100 WBC (Bld) 6.2 % Normal . [facility] Comment on above: Performed By: #### S CAN CBC #### [address] Automated neutrophil %Ordere d By: Ricky Benson on 05-15-2023 Neutrophils/100 WBC (Bld) 73.6 % Normal . [facility] Comment on above: Performed By: #### S CAN CBC #### [address] Erythrocyte distribution wid th [Ratio] by Automated countOrdered By: Ricky Benson on 05-15-2023 Erythrocyte distribution width (RBC) [Ratio] 25.6 % High 11.9-15.3 [facility] Comment on above: Performed By: #### S CAN CBC #### [address] Erythrocytes [#/volume] in B lood by Automated countOrdered By: Ricky Benson on 05-15-2023 RBC (Bld) [#/Vol] 3.09 10*6/uL Low 3.60-5.00 [facility] Comment on above: Performed By: #### S CAN CBC #### [address] Hematocrit [Volume Fraction] of Blood by Automated countOrdered By: Ricky Benson on 05-15-2023 Hematocrit (Bld) [Volume fraction] 28.8 % Low 34.0-46.4 [facility] Comment on above: Performed By: #### S CAN CBC #### [place] [address] [place] Hemoglobin [Mass/volume] in BloodOrdered By: Ricky Benson on 05-15-2023 Hemoglobin (Bld) [Mass/Vol] 8.7 g/dL Low 11.8-15.4 [facility] Comment on above: Performed By: #### S CAN CBC #### [facility] [address] Hypochromia LM Ql (Bld)Order ed By: Ricky Benson on 05-15-2023 Hypochromia Ql (Bld) Moderate [facility] Leukocytes [#/volume] correc eugenia for nucleated erythrocytes in Blood by Automated counOrdered By: Ricky Benson on 05-15-2023 WBC corrected for nucl RBC Auto (Bld) [#/Vol] 4.4 10*3/uL 3.8-11.6 [facility] Leukocytes [#/volume] in Blo od by Automated countOrdered By: Ricky Benson on 05-15-2023 WBC (Bld) [#/Vol] 4.4 10*3/uL Normal 3.8-11.6 [facility] Comment on above: Performed By: #### S CAN CBC #### [facility] [address] [place] [address] Lymphocytes [#/volume] in Bl ood by Automated countOrdered By: Ricky Benson on 05-15-2023 Lymphocytes (Bld) [#/Vol] 0.7 10*3/uL Low 1.00-4.8 [facility] Comment on above: Performed By: #### S CAN CBC #### [facility] [address] [place] [address] [place] Lymphocytes/100 leukocytes i n Blood by Automated countOrdered By: Ricky Benson on 05-15-2023 Lymphocytes/100 WBC (Bld) 16.9 % Normal . [facility] Comment on above: Performed By: #### S CAN CBC #### [place] [address] [place] MCH [Entitic mass] by Automa eugenia countOrdered By: Ricky Benson on 05-15-2023 MCH (RBC) [Entitic mass] 28.1 pg Normal 24.7-34.3 [facility] Comment on above: Performed By: #### S CAN CBC #### [facility] [address] MCHC Auto (RBC) [Mass/Vol]Or dered By: Ricky Benson on 05-15-2023 MCHC (RBC) [Mass/Vol] 30.2 g/dL 32.0-35.0 [facility] MCV [Entitic volume] by Auto mated countOrdered By: Ricky Benson on 05-15-2023 MCV (RBC) [Entitic vol] 93.1 fL Normal 80-100 [facility] Comment on above: Performed By: #### S CAN CBC #### [address] Neutrophils [#/volume] in Bl ood by Automated countOrdered By: Ricky Benson on 05-15-2023 Neutrophils (Bld) [#/Vol] 3.2 10*3/uL Normal 1.8-7.7 [facility] Comment on above: Performed By: #### S CAN CBC #### [address] Nucleated erythrocytes [Pres ence] in Blood by Automated countOrdered By: Ricky Benson on 05-15-2023 Nucleated RBC Auto Ql (Bld) 0.2 /100{WBC} 0-0.5 [facility] Ovalocyte detectionOrdered B y: Ricky Benson on 05-15-2023 Ovalocytes LM Ql (Bld) Slight Fi [facility] Platelet adequacy [Presence] in Blood by Light microscopyOrdered By: Ricky Benson on 05-15-2023 Platelets LM Ql (Bld) Normal Normal [facility] Platelet mean volume [Entiti c volume] in Blood by Automated countOrdered By: Ricky Benson on 05-15-2023 Platelet mean volume (Bld) [Entitic vol] 8.6 fL Normal 6.3-10.7 [facility] Comment on above: Performed By: #### S CAN CBC #### [address] Platelet morphology finding [Identifier] in BloodOrdered By: Ricky Benson on 05-15-2023 Platelet morphology finding Nom (Bld) Normal Normal [facility] Platelets [#/volume] in Bloo d by Automated countOrdered By: Ricky Benson on 05-15-2023 Platelets (Bld) [#/Vol] 231 10*3/uL Normal 150-450 [facility] Comment on above: Performed By: #### S CAN CBC #### [facility] [address] Poikilocytosis [Presence] in Blood by Light microscopyOrdered By: Ricky Benson on 05-15-2023 Poikilocytosis LM Ql (Bld) Moderate [facility] Polychromasia [Presence] in Blood by Light microscopyOrdered By: Ricky Benson on 05-15-2023 Polychromasia LM Ql (Bld) Slight [facility] RBC morphologyOrdered By: Carissa Benson on 05-15-2023 RBC morphology finding Nom (Bld) N/A [facility] Scan and CBCon 05-15-2023 Hypochromasia Moderate Normal [facility] Comment on above: Performed By: #### S CAN CBC #### [facility] [address] Mean Corpuscular HGB Conc 30.2 g/dL Low 32.0-35.0 [facility] [facility] Comment on above: Performed By: #### S CAN CBC #### [address] NRBC% 0.2 /100{WBC} Normal 0-0.5 [facility] Comment on above: Performed By: #### S CAN CBC #### [facility] [address] [place] [address] [place] Ovalocytes Slight Normal [facility] Comment on above: Performed By: #### S CAN CBC #### [facility] [address] Platelet Estimate Normal Normal Normal [facility] Comment on above: Performed By: #### S CAN CBC #### [facility] [address] Platelet Morphology Normal Normal Normal [facility] Comment on above: Result Comment: PERF ORMED BY: [place] [address] PATHOLOGIST DYE AND CHEMICAL COORDINATOR KENNETH GOMEZ M.D. Performed By: #### S CAN CBC #### [address] Poikilocytosis Moderate Normal [facility] Comment on above: Performed By: #### S CAN CBC #### [facility] [address] [place] [address] Polychromasia Slight Normal [facility] Comment on above: Performed By: #### S CAN CBC #### [address] Tear Drop Cells Slight Normal [facility] Comment on above: Performed By: #### S CAN CBC #### [facility] [address] [place] [address] Teardrop cell detectionOrder ed By: Ricky Benson on 05-15-2023 Dacrocytes LM Ql (Bld) Slight [facility] CBC AUTO DIFFon 11-05-2022 BASO # 0.1 103/ul Normal 0.0-0.1 [facility] Comment on above: Performed By: #### C BC #### [facility] [address] [address] [address] Sherry Quezada Basophils/100 WBC (Bld) 1.4 % Normal 0.2-2.0 [facility] Comment on above: Performed By: #### C BC #### [facility] [address] [address] [address] Sherry Quezada EO # 0.1 103/ul Normal 0.0-0.7 [facility] Comment on above: Performed By: #### C BC #### [facility] [address] [address] [address] Sherry Quezada Eosinophils/100 WBC (Bld) 2.5 % Normal 0.9-7.0 [facility] Comment on above: Performed By: #### C BC #### [facility] [address] [place] [address] Dr. Sherry Quezada Erythrocyte distribution width (RBC) [Ratio] 16.5 % Critically high 11.0-15.0 [facility] Comment on above: Performed By: #### C BC #### [facility] [address] [place] [address] Dr. Sherry Quezada Hematocrit (Bld) [Volume fraction] 32.1 % Critically low 36.0-48.0 [facility] Comment on above: Performed By: #### C BC #### [facility] [address] [place] [address] Dr. Sherry Quezada Hemoglobin (Bld) [Mass/Vol] 9.3 g/dL Critically low 12.0-16.0 [facility] Comment on above: Performed By: #### C BC #### [facility] [address] [place] [address] Dr. Sherry Quezada IG # 0.01 10e3/ul Normal 0.00-0.03 [facility] Comment on above: Performed By: #### C BC #### [facility] [address] [place] [address] Dr. Sherry Quezada IG % 0.2 % Normal 0.0-0.5 [facility] Comment on above: Performed By: #### C BC #### [facility] [address] [place] [address] Dr. Sherry Quezada LYMPH # 1.3 103/ul Normal 1.2-3.8 [facility] Comment on above: Performed By: #### C BC #### [facility] [address] [place] [address] Dr. Sherry Quezada Lymphocytes/100 WBC (Bld) 22.2 % Normal 20.5-60.0 [facility] Comment on above: Performed By: #### C BC #### [facility] [address] [place] [address] Dr. Sherry Quezada MANUAL DIFF REQ NO Normal [facility] Comment on above: Performed By: #### C BC #### [facility] [address] [place] [address] Dr. Sherry Quezada MCH (RBC) [Entitic mass] 24.4 pg Critically low 26.7-34.0 [facility] Comment on above: Performed By: #### C BC #### [facility] [address] [place] [address] Dr. Sherry Quezada MCHC (RBC) [Mass/Vol] 29.0 g/dL Critically low 29.9-35.2 [facility] Comment on above: Performed By: #### C BC #### [facility] [address] [place] [address] Dr. Sherry Quezada MCV (RBC) [Entitic vol] 84.3 fL Normal 81.0-99.0 [facility] Comment on above: Performed By: #### C BC #### [facility] [address] [place] [address] Dr. Sherry Quezada MONO # 0.5 103/ul Normal 0.3-0.8 [facility] Comment on above: Performed By: #### C BC #### [facility] [address] [place] [address] Dr. Sherry Quezada Monocytes/100 WBC (Bld) 9.1 % Normal 1.7-12.0 [facility] Comment on above: Performed By: #### C BC #### [facility] [address] [place] [address] Dr. Sherry Quezada NEUT # 3.7 103/ul Normal 1.4-6.5 [facility] Comment on above: Performed By: #### C BC #### [facility] [address] [place] [address] Dr. Sherry Quezada Neutrophils/100 WBC (Bld) 64.6 % Normal 43.0-75.0 [facility] Comment on above: Performed By: #### C BC #### [facility] [address] [place] [address] Dr. Sherry Quezada Platelet mean volume (Bld) [Entitic vol] 11.0 fL Normal 9.5-13.5 [facility] Comment on above: Performed By: #### C BC #### [facility] [address] [address] [address] Sheryr Quezada PLT 261 103/ul Normal 150-450 [facility] Comment on above: Performed By: #### C BC #### [facility] [address] [address] [address] Sherry Quezada RBC 3.81 106/ul Critically low 4.20-5.40 [facility] Comment on above: Performed By: #### C BC #### [facility] [address] [address] [address] Sherry Quezada WBC 5.7 103/ul Normal 4.0-11.0 [facility] Comment on above: Performed By: #### C BC #### [facility] [address] [place] [address] Dr. Sherry Quezada FERRITINon 11-05-2022 Ferritin [Mass/Vol] 10.0 ng/mL Normal 8.0-252.0 [facility] Comment on above: Performed By: #### C BC #### [facility] [address] [place] [address] Dr. Sherry Quezada IRON AND TIBCon 11-05-2022 % SATURATION 5.2 % Normal [facility] Comment on above: Performed By: #### C BC #### [facility] [address] [place] [address] Dr. Sherry Quezada Iron [Mass/Vol] 20.0 ug/dL Critically low 50.0-170.0 [facility] Comment on above: Performed By: #### C BC #### [facility] [address] [place] [address] Dr. Sherry Quezada TIBC DIRECT 388.0 ug/dL Normal 250.0-450.0 [facility] Comment on above: Performed By: #### C BC #### [facility] [address] [place] [address] Dr. Sherry Quezada PRBC LEUKOREDUCEDon 10-10-19 23 ABO and Rh group Nom (Bld) Cross Match Result Compatible Unit Blood Type A Pos Unit Number [id number] Status Information Transfused Product ID Red Blood Cells Product Code [id number] Cross Match Result Compatible Blood Bank Notes CALLED SHAHLA LUCAS ON [place] AT 0905 Unit Blood Type A Pos Unit Number [id number] Status Information Transfused Product ID Red Blood Cells Product Code [id number] Normal [facility] Comment on above: Performed By: #### T SH #### [facility] [address] [place] [address] Dr. Sherry Quezada ABO and Rh group Nom (Bld) Cross Match Result Compatible Unit Blood Type A Pos Unit Number [id number] Status Information Transfused Product ID Red Blood Cells Product Code [id number] Cross Match Result Compatible Unit Blood Type A Pos Unit Number [id number] Status Information Transfused Product ID Red Blood Cells Product Code [id number] Normal [facility] Comment on above: Performed By: #### T SH #### [facility] [address] [place] [address] Dr. Sherry Quezada CBC AUTO DIFFon 10-02-2022 BASO # 0.0 103/ul Normal 0.0-0.1 [facility] Comment on above: Performed By: #### T SH #### [facility] [address] [place] [address] Dr. Sherry Quezada Basophils/100 WBC (Bld) 0.7 % Normal 0.2-2.0 [facility] Comment on above: Performed By: #### T SH #### [facility] [address] [place] [address] Dr. Sherry Quezada EO # 0.2 103/ul Normal 0.0-0.7 [facility] Comment on above: Performed By: #### T SH #### [facility] [address] [place] [address] Dr. Sherry Quezada Eosinophils/100 WBC (Bld) 2.5 % Normal 0.9-7.0 [facility] Comment on above: Performed By: #### T SH #### [facility] [address] [place] [address] Dr. Sherry Quezada Erythrocyte distribution width (RBC) [Ratio] 16.4 % Critically high 11.0-15.0 [facility] Comment on above: Performed By: #### T SH #### [facility] [address] [place] [address] Dr. Sherry Quezada Hematocrit (Bld) [Volume fraction] 31.3 % Critically low 36.0-48.0 [facility] Comment on above: Performed By: #### T SH #### [facility] [address] [place] [address] Dr. Sherry Quezada Hemoglobin (Bld) [Mass/Vol] 9.9 g/dL Critically low 12.0-16.0 [facility] Comment on above: Performed By: #### T SH #### [facility] [address] [place] [address] Dr. Sherry Quezada IG # 0.02 10e3/ul Normal 0.00-0.03 [facility] Comment on above: Performed By: #### T SH #### [facility] [address] [place] [address] Dr. Sherry Quezada IG % 0.3 % Normal 0.0-0.5 [facility] Comment on above: Performed By: #### T SH #### [facility] [address] [place] [address] Dr. Sherry Quezada LYMPH # 1.1 103/ul Critically low 1.2-3.8 [facility] Comment on above: Performed By: #### T SH #### [facility] [address] [place] [address] Dr. Sherry Quezada Lymphocytes/100 WBC (Bld) 17.9 % Critically low 20.5-60.0 [facility] Comment on above: Performed By: #### T SH #### [facility] [address] [place] [address] Dr. Sherry Quezada MANUAL DIFF REQ NO Normal [facility] Comment on above: Performed By: #### T SH #### [facility] [address] [place] [address] Dr. Sherry Quezada MCH (RBC) [Entitic mass] 27.1 pg Normal 26.7-34.0 [facility] Comment on above: Performed By: #### T SH #### [facility] [address] [place] [address] Dr. Sherry Quezada MCHC (RBC) [Mass/Vol] 31.6 g/dL Normal 29.9-35.2 [facility] Comment on above: Performed By: #### T SH #### [facility] [address] [place] [address] Dr. Sherry Quezada MCV (RBC) [Entitic vol] 85.8 fL Normal 81.0-99.0 [facility] Comment on above: Performed By: #### T SH #### [facility] [address] [place] [address] Dr. Sherry Quezada MONO # 0.6 103/ul Normal 0.3-0.8 [facility] Comment on above: Performed By: #### T SH #### [facility] [address] [place] [address] Dr. Sherry Quezada Monocytes/100 WBC (Bld) 9.4 % Normal 1.7-12.0 [facility] Comment on above: Performed By: #### T SH #### [facility] [address] [place] [address] Dr. Sherry Quezada NEUT # 4.1 103/ul Normal 1.4-6.5 [facility] Comment on above: Performed By: #### T SH #### [facility] [address] [place] [address] Dr. Sherry Quezada Neutrophils/100 WBC (Bld) 69.2 % Normal 43.0-75.0 [facility] Comment on above: Performed By: #### T SH #### [facility] [address] [place] [address] Dr. Sherry Quezada Platelet mean volume (Bld) [Entitic vol] 10.7 fL Normal 9.5-13.5 [facility] Comment on above: Performed By: #### T SH #### [facility] [address] [place] [address] Dr. Sherry Quezada PLT 220 103/ul Normal 150-450 [facility] Comment on above: Performed By: #### T SH #### [facility] [address] [place] [address] Dr. Sherry Quezada RBC 3.65 106/ul Critically low 4.20-5.40 [facility] Comment on above: Performed By: #### T SH #### [facility] [address] [place] [address] Dr. Sherry Quezada WBC 5.9 103/ul Normal 4.0-11.0 [facility] Comment on above: Performed By: #### T SH #### [facility] [address] [place] [address] Dr. Sherry Quezada HEMOGLOBIN AND HEMATOCRITon 10-02-2022 Hematocrit (Bld) [Volume fraction] 30.6 % Critically low 36.0-48.0 [facility] Comment on above: Performed By: #### C BC #### [facility] [address] [place] [address] Dr. Sherry Quezada Hemoglobin (Bld) [Mass/Vol] 9.9 g/dL Critically low 12.0-16.0 [facility] Comment on above: Performed By: #### C BC #### [facility] [address] [place] [address] Dr. Sherry Quezada MAGNESIUMon 10-02-2022 Magnesium [Mass/Vol] 1.9 mg/dL Normal 1.8-2.4 [facility] Comment on above: Performed By: #### C VDTBH #### [facility] [address] [place] [address] Dr. Sherry Quezada PROF 14(COMP METB)on 023 Albumin [Mass/Vol] 2.7 g/dL Critically low 3.4-5.0 [facility] Comment on above: Performed By: #### C VDTBH #### [facility] [address] [place] [address] Dr. Sherry Quezada Albumin/Globulin [Mass ratio] 1.0 {ratio} Normal [facility] Comment on above: Performed By: #### C VDTBH #### [facility] [address] [place] [address] Dr. Sherry Quezada ALP [Catalytic activity/Vol] 74 U/L Normal 46-116 [facility] Comment on above: Performed By: #### C VDTBH #### [facility] [address] [address] [address] Sherry Quezada ALT [Catalytic activity/Vol] 13 U/L Critically low 14-59 [facility] Comment on above: Performed By: #### C VDTBH #### [facility] [address] [address] [address] Sherry Quezada Anion gap [Moles/Vol] 9.6 mmol/L Normal [facility] Comment on above: Performed By: #### C VDTBH #### [facility] [address] [address] [address] Sherry Quezada AST [Catalytic activity/Vol] 11 U/L Critically low 15-37 [facility] Comment on above: Performed By: #### C VDTBH #### [facility] [address] [place] [address] Dr. Sherry Quezada Bilirubin [Mass/Vol] 1.2 mg/dL Critically high 0.2-1.0 [facility] Comment on above: Performed By: #### C VDTBH #### [facility] [address] [place] [address] Dr. Sherry Quezada Calcium [Mass/Vol] 8.3 mg/dL Critically low 8.5-10.1 [facility] Comment on above: Performed By: #### C VDTBH #### [facility] [address] [place] [address] Dr. Sherry Quezada Chloride [Moles/Vol] 109 mmol/L Critically high 98-107 [facility] Comment on above: Performed By: #### C VDTBH #### [facility] [address] [place] [address] Dr. Sherry Quezada CO2 [Moles/Vol] 26.4 mmol/L Normal 21.0-32.0 [facility] Comment on above: Performed By: #### C VDTBH #### [facility] [address] [place] [address] Dr. Sherry Quezada Creatinine [Mass/Vol] 0.81 mg/dL Normal 0.55-1.02 [facility] Comment on above: Performed By: #### C VDTBH #### [facility] [address] [place] [address] Dr. Sherry Quezada EGFR-AF RWANDAN >60 Normal >=60 [facility] Comment on above: Performed By: #### C VDTBH #### [facility] [address] [address] [address] Sherry Quezada EGFR-NON AF RWANDAN >60 Normal >=60 [facility] Comment on above: Performed By: #### C VDTBH #### [facility] [address] [place] [address] Dr. Sherry Quezada Globulin (S) [Mass/Vol] 2.7 g/dL Normal [facility] Comment on above: Performed By: #### C VDTBH #### [facility] [address] [place] [address] Dr. Sherry Quezada Glucose [Mass/Vol] 96 mg/dL Normal 74-106 [facility] Comment on above: Performed By: #### C VDTBH #### [facility] [address] [place] [address] Dr. Sherry Quezada Potassium [Moles/Vol] 4.0 mmol/L Normal 3.5-5.1 [facility] Comment on above: Performed By: #### C VDTBH #### [facility] [address] [place] [address] Dr. Sherry Quezada Protein [Mass/Vol] 5.4 g/dL Critically low 6.4-8.2 [facility] Comment on above: Performed By: #### C VDTBH #### [facility] [address] [place] [address] Dr. Sherry Quezada Sodium [Moles/Vol] 141 mmol/L Normal 136-145 [facility] Comment on above: Performed By: #### C VDTBH #### [facility] [address] [place] [address] Dr. Sherry Quezada Urea nitrogen [Mass/Vol] 16.0 mg/dL Normal 7.0-18.0 [facility] Comment on above: Performed By: #### C VDTBH #### [facility] [address] [place] [address] Dr. Sherry Quezada Urea nitrogen/Creatinine [Mass ratio] 19.8 mg/mg Normal [facility] Comment on above: Performed By: #### C VDTBH #### [facility] [address] [place] [address] Dr. Sherry Quezada ER URINE PROFILEon 3 Bilirubin Ql (U) Negative Normal NEGATIVE [facility] Comment on above: Performed By: #### T SH #### [facility] [address] [place] [address] Dr. Sherry Quezada Clarity (U) CLEAR Normal CLEAR [facility] Comment on above: Performed By: #### T SH #### [facility] [address] [place] [address] Dr. Sherry Quezada Color (U) LT. YELLOW Normal YELLOW [facility] Comment on above: Performed By: #### T SH #### [facility] [address] [place] [address] Dr. Sherry Quezada ERUD A micrscopic examination will be performed if indicated. Normal [facility] Comment on above: Performed By: #### T SH #### [facility] [address] [place] [address] Dr. Sherry Quezada Glucose Ql (U) Negative Normal NEGATIVE [facility] Comment on above: Performed By: #### T SH #### [facility] [address] [place] [address] Dr. Sherry Quezada Hemoglobin Ql (U) Negative Normal NEGATIVE [facility] Comment on above: Performed By: #### T SH #### [facility] [address] [place] [address] Dr. Sherry Quezada Ketones Ql (U) Negative Normal NEGATIVE [facility] Comment on above: Performed By: #### T SH #### [facility] [address] [place] [address] Dr. Sherry Quezada LEUKOCYTES Negative Normal NEGATIVE [facility] Comment on above: Performed By: #### T SH #### [facility] [address] [place] [address] Dr. Sherry Quezada Nitrite Ql (U) Negative Normal NEGATIVE [facility] Comment on above: Performed By: #### T SH #### [facility] [address] [place] [address] Dr. Sherry Quezada pH (U) 5.5 [pH] Normal 5-9 [facility] Comment on above: Performed By: #### T SH #### [facility] [address] [place] [address] Dr. Sherry Quezada SPEC GRAVITY <=1.005 Abnormal 1.005-<=1.025 [facility] Comment on above: Performed By: #### T SH #### [facility] [address] [place] [address] Dr. Sherry Quezada UA PROTEIN Negative Normal NEGATIVE/ TRACE [facility] Comment on above: Performed By: #### T SH #### [facility] [address] [place] [address] Dr. Sherry Quezada UR MICRO IND NOT INDICATED Normal [facility] Comment on above: Performed By: #### T SH #### [facility] [address] [place] [address] Dr. Sherry Quezada Urobilinogen Qn (U) 0.2 {Carlota'U}/dL Normal 0.2 - 1. 0 [facility] Comment on above: Performed By: #### T SH #### [facility] [address] [place] [address] Dr. Sherry Quezada HEMOGLOBIN AND HEMATOCRITon 10-01-2022 Hematocrit (Bld) [Volume fraction] 31.5 % Critically low 36.0-48.0 [facility] Comment on above: Performed By: #### C BC #### [facility] [address] [place] [address] Dr. Sherry Quezada Hemoglobin (Bld) [Mass/Vol] 10.1 g/dL Critically low 12.0-16.0 [facility] Comment on above: Performed By: #### C BC #### [facility] [address] [place] [address] Dr. Sherry Quezada Hematocrit (Bld) [Volume fraction] 27.0 % Critically low 36.0-48.0 [facility] Comment on above: Performed By: #### C BC #### [facility] [address] [place] [address] Dr. Sherry Quezada Hemoglobin (Bld) [Mass/Vol] 8.5 g/dL Critically low 12.0-16.0 [facility] Comment on above: Performed By: #### C BC #### [facility] [address] [place] [address] Dr. Sherry Quezada Hematocrit (Bld) [Volume fraction] 24.7 % Critically low 36.0-48.0 [facility] Comment on above: Performed By: #### C BC #### [facility] [address] [place] [address] Dr. Sherry Quezada Hemoglobin (Bld) [Mass/Vol] 7.6 g/dL Critically low 12.0-16.0 [facility] Comment on above: Performed By: #### C BC #### [facility] [address] [place] [address] Dr. Sherry Quezada MAGNESIUMon 10-01-2022 Magnesium [Mass/Vol] 1.7 mg/dL Critically low 1.8-2.4 [facility] Comment on above: Performed By: #### C VDTBH #### [facility] [address] [place] [address] Dr. Sherry Quezada PROF 14(COMP METB)on 023 Albumin [Mass/Vol] 2.6 g/dL Critically low 3.4-5.0 [facility] Comment on above: Performed By: #### C VDTBH #### [facility] [address] [place] [address] Dr. Sherry Quezada Albumin/Globulin [Mass ratio] 1.0 {ratio} Normal [facility] Comment on above: Performed By: #### C VDTBH #### [facility] [address] [place] [address] Dr. Sherry Quezada ALP [Catalytic activity/Vol] 81 U/L Normal 46-116 [facility] Comment on above: Performed By: #### C VDTBH #### [facility] [address] [place] [address] Dr. Sherry Quezada ALT [Catalytic activity/Vol] 12 U/L Critically low 14-59 [facility] Comment on above: Performed By: #### C VDTBH #### [facility] [address] [place] [address] Dr. Sherry Quezada Anion gap [Moles/Vol] 9.3 mmol/L Normal [facility] Comment on above: Performed By: #### C VDTBH #### [facility] [address] [place] [address] Dr. Sherry Quezada AST [Catalytic activity/Vol] 14 U/L Critically low 15-37 [facility] Comment on above: Performed By: #### C VDTBH #### [facility] [address] [place] [address] Dr. Sherry Quezada Bilirubin [Mass/Vol] 1.7 mg/dL Critically high 0.2-1.0 [facility] Comment on above: Performed By: #### C VDTBH #### [facility] [address] [place] [address] Dr. Sherry Quezada Calcium [Mass/Vol] 7.8 mg/dL Critically low 8.5-10.1 [facility] Comment on above: Performed By: #### C VDTBH #### [facility] [address] [place] [address] Dr. Sherry Quezada Chloride [Moles/Vol] 108 mmol/L Critically high 98-107 [facility] Comment on above: Performed By: #### C VDTBH #### [facility] [address] [place] [address] Dr. Sherry Quezada CO2 [Moles/Vol] 26.8 mmol/L Normal 21.0-32.0 [facility] Comment on above: Performed By: #### C VDTBH #### [facility] [address] [place] [address] Dr. Sherry Quezada Creatinine [Mass/Vol] 0.74 mg/dL Normal 0.55-1.02 [facility] Comment on above: Performed By: #### C VDTBH #### [facility] [address] [place] [address] Dr. Sherry Quezada EGFR-AF RWANDAN >60 Normal >=60 [facility] Comment on above: Performed By: #### C VDTBH #### [facility] [address] [place] [address] Dr. Sherry Quezada EGFR-NON AF RWANDAN >60 Normal >=60 [facility] Comment on above: Performed By: #### C VDTBH #### [facility] [address] [place] [address] Dr. Sherry Quezada Globulin (S) [Mass/Vol] 2.6 g/dL Normal [facility] Comment on above: Performed By: #### C VDTBH #### [facility] [address] [place] [address] Dr. Sherry Quezada Glucose [Mass/Vol] 88 mg/dL Normal 74-106 [facility] Comment on above: Performed By: #### C VDTBH #### [facility] [address] [place] [address] Dr. Sherry Quezada Potassium [Moles/Vol] 4.1 mmol/L Normal 3.5-5.1 [facility] Comment on above: Performed By: #### C VDTBH #### [facility] [address] [place] [address] Dr. Sherry Quezada Protein [Mass/Vol] 5.2 g/dL Critically low 6.4-8.2 [facility] Comment on above: Performed By: #### C VDTBH #### [facility] [address] [place] [address] Dr. Sherry Quezada Sodium [Moles/Vol] 140 mmol/L Normal 136-145 [facility] Comment on above: Performed By: #### C VDTBH #### [facility] [address] [place] [address] Dr. Sherry Quezada Urea nitrogen [Mass/Vol] 13.0 mg/dL Normal 7.0-18.0 [facility] Comment on above: Performed By: #### C VDTBH #### [facility] [address] [place] [address] Dr. Sherry Quezada Urea nitrogen/Creatinine [Mass ratio] 17.6 mg/mg Normal [facility] Comment on above: Performed By: #### C VDTBH #### [facility] [address] [place] [address] Dr. Sherry Quezada CBC AUTO DIFFon 09-30-2022 BASO # 0.0 103/ul Normal 0.0-0.1 [facility] Comment on above: Performed By: #### C BC #### [facility] [address] [place] [address] Dr. Sherry Quezada Basophils/100 WBC (Bld) 0.5 % Normal 0.2-2.0 [facility] Comment on above: Performed By: #### C BC #### [facility] [address] [place] [address] Dr. Sherry Quezada EO # 0.0 103/ul Normal 0.0-0.7 [facility] Comment on above: Performed By: #### C BC #### [facility] [address] [place] [address] Dr. Sherry Quezada Eosinophils/100 WBC (Bld) 0.2 % Critically low 0.9-7.0 [facility] Comment on above: Performed By: #### C BC #### [facility] [address] [place] [address] Dr. Sherry Quezada Erythrocyte distribution width (RBC) [Ratio] 17.5 % Critically high 11.0-15.0 [facility] Comment on above: Performed By: #### C BC #### [facility] [address] [place] [address] Dr. Sherry Quezada Hematocrit (Bld) [Volume fraction] 21.5 % Critically low 36.0-48.0 [facility] Comment on above: Performed By: #### C BC #### [facility] [address] [place] [address] Dr. Sherry Quezada Hemoglobin (Bld) [Mass/Vol] 6.3 g/dL Critically low 12.0-16.0 [facility] Comment on above: Performed By: #### C BC #### [facility] [address] [place] [address] Dr. Sherry Quezada IG # 0.06 10e3/ul Critically high 0.00-0.03 [facility] Comment on above: Performed By: #### C BC #### [facility] [address] [place] [address] Dr. Sherry Quezada IG % 0.7 % Critically high 0.0-0.5 [facility] Comment on above: Performed By: #### C BC #### [facility] [address] [place] [address] Dr. Sherry Quezada LYMPH # 1.0 103/ul Critically low 1.2-3.8 [facility] Comment on above: Performed By: #### C BC #### [facility] [address] [place] [address] Dr. Sherry Quezada Lymphocytes/100 WBC (Bld) 11.3 % Critically low 20.5-60.0 [facility] Comment on above: Performed By: #### C BC #### [facility] [address] [place] [address] Dr. Sherry Quezada MANUAL DIFF REQ NO Normal [facility] Comment on above: Performed By: #### C BC #### [facility] [address] [place] [address] Dr. Sherry Quezada MCH (RBC) [Entitic mass] 24.6 pg Critically low 26.7-34.0 [facility] Comment on above: Performed By: #### C BC #### [facility] [address] [place] [address] Dr. Sherry Quezada MCHC (RBC) [Mass/Vol] 29.3 g/dL Critically low 29.9-35.2 [facility] Comment on above: Performed By: #### C BC #### [facility] [address] [place] [address] Dr. Sherry Quezada MCV (RBC) [Entitic vol] 84.0 fL Normal 81.0-99.0 [facility] Comment on above: Performed By: #### C BC #### [facility] [address] [place] [address] Dr. Sherry Quezada MONO # 0.5 103/ul Normal 0.3-0.8 [facility] Comment on above: Performed By: #### C BC #### [facility] [address] [place] [address] Dr. Sherry Quezada Monocytes/100 WBC (Bld) 5.4 % Normal 1.7-12.0 [facility] Comment on above: Performed By: #### C BC #### [facility] [address] [place] [address] Dr. Sherry Quezada NEUT # 7.2 103/ul Critically high 1.4-6.5 [facility] Comment on above: Performed By: #### C BC #### [facility] [address] [place] [address] Dr. Sherry Quezada Neutrophils/100 WBC (Bld) 81.9 % Critically high 43.0-75.0 [facility] Comment on above: Performed By: #### C BC #### [facility] [address] [place] [address] Dr. Sherry Quezada Platelet mean volume (Bld) [Entitic vol] 11.2 fL Normal 9.5-13.5 [facility] Comment on above: Performed By: #### C BC #### [facility] [address] [place] [address] Dr. Sherry Quezada PLT 325 103/ul Normal 150-450 [facility] Comment on above: Performed By: #### C BC #### [facility] [address] [place] [address] Dr. Sherry Quezada RBC 2.56 106/ul Critically low 4.20-5.40 [facility] Comment on above: Performed By: #### C BC #### [facility] [address] [place] [address] Dr. Sherry Quezada WBC 8.8 103/ul Normal 4.0-11.0 [facility] Comment on above: Performed By: #### C #### [facility] [address] [address] ABD/PELV W CONon 09-30-19 CT ABD/PELV W CON EXAMINATION: CT ABD/PELV [...] SARAI LUCAS Date: 2022-09-30 20:50 Normal [facility] Covid-19 PCR (CVDTB)on 09-06 SARS-CoV-2 (COVID-19) RNA MELITON+probe Ql (Unsp spec) Not detected Normal NOT DETECTED [facility] Comment on above: Result Comment: When diagnostic [...] for this test is supported by the [employer]'s declaration that [...] longer be used). Performed By: #### C VDTB #### [facility] [address] [place] [address] Dr. Sherry MAYNARD AND TIBCon 09-30-2022 % SATURATION 25.8 % Normal [facility] Comment on above: Performed By: #### C BC #### [facility] [address] [place] [address] Dr. Sherry Quezada Iron [Mass/Vol] 99.0 ug/dL Normal 50.0-170.0 [facility] Comment on above: Performed By: #### C BC #### [facility] [address] [place] [address] Dr. Sherry Quezada TIBC DIRECT 384.0 ug/dL Normal 250.0-450.0 [facility] Comment on above: Performed By: #### C BC #### [facility] [address] [place] [address] Dr. Sherry Quezada OCC BLD IMMUNO SCREENon 09-06 OCCULT BLOOD Positive Abnormal NEGATIVE [facility] Comment on above: Performed By: #### C BC #### [facility] [address] [place] [address] Dr. Sherry Quezada PROF CHEM 8 (BAS METB)on Anion gap [Moles/Vol] 17.6 mmol/L Normal [facility] Comment on above: Performed By: #### C VDTBH #### [facility] [address] [address] [address] Sherry Quezada Calcium [Mass/Vol] 8.7 mg/dL Normal 8.5-10.1 [facility] Comment on above: Performed By: #### C VDTBH #### [facility] [address] [place] [address] Dr. Sherry Quezada Chloride [Moles/Vol] 104 mmol/L Normal 98-107 [facility] Comment on above: Performed By: #### C VDTBH #### [facility] [address] [address] [address] Sherry Quezada CO2 [Moles/Vol] 20.3 mmol/L Critically low 21.0-32.0 [facility] Comment on above: Performed By: #### C VDTBH #### [facility] [address] [place] [address] Dr. Sherry Quezada Creatinine [Mass/Vol] 0.91 mg/dL Normal 0.55-1.02 [facility] Comment on above: Performed By: #### C VDTBH #### [facility] [address] [place] [address] Dr. Sherry Quezada EGFR-AF RWANDAN >60 Normal >=60 [facility] Comment on above: Performed By: #### C VDTBH #### [facility] [address] [place] [address] Dr. Sherry Quezada EGFR-NON AF RWANDAN >60 Normal >=60 [facility] Comment on above: Performed By: #### C VDTBH #### [facility] [address] [address] [address] Sherry Quezada Glucose [Mass/Vol] 124 mg/dL Critically high 74-106 [facility] Comment on above: Performed By: #### C VDTBH #### [facility] [address] [address] [address] Sherry Quezada Potassium [Moles/Vol] 3.9 mmol/L Normal 3.5-5.1 [facility] Comment on above: Performed By: #### C VDTBH #### [facility] [address] [place] [address] Dr. Sherry Quezada Sodium [Moles/Vol] 138 mmol/L Normal 136-145 [facility] Comment on above: Performed By: #### C VDTBH #### [facility] [address] [place] [address] Dr. Sherry Quezada Urea nitrogen [Mass/Vol] 15.0 mg/dL Normal 7.0-18.0 [facility] Comment on above: Performed By: #### C VDTBH #### [facility] [address] [place] [address] Dr. Sherry Quezada Urea nitrogen/Creatinine [Mass ratio] 16.5 mg/mg Normal [facility] Comment on above: Performed By: #### C VDTBH #### [facility] [address] [place] [address] Dr. Sherry Quezada TYPE AND SCREENon 09-30-2022 TYPE AND SCREEN Negative Normal [facility] Comment on above: Performed By: #### T SH #### [facility] [address] [place] [address] Dr. Sherry Quezada CBC AUTO DIFFon 08-06-2022 BASO # 0.1 103/ul Normal 0.0-0.1 [facility] Comment on above: Performed By: #### C BC #### [facility] [address] [place] [address] Dr. Sherry Quezada Basophils/100 WBC (Bld) 1.1 % Normal 0.2-2.0 [facility] Comment on above: Performed By: #### C BC #### [facility] [address] [place] [address] Dr. Sherry Quezada EO # 0.1 103/ul Normal 0.0-0.7 [facility] Comment on above: Performed By: #### C BC #### [facility] [address] [place] [address] Dr. Sherry Quezada Eosinophils/100 WBC (Bld) 1.6 % Normal 0.9-7.0 [facility] Comment on above: Performed By: #### C BC #### [facility] [address] [place] [address] Dr. Sherry Quezada Erythrocyte distribution width (RBC) [Ratio] 14.9 % Normal 11.0-15.0 [facility] Comment on above: Performed By: #### C BC #### [facility] [address] [place] [address] Dr. Sherry Quezada Hematocrit (Bld) [Volume fraction] 35.2 % Critically low 36.0-48.0 [facility] Comment on above: Performed By: #### C BC #### [facility] [address] [place] [address] Dr. Sherry Quezada Hemoglobin (Bld) [Mass/Vol] 10.7 g/dL Critically low 12.0-16.0 [facility] Comment on above: Performed By: #### C BC #### [facility] [address] [place] [address] Dr. Sherry Quezada IG # 0.03 10e3/ul Normal 0.00-0.03 [facility] Comment on above: Performed By: #### C BC #### [facility] [address] [place] [address] Dr. Sherry Quezada IG % 0.4 % Normal 0.0-0.5 [facility] Comment on above: Performed By: #### C BC #### [facility] [address] [place] [address] Dr. Sherry Quezada LYMPH # 1.6 103/ul Normal 1.2-3.8 [facility] Comment on above: Performed By: #### C BC #### [facility] [address] [place] [address] Dr. Sherry Quezada Lymphocytes/100 WBC (Bld) 19.5 % Critically low 20.5-60.0 [facility] Comment on above: Performed By: #### C BC #### [facility] [address] [place] [address] Dr. Sherry Quezada MANUAL DIFF REQ NO Normal [facility] Comment on above: Performed By: #### C BC #### [facility] [address] [place] [address] Dr. Sherry Quezada MCH (RBC) [Entitic mass] 28.6 pg Normal 26.7-34.0 [facility] Comment on above: Performed By: #### C BC #### [facility] [address] [place] [address] Dr. Sherry Quezada MCHC (RBC) [Mass/Vol] 30.4 g/dL Normal 29.9-35.2 [facility] Comment on above: Performed By: #### C BC #### [facility] [address] [place] [address] Dr. Sherry Quezada MCV (RBC) [Entitic vol] 94.1 fL Normal 81.0-99.0 [facility] Comment on above: Performed By: #### C BC #### [facility] [address] [place] [address] Dr. Sherry Quezada MONO # 0.6 103/ul Normal 0.3-0.8 [facility] Comment on above: Performed By: #### C BC #### [facility] [address] [place] [address] Dr. Sherry Quezada Monocytes/100 WBC (Bld) 6.7 % Normal 1.7-12.0 [facility] Comment on above: Performed By: #### C BC #### [facility] [address] [place] [address] Dr. Sherry Quezada NEUT # 5.9 103/ul Normal 1.4-6.5 [facility] Comment on above: Performed By: #### C BC #### [facility] [address] [place] [address] Dr. Sherry Quezada Neutrophils/100 WBC (Bld) 70.7 % Normal 43.0-75.0 [facility] Comment on above: Performed By: #### C BC #### [facility] [address] [place] [address] Dr. Sherry Quezada Platelet mean volume (Bld) [Entitic vol] 9.7 fL Normal 9.5-13.5 [facility] Comment on above: Performed By: #### C BC #### [facility] [address] [address] [address] Sherry Quezada PLT 327 103/ul Normal 150-450 [facility] Comment on above: Performed By: #### C BC #### [facility] [address] [place] [address] Dr. Sherry Quezada RBC 3.74 106/ul Critically low 4.20-5.40 [facility] Comment on above: Performed By: #### C BC #### [facility] [address] [place] [address] Dr. Sherry Quezada WBC 8.3 103/ul Normal 4.0-11.0 [facility] Comment on above: Performed By: #### C BC #### [facility] [address] [place] [address] Dr. Sherry Quezada FERRITINon 08-06-2022 Ferritin [Mass/Vol] 34.0 ng/mL Normal 8.0-252.0 [facility] Comment on above: Performed By: #### C BC #### [facility] [address] [place] [address] Dr. Sherry Quezada IRON AND TIBCon 08-06-2022 % SATURATION 5.9 % Normal [facility] Comment on above: Performed By: #### C BC #### [facility] [address] [place] [address] Dr. Sherry Quezada Iron [Mass/Vol] 20.0 ug/dL Critically low 50.0-170.0 [facility] Comment on above: Performed By: #### C BC #### [facility] [address] [place] [address] Dr. Sherry Quezada TIBC DIRECT 338.0 ug/dL Normal 250.0-450.0 [facility] Comment on above: Performed By: #### C BC #### [facility] [address] [place] [address] Dr. Sherry Quezada CBC AUTO DIFFon 06-04-2022 BASO # 0.1 103/ul Normal 0.0-0.1 [facility] Comment on above: Performed By: #### T SH #### [facility] [address] [place] [address] Dr. Sherry Quezada Basophils/100 WBC (Bld) 1.0 % Normal 0.2-2.0 [facility] Comment on above: Performed By: #### T SH #### [facility] [address] [place] [address] Dr. Sherry Quezada EO # 0.1 103/ul Normal 0.0-0.7 [facility] Comment on above: Performed By: #### T SH #### [facility] [address] [place] [address] Dr. Sherry Quezada Eosinophils/100 WBC (Bld) 2.1 % Normal 0.9-7.0 [facility] Comment on above: Performed By: #### T SH #### [facility] [address] [place] [address] Dr. Sherry Quezada Erythrocyte distribution width (RBC) [Ratio] 19.3 % Critically high 11.0-15.0 [facility] Comment on above: Performed By: #### T SH #### [facility] [address] [place] [address] Dr. Sherry Quezada Hematocrit (Bld) [Volume fraction] 38.4 % Normal 36.0-48.0 [facility] Comment on above: Performed By: #### T SH #### [facility] [address] [place] [address] Dr. Sherry Quezada Hemoglobin (Bld) [Mass/Vol] 11.7 g/dL Critically low 12.0-16.0 [facility] Comment on above: Performed By: #### T SH #### [facility] [address] [place] [address] Dr. Sherry Quezada IG # 0.03 10e3/ul Normal 0.00-0.03 [facility] Comment on above: Performed By: #### T SH #### [facility] [address] [place] [address] Dr. Sherry Quezada IG % 0.5 % Normal 0.0-0.5 [facility] Comment on above: Performed By: #### T SH #### [facility] [address] [place] [address] Dr. Sherry Quezada LYMPH # 1.2 103/ul Normal 1.2-3.8 [facility] Comment on above: Performed By: #### T SH #### [facility] [address] [place] [address] Dr. Sherry Quezada Lymphocytes/100 WBC (Bld) 21.1 % Normal 20.5-60.0 [facility] Comment on above: Performed By: #### T SH #### [facility] [address] [place] [address] Dr. Sherry Quezada MANUAL DIFF REQ NO Normal [facility] Comment on above: Performed By: #### T SH #### [facility] [address] [place] [address] Dr. Sherry Quezada MCH (RBC) [Entitic mass] 27.0 pg Normal 26.7-34.0 [facility] Comment on above: Performed By: #### T SH #### [facility] [address] [place] [address] Dr. Sherry Quezada MCHC (RBC) [Mass/Vol] 30.5 g/dL Normal 29.9-35.2 [facility] Comment on above: Performed By: #### T SH #### [facility] [address] [place] [address] Dr. Sherry Quezada MCV (RBC) [Entitic vol] 88.5 fL Normal 81.0-99.0 [facility] Comment on above: Performed By: #### T SH #### [facility] [address] [place] [address] Dr. Sherry Quezada MONO # 0.4 103/ul Normal 0.3-0.8 [facility] Comment on above: Performed By: #### T SH #### [facility] [address] [place] [address] Dr. Sherry Quezada Monocytes/100 WBC (Bld) 7.5 % Normal 1.7-12.0 [facility] Comment on above: Performed By: #### T SH #### [facility] [address] [place] [address] Dr. Sherry Quezada NEUT # 3.9 103/ul Normal 1.4-6.5 [facility] Comment on above: Performed By: #### T SH #### [facility] [address] [place] [address] Dr. Sherry Quezada Neutrophils/100 WBC (Bld) 67.8 % Normal 43.0-75.0 [facility] Comment on above: Performed By: #### T SH #### [facility] [address] [place] [address] Dr. Sherry Quezada Platelet mean volume (Bld) [Entitic vol] 10.2 fL Normal 9.5-13.5 [facility] Comment on above: Performed By: #### T SH #### [facility] [address] [place] [address] Dr. Sherry Quezada PLT 324 103/ul Normal 150-450 [facility] Comment on above: Performed By: #### T SH #### [facility] [address] [place] [address] Dr. Sherry Quezada RBC 4.34 106/ul Normal 4.20-5.40 [facility] Comment on above: Performed By: #### T SH #### [facility] [address] [place] [address] Dr. Sherry Quezada WBC 5.8 103/ul Normal 4.0-11.0 [facility] Comment on above: Performed By: #### T SH #### [facility] [address] [place] [address] Dr. Sherry Quezada FERRITINon 06-04-2022 Ferritin [Mass/Vol] 48.0 ng/mL Normal 8.0-252.0 [facility] Comment on above: Performed By: #### C BC #### [facility] [address] [place] [address] Dr. Sherry Quezada GLYCOHEMOGLOBIN A1Con 2021 ADA RECOMMENDATION SEE BELOW Normal [facility] Comment on above: Result Comment: ADA RECOMMENDED LIMIT 4.0 - 6.0 ADA THERAPEUTIC TARGET < 7.0 ACTION SUGGESTED > 7.0 Performed By: #### T SH #### [facility] [address] [address] [address] Sherry Quezada Glucose [Mass/Vol] 77 mg/dL Normal [facility] Comment on above: Performed By: #### T SH #### [facility] [address] [address] [address] Sherry Quezada HbA1c (Bld) [Mass fraction] 4.3 % Critically low 4.5-6.2 [facility] Comment on above: Performed By: #### T SH #### [facility] [address] [address] [address] Sherry Quezada IRON AND TIBCon 06-04-2022 % SATURATION 13.4 % Normal [facility] Comment on above: Performed By: #### C BC #### [facility] [address] [place] [address] Dr. Sherry Quezada Iron [Mass/Vol] 42.0 ug/dL Critically low 50.0-170.0 [facility] Comment on above: Performed By: #### C BC #### [facility] [address] [place] [address] Dr. Sherry Quezada TIBC DIRECT 314.0 ug/dL Normal 250.0-450.0 [facility] Comment on above: Performed By: #### C BC #### [facility] [address] [place] [address] Dr. Sherry Quezada PROF 14(COMP METB)on 022 Albumin [Mass/Vol] 3.4 g/dL Normal 3.4-5.0 [facility] Comment on above: Performed By: #### C VDTBH #### [facility] [address] [address] [address] Sherry Quezada Albumin/Globulin [Mass ratio] 0.9 {ratio} Normal [facility] Comment on above: Performed By: #### C VDTBH #### [facility] [address] [place] [address] Dr. Sherry Quezada ALP [Catalytic activity/Vol] 97 U/L Normal 46-116 [facility] Comment on above: Performed By: #### C VDTBH #### [facility] [address] [address] [address] Sherry Quezada ALT [Catalytic activity/Vol] 19 U/L Normal 14-59 [facility] Comment on above: Performed By: #### C VDTBH #### [facility] [address] [address] [address] Sherry Quezada Anion gap [Moles/Vol] 12.4 mmol/L Normal [facility] Comment on above: Performed By: #### C VDTBH #### [facility] [address] [address] [address] Sherry Quezada AST [Catalytic activity/Vol] 12 U/L Critically low 15-37 [facility] Comment on above: Performed By: #### C VDTBH #### [facility] [address] [address] [address] Sherry Quezada Bilirubin [Mass/Vol] 0.6 mg/dL Normal 0.2-1.0 [facility] Comment on above: Performed By: #### C VDTBH #### [facility] [address] [address] [address] Sherry Quezada Calcium [Mass/Vol] 8.9 mg/dL Normal 8.5-10.1 [facility] Comment on above: Performed By: #### C VDTBH #### [facility] [address] [address] [address] Sherry Quezada Chloride [Moles/Vol] 106 mmol/L Normal 98-107 [facility] Comment on above: Performed By: #### C VDTBH #### [facility] [address] [address] [address] Sherry Quezada CO2 [Moles/Vol] 24.6 mmol/L Normal 21.0-32.0 [facility] Comment on above: Performed By: #### C VDTBH #### [facility] [address] [address] [address] Sherry Quezada Creatinine [Mass/Vol] 0.88 mg/dL Normal 0.55-1.02 [facility] Comment on above: Performed By: #### C VDTBH #### [facility] [address] [address] [address] Sherry Quezada EGFR-AF RWANDAN >60 Normal >=60 [facility] Comment on above: Performed By: #### C VDTBH #### [facility] [address] [address] [address] Sherry Quezada EGFR-NON AF RWANDAN >60 Normal >=60 [facility] Comment on above: Performed By: #### C VDTBH #### [facility] [address] [address] [address] Sherry Quezada Globulin (S) [Mass/Vol] 3.6 g/dL Normal [facility] Comment on above: Performed By: #### C VDTBH #### [facility] [address] [place] [address] Dr. Sherry Quezada Glucose [Mass/Vol] 99 mg/dL Normal 74-106 [facility] Comment on above: Performed By: #### C VDTBH #### [facility] [address] [place] [address] Dr. Sherry Quezada Potassium [Moles/Vol] 4.0 mmol/L Normal 3.5-5.1 [facility] Comment on above: Performed By: #### C VDTBH #### [facility] [address] [place] [address] Dr. Sherry Quezada Protein [Mass/Vol] 7.0 g/dL Normal 6.4-8.2 [facility] Comment on above: Performed By: #### C VDTBH #### [facility] [address] [place] [address] Dr. Sherry Quezada Sodium [Moles/Vol] 139 mmol/L Normal 136-145 [facility] Comment on above: Performed By: #### C VDTBH #### [facility] [address] [address] [address] Sherry Quezada Urea nitrogen [Mass/Vol] 13.0 mg/dL Normal 7.0-18.0 [facility] Comment on above: Performed By: #### C VDTBH #### [facility] [address] [place] [address] Dr. Sherry Quezada Urea nitrogen/Creatinine [Mass ratio] 14.8 mg/mg Normal [facility] Comment on above: Performed By: #### C VDTBH #### [facility] [address] [place] [address] Dr. Sherry Quezada T3, TOTAL (TRIIODOTHYRONINE) on 04-04-2022 T3, TOTAL 95 ng/dL Normal 71-180 [facility] Comment on above: Performed By: #### T 3TOTAL #### [facility] [address] [place] [address] Dr. Sherry Quezada CBC AUTO DIFFon 04-03-2022 BASO # 0.1 103/ul Normal 0.0-0.1 [facility] Comment on above: Performed By: #### C BC #### [facility] [address] [place] [address] Dr. Sherry Quezada Basophils/100 WBC (Bld) 1.3 % Normal 0.2-2.0 [facility] Comment on above: Performed By: #### C BC #### [facility] [address] [place] [address] Dr. Sherry Quezada EO # 0.1 103/ul Normal 0.0-0.7 [facility] Comment on above: Performed By: #### C BC #### [facility] [address] [place] [address] Dr. Sherry Quezdaa Eosinophils/100 WBC (Bld) 1.3 % Normal 0.9-7.0 [facility] Comment on above: Performed By: #### C BC #### [facility] [address] [place] [address] Dr. Sherry Quezada Erythrocyte distribution width (RBC) [Ratio] 19.4 % Critically high 11.0-15.0 [facility] Comment on above: Performed By: #### C BC #### [facility] [address] [place] [address] Dr. Sherry Quezada Hematocrit (Bld) [Volume fraction] 33.2 % Critically low 36.0-48.0 [facility] Comment on above: Performed By: #### C BC #### [facility] [address] [place] [address] Dr. Sherry Quezada Hemoglobin (Bld) [Mass/Vol] 9.7 g/dL Critically low 12.0-16.0 [facility] Comment on above: Performed By: #### C BC #### [facility] [address] [place] [address] Dr. Sherry Quezada IG # 0.02 10e3/ul Normal 0.00-0.03 [facility] Comment on above: Performed By: #### C BC #### [facility] [address] [place] [address] Dr. Sherry Quezada IG % 0.3 % Normal 0.0-0.5 [facility] Comment on above: Performed By: #### C BC #### [facility] [address] [place] [address] Dr. Sherry Quezada LYMPH # 0.9 103/ul Critically low 1.2-3.8 [facility] Comment on above: Performed By: #### C BC #### [facility] [address] [place] [address] Dr. Sherry Quezada Lymphocytes/100 WBC (Bld) 14.7 % Critically low 20.5-60.0 [facility] Comment on above: Performed By: #### C BC #### [facility] [address] [place] [address] Dr. Sherry Quezada MANUAL DIFF REQ NO Normal [facility] Comment on above: Performed By: #### C BC #### [facility] [address] [place] [address] Dr. Sherry Quezada MCH (RBC) [Entitic mass] 24.9 pg Critically low 26.7-34.0 [facility] Comment on above: Performed By: #### C BC #### [facility] [address] [place] [address] Dr. Sherry Quezada MCHC (RBC) [Mass/Vol] 29.2 g/dL Critically low 29.9-35.2 [facility] Comment on above: Performed By: #### C BC #### [facility] [address] [address] [address] Sherry Quezada MCV (RBC) [Entitic vol] 85.1 fL Normal 81.0-99.0 [facility] Comment on above: Performed By: #### C BC #### [facility] [address] [address] [address] Sherry Quezada MONO # 0.5 103/ul Normal 0.3-0.8 [facility] Comment on above: Performed By: #### C BC #### [facility] [address] [address] [address] Sherry Quezada Monocytes/100 WBC (Bld) 7.8 % Normal 1.7-12.0 [facility] Comment on above: Performed By: #### C BC #### [facility] [address] [place] [address] Dr. Sherry Quezada NEUT # 4.6 103/ul Normal 1.4-6.5 [facility] Comment on above: Performed By: #### C BC #### [facility] [address] [place] [address] Dr. Sherry Quezada Neutrophils/100 WBC (Bld) 74.6 % Normal 43.0-75.0 [facility] Comment on above: Performed By: #### C BC #### [facility] [address] [address] [address] Sherry Quezada Platelet mean volume (Bld) [Entitic vol] 10.1 fL Normal 9.5-13.5 [facility] Comment on above: Performed By: #### C BC #### [facility] [address] [address] [address] Sherry Quezada PLT 302 103/ul Normal 150-450 [facility] Comment on above: Performed By: #### C BC #### [facility] [address] [address] [address] Sherry Quezada RBC 3.90 106/ul Critically low 4.20-5.40 [facility] Comment on above: Performed By: #### C BC #### [facility] [address] [place] [address] Dr. Sherry Quezada WBC 6.1 103/ul Normal 4.0-11.0 [facility] Comment on above: Performed By: #### C BC #### [facility] [address] [place] [address] Dr. Sherry Quezada FERRITINon 04-03-2022 Ferritin [Mass/Vol] 11.0 ng/mL Normal 8.0-252.0 [facility] Comment on above: Performed By: #### F T4, FERR, FETIBC #### [facility] [address] [place] [address] Dr. Sherry Quezada FREE T4on 04-03-2022 Free T4 [Mass/Vol] 1.06 ng/dL Normal 0.76-1.46 [facility] Comment on above: Performed By: #### F T4, FERR, FETIBC #### [facility] [address] [place] [address] Dr. Sherry Quezada IRON AND TIBCon 04-03-2022 % SATURATION 6.0 % Normal [facility] Comment on above: Performed By: #### F T4, FERR, FETIBC #### [facility] [address] [place] [address] Dr. Sherry Quezada Iron [Mass/Vol] 21.0 ug/dL Critically low 50.0-170.0 [facility] Comment on above: Performed By: #### F T4, FERR, FETIBC #### [facility] [address] [place] [address] Dr. Sherry Quezada TIBC DIRECT 352.0 ug/dL Normal 250.0-450.0 [facility] Comment on above: Performed By: #### F T4, FERR, FETIBC #### [facility] [address] [place] [address] Dr. Sherry Quezada TSHon 04-03-2022 TSH 0.880 uIU/mL Normal 0.358-3.740 [facility] Comment on above: Performed By: #### T SH #### [facility] [address] [address] [address] Sherry Quezada MG MAMM SCREEN 3D MANJINDER CADon 02-16-2022 MG MAMM SCREEN 3D MANJINDER CAD Patient: JANINE CONDE Exam Date: 02/16/2022 : 1950 Gender:F Ordering : DR SHALOM HAYWARD D.O. Admission #: [id number] Family : Order #: [id number] CLICK HERE TO VIEW EXAM RADIOLOGY REPORT [...] Treatments None Family Cancers None LOCATION: [facility] BREAST COMPOSITION: Scattered areas fibroglandular density. FINDINGS: [...] Freeman M.D. on 02/19/2022 at 12:46 Normal [facility] CBC AUTO DIFFon 02-13-2022 BASO # 0.1 103/ul Normal 0.0-0.1 [facility] Comment on above: Performed By: #### C BC #### [facility] [address] [address] [address] Sherry Quezada Basophils/100 WBC (Bld) 1.5 % Normal 0.2-2.0 [facility] Comment on above: Performed By: #### C BC #### [facility] [address] [place] [address] Dr. Sherry Quezada EO # 0.1 103/ul Normal 0.0-0.7 [facility] Comment on above: Performed By: #### C BC #### [facility] [address] [place] [address] Dr. Sherry Quezada Eosinophils/100 WBC (Bld) 1.0 % Normal 0.9-7.0 [facility] Comment on above: Performed By: #### C BC #### [facility] [address] [place] [address] Dr. Sherry Quezada Hematocrit (Bld) [Volume fraction] 35.3 % Critically low 36.0-48.0 [facility] Comment on above: Performed By: #### C BC #### [facility] [address] [place] [address] Dr. Sherry Quezada Hemoglobin (Bld) [Mass/Vol] 10.5 g/dL Critically low 12.0-16.0 [facility] Comment on above: Performed By: #### C BC #### [facility] [address] [place] [address] Dr. Sherry Quezada IG # 0.01 10e3/ul Normal 0.00-0.03 [facility] Comment on above: Performed By: #### C BC #### [facility] [address] [place] [address] Dr. Sherry Quezada IG % 0.2 % Normal 0.0-0.5 [facility] Comment on above: Performed By: #### C BC #### [facility] [address] [place] [address] Dr. Sherry Quezada LYMPH # 1.0 103/ul Critically low 1.2-3.8 [facility] Comment on above: Performed By: #### C BC #### [facility] [address] [place] [address] Dr. Sherry Quezada Lymphocytes/100 WBC (Bld) 16.7 % Critically low 20.5-60.0 [facility] Comment on above: Performed By: #### C BC #### [facility] [address] [place] [address] Dr. Sherry Quezada MANUAL DIFF REQ NO Normal [facility] Comment on above: Performed By: #### C BC #### [facility] [address] [place] [address] Dr. Sherry Quezada MCH (RBC) [Entitic mass] 27.8 pg Normal 26.7-34.0 [facility] Comment on above: Performed By: #### C BC #### [facility] [address] [place] [address] Dr. Sherry Quezada MCHC (RBC) [Mass/Vol] 29.7 g/dL Critically low 29.9-35.2 [facility] Comment on above: Result Comment: 1+ h ypochromasia Performed By: #### C BC #### [facility] [address] [place] [address] Dr. Sherry Quezada MCV (RBC) [Entitic vol] 93.4 fL Normal 81.0-99.0 [facility] Comment on above: Performed By: #### C BC #### [facility] [address] [place] [address] Dr. Sherry Quezada MONO # 0.4 103/ul Normal 0.3-0.8 [facility] Comment on above: Performed By: #### C BC #### [facility] [address] [place] [address] Dr. Sherry Quezada Monocytes/100 WBC (Bld) 6.7 % Normal 1.7-12.0 [facility] Comment on above: Performed By: #### C BC #### [facility] [address] [place] [address] Dr. Sherry Quezada NEUT # 4.5 103/ul Normal 1.4-6.5 [facility] Comment on above: Performed By: #### C BC #### [facility] [address] [place] [address] Dr. Sherry Quezada Neutrophils/100 WBC (Bld) 73.9 % Normal 43.0-75.0 [facility] Comment on above: Performed By: #### C BC #### [facility] [address] [place], [place] [id number] Dr. Sherry Quezada Platelet mean volume (Bld) [Entitic vol] 9.8 fL Normal 9.5-13.5 [facility] Comment on above: Performed By: #### C BC #### [facility] [address] [place] [address] Dr. Sherry Quezada PLT 305 103/ul Normal 150-450 [facility] Comment on above: Performed By: #### C BC #### [facility] [address] [place] [address] Dr. Sherry Quezada RBC 3.78 106/ul Critically low 4.20-5.40 [facility] Comment on above: Performed By: #### C BC #### [facility] [address] [place] [address] Dr. Sherry Quezada WBC 6.1 103/ul Normal 4.0-11.0 [facility] Comment on above: Performed By: #### C BC #### [facility] [address] [place] [address] Dr. Sherry Quezada FERRITINon 02-13-2022 Ferritin [Mass/Vol] 75.0 ng/mL Normal 8.0-252.0 [facility] Comment on above: Performed By: #### F ETIBC, FERR #### [facility] [address] [place] [address] Dr. Sherry Quezada IRON AND TIBCon 02-13-2022 % SATURATION 9.0 % Normal [facility] Comment on above: Performed By: #### T SH #### [facility] [address] [place] [address] Dr. Sherry Quezada Iron [Mass/Vol] 34.0 ug/dL Critically low 50.0-170.0 [facility] Comment on above: Performed By: #### T SH #### [facility] [address] [place] [address] Dr. Sherry Quezada TIBC DIRECT 376.0 ug/dL Normal 250.0-450.0 [facility] Comment on above: Performed By: #### T SH #### [facility] [address] [place] [address] Dr. Sherry Quezada PROF 14(COMP METB)on 022 Albumin [Mass/Vol] 3.3 g/dL Critically low 3.4-5.0 [facility] Comment on above: Performed By: #### C BC #### [facility] [address] [place] [address] Dr. Sherry Quezada Albumin/Globulin [Mass ratio] 0.9 {ratio} Normal [facility] Comment on above: Performed By: #### C BC #### [facility] [address] [place] [address] Dr. Sherry Quezada ALP [Catalytic activity/Vol] 92 U/L Normal 46-116 [facility] Comment on above: Performed By: #### C BC #### [facility] [address] [place] [address] Dr. Sherry Quezada ALT [Catalytic activity/Vol] 19 U/L Normal 14-59 [facility] Comment on above: Performed By: #### C BC #### [facility] [address] [place] [address] Dr. Sherry Quezada Anion gap [Moles/Vol] 14.2 mmol/L Normal [facility] Comment on above: Performed By: #### C BC #### [facility] [address] [place] [address] Dr. Sherry Quezada AST [Catalytic activity/Vol] 13 U/L Critically low 15-37 [facility] Comment on above: Performed By: #### C BC #### [facility] [address] [place] [address] Dr. Sherry Quezada Bilirubin [Mass/Vol] 0.6 mg/dL Normal 0.2-1.0 [facility] Comment on above: Performed By: #### C BC #### [facility] [address] [place] [address] Dr. Sherry Quezada Calcium [Mass/Vol] 8.8 mg/dL Normal 8.5-10.1 [facility] Comment on above: Performed By: #### C BC #### [facility] [address] [place] [address] Dr. Sherry Quezada Chloride [Moles/Vol] 105 mmol/L Normal 98-107 [facility] Comment on above: Performed By: #### C BC #### [facility] [address] [address] [address] Sherry Quezada CO2 [Moles/Vol] 24.5 mmol/L Normal 21.0-32.0 [facility] Comment on above: Performed By: #### C BC #### [facility] [address] [address] [address] Sherry Quezada Creatinine [Mass/Vol] 0.97 mg/dL Normal 0.55-1.02 [facility] Comment on above: Performed By: #### C BC #### [facility] [address] [place] [address] Dr. Sherry Quezada EGFR-AF RWANDAN >60 Normal >=60 [facility] Comment on above: Performed By: #### C BC #### [facility] [address] [place] [address] Dr. Sherry Quezada EGFR-NON AF RWANDAN 56 mL/min/1.73m2 Critically low >=60 [facility] Comment on above: Performed By: #### C BC #### [facility] [address] [place] [address] Dr. Sherry Quezada Globulin (S) [Mass/Vol] 3.6 g/dL Normal [facility] Comment on above: Performed By: #### C BC #### [facility] [address] [place] [address] Dr. Sherry Quezada Glucose [Mass/Vol] 110 mg/dL Critically high 74-106 [facility] Comment on above: Performed By: #### C BC #### [facility] [address] [address] [address] Sherry Quezada Potassium [Moles/Vol] 3.7 mmol/L Normal 3.5-5.1 [facility] Comment on above: Performed By: #### C BC #### [facility] [address] [place] [address] Dr. Sherry Quezada Protein [Mass/Vol] 6.9 g/dL Normal 6.4-8.2 [facility] Comment on above: Performed By: #### C BC #### [facility] [address] [place] [address] Dr. Sherry Quezada Sodium [Moles/Vol] 140 mmol/L Normal 136-145 [facility] Comment on above: Performed By: #### C BC #### [facility] [address] [place] [address] Dr. Sherry Quezada Urea nitrogen [Mass/Vol] 19.0 mg/dL Critically high 7.0-18.0 [facility] Comment on above: Performed By: #### C BC #### [facility] [address] [place] [address] Dr. Sherry Quezada Urea nitrogen/Creatinine [Mass ratio] 19.6 mg/mg Normal [facility] Comment on above: Performed By: #### C BC #### [facility] [address] [place] [address] Dr. Sherry Quezada CBC AUTO DIFFon 01-03-2022 BASO # 0.1 103/ul Normal 0.0-0.1 [facility] Comment on above: Performed By: #### C VDTBH #### [facility] [address] [place] [address] Dr. Sherry Quezada Basophils/100 WBC (Bld) 1.7 % Normal 0.2-2.0 [facility] Comment on above: Performed By: #### C VDTBH #### [facility] [address] [place] [address] Dr. Sherry Quezada EO # 0.1 103/ul Normal 0.0-0.7 [facility] Comment on above: Performed By: #### C VDTBH #### [facility] [address] [place] [address] Dr. Sherry Quezada Eosinophils/100 WBC (Bld) 2.1 % Normal 0.9-7.0 [facility] Comment on above: Performed By: #### C VDTBH #### [facility] [address] [place] [address] Dr. Sherry Quezada Erythrocyte distribution width (RBC) [Ratio] 18.9 % Critically high 11.0-15.0 [facility] Comment on above: Performed By: #### C VDTBH #### [facility] [address] [place] [address] Dr. Sherry Quezada Hematocrit (Bld) [Volume fraction] 32.7 % Critically low 36.0-48.0 [facility] Comment on above: Performed By: #### C VDTBH #### [facility] [address] [place] [address] Dr. Sherry Quezada Hemoglobin (Bld) [Mass/Vol] 9.1 g/dL Critically low 12.0-16.0 [facility] Comment on above: Performed By: #### C VDTBH #### [facility] [address] [place] [address] Dr. Sherry Quezada IG # 0.02 10e3/ul Normal 0.00-0.03 [facility] Comment on above: Performed By: #### C VDTBH #### [facility] [address] [place] [address] Dr. Sherry Quezada IG % 0.3 % Normal 0.0-0.5 [facility] Comment on above: Performed By: #### C VDTBH #### [facility] [address] [place] [address] Dr. Sherry Quezada LYMPH # 1.4 103/ul Normal 1.2-3.8 [facility] Comment on above: Performed By: #### C VDTBH #### [facility] [address] [place] [address] Dr. Sherry Quezada Lymphocytes/100 WBC (Bld) 23.8 % Normal 20.5-60.0 [facility] Comment on above: Performed By: #### C VDTBH #### [facility] [address] [place] [address] Dr. Sherry Quezada MANUAL DIFF REQ NO Normal [facility] Comment on above: Performed By: #### C VDTBH #### [facility] [address] [place] [address] Dr. Sherry Quezada MCH (RBC) [Entitic mass] 24.1 pg Critically low 26.7-34.0 [facility] Comment on above: Performed By: #### C VDTBH #### [facility] [address] [place] [address] Dr. Sherry Quezada MCHC (RBC) [Mass/Vol] 27.8 g/dL Critically low 29.9-35.2 [facility] Comment on above: Performed By: #### C VDTBH #### [facility] [address] [place] [address] Dr. Sherry Quezada MCV (RBC) [Entitic vol] 86.7 fL Normal 81.0-99.0 [facility] Comment on above: Performed By: #### C VDTBH #### [facility] [address] [place] [address] Dr. Sherry Quezada MONO # 0.5 103/ul Normal 0.3-0.8 [facility] Comment on above: Performed By: #### C VDTBH #### [facility] [address] [place] [address] Dr. Sherry Quezada Monocytes/100 WBC (Bld) 8.7 % Normal 1.7-12.0 [facility] Comment on above: Performed By: #### C VDTBH #### [facility] [address] [place] [address] Dr. Sherry Quezada NEUT # 3.6 103/ul Normal 1.4-6.5 [facility] Comment on above: Performed By: #### C VDTBH #### [facility] [address] [place] [address] Dr. Sherry Quezada Neutrophils/100 WBC (Bld) 63.4 % Normal 43.0-75.0 [facility] Comment on above: Performed By: #### C VDTBH #### [facility] [address] [place] [address] Dr. Sherry Quezada Platelet mean volume (Bld) [Entitic vol] 10.3 fL Normal 9.5-13.5 [facility] Comment on above: Performed By: #### C VDTBH #### [facility] [address] [address] [address] Sherry Quezada PLT 288 103/ul Normal 150-450 [facility] Comment on above: Performed By: #### C VDTBH #### [facility] [address] [address] [address] Sherry Quezada RBC 3.77 106/ul Critically low 4.20-5.40 [facility] Comment on above: Performed By: #### C VDTBH #### [facility] [address] [address] [address] Sherry uQezada WBC 5.8 103/ul Normal 4.0-11.0 [facility] Comment on above: Performed By: #### C VDTBH #### [facility] [address] [place] [address] Dr. Sherry Quezada FERRITINon 01-03-2022 Ferritin [Mass/Vol] 23.0 ng/mL Normal 8.0-252.0 [facility] Comment on above: Performed By: #### C BC #### [facility] [address] [place] [address] Dr. Sherry Quezada IRON AND TIBCon 01-03-2022 % SATURATION 5.0 % Normal [facility] Comment on above: Performed By: #### C BC #### [facility] [address] [place] [address] Dr. Sherry Quezada Iron [Mass/Vol] 19.0 ug/dL Critically low 50.0-170.0 [facility] Comment on above: Performed By: #### C BC #### [facility] [address] [place] [address] Dr. Sherry Quezada TIBC DIRECT 377.0 ug/dL Normal 250.0-450.0 [facility] Comment on above: Performed By: #### C BC #### [facility] [address] [place] [address] Dr. Sherry Quezada CBC AUTO DIFFon 11-22-2021 BASO # 0.1 103/ul Normal 0.0-0.1 [facility] Comment on above: Performed By: #### C VDTBH #### [facility] [address] [place] [address] Dr. Sherry Quezada Basophils/100 WBC (Bld) 1.5 % Normal 0.2-2.0 [facility] Comment on above: Performed By: #### C VDTBH #### [facility] [address] [place] [address] Dr. Sherry Quezada EO # 0.1 103/ul Normal 0.0-0.7 [facility] Comment on above: Performed By: #### C VDTBH #### [facility] [address] [place] [address] Dr. Sherry Quezada Eosinophils/100 WBC (Bld) 2.3 % Normal 0.9-7.0 [facility] Comment on above: Performed By: #### C VDTBH #### [facility] [address] [place] [address] Dr. Sherry Quezada Erythrocyte distribution width (RBC) [Ratio] 15.9 % Critically high 11.0-15.0 [facility] Comment on above: Performed By: #### C VDTBH #### [facility] [address] [place] [address] Dr. Sherry Qeuzada Hematocrit (Bld) [Volume fraction] 31.9 % Critically low 36.0-48.0 [facility] Comment on above: Performed By: #### C VDTBH #### [facility] [address] [place] [address] Dr. Sherry Quezada Hemoglobin (Bld) [Mass/Vol] 9.4 g/dL Critically low 12.0-16.0 [facility] Comment on above: Performed By: #### C VDTBH #### [facility] [address] [place] [address] Dr. Sherry Quezada IG # 0.03 10e3/ul Normal 0.00-0.03 [facility] Comment on above: Performed By: #### C VDTBH #### [facility] [address] [place] [address] Dr. Sherry Quezada IG % 0.6 % Critically high 0.0-0.5 [facility] Comment on above: Performed By: #### C VDTBH #### [facility] [address] [place] [address] Dr. Sherry Quezada LYMPH # 0.8 103/ul Critically low 1.2-3.8 [facility] Comment on above: Performed By: #### C VDTBH #### [facility] [address] [place] [address] Dr. Sherry Quezada Lymphocytes/100 WBC (Bld) 16.1 % Critically low 20.5-60.0 [facility] [facility] Comment on above: Performed By: #### C VDTBH #### [facility] [address] [place] [address] Dr. Sherry Quezada MANUAL DIFF REQ NO Normal [facility] Comment on above: Performed By: #### C VDTBH #### [facility] [address] [place] [address] Dr. Sherry Quezada MCH (RBC) [Entitic mass] 26.9 pg Normal 26.7-34.0 [facility] Comment on above: Performed By: #### C VDTBH #### [facility] [address] [place] [address] Dr. Sherry Quezada MCHC (RBC) [Mass/Vol] 29.5 g/dL Critically low 29.9-35.2 [facility] Comment on above: Performed By: #### C VDTBH #### [facility] [address] [place] [address] Dr. Sherry Quezada MCV (RBC) [Entitic vol] 91.4 fL Normal 81.0-99.0 [facility] Comment on above: Performed By: #### C VDTBH #### [facility] [address] [place] [address] Dr. Sherry Quezada MONO # 0.3 103/ul Normal 0.3-0.8 [facility] Comment on above: Performed By: #### C VDTBH #### [facility] [address] [place] [address] Dr. Sherry Quezada Monocytes/100 WBC (Bld) 6.5 % Normal 1.7-12.0 [facility] Comment on above: Performed By: #### C VDTBH #### [facility] [address] [place] [address] Dr. Sherry Quezada NEUT # 3.5 103/ul Normal 1.4-6.5 [facility] Comment on above: Performed By: #### C VDTBH #### [facility] [address] [place] [address] Dr. Sherry Quezada Neutrophils/100 WBC (Bld) 73.0 % Normal 43.0-75.0 [facility] Comment on above: Performed By: #### C VDTBH #### [facility] [address] [place] [address] Dr. Sherry Quezada Platelet mean volume (Bld) [Entitic vol] 10.1 fL Normal 9.5-13.5 [facility] Comment on above: Performed By: #### C VDTBH #### [facility] [address] [place] [address] Dr. Sherry Quezada PLT 283 103/ul Normal 150-450 [facility] Comment on above: Performed By: #### C VDTBH #### [facility] [address] [place] [address] Dr. Sherry Quezada RBC 3.49 106/ul Critically low 4.20-5.40 [facility] Comment on above: Performed By: #### C VDTBH #### [facility] [address] [place] [address] Dr. Sherry Quezada WBC 4.8 103/ul Normal 4.0-11.0 [facility] Comment on above: Performed By: #### C VDTBH #### [facility] [address] [place] [address] Dr. Sherry Quezada FERRITINon 11-22-2021 Ferritin [Mass/Vol] 20.0 ng/mL Normal 11.1-264.0 [facility] Comment on above: Performed By: #### C BC #### [facility] [address] [place] [address] Dr. Sherry Quezada IRON AND TIBCon 11-22-2021 % SATURATION 3.9 % Normal [facility] Comment on above: Performed By: #### C BC #### [facility] [address] [place] [address] Dr. Sherry Quezada Iron [Mass/Vol] 15.0 ug/dL Critically low 37.0-170.0 [facility] Comment on above: Performed By: #### C BC #### [facility] [address] [place] [address] Dr. Sherry Quezada TIBC DIRECT 386.0 ug/dL Normal 261.0-497.0 [facility] Comment on above: Performed By: #### C BC #### [facility] [address] [place] [address] Dr. Sherry Quezada PROF 14(COMP METB)on 022 Albumin [Mass/Vol] 3.2 g/dL Critically low 3.4-5.0 [facility] Comment on above: Performed By: #### C BC #### [facility] [address] [place] [address] Dr. Sherry Quezada Albumin/Globulin [Mass ratio] 0.9 {ratio} Normal [facility] Comment on above: Performed By: #### C BC #### [facility] [address] [place] [address] Dr. Sherry Quezada ALP [Catalytic activity/Vol] 96 U/L Normal 46-116 [facility] Comment on above: Performed By: #### C BC #### [facility] [address] [place] [address] Dr. Sherry Quezada ALT [Catalytic activity/Vol] 19 U/L Normal 14-59 [facility] Comment on above: Performed By: #### C BC #### [facility] [address] [place] [address] Dr. Sherry Quezada Anion gap [Moles/Vol] 14.4 mmol/L Normal [facility] Comment on above: Performed By: #### C BC #### [facility] [address] [place] [address] Dr. Sherry Quezada AST [Catalytic activity/Vol] 14 U/L Critically low 15-37 [facility] Comment on above: Performed By: #### C BC #### [facility] [address] [address] [address] Sherry Quezada Bilirubin [Mass/Vol] 0.5 mg/dL Normal 0.2-1.3 [facility] Comment on above: Performed By: #### C BC #### [facility] [address] [address] [address] Sherry Quezada Calcium [Mass/Vol] 8.4 mg/dL Critically low 8.5-10.1 [facility] Comment on above: Performed By: #### C BC #### [facility] [address] [place] [address] Dr. Sherry Quezada Chloride [Moles/Vol] 106 mmol/L Normal 98-107 [facility] Comment on above: Performed By: #### C BC #### [facility] [address] [place] [address] Dr. Sherry Quezada CO2 [Moles/Vol] 25.1 mmol/L Normal 22.0-30.0 [facility] Comment on above: Performed By: #### C BC #### [facility] [address] [place] [address] Dr. Sherry Quezada Creatinine [Mass/Vol] 0.90 mg/dL Normal 0.52-1.04 [facility] Comment on above: Performed By: #### C BC #### [facility] [address] [place] [address] Dr. Sherry Quezada EGFR-AF RWANDAN >60 Normal >=60 [facility] Comment on above: Performed By: #### C BC #### [facility] [address] [place] [address] Dr. Sherry Quezada EGFR-NON AF RWANDAN >60 Normal >=60 [facility] Comment on above: Performed By: #### C BC #### [facility] [address] [place] [address] Dr. Sherry Quezada Globulin (S) [Mass/Vol] 3.6 g/dL Normal T [facility] Comment on above: Performed By: #### C BC #### [facility] [address] [address] [address] Sherry Quezada Glucose [Mass/Vol] 117 mg/dL Critically high 74-106 [facility] Comment on above: Performed By: #### C BC #### [facility] [address] [address] [address] Sherry Queazda Potassium [Moles/Vol] 4.5 mmol/L Normal 3.4-5.0 [facility] Comment on above: Performed By: #### C BC #### [facility] [address] [address] [address] Sherry Quezada Protein [Mass/Vol] 6.8 g/dL Normal 6.1-8.2 [facility] Comment on above: Performed By: #### C BC #### [facility] [address] [address] [address] Sherry Quezada Sodium [Moles/Vol] 141 mmol/L Normal 137-145 [facility] Comment on above: Performed By: #### C BC #### [facility] [address] [address] [address] Sherry Quezada Urea nitrogen [Mass/Vol] 12.0 mg/dL Normal 7.0-18.0 [facility] Comment on above: Performed By: #### C BC #### [facility] [address] [address] [address] Sherry Quezada Urea nitrogen/Creatinine [Mass ratio] 13.3 mg/mg Normal [facility] Comment on above: Performed By: #### C BC #### [facility] [address] [address] [address] Sherry Quezada Basophils Auto (Bld) [#/Vol] on 01-19-2021 Basophils (Bld) [#/Vol] 0.1 10*3/uL 0.0-0.2 [facility] Basophils/100 WBC Auto (Bld) on 01-19-2021 Basophils/100 WBC (Bld) 2.1 % . F [facility] Blood anisocytosis detection on 01-19-2021 Anisocytosis Ql (Bld) Marked Fir [facility] CT biopsyon 01-19-2021 Transferrin [Mass/Vol] 285 mg/dL 180-380 Fi [facility] Eosinophils Auto (Bld) [#/Vo l]on 01-19-2021 Eosinophils (Bld) [#/Vol] 0.1 10*3/uL 0.0-0.45 [facility] Eosinophils/100 WBC Auto (Bl d)on 01-19-2021 Eosinophils/100 WBC (Bld) 2.2 % . [facility] Erythrocyte distribution wid th Auto (RBC) [Ratio]on 01-19-2021 Erythrocyte distribution width (RBC) [Ratio] 21.4 % High 11.9-15.3 [facility] Ferritin [Mass/volume] in Se rum or Plasmaon 01-19-2021 Ferritin [Mass/Vol] 6.2 ng/mL Low 11-306.8 [facility] Hematocrit Auto (Bld) [Volum e fraction]on 01-19-2021 Hematocrit (Bld) [Volume fraction] 26.2 % Low 34.0-46.4 [facility] Hemoglobin [Mass/volume] in Bloodon 01-19-2021 Hemoglobin (Bld) [Mass/Vol] 7.7 g/dL Low 11.8-15.4 [facility] Hypochromia detectionon 01-03 Hypochromia Ql (Bld) Moderate [facility] Iron [Mass/volume] in Serum or Plasmaon 01-19-2021 Iron [Mass/Vol] 13 ug/dL Low 40-150 [facility] Iron binding capacity [Mass/ volume] in Serum or Plasmaon 01-19-2021 Iron binding capacity [Mass/Vol] 399 ug/dL 255-450 [facility] Iron saturation [Mass Fracti on] in Serum or Plasmaon 01-19-2021 Iron saturation [Mass fraction] 3.0 % Low 20-50 [facility] Laboratory - Hematology and Cell countson 01-19-2021 Nucleated RBC/100 WBC (Bld) [Ratio] 0.3 % 0-0.5 [facility] Leukocytes [#/volume] in Blo od by Automated counton 01-19-2021 WBC (Bld) [#/Vol] 4.1 10*3/uL Low 4.5-11.0 [facility] Lymphocytes Auto (Bld) [#/Vo l]on 01-19-2021 Lymphocytes (Bld) [#/Vol] 1.0 10*3/uL 1.00-4.8 [facility] Lymphocytes/100 WBC Auto (Bl d)on 01-19-2021 Lymphocytes/100 WBC (Bld) 24.0 % . [facility] MCH Auto (RBC) [Entitic mass ]on 01-19-2021 MCH (RBC) [Entitic mass] 21.9 pg Low 24.7-34.3 [facility] MCHC Auto (RBC) [Mass/Vol]on 01-19-2021 MCHC (RBC) [Mass/Vol] 29.5 g/dL Low 32.0-35.0 [facility] MCV Auto (RBC) [Entitic vol] on 01-19-2021 MCV (RBC) [Entitic vol] 74.4 fL Low 80-100 F [facility] Monocytes Auto (Bld) [#/Vol] on 01-19-2021 Monocytes (Bld) [#/Vol] 0.4 10*3/uL 0.0-0.8 [facility] Monocytes/100 WBC Auto (Bld) on 01-19-2021 Monocytes/100 WBC (Bld) 9.1 % . F [facility] Neutrophils Auto (Bld) [#/Vo l]on 01-19-2021 Neutrophils (Bld) [#/Vol] 2.5 10*3/uL 1.8-7.7 [facility] Neutrophils/100 WBC Auto (Bl d)on 01-19-2021 Neutrophils/100 WBC (Bld) 62.6 % . [facility] No Panel Informationon 01-19 Microcytosis Moderate [facility] Platelet Estimate Normal Normal [facility] Platelet Morphology Comment Normal Normal [facility] Ovalocyte detectionon 2020 Ovalocytes LM Ql (Bld) [facility] Platelet mean volume Auto (B ld) [Entitic vol]on 01-19-2021 Platelet mean volume (Bld) [Entitic vol] 8.3 fL 6.3-10.7 [facility] Platelets Auto (Bld) [#/Vol] on 01-19-2021 Platelets (Bld) [#/Vol] 341 10*3/uL 150-450 [facility] Polychromasia [Presence] in Blood by Light microscopyon 01-19-2021 Polychromasia LM Ql (Bld) Slight [facility] RBC Auto (Bld) [#/Vol]on RBC (Bld) [#/Vol] 3.52 10*6/uL Low 3.60-5.00 [facility] RBC morphologyon 01-19-2021 RBC morphology finding Nom (Bld) N/A [facility] Teardrop cell detectionon Dacrocytes LM Ql (Bld) Slight [facility] Bilirubin Test strip Ql (U)o n 01-11-2020 Bilirubin Ql (U) Negative Negative [facility] Color Auto (U)on 01-11-2020 Color (U) Yellow Yellow [facility] Ketones Auto test strip (U) [Mass/Vol]on 01-11-2020 Ketones (U) [Mass/Vol] Negative Negative [facility] Nitrite Test strip Ql (U)on 01-11-2020 Nitrite Ql (U) Negative Negative [facility] Protein Auto test strip (U) [Mass/Vol]on 01-11-2020 Protein (U) [Mass/Vol] Negative Negative [facility] Specific gravity Auto test s trip (U) [Rel density]on 01-11-2020 Specific gravity (U) [Rel density] 1.009 1.001-1.030 [facility] Urine clarity by refractomet ry automatedon 01-11-2020 Clarity Refractometry automated (U) Clear Clear [facility] Urine glucose measurement by automated test strip (mass/volume)on 01-11-2020 Glucose Auto test strip (U) [Mass/Vol] Normal mg/dL Normal [facility] Urine hemoglobin detection b y automated test stripon 01-11-2020 Hemoglobin Auto test strip Ql (U) Negative Negative [facility] Urine leukocyte esterase det ection by automated test stripon 01-11-2020 Leukocyte esterase Auto test strip Ql (U) Negative Negative [facility] Urobilinogen Auto test strip (U) [Mass/Vol]on 01-11-2020 Urobilinogen (U) [Mass/Vol] Normal mg/dL Normal [facility] pH Auto test strip (U)on pH (U) 6.5 [pH] 5.0-9.0 [facility] Albumin [Mass/volume] in Ser um or Plasmaon 01-01-2020 Albumin [Mass/Vol] 3.2 g/dL 3.2-5.5 [facility] Creatinine and Glomerular fi ltration rate.predicted panel (S/P/Bld)on 01-01-2020 Creatinine [Mass/Vol] 0.85 mg/dL 0.44-1.03 [facility] Estimated glomerular filtrat ion rate (GFR) non- Americanon 01-01-2020 GFR/1.73 sq M.predicted among non-blacks MDRD (S/P/Bld) [Vol rate/Area] mL/min/{1.73_m2} [facility] Folate [Mass/volume] in Seru m or Plasmaon 01-01-2020 Folate [Mass/Vol] 6.7 ng/mL >4.0 [facility] Comment on above: Folate reference ran ge: >5.9 ng/mlThe WHO technical consultation on folate and vitamin [id number] has determined that folate concentrations lessthan 4 ng/ml are considered deficient. Globulin Calc (S) [Mass/Vol] on 01-01-2020 Globulin (S) [Mass/Vol] 3.3 g/dL F [facility] Laboratory - Chemistry and C hemistry - challengeon 01-01-2020 Cobalamin (Vitamin B12) [Mass/Vol] 261 pg/mL 180-914 [facility] GFR/1.73 sq M.predicted MDRD (S/P/Bld) [Vol rate/Area] mL/min/{1.73_m2} [facility] Comment on above: GFR estimated refere nce range: According to KDOQI guidelines, <60 ml/min/1.73m2 is sufficient to diagnose a patient with chronic kidney disease. Laboratory - Hematology and Cell countson 01-01-2020 WBC (Bld) [#/Vol] 6.1 10*3/uL 4.5-11.0 [facility] No Panel Informationon 12-31 Pharmacy Creatinine Clearance (Chem [id number] [facility] Protein [Mass/volume] in Ser um or Plasmaon 01-01-2020 Protein [Mass/Vol] 6.5 g/dL 6.1-7.9 [facility] Serum or plasma alanine liz otransferase measurement without P-5'-P (enzymatic activion 01-01-2020 ALT No additional P-5'-P [Catalytic activity/Vol] 13 U/L 10-60 [facility] Serum or plasma albumin/glob ulin mass ratioon 01-01-2020 Albumin/Globulin [Mass ratio] 1.0 {ratio} [facility] Serum or plasma alkaline bria sphatase measurement (enzymatic activity/volume)on 01-01-2020 ALP [Catalytic activity/Vol] 93 U/L High 32-92 [facility] Serum or plasma aspartate am inotransferase measurement (enzymatic activity/volume)on 01-01-2020 AST [Catalytic activity/Vol] 13 U/L 10-42 [facility] Serum or plasma calcium chris urement (mass/volume)on 01-01-2020 Calcium [Mass/Vol] 8.6 mg/dL 8.2-10.2 [facility] Serum or plasma chloride chiara surement (moles/volume)on 01-01-2020 Chloride [Moles/Vol] 107 mmol/L 95-114 [facility] Serum or plasma glucose chris urement (mass/volume)on 01-01-2020 Glucose [Mass/Vol] 108 mg/dL High 70-100 [facility] Comment on above: ADA recommended refe rence rangeRandom Glucose Reference Range is dependent on time and content of last meal. Glucose of more than 200 mg/dL in a nonstressed, ambulatory subject supports the diagnosis of Diabetes Mellitus. Serum or plasma potassium me asurement (moles/volume)on 01-01-2020 Potassium [Moles/Vol] 4.4 mmol/L 3.5-5.1 [facility] Serum or plasma sodium measu rement (moles/volume)on 01-01-2020 Sodium [Moles/Vol] 137 mmol/L 136-146 [facility] Serum or plasma total biliru bin measurement (mass/volume)on 01-01-2020 Bilirubin [Mass/Vol] 0.8 mg/dL 0.3-1.2 [facility] Serum or plasma total carbon dioxide measurement (moles/volume)on 01-01-2020 CO2 [Moles/Vol] 20.8 mmol/L Low 22.0-30.0 [facility] Serum or plasma urea nitroge n measurement (mass/volume)on 01-01-2020 Urea nitrogen [Mass/Vol] 16 mg/dL 04-27 [facility] Vital Signs Date Time Vital Sign Value Performing Clinician Facility 03-09-2024 13:47-0400 Body height 168.91 cm DO Shalom Ball Work Phone: [facility] 03-09-2024 13:47-0400 Body mass index (BMI) [Ratio] 38.7 kg/m2 DO Shalom Ball Work Phone: [facility] 03-09-2024 13:47-0400 Body weight 110.44 kg DO Shalom Ball Work Phone: [facility] 03-09-2024 13:47-0400 Diastolic blood pressure 80 mm[Hg] DO Shalom Ball Work Phone: [facility] 03-09-2024 13:47-0400 Heart rate 87 /min DO Shalom Ball Work Phone: [facility] 03-09-2024 13:47-0400 Respiratory rate 12 /min DO Shalom Ball Work Phone: [facility] 03-09-2024 13:47-0400 Systolic blood pressure 122 mm[Hg] DO Shalom Ball Work Phone: [facility] 02-13-2024 13:24-0400 Body temperature 97.9 [degF] DO Shalom Ball Work Phone: [facility] 02-13-2024 13:24-0400 Body weight 110.67 kg DO Shalom Ball Work Phone: [facility] 02-13-2024 13:24-0400 Diastolic blood pressure 77 mm[Hg] DO Shalom Ball Work Phone: [facility] 02-13-2024 13:24-0400 Heart rate 97 /min DO Shalom Ball Work Phone: [facility] 02-13-2024 13:24-0400 Respiratory rate 16 /min DO Shalom Ball Work Phone: [facility] 02-13-2024 13:24-0400 SaO2% (BldA) [Mass fraction] 98 % DO Shalom Ball Work Phone: [facility] 02-13-2024 13:24-0400 Systolic blood pressure 119 mm[Hg] DO Shalom Ball Work Phone: [facility] 01-16-2024 13:49-0400 Body height 168.91 cm DO Shalom Ball Work Phone: [facility] 01-16-2024 13:49-0400 Body mass index (BMI) [Ratio] 38.9 kg/m2 DO Shalom Ball Work Phone: [facility] 01-16-2024 13:49-0400 Body weight 111 kg DO Shalom Ball Work Phone: [facility] 11-26-2023 16:02-0400 Diastolic blood pressure 78 mm[Hg] DO Shalom Ball Work Phone: [facility] 11-26-2023 16:02-0400 Heart rate 82 /min DO Shalom Ball Work Phone: [facility] 11-26-2023 16:02-0400 Respiratory rate 18 /min DO Shalom Ball Work Phone: [facility] 11-26-2023 16:02-0400 SaO2% (BldA) [Mass fraction] 99 % DO Shalom Ball Work Phone: [facility] 11-26-2023 16:02-0400 Systolic blood pressure 138 mm[Hg] DO Shalom Ball Work Phone: [facility] 11-26-2023 14:31-0400 Body temperature 98.1 [degF] DO Shalom Ball Work Phone: [facility] 11-12-2023 12:57-0400 Body height 168.91 cm DO Shalom Ball Work Phone: [facility] 11-12-2023 12:57-0400 Body mass index (BMI) [Ratio] 39 kg/m2 DO Shalom Ball Work Phone: [facility] 11-12-2023 12:57-0400 Body temperature 97.4 [degF] DO Shalom Ball Work Phone: [facility] 11-12-2023 12:57-0400 Body weight 111.35 kg DO Shalom Ball Work Phone: [facility] 11-12-2023 12:57-0400 Diastolic blood pressure 71 mm[Hg] DO Shalom Ball Work Phone: [facility] 11-12-2023 12:57-0400 Heart rate 81 /min DO Shalom Ball Work Phone: [facility] 11-12-2023 12:57-0400 Respiratory rate 18 /min DO Shalom Ball Work Phone: [facility] 11-12-2023 12:57-0400 SaO2% (BldA) [Mass fraction] 97 % DO Shalom Ball Work Phone: [facility] 11-12-2023 12:57-0400 Systolic blood pressure 133 mm[Hg] DO Shalom Ball Work Phone: [facility] 11-05-2023 13:38-0400 Body height 168.91 cm DO Shalom Ball Work Phone: [facility] 11-05-2023 13:38-0400 Body mass index (BMI) [Ratio] 39.1 kg/m2 DO Shalom Ball Work Phone: [facility] 11-05-2023 13:38-0400 Body weight 111.69 kg DO Shalom Ball Work Phone: [facility] 11-05-2023 13:38-0400 Diastolic blood pressure 81 mm[Hg] DO Shalom Ball Work Phone: [facility] 11-05-2023 13:38-0400 Heart rate 80 /min DO Shalom Ball Work Phone: [facility] 11-05-2023 13:38-0400 Respiratory rate 12 /min DO Shalom Ball Work Phone: [facility] 11-05-2023 13:38-0400 Systolic blood pressure 139 mm[Hg] DO Shalom Ball Work Phone: [facility] 08-14-2023 13:30-0500 Body height 168.91 cm Shalom Ball Other [facility] 08-14-2023 13:30-0500 Body mass index (BMI) [Ratio] 39.2 kg/m2 Shalom Ball Other [facility] Other 08-14-2023 13:30-0500 Body weight 111.86 kg Shalom Ball Other [facility] Other 08-14-2023 13:30-0500 Body weight 111.85 kg DO Shalom Ball Work Phone: [facility] 08-14-2023 13:30-0500 Diastolic blood pressure 76 mm[Hg] Shalom Ball Other [facility] 08-14-2023 13:30-0500 Respiratory rate 12 /min Shalom Ball Other [facility] Other 08-14-2023 13:30-0500 Systolic blood pressure 116 mm[Hg] Shalom Ball Other [facility] 08-13-2023 12:57-0500 Body height 167.64 cm DO Shalom Ball Work Phone: [facility] 08-13-2023 12:57-0500 Body weight 111.67 kg DO Shaolm Ball Work Phone: [facility] 08-13-2023 12:57-0500 Diastolic blood pressure 77 mm[Hg] DO Shalom Ball Work Phone: [facility] 08-13-2023 12:57-0500 Heart rate 76 /min DO Shalom Ball Work Phone: [facility] 08-13-2023 12:57-0500 Respiratory rate 20 /min DO Shalom Ball Work Phone: [facility] 08-13-2023 12:57-0500 SaO2% (BldA) [Mass fraction] 99 % DO Shalom Ball Work Phone: [facility] 08-13-2023 12:57-0500 Systolic blood pressure 124 mm[Hg] DO Shalom Ball Work Phone: [facility] 08-06-2023 13:30-0500 Body height 168.91 cm Ricky Benson Other [facility] 08-06-2023 13:30-0500 Body mass index (BMI) [Ratio] 38.15 kg/m2 Ricky Benson Other [facility] Other 08-06-2023 13:30-0500 Body weight 108.86 kg Ricky Benson Other [facility] 08-06-2023 13:30-0500 Diastolic blood pressure 74 mm[Hg] Ricky Benson Other [facility] 08-06-2023 13:30-0500 Systolic blood pressure 137 mm[Hg] Ricky Benson Other [facility] 06-13-2023 13:00-0500 Body temperature 97.2 [degF] DO Shalom Ball Work Phone: [facility] 06-13-2023 13:00-0500 Body weight 111.58 kg DO Shalom Ball Work Phone: [facility] [facility] 06-13-2023 13:00-0500 Diastolic blood pressure 75 mm[Hg] DO Shalom Ball Work Phone: [facility] 06-13-2023 13:00-0500 Heart rate 88 /min DO Shalom Ball Work Phone: [facility] 06-13-2023 13:00-0500 Respiratory rate 16 /min DO Shalom Ball Work Phone: [facility] 06-13-2023 13:00-0500 SaO2% (BldA) [Mass fraction] 95 % DO Shalom Ball Work Phone: [facility] 06-13-2023 13:00-0500 Systolic blood pressure 121 mm[Hg] DO Shalom Ball Work Phone: [facility] 05-15-2023 14:32-0400 Diastolic blood pressure 60 mm[Hg] DO Shalom Ball Work Phone: [facility] 05-15-2023 14:32-0400 Heart rate 75 /min DO Shalom Ball Work Phone: [facility] 05-15-2023 14:32-0400 Respiratory rate 18 /min DO Shalom Ball Work Phone: [facility] 05-15-2023 14:32-0400 SaO2% (BldA) [Mass fraction] 97 % DO Shalom Ball Work Phone: [facility] 05-15-2023 14:32-0400 Systolic blood pressure 107 mm[Hg] DO Shalom Ball Work Phone: [facility] 05-15-2023 12:04-0400 Body height 168.91 cm DO Shalom Ball Work Phone: [facility] 05-15-2023 12:04-0400 Body temperature 98.1 [degF] DO Shalom Ball Work Phone: [facility] 05-15-2023 12:04-0400 Body weight 109.76 kg DO Shalom Ball Work Phone: [facility] 05-09-2023 13:17-0400 Body temperature 97.9 [degF] DO Shalom Ball Work Phone: [facility] 05-09-2023 13:17-0400 Diastolic blood pressure 65 mm[Hg] DO Shalom Ball Work Phone: [facility] 05-09-2023 13:17-0400 Heart rate 110 /min DO Shalom Ball Work Phone: [facility] 05-09-2023 13:17-0400 Respiratory rate 18 /min DO Shalom Ball Work Phone: [facility] 05-09-2023 13:17-0400 SaO2% (BldA) [Mass fraction] 99 % DO Shalom Ball Work Phone: [facility] 05-09-2023 13:17-0400 Systolic blood pressure 152 mm[Hg] DO Shalom Ball Work Phone: [facility] 05-07-2023 13:30-0400 Body height 168.91 cm Ricky Benson Other [employer] Other 05-07-2023 13:30-0400 Body mass index (BMI) [Ratio] 38.49 kg/m2 Ricky Benson Other [employer] Other 05-07-2023 13:30-0400 Body weight 109.82 kg Ricky Benson Other [employer] Other 05-07-2023 13:30-0400 Diastolic blood pressure 78 mm[Hg] Ricky Benson Other [employer] Other 05-07-2023 13:30-0400 Systolic blood pressure 129 mm[Hg] Ricky Benson Other [facility] [facility] Other 04-26-2023 13:02-0400 Body weight 110.67 kg DO Shalom Ball Work Phone: [facility] 03-12-2023 13:03-0400 Body temperature 97.8 [degF] DO Shalom Ball Work Phone: [facility] 03-12-2023 13:03-0400 Body weight 112.49 kg DO Shalom Ball Work Phone: [facility] 03-12-2023 13:03-0400 Diastolic blood pressure 53 mm[Hg] DO Shalom Ball Work Phone: [facility] 03-12-2023 13:03-0400 Heart rate 75 /min DO Shalom Ball Work Phone: [facility] 03-12-2023 13:03-0400 Respiratory rate 16 /min DO Shalom Ball Work Phone: [facility] 03-12-2023 13:03-0400 SaO2% (BldA) [Mass fraction] 100 % DO Shalom Ball Work Phone: [facility] 03-12-2023 13:03-0400 Systolic blood pressure 111 mm[Hg] DO Shalom Ball Work Phone: [facility] 01-08-2023 13:33-0400 Body temperature 97.8 [degF] DO Shalom Ball Work Phone: [facility] 01-08-2023 13:33-0400 Body weight 115.21 kg DO Shalom Ball Work Phone: [facility] 01-08-2023 13:33-0400 Diastolic blood pressure 64 mm[Hg] DO Shalom Ball Work Phone: [facility] 01-08-2023 13:33-0400 Heart rate 84 /min DO Shalom Ball Work Phone: [facility] 01-08-2023 13:33-0400 Respiratory rate 16 /min DO Shalom Ball Work Phone: [facility] 01-08-2023 13:33-0400 SaO2% (BldA) [Mass fraction] 98 % DO Shalom Ball Work Phone: [facility] 01-08-2023 13:33-0400 Systolic blood pressure 132 mm[Hg] DO Shalom Ball Work Phone: [facility] 11-19-2022 14:30-0400 Body height 168.91 cm Shalom Ball Other [facility] [employer] Other 11-19-2022 14:30-0400 Body mass index (BMI) [Ratio] 39.58 kg/m2 Shalom Ball Other [employer] Other 11-19-2022 14:30-0400 Body weight 112.95 kg Shalom Ball Other [email or web address] Other 11-19-2022 14:30-0400 Diastolic blood pressure 76 mm[Hg] Shalom Ball Other [employer] Other 11-19-2022 14:30-0400 Respiratory rate 16 /min Shalom Ball Other [employer] Other 11-19-2022 14:30-0400 Systolic blood pressure 122 mm[Hg] Shalom Ball Other [employer] Other 10-24-2022 15:45-0400 Body height 168.91 cm Shalom Ball Other [employer] Other 10-24-2022 15:45-0400 Body mass index (BMI) [Ratio] 39.77 kg/m2 Shalom Ball Other [employer] Other 10-24-2022 15:45-0400 Body weight 113.49 kg Shalom Ball Other [employer] Other 10-24-2022 15:45-0400 Diastolic blood pressure 81 mm[Hg] Shalom Ball Other [employer] Other 10-24-2022 15:45-0400 Respiratory rate 12 /min Shalom Ball Other [employer] Other 10-24-2022 15:45-0400 Systolic blood pressure 137 mm[Hg] Shalom Ball Other [employer] Other 10-10-2022 13:30-0500 Body height 168.91 cm Shalom Ball Other [employer] Other 10-10-2022 13:30-0500 Body mass index (BMI) [Ratio] 40.28 kg/m2 Shalom Ball Other [employer] Other 10-10-2022 13:30-0500 Body weight 114.94 kg Shalom Ball Other [employer] Other 10-10-2022 13:30-0500 Diastolic blood pressure 76 mm[Hg] Shalom Ball Other [employer] Other 10-10-2022 13:30-0500 Respiratory rate 12 /min Shalom Ball Other [employer] Other 10-10-2022 13:30-0500 Systolic blood pressure 122 mm[Hg] Shalom Ball Other [employer] Other 08-09-2022 13:08-0500 Body temperature 97.8 [degF] DO Shalom Ball Work Phone: [facility] 08-09-2022 13:08-0500 Body weight 113.8 kg DO Shalom Ball Work Phone: [facility] 08-09-2022 13:08-0500 Diastolic blood pressure 65 mm[Hg] DO Shalom Ball Work Phone: [facility] 08-09-2022 13:08-0500 Heart rate 101 /min DO Shalom Ball Work Phone: [facility] 08-09-2022 13:08-0500 Respiratory rate 18 /min DO Shalom Ball Work Phone: [facility] 08-09-2022 13:08-0500 SaO2% (BldA) [Mass fraction] 98 % DO Shalom Ball Work Phone: [facility] 08-09-2022 13:08-0500 Systolic blood pressure 107 mm[Hg] DO Shalom Ball Work Phone: [facility] 06-21-2022 16:30-0500 Body height 167.64 cm DO Shalom Ball Work Phone: [facility] Encounters Encounter Date Encounter Type Care Provider Facility Start: 04-14-2024 End: 04-14-2024 ambulatory DO Shalom Ball Work Phone: [facility] Work Phone: Start: 04-14-2024 End: 04-14-2024 Patient encounter procedure DO Shalom Ball Work Phone: [facility] Work Phone: Start: 03-09-2024 End: 03-09-2024 ambulatory DO Shalom Ball Work Phone: [facility] Work Phone: Start: 03-09-2024 End: 03-09-2024 Patient encounter procedure DO Shalom Ball Work Phone: [facility] Work Phone: Start: 02-13-2024 End: 02-13-2024 ambulatory DO Shalom Ball Work Phone: [facility] Work Phone: Start: 02-13-2024 End: 02-13-2024 Patient encounter procedure DO Shalom Ball Work Phone: [facility] Work Phone: Start: 02-13-2024 Registered Recurring DO Benjam in Ball Work Phone: [facility] Work Phone: Start: 02-13-2024 ambulatory Ricky Benson Fa cility:[facility] Start: 02-04-2024 End: 02-04-2024 ambulatory DO Shalom Ball Work Phone: [facility] Work Phone: Start: 02-04-2024 End: 02-04-2024 Patient encounter procedure DO Shalom Ball Work Phone: [facility] Work Phone: Start: 01-16-2024 End: 01-16-2024 ambulatory DO Shalom Ball Work Phone: [facility] Work Phone: Start: 01-16-2024 End: 01-16-2024 Patient encounter procedure DO Shalom Ball Work Phone: [facility] G[facility]enterology Work Phone: Start: 12-26-2023 End: 12-26-2023 ambulatory DO Shalom Ball Work Phone: [facility] Work Phone: Start: 12-26-2023 End: 12-26-2023 Patient encounter procedure DO Shalom Ball Work Phone: [facility] Work Phone: Start: 11-26-2023 Registered Recurring DO Benjam in Ball Work Phone: [facility] Work Phone: Start: 11-12-2023 End: 11-12-2023 ambulatory DO Shalom Ball Work Phone: [facility] Work Phone: Start: 11-12-2023 End: 11-12-2023 Patient encounter procedure DO Shalom Ball Work Phone: [facility] Work Phone: Start: 11-12-2023 Registered Recurring DO Benjam in Ball Work Phone: [facility] Work Phone: Start: 11-07-2023 End: 11-07-2023 ambulatory DO Shalom Ball Work Phone: [facility] Work Phone: Start: 11-07-2023 End: 11-07-2023 Patient encounter procedure DO Shalom Ball Work Phone: [facility] Work Phone: Start: 11-06-2023 Orders Only Hailee noble KITCHEN HAND-CONSERVATION EDUCATOR Work Phone: [facility] Start: 11-05-2023 End: 11-05-2023 ambulatory DO Shalom Ball Work Phone: [facility] Work Phone: Start: 11-05-2023 End: 11-05-2023 Patient encounter procedure DO Shalom Ball Work Phone: [facility] Work Phone: Start: 11-04-2023 Telephone encounter [facility] Start: 2023 Orders Only Not In System Ref Prov [facility] Start: 10-29-2023 Non-patient / Non-visit DO Shalom Ball Work Phone: [facility] Work Phone: Start: 10-24-2023 Non-patient / Non-visit DO Shalom Ball Work Phone: [facility] Work Phone: Start: 10-23-2023 Orders Only Not In System Ref Prov [facility] Start: 10-22-2023 Non-patient / Non-visit DO Shalom Ball Work Phone: [facility] Work Phone: Start: 10-21-2023 End: 10-21-2023 ambulatory DO Shalom Ball Work Phone: [facility] Work Phone: Start: 10-21-2023 End: 10-21-2023 Departed Referred DO Shalom Ball Work Phone: [facility] Start: 10-21-2023 Non-patient / Non-visit DO Shalom Ball Work Phone: [facility] Work Phone: Start: 10-02-2023 End: 10-02-2023 Patient encounter procedure DO Shalom Ball Work Phone: [facility] Work Phone: Start: 08-27-2023 End: 08-27-2023 ambulatory Shalom Hayward Other [employer] Other Start: 08-27-2023 Nursing evaluation o f patient and report Shalom Hayward [facility] Start: 08-14-2023 End: 08-14-2023 ambulatory Shalom Hayward Other [employer] Other Start: 08-14-2023 Office outpatient visit 25 minutes Shalom Ball [facility] Start: 08-14-2023 End: 08-14-2023 Patient encounter procedure DO Shalom Ball Work Phone: [facility] Work Phone: Start: 08-13-2023 End: 08-13-2023 ambulatory DO Shalom Ball Work Phone: [facility] Work Phone: Start: 08-13-2023 End: 08-13-2023 Registered Recurring DO Shalom Hayward Work Phone: [facility] Work Phone: Start: 08-06-2023 End: 08-06-2023 ambulatory Ricky Benson Other [employer] Other Start: 08-06-2023 Office outpatient visit 15 minutes Ricky Benson [facility] Gastroenterology Start: 08-06-2023 End: 08-06-2023 Patient encounter procedure DO Shalom Mainor Work Phone: [facility] Gastro[facility] Work Phone: Start: 07-26-2023 End: 07-26-2023 ambulatory Shalom Hayward Other [facility] [facility] Other Start: 07-26-2023 Nursing evaluation o f patient and report Shalom Hayward [facility] Start: 06-13-2023 End: 06-13-2023 ambulatory DO Shalom Ball Work Phone: [facility] Work Phone: Start: 06-13-2023 End: 06-13-2023 Registered Recurring DO Shalom Mainor Work Phone: [facility] Work Phone: Start: 05-24-2023 End: 05-24-2023 ambulatory Shalom Hayward Other [email or web address] Other Start: 05-24-2023 Nursing evaluation o f patient and report Shalom Hayward [facility] Start: 05-15-2023 Telephone encounter Ricky Mason [facility] Start: 05-15-2023 End: 05-15-2023 Admission to same day surgery center DO Shalom Ball Work Phone: [facility] Work Phone: Start: 05-15-2023 End: 05-15-2023 ambulatory DO Shalom Ball Work Phone: [facility] Work Phone: Start: 05-09-2023 Registered Recurring DO Yaraam in Ball Work Phone: [facility] Work Phone: Start: 05-07-2023 End: 05-07-2023 ambulatory Ricky Benson Other [employer] Other Start: 05-07-2023 Office outpatient visit 25 minutes Ricky Benson [facility] Gastroenterology Start: 04-24-2023 End: 04-24-2023 ambulatory Shalom Hayward Other [employer] Other Start: 04-24-2023 Nursing evaluation o f patient and report Shalom Hayward [facility] Start: 03-12-2023 End: 03-12-2023 ambulatory DO Shalom Ball Work Phone: [facility] Work Phone: Start: 03-12-2023 End: 03-12-2023 Registered Recurring DO Shalom Ball Work Phone: [facility] Work Phone: Start: 02-21-2023 End: 02-21-2023 ambulatory Shalom Ball Other [employer] Other Start: 02-21-2023 Telephone encounter Shalom Hayward [facility] Start: 02-14-2023 End: 02-14-2023 ambulatory Shalom Ball Other [employer] Other Start: 02-14-2023 Nursing evaluation o f patient and report Shalom Hayward [facility] Start: 01-08-2023 End: 01-08-2023 ambulatory DO Shalom Ball Work Phone: [facility] Work Phone: Start: 01-08-2023 End: 01-08-2023 Registered Recurring DO Shalom Ball Work Phone: [facility] Work Phone: Start: 12-11-2022 End: 12-11-2022 ambulatory Shalom Hayward Other [employer] Other Start: 12-11-2022 Nursing evaluation o f patient and report Shalom Hayward [facility] Start: 11-19-2022 End: 11-19-2022 ambulatory Shalom Hayward Other [employer] Other Start: 11-19-2022 Office outpatient visit 15 minutes Shalom Hayward [facility] Start: 11-05-2022 End: 11-06-2022 [facility] [employer] Other Start: 11-05-2022 Nursing evaluation o f patient and report Shalom Hayward [facility] Start: 11-02-2022 End: 11-02-2022 ambulatory Shalom Hayward Other [employer] Other Start: 11-02-2022 Telephone encounter Shalom Hayward [facility] Start: 10-24-2022 End: 10-24-2022 ambulatory Shalom Hayward Other [employer] Other Start: 10-24-2022 Office outpatient visit 15 minutes Shalom Hayward [facility] Start: 10-10-2022 End: 10-10-2022 ambulatory Shalom Hayward Other [employer] Other Start: 10-10-2022 Transitional care manage srvc 14 day discharge Shalom Hayward [facility] Start: 10-02-2022 End: 10-02-2022 ambulatory Shalom Hayward Other [employer] Other Start: 10-02-2022 Nursing evaluation o f patient and report Shalom Hayward [facility] Start: 10-01-2022 End: 10-02-[address] PRASANNA CUMMINS . Facility: Start: 08-20-2022 End: 08-20-2022 ambulatory Shalom Hayward Other [employer] Other Start: 08-20-2022 Nursing evaluation o f patient and report Shalom [facility] Start: 08-09-2022 End: 08-09-2022 ambulatory DO Shalom Hayward Work Phone: [facility] Work Phone: Start: 08-09-2022 End: 08-09-2022 Registered Recurring DO Shalom Hayward Work Phone: [facility] Work Phone: Start: 08-06-2022 End: 08-07-[address] TAINA TOUSSAINT Facility:[facility] Start: 06-04-2022 End: 06-05-[address] SHALOM HAYWARD Facility:[facility] Start: 04-03-2022 End: 04-04-[address] SHALOM HAYWARD Facility:[facility] Start: 02-25-2022 Adult health examination Shalom Hayward Other [employer] Other Start: 02-16-2022 End: 02-17-[address] SHALOM HAYWARD Facility:[facility] Start: 02-13-2022 End: 02-14-[address] DOCTOR NAIDU Facility:[facility] Start: 01-03-2022 End: 01-04-[address] TAINA TOUSSAINT Facility:[facility] Start: 11-24-[address] Taina Toussaint Fac ility:[id number] Start: 11-22-2021 End: 11-23-[address] SHALOM HAYWARD Facility:[facility] Procedures Date Procedure Procedure Detail Performing Clinician Start: 10-21-2023 Assay of lactate Not In System Ref Prov Start: 10-21-2023 Blood Culture 1 DO Shalom Hayward Work Phone: Start: 10-21-2023 Blood Culture 2 DO Shalom Hayward Work Phone: Start: 10-21-2023 Level i surg pathology gross examination only Not In System Ref Prov Start: 05-15-2023 Esophagogastroduodenoscopy DO Shalom Zapata all Work Phone: Start: 03-12-2017 Screening for malignant neoplasm of colon Ricky Benson Other Start: 02-02-2015 Screening for osteoporosis Ricky le Other Screening for malign ant neoplasm of breast Shalom Hayward Other Plan of Treatment Date Care Activity Detail Author Start: 04-05-2024 Influenza vaccination Influenza Vaccine [facility] Start: 12-09-2023 End: 12-09-2023 Patient encounter procedure 12/09/2023 2:30 PM EDT Office Visit [facility] [address] [place] [id number] Hailee Preston APRNCONSERVATION EDUCATOR [address], [place] [id number] [facility] Start: 11-26-2023 [facility] Start: 11-19-2023 [facility] Start: 07-01-2023 [facility] Start: 06-20-2023 End: 06-21-2023 [facility] Start: 05-15-2023 End: 05-15-2023 [facility] Start: 05-09-2023 [facility] Start: 05-02-2023 [facility] Start: 03-28-2023 [facility] Start: 03-20-2023 End: 03-21-2023 [facility] Start: 01-30-2023 [facility] Start: 01-24-2023 [facility] Start: 01-16-2023 [facility] Start: 11-22-2022 [facility] Start: 11-15-2022 [facility] Start: 08-20-2022 [facility] Start: 08-13-2022 [facility] Start: 06-21-2022 [facility] Start: 06-14-2022 [facility] Start: 05-01-2022 [facility] Start: 04-24-2022 [facility] Start: 01-23-2022 [facility] Start: 01-16-2022 [facility] Start: 12-29-2021 [facility] Start: 12-11-2021 [facility] Start: 01-30-2021 [facility] Start: 09-22-2020 [facility] Start: 07-15-2020 [facility] Start: 2014 Fall Risk Screening [facility] Start: 10-31-1999 Administration of varicella zoster vaccine Zoster (Shingles) Vaccine (1 of 2) [facility] Start: 1968 DTaP,Tdap and Td Vaccines (1 - Tdap) DTaP,Tdap and Td Vaccines (1 - [facility]ap) [facility] Start: 10-31-1967 Adult BMI Screening Adult [facility] Screening [facility] Start: 1961 Depression Screening [facility]ening [facility] [email or web address] Start: 1961 Tobacco Screening [facility] Screening [facility] Start: 1949 Medicare Annual Wellness Visit Medicare Annual Wellness Visit [facility] [employer] Basophils [#/volume] in Blood by Automated count [facility] Basophils/100 leukoc ytes in Blood by Automated count [facility] Comprehensive metabo lic 1999 panel - Serum or Plasma [facility] Comprehensive metabo lic 1999 panel - Serum or Plasma [facility] Comprehensive metabo lic 1999 panel - Serum or Plasma [facility] Comprehensive metabo lic 1999 panel - Serum or Plasma [facility] Comprehensive metabo lic 1999 panel - Serum or Plasma [facility] Comprehensive metabo lic 1999 panel - Serum or Plasma [facility] Comprehensive metabo lic 1999 panel - Serum or Plasma [facility] Comprehensive metabo lic 1999 panel - Serum or Plasma [facility] Comprehensive metabo lic 1999 panel - Serum or Plasma [facility] Comprehensive metabo lic 1999 panel - Serum or Plasma [facility] Comprehensive metabo lic 1999 panel - Serum or Plasma [facility] Comprehensive metabo lic 1999 panel - Serum or Plasma [facility] Eosinophils [#/volum e] in Blood [facility] Eosinophils/100 leuk ocytes in Blood by Automated count [facility] Erythrocyte distribu tion width [Ratio] by Automated count [facility] Erythrocytes [#/volu me] in Blood [facility] Ferritin [Mass/volum e] in Serum or Plasma [facility] Ferritin [Mass/volum e] in Serum or Plasma [facility] Ferritin [Mass/volum e] in Serum or Plasma [facility] Ferritin [Mass/volum e] in Serum or Plasma [facility] Ferritin [Mass/volum e] in Serum or Plasma [facility] Ferritin [Mass/volum e] in Serum or Plasma [facility] Ferritin [Mass/volum e] in Serum or Plasma [facility] Ferritin [Mass/volum e] in Serum or Plasma [facility] Ferritin [Mass/volum e] in Serum or Plasma [facility] Ferritin [Mass/volum e] in Serum or Plasma [facility] Hematocrit [Volume Fraction] of Blood [facility] Hemoglobin [Mass/vol ume] in Blood [facility] Leukocytes [#/volume ] corrected for nucleated erythrocytes in Blood by Automated coun [facility] Leukocytes [#/volume ] in Blood [facility] Lymphocytes [#/volum e] in Blood by Automated count [facility] Lymphocytes/100 leuk ocytes in Blood by Automated count [facility] MCH [Entitic mass] b y Automated count [facility] MCHC [Mass/volume] b y Automated count [facility] MCV [Entitic volume] by Automated count [facility] Monocytes [#/volume] in Blood by Automated count [facility] Monocytes/100 leukoc ytes in Blood by Automated count [facility] Neutrophils [#/volum e] in Blood by Automated count [facility] Neutrophils/100 leuk ocytes in Blood by Automated count [facility] Nucleated erythrocyt es [Presence] in Blood by Automated count [facility] Patient Education Gastric Ulcer (DC) Hiatal Hernia (DC) [facility] Work Phone: Platelet mean volume [Entitic volume] in Blood by Automated count [facility] Platelets [#/volume] in Blood [facility] Immunizations Immunization Date Immunization Notes Care Provider Rosy mei 05-31-2023 influenza, high dose seasonal, preservative-free Shalom Ball Other [facility] Other 05-31-2023 influenza virus vaccine, unspecified formulation DO Shalom Ball Work Phone: [facility] 04-23-2022 influenza, high dose seasonal, preservative-free Shalom Ball Other [employer] Other 04-23-2022 influenza virus vaccine, unspecified formulation DO Shalom Ball Work Phone: [facility] 04-21-2021 influenza virus vaccine, split virus (incl. purified surface antigen) Shalom Mainor Other [employer] Other 04-21-2021 influenza virus vaccine, unspecified formulation DO Shalom Ball Work Phone: [facility] 10-26-2020 COVID-19 mRNA-1273 (Moderna) DO Shalom Ball Work Phone: [facility] 09-29-2020 COVID-19 mRNA-1273 (Moderna) DO Shalom Ball Work Phone: [facility] 05-10-2020 influenza virus vaccine, split virus (incl. purified surface antigen) Shalom Ball Other [employer] Other 05-10-2020 influenza virus vaccine, unspecified formulation DO Shalom Ball Work Phone: [facility] 05-28-2019 influenza virus vaccine, split virus (incl. purified surface antigen) Shalom Ball Other [facility] Other 05-28-2019 influenza virus vaccine, unspecified formulation DO Shalom Hayward Work Phone: [facility] 06-02-2018 influenza virus vaccine, split virus (incl. purified surface antigen) Shalom Hayward Other [facility] Other 06-02-2018 influenza virus vaccine, unspecified formulation DO Shalom Hayward Work Phone: [facility] 06-06-2017 influenza virus vaccine, split virus (incl. purified surface antigen) Shalom Hayward Other [facility] Other 06-06-2017 influenza virus vaccine, unspecified formulation DO Shalom Hayward Work Phone: [facility] 06-19-2016 influenza virus vaccine, split virus (incl. purified surface antigen) Shalom Hayward Other [facility] Other 06-19-2016 influenza virus vaccine, unspecified formulation DO Shalom [employer] Work Phone: [facility] 06-07-2016 pneumococcal conjuga te vaccine, 13 valent Shalom Hayward Other [facility] 05-05-2015 influenza virus vaccine, split virus (incl. purified surface antigen) Shalom Hayward Other [facility] Other 05-05-2015 influenza virus vaccine, unspecified formulation DO Shalom Hayward Work Phone: [facility] 04-27-2015 diphtheria, tetanus toxoids and acellular pertussis vaccine, unspecified formulation Shalom Hayward Other [facility] 02-02-2015 pneumococcal polysaccharide vaccine, 23 valent Shalom Hayward Other [facility] 04-16-2012 tetanus and diphther ia toxoids, adsorbed, preservative free, for adult use (5 Lf of tetanus toxoid and 2 Lf of diphtheria toxoid) Shalom Hayward Other [facility] 04-10-2000 diphtheria, tetanus toxoids and acellular pertussis vaccine, unspecified formulation Shalom Ball Other [facility] Payers Date Payer Category Payer Self-pay [id number] 2014 Medicare MEDICARE MEDICAR E RAILROAD [id number] 2014-Present [phone] [address] [address] [place] [address] [id number] 1959 Medicare [id number] 1959 Unknown [id number] 1950 Unknown [id number] 1949 Unknown [id number] 1949 Unknown [id number] 1949 Unknown [id number] [id number] 1949 Unknown [id number] 2.16.840.1.634985.3.579.2.593 1949 Unknown [id number] [id number] 1949 Unknown [id number] 2.16.840.1.445433.3.579.2.593 1949 Unknown [id number] 2.16.840.1.778141.3.579.2.593 1949 Unknown [id number] 2.16.840.1.914968.3.579.2.593 1949 Unknown [id number] 2.16.840.1.458304.3.579.2.593 1949 Unknown [id number] 2.16.840.1.263123.3.579.2.593 1949 Unknown [id number] 2.16.840.1.169085.3.579.2.593 Unknown [id number] 2.16.840.1.088574.3.579.2.531 Unknown [id number] [id number] Unknown [id number] Social History Date Type Detail Facility Start: 08-09-2022 End: 03-12-2023 Tobacco smoking status MEIS Ex-smoker (finding) [facility] Start: 1950 Sex Assigned At Female F [facility] Start: 01-14-2019 Sex Assigned At N [facility] [email or web address] Other Start: 05-15-2023 End: 04-14-[address] [facility] Never smoked tobacco (finding) [facility] Tobacco smoking status [facility] Tobacco smoking consumption unknown [facility] Start: 01-14-2019 History of Social function [facility] Childcare Unknown [facility] Start: 1950 Sex Assigned At Not on file [facility] [employer] [facility] Medical Equipment Procedure Code Equipment Code Equipment Origin al Text Equipment Identifier Dates Capsule endoscopy, for patency of lumen evaluation Video capsule endoscopy system ()[id number] [facility] Start: 01-07-2020 Capsule endoscopy, for patency of lumen evaluation Video capsule endoscopy system ()[id number] [facility] Start: 06-22-2021 Goals Date Patient Goal Desired Activity /State Clinical Notes 01-01-2020 to 11-04-2023 Telephone Encounter - [facility] Artis, [facility] - 11/04/2023 2:11 PM EDTTelephone Encounter - [facility], [facility] - 11/04/2023 2:11 PM EDTTelephone Encounter - [facility] Artis, [facility] - 11/04/2023 2:11 PM EDT Note Date & Type Note Facility 11-04-2023 Miscellaneous Notes Formattin g of this note might be different from the original. ----- Message from Parish Mckeon DO sent at 2023 3:39 PM EDT ----- Please let pt. Know that she has esophageal erosions. I will send rx to pharmacy and she needs repeat scope in 6- 8 weeks. Please schedule.She needs to be on Omeprazole 40 mg bid but I couldn't e scribe. Can you help? ThanksDr. Del Rosario Spoke with patient regarding pathology results. Patient verbally understood with no further questions. A follow up appointment was scheduled on 12/09/23 to schedule a repeat EGD with Dr. Mckeon. documented in this encounter [facility] 11-04-2023 Telephone encount er Note ----- Message from Parish Mckeon DO sent at 2023 3:39 PM EDT ----- Please let pt. Know that she has esophageal erosions. I will send rx to pharmacy and she needs repeat scope in 6- 8 weeks. Please schedule.She needs to be on Omeprazole 40 mg bid but I couldn't e scribe. Can you help? Thanks, Dr. Del Rosario [facility] 11-04-2023 Telephone encount er Note Spoke with patient regarding pathology results. Patient verbally understood with no further questions. A follow up appointment was scheduled on 12/09/23 to schedule a repeat EGD with Dr. Mckeon. [facility] 08-27-2023 Evaluation note Encounter Date Diagnosis Assessment Notes Aug, Pernicious anemia (ICD-10 - D51.0) [employer] Other 01-10-2024 Evaluation note* Encounter Date Diagnosis [...] of medications Aug, Macromastia (ICD-10 - N62) [employer] Other 01-02-2024 Evaluation note* Encounter Date Diagnosis [...] results. Aug, Abdominal pain (ICD-10 - R10.9) [employer] Other 11-09-2023 Progress note Author Taina Toussaint [facility] June 13, 2023 3:08pm Note Date/Time June 13, 2023 1 :12pm [facility] [place] [address] Hem/Onc Follow Up Note - OP Signed Patient: Janine Conde MR#: [id number] : 1950 Acct:[id number] Age/Sex: 72 / F Type: REG RCR [...] Injectafer in November/January/March 2023. Followup labs at [facility] show hemoglobin 8.4 with iron saturation [...] symptoms. She notes she was admitted at [facility] end of September for anemia and [...] 1 on 11/30/2021. Most recent laboratories from [facility] dated 08/06/2022 reveal hemoglobin - 10.7; ferritin- [...] withactivities and her most recent labs at [facility] 06/04/2022 showed hemoglobin 11.7 with serum iron [...] that time. On review, her labs from [facility] reveal hgb 9.0 and iron saturation 5%. We will plan for repeat Feraheme x 2 doses and will follow-up in 6 weeks again for repeat labs 11/24/2021: She is here for follow-up today and transfer of followup (previouslyfollowed by Dr. Anam Abarca). She reports improved energy since most recent RBC transfusion and iron infusions at [place] but persistent fatigue. She still has episodes [...] No iron panel was reported. Labs from [facility] 11/22/2021 with improved hemoglobin to 9.4 but still low iron saturation 3.9% and ferritin 20. 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 Followup with [facility] in 6 weeks to review iron studies after Feraheme 510mg x 2 doses and Octreotide LAR 20mg IM monthly. 10/24/2021 (YAZAN Chan) her energy is much improved after receiving Feraheme in September at [facility] she has her labs done at [facility] as well, none done this month [...] Depressed Mood [-], Anxiety [-], Stressed [-] [facility] - History Attestation statement: The following information [...] CMP 01/19/21 09:05 01/01/20 11:27 Outside Labs: [facility] outside labs 04/24/2023: Hemoglobin 8.4 iron saturation [...] have her follow-up in 6 weeks with [facility] and will plan for repeatiron studies and [...] admitted for 2-3 days with anemia at [facility] and received transfusional support. Current labs [...] for coordination of care (as documented) and [id number] counseling of patient and/or family. Dictated By: Taina Toussaint MD DD/ 1310 Signed By: <Electronically signed by MD Taina Toussaint> 06/13/23 1508 [facility] Work Phone: 1(929) 633-602810-20-2023 Evaluation note* Encounter Date Diagnosis Assessment Notes Treatment Notes Treatment Clinical Notes May, Pernicious anemia (ICD-10 - D51.0) [facility] Other 10-11-2023 [facility]* Encounter Date Diagnosis Assessment Notes Treatment Notes Treatment Clinical Notes May, Hiatal hernia (ICD-10 - K44.9) May, Chronic Freedom ulcer (ICD-10 - K25.7) [facility] Other 10-03-2023 Evaluation note* Encounter Date Diagnosis Assessment Notes Treatment Notes Treatment Clinical Notes May, Iron deficiency anemia (ICD-10 - D50.9) Pt to repeat EGD- push enteroscopy Pt to start clonadine low dose 0.1mg- half a pill bid Retrieve lab results from Dr. Toussaint [facility] Other 09-23-2023 Progress note Author Taina Toussaint [facility] April 27, 2023 7:53pm Note Date/Time April 26, 2023 1:10pm [facility] at [address] [address] Hem/Onc Follow Up Note - OP Signed Patient: Janine Conde MR#: [id number] : 1950 Acct:[id number] Age/Sex: 72 / F Type: REG RCR [...] Injectafer in November/January/March 2023. Followup labs at [facility] show hemoglobin 8.4 with iron saturation [...] symptoms. She notes she was admitted at [facility] end of September for anemia and [...] 1 on 11/30/2021. Most recent laboratories from [facility] dated 08/06/2022 reveal hemoglobin - 10.7; ferritin- [...] withactivities and her most recent labs at [facility] 06/04/2022 showed hemoglobin 11.7 with serum iron [...] that time. On review, her labs from [facility] reveal hgb 9.0 and iron saturation 5%. We will plan for repeat Feraheme x 2 doses and will follow-up in 6 weeks again for repeat labs 11/24/2021: She is here for follow-up today and transfer of followup (previouslyfollowed by Dr. Anam Abarca). She reports improved energy since most recent RBC transfusion and iron infusions at [facility] but persistent fatigue. She still has episodes [...] No iron panel was reported. Labs from [facility] 11/22/2021 with improved hemoglobin to 9.4 but still low iron saturation 3.9% and ferritin 20. 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 Followup with [facility] in 6 weeks to review iron studies after Feraheme 510mg x 2 doses and Octreotide LAR 20mg IM monthly. 10/24/2021 (YAZAN Chan) her energy is much improved after receiving Feraheme in September at [facility] she has her labs done at [facility] as well, none done this month [...] 09:05 01/01/20 11:27 Outside Labs: Labs at [facility]: 04/24/2023: WBC 5800, Hg 8.4, Hct [...] have her follow-up in 6 weeks with [facility] and will plan for repeatiron studies and [...] admitted for 2-3 days with anemia at [facility] and received transfusional support. Current labs [...] for coordination of care (as documented) and [id number] counseling of patient and/or family. Dictated By: Tiana Toussaint MD DD/ 1309 Signed By: <Electronically signed by MD Taina Toussaint> 04/27/231952 [facility] Work Phone: 1(953) 591-203909-20-2023 Evaluation note* Encounter Date Diagnosis Assessment Notes Treatment Notes Treatment Clinical Notes Apr, Pernicious anemia (ICD-10 - D51.0) [employer] Other 08-08-2023 Progress note Author Shiela Chan [facility] March 12, 2023 3:30pm Note Date/Time March 12, 2023 1:3 3pm [place] [address] Hem/Onc Follow Up Note - OP Signed Patient: Janine Conde MR#: [id number] : 1950 Acct:[id number] Age/Sex: 72 / F Type: REG RCR [...] of the small bowel 04/28/2021 follow-up in [facility]: o FeraHeme 510 mg IV o Repeat Iron Studies, CBC, Ferritin in 1 month o Follow-up in [address] Rivera at [facility] September 2021 follow-up labs at [facility] with again low iron saturation at 3.5%, ferritin 15 and hemoglobin 6.6. She received 2 doses of Feraheme as well as 2 unitsPRBCs at [facility] 10/24/2021: She feels much better after [...] have her follow-up in 6 weeks with [facility] and will plan for repeat iron studies [...] 1 on 11/30/2021. Most recent laboratories from [facility] dated 08/06/2022 reveal hemoglobin - 10.7; ferritin- [...] admitted for 2-3 days with anemia at [facility] and received transfusional support. Current labs [...] symptoms. She notes she was admitted at [facility] end of September for anemia and [...] 1 on 11/30/2021. Most recent laboratories from [facility] dated 08/06/2022 reveal hemoglobin - 10.7; ferritin- [...] withactivities and her most recent labs at [facility] 06/04/2022 showed hemoglobin 11.7 with serum iron [...] that time. On review, her labs from [facility] reveal hgb 9.0 and iron saturation 5%. We will plan for repeat Feraheme x 2 doses and will follow-up in 6 weeks again for repeat labs 11/24/2021: She is here for follow-up today and transfer of followup (previouslyfollowed by Dr. Anam Abarca). She reports improved energy since most recent RBC transfusion and iron infusions at [facility] but persistent fatigue. She still has episodes [...] No iron panel was reported. Labs from [facility] 11/22/2021 with improved hemoglobin to 9.4 but still low iron saturation 3.9% and ferritin 20. 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 Followup with [facility] in 6 weeks to review iron studies [...] improved after receiving Feraheme in September at [facility] she has her labs done at [facility] as well, none done this month [...] symptoms. She notes she was admitted at [facility] end of September for anemia and [...] for coordination of care (as documented) and [id number]-sj-yxry counseling of patient and/or family. [facility] - Medical History Medical History: Medical History [...] <Electronically signed by SONIA Chan> 03/12/[address] [facility] Work Phone: 1(960) 329-539607-13-2023 Evaluation note* Encounter Date Diagnosis Assessment Notes Treatment Notes Treatment Clinical Notes Feb, Pernicious anemia (ICD-10 - D51.0) [employer] Other 06-06-2023 Progress note Author Shiela Chan [facility] January 08, 2023 2:18pm Note Date/Time January 08, 2023 2:14p m [facility] [place] [address] Hem/Onc Follow Up Note - OP Signed Patient: Janine Conde MR#: [id number] : 1950 Acct:[id number] Age/Sex: 72 / F Type: REG RCR Copies to: Shalom Hayward,DO Ricky Benson MD~ Date of Service: 01/08/2023 Time of [...] of the small bowel 04/28/2021 follow-up in [place]: o FeraHeme 510 mg IV o Repeat Iron Studies, CBC, Ferritin in 1 month o Follow-up in [address] Rivera at [facility] September 2021 follow-up labs at [facility] with again low iron saturation at 3.5%, ferritin 15 and hemoglobin 6.6. She received 2 doses of Feraheme as well as 2 units PRBCs at [facility] 10/24/2021: She feels much better after [...] have her follow-up in 6 weeks with [facility] and will plan for repeat iron studies [...] 1 on 11/30/2021. Most recent laboratories from [facility] dated 08/06/2022 reveal hemoglobin - 10.7; ferritin- [...] admitted for 2-3 days with anemia at [facility] and received transfusional support. Current labs [...] symptoms. She notes she was admitted at [facility] end of September for anemia and [...] 1 on 11/30/2021. Most recent laboratories from [facility] dated 08/06/2022 reveal hemoglobin - 10.7; ferritin- [...] withactivities and her most recent labs at [facility] 06/04/2022 showed hemoglobin 11.7 with serum iron [...] that time. On review, her labs from [facility] reveal hgb 9.0 and iron saturation 5%. We will plan for repeat Feraheme x 2 doses and will follow-up in 6 weeks again for repeat labs 11/24/2021: She is here for follow-up today and transfer of followup (previouslyfollowed by Dr. Anam Abarca). She reports improved energy since most recent RBC transfusion and iron infusions at [facility] but persistent fatigue. She still has episodes [...] No iron panel was reported. Labs from [facility] 11/22/2021 with improved hemoglobin to 9.4 but still low iron saturation 3.9% and ferritin 20. 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 Followup with [facility] in 6 weeks to review iron studies [...] improved after receiving Feraheme in September at [facility] she has her labs done at [facility] as well, none done this month [...] symptoms. She notes she was admitted at [facility] end of September for anemia and [...] for coordination of care (as documented) and vgwu-[id number] counseling of patient and/or family. [facility] - Medical History Medical History: Medical History [...] DD/ 1413 Signed By: <Electronically signed by SONIA Shiela Chan> 01/08/23 1418 [facility] Work Phone: 1(553) 703-500605-09-2023 Evaluation note* Encounter Date Diagnosis Assessment Notes Treatment Notes Treatment Clinical Notes December, Pernicious anemia (ICD-10 - D51.0) [employer] Other 04-17-2023 Evaluation note* Encounter Date Diagnosis [...] anxiety disorder (ICD-10 - F10.280) Continue abstinence [facility] [employer] Other 04-12-2023 Progress note Author Shiela Chna [facility] November 14, 2022 2:04pm Note Date/Time November 07, 2022 11:4 5am [facility] [place] [address] Hem/Onc Follow Up Note - OP Signed Patient: Janine Conde MR#: [id number] : 1950 Acct:[id number] Age/Sex: 72 / F Type: REG RCR [...] symptoms. She notes she was admitted at [facility] end of September for anemia and [...] 1 on 11/30/2021. Most recent laboratories from [facility] dated 08/06/2022 reveal hemoglobin - 10.7; ferritin- [...] withactivities and her most recent labs at [facility] 06/04/2022 showed hemoglobin 11.7 with serum iron [...] that time. On review, her labs from [facility] reveal hgb 9.0 and iron saturation 5%. We will plan for repeat Feraheme x 2 doses and will follow-up in 6 weeks again for repeat labs 11/24/2021: She is here for follow-up today and transfer of followup (previouslyfollowed by Dr. Anam Abarca). She reports improved energy since most recent RBC transfusion and iron infusions at [facility] but persistent fatigue. She still has episodes [...] No iron panel was reported. Labs from [facility] 11/22/2021 with improved hemoglobin to 9.4 but still low iron saturation 3.9% and ferritin 20. 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 Followup with [facility] in 6 weeks to review iron studies [...] improved after receiving Feraheme in September at [facility] she has her labs done at [facility] as well, none done this month [...] & no additional complaints except as documented [facility] - Medical History Medical History: Medical History [...] of the small bowel 04/28/2021 follow-up in [facility]: o FeraHeme 510 mg IV o Repeat Iron Studies, CBC, Ferritin in 1 month o Follow-up in [address] Rivera at [facility] September 2021 follow-up labs at [facility] with again low iron saturation at 3.5%, ferritin 15 and hemoglobin 6.6. She received 2 doses of Feraheme as well as 2 units PRBCs at [facility] 10/24/2021: She feels much better after [...] have her follow-up in 6 weeks with [facility] and will plan for repeat iron studies [...] 1 on 11/30/2021. Most recent laboratories from [facility] dated 08/06/2022 reveal hemoglobin - 10.7; ferritin- [...] admitted for 2-3 days with anemia at [facility] and received transfusional support. Current labs [...] for coordination of care (as documented) and zkxp-ns-unen counseling of patient and/or family. Dictated By: Shiela Chan APRN DD/ 1144 Signed By: <Electronically signed by KITCHEN HAND Shiela Chan> 11/14/22 1404 [facility] Work Phone: [phone]) 423-944004-03-2023 Evaluation note* Encounter Date Diagnosis Assessment Notes Treatment Notes Treatment Clinical Notes Nov, Pernicious anemia (ICD-10 - D51.0) [employer] Other 03-22-2023 Evaluation note* Encounter Date Diagnosis [...] d exercise and weight loss A1C yearly [employer] Other 03-08-2023 Evaluation note* Encounter Date Diagnosis [...] risk of cirrhosis, gastritis, bleeding tendancies etc [employer] Other 02-28-2023 Evaluation note* Encounter Date Diagnosis Assessment Notes Treatment Notes Treatment Clinical Notes Sep, Pernicious anemia (ICD-10 - D51.0) [facility] Other 01-05-2023 Progress note Author [facility]rudis [place] [facility] August 09, 2022 2:19pm Note Date/Time August 09, 2022 2: 03pm [facility] [place] [id number] Hem/Onc Follow Up Note - OP Signed Patient: Janine Conde MR#: [id number] : 1950 Acct:[id number] Age/Sex: 71 / F Type: REG RCR Copies to: Shalom Hayward,DO Ricky Benson MD~ Subjective Date/Time of Service: Date of [...] 1 on 11/30/2021. Most recent laboratories from [facility] dated 08/06/2022 reveal hemoglobin - 10.7; ferritin- [...] withactivities and her most recent labs at [facility] 06/04/2022 showed hemoglobin 11.7 with serum iron [...] that time. On review, her labs from [facility] reveal hgb 9.0 and iron saturation 5%. We will plan for repeat Feraheme x 2 doses and will follow-up in 6 weeks again for repeat labs 11/24/2021: She is here for follow-up today and transfer of followup (previouslyfollowed by Dr. Anam Abarca). She reports improved energy since most recent RBC transfusion and iron infusions at [facility] but persistent fatigue. She still has episodes [...] No iron panel was reported. Labs from [facility] 11/22/2021 with improved hemoglobin to 9.4 but still low iron saturation 3.9% and ferritin 20. 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 Followup with [facility] in 6 weeks to review iron studies [...] improved after receiving Feraheme in September at [facility] she has her labs done at [facility] as well, none done this month [...] Depressed Mood [-], Anxiety [-], Stressed [-] [facility] - Medical History Medical History: Medical History [...] of the small bowel 04/28/2021 follow-up in [facility]: o FeraHeme 510 mg IV o Repeat Iron Studies, CBC, Ferritin in 1 month o Follow-up in [address] Rivera at [facility] September 2021 follow-up labs at [facility] with again low iron saturation at 3.5%, ferritin 15 and hemoglobin 6.6. She received 2 doses of Feraheme as well as 2 units PRBCs at [facility] 10/24/2021: She feels much better after [...] have her follow-up in 6 weeks with [facility] and will plan for repeat iron studies [...] 1 on 11/30/2021. Most recent laboratories from [facility] dated 08/06/2022 reveal hemoglobin - 10.7; ferritin- [...] for coordination of care (as documented) and fuwk-jv-uemw counseling of patient and/or family. Dictated By: Gertrudis Louis APRN DD/ 1350 Signed By: <Electronically signed by SONIA Louis> 08/09/[address] [facility] Work Phone: 1(571) 917-379611-02-2022 Progress note Author Taina Toussaint [facility] June 06, 2022 10:30am Note Date/Time June 06, 2022 1 0:03am [facility] [place] [address] Hem/Onc Follow Up Note - OP Signed Patient: Janine Conde MR#: [id number] : 1950 Acct:[id number] Age/Sex: 71 / F Type: REG RCR [...] activities and her most recent labs at [facility] 06/04/2022 showed hemoglobin 11.7 with serum iron [...] that time. On review, her labs from [facility] reveal hgb 9.0 and iron saturation 5%. We will plan for repeat Feraheme x 2 doses and will follow-up in 6 weeks again for repeat labs 11/24/2021: She is here for follow-up today and transfer of followup (previouslyfollowed by Dr. Anam Abarca). She reports improved energy since most recent RBC transfusion and iron infusions at [facility] but persistent fatigue. She still has episodes [...] No iron panel was reported. Labs from [facility] 11/22/2021 with improved hemoglobin to 9.4 but still low iron saturation 3.9% and ferritin 20. 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 Followup with [facility] in 6 weeks to review iron studies [...] improved after receiving Feraheme in September at [facility] she has her labs done at [facility] as well, none done this month [...] Depressed Mood [-], Anxiety [-], Stressed [-] [facility] - History Attestation statement: The following information [...] 01/01/20 11:27 Outside Labs: 06/04/2022 labs at [facility]: White blood cells 5800, hemoglobin 11.7, hematocrit [...] of the small bowel 04/28/2021 follow-up in [facility]: o FeraHeme 510 mg IV o Repeat Iron Studies, CBC, Ferritin in 1 month o Follow-up in [address] Rivera at [facility] September 2021 follow-up labs at [facility] with again low iron saturation at 3.5%, ferritin 15 and hemoglobin 6.6. She received 2 doses of Feraheme as well as 2 units PRBCs at [facility] 10/24/2021: She feels much better after [...] have her follow-up in 6 weeks with [facility] and will plan for repeat iron studies [...] currently has no s/s of bleeding. 02/15/2022, 06-26: Will continue repletion of Feraheme and re-evaluate. [...] for coordination of care (as documented) and defm-ud-sfak counseling of patient and/or family. Dictated By: Taina Toussaint MD DD/ 1002 Signed By: <Electronically signed by MD Taina Toussaint> 06/06/22 1030 [facility] Work Phone: [phone]) [phone] Progress note Author Gertrudis Louis [facility] February 15, 2022 2:17pm Note Date/Time February 15, 2022 2:10 pm [facility] [place] at [address] [address] Hem/Onc Follow Up Note - OP Signed Patient: Janine Conde MR#: William [id number] : 1950 Acct:[id number] Age/Sex: 71 / F Type: REG RCR Copies to: Shalom Hayward,DO Ricky Benson MD~ Subjective Date/Time of Service: Date of [...] that time. On review, her labs from [facility] reveal hgb 9.0 and iron saturation 5%. We will plan for repeat Feraheme x 2 doses and will follow-up in 6 weeks again for repeat labs 11/24/2021: She is here for follow-up today and transfer of followup (previouslyfollowed by Dr. Anam Abarca). She reports improved energy since most recent RBC transfusion and iron infusions at [facility] but persistent fatigue. She still has episodes [...] No iron panel was reported. Labs from [facility] 11/22/2021 with improved hemoglobin to 9.4 but still low iron saturation 3.9% and ferritin 20. 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 Followup with [facility] in 6 weeks to review iron studies after Feraheme 510mg x 2 doses and Octreotide LAR 20mg IM monthly. 04/28/21 (Dr. Anam Abarca) feels ok today, energy stable denies any bleeding, denies ice cravings continues to take PPI daily, hemorrhoids under control denies any lightheadedness iron continues to be low, so will recommend updated scopes 10/24/2021 (YAZAN Cahn) her energy is much improved after receiving Feraheme in September at [facility] she has her labs done at [facility] as well, none done this month [...] Depressed Mood [-], Anxiety [-], Stressed [-] [facility] - Medical History Medical History: Medical History [...] of the small bowel 04/28/2021 follow-up in [facility]: o FeraHeme 510 mg IV o Repeat Iron Studies, CBC, Ferritin in 1 month o Follow-up in [address] Rivera at [facility] September 2021 follow-up labs at [facility] with again low iron saturation at 3.5%, ferritin 15 and hemoglobin 6.6. She received 2 doses of Feraheme as well as 2 units PRBCs at [facility] 10/24/2021: She feels much better after [...] have her follow-up in 6 weeks with [facility] and will plan for repeat iron studies [...] recent Feraheme x 2 doses on X 14 2021 and 01/23/2022. Hemoglobin levels improved from [...] for coordination of care (as documented) and oxit-rl-ndoe counseling of patient and/or family. Dictated By: Gertrudis Louis APRN DD/ 1409 Signed By: <Electronically signed by SONIA Louis> 02/15/[address] [facility] Work Phone: [phone]) 410-661906-03-2022 Progress note Author Shiela Chan [facility] January 05, 2022 12:28pm Note Date/Time January 05, 2022 11:52 am [facility] at [address] [address] Hem/Onc Follow Up Note - OP Signed Patient: Janine Conde MR#: [id number] : 1950 Acct:[id number] Age/Sex: 71 / F Type: REG RCR [...] that time. On review, her labs from [facility] reveal hgb 9.0 and iron saturation 5%. We will plan for repeat Feraheme x 2 doses and will follow-up in 6 weeks again for repeat labs 11/24/2021: She is here for follow-up today and transfer of followup (previouslyfollowed by Dr. Anam Abarca). She reports improved energy since most recent RBC transfusion and iron infusions at [facility] but persistent fatigue. She still has episodes [...] No iron panel was reported. Labs from [facility] 11/22/2021 with improved hemoglobin to 9.4 but still low iron saturation 3.9% and ferritin 20. 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 Followup with [facility] in 6 weeks to review iron studies [...] improved after receiving Feraheme in September at [facility] she has her labs done at [facility] as well, none done this month [...] & no additional complaints except as documented [facility] - Medical History Medical History: Medical History [...] of the small bowel 04/28/2021 follow-up in [place]: o FeraHeme 510 mg IV o Repeat Iron Studies, CBC, Ferritin in 1 month o Follow-up in [address] Rivera at [facility] September 2021 follow-up labs at [facility] with again low iron saturation at 3.5%, ferritin 15 and hemoglobin 6.6. She received 2 doses of Feraheme as well as 2 units PRBCs at [facility] 10/24/2021: She feels much better after [...] have her follow-up in 6 weeks with [facility] and will plan for repeat iron studies [...] for coordination of care (as documented) and vcbz-fq-esyg counseling of patient and/or family. Dictated By: Shiela Chan APRN DD/ 1151 Signed By: <Electronically signed by SONIA Chan> 01/05/[address] [facility] Work Phone: [phone]) [phone] Progress note Author Taina Toussaint [facility] November 25, 2021 2:17pm Note Date/Time November 24, 2021 11: 39am [facility] [place] [address] Hem/Onc Follow Up Note - OP Signed Patient: Janine Conde MR#: [id number] : 1950 Acct:[id number] Age/Sex: 71 / F Type: REG RCR [...] recent RBC transfusion and iron infusions at [facility] but persistent fatigue. She still has episodes [...] No iron panel was reported. Labs from [facility] 11/22/2021 with improved hemoglobin to 9.4 but still low iron saturation 3.9% and ferritin 20. 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 Followup with [facility] in 6 weeks to review iron studies [...] improved after receiving Feraheme in September at [facility] she has her labs done at [facility] as well, none done this month [...] Depressed Mood [-], Anxiety [-], Stressed [-] [facility] - History Attestation statement: The following information [...] CMP 01/19/21 09:05 01/01/20 11:27 Outside Labs: [facility] labs: 11/22/2021: WBC 4800, Hg 9.4, [...] of the small bowel 04/28/2021 follow-up in [place]: o FeraHeme 510 mg IV o Repeat Iron Studies, CBC, Ferritin in 1 month o Follow-up in [address] Rivera at [facility] September 2021 follow-up labs at [facility] with again low iron saturation at 3.5%, ferritin 15 and hemoglobin 6.6. She received 2 doses of Feraheme as well as 2 units PRBCs at [facility] 10/24/2021: She feels much better after [...] have her follow-up in 6 weeks with [facility] and will plan for repeat iron studies [...] for coordination of care (as documented) and ayil-nj-rewc counseling of patient and/or family. Dictated By: Taina Toussaint MD DD/ 1138 Signed By: <Electronically signed by MD Taina Toussaint> 11/25/21 1417 [facility] Work Phone: 1(509) 238-698303-22-2022 Progress note Author Shiela Chan [facility] October 24, 2021 2:26pm Note Date/Time October 24, 2021 2:0 8pm [facility] [place] [address] Hem/Onc Follow Up Note - OP Signed Patient: Janine Conde MR#: [id number] : 1950 Acct:[id number] Age/Sex: 70 / F Type: REG RCR [...] improved after receiving feraheme in September at [facility] she has her labs done at [facility] as well, none done this month [...] & no additional complaints except as documented [facility] - Medical History Medical History: Medical History [...] of the small bowel 04/28/2021 follow-up in [place]: o FeraHeme 510 mg IV o Repeat Iron Studies, CBC, Ferritin in 1 month o Follow-up in [address] rivera at [facility] September 2021 follow-up labs at [facility] with again low iron saturation at 3.5%, ferritin 15 and hemoglobin 6.6. She received 2 doses of Feraheme as well as 2 units PRBCs at [facility] 10/24/2021: She feels much better after [...] for coordination of care (as documented) and qkfv-sn-xeou counseling of patient and/or family. Dictated By: Shiela Chan APRN DD/ 1408 Signed By: <Electronically signed by SONIA Chan> 10/24/21 1426 [facility] Work Phone: 1([phone]) 168-999610-02-2021 Progress note Author Francesco Solano [facility] May 05, 2021 11:24pm Note Date/Time April 28, 2021 12:03pm [facility] [place] [address] Hem/Onc Follow Up Note - OP Signed Patient: Janine Conde MR#: [id number] : 1950 Acct:[id number] Age/Sex: 70 / F Type: REG RCR Copies to: Shalom Hayward,DO Ricky Benson MD~ Date of Service: 04/28/2021 Time of Service: 12:02 - Assessment & Plan (1) Iron deficiency anemia Plan: 70 year old female with chronic iron deficiency most likely secondary to poor oral iron absorption. She has required recurrent IV iron infusions throughout the last year and is again iron deficient. we recommended she consider repeat EGD/COLONOSCOPY. to follow-up in [place]: o FeraHeme 510 mg IV o Repeat Iron Studies, CBC, Ferritin in 1 month o Follow-up in [address] rivera at [facility] (2) B12 deficiency Plan: She is getting B12 injection monthly with PCP. (3) Hiatal hernia (4) Obesity, morbid, BMI 40.0-49.9 Follow Up Instructions: cbc, iron studies, ferritin in [facility] 1mo iv iron in [place] follow up in [facility] in 1 month I, Vamshi Solano DO have seen and evaluated this patient [...] for coordination of care (as documented) and qipt-jb-nflv counseling of patient and/or family. [facility] - Medical History Medical History: Medical History [...] ointment 1 applic TOPICAL DAILY #30 g 07/09/20 [Rx Confirmed 04/28/21] Dictated By: Shiela Yates APRN DD/ 1202 Signed By: <Electronically signed by SONIA Yates> 04/28/21 1222 <Electronically signed by Francesco Solano II, DO> 05/05/21 1578 [facility] Work Phone: 1(907) 494-514006-17-2021 Progress note Author Nghia Lizarraga [facility] January 19, 2021 10:59am Note Date/Time January 19, 2021 10:4 6am [facility] [place] [address] Hem/Onc Follow Up Note - OP Signed Patient: Janine Conde MR#: [id number] : 1950 Acct:[id number] Age/Sex: 70 / F Type: REG RCR [...] Depressed Mood [-], Anxiety [-], Stressed [-] [facility] - Medical History Medical History: Medical History [...] % (Auto) 24.0 % (.) 01/19/21 09:05 Pender % (Auto) 9.1 % (.) 01/19/21 09:05 Eos % (Auto) 2.2 % (.) 01/19/21 09:05 Baso % (Auto) 2.1 % (.) 01/19/21 09:05 Neut # (Auto) 2.5 x10E3/uL (1.8-7.7) 01/19/21 09:05 Lymph # (Auto) 1.0 x10E3/uL (1.00-4.8) 01/19/21 09:05 Pender # (Auto) 0.4 x10E3/uL (0.0-0.8) 01/19/21 09:05 [...] Ovalocytes Slight 01/19/21 09:05 PHA Creatinine Clear [id number] 01/01/20 11:27 Sodium 137 mmol/L (136-146) 01/01/20 [...] pH 6.5 (5.0-9.0) 01/11/20 15:16 Ur Specific P[place] 1.009 (1.001-1.030) 01/11/20 15:16 Urine Protein Negative [...] for coordination of care (as documented) and kdml-tf-xhns counseling of patient and/or family. Dictated By: Nghia Lizarraga MD DD/ 1045 Signed By: <Electronically signed by Nghia Lizarraga MD> 01/19/21 1059 [facility] Work Phone: 1([phone]) 675-130304-20-2021 Progress note Author Anam Abarca [facility] November 22, 2020 2:25pm Note Date/Time November 22, 2020 2:2 4pm [facility] [place] [id number] Hem/Onc Follow Up Note - OP Signed Patient: Janine Conde MR#: [id number] : 1950 Acct:[id number] Age/Sex: 70 / F Type: REG RCR [...] MUSCULOSKELETAL: No back pain, or joint pain. [facility] - Medical History Medical History: Medical History [...] for coordination of care (as documented) and moup-ln-sfrl counseling of patient and/or family. Dictated By: Anam Abarca MD DD/ 22 Signed By: <Electronically signed by Anam Abarca MD> 11/22/[address] [facility] Work Phone: 1(200) 951-774902-04-2021 Progress note Author Anam Abarca [facility] September 08, 2020 1:41pm Note Date/Time September 08, 2020 1 :41pm [facility] [place] [address] Hem/Onc Follow Up Note - OP Signed Patient: Janine Conde MR#: [id number] : 1950 Acct:[id number] Age/Sex: 69 / F Type: REG RCR [...] MUSCULOSKELETAL: No back pain, or joint pain. [facility] - Medical History Medical History: Medical History [...] for coordination of care (as documented) and csbb-za-elan counseling of patient and/or family. Dictated By: Anam Abarca MD DD/ 1339 Signed By: <Electronically signed by Anam Abarca MD> 09/08/[address] [facility] Work Phone: 1([phone]) 577-601312-04-2020 Progress note Author Anam Abarca [facility] July 08, 2020 12:39pm Note Date/Time July 08, 2020 1 1:53am [facility] [place] [address] Hem/Onc Follow Up Note - OP Signed with Addenda Patient: Janine Conde MR#: [id number] : 1950 Acct:[id number] Age/Sex: 69 / F Type: REG RCR [...] MUSCULOSKELETAL: No back pain, or joint pain. [facility] - Medical History Medical History: Medical History [...] was for coordination of care(as documented) and xefs-ap-pngf counseling of patient and/or family. Dictated By: Anam Abarca MD DD/ 1152 Signed By: <Electronically signed by Anam Abarca MD> 07/08/[address] [facility] Work Phone: 1([phone]) 931-767511-06-2020 Progress note Author Anam Abarca [facility] June 10, 2020 1:38pm Note Date/Time June 10, 2020 1 :29pm [facility] at [address] [address] Hem/Onc Follow Up Note - OP Signed Patient: Janine Conde MR#: [id number] : 1950 Acct:[id number] Age/Sex: 69 / F Type: REG RCR Copies to: DO Ricky Jordan MD~ Subjective Date/Time of Service: Date of Service: 06/10/2020 Time of Service: 13:25 Chief Complaint: Follow up after inpt stay HPI: Mrs. Conde returns for an earlier follow-up. She feels well. She presented to [facility] on 06/07/2020 for profound fatigue, found to [...] MUSCULOSKELETAL: No back pain, or joint pain. [facility] - Medical History Medical History: Medical History [...] was for coordination of care(as documented) and qzcc-md-uxsv counseling of patient and/or family. Dictated By: Anam Abarca MD DD/ 1325 Signed By: <Electronically signed by Anam Abarca MD> 06/10/[address] [facility] Work Phone: 1([phone]) 505-498509-03-2020 Progress note Author Anam Abarca [facility] April 07, 2020 1:21pm Note Date/Time April 07, 2020 1:17pm [facility] [place] [address] Hem/Onc Follow Up Note - OP Signed Patient: Janine Conde MR#: [id number] : 1950 Acct:[id number] Age/Sex: 69 / F Type: REG RCR [...] MUSCULOSKELETAL: No back pain, or joint pain. [facility] - Medical History Medical History: Medical History [...] was for coordination of care(as documented) and lrbq-lv-hyra counseling of patient and/or family. Dictated By: Anam Abarca MD DD/ 1316 Signed By: <Electronically signed by Anam Abarca MD> 04/07/20 1321 [facility] Work Phone: 1([phone]) 143-941307-09-2020 Progress note Author Anam Abarca [facility] February 11, 2020 2:44pm Note Date/Time February 11, 2020 1:59p m [facility] [place] [address] Hem/Onc Follow Up Note - OP Signed Patient: Janine Conde MR#: [id number] : 1950 Acct:[id number] Age/Sex: 69 / F Type: REG RCR [...] MUSCULOSKELETAL: No back pain, or joint pain. [facility] - Medical History Medical History: Medical History [...] for coordination of care (as documented) and [id number] counseling of patient and/or family. Dictated By: Anam Abarca MD DD/ [id number] Signed By: <Electronically signed by Anam Abarca MD> 02/11/[address] [facility] Work Phone: [phone] 562-478905-29-2020 Consult note Author Anam Abarca [facility] January 01, 2020 12:16pm Note Date/Time January 01, 2020 12:04 pm [facility] [place] [address] Hem/Onc Consult Note - OP Signed Patient: Janine Conde MR#: [id number] : 1950 Acct:[id number] Age/Sex: 69 / F Type: REG RCR [...] lady, who developed iron deficiency anemia in 2018. She was hospitalized at [facility] last June, EGD revealed 2 small duodenal ulcers, colonoscopy was normal. She received PRBC transfusions, as well as IV iron with Ferric gluconate. During the same hospital stay she was found to have a subsegmental PE, placed onanticoagulation for 3 months. Her CBC on 12/10/2019 revealed hemoglobin 7.2, she received 2 units of PRBC transfusion at [facility]. She is currently taking oral iron every [...] is currently receiving B12 supplement IM monthly. [facility] - Medical History Medical History: Medical History [...] 7 Days 01/01/20 11:27: PHA Creatinine Clear [id number], Sodium 137, Potassium 4.4, Chloride 107, Carbon [...] she is open to it. 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 - Time with Patient Coordination of Care & Counseling Time: Greater than 50% of time spent with patient was for coordination of care (as documented) and [id number] counseling of patient and/or family. Dictated By: Anam Abarca MD DD/ [id number] Signed By: <Electronically signed by Anam Abarca MD> 01/01/[address] [facility] Work Phone: Evaluation note* Diagnosis Onset Date Resolution Status Skin lesion acute Angiodysplasia of small intestine chronic B12 deficiency chronic Hiatal hernia chronic Iron deficiency anemia chron ic Obesity, morbid, BMI 40.0-49.9 [facility] Work Phone: Evaluation noteNo [employer] Other Evaluation note* Diagnosis Onset Date Resolution Status Skin lesion acute Angiodysplasia of small intestine chronic B12 deficiency chronic Chronic Freedom ulcer chroni c Hiatal hernia chronic Iron deficiency anemia chron ic Obesity, morbid, BMI 40.0-49.9 [facility] Work Phone: Evaluation note* Diagnosis Onset Date Resolution Status Angiodysplasia of small intestine chronic B12 deficiency chronic Chronic Freedom ulcer chroni c Hiatal hernia chronic Obesity, morbid, BMI 40.0-49.9 chronic YARI (generalized anxiety disorder) acute Gastritis due to Helicobacter species acute H. pylori infection acute Iron deficiency anemia due to chronic blood loss acute [facility] Work Phone: evaluation note* Diagnosis Onset Date Resolution Status Angiodysplasia of small intestine chronic B12 deficiency chronic Chronic Freedom ulcer chroni c Hiatal hernia chronic Obesity, morbid, BMI 40.0-49.9 chronic Abnormal findings on esophagogastroduodenoscopy (EGD) acute YARI (generalized anxiety disorder) acute Gastritis due to Helicobacter species acute H. pylori infection acute Iron deficiency anemia due to chronic blood loss acute [facility] Work Phone: evaluation note* Diagnosis Onset Date Resolution Status Abnormal findings on esophagogastroduodenoscopy (EGD) acute YARI (generalized anxiety disorder) acute Gastritis due to Helicobacter species acute H. pylori infection acute Iron deficiency anemia due to chronic blood loss acute Angiodysplasia of small intestine chronic B12 deficiency chronic Chronic Freedom ulcer chroni c Hiatal hernia chronic Obesity, morbid, BMI 40.0-49.9 [facility] Work Phone: evaluation note* Diagnosis Onset Date Resolution Status Abnormal findings on esophagogastroduodenoscopy (EGD) acute YARI (generalized anxiety disorder) acute Gastritis due to Helicobacter species acute H. pylori infection acute Iron deficiency anemia due to chronic blood loss acute Iron deficiency anemia due to chronic blood loss acute Angiodysplasia of small intestine chronic B12 deficiency chronic Chronic Freedom ulcer chroni c Hiatal hernia chronic Obesity, morbid, BMI 40.0-49.9 chronic [facility] Work Phone: evaluation note* Diagnosis Onset Date Resolution Status Abnormal findings on esophagogastroduodenoscopy (EGD) acute YARI (generalized anxiety disorder) acute Gastritis due to Helicobacter species acute H. pylori infection acute Iron deficiency anemia due to chronic blood loss acute Iron deficiency anemia due to chronic blood loss acute Angiodysplasia of small intestine chronic B12 deficiency chronic Chronic Freedom ulcer chroni c Hiatal hernia chronic Obesity, morbid, BMI 40.0-49.9 chronic Chronic Freedom ulcer chroni c Hiatal hernia acute [facility] Work Phone: Evaluation note* Diagnosis Onset Date Resolution Status Iron deficiency anemia due to chronic blood loss acute Angiodysplasia of small intestine chronic B12 deficiency chronic Chronic Freedom ulcer chroni c Hiatal hernia chronic Obesity, morbid, BMI 40.0-49.9 chronic Hiatal hernia acute Iron deficiency anemia due to chronic blood loss acute Chronic Freedom ulcer chroni c [facility] Work Phone: Evaluation note* Diagnosis Onset Date Resolution Status Hiatal hernia acute Iron deficiency anemia due to chronic blood loss acute Chronic Freedom ulcer chroni c Angiodysplasia of small intestine chronic B12 deficiency chronic Chronic Freedom ulcer chroni c Hiatal hernia chronic Obesity, morbid, BMI 40.0-49.9 chronic Chronic Freedom ulcer acute Hiatal hernia acute Iron deficiency anemia due to chronic blood loss acute [facility] Work Phone: Evaluation note* Diagnosis Onset Date Resolution Status Hiatal hernia acute Iron deficiency anemia due to chronic blood loss acute Angiodysplasia of small intestine chronic Hiatal hernia chronic Obesity, morbid, BMI 40.0-49.9 chronic Chronic Freedom ulcer acute Hiatal hernia acute Iron deficiency anemia due to chronic blood loss acute Angiodysplasia of small intestine chronic YARI (generalized anxiety disorder) acute GERD (gastroesophageal reflux disease) acute Iron deficiency anemia due to chronic blood loss acute Pernicious anemia acute Primary hypertension acute Obesity, morbid, BMI 40.0-49.9 chronic Medicare annual wellness visit, subsequent noneactive Screening mammogram for breast cancer noneactive [facility] Work Phone: History general Narrative - Reported* Type Description Date Medical History high cholesterol Medical History anxiety Medical History sleep disorder/insomnia Surgical History bunionectomy left foot Surgical History total hysterectomy Surgical History cholecystectomy Surgical History T&A Surgical History Oral Surgery Hospitalization History GI bleeding 06/2019 [facility] Other History general Narrative - Reported* Type Description Date [...] Surgical History total hysterectomy Surgical History cholecystectomy 2009 Surgical History T&A Surgical History Oral Surgery Surgical History COLONOSCOPY Surgical History EGD Hospitalization History GI bleeding 06/2019 [facility] Other Hisneyt general Narrative - [facility] Other Hisuvfo general Narrative - Reported* Type Description Date [...] enteroscopy 05/2023 Hospitalization History GI bleeding 06/2019 [facility] Other Hospital Discharge instructions Additional Instructions DISCHARGE [...] NOT operate machinery such as power tools, lawn mowers, snow blowers, sewing machines, etc. -Avoid [...] if you have any problems. -Office number [phone] Work Phone: InstructionsNot on filedocumented in this encounter [facility]Not on filedocumented in this encounter [facility] System[facility]ructionsNot on filedocumented in this encounter [facility] note Author Gertrudis Louis [facility] August 09, 2022 2:19pm Note Date/Time August 09, 2022 2: 03pm [facility] at [address] [address] Hem/Onc Follow Up Note - OP Signed Patient: Janine Conde MR#: [id number] : 1950 Acct:[id number] Age/Sex: 71 / F Type: REG RCR [...] 1 on 11/30/2021. Most recent laboratories from [facility] dated 08/06/2022 reveal hemoglobin - 10.7; ferritin- [...] withactivities and her most recent labs at [facility] 06/04/2022 showed hemoglobin 11.7 with serum iron [...] that time. On review, her labs from [facility] reveal hgb 9.0 and iron saturation 5%. We will plan for repeat Feraheme x 2 doses and will follow-up in 6 weeks again for repeat labs 11/24/2021: She is here for follow-up today and transfer of followup (previouslyfollowed by Dr. Anam Abarca). She reports improved energy since most recent RBC transfusion and iron infusions at [place] but persistent fatigue. She still has episodes [...] No iron panel was reported. Labs from [facility] 11/22/2021 with improved hemoglobin to 9.4 but still low iron saturation 3.9% and ferritin 20. 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 Followup with [facility] in 6 weeks to review iron studies [...] improved after receiving Feraheme in September at [facility] she has her labs done at [facility] as well, none done this month [...] Depressed Mood [-], Anxiety [-], Stressed [-] [facility] - Medical History Medical History: Medical History [...] of the small bowel 04/28/2021 follow-up in [place]: o FeraHeme 510 mg IV o Repeat Iron Studies, CBC, Ferritin in 1 month o Follow-up in [address] Rivera at [facility] September 2021 follow-up labs at [facility] with again low iron saturation at 3.5%, ferritin 15 and hemoglobin 6.6. She received 2 doses of Feraheme as well as 2 units PRBCs at [facility] 10/24/2021: She feels much better after [...] have her follow-up in 6 weeks with [facility] and will plan for repeat iron studies [...] 1 on 11/30/2021. Most recent laboratories from [facility] dated 08/06/2022 reveal hemoglobin - 10.7; ferritin- [...] for coordination of care (as documented) and [id number] counseling of patient and/or family. Dictated By: Gertrudis Louis APRN DD/ [id number] Signed By: <Electronically signed by SONIA Louis> 08/09/22 1416 [facility] Work Phone: Progress note Author [facility]a [facility] January 08, 2023 2:18pm Note Date/Time January 08, 2023 2:14p m [facility] [place] [address] Hem/Onc Follow Up Note - OP Signed Patient: Janine Conde MR#: [id number] : 1950 Acct:[id number] Age/Sex: 72 / F Type: REG RCR [...] of the small bowel 04/28/2021 follow-up in [place]: o FeraHeme 510 mg IV o Repeat Iron Studies, CBC, Ferritin in 1 month o Follow-up in [address] Rivera at [facility] September 2021 follow-up labs at [facility] with again low iron saturation at 3.5%, ferritin 15 and hemoglobin 6.6. She received 2 doses of Feraheme as well as 2 units PRBCs at [facility] 10/24/2021: She feels much better after [...] have her follow-up in 6 weeks with [facility] and will plan for repeat iron studies [...] 1 on 11/30/2021. Most recent laboratories from [facility] dated 08/06/2022 reveal hemoglobin - 10.7; ferritin- [...] admitted for 2-3 days with anemia at [facility] and received transfusional support. Current labs [...] symptoms. She notes she was admitted at [facility] end of September for anemia and [...] 1 on 11/30/2021. Most recent laboratories from [facility] dated 08/06/2022 reveal hemoglobin - 10.7; ferritin- [...] withactivities and her most recent labs at [facility] 06/04/2022 showed hemoglobin 11.7 with serum iron [...] that time. On review, her labs from [facility] reveal hgb 9.0 and iron saturation 5%. We will plan for repeat Feraheme x 2 doses and will follow-up in 6 weeks again for repeat labs 11/24/2021: She is here for follow-up today and transfer of followup (previouslyfollowed by Dr. Anam Abarac). She reports improved energy since most recent RBC transfusion and iron infusions at [facility] but persistent fatigue. She still has episodes [...] No iron panel was reported. Labs from [place] 11/22/2021 with improved hemoglobin to 9.4 but still low iron saturation 3.9% and ferritin 20. 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 Followup with [facility] in 6 weeks to review iron studies [...] improved after receiving Feraheme in September at [facility] she has her labs done at [facility] as well, none done this month [...] symptoms. She notes she was admitted at [facility] end of September for anemia and [...] for coordination of care (as documented) and [id number] counseling of patient and/or family. [facility] - Medical History Medical History: Medical History [...] 01/08/23] Dictated By: Shiela Chan APRN DD/ 12 Signed By: <Electronically signed by SONIA Chan> 01/08/[address] [facility] Work Phone: Progress note Author Shiela Chan [facility] March 12, 2023 3:30pm Note Date/Time March 12, 2023 1:3 3pm [facility] [place] [address] Hem/Onc Follow Up Note - OP Signed Patient: Janine Conde MR#: [id number] : 1950 Acct:[id number] Age/Sex: 72 / F Type: REG RCR [...] of the small bowel 04/28/2021 follow-up in [place]: o FeraHeme 510 mg IV o Repeat Iron Studies, CBC, Ferritin in 1 month o Follow-up in [address] Rivera at [facility] September 2021 follow-up labs at [facility] with again low iron saturation at 3.5%, ferritin 15 and hemoglobin 6.6. She received 2 doses of Feraheme as well as 2 unitsPRBCs at [facility] 10/24/2021: She feels much better after [...] have her follow-up in 6 weeks with [facility] and will plan for repeat iron studies [...] 1 on 11/30/2021. Most recent laboratories from [facility] dated 08/06/2022 reveal hemoglobin - 10.7; ferritin- [...] admitted for 2-3 days with anemia at [facility] and received transfusional support. Current labs [...] symptoms. She notes she was admitted at [facility] end of September for anemia and [...] 1 on 11/30/2021. Most recent laboratories from [facility] dated 08/06/2022 reveal hemoglobin - 10.7; ferritin- [...] withactivities and her most recent labs at [facility] 06/04/2022 showed hemoglobin 11.7 with serum iron [...] that time. On review, her labs from [facility] reveal hgb 9.0 and iron saturation 5%. We will plan for repeat Feraheme x 2 doses and will follow-up in 6 weeks again for repeat labs 11/24/2021: She is here for follow-up today and transfer of followup (previouslyfollowed by Dr. Anam Abarca). She reports improved energy since most recent RBC transfusion and iron infusions at [place] but persistent fatigue. She still has episodes [...] No iron panel was reported. Labs from [place] 11/22/2021 with improved hemoglobin to 9.4 but still low iron saturation 3.9% and ferritin 20. 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 Followup with [facility] in 6 weeks to review iron studies [...] improved after receiving Feraheme in September at [facility] she has her labs done at [facility] as well, none done this month [...] symptoms. She notes she was admitted at [facility] end of September for anemia and [...] for coordination of care (as documented) and [id number] counseling of patient and/or family. [facility] - Medical History Medical History: Medical History [...] <Electronically signed by SONIA Chan> 03/12/[address] [facility] Work Phone: Progress note Author Shiela Chan [facility] August 13, 2023 1:27pm Note Date/Time August 13, 2023 1: 13pm [facility] [place] [address] Hem/Onc Follow Up Note - OP Signed Patient: Janine Conde MR#: [id number] : 1950 Acct:[id number] Age/Sex: 72 / F Type: REG RCR [...] have her follow-up in 6 weeks with [facility] and will plan for repeat iron studies [...] admitted for 2-3 days with anemia at [facility] and received transfusional support. Current labs [...] Injectafer in November/January/March 2023. Followup labs at [facility] show hemoglobin 8.4 with iron saturation [...] symptoms. She notes she was admitted at [facility] end of September for anemia and [...] 1 on 11/30/2021. Most recent laboratories from [facility] dated 08/06/2022 reveal hemoglobin - 10.7; ferritin- [...] withactivities and her most recent labs at [facility] 06/04/2022 showed hemoglobin 11.7 with serum iron [...] that time. On review, her labs from [facility] reveal hgb 9.0 and iron saturation 5%. We will plan for repeat Feraheme x 2 doses and will follow-up in 6 weeks again for repeat labs 11/24/2021: She is here for follow-up today and transfer of followup (previouslyfollowed by Dr. Anam Abarca). She reports improved energy since most recent RBC transfusion and iron infusions at [place] but persistent fatigue. She still has episodes [...] No iron panel was reported. Labs from [place] 11/22/2021 with improved hemoglobin to 9.4 but still low iron saturation 3.9% and ferritin 20. 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 Followup with [facility] in 6 weeks to review iron studies after Feraheme 510mg x 2 doses and Octreotide LAR 20mg IM monthly. 10/24/2021 (YAZAN Chan) her energy is much improved after receiving Feraheme in September at [facility] she has her labs done at [facility] as well, none done this month [...] for coordination of care (as documented) and [id number] counseling of patient and/or family. [facility] - Medical History Medical History: Medical History [...] <Electronically signed by SONIA Chan> 08/13/[address] [facility] Work Phone: Summary Purpose Family History Relationship Condition Age at Onset Recorded Date/T rojelio Not Specified Pancreatitis Unknown Diabetes mellitus Unknown father Pulmonary emphysema Unknown Relationship Condition Age at Onset Recorded Date/T rojelio Not Specified Pancreatitis Unknown Diabetes mellitus Unknown father Pulmonary emphysema Unknown brother Malignant neoplasm Unknown Unknown father Diabetes mellitus Unknown Hypertension Unknown Heart disease Unknown Not Specified Diabetes mellitus Unknown sister Malignant neoplasm Unknown Relationship Condition Age at Onset Recorded Date/T rojelio mother Pancreatitis Unknown Diabetes mellitus Unknown father Pulmonary emphysema Unknown brother Malignant neoplasm Unknown Unknown father Diabetes mellitus Unknown Hypertension Unknown Heart disease Unknown mother Diabetes mellitus Unknown sister Malignant neoplasm Unknown Advance Directives Advance Directive Response Recorded Date/ Time Advance Directives No June 9:19pm Advance Directive Response Recorded Date/ Time Advance Directives No June 10:19pm Advance Directive Response Recorded Date/ Time Advance Directives No April 3:47pm Chief Complaint and Reason for Visit Chief [...] anemia Obesity, morbid, BMI 40.0-49.9 Chief Complaint Follow Up Egd Iron Def, anemia 6 Month Follow Up B-12 SHOT Unknown Reason for Visit Skin lesion Angiodysplasia of small intestine B12 deficiency Chronic Freedom ulcer Hiatal hernia Iron deficiency anemia Obesity, morbid, BMI 40.0-49.9 Chief Complaint Iron Def, anemia 6 Month Follow Up B-12 SHOT Unknown Amb Documentation Amb Documentation follow up Reason for Visit Angiodysplasia of sm all intestine B12 deficiency Chronic Freedom ulcer Hiatal hernia Obesity, morbid, BMI 40.0-49.9 YARI (generalized anxiety disorder) Gastritis due to Helicobacter species H. pylori infection Iron deficiency anemia due to chronic blood loss Chief Complaint Iron Def, anemia 6 Month Follow Up B-12 SHOT Unknown Amb Documentation Amb Documentation follow up B-12 SHOT Reason for Visit Angiodysplasia of sm all intestine B12 deficiency Chronic Freedom ulcer Hiatal hernia Obesity, morbid, BMI 40.0-49.9 Abnormal findings on esophagogastroduodenoscopy (EGD) YARI (generalized anxiety disorder) Gastritis due to Helicobacter species H. pylori infection Iron deficiency anemia due to chronic blood loss Chief Complaint B-12 SHOT Unknown Amb Documentation Amb Documentation follow up B-12 SHOT Iron Def, anemia Reason for Visit Abnormal findings on esophagogastroduodenoscopy (EGD) YARI (generalized anxiety disorder) Gastritis due to Helicobacter species H. pylori infection Iron deficiency anemia due to chronic blood loss Angiodysplasia of small intestine B12 deficiency Chronic Freedom ulcer Hiatal hernia Obesity, morbid, BMI 40.0-49.9 Chief Complaint B-12 SHOT Unknown Amb Documentation Amb Documentation follow up B-12 SHOT Iron Def, anemia b12 Reason for Visit Abnormal findings on esophagogastroduodenoscopy (EGD) YARI (generalized anxiety disorder) Gastritis due to Helicobacter species H. pylori infection Iron deficiency anemia due to chronic blood loss Iron deficiency anemia due to chronic blood loss Angiodysplasia of small intestine B12 deficiency Chronic Freedom ulcer Hiatal hernia Obesity, morbid, BMI 40.0-49.9 Chief Complaint Unknown Amb Documentation Amb Documentation follow up B-12 SHOT Iron Def, anemia b12 4 MONTH F/U-FREEDOM ULCER/IRON DEF ANEMIA Reason for Visit Abnormal findings on esophagogastroduodenoscopy (EGD) YARI (generalized anxiety disorder) Gastritis due to Helicobacter species H. pylori infection Iron deficiency anemia due to chronic blood loss Iron deficiency anemia due to chronic blood loss Angiodysplasia of small intestine B12 deficiency Chronic Freedom ulcer Hiatal hernia Obesity, morbid, BMI 40.0-49.9 Chronic Freedom ulcer Hiatal hernia Chief Complaint B-12 SHOT Iron Def, anemia b12 4 MONTH F/U-FREEDOM ULCER/IRON DEF ANEMIA b12 shot Reason for Visit Iron deficiency anem ia due to chronic blood loss Angiodysplasia of small intestine B12 deficiency Chronic Freedom ulcer Hiatal hernia Obesity, morbid, BMI 40.0-49.9 Hiatal hernia Iron deficiency anemia due to chronic blood loss Chronic Rfeedom ulcer Chief Complaint b12 4 MONTH F/U-FREEDOM ULCER/IRON DEF ANEMIA b12 shot Iron Def, anemia 3 Month Follow Up Reason for Visit Hiatal hernia Iron deficiency anemia due to chronic blood loss Chronic Freedom ulcer Angiodysplasia of small intestine B12 deficiency Chronic Freedom ulcer Hiatal hernia Obesity, morbid, BMI 40.0-49.9 Chronic Freedom ulcer Hiatal hernia Iron deficiency anemia due to chronic blood loss Chief Complaint b12 4 MONTH F/U-FREEDOM ULCER/IRON DEF ANEMIA b12 shot Iron Def, anemia 3 Month Follow Up Medicare Wellness/ B12 shot Reason for Visit Hiatal hernia Iron deficiency anemia due to chronic blood loss Angiodysplasia of small intestine Hiatal hernia Obesity, morbid, BMI 40.0-49.9 Chronic Freedom ulcer Hiatal hernia Iron deficiency anemia due to chronic blood loss Angiodysplasia of small intestine YARI (generalized anxiety disorder) GERD (gastroesophageal reflux disease) Iron deficiency anemia due to chronic blood loss Pernicious anemia Primary hypertension Obesity, morbid, BMI 40.0-49.9 Medicare annual wellness visit, subsequent Screening mammogram for breast cancer Chief Complaint 4 MONTH F/U-FREEDOM ULCER/IRON DEF ANEMIA b12 shot Iron Def, anemia 3 Month Follow Up Medicare Wellness/ B12 shot B12 shot/flu Reason for Visit Hiatal hernia Iron deficiency anemia due to chronic blood loss Angiodysplasia of small intestine Hiatal hernia Obesity, morbid, BMI 40.0-49.9 Chronic Freedom ulcer Hiatal hernia Iron deficiency anemia due to chronic blood loss Angiodysplasia of small intestine YARI (generalized anxiety disorder) GERD (gastroesophageal reflux disease) Iron deficiency anemia due to chronic blood loss Pernicious anemia Primary hypertension Obesity, morbid, BMI 40.0-49.9 Medicare annual wellness visit, subsequent Screening mammogram for breast cancer Reason for Referral Reason Mrs. Conde is bein g referred for breast reduction surgery Diagnosis 1 Macromastia (N62) Referral Organization [facility] Mainor boucher Referring Provider First Name Shalom Referring Provider Last Name Mainor Referring Provider Specialty Internal Me dicine Referred Organization [facility] Address [address],[place], [place],[address] Referred Provider Specialty Plastic and Reconstructive Surgery [...] section and content) DATE CREATED AUTHOR 04/17/2022 [facility] DATE CREATED AUTHOR AUTHOR'S ORGANIZ ATION 11/10/2022 [facility] pital DATE CREATED AUTHOR AUTHOR'S ORGANIZ ATION 02/19/2024 [facility] Care Teams (unrecognized sec tion and content) Team Status: Active Member Role Status Dates Shalom Hayward DO Primary Care Provider Active Team Status: Inactive Member Role Status Dates Shalom Hayward DO Primary Care Provider Active Start: November 07, 2023 End: November 07, 2023 Kiara Ortiz MD Attending Provider Active St art: November 07, 2023 End: November 07, 2023 Team Status: Inactive Member Role Status Dates Shalom Hayward DO Primary Care Provider Active Start: November 12, 2023 End: November 12, 2023 Shiela Chan APRN Attending Provider Acti ve Start: November 12, 2023 End: November 12, 2023 Team Status: Active Member Role Status Dates Shalom Hayward DO Primary Care Provider Active Start: November 26, 2023 Ricky Benson MD Referring Provider Active Start: November 26, 2023 Taina Toussaint MD Active Start: November 26, 2023 Shiela Chan APRN Attending Provider Acti ve Start: November 26, 2023 Team Status: Inactive Member Role Status Dates Shalom Hayward DO Primary Care Provide r, Attending Provider Active Start: December 26, 2023 End: December 26, 2023 Team Status: Inactive Member Role Status Dates Shalom Hayward DO Primary Care Provider Active Start: January 16, 2024 End: January 16, 2024 Manuela Mann DO Attending Provider Active St art: January 16, 2024 End: January 16, 2024 Team Status: Inactive Member Role Status Dates Shalom Hayward DO Primary Care Provide r, Attending Provider Active Start: February 04, 2024 End: February 04, 2024 Team Status: Active Member Role Status Dates Shalom Hayward DO Primary Care Provide r, Attending Provider Active Start: October 21, 2023 Team Status: Inactive Member Role Status Dates Shalom Hayward DO Primary Care Provider Active Start: October 21, 2023 End: October 21, 2023 Parish Mckeon DO Attending Provider Active Start: October 21, 2023 End: October 21, 2023 Team Status: Active Member Role Status Dates Shalom Hayward DO Primary Care Provide r, Attending Provider Active Start: October 22, 2023 Team Status: Active Member Role Status Dates Shalom Hayward DO Primary Care Provider Active Start: October 24, 2023 ANI Lopez Attending Provider Active St art: October 24, 2023 Team Status: Active Member Role Status Dates Shalom Hayward DO Primary Care Provider Active Start: October 29, 2023 ANI Hawkins Attending Provider Active Start : October 29, 2023 Team Status: Inactive Member Role Status Yasmany Hayward DO Primary Care Provide r, Attending Provider Active Start: November 05, 2023 End: November 05, 2023 Team Status: Inactive Member Role Status Yasmany Hayward DO Primary Care Provide r, Attending Provider Active Start: October 02, 2023 End: October 02, 2023 Team Status: Active Member Role Status Dates Shalom Hayward DO Primary Care Provider Active Start: November 12, 2023 Ricky Benson MD Referring Provider Active Start: November 12, 2023 Taina Toussaint MD Active Start: November 12, 2023 Shiela Chan APRN Attending Provider Acti ve Start: November 12, 2023 Team Status: Active Member Role Status Yasmany Hayward DO Primary Care Provider Active Start: August 13, 2023 Ricky Benson MD Referring Provider Active Start: August 13, 2023 Taina Toussaint MD Attending Provider Active Start: August 13, 2023 Team Status: Inactive Member Role Status Dates Shalom Hayward DO Attending Provider Active Sta rt: August 14, 2023 End: August 14, 2023 Team Status: Inactive Member Role Status Dates Ricky Benson MD Attending Provider Active Start: August 06, 2023 End: August 06, 2023 Team Status: Active Member Role Status Yasmany Hayward DO Primary Care Provider Active Ricky Benson MD Referring Provider Active Taina Toussaint MD Attending Provider Active Team Status: Inactive Member Role Status Dates Shalom Hayward DO Primary Care Provider Active Ricky Benson MD Attending Provider Active Salvage Engineer Relationship Specialty Start Date End Date Shalom Hayward DO [address] [place] [id number] PCP - General Internal Medicine 10/23/23 Salvage Engineer Relationship Specialty Start Date End Date Shalom Hayward DO [address] [place] [id number] PCP - General Internal Medicine 10/23/23 Salvage Engineer Relationship Specialty Start Date End Date Shalom Hayward DO [address] [place] [id number] PCP - General Internal Medicine 10/23/23 Salvage Engineer Relationship Specialty Start Date End Date Shalom Hayward DO [address] [place] [id number] PCP - General Internal Medicine 10/23/23 Salvage Engineer Relationship Specialty Start Date End Date Shalom Hayward DO [address] [place] [id number] PCP - General Internal Medicine 10/23/23 Team Status: Active Member Role Status Dates Shalom Hayward DO Primary Care Provider Active Start: February 13, 2024 Ricky Benson MD Referring Provider Active Start: February 13, 2024 Taina Toussaint MD Active Start: February 022023 Shiela Chan APRN Attending Provider Acti ve Start: February 13, 2024 Team Status: Inactive Member Role Status Dates Shalom Hayward DO Primary Care Provider Active Start: February 13, 2024 End: February 13, 2024 Taina Toussaint MD Attending Provider Active Start: February 13, 2024 End: February 13, 2024 Team Status: Inactive Member Role Status Dates Shalom Hayward DO Primary Care Provide r, Attending Provider Active Start: March 09, 2024 End: March 09, 2024 Team Status: Inactive Member Role Status Dates Shalom Hayward , DO Primary Care Provide r, Attending Provider Active Start: April 14, 2024 End: April 14, 2024 Goals (unrecognized section and content) Goals may be documented in a n alternate sectionNo InformationNo InformationNo InformationNo InformationNo InformationNo InformationNo InformationNo InformationNo InformationNo InformationNo InformationNo InformationNo InformationNo InformationNo InformationNo InformationNo InformationNo InformationNo InformationNo InformationNot on filedocumented as of this encounterNot on filedocumented as of this encounterNot on filedocumented as of this encounterNot on filedocumented as of this encounterNot on filedocumented as of this encounterNot on filedocumented as of this encounterNot on filedocumented as of this encounter REASON FOR VISIT (unrecogniz ed section and content) [id number] [facility] follow upCHECK UPMedication ChangeB-12 Shot6 WEEK FOLLOW [id number] here at the request of Shiela Chan NP for iron deficiency anemiaNo InformationNo [id number] SHOTPatient here for follow up EGD6 month [...] BE BASED ON THE PRIMARY CLINICAL RECORDS. [employer] provides no warranty or guarantee of the accuracy or completeness of information in this document.
[2024-05-15 15:12] LABS: Basophils Absolute Auto 0.1 10^3/uL (0.0-0.1); Eosinophils Absolute Auto 0.1 10^3/uL (0.0-0.7); Eosinophils Percent Auto 1.9 % (0.9-7.0); Hematocrit 32.8 % (36.0-48.0); Hemoglobin 9.8 g/dL (12.0-16.0); Immature Granulocytes Abs Auto 0.01 10^3/uL (0.00-0.03); Immature Granulocytes Pct Auto 0.1 % (0.0-0.5); Lymphocytes Percent Auto 15.2 % (20.5-60.0); Mean Corpuscular HGB Conc 29.9 g/dL (29.9-35.2); Mean Corpuscular Hemoglobin 28.9 pg (26.7-34.0); Mean Corpuscular Volume 96.8 fL (81.0-99.0); Mean Platelet Volume 10.3 fL (9.5-13.5); Monocytes Absolute Auto 0.4 10^3/uL (0.3-0.8); Monocytes Percent Auto 6.4 % (1.7-12.0); Neutrophils Absolute Auto 5.2 10^3/uL (1.4-6.5); Neutrophils Percent Auto 75.4 % (43.0-75.0); Platelet Count 288 10^3/uL (150-450); Red Blood Count 3.39 10^6/uL (4.20-5.40); Red Cell Distribution Width 13.2 % (11.0-15.0); White Blood Count 6.9 10^3/uL (4.0-11.0)
[2024-05-15 15:31] LABS: Percent Iron Saturation 8.6 %
== END 2024-05-15 14:57 | disposition home or self-care (01) ==
LOC: LAB 14:57
PROVIDERS: PCP Internal Medicine
DX: D50.0 Iron deficiency anemia secondary to blood loss (chronic) (principal)
CPT/HCPCS: 36415; 82728; 83540; 83550; 85025

== ENCOUNTER 2024-08-11 13:59 | Outpatient (OUT) | payer MEDICARE, SELFPAY ==
[2024-08-11 14:39] LABS: Basophils Absolute Auto 0.1 10^3/uL (0.0-0.1); Basophils Percent Auto 1.2 % (0.2-2.0); Eosinophils Absolute Auto 0.1 10^3/uL (0.0-0.7); Eosinophils Percent Auto 1.9 % (0.9-7.0); Hematocrit 36.6 % (36.0-48.0); Immature Granulocytes Abs Auto 0.03 10^3/uL (0.00-0.03); Immature Granulocytes Pct Auto 0.6 % (0.0-0.5); Lymphocytes Percent Auto 20.7 % (20.5-60.0); Mean Corpuscular HGB Conc 30.1 g/dL (29.9-35.2); Mean Corpuscular Hemoglobin 28.6 pg (26.7-34.0); Mean Corpuscular Volume 95.3 fL (81.0-99.0); Mean Platelet Volume 10.1 fL (9.5-13.5); Monocytes Absolute Auto 0.4 10^3/uL (0.3-0.8); Monocytes Percent Auto 7.4 % (1.7-12.0); Neutrophils Absolute Auto 3.3 10^3/uL (1.4-6.5); Neutrophils Percent Auto 68.2 % (43.0-75.0); Platelet Count 251 10^3/uL (150-450); Red Blood Count 3.84 10^6/uL (4.20-5.40); Red Cell Distribution Width 16.2 % (11.0-15.0); White Blood Count 4.8 10^3/uL (4.0-11.0)
[2024-08-11 14:54] LABS: Alanine Aminotransferase 16 U/L (14-59); Albumin Globulin Ratio 0.9; Alkaline Phosphatase 109 U/L (46-116); Anion Gap 9.5; Aspartate Amino Transferase 11 U/L (15-37); BUN Creatinine Ratio 22.9; Bilirubin Total 0.5 mg/dL (0.2-1.0); Calcium 8.4 mg/dL (8.5-10.1); Carbon Dioxide 26.8 mmol/L (21.0-32.0); Chloride 108 mmol/L (98-107); Estimated GFR (African America >60 (>=60 mL/min/1.73m^2); Estimated GFR (Non-African Ame >60 (>=60 mL/min/1.73m^2); Globulin 3.3 g/dL; Glucose 96 mg/dL (74-106); Potassium 4.3 mmol/L (3.5-5.1); Sodium 140 mmol/L (136-145); Total Protein 6.3 g/dL (6.4-8.2)
[2024-08-11 15:21] LABS: Percent Iron Saturation 15.7 %
== END 2024-08-11 14:00 | disposition home or self-care (01) ==
LOC: LAB 14:00
PROVIDERS: PCP Internal Medicine
DX: D50.0 Iron deficiency anemia secondary to blood loss (chronic) (principal)
CPT/HCPCS: 36415; 80053; 82728; 83540; 83550; 85025

== ENCOUNTER 2024-10-20 13:41 | Outpatient (OUT) | payer MEDICARE, SELFPAY ==
[2024-10-20 14:12] LABS: Basophils Absolute Auto 0.1 10^3/uL (0.0-0.1); Basophils Percent Auto 1.1 % (0.2-2.0); Eosinophils Absolute Auto 0.1 10^3/uL (0.0-0.7); Eosinophils Percent Auto 1.7 % (0.9-7.0); Hematocrit 39.3 % (36.0-48.0); Hemoglobin 12.1 g/dL (12.0-16.0); Immature Granulocytes Abs Auto 0.01 10^3/uL (0.00-0.03); Immature Granulocytes Pct Auto 0.2 % (0.0-0.5); Lymphocytes Percent Auto 18.8 % (20.5-60.0); Mean Corpuscular HGB Conc 30.8 g/dL (29.9-35.2); Mean Corpuscular Hemoglobin 30.6 pg (26.7-34.0); Mean Corpuscular Volume 99.5 fL (81.0-99.0); Monocytes Absolute Auto 0.4 10^3/uL (0.3-0.8); Neutrophils Absolute Auto 3.7 10^3/uL (1.4-6.5); Neutrophils Percent Auto 71.2 % (43.0-75.0); Platelet Count 277 10^3/uL (150-450); Red Blood Count 3.95 10^6/uL (4.20-5.40); White Blood Count 5.3 10^3/uL (4.0-11.0)
[2024-10-20 15:25] LABS: Percent Iron Saturation 14.9 %
== END 2024-10-20 13:42 | disposition home or self-care (01) ==
LOC: LAB 13:43
PROVIDERS: PCP Internal Medicine
DX: D50.0 Iron deficiency anemia secondary to blood loss (chronic) (principal)
CPT/HCPCS: 36415; 82728; 83540; 83550; 85025

== ENCOUNTER 2024-12-31 18:25 | Emergency (ER) | payer MEDICARE, SELFPAY ==
--- OUTSIDE RECORDS SUMMARY | 2024-12-31 18:40 | XMS_ITS | CCD ---
Author Organization [facility] CliniSymn Care Team Providers Care Lead Presser Name Role Phone Dr. Taina Toussaint Attending Unavailable DO Shalom Hayward Primary Care Provider MD Ricky Benson Referring Provider [phone] MD Taina Toussaint Attending Provider [phone] Shalom Hayward Unavailable NORBERT, DR TAINA Thomas Consulting Unavailable BALL, DR MCKEON Primary Care Unavailable NORBERT, DR TAINA Thomas Admitting Unavailable NORBERT, DR TAINA Thomas Attending Unavailable BALL, DR MCKEON Primary Care Unavailable NORBERT, DR TAINA Thomas Admitting Unavailable NORBERT, DR TAINA Thomas Attending Unavailable MISC, DR MAURICIO Consulting Unavailable DAMSCHRODGERTRUDIS SELLERS Attending Unavailable DAMSCHRODER, GERTRUDIS Consulting Unavailable DAMSCHGERTRUDIS POWER Admitting Unavailable BALL, DR MCKEON Primary Care Unavailable NORBERT, DR TAINA Thomas Consulting Unavailable NORBERT, DR TAINA Thomas Admitting Unavailable NORBERT, DR TAINA Thomas Attending Unavailable BALL, DR MCKEON Primary Care Unavailable DAMSCHGERTRUDIS POWER Attending Unavailable BALL, DR MCKEON Referring Unavailable BALL, DR MCKEON Primary Care Unavailable GERTRUDIS LOUIS Admitting Unavailable BALL, DR MCKEON Primary Care Unavailable BALL, DR MCKEON Admitting Unavailable BALL, DR MCKEON Attending Unavailable BALL, DR MCKEON Consulting Unavailable BALL, DR MCKEON Primary Care Unavailable NORBERT, DR TAINA Thomas Consulting Unavailable NORBERT, DR TAINA Thomas Admitting Unavailable NORBERT, DR TAINA Thomas Attending Unavailable BALL, DR [...] Consulting Unavailable DANISH ARMSTRONG Consulting Unavailable ROBIN HERNANEDZ Consulting Unavailable SARAI LUCAS Consulting Unavailable DO Shalom Hayward Primary Care Provider MD Ricky Benson Referring Provider MD Taina Toussaint Attending Provider DO Shalom Hayward Primary Care Provider MD Ricky Benson Referring Provider [phone] MD Taina Toussaint Attending Provider Ricky Benson [phone] DO Shalom Hayward Primary Care Provider MD Ricky Benson Referring Provider MD Taina Toussaint Attending Provider MD Ricky Benson Attending Provider [phone] DO Shalom Hayward Primary Care Provider MD Ricky Benson Attending Provider [phone] MD Ricky Benson Referring Provider MD Taina Toussaint Attending Provider DO Shalom Hayward Primary Care Provider MD Ricky Benson Referring Provider [phone] MD Taina Toussaint Attending Provider [phone] DO Shalom Hayward Primary Care Provider MD Ricky Benson Referring Provider MD Taina Toussaint Attending Provider DO Parish Mckeon Attending Provider DO Shalom Hayward Primary Care Provider MD Ricky Benson Referring Provider SONIA Chan Attending Provider MD Ricky Benson Referring Provider SONIA Chan Attending Provider DO Shalom Hayward Primary Care Provider [phone] DO Shalom Hayward Primary Care Provider MD Ricky Benson Referring Provider Unav ailable SONIA Chan Attending Provider Shalom Hayward DO Primary Care Provider Ricky Benson MD Referring Provider Unav Taina Mandujano MD Attending Provider Shalom Hayward DO Primary Care Provider Shalom Hayward DO Primary Care Provider [phone] Ricky Benson MD Referring Provider Unav ailTaina Solorzano MD Attending Provider Taina Toussaint Admitting Unavailable Taina Toussaint Attending Unavailable Ricky Benson Referring Unavailabl Shalom Rodriguez [facility] Care Unavailable Shalom Hayward DO Primary Care Provider Ricky Benson MD Referring Provider Unav Taina Mandujano MD Attending Provider [phone] Medications Current Medications Medication Drug Class(es) Dates Sig (Normalized) Sig (Original) azithromycin 250 mg oral tablet (1 source) Macrolide Antimicrobial Start: 12-08-2024 Azithromycin 250 mg tablet Active 250 MG PO .COMPLEX 6 December 08, 2024 12:00am 2 tabs on first day followed by 1 tab on days 2-5 busPIRone hydrochloride 5 mg oral tablet (20 sources) Start: 10-25-2023 take 3 tablets by mouth twice daily Buspirone 5 mg tablet Active 15 MG PO Twice daily October 25, 2023 9:37am Start: 10-25-2023 take 15 mg by mouth twice mathew y Buspirone Active 15 MG PO Twice daily October 25, 2023 9:37am Start: 06-22-2021 End: 10-25-2023 take 1 tablet by mouth twice daily Buspirone 5 mg tablet Discontinued 5 MG PO Twice daily June 22, 2021 1:00am October 25, 2023 9:37am Start: 06-20-2019 End: 10-24-2021 take 1 tablet by mouth twice daily Buspirone 15 mg Tablet Discontinued 15 MG PO Twice daily June 20, 2019 1:00am October 24, 2021 1:21pm chlordiazePOXIDE hydrochloride 25 mg oral capsule (20 sources) Benzodiazepine Start: 03-09-2024 take 1 capsule by mouth twice daily as needed for anxiety Chlordiazepoxide Hcl 25 mg capsule Active 25 MG PO Twice daily as needed for anxiety March 09, 2024 12:00am Start: 10-29-2023 End: 11-12-2023 take 1 capsule by mouth twice daily as needed Chlordiazepoxide Hcl 25 mg capsule Discontinued 25 MG PO Twice daily as needed October 29, 2023 12:00am November 12, 2023 [...] sources) Benzodiazepine Start: 06-20-2019 End: 06-23-2019 take 1 tablet by mouth twice daily Clonazepam 0.5 mg Tablet Active 0.5 MG PO Twice daily 0 June 23, 2019 1:52pm ferrous sulfate 325 mg oral tablet (20 sources) Start: 11-19-2024 take 1 tablet by mouth once daily Ferrous Sulfate 325 mg (65 mg iron) tablet Active 325 MG PO Daily November 19, 2024 12:00am Start: 01-01-2020 End: 06-22-2021 take 1 tablet by mouth once daily Ferrous Sulfate 325 mg (65 mg iron) Tablet Discontinued 325 MG PO Daily January 01, 2020 12:00am June 22, 2021 7:20am Start: 06-23-2019 End: 10-20-2019 Ferrous Sulfate 325 mg (65 m g iron) tablet Discontinued 325 MG PO Every 48 hours June 23, 2019 1:00am October 20, 2019 2:58pm omeprazole 40 mg delayed release oral capsule (20 sources) Proton Pump Inhibitor Start: 11-19-2024 Omeprazole 40 mg capsule,delayed release(DR/EC) Active 20 MG PO Daily November 19, 2024 2:53pm Start: 2023 End: 11-19-2024 Omeprazole 40 mg capsule,del ayed release(DR/EC) Discontinued 40 MG PO January 16, 2024 12:00am March 09, 2024 2:22pm Start: 01-01-2020 End: 06-22-2021 take 1 capsule by mouth once daily Omeprazole 20 mg capsule,delayed release(DR/EC) Discontinued 20 MG PO Daily January 01, 2020 12:00am June 22, 2021 7:20am Start: 06-23-2019 End: 10-20-2019 take 40 mg by mouth once daily Omeprazole Discontinued 40 MG PO Daily 60 June 23, 2019 1:00am October 20, 2019 2:58pm thiamine 100 mg oral tablet (7 sources) take 1 tablet by mouth every twenty-four hours Vitamin B-1 100 MG 1 tablet Orally Once a day Active traZODone hydrochloride 100 mg oral tablet (20 sources) Serotonin Reuptake Inhibitor Start: 019 take 1 tablet by mouth at bedtime Trazodone 100 mg Tablet Active 1 TAB PO Bedtime June 20, 2019 1:00am vitamin b12 1 mg/ml injectable solution (2 sources) Vitamin B12 Start: 025 inject 1000 ug by intramuscular injection every month Cyanocobalamin (Vitamin B-12) 1,000 mcg/mL solution Active 1000 MCG IM every month November 19, 2024 12:00am Vitamin D (7 sources) Vitamin D [...] 2:55pm ascorbic acid 1000 mg oral tablet (20 sources) Vitamin C Start: 06-22-2021 End: 01-05-2022 [...] 000 mcg Aug, 1000 mcg Bismuth Subcit S-Seibscqfu-Sav (Pylera) 140-125-125 mg capsule (14 sources) Start: 11-06-2023 End: 01-16-2024 take 3 capsules by mouth once Bismuth Subcit X-Whffuoljx-Kpu (Pylera) 140-125-125 mg capsule Discontinued 3 CAP PO per package directions 120 November 05, 2023 11:00pm January 16, 2024 12:51pm Start: 11-06-2023 End: 01-16-2024 take 3 capsules by mouth once Bismuth Subcit K-Metroni dz-Tcn (Pylera) 140-125-125 mg capsule Discontinued 3 CAP PO per package directions 120 November 06, 2023 12:00am January 16, 2024 1:51pm Start: 11-06-2023 take 3 capsules by mouth once Bismuth Subcit N-Rlmvawrcm-Snd (Pylera) 140-125-125 mg capsule Active 3 CAP PO per package directions 120 November 06, 2023 12:00am cloNIDine hydrochloride 0.1 mg oral tablet (20 sources) Central alpha-2 Adrenergic Agonist Start: 05-07-2023 End: 01-16-2024 take 1 tablet by mouth twice daily Clonidine Hcl 0.1 mg tablet Discontinued 0.1 MG PO Twice daily May 15, 2023 12:00am January 16, 2024 1:54pm Start: 05-07-2023 take 1 tablet by deidra th every twenty-four hours cloNIDine HCl 0.1 MG 1 tablet Orally Once a day May, Active dicyclomine hydrochloride 10 mg oral capsule (20 sources) Anticholinergic Start: 08-06-2023 End: 11-12-2023 take 1 capsule by mouth three times daily as needed Dicyclomine 10 mg capsule Discontinued 10 MG PO Three times daily as needed October 29, 2023 1:25pm November 12, 2023 1:01pm docusate sodium 100 mg oral capsule (20 sources) Start: 06-23-2019 End: 10-20-2019 take 1 capsule by mouth twice daily Docusate Sodium 100 mg capsule Discontinued 100 MG PO Twice daily 60 June 23, 2019 1:00am October 20, 2019 2:57pm famotidine 40 mg oral tablet (20 sources) Histamine-2 Receptor Antagonist Start: 10-25-2023 End: 10-29-2023 take 1 tablet by mouth once daily in the evening Famotidine 40 mg tablet Discontinued 40 MG PO Every evening October 25, 2023 12:00am October 29, 2023 1:26pm take 1 tablet by mouth in the ev ening Famotidine 40 MG Take 1 tablet by mouth in the evening Active lactulose 667 mg/ml oral solution (18 sources) [...] capsules by m outh every six hours Omeprazole 20 mg Capsule,Delayed Release(Dr/Ec) (5 sources) Start: 06-23-2019 End: 10-20-2019 take 2 capsules by mouth once daily Omeprazole 20 mg Capsule,Delayed Release(Dr/Ec) Discontinued 40 MG PO Daily 60 June 23, 2019 1:00am October 20, 2019 2:58pm Start: 06-23-2019 End: 10-20-2019 take 2 capsules by mouth once daily Omeprazole 20 mg Capsule,Delayed Release(/Ec) Discontinued 40 MG PO Daily 60 June [...] pantoprazole 40 mg delayed release oral tablet (20 sources) Proton Pump Inhibitor Start: 05-15-2023 End: 01-16-2024 take 1 tablet by mouth twice daily Pantoprazole 40 mg tablet,delayed release (/YEFRI) Discontinued 40 MG PO Twice daily 60 180 May 15, 2023 12:00am January 16, 2024 1:54pm take 1 tablet by deidra th every twenty-four hours Pantoprazole Sodium 40 MG 1 tablet Orall y Once a day Active sucralfate 1000 mg oral tablet (15 sources) Aluminum Complex Start: 10-29-2023 End: 01-16-2024 take 1 tablet by mouth twice daily Sucralfate 1 gram tablet Discontinued 1 GM PO Twice daily October [...] Corticosteroid Start: 02-11-2020 End: 06-22-2021 Triamcinolone Acetonide 0.1 % Ointment Discontinued 1 APPLIC TOPICAL Daily February 11, 2020 12:00am June 22, 2021 7:16am Triamcinolone Ac etonide 0.1 % 1 application Externally Twice a day Active Triamcinolone Ac etonide 0.1 % 1 application Externally Twice a day Active 24 hr venlafaxine 37.5 mg extended release oral capsule (20 sources) Serotonin and Norepinephrine Reuptake Inhibitor Start: 06-22-2021 End: 10-24-2021 take 1 capsule by mouth once daily Venlafaxine 37.5 mg capsule,extended release 24hr Discontinued 37.5 MG PO Daily June 22, 2021 1:00am October 24, 2021 1:22pm Start: 06-20-2019 take 1 capsule by mo [facility] once daily Venlafaxine 150 mg Capsule,Extended Release 24hr Active 150 MG PO Daily June 20, [...] Complications of surgical procedures or medical care (20 sources) Blood transfusion reaction; Translations: [Unspecified transfusion [...] and other anemia (20 sources) Iron deficiency anemia, unspecified; Translations: [Iron deficiency anemia, unspecified] Onset: 2 08-09-2022 Episodic Deficiency and other anemia (20 sources) Pernicious anemia; Translations: [Vitamin B12 deficiency anemia due to intrinsic factor deficiency] 10-25-2023 Episodic Deficiency and other anemia (19 sources) Vitamin B12 deficiency anemia due to intrinsic factor deficiency; Translations: [Pernicious anemia] Episodic Deficiency and other anemia (1 source) Other iron deficiency anemias; Translations: [Other iron deficiency anemias] Onset: 5 Episodic Diabetes mellitus with complications (9 sources) [...] or abscess without bleeding] Chronic Esophageal disorders (18 sources) Gastro-esophageal reflux disease without esophagitis; Translations: [Gastro-esophageal reflux disease with esophagitis] Onset: 3 03-07-2024 Chronic Essential hypertension (20 sources) Essential hypertension; Translations: [Essential (primary) hypertension] Chronic Gastritis and duodenitis (20 sources) Helicobacter-associated gastritis; Translations: [Gastritis, unspecified, without [...] immunization; Translations: [Vaccination given] Episodic Intestinal infection (20 sources) Infection caused by Helicobacter pylori; Translations: [...] 01-01-2020 Episodic Other aftercare (2 sources) 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 long goods helper (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; Translations: [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 CURRENT DRUG THERAPY] Onset: 3 Episodic Other aftercare (8 sources) Long-term current use of drug therapy; Translations: [Other half-way (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] Episodic Other circulatory disease [...] of hemorrhage)] 08-09-2022 Episodic Other gastrointestinal disorders (16 sources) Vascular ectasia of small intestine; Translations: [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] 11-25-2021 Episodic Other gastrointestinal disorders (14 sources) Gastrointestinal tract problem; Translations: [Other specified symptoms and signs involving the digestive system and abdomen] 11-05-2023 Episodic Other gastrointestinal disorders (4 sources) Other specified symptoms and signs involving the digestive system and abdomen; Translations: [Other abnormal clinical findings] 11-05-2023 Episodic Other gastrointestinal disorders (3 sources) Diarrhea; Translations: [Diarrhea, unspecified] 09-09-2024 Episodic Other gastrointestinal disorders (3 sources) Diarrhea, unspecified; Translations: [Diarrhea] 09-09-2024 Episodic Other injuries and conditions due to [...] Episodic Other nutritional; endocrine; and metabolic disorders (18 sources) Body mass index 40+ - severely obese; Translations: [Morbid (severe) obesity due to excess calories] 01-01-2020 Chronic Other nutritional; endocrine; and metabolic disorders (20 sources) Morbid (severe) obesity due to excess calories; Translations: [Morbid obesity] 08-09-2022 Chronic Other nutritional; endocrine; and metabolic disorders (1 source) Other obesity due to excess calories; Translations: [Other obesity due to excess calories] Onset: 6 Chronic Other nutritional; endocrine; and metabolic disorders (6 sources) Obesity, unspecified; Translations: [Obesity, unspecified] 09-09-2024 Chronic Other nutritional; endocrine; and metabolic disorders (8 sources) Morbid obesity; Translations: [Morbid (severe) obesity due to excess calories] Chronic Other nutritional; endocrine; and metabolic disorders (11 sources) Obesity; Translations: [Obesity, unspecified] 09-06-2024 Chronic Other nutritional; endocrine; and metabolic disorders (8 sources) Simple obesity ; Translations: [Other obesity due to excess calories] Onset: 6 Chronic Other screening for suspected conditions (not mental disorders or infectious disease) (11 sources) Encounter for screening mammogram for malignant neoplasm of breast; Translations: [Encounter for screening for osteoporosis] Onset: 5 Episodic Other skin disorders (7 sources) Skin lesion; Translations: [Disorder of the skin and subcutaneous tissue, unspecified] 02-11-2020 Episodic Other skin disorders (12 sources) Disorder of the skin and subcutaneous [...] [facility] Basophils Auto (Bld) [#/Vol] on 10-20-2024 Basophils (Bld) [#/Vol] Automated basoph il count 0.0-0.1 [facility] Basophils/100 WBC Auto (Bld) on 10-20-2024 Basophils/100 WBC (Bld) Automated basophil % 0. 2-2.0 [facility] Eosinophils/100 WBC Auto (Bl d)on 10-20-2024 Eosinophils/100 WBC (Bld) Automated eosinophil % 0.9-7.0 [facility] Erythrocyte distribution wid th Auto (RBC) [Ratio]on 10-20-2024 Erythrocyte distribution width (RBC) [Ratio] Erythrocyte distribution width [Ratio] by Automated count 11.0-15.0 [facility] Hematocrit Auto (Bld) [Volum e fraction]on 10-20-2024 Hematocrit (Bld) [Volume fraction] Hematocrit [Volume Fraction] of Blood by Automated count 36.0-48.0 [facility] Hemoglobin [Mass/volume] in Bloodon 10-20-2024 Hemoglobin (Bld) [Mass/Vol] Hemoglobin [Mass/volume] in Blood 12.0-16.0 [facility] Iron binding capacity [Mass/ volume] in Serum or Plasmaon 10-20-2024 Iron binding capacity [Mass/Vol] Iron binding capacity [Mass/volume] in Serum or Plasma 250.0-450.0 [facility] Iron saturation [Mass Fracti on] in Serum or Plasmaon 10-20-2024 Iron saturation [Mass fraction] Iron saturation [Mass Fraction] in Serum or Plasma [facility] Laboratory - Chemistry and C hemistry - challengeon 10-20-2024 Ferritin [Mass/Vol] 116.0 ng/mL 8.0-252.0 [facility] Iron [Mass/Vol] 43.0 ug/dL Low 50.0-170.0 [facility] Laboratory - Hematology and Cell countson 10-20-2024 Immature granulocytes/100 WBC (Bld) 0.2 % 0.0-0.5 [facility] Leukocytes [#/volume] correc eugenia for nucleated erythrocytes in Blood by Automated counon 10-20-2024 WBC corrected for nucl RBC Auto (Bld) [#/Vol] Leukocytes [#/volume] corrected for nucleated erythrocytes in Blood by Automated coun 4.0-11.0 [facility] Lymphocytes Auto (Bld) [#/Vo l]on 10-20-2024 Lymphocytes (Bld) [#/Vol] Lymphocytes [#/volume] in Blood by Automated count Low 1.2-3.8 [facility] Lymphocytes/100 WBC Auto (Bl d)on 10-20-2024 Lymphocytes/100 WBC (Bld) Lymphocytes/100 leukocytes in Blood by Automated count Low 20.5-60.0 [facility] MCH Auto (RBC) [Entitic mass ]on 10-20-2024 MCH (RBC) [Entitic mass] MCH [Entitic mass] by Automated count 26.7-34.0 [facility] MCHC Auto (RBC) [Mass/Vol]on 10-20-2024 MCHC (RBC) [Mass/Vol] MCHC [Mass/volume] by Automated count 29.9-35.2 [facility] MCV Auto (RBC) [Entitic vol] on 10-20-2024 MCV (RBC) [Entitic vol] MCV [Entitic vol ume] by Automated count High 81.0-99.0 [facility] Monocytes Auto (Bld) [#/Vol] on 10-20-2024 Monocytes (Bld) [#/Vol] Automated blood monocyte count 0.3-0.8 [facility] Monocytes/100 WBC Auto (Bld) on 10-20-2024 Monocytes/100 WBC (Bld) Automated monocyte % 1. 7-12.0 [facility] Neutrophils Auto (Bld) [#/Vo l]on 10-20-2024 Neutrophils (Bld) [#/Vol] Neutrophils [#/volume] in Blood by Automated count 1.4-6.5 [facility] Neutrophils/100 WBC Auto (Bl d)on 10-20-2024 Neutrophils/100 WBC (Bld) Automated neutrophil % 43.0-75.0 [facility] No Panel Informationon 10-20 Eosinophils # (Auto) 0.1 10 3/uL 0.0-0.7 [facility] Immature Granulocyte # (Auto) 0.01 10 3/uL 0.00-0.03 [facility] Platelet mean volume Auto (B ld) [Entitic vol]on 10-20-2024 Platelet mean volume (Bld) [Entitic vol] Platelet mean volume [Entitic volume] in Blood by Automated count 9.5-13.5 [facility] Platelets Auto (Bld) [#/Vol] on 10-20-2024 Platelets (Bld) [#/Vol] Platelets [#/vol ume] in Blood by Automated count 150-450 [facility] RBC Auto (Bld) [#/Vol]on RBC (Bld) [#/Vol] Erythrocytes [#/volume] in Blood by Automated count Low 4.20-5.40 [facility] Basophils Auto (Bld) [#/Vol] on 08-11-2024 Basophils (Bld) [#/Vol] Automated basoph il count 0.0-0.1 [facility] Basophils/100 WBC Auto (Bld) on 08-11-2024 Basophils/100 WBC (Bld) Automated basophil % 0. 2-2.0 [facility] Eosinophils/100 WBC Auto (Bl d)on 08-11-2024 Eosinophils/100 WBC (Bld) Automated eosinophil % 0.9-7.0 [facility] Erythrocyte distribution wid th Auto (RBC) [Ratio]on 08-11-2024 Erythrocyte distribution width (RBC) [Ratio] Erythrocyte distribution width [Ratio] by Automated count High 11.0-15.0 [facility] Estimated glomerular filtrat ion rate (GFR) non- Americanon 08-11-2024 GFR/1.73 sq M.predicted among non-blacks MDRD (S/P/Bld) [Vol rate/Area] Estimated glomerular filtration rate (GFR) non- >=60 mL/min/1.73m 2 [facility] Globulin Calc (S) [Mass/Vol] on 08-11-2024 Globulin (S) [Mass/Vol] Serum globulin measurement by calculation (mass/volume) [facility] Hematocrit Auto (Bld) [Volum e fraction]on 08-11-2024 Hematocrit (Bld) [Volume fraction] Hematocrit [Volume Fraction] of Blood by Automated count 36.0-48.0 [facility] Hemoglobin [Mass/volume] in Bloodon 08-11-2024 Hemoglobin (Bld) [Mass/Vol] Hemoglobin [Mass/volume] in Blood Low 12.0-16.0 [facility] Iron binding capacity [Mass/ volume] in Serum or Plasmaon 08-11-2024 Iron binding capacity [Mass/Vol] Iron binding capacity [Mass/volume] in Serum or Plasma 250.0-450.0 [facility] Iron saturation [Mass Fracti on] in Serum or Plasmaon 08-11-2024 Iron saturation [Mass fraction] Iron saturation [Mass Fraction] in Serum or Plasma [facility] Laboratory - Chemistry and C hemistry - challengeon 08-11-2024 Albumin [Mass/Vol] 3.0 g/dL Low 3.4-5.0 [facility] ALP [Catalytic activity/Vol] 109 U/L 46-116 [facility] ALT [Catalytic activity/Vol] 16 U/L 14-59 [facility] AST [Catalytic activity/Vol] 11 U/L Low 15-37 [facility] Bilirubin [Mass/Vol] 0.5 mg/dL 0.2-1.0 [facility] Calcium [Mass/Vol] 8.4 mg/dL Low 8.5-10.1 [facility] Chloride [Moles/Vol] 108 mmol/L High 98-107 [facility] CO2 [Moles/Vol] 26.8 mmol/L 21.0-32.0 [facility] Creatinine [Mass/Vol] 0.83 mg/dL 0.55-1.02 [facility] Ferritin [Mass/Vol] 69.0 ng/mL 8.0-252.0 [facility] GFR/1.73 sq M.predicted MDRD (S/P/Bld) [Vol rate/Area] mL/min/{1.73_m2} >=60 mL/min/1.73m 2 [facility] Glucose [Mass/Vol] 96 mg/dL 74-106 [facility] Iron [Mass/Vol] 51.0 ug/dL 50.0-170.0 [facility] Potassium [Moles/Vol] 4.3 mmol/L 3.5-5.1 [facility] Protein [Mass/Vol] 6.3 g/dL Low 6.4-8.2 [facility] Sodium [Moles/Vol] 140 mmol/L 136-145 [facility] Urea nitrogen [Mass/Vol] 19.0 mg/dL High 7.0-18.0 [facility] Urea nitrogen/Creatinine [Mass ratio] 22.9 mg/mg [facility] Laboratory - Hematology and Cell countson 08-11-2024 Immature granulocytes/100 WBC (Bld) 0.6 % High 0.0-0.5 [facility] Leukocytes [#/volume] correc eugenia for nucleated erythrocytes in Blood by Automated counon 08-11-2024 WBC corrected for nucl RBC Auto (Bld) [#/Vol] Leukocytes [#/volume] corrected for nucleated erythrocytes in Blood by Automated coun 4.0-11.0 [facility] Lymphocytes Auto (Bld) [#/Vo l]on 08-11-2024 Lymphocytes (Bld) [#/Vol] Lymphocytes [#/volume] in Blood by Automated count Low 1.2-3.8 [facility] Lymphocytes/100 WBC Auto (Bl d)on 08-11-2024 Lymphocytes/100 WBC (Bld) Lymphocytes/100 leukocytes in Blood by Automated count 20.5-60.0 [facility] MCH Auto (RBC) [Entitic mass ]on 08-11-2024 MCH (RBC) [Entitic mass] MCH [Entitic mass] by Automated count 26.7-34.0 [facility] MCHC Auto (RBC) [Mass/Vol]on 08-11-2024 MCHC (RBC) [Mass/Vol] MCHC [Mass/volume] by Automated count 29.9-35.2 [facility] MCV Auto (RBC) [Entitic vol] on 08-11-2024 MCV (RBC) [Entitic vol] MCV [Entitic vol ume] by Automated count 81.0-99.0 [facility] Monocytes Auto (Bld) [#/Vol] on 08-11-2024 Monocytes (Bld) [#/Vol] Automated blood monocyte count 0.3-0.8 [facility] Monocytes/100 WBC Auto (Bld) on 08-11-2024 Monocytes/100 WBC (Bld) Automated monocyte % 1. 7-12.0 [facility] Neutrophils Auto (Bld) [#/Vo l]on 08-11-2024 Neutrophils (Bld) [#/Vol] Neutrophils [#/volume] in Blood by Automated count 1.4-6.5 [facility] Neutrophils/100 WBC Auto (Bl d)on 08-11-2024 Neutrophils/100 WBC (Bld) Automated neutrophil % 43.0-75.0 [facility] No Panel Informationon 08-11 Eosinophils # (Auto) 0.1 10 3/uL 0.0-0.7 [facility] Immature Granulocyte # (Auto) 0.03 10 3/uL 0.00-0.03 [facility] Platelet mean volume Auto (B ld) [Entitic vol]on 08-11-2024 Platelet mean volume (Bld) [Entitic vol] Platelet mean volume [Entitic volume] in Blood by Automated count 9.5-13.5 [facility] Platelets Auto (Bld) [#/Vol] on 08-11-2024 Platelets (Bld) [#/Vol] Platelets [#/vol ume] in Blood by Automated count 150-450 [facility] RBC Auto (Bld) [#/Vol]on RBC (Bld) [#/Vol] Erythrocytes [#/volume] in Blood by Automated count Low 4.20-5.40 [facility] Serum or plasma albumin/glob ulin mass ratioon 08-11-2024 Albumin/Globulin [Mass ratio] Serum or plasma albumin/globulin mass ratio [facility] Serum or plasma anion gap de terminationon 08-11-2024 Anion gap [Moles/Vol] Serum or plasma anion gap determination [facility] Basophils Auto (Bld) [#/Vol] on 05-15-2024 Basophils (Bld) [#/Vol] 0.1 10 3/uL 0.0-0.1 [facility] Basophils/100 WBC Auto (Bld) on 05-15-2024 Basophils/100 WBC (Bld) 1.0 % 0.2-2.0 [facility] Eosinophils/100 WBC Auto (Bl d)on 05-15-2024 Eosinophils/100 WBC (Bld) 1.9 % 0.9-7.0 [facility] Erythrocyte distribution wid th Auto (RBC) [Ratio]on 05-15-2024 Erythrocyte distribution width (RBC) [Ratio] 13.2 % 11.0-15.0 [facility] Hematocrit Auto (Bld) [Volum e fraction]on 05-15-2024 Hematocrit (Bld) [Volume fraction] 32.8 % Low 36.0-48.0 [facility] Hemoglobin [Mass/volume] in Bloodon 05-15-2024 Hemoglobin (Bld) [Mass/Vol] 9.8 g/dL Low 12.0-16.0 [facility] Iron binding capacity [Mass/ volume] in Serum or Plasmaon 05-15-2024 Iron binding capacity [Mass/Vol] 302.0 ug/dL 250.0-450.0 [facility] Iron saturation [Mass Fracti on] in Serum or Plasmaon 05-15-2024 Iron saturation [Mass fraction] 8.6 % [facility] Laboratory - Chemistry and C hemistry - challengeon 05-15-2024 Ferritin [Mass/Vol] 28.0 ng/mL 8.0-252.0 [facility] Iron [Mass/Vol] 26.0 ug/dL Low 50.0-170.0 [facility] Laboratory - Hematology and Cell countson 05-15-2024 Immature granulocytes/100 WBC (Bld) 0.1 % 0.0-0.5 [facility] Leukocytes [#/volume] correc eugenia for nucleated erythrocytes in Blood by Automated counon 05-15-2024 WBC corrected for nucl RBC Auto (Bld) [#/Vol] 6.9 10 3/uL 4.0-11.0 [facility] Lymphocytes Auto (Bld) [#/Vo l]on 05-15-2024 Lymphocytes (Bld) [#/Vol] 1.0 10 3/uL Low 1.2-3.8 [facility] Lymphocytes/100 WBC Auto (Bl d)on 05-15-2024 Lymphocytes/100 WBC (Bld) 15.2 % Low 20.5-60.0 [facility] MCH Auto (RBC) [Entitic mass ]on 05-15-2024 MCH (RBC) [Entitic mass] 28.9 pg 26.7-34.0 [facility] MCHC Auto (RBC) [Mass/Vol]on 05-15-2024 MCHC (RBC) [Mass/Vol] 29.9 g/dL 29.9-35.2 [facility] MCV Auto (RBC) [Entitic vol] on 05-15-2024 MCV (RBC) [Entitic vol] 96.8 fL 81.0-99.0 F [facility] Monocytes Auto (Bld) [#/Vol] on 05-15-2024 Monocytes (Bld) [#/Vol] 0.4 10 3/uL 0.3-0.8 [facility] Monocytes/100 WBC Auto (Bld) on 05-15-2024 Monocytes/100 WBC (Bld) 6.4 % 1.7-12.0 F [facility] Neutrophils Auto (Bld) [#/Vo l]on 05-15-2024 Neutrophils (Bld) [#/Vol] 5.2 10 3/uL 1.4-6.5 [facility] Neutrophils/100 WBC Auto (Bl d)on 05-15-2024 Neutrophils/100 WBC (Bld) 75.4 % High 43.0-75.0 [facility] No Panel Informationon 05-15 Eosinophils # (Auto) 0.1 10 3/uL 0.0-0.7 [facility] Immature Granulocyte # (Auto) 0.01 10 3/uL 0.00-0.03 [facility] Platelet mean volume Auto (B ld) [Entitic vol]on 05-15-2024 Platelet mean volume (Bld) [Entitic vol] 10.3 fL 9.5-13.5 [facility] Platelets Auto (Bld) [#/Vol] on 05-15-2024 Platelets (Bld) [#/Vol] 288 10 3/uL 150-450 [facility] RBC Auto (Bld) [#/Vol]on RBC (Bld) [#/Vol] 3.39 10 6/uL Low 4.20-5.40 [facility] Basophils Auto (Bld) [#/Vol] on 02-04-2024 Basophils (Bld) [#/Vol] 0.1 10 3/uL 0.0-0.1 [facility] Basophils/100 WBC Auto (Bld) on 02-04-2024 Basophils/100 WBC (Bld) 1.1 % 0.2-2.0 [facility] Eosinophils/100 WBC Auto (Bl d)on 02-04-2024 Eosinophils/100 WBC (Bld) 1.6 % 0.9-7.0 [facility] Erythrocyte distribution wid th Auto (RBC) [Ratio]on 02-04-2024 Erythrocyte distribution width (RBC) [Ratio] 17.0 % High 11.0-15.0 [facility] Estimated glomerular filtrat ion rate (GFR) non- Americanon 02-04-2024 GFR/1.73 sq M.predicted among non-blacks MDRD (S/P/Bld) [Vol rate/Area] mL/min/{1.73_m2} >=60 [facility] Globulin Calc (S) [Mass/Vol] on 02-04-2024 Globulin (S) [Mass/Vol] 3.6 g/dL F [facility] Hematocrit Auto (Bld) [Volum e fraction]on 02-04-2024 Hematocrit (Bld) [Volume fraction] 42.5 % 36.0-48.0 [facility] Hemoglobin [Mass/volume] in Bloodon 02-04-2024 Hemoglobin (Bld) [Mass/Vol] 13.5 g/dL 12.0-16.0 [facility] Iron binding capacity [Mass/ volume] in Serum or Plasmaon 02-04-2024 Iron binding capacity [Mass/Vol] 236.0 ug/dL Low 250.0-450.0 [facility] Iron saturation [Mass Fracti on] in Serum or Plasmaon 02-04-2024 Iron saturation [Mass fraction] 32.2 % [facility] Laboratory - Chemistry and C hemistry - challengeon 02-04-2024 Albumin [Mass/Vol] 3.5 g/dL 3.4-5.0 [facility] ALP [Catalytic activity/Vol] 147 U/L High 46-116 [facility] ALT [Catalytic activity/Vol] 21 U/L 14-59 [facility] AST [Catalytic activity/Vol] 12 U/L Low 15-37 [facility] Bilirubin [Mass/Vol] 0.9 mg/dL 0.2-1.0 [facility] Calcium [Mass/Vol] 8.9 mg/dL 8.5-10.1 [facility] Chloride [Moles/Vol] 106 mmol/L 98-107 [facility] CO2 [Moles/Vol] 25.7 mmol/L 21.0-32.0 [facility] Creatinine [Mass/Vol] 0.91 mg/dL 0.55-1.02 [facility] Ferritin [Mass/Vol] 385.0 ng/mL High 8.0-252.0 [facility] GFR/1.73 sq M.predicted MDRD (S/P/Bld) [Vol rate/Area] mL/min/{1.73_m2} >=60 [facility] Glucose [Mass/Vol] 98 mg/dL 74-106 [facility] Iron [Mass/Vol] 76.0 ug/dL 50.0-170.0 [facility] Potassium [Moles/Vol] 4.0 mmol/L 3.5-5.1 [facility] Protein [Mass/Vol] 7.1 g/dL 6.4-8.2 [facility] Sodium [Moles/Vol] 139 mmol/L 136-145 [facility] Urea nitrogen [Mass/Vol] 17.0 mg/dL 7.0-18.0 [facility] Urea nitrogen/Creatinine [Mass ratio] 18.7 mg/mg [facility] Laboratory - Hematology and Cell countson 02-04-2024 Immature granulocytes/100 WBC (Bld) 0.3 % 0.0-0.5 [facility] Leukocytes [#/volume] correc eugenia for nucleated erythrocytes in Blood by Automated counon 02-04-2024 WBC corrected for nucl RBC Auto (Bld) [#/Vol] 6.2 10 3/uL 4.0-11.0 [facility] Lymphocytes Auto (Bld) [#/Vo l]on 02-04-2024 Lymphocytes (Bld) [#/Vol] 1.0 10 3/uL Low 1.2-3.8 [facility] Lymphocytes/100 WBC Auto (Bl d)on 02-04-2024 Lymphocytes/100 WBC (Bld) 16.6 % Low 20.5-60.0 [facility] MCH Auto (RBC) [Entitic mass ]on 02-04-2024 MCH (RBC) [Entitic mass] 28.4 pg 26.7-34.0 [facility] MCHC Auto (RBC) [Mass/Vol]on 02-04-2024 MCHC (RBC) [Mass/Vol] 31.8 g/dL 29.9-35.2 [facility] MCV Auto (RBC) [Entitic vol] on 02-04-2024 MCV (RBC) [Entitic vol] 89.5 fL 81.0-99.0 F [facility] Monocytes Auto (Bld) [#/Vol] on 02-04-2024 Monocytes (Bld) [#/Vol] 0.5 10 3/uL 0.3-0.8 [facility] Monocytes/100 WBC Auto (Bld) on 02-04-2024 Monocytes/100 WBC (Bld) 7.6 % 1.7-12.0 F [facility] Neutrophils Auto (Bld) [#/Vo l]on 02-04-2024 Neutrophils (Bld) [#/Vol] 4.5 10 3/uL 1.4-6.5 [facility] Neutrophils/100 WBC Auto (Bl d)on 02-04-2024 Neutrophils/100 WBC (Bld) 72.8 % 43.0-75.0 [facility] No Panel Informationon 02-03 Eosinophils # (Auto) 0.1 10 3/uL 0.0-0.7 [facility] Immature Granulocyte # (Auto) 0.02 10 3/uL 0.00-0.03 [facility] Platelet mean volume Auto (B ld) [Entitic vol]on 02-04-2024 Platelet mean volume (Bld) [Entitic vol] 9.9 fL 9.5-13.5 [facility] Platelets Auto (Bld) [#/Vol] on 02-04-2024 Platelets (Bld) [#/Vol] 277 10 3/uL 150-450 [facility] RBC Auto (Bld) [#/Vol]on RBC (Bld) [#/Vol] 4.75 10 6/uL 4.20-5.40 [facility] Serum or plasma albumin/glob ulin mass ratioon 02-04-2024 Albumin/Globulin [Mass ratio] 1.0 {ratio} [facility] Serum or plasma anion gap de terminationon 02-04-2024 Anion gap [Moles/Vol] 11.3 mmol/L [facility] Basophils Auto (Bld) [#/Vol] on 11-05-2023 Basophils (Bld) [#/Vol] 0.1 10 3/uL 0.0-0.1 [facility] Basophils/100 WBC Auto (Bld) on 11-05-2023 Basophils/100 WBC (Bld) 1.2 % 0.2-2.0 F [facility] Eosinophils/100 WBC Auto (Bl d)on 11-05-2023 Eosinophils/100 WBC (Bld) 1.4 % 0.9-7.0 [facility] Erythrocyte distribution wid th Auto (RBC) [Ratio]on 11-05-2023 Erythrocyte distribution width (RBC) [Ratio] 14.4 % 11.0-15.0 [facility] Estimated glomerular filtrat ion rate (GFR) non- Americanon 11-05-2023 GFR/1.73 sq M.predicted among non-blacks MDRD (S/P/Bld) [Vol rate/Area] mL/min/{1.73_m2} >=60 [facility] Globulin Calc (S) [Mass/Vol] on 11-05-2023 Globulin (S) [Mass/Vol] 3.8 g/dL F [facility] Hematocrit Auto (Bld) [Volum e fraction]on 11-05-2023 Hematocrit (Bld) [Volume fraction] 38.8 % 36.0-48.0 [facility] Hemoglobin [Mass/volume] in Bloodon 11-05-2023 Hemoglobin (Bld) [Mass/Vol] 11.5 g/dL 12.0-16.0 [facility] Iron binding capacity [Mass/ volume] in Serum or Plasmaon 11-05-2023 Iron binding capacity [Mass/Vol] 362.0 ug/dL 250.0-450.0 [facility] Iron saturation [Mass Fracti on] in Serum or Plasmaon 11-05-2023 Iron saturation [Mass fraction] 8.8 % [facility] Laboratory - Chemistry and C hemistry - challengeon 11-05-2023 Albumin [Mass/Vol] 3.3 g/dL 3.4-5.0 [facility] ALP [Catalytic activity/Vol] 120 U/L 46-116 [facility] ALT [Catalytic activity/Vol] 23 U/L 14-59 [facility] AST [Catalytic activity/Vol] 20 U/L 15-37 [facility] Bilirubin [Mass/Vol] 0.7 mg/dL 0.2-1.0 [facility] Calcium [Mass/Vol] 8.8 mg/dL 8.5-10.1 [facility] Chloride [Moles/Vol] 106 mmol/L 98-107 [facility] CO2 [Moles/Vol] 26.9 mmol/L 21.0-32.0 [facility] Creatinine [Mass/Vol] 0.84 mg/dL 0.55-1.02 [facility] Ferritin [Mass/Vol] 39.0 ng/mL 8.0-252.0 [facility] GFR/1.73 sq M.predicted MDRD (S/P/Bld) [Vol rate/Area] mL/min/{1.73_m2} >=60 [facility] Glucose [Mass/Vol] 88 mg/dL 74-106 [facility] Iron [Mass/Vol] 32.0 ug/dL 50.0-170.0 [facility] Potassium [Moles/Vol] 4.0 mmol/L 3.5-5.1 [facility] Protein [Mass/Vol] 7.1 g/dL 6.4-8.2 [facility] Sodium [Moles/Vol] 142 mmol/L 136-145 [facility] Urea nitrogen [Mass/Vol] 11.0 mg/dL 7.0-18.0 [facility] Urea nitrogen/Creatinine [Mass ratio] 13.1 mg/mg [facility] Laboratory - Hematology and Cell countson 11-05-2023 Immature granulocytes/100 WBC (Bld) 0.3 % 0.0-0.5 [facility] Leukocytes [#/volume] correc eugenia for nucleated erythrocytes in Blood by Automated counon 11-05-2023 WBC corrected for nucl RBC Auto (Bld) [#/Vol] 6.5 10 3/uL 4.0-11.0 [facility] Lymphocytes Auto (Bld) [#/Vo l]on 11-05-2023 Lymphocytes (Bld) [#/Vol] 1.0 10 3/uL 1.2-3.8 [facility] Lymphocytes/100 WBC Auto (Bl d)on 11-05-2023 Lymphocytes/100 WBC (Bld) 14.7 % 20.5-60.0 [facility] MCH Auto (RBC) [Entitic mass ]on 11-05-2023 MCH (RBC) [Entitic mass] 27.3 pg 26.7-34.0 [facility] MCHC Auto (RBC) [Mass/Vol]on 11-05-2023 MCHC (RBC) [Mass/Vol] 29.6 g/dL 29.9-35.2 [facility] MCV Auto (RBC) [Entitic vol] on 11-05-2023 MCV (RBC) [Entitic vol] 92.2 fL 81.0-99.0 [facility] Monocytes Auto (Bld) [#/Vol] on 11-05-2023 Monocytes (Bld) [#/Vol] 0.4 10 3/uL 0.3-0.8 [facility] Monocytes/100 WBC Auto (Bld) on 11-05-2023 Monocytes/100 WBC (Bld) 6.4 % 1.7-12.0 [facility] Neutrophils Auto (Bld) [#/Vo l]on 11-05-2023 Neutrophils (Bld) [#/Vol] 4.9 10 3/uL 1.4-6.5 [facility] Neutrophils/100 WBC Auto (Bl d)on 11-05-2023 Neutrophils/100 WBC (Bld) 76.0 % 43.0-75.0 [facility] No Panel Informationon 11-04 Eosinophils # (Auto) 0.1 10 3/uL 0.0-0.7 [facility] Immature Granulocyte # (Auto) 0.02 10 3/uL 0.00-0.03 [facility] Platelet mean volume Auto (B ld) [Entitic vol]on 11-05-2023 Platelet mean volume (Bld) [Entitic vol] 10.4 fL 9.5-13.5 [facility] Platelets Auto (Bld) [#/Vol] on 11-05-2023 Platelets (Bld) [#/Vol] 330 10 3/uL 150-450 [facility] RBC Auto (Bld) [#/Vol]on RBC (Bld) [#/Vol] 4.21 10 6/uL 4.20-5.40 [facility] Serum or plasma albumin/glob ulin mass ratioon 11-05-2023 Albumin/Globulin [Mass ratio] 0.9 {ratio} [facility] Serum or plasma anion gap de terminationon 11-05-2023 Anion gap [Moles/Vol] 13.1 mmol/L [facility] Basophils Auto (Bld) [#/Vol] on 10-22-2023 Basophils (Bld) [#/Vol] 0.1 10 3/uL 0.0-0.1 [facility] Basophils/100 WBC Auto (Bld) on 10-22-2023 Basophils/100 WBC (Bld) 1.1 % 0.2-2.0 [facility] Eosinophils/100 WBC Auto (Bl d)on 10-22-2023 Eosinophils/100 WBC (Bld) 0.6 % 0.9-7.0 [facility] Erythrocyte distribution wid th Auto (RBC) [Ratio]on 10-22-2023 Erythrocyte distribution width (RBC) [Ratio] 15.9 % 11.0-15.0 [facility] Estimated glomerular filtrat ion rate (GFR) non- Americanon 10-22-2023 GFR/1.73 sq M.predicted among non-blacks MDRD (S/P/Bld) [Vol rate/Area] mL/min/{1.73_m2} >=60 [facility] Hematocrit Auto (Bld) [Volum e fraction]on 10-22-2023 Hematocrit (Bld) [Volume fraction] 35.0 % 36.0-48.0 [facility] Hemoglobin [Mass/volume] in Bloodon 10-22-2023 Hemoglobin (Bld) [Mass/Vol] 10.4 g/dL 12.0-16.0 [facility] Laboratory - Chemistry and C hemistry - challengeon 10-22-2023 Calcium [Mass/Vol] 7.8 mg/dL 8.5-10.1 [facility] Chloride [Moles/Vol] 107 mmol/L 98-107 [facility] CO2 [Moles/Vol] 23.6 mmol/L 21.0-32.0 [facility] Creatinine [Mass/Vol] 0.74 mg/dL 0.55-1.02 [facility] GFR/1.73 sq M.predicted MDRD (S/P/Bld) [Vol rate/Area] mL/min/{1.73_m2} >=60 [facility] Glucose [Mass/Vol] 114 mg/dL 74-106 [facility] Potassium [Moles/Vol] 3.6 mmol/L 3.5-5.1 [facility] Sodium [Moles/Vol] 139 mmol/L 136-145 [facility] Urea nitrogen [Mass/Vol] 21.0 mg/dL 7.0-18.0 [facility] Urea nitrogen/Creatinine [Mass ratio] 28.4 mg/mg [facility] Laboratory - Hematology and Cell countson 10-22-2023 Immature granulocytes/100 WBC (Bld) 0.4 % 0.0-0.5 [facility] Leukocytes [#/volume] correc eugenia for nucleated erythrocytes in Blood by Automated counon 10-22-2023 WBC corrected for nucl RBC Auto (Bld) [#/Vol] 8.4 10 3/uL 4.0-11.0 [facility] Lymphocytes Auto (Bld) [#/Vo l]on 10-22-2023 Lymphocytes (Bld) [#/Vol] 1.4 10 3/uL 1.2-3.8 [facility] Lymphocytes/100 WBC Auto (Bl d)on 10-22-2023 Lymphocytes/100 WBC (Bld) 16.2 % 20.5-60.0 [facility] MCH Auto (RBC) [Entitic mass ]on 10-22-2023 MCH (RBC) [Entitic mass] 28.0 pg 26.7-34.0 [facility] MCHC Auto (RBC) [Mass/Vol]on 10-22-2023 MCHC (RBC) [Mass/Vol] 29.7 g/dL 29.9-35.2 [facility] MCV Auto (RBC) [Entitic vol] on 10-22-2023 MCV (RBC) [Entitic vol] 94.3 fL 81.0-99.0 F [facility] Monocytes Auto (Bld) [#/Vol] on 10-22-2023 Monocytes (Bld) [#/Vol] 0.9 10 3/uL 0.3-0.8 [facility] Monocytes/100 WBC Auto (Bld) on 10-22-2023 Monocytes/100 WBC (Bld) 10.8 % 1.7-12.0 F [facility] Neutrophils Auto (Bld) [#/Vo l]on 10-22-2023 Neutrophils (Bld) [#/Vol] 5.9 10 3/uL 1.4-6.5 [facility] Neutrophils/100 WBC Auto (Bl d)on 10-22-2023 Neutrophils/100 WBC (Bld) 70.9 % 43.0-75.0 [facility] No Panel Informationon 10-21 Eosinophils # (Auto) 0.1 10 3/uL 0.0-0.7 [facility] Immature Granulocyte # (Auto) 0.03 10 3/uL 0.00-0.03 [facility] Platelet mean volume Auto (B ld) [Entitic vol]on 10-22-2023 Platelet mean volume (Bld) [Entitic vol] 11.0 fL 9.5-13.5 [facility] Platelets Auto (Bld) [#/Vol] on 10-22-2023 Platelets (Bld) [#/Vol] 198 10 3/uL 150-450 [facility] RBC Auto (Bld) [#/Vol]on RBC (Bld) [#/Vol] 3.71 10 6/uL 4.20-5.40 [facility] Serum or plasma anion gap de terminationon 10-22-2023 Anion gap [Moles/Vol] 12.0 mmol/L Fi [facility] Activated partial thrombopla stin time (aPTT) in platelet poor plasma by coagulation aon 10-21-2023 aPTT Coag (PPP) [Time] 23.8 s 22.3-36.2 [facility] Automated epithelial cells c ount in urine sediment (number/area)on 10-21-2023 Epithelial cells Auto (Urine sed) [#/Area] RARE #/LPF NONE/RARE [facility] Automated leukocytes count i n urine sediment (number/area)on 10-21-2023 WBC Auto (Urine sed) [#/Area] 2-5 #/HPF 0-2 [facility] Automated urine hyaline cast s count (number/volume)on 10-21-2023 Hyaline casts Auto (U) [#/Vol] RARE [facility] Automated urine specific gra vity by refractometryon 10-21-2023 Specific gravity Refractometry automated (U) [Rel density] 1.025 1.005-1.025 [facility] Basophils Auto (Bld) [#/Vol] on 10-21-2023 Basophils (Bld) [#/Vol] 0.1 10 3/uL 0.0-0.1 [facility] Basophils/100 WBC Auto (Bld) on 10-21-2023 Basophils/100 WBC (Bld) 1.4 % 0.2-2.0 F [facility] Bilirubin Auto test strip (U ) [Mass/Vol]on 10-21-2023 Bilirubin (U) [Mass/Vol] Negative NEGATIVE [facility] Casts typing in urine sedime nt by light microscopyon 10-21-2023 Casts LM Nom (Urine sed) SEEN #/LPF NONE SEEN [facility] Color Auto (U)on 10-21-2023 Color (U) LT. YELLOW YELLOW [facility] Eosinophils/100 WBC Auto (Bl d)on 10-21-2023 Eosinophils/100 WBC (Bld) 1.5 % 0.9-7.0 [facility] Erythrocyte distribution wid th Auto (RBC) [Ratio]on 10-21-2023 Erythrocyte distribution width (RBC) [Ratio] 14.2 % 11.0-15.0 [facility] Estimated glomerular filtrat ion rate (GFR) non- Americanon 10-21-2023 GFR/1.73 sq M.predicted among non-blacks MDRD (S/P/Bld) [Vol rate/Area] mL/min/{1.73_m2} >=60 [facility] Globulin Calc (S) [Mass/Vol] on 10-21-2023 Globulin (S) [Mass/Vol] 3.6 g/dL F [facility] Hematocrit Auto (Bld) [Volum e fraction]on 10-21-2023 Hematocrit (Bld) [Volume fraction] 34.3 % 36.0-48.0 [facility] Hemoglobin [Mass/volume] in Bloodon 10-21-2023 Hemoglobin (Bld) [Mass/Vol] 9.8 g/dL 12.0-16.0 [facility] INR in Platelet poor plasma by Coagulation assayon 10-21-2023 INR Coag (PPP) [Relative time] 0.94 {INR} [facility] Comment on above: DESIRED INR:2.0-3.0 CONDITIONS NOT LISTED BELOW2.5-3.5 FOR PROSTHETIC HEART VALVE REPLACEMENT2.5-3.5 RECURRENT THROMBOSIS Ketones Auto test strip (U) [Mass/Vol]on 10-21-2023 Ketones (U) [Mass/Vol] mg/dL NEGATIVE [facility] and C hemistry - challengeon 10-21-2023 Lactate [Moles/Vol] 1.1 mmol/L 0.4-2.0 [facility] Albumin [Mass/Vol] 3.0 g/dL 3.4-5.0 [facility] ALP [Catalytic activity/Vol] 118 U/L 46-116 [facility] ALT [Catalytic activity/Vol] 18 U/L 14-59 [facility] AST [Catalytic activity/Vol] 14 U/L 15-37 [facility] Bilirubin [Mass/Vol] 0.4 mg/dL 0.2-1.0 [facility] Calcium [Mass/Vol] 8.1 mg/dL 8.5-10.1 [facility] Chloride [Moles/Vol] 106 mmol/L 98-107 [facility] CO2 [Moles/Vol] 19.0 mmol/L 21.0-32.0 [facility] Creatinine [Mass/Vol] 0.91 mg/dL 0.55-1.02 [facility] GFR/1.73 sq M.predicted MDRD (S/P/Bld) [Vol rate/Area] mL/min/{1.73_m2} >=60 [facility] Glucose [Mass/Vol] 124 mg/dL 74-106 [facility] Natriuretic peptide B (Bld) [Mass/Vol] 153.0 pg/mL <=900.0 [facility] Potassium [Moles/Vol] 4.0 mmol/L 3.5-5.1 [facility] Protein [Mass/Vol] 6.6 g/dL 6.4-8.2 [facility] Sodium [Moles/Vol] 143 mmol/L 136-145 [facility] Urea nitrogen [Mass/Vol] 28.0 mg/dL 7.0-18.0 [facility] Urea nitrogen/Creatinine [Mass ratio] 30.8 mg/mg [facility] Laboratory - Hematology and Cell countson 10-21-2023 Immature granulocytes/100 WBC (Bld) 0.3 % 0.0-0.5 [facility] Leukocytes [#/volume] correc eugenia for nucleated erythrocytes in Blood by Automated counon 10-21-2023 WBC corrected for nucl RBC Auto (Bld) [#/Vol] 7.9 10 3/uL 4.0-11.0 [facility] Lymphocytes Auto (Bld) [#/Vo l]on 10-21-2023 Lymphocytes (Bld) [#/Vol] 1.8 10 3/uL 1.2-3.8 [facility] Lymphocytes/100 WBC Auto (Bl d)on 10-21-2023 Lymphocytes/100 WBC (Bld) 22.1 % 20.5-60.0 [facility] MCH Auto (RBC) [Entitic mass ]on 10-21-2023 MCH (RBC) [Entitic mass] 27.8 pg 26.7-34.0 [facility] MCHC Auto (RBC) [Mass/Vol]on 10-21-2023 MCHC (RBC) [Mass/Vol] 28.6 g/dL 29.9-35.2 [facility] MCV Auto (RBC) [Entitic vol] on 10-21-2023 MCV (RBC) [Entitic vol] 97.4 fL 81.0-99.0 F [facility] Monocytes Auto (Bld) [#/Vol] on 10-21-2023 Monocytes (Bld) [#/Vol] 0.5 10 3/uL 0.3-0.8 [facility] Monocytes/100 WBC Auto (Bld) on 10-21-2023 Monocytes/100 WBC (Bld) 6.3 % 1.7-12.0 F [facility] Mucus LM Ql (Urine sed)on Mucus Ql (Urine sed) NONE SEEN NONE SEEN [facility] Neutrophils Auto (Bld) [#/Vo l]on 10-21-2023 Neutrophils (Bld) [#/Vol] 5.4 10 3/uL 1.4-6.5 [facility] Neutrophils/100 WBC Auto (Bl d)on 10-21-2023 Neutrophils/100 WBC (Bld) 68.4 % 43.0-75.0 [facility] No Panel Informationon 10-20 EPIS System Helicobacter pylori Urease Test Negative [facility] Ref[facility] Micro[facility]opic Review YES [facility] Eosinophils # (Auto) 0.1 10 3/uL 0.0-0.7 [facility] Immature Granulocyte # (Auto) 0.02 10 3/uL 0.00-0.03 [facility] Troponin I High Sensitivity <4.0 pg/mL 4.0-51.3 [facility] Comment on above: CUT-OFF POINTS HAVE BEEN [...] Shalom Hayward on 10-21-2023 Blood Culture 2 [facility] Blood Culture 1 [facility] Platelet mean volume Auto (B ld) [Entitic vol]on 10-21-2023 Platelet mean volume (Bld) [Entitic vol] 10.5 fL 9.5-13.5 [facility] Platelets Auto (Bld) [#/Vol] on 10-21-2023 Platelets (Bld) [#/Vol] 328 10 3/uL 150-450 [facility] Protein Auto test strip (U) [Mass/Vol]on 10-21-2023 Protein (U) [Mass/Vol] Negative NEG/TRACE Fi [facility] Prothrombin time (PT)on 10-03 PT Coag (PPP) [Time] 10.0 s 9.0-11.6 [facility] RBC Auto (Bld) [#/Vol]on RBC (Bld) [#/Vol] 3.52 10 6/uL 4.20-5.40 [facility] Serum or plasma albumin/glob ulin mass ratioon 10-21-2023 Albumin/Globulin [Mass ratio] 0.8 {ratio} [facility] Serum or plasma anion gap de terminationon 10-21-2023 Anion gap [Moles/Vol] 22.0 mmol/L Fi [facility] Serum procalcitonin measurem enton 10-21-2023 Procalcitonin [Mass/Vol] ng/mL 0.00-0.50 [facility] Specific gravity Auto test s trip (U) [Rel density]on 10-21-2023 Specific gravity (U) [Rel density] CLEAR CLEAR [facility] Urine bacteria detection by automated methodon 10-21-2023 Bacteria Auto Ql (U) NONE SEEN #/HPF NONE SEEN [facility] Urine glucose measurement by test strip (mass/volume)on 10-21-2023 Glucose Test strip (U) [Mass/Vol] Negative NEGATIVE [facility] Urine hemoglobin detection b y automated test stripon 10-21-2023 Hemoglobin Auto test strip Ql (U) SMALL NEGATIVE [facility] Urine nitrite detection by a utomated test stripon 10-21-2023 Nitrite Auto test strip Ql (U) Negative NEGATIVE [facility] Urine sediment crystal ident ification by light microscopyon 10-21-2023 Crystals LM Nom (Urine sed) None Seen #/HPF None Seen [facility] Urine sediment leukocyte cou nt by microscopy (number/high power field)on 10-21-2023 WBC LM.HPF (Urine sed) [#/Area] 0-2 #/HPF NONE SEEN [facility] Urobilinogen Auto test strip (U) [Mass/Vol]on 10-21-2023 Urobilinogen Qn (U) 0.2 {Carlota'U}/dL 0.2-1.0 [facility] pH Auto test strip (U)on pH (U) 5.0 [pH] 5.0-9.0 [facility] Anisocytosis LM Ql (Bld)Orde red By: Ricky Benson on 05-15-2023 Anisocytosis Ql (Bld) Moderate [facility] Basophils Auto (Bld) [#/Vol] Ordered By: Ricky Benson on 05-15-2023 Basophils (Bld) [#/Vol] 0.1 10*3/uL 0.0-0.2 [facility] Basophils/100 WBC Auto (Bld) Ordered By: Ricky Benson on 05-15-2023 Basophils/100 WBC (Bld) 1.5 % . F [facility] Eosinophils Auto (Bld) [#/Vo l]Ordered By: Ricky Benson on 05-15-2023 Eosinophils (Bld) [#/Vol] 0.1 10*3/uL 0.0-0.45 [facility] Eosinophils/100 WBC Auto (Bl d)Ordered By: Ricky Benson on 05-15-2023 Eosinophils/100 WBC (Bld) 1.8 % . [facility] Erythrocyte distribution wid th Auto (RBC) [Ratio]Ordered By: Ricky Benson on 05-15-2023 Erythrocyte distribution width (RBC) [Ratio] 25.6 % 11.9-15.3 [facility] Hematocrit Auto (Bld) [Volum e fraction]Ordered By: Ricky Benson on 05-15-2023 Hematocrit (Bld) [Volume fraction] 28.8 % 34.0-46.4 [facility] Hemoglobin [Mass/volume] in BloodOrdered By: Ricky Benson on 05-15-2023 Hemoglobin (Bld) [Mass/Vol] 8.7 g/dL 11.8-15.4 [facility] Hypochromia LM Ql (Bld)Order ed By: Ricky Benson on 05-15-2023 Hypochromia Ql (Bld) Moderate [facility] Leukocytes [#/volume] correc eugenia for nucleated erythrocytes in Blood by Automated counOrdered By: Ricky Benson on 05-15-2023 WBC corrected for nucl RBC Auto (Bld) [#/Vol] 4.4 10*3/uL 3.8-11.6 [facility] Lymphocytes Auto (Bld) [#/Vo l]Ordered By: Ricky Benson on 05-15-2023 Lymphocytes (Bld) [#/Vol] 0.7 10*3/uL 1.00-4.8 [facility] Lymphocytes/100 WBC Auto (Bl d)Ordered By: Ricky Benson on 05-15-2023 Lymphocytes/100 WBC (Bld) 16.9 % . [facility] MCH Auto (RBC) [Entitic mass ]Ordered By: Ricky Benson on 05-15-2023 MCH (RBC) [Entitic mass] 28.1 pg 24.7-34.3 [facility] MCHC Auto (RBC) [Mass/Vol]Or dered By: Ricky Benson on 05-15-2023 MCHC (RBC) [Mass/Vol] 30.2 g/dL 32.0-35.0 [facility] MCV Auto (RBC) [Entitic vol] Ordered By: Ricky Benson on 05-15-2023 MCV (RBC) [Entitic vol] 93.1 fL 80-100 F [facility] Monocytes Auto (Bld) [#/Vol] Ordered By: Ricky Benson on 05-15-2023 Monocytes (Bld) [#/Vol] 0.3 10*3/uL 0.0-0.8 [facility] Monocytes/100 WBC Auto (Bld) Ordered By: Ricky Benson on 05-15-2023 Monocytes/100 WBC (Bld) 6.2 % . F [facility] Neutrophils Auto (Bld) [#/Vo l]Ordered By: Ricky Benson on 05-15-2023 Neutrophils (Bld) [#/Vol] 3.2 10*3/uL 1.8-7.7 [facility] Neutrophils/100 WBC Auto (Bl d)Ordered By: Ricky Benson on 05-15-2023 Neutrophils/100 WBC (Bld) 73.6 % . [facility] Nucleated erythrocytes [Pres ence] in Blood by Automated countOrdered By: Ricky Benson on 05-15-2023 Nucleated RBC Auto Ql (Bld) 0.2 /100{WBC} 0-0.5 [facility] Ovalocyte detectionOrdered B y: Ricky Benson on 05-15-2023 Ovalocytes LM Ql (Bld) Slight [facility] Platelet adequacy [Presence] in Blood by Light microscopyOrdered By: Ricky Benson on 05-15-2023 Platelets LM Ql (Bld) Normal Normal [facility] Platelet mean volume Auto (B ld) [Entitic vol]Ordered By: Ricky Benson on 05-15-2023 Platelet mean volume (Bld) [Entitic vol] 8.6 fL 6.3-10.7 [facility] Platelet morphology finding [Identifier] in BloodOrdered By: Ricky Benson on 05-15-2023 Platelet morphology finding Nom (Bld) Normal Normal [facility] Platelets Auto (Bld) [#/Vol] Ordered By: Ricky Benson on 05-15-2023 Platelets (Bld) [#/Vol] 231 10*3/uL 150-450 [facility] Poikilocytosis [Presence] in Blood by Light microscopyOrdered By: Ricky Benson on 05-15-2023 Poikilocytosis LM Ql (Bld) Moderate [facility] Polychromasia [Presence] in Blood by Light microscopyOrdered By: Ricky Benson on 05-15-2023 Polychromasia LM Ql (Bld) Slight [facility] RBC Auto (Bld) [#/Vol]Ordere d By: Ricky Benson on 05-15-2023 RBC (Bld) [#/Vol] 3.09 10*6/uL 3.60-5.00 [facility] RBC morphologyOrdered By: Carissa Benson on 05-15-2023 RBC morphology finding Nom (Bld) N/A [facility] Teardrop cell detectionOrder ed By: Ricky Benson on 05-15-2023 Dacrocytes LM Ql (Bld) Slight Fi [facility] WBC Auto (Bld) [#/Vol]Ordere d By: Ricky Benson on 05-15-2023 WBC (Bld) [#/Vol] 4.4 10*3/uL 3.8-11.6 [facility] CBC AUTO DIFFon 11-05-2022 BASO # 0.1 103/ul Normal 0.0-0.1 [facility] Comment on above: Performed By: #### C BC #### [facility] [address] [place] [address] Dr. Sherry Quezada Basophils/100 WBC (Bld) 1.4 % Normal 0.2-2.0 [facility] Comment on above: Performed By: #### C BC #### [facility] [address] [address] [address] Sherry Quezada EO # 0.1 103/ul Normal 0.0-0.7 [facility] Comment on above: Performed By: #### C BC #### [facility] [address] [address] [address] Sherry Quezada Eosinophils/100 WBC (Bld) 2.5 % Normal 0.9-7.0 [facility] Comment on above: Performed By: #### C BC #### [facility] [address] [place] [address] Dr. Sherry Quezada Erythrocyte distribution width (RBC) [Ratio] 16.5 % Critically high 11.0-15.0 [facility] Comment on above: Performed By: #### C BC #### [facility] [address] [place] [address] Dr. Sherry Quezada Hematocrit (Bld) [Volume fraction] 32.1 % Critically low 36.0-48.0 [facility] Comment on above: Performed By: #### C BC #### [facility] [address] [place] [address] Dr. Sherry Quezada Hemoglobin (Bld) [Mass/Vol] 9.3 g/dL Critically low 12.0-16.0 [facility] Comment on above: Performed By: #### C BC #### [facility] [address] [place] [address] Dr. Sherry Quezada IG # 0.01 10e3/ul Normal 0.00-0.03 [facility] Comment on above: Performed By: #### C BC #### [facility] [address] [place] [address] Dr. Sherry Quezada IG % 0.2 % Normal 0.0-0.5 [facility] Comment on above: Performed By: #### C BC #### [facility] [address] [place] [address] Dr. Sherry Quezada LYMPH # 1.3 103/ul Normal 1.2-3.8 [facility] Comment on above: Performed By: #### C BC #### [facility] [address] [place] [address] Dr. Sherry Quezada Lymphocytes/100 WBC (Bld) 22.2 % Normal 20.5-60.0 [facility] Comment on above: Performed By: #### C BC #### [facility] [address] [place] [address] Dr. Sherry Quezada MANUAL DIFF REQ NO Normal [facility] Comment on above: Performed By: #### C BC #### [facility] [address] [place] [address] Dr. Sherry Quezada MCH (RBC) [Entitic mass] 24.4 pg Critically low 26.7-34.0 [facility] Comment on above: Performed By: #### C BC #### [facility] [address] [place] [address] Dr. Sherry Quezada MCHC (RBC) [Mass/Vol] 29.0 g/dL Critically low 29.9-35.2 [facility] Comment on above: Performed By: #### C BC #### [facility] [address] [place] [address] Dr. Sherry Quezada MCV (RBC) [Entitic vol] 84.3 fL Normal 81.0-99.0 [facility] Comment on above: Performed By: #### C BC #### [facility] [address] [place] [address] Dr. Sherry Quezada MONO # 0.5 103/ul Normal 0.3-0.8 [facility] Comment on above: Performed By: #### C BC #### [facility] [address] [place] [address] Dr. Sherry Quezada Monocytes/100 WBC (Bld) 9.1 % Normal 1.7-12.0 [facility] Comment on above: Performed By: #### C BC #### [facility] [address] [place] [address] Dr. Sherry Quezada NEUT # 3.7 103/ul Normal 1.4-6.5 [facility] Comment on above: Performed By: #### C BC #### [facility] [address] [place] [address] Dr. Sherry Quezada Neutrophils/100 WBC (Bld) 64.6 % Normal 43.0-75.0 [facility] Comment on above: Performed By: #### C BC #### [facility] [address] [place] [address] Dr. Sherry Quezada Platelet mean volume (Bld) [Entitic vol] 11.0 fL Normal 9.5-13.5 [facility] Comment on above: Performed By: #### C BC #### [facility] [address] [address] [address] Sherry Quezada PLT 261 103/ul Normal 150-450 [facility] Comment on above: Performed By: #### C BC #### [facility] [address] [address] [address] Sherry Quezada RBC 3.81 106/ul Critically low 4.20-5.40 [facility] Comment on above: Performed By: #### C BC #### [facility] [address] [address] [address] Sherry Quezada WBC 5.7 103/ul Normal 4.0-11.0 [facility] Comment on above: Performed By: #### C BC #### [facility] [address] [place] [address] Dr. Sherry Quezada FERRITINon 11-05-2022 Ferritin [Mass/Vol] 10.0 ng/mL Normal 8.0-252.0 [facility] Comment on above: Performed By: #### C BC #### [facility] [address] [place] [address] Dr. Sherry Quezada IRON AND TIBCon 11-05-2022 % SATURATION 5.2 % Normal [facility] Comment on above: Performed By: #### C BC #### [facility] [address] [place] [address] Dr. Sherry Quezada Iron [Mass/Vol] 20.0 ug/dL Critically low 50.0-170.0 [facility] Comment on above: Performed By: #### C BC #### [facility] [address] [place] [address] Dr. Sherry Quezada TIBC DIRECT 388.0 ug/dL Normal 250.0-450.0 [facility] Comment on above: Performed By: #### C BC #### [facility] [address] [place] [address] Dr. Sherry Quezada PRBC LEUKOREDUCEDon 10-10-19 23 ABO and Rh group Nom (Bld) Cross Match Result Compatible Unit Blood Type A Pos Unit Number [id number] Status Information Transfused Product ID Red Blood Cells Product Code [id number] Cross Match Result Compatible Blood Bank Notes CALLED SHAHLA LUCAS [place] AT [address] Unit Blood Type A Pos Unit Number [id number] Status Information Transfused Product ID Red Blood Cells Product Code [id number] Normal [facility] Comment on above: Performed By: #### T SH #### [facility] [address] [place] [address] Dr. Sherry Quezada ABO and Rh group Nom (Bld) Cross Match Result Compatible Unit Blood Type A Pos Unit Number [id number] Status Information Transfused Product ID Red Blood Cells Product Code [id number] Cross Match Result Compatible Unit Blood Type A Pos Unit Number [id number] Status Information Transfused Product ID Red Blood Cells Product Code [id number] Normal [facility] Comment on above: Performed By: #### T SH #### [facility] [address] [place] [address] Dr. Sherry Quezada CBC AUTO DIFFon 10-02-2022 BASO # 0.0 103/ul Normal 0.0-0.1 [facility] Comment on above: Performed By: #### T SH #### [facility] [address] [place] [address] Dr. Sherry Quezada Basophils/100 WBC (Bld) 0.7 % Normal 0.2-2.0 [facility] Comment on above: Performed By: #### T SH #### [facility] [address] [place] [address] Dr. Sherry Quezada EO # 0.2 103/ul Normal 0.0-0.7 [facility] Comment on above: Performed By: #### T SH #### [facility] [address] [place] [address] Dr. Sherry Quezada Eosinophils/100 WBC (Bld) 2.5 % Normal 0.9-7.0 [facility] Comment on above: Performed By: #### T SH #### [facility] [address] [place] [address] Dr. Sherry Quezada Erythrocyte distribution width (RBC) [Ratio] 16.4 % Critically high 11.0-15.0 [facility] Comment on above: Performed By: #### T SH #### [facility] [address] [place] [address] Dr. Sherry Quezada Hematocrit (Bld) [Volume fraction] 31.3 % Critically low 36.0-48.0 [facility] Comment on above: Performed By: #### T SH #### [facility] [address] [place] [address] Dr. Sherry Quezada Hemoglobin (Bld) [Mass/Vol] 9.9 g/dL Critically low 12.0-16.0 [facility] Comment on above: Performed By: #### T SH #### [facility] [address] [place] [address] Dr. Sherry Quezada IG # 0.02 10e3/ul Normal 0.00-0.03 [facility] Comment on above: Performed By: #### T SH #### [facility] [address] [place] [address] Dr. Sherry Quezada IG % 0.3 % Normal 0.0-0.5 [facility] Comment on above: Performed By: #### T SH #### [facility] [address] [place] [address] Dr. Sherry Quezada LYMPH # 1.1 103/ul Critically low 1.2-3.8 [facility] Comment on above: Performed By: #### T SH #### [facility] [address] [place] [address] Dr. Sherry Quezada Lymphocytes/100 WBC (Bld) 17.9 % Critically low 20.5-60.0 [facility] Comment on above: Performed By: #### T SH #### [facility] [address] [place] [address] Dr. Sherry Quezada MANUAL DIFF REQ NO Normal [facility] Comment on above: Performed By: #### T SH #### [facility] [address] [place] [address] Dr. Sherry Quezada MCH (RBC) [Entitic mass] 27.1 pg Normal 26.7-34.0 [facility] Comment on above: Performed By: #### T SH #### [facility] [address] [address] [address] Sherry Quezada MCHC (RBC) [Mass/Vol] 31.6 g/dL Normal 29.9-35.2 [facility] Comment on above: Performed By: #### T SH #### [facility] [address] [place] [address] Dr. Sherry Quezada MCV (RBC) [Entitic vol] 85.8 fL Normal 81.0-99.0 [facility] Comment on above: Performed By: #### T SH #### [facility] [address] [place] [address] Dr. Sherry Quezada MONO # 0.6 103/ul Normal 0.3-0.8 [facility] Comment on above: Performed By: #### T SH #### [facility] [address] [place] [address] Dr. Sherry Quezada Monocytes/100 WBC (Bld) 9.4 % Normal 1.7-12.0 [facility] Comment on above: Performed By: #### T SH #### [facility] [address] [place] [address] Dr. Sherry Quezada NEUT # 4.1 103/ul Normal 1.4-6.5 [facility] Comment on above: Performed By: #### T SH #### [facility] [address] [place] [address] Dr. Sherry Quezada Neutrophils/100 WBC (Bld) 69.2 % Normal 43.0-75.0 [facility] Comment on above: Performed By: #### T SH #### [facility] [address] [place] [address] Dr. Sherry Quezada Platelet mean volume (Bld) [Entitic vol] 10.7 fL Normal 9.5-13.5 [facility] Comment on above: Performed By: #### T SH #### [facility] [address] [place] [address] Dr. Sherry Quezada PLT 220 103/ul Normal 150-450 [facility] Comment on above: Performed By: #### T SH #### [facility] [address] [place] [address] Dr. Sherry Quezada RBC 3.65 106/ul Critically low 4.20-5.40 [facility] Comment on above: Performed By: #### T SH #### [facility] [address] [place] [address] Dr. Sherry Quezada WBC 5.9 103/ul Normal 4.0-11.0 [facility] Comment on above: Performed By: #### T SH #### [facility] [address] [place] [address] Dr. Sherry Quezada HEMOGLOBIN AND HEMATOCRITon 10-02-2022 Hematocrit (Bld) [Volume fraction] 30.6 % Critically low 36.0-48.0 [facility] Comment on above: Performed By: #### C BC #### [facility] [address] [place] [address] Dr. Sherry Quezada Hemoglobin (Bld) [Mass/Vol] 9.9 g/dL Critically low 12.0-16.0 [facility] Comment on above: Performed By: #### C BC #### [facility] [address] [place] [address] Dr. Sherry Quezada MAGNESIUMon 10-02-2022 Magnesium [Mass/Vol] 1.9 mg/dL Normal 1.8-2.4 [facility] Comment on above: Performed By: #### C VDTBH #### [facility] [address] [place] [address] Dr. Sherry Quezada PROF 14(COMP METB)on 023 Albumin [Mass/Vol] 2.7 g/dL Critically low 3.4-5.0 [facility] Comment on above: Performed By: #### C VDTBH #### [facility] [address] [place] [address] Dr. Sherry Quezada Albumin/Globulin [Mass ratio] 1.0 {ratio} Normal [facility] Comment on above: Performed By: #### C VDTBH #### [facility] [address] [place] [address] Dr. Sherry Quezada ALP [Catalytic activity/Vol] 74 U/L Normal 46-116 [facility] Comment on above: Performed By: #### C VDTBH #### [facility] [address] [address] [address] Sherry Quezada ALT [Catalytic activity/Vol] 13 U/L Critically low 14-59 [facility] Comment on above: Performed By: #### C VDTBH #### [facility] [address] [address] [address] Sherry Quezada Anion gap [Moles/Vol] 9.6 mmol/L Normal [facility] Comment on above: Performed By: #### C VDTBH #### [facility] [address] [address] [address] Sherry Quezada AST [Catalytic activity/Vol] 11 U/L Critically low 15-37 [facility] Comment on above: Performed By: #### C VDTBH #### [facility] [address] [place] [address] Dr. Sherry Quezada Bilirubin [Mass/Vol] 1.2 mg/dL Critically high 0.2-1.0 [facility] Comment on above: Performed By: #### C VDTBH #### [facility] [address] [place] [address] Dr. Sherry Quezada Calcium [Mass/Vol] 8.3 mg/dL Critically low 8.5-10.1 [facility] Comment on above: Performed By: #### C VDTBH #### [facility] [address] [address] [address] Sherry Quezada Chloride [Moles/Vol] 109 mmol/L Critically high 98-107 [facility] Comment on above: Performed By: #### C VDTBH #### [facility] [address] [address] [address] Sherry Quezada CO2 [Moles/Vol] 26.4 mmol/L Normal 21.0-32.0 [facility] Comment on above: Performed By: #### C VDTBH #### [facility] [address] [place] [address] Dr. Sherry Quezada Creatinine [Mass/Vol] 0.81 mg/dL Normal 0.55-1.02 [facility] Comment on above: Performed By: #### C VDTBH #### [facility] [address] [place] [address] Dr. Sherry Quezada EGFR-AF CUBAN >60 Normal >=60 [facility] Comment on above: Performed By: #### C VDTBH #### [facility] [address] [address] [address] Sherry Quezada EGFR-NON AF CUBAN >60 Normal >=60 [facility] Comment on above: Performed By: #### C VDTBH #### [facility] [address] [address] [address] Sherry Quezada Globulin (S) [Mass/Vol] 2.7 g/dL Normal [facility] Comment on above: Performed By: #### C VDTBH #### [facility] [address] [place] [address] Dr. Sherry Quezada Glucose [Mass/Vol] 96 mg/dL Normal 74-106 [facility] Comment on above: Performed By: #### C VDTBH #### [facility] [address] [address] [address] Sherry Quezada Potassium [Moles/Vol] 4.0 mmol/L Normal 3.5-5.1 [facility] Comment on above: Performed By: #### C VDTBH #### [facility] [address] [address] [address] Sherry Quezada Protein [Mass/Vol] 5.4 g/dL Critically low 6.4-8.2 [facility] [facility] Comment on above: Performed By: #### C VDTBH #### [facility] [address] [address] [address] Sherry Quezada Sodium [Moles/Vol] 141 mmol/L Normal 136-145 [facility] Comment on above: Performed By: #### C VDTBH #### [facility] [address] [address] [address] Sherry Quezada Urea nitrogen [Mass/Vol] 16.0 mg/dL Normal 7.0-18.0 [facility] Comment on above: Performed By: #### C VDTBH #### [facility] [address] [place] [address] Dr. Sherry Quezada Urea nitrogen/Creatinine [Mass ratio] 19.8 mg/mg Normal [facility] Comment on above: Performed By: #### C VDTBH #### [facility] [address] [place] [address] Dr. Sherry Quezada ER URINE PROFILEon 3 Bilirubin Ql (U) Negative Normal NEGATIVE [facility] Comment on above: Performed By: #### T SH #### [facility] [address] [place] [address] Dr. Sherry Quezada Clarity (U) CLEAR Normal CLEAR [facility] Comment on above: Performed By: #### T SH #### [facility] [address] [place] [address] Dr. Sherry Quezada Color (U) LT. YELLOW Normal YELLOW [facility] Comment on above: Performed By: #### T SH #### [facility] [address] [place] [address] Dr. Sherry Quezada ERUAHD A micrscopic examination will be performed if indicated. Normal [facility] Comment on above: Performed By: #### T SH #### [facility] [address] [place] [address] Dr. Sherry Quezada Glucose Ql (U) Negative Normal NEGATIVE [facility] Comment on above: Performed By: #### T SH #### [facility] [address] [place] [address] Dr. Sherry Quezada Hemoglobin Ql (U) Negative Normal NEGATIVE [facility] Comment on above: Performed By: #### T SH #### [facility] [address] [place] [address] Dr. Sherry Quezada Ketones Ql (U) Negative Normal NEGATIVE [facility] Comment on above: Performed By: #### T SH #### [facility] [address] [place] [address] Dr. Sherry Quezada LEUKOCYTES Negative Normal NEGATIVE [facility] Comment on above: Performed By: #### T SH #### [facility] [address] [place] [address] Dr. Sherry Quezada Nitrite Ql (U) Negative Normal NEGATIVE [facility] Comment on above: Performed By: #### T SH #### [facility] [address] [place] [address] Dr. Sherry Quezada pH (U) 5.5 [pH] Normal 5-9 [facility] Comment on above: Performed By: #### T SH #### [facility] [address] [place] [address] Dr. Sherry Quezada SPEC GRAVITY <=1.005 Abnormal 1.005-<=1.025 [facility] Comment on above: Performed By: #### T SH #### [facility] [address] [place] [address] Dr. Sherry Quezada UA PROTEIN Negative Normal NEGATIVE/ TRACE [facility] Comment on above: Performed By: #### T SH #### [facility] [address] [place] [address] Dr. Sherry Quezada UR MICRO IND NOT INDICATED Normal [facility] Comment on above: Performed By: #### T SH #### [facility] [address] [place] [address] Dr. Sherry Quezada Urobilinogen Qn (U) 0.2 {Carlota'U}/dL Normal 0.2 - 1. 0 [facility] Comment on above: Performed By: #### T SH #### [facility] [address] [place] [address] Dr. Sherry Quezada HEMOGLOBIN AND HEMATOCRITon 10-01-2022 Hematocrit (Bld) [Volume fraction] 31.5 % Critically low 36.0-48.0 [facility] Comment on above: Performed By: #### C BC #### [facility] [address] [place] [address] Dr. Sherry Quezada Hemoglobin (Bld) [Mass/Vol] 10.1 g/dL Critically low 12.0-16.0 [facility] Comment on above: Performed By: #### C BC #### [facility] [address] [place] [address] Dr. Sherry Quezada Hematocrit (Bld) [Volume fraction] 27.0 % Critically low 36.0-48.0 [facility] Comment on above: Performed By: #### C BC #### [facility] [address] [place] [address] Dr. Sherry Quezada Hemoglobin (Bld) [Mass/Vol] 8.5 g/dL Critically low 12.0-16.0 [facility] Comment on above: Performed By: #### C BC #### [facility] [address] [place] [address] Dr. Sherry Quezada Hematocrit (Bld) [Volume fraction] 24.7 % Critically low 36.0-48.0 [facility] Comment on above: Performed By: #### C BC #### [facility] [address] [place] [address] Dr. Sherry Quezada Hemoglobin (Bld) [Mass/Vol] 7.6 g/dL Critically low 12.0-16.0 [facility] Comment on above: Performed By: #### C BC #### [facility] [address] [place] [address] Dr. Sherry Quezada MAGNESIUMon 10-01-2022 Magnesium [Mass/Vol] 1.7 mg/dL Critically low 1.8-2.4 [facility] Comment on above: Performed By: #### C VDTBH #### [facility] [address] [place] [address] Dr. Sherry Quezada PROF 14(COMP METB)on 023 Albumin [Mass/Vol] 2.6 g/dL Critically low 3.4-5.0 [facility] Comment on above: Performed By: #### C VDTBH #### [facility] [address] [place] [address] Dr. Sherry Quezada Albumin/Globulin [Mass ratio] 1.0 {ratio} Normal [facility] Comment on above: Performed By: #### C VDTBH #### [facility] [address] [place] [address] Dr. Sherry Quezada ALP [Catalytic activity/Vol] 81 U/L Normal 46-116 [facility] Comment on above: Performed By: #### C VDTBH #### [facility] [address] [place] [address] Dr. Sherry Quezada ALT [Catalytic activity/Vol] 12 U/L Critically low 14-59 [facility] Comment on above: Performed By: #### C VDTBH #### [facility] [address] [place] [address] Dr. Sherry Quezada Anion gap [Moles/Vol] 9.3 mmol/L Normal [facility] Comment on above: Performed By: #### C VDTBH #### [facility] [address] [place] [address] Dr. Sherry Quezada AST [Catalytic activity/Vol] 14 U/L Critically low 15-37 [facility] Comment on above: Performed By: #### C VDTBH #### [facility] [address] [place] [address] Dr. Sherry Quezada Bilirubin [Mass/Vol] 1.7 mg/dL Critically high 0.2-1.0 [facility] Comment on above: Performed By: #### C VDTBH #### [facility] [address] [place] [address] Dr. Sherry Quezada Calcium [Mass/Vol] 7.8 mg/dL Critically low 8.5-10.1 [facility] Comment on above: Performed By: #### C VDTBH #### [facility] [address] [place] [address] Dr. Sherry Quezada Chloride [Moles/Vol] 108 mmol/L Critically high 98-107 [facility] Comment on above: Performed By: #### C VDTBH #### [facility] [address] [place] [address] Dr. Sherry Quezada CO2 [Moles/Vol] 26.8 mmol/L Normal 21.0-32.0 [facility] Comment on above: Performed By: #### C VDTBH #### [facility] [address] [place] [address] Dr. Sherry Quezada Creatinine [Mass/Vol] 0.74 mg/dL Normal 0.55-1.02 [facility] Comment on above: Performed By: #### C VDTBH #### [facility] [address] [place] [address] Dr. Sherry Quezada EGFR-AF CUBAN >60 Normal >=60 [facility] Comment on above: Performed By: #### C VDTBH #### [facility] [address] [place] [address] Dr. Sherry Quezada EGFR-NON AF CUBAN >60 Normal >=60 [facility] Comment on above: Performed By: #### C VDTBH #### [facility] [address] [place] [address] Dr. Sherry Quezada Globulin (S) [Mass/Vol] 2.6 g/dL Normal [facility] Comment on above: Performed By: #### C VDTBH #### [facility] [address] [place] [address] Dr. Sherry Quezada Glucose [Mass/Vol] 88 mg/dL Normal 74-106 [facility] Comment on above: Performed By: #### C VDTBH #### [facility] [address] [place] [address] Dr. Sherry Quezada Potassium [Moles/Vol] 4.1 mmol/L Normal 3.5-5.1 [facility] Comment on above: Performed By: #### C VDTBH #### [facility] [address] [place] [address] Dr. Sherry Quezada Protein [Mass/Vol] 5.2 g/dL Critically low 6.4-8.2 [facility] Comment on above: Performed By: #### C VDTBH #### [facility] [address] [place] [address] Dr. Sherry Quezada Sodium [Moles/Vol] 140 mmol/L Normal 136-145 [facility] Comment on above: Performed By: #### C VDTBH #### [facility] [address] [place] [address] Dr. Sherry Quezada Urea nitrogen [Mass/Vol] 13.0 mg/dL Normal 7.0-18.0 [facility] Comment on above: Performed By: #### C VDTBH #### [facility] [address] [place] [address] Dr. Sherry Quezada Urea nitrogen/Creatinine [Mass ratio] 17.6 mg/mg Normal [facility] Comment on above: Performed By: #### C VDTBH #### [facility] [address] [place] [address] Dr. Sherry Quezada CBC AUTO DIFFon 09-30-2022 BASO # 0.0 103/ul Normal 0.0-0.1 [facility] Comment on above: Performed By: #### C BC #### [facility] [address] [place] [address] Dr. Sherry Quezada Basophils/100 WBC (Bld) 0.5 % Normal 0.2-2.0 [facility] Comment on above: Performed By: #### C BC #### [facility] [address] [place] [address] Dr. Sherry Quezada EO # 0.0 103/ul Normal 0.0-0.7 [facility] Comment on above: Performed By: #### C BC #### [facility] [address] [place] [address] Dr. Sherry Quezada Eosinophils/100 WBC (Bld) 0.2 % Critically low 0.9-7.0 [facility] Comment on above: Performed By: #### C BC #### [facility] [address] [place] [address] Dr. Sherry Quezada Erythrocyte distribution width (RBC) [Ratio] 17.5 % Critically high 11.0-15.0 [facility] Comment on above: Performed By: #### C BC #### [facility] [address] [place] [address] Dr. Sherry Quezada Hematocrit (Bld) [Volume fraction] 21.5 % Critically low 36.0-48.0 [facility] Comment on above: Performed By: #### C BC #### [facility] [address] [place] [address] Dr. Sherry Quezada Hemoglobin (Bld) [Mass/Vol] 6.3 g/dL Critically low 12.0-16.0 [facility] Comment on above: Performed By: #### C BC #### [facility] [address] [place] [address] Dr. Sherry Quezada IG # 0.06 10e3/ul Critically high 0.00-0.03 [facility] Comment on above: Performed By: #### C BC #### [facility] [address] [place] [address] Dr. Sherry Quezada IG % 0.7 % Critically high 0.0-0.5 [facility] Comment on above: Performed By: #### C BC #### [facility] [address] [place] [address] Dr. Sherry Quezada LYMPH # 1.0 103/ul Critically low 1.2-3.8 [facility] Comment on above: Performed By: #### C BC #### [facility] [address] [place] [address] Dr. Sherry Quezada Lymphocytes/100 WBC (Bld) 11.3 % Critically low 20.5-60.0 [facility] Comment on above: Performed By: #### C BC #### [facility] [address] [place] [address] Dr. Sherry Quezada MANUAL DIFF REQ NO Normal [facility] Comment on above: Performed By: #### C BC #### [facility] [address] [place] [address] Dr. Sherry Quezada MCH (RBC) [Entitic mass] 24.6 pg Critically low 26.7-34.0 [facility] Comment on above: Performed By: #### C BC #### [facility] [address] [place] [address] Dr. Sherry Quezada MCHC (RBC) [Mass/Vol] 29.3 g/dL Critically low 29.9-35.2 [facility] Comment on above: Performed By: #### C BC #### [facility] [address] [place] [address] Dr. Sherry Quezada MCV (RBC) [Entitic vol] 84.0 fL Normal 81.0-99.0 [facility] Comment on above: Performed By: #### C BC #### [facility] [address] [place] [address] Dr. Sherry Quezada MONO # 0.5 103/ul Normal 0.3-0.8 [facility] Comment on above: Performed By: #### C BC #### [facility] [address] [place] [address] Dr. Sherry Quezada Monocytes/100 WBC (Bld) 5.4 % Normal 1.7-12.0 [facility] Comment on above: Performed By: #### C BC #### [facility] [address] [place] [address] Dr. Sherry Quezada NEUT # 7.2 103/ul Critically high 1.4-6.5 [facility] Comment on above: Performed By: #### C BC #### [facility] [address] [place] [address] Dr. Sherry Quezada Neutrophils/100 WBC (Bld) 81.9 % Critically high 43.0-75.0 [facility] Comment on above: Performed By: #### C BC #### [facility] [address] [place] [address] Dr. Sherry Quezada Platelet mean volume (Bld) [Entitic vol] 11.2 fL Normal 9.5-13.5 [facility] Comment on above: Performed By: #### C BC #### [facility] [address] [place] [address] Dr. Sherry Quezada PLT 325 103/ul Normal 150-450 [facility] Comment on above: Performed By: #### C BC #### [facility] [address] [place] [address] Dr. Sherry Quezada RBC 2.56 106/ul Critically low 4.20-5.40 [facility] Comment on above: Performed By: #### C BC #### [facility] [address] [place] [address] Dr. Sherry Quezada WBC 8.8 103/ul Normal 4.0-11.0 [facility] Comment on above: Performed By: #### C #### [facility] [address] [address] [address] ABD/PELV W CONon [...] SARAI LUCAS Date: 2022-09-30 20:50 Normal [facility] Covid-19 PCR (CVDTB)on 09-06 SARS-CoV-2 (COVID-19) RNA MELITON+probe Ql (Unsp spec) Not detected Normal NOT DETECTED [facility] Comment on above: Result Comment: When [...] for this test is supported by the [employer] Analyst of Health and Human Service's declaration that [...] used). Performed By: #### C VDTBH #### [facility] [address] [place] [address] Dr. Sherry Quezada IRON AND TIBCon 09-30-2022 % SATURATION 25.8 % Normal [facility] Comment on above: Performed By: #### C BC #### [facility] [address] [place] [address] Dr. Sherry Quezada Iron [Mass/Vol] 99.0 ug/dL Normal 50.0-170.0 [facility] Comment on above: Performed By: #### C BC #### [facility] [address] [place] [address] Dr. Sherry Quezada TIBC DIRECT 384.0 ug/dL Normal 250.0-450.0 [facility] Comment on above: Performed By: #### C BC #### [facility] [address] [place] [address] Dr. Sherry Quezada OCC BLD IMMUNO SCREENon 09-06 OCCULT BLOOD Positive Abnormal NEGATIVE [facility] Comment on above: Performed By: #### C BC #### [facility] [address] [place] [address] Dr. Sherry Quezada PROF CHEM 8 (BAS METB)on Anion gap [Moles/Vol] 17.6 mmol/L Normal [facility] Comment on above: Performed By: #### C VDTBH #### [facility] [address] [address] [address] Sherry Quezada Calcium [Mass/Vol] 8.7 mg/dL Normal 8.5-10.1 [facility] Comment on above: Performed By: #### C VDTBH #### [facility] [address] [place] [address] Dr. Sherry Quezada Chloride [Moles/Vol] 104 mmol/L Normal 98-107 [facility] Comment on above: Performed By: #### C VDTBH #### [facility] [address] [place] [address] Dr. Sherry Quezada CO2 [Moles/Vol] 20.3 mmol/L Critically low 21.0-32.0 [facility] Comment on above: Performed By: #### C VDTBH #### [facility] [address] [place] [address] Dr. Sherry Quezada Creatinine [Mass/Vol] 0.91 mg/dL Normal 0.55-1.02 [facility] Comment on above: Performed By: #### C VDTBH #### [facility] [address] [place] [address] Dr. Sherry Quezada EGFR-AF CUBAN >60 Normal >=60 [facility] Comment on above: Performed By: #### C VDTBH #### [facility] [address] [place] [address] Dr. Sherry Quezada EGFR-NON AF CUBAN >60 Normal >=60 [facility] Comment on above: Performed By: #### C VDTBH #### [facility] [address] [place] [address] Dr. Sherry Quezada Glucose [Mass/Vol] 124 mg/dL Critically high 74-106 [facility] Comment on above: Performed By: #### C VDTBH #### [facility] [address] [place] [address] Dr. Sherry Quezada Potassium [Moles/Vol] 3.9 mmol/L Normal 3.5-5.1 [facility] Comment on above: Performed By: #### C VDTBH #### [facility] [address] [place] [address] Dr. Sherry Quezada Sodium [Moles/Vol] 138 mmol/L Normal 136-145 [facility] Comment on above: Performed By: #### C VDTBH #### [facility] [address] [place] [address] Dr. Sherry Quezada Urea nitrogen [Mass/Vol] 15.0 mg/dL Normal 7.0-18.0 [facility] Comment on above: Performed By: #### C VDTBH #### [facility] [address] [place] [address] Dr. Sherry Quezada Urea nitrogen/Creatinine [Mass ratio] 16.5 mg/mg Normal [facility] Comment on above: Performed By: #### C VDTBH #### [facility] [address] [place] [address] Dr. Sherry Quezada TYPE AND SCREENon 09-30-2022 TYPE AND SCREEN Negative Normal [facility] Comment on above: Performed By: #### T SH #### [facility] [address] [place] [address] Dr. Sherry Quezada CBC AUTO DIFFon 08-06-2022 BASO # 0.1 103/ul Normal 0.0-0.1 [facility] Comment on above: Performed By: #### C BC #### [facility] [address] [place] [address] Dr. Sherry Quezada Basophils/100 WBC (Bld) 1.1 % Normal 0.2-2.0 [facility] Comment on above: Performed By: #### C BC #### [facility] [address] [place] [address] Dr. Sherry Quezada EO # 0.1 103/ul Normal 0.0-0.7 [facility] Comment on above: Performed By: #### C BC #### [facility] [address] [place] [address] Dr. Sherry Quezada Eosinophils/100 WBC (Bld) 1.6 % Normal 0.9-7.0 [facility] Comment on above: Performed By: #### C BC #### [facility] [address] [place] [address] Dr. Sherry Quezada Erythrocyte distribution width (RBC) [Ratio] 14.9 % Normal 11.0-15.0 [facility] Comment on above: Performed By: #### C BC #### [facility] [address] [place] [address] Dr. Sherry Quezada Hematocrit (Bld) [Volume fraction] 35.2 % Critically low 36.0-48.0 [facility] Comment on above: Performed By: #### C BC #### [facility] [address] [place] [address] Dr. Sherry Quezada Hemoglobin (Bld) [Mass/Vol] 10.7 g/dL Critically low 12.0-16.0 [facility] Comment on above: Performed By: #### C BC #### [facility] [address] [place] [address] Dr. Sherry Quezada IG # 0.03 10e3/ul Normal 0.00-0.03 [facility] Comment on above: Performed By: #### C BC #### [facility] [address] [place] [address] Dr. Sherry Quezada IG % 0.4 % Normal 0.0-0.5 [facility] Comment on above: Performed By: #### C BC #### [facility] [address] [place] [address] Dr. Sherry Quezada LYMPH # 1.6 103/ul Normal 1.2-3.8 [facility] Comment on above: Performed By: #### C BC #### [facility] [address] [place] [address] Dr. Sherry Quezada Lymphocytes/100 WBC (Bld) 19.5 % Critically low 20.5-60.0 [facility] Comment on above: Performed By: #### C BC #### [facility] [address] [place] [address] Dr. Sherry Quezada MANUAL DIFF REQ NO Normal [facility] Comment on above: Performed By: #### C BC #### [facility] [address] [place] [address] Dr. Sherry Quezada MCH (RBC) [Entitic mass] 28.6 pg Normal 26.7-34.0 [facility] Comment on above: Performed By: #### C BC #### [facility] [address] [place] [address] Dr. Sherry Quezada MCHC (RBC) [Mass/Vol] 30.4 g/dL Normal 29.9-35.2 [facility] Comment on above: Performed By: #### C BC #### [facility] [address] [place] [address] Dr. Sherry Quezada MCV (RBC) [Entitic vol] 94.1 fL Normal 81.0-99.0 [facility] Comment on above: Performed By: #### C BC #### [facility] [address] [place] [address] Dr. Sherry Quezada MONO # 0.6 103/ul Normal 0.3-0.8 [facility] Comment on above: Performed By: #### C BC #### [facility] [address] [place] [address] Dr. Sherry Quezada Monocytes/100 WBC (Bld) 6.7 % Normal 1.7-12.0 [facility] Comment on above: Performed By: #### C BC #### [facility] [address] [place] [address] Dr. Sherry Quezada NEUT # 5.9 103/ul Normal 1.4-6.5 [facility] Comment on above: Performed By: #### C BC #### [facility] [address] [place] [address] Dr. Sherry Quezada Neutrophils/100 WBC (Bld) 70.7 % Normal 43.0-75.0 [facility] Comment on above: Performed By: #### C BC #### [facility] [address] [place] [address] Dr. Sherry Quezada Platelet mean volume (Bld) [Entitic vol] 9.7 fL Normal 9.5-13.5 [facility] Comment on above: Performed By: #### C BC #### [facility] [address] [address] [address] Sherry Quezada PLT 327 103/ul Normal 150-450 [facility] Comment on above: Performed By: #### C BC #### [facility] [address] [place] [address] Dr. Sherry Quezada RBC 3.74 106/ul Critically low 4.20-5.40 [facility] Comment on above: Performed By: #### C BC #### [facility] [address] [address] [address] Sherry Quezada WBC 8.3 103/ul Normal 4.0-11.0 [facility] Comment on above: Performed By: #### C BC #### [facility] [address] [place] [address] Dr. Sherry Quezada FERRITINon 08-06-2022 Ferritin [Mass/Vol] 34.0 ng/mL Normal 8.0-252.0 [facility] Comment on above: Performed By: #### C BC #### [facility] [address] [place] [address] Dr. Sherry Quezada IRON AND TIBCon 08-06-2022 % SATURATION 5.9 % Normal [facility] Comment on above: Performed By: #### C BC #### [facility] [address] [place] [address] Dr. Sherry Quezada Iron [Mass/Vol] 20.0 ug/dL Critically low 50.0-170.0 [facility] Comment on above: Performed By: #### C BC #### [facility] [address] [place] [address] Dr. Sherry Quezada TIBC DIRECT 338.0 ug/dL Normal 250.0-450.0 [facility] Comment on above: Performed By: #### C BC #### [facility] [address] [place] [address] Dr. Sherry Quezada CBC AUTO DIFFon 06-04-2022 BASO # 0.1 103/ul Normal 0.0-0.1 [facility] Comment on above: Performed By: #### T SH #### [facility] [address] [place] [address] Dr. Sherry Quezada Basophils/100 WBC (Bld) 1.0 % Normal 0.2-2.0 [facility] Comment on above: Performed By: #### T SH #### [facility] [address] [place] [address] Dr. Sherry Quezada EO # 0.1 103/ul Normal 0.0-0.7 [facility] Comment on above: Performed By: #### T SH #### [facility] [address] [place] [address] Dr. Sherry Quezada Eosinophils/100 WBC (Bld) 2.1 % Normal 0.9-7.0 [facility] Comment on above: Performed By: #### T SH #### [facility] [address] [place] [address] Dr. Sherry Quezada Erythrocyte distribution width (RBC) [Ratio] 19.3 % Critically high 11.0-15.0 [facility] Comment on above: Performed By: #### T SH #### [facility] [address] [place] [address] Dr. Sherry Quezada Hematocrit (Bld) [Volume fraction] 38.4 % Normal 36.0-48.0 [facility] Comment on above: Performed By: #### T SH #### [facility] [address] [place] [address] Dr. Sherry Quezada Hemoglobin (Bld) [Mass/Vol] 11.7 g/dL Critically low 12.0-16.0 [facility] Comment on above: Performed By: #### T SH #### [facility] [address] [place] [address] Dr. Sherry Quezada IG # 0.03 10e3/ul Normal 0.00-0.03 [facility] Comment on above: Performed By: #### T SH #### [facility] [address] [place] [address] Dr. Sherry Quezada IG % 0.5 % Normal 0.0-0.5 [facility] Comment on above: Performed By: #### T SH #### [facility] [address] [address] [address] Sherry Quezada LYMPH # 1.2 103/ul Normal 1.2-3.8 [facility] Comment on above: Performed By: #### T SH #### [facility] [address] [place] [address] Dr. Sherry Quezada Lymphocytes/100 WBC (Bld) 21.1 % Normal 20.5-60.0 [facility] Comment on above: Performed By: #### T SH #### [facility] [address] [place] [address] Dr. Sherry Quezada MANUAL DIFF REQ NO Normal [facility] Comment on above: Performed By: #### T SH #### [facility] [address] [place] [address] Dr. Sherry Quezada MCH (RBC) [Entitic mass] 27.0 pg Normal 26.7-34.0 [facility] Comment on above: Performed By: #### T SH #### [facility] [address] [place] [address] Dr. Sherry Quezada MCHC (RBC) [Mass/Vol] 30.5 g/dL Normal 29.9-35.2 [facility] Comment on above: Performed By: #### T SH #### [facility] [address] [place] [address] Dr. Sherry Quezada MCV (RBC) [Entitic vol] 88.5 fL Normal 81.0-99.0 [facility] Comment on above: Performed By: #### T SH #### [facility] [address] [place] [address] Dr. Sherry Quezada MONO # 0.4 103/ul Normal 0.3-0.8 [facility] Comment on above: Performed By: #### T SH #### [facility] [address] [place] [address] Dr. Sherry Quezada Monocytes/100 WBC (Bld) 7.5 % Normal 1.7-12.0 [facility] Comment on above: Performed By: #### T SH #### [facility] [address] [address] [address] Sherry Quezada NEUT # 3.9 103/ul Normal 1.4-6.5 [facility] Comment on above: Performed By: #### T SH #### [facility] [address] [place] [address] Dr. Sherry Quezada Neutrophils/100 WBC (Bld) 67.8 % Normal 43.0-75.0 [facility] Comment on above: Performed By: #### T SH #### [facility] [address] [place] [address] Dr. Sherry Quezada Platelet mean volume (Bld) [Entitic vol] 10.2 fL Normal 9.5-13.5 [facility] Comment on above: Performed By: #### T SH #### [facility] [address] [place] [address] Dr. Sherry Quezada PLT 324 103/ul Normal 150-450 [facility] Comment on above: Performed By: #### T SH #### [facility] [address] [place] [address] Dr. Sherry Quezada RBC 4.34 106/ul Normal 4.20-5.40 [facility] Comment on above: Performed By: #### T SH #### [facility] [address] [place] [address] Dr. Sherry Quezada WBC 5.8 103/ul Normal 4.0-11.0 [facility] Comment on above: Performed By: #### T SH #### [facility] [address] [place] [address] Dr. Sherry Quezada FERRITINon 06-04-2022 Ferritin [Mass/Vol] 48.0 ng/mL Normal 8.0-252.0 [facility] Comment on above: Performed By: #### C BC #### [facility] [address] [place] [address] Dr. Sherry Quezada GLYCOHEMOGLOBIN A1Con 2021 ADA RECOMMENDATION SEE BELOW Normal [facility] Comment on above: Result Comment: ADA RECOMMENDED LIMIT 4.0 - 6.0 ADA THERAPEUTIC TARGET < 7.0 ACTION SUGGESTED > 7.0 Performed By: #### T SH #### [facility] [address] [address] [address] Sherry Quezada Glucose [Mass/Vol] 77 mg/dL Normal [facility] Comment on above: Performed By: #### T SH #### [facility] [address] [address] [address] Sherry Quezada HbA1c (Bld) [Mass fraction] 4.3 % Critically low 4.5-6.2 [facility] Comment on above: Performed By: #### T SH #### [facility] [address] [place] [address] Dr. Sherry Quezada IRON AND TIBCon 06-04-2022 % SATURATION 13.4 % Normal [facility] Comment on above: Performed By: #### C BC #### [facility] [address] [place] [address] Dr. Sherry Quezada Iron [Mass/Vol] 42.0 ug/dL Critically low 50.0-170.0 [facility] Comment on above: Performed By: #### C BC #### [facility] [address] [place] [address] Dr. Sherry Quezada TIBC DIRECT 314.0 ug/dL Normal 250.0-450.0 [facility] Comment on above: Performed By: #### C BC #### [facility] [address] [place] [address] Dr. Sherry Quezada PROF 14(COMP METB)on 022 Albumin [Mass/Vol] 3.4 g/dL Normal 3.4-5.0 [facility] Comment on above: Performed By: #### C VDTBH #### [facility] [address] [place] [address] Dr. Sherry Quezada Albumin/Globulin [Mass ratio] 0.9 {ratio} Normal [facility] Comment on above: Performed By: #### C VDTBH #### [facility] [address] [place] [address] Dr. Sherry Quezada ALP [Catalytic activity/Vol] 97 U/L Normal 46-116 [facility] Comment on above: Performed By: #### C VDTBH #### [facility] [address] [address] [address] Sherry Quezada ALT [Catalytic activity/Vol] 19 U/L Normal 14-59 [facility] Comment on above: Performed By: #### C VDTBH #### [facility] [address] [address] [address] Sherry Quezada Anion gap [Moles/Vol] 12.4 mmol/L Normal [facility] Comment on above: Performed By: #### C VDTBH #### [facility] [address] [address] [address] Sherry Quezada AST [Catalytic activity/Vol] 12 U/L Critically low 15-37 [facility] Comment on above: Performed By: #### C VDTBH #### [facility] [address] [place] [address] Dr. Sherry Quezada Bilirubin [Mass/Vol] 0.6 mg/dL Normal 0.2-1.0 [facility] Comment on above: Performed By: #### C VDTBH #### [facility] [address] [place] [address] Dr. Sherry Quezada Calcium [Mass/Vol] 8.9 mg/dL Normal 8.5-10.1 [facility] Comment on above: Performed By: #### C VDTBH #### [facility] [address] [place] [address] Dr. Sherry Quezada Chloride [Moles/Vol] 106 mmol/L Normal 98-107 [facility] Comment on above: Performed By: #### C VDTBH #### [facility] [address] [place] [address] Dr. Sherry Quezada CO2 [Moles/Vol] 24.6 mmol/L Normal 21.0-32.0 [facility] Comment on above: Performed By: #### C VDTBH #### [facility] [address] [place] [address] Dr. Sherry Quezada Creatinine [Mass/Vol] 0.88 mg/dL Normal 0.55-1.02 [facility] Comment on above: Performed By: #### C VDTBH #### [facility] [address] [address] [address] Sherry Quezada EGFR-AF CUBAN >60 Normal >=60 [facility] Comment on above: Performed By: #### C VDTBH #### [facility] [address] [address] [address] Sherry Quezada EGFR-NON AF CUBAN >60 Normal >=60 [facility] Comment on above: Performed By: #### C VDTBH #### [facility] [address] [address] [address] Sherry Quezada Globulin (S) [Mass/Vol] 3.6 g/dL Normal [facility] Comment on above: Performed By: #### C VDTBH #### [facility] [address] [place] [address] Dr. Sherry Quezada Glucose [Mass/Vol] 99 mg/dL Normal 74-106 [facility] Comment on above: Performed By: #### C VDTBH #### [facility] [address] [place] [address] Dr. Sherry Quezada Potassium [Moles/Vol] 4.0 mmol/L Normal 3.5-5.1 [facility] Comment on above: Performed By: #### C VDTBH #### [facility] [address] [place] [address] Dr. Sherry Quezada Protein [Mass/Vol] 7.0 g/dL Normal 6.4-8.2 [facility] Comment on above: Performed By: #### C VDTBH #### [facility] [address] [place] [address] Dr. Sherry Quezada Sodium [Moles/Vol] 139 mmol/L Normal 136-145 [facility] Comment on above: Performed By: #### C VDTBH #### [facility] [address] [address] [address] Sherry Quezada Urea nitrogen [Mass/Vol] 13.0 mg/dL Normal 7.0-18.0 [facility] Comment on above: Performed By: #### C VDTBH #### [facility] [address] [place] [address] Dr. Sherry Quezada Urea nitrogen/Creatinine [Mass ratio] 14.8 mg/mg Normal [facility] Comment on above: Performed By: #### C VDTBH #### [facility] [address] [place] [address] Dr. Sherry Quezada T3, TOTAL (TRIIODOTHYRONINE) on 04-04-2022 T3, TOTAL 95 ng/dL Normal 71-180 [facility] Comment on above: Performed By: #### T 3TOTAL #### [facility] [address] [place] [address] Dr. Sherry Quezada CBC AUTO DIFFon 04-03-2022 BASO # 0.1 103/ul Normal 0.0-0.1 [facility] Comment on above: Performed By: #### C BC #### [facility] [address] [place] [address] Dr. Sherry Quezada Basophils/100 WBC (Bld) 1.3 % Normal 0.2-2.0 [facility] Comment on above: Performed By: #### C BC #### [facility] [address] [place] [address] Dr. Sherry Quezada EO # 0.1 103/ul Normal 0.0-0.7 [facility] Comment on above: Performed By: #### C BC #### [facility] [address] [place] [address] Dr. Sherry Quezada Eosinophils/100 WBC (Bld) 1.3 % Normal 0.9-7.0 [facility] Comment on above: Performed By: #### C BC #### [facility] [address] [place] [address] Dr. Sherry Quezada Erythrocyte distribution width (RBC) [Ratio] 19.4 % Critically high 11.0-15.0 [facility] Comment on above: Performed By: #### C BC #### [facility] [address] [place] [address] Dr. Sherry Quezada Hematocrit (Bld) [Volume fraction] 33.2 % Critically low 36.0-48.0 [facility] Comment on above: Performed By: #### C BC #### [facility] [address] [address] [address] Sherry Quezada Hemoglobin (Bld) [Mass/Vol] 9.7 g/dL Critically low 12.0-16.0 [facility] Comment on above: Performed By: #### C BC #### [facility] [address] [place] [address] Dr. Sherry Quezada IG # 0.02 10e3/ul Normal 0.00-0.03 [facility] Comment on above: Performed By: #### C BC #### [facility] [address] [place] [address] Dr. Sherry Quezada IG % 0.3 % Normal 0.0-0.5 [facility] Comment on above: Performed By: #### C BC #### [facility] [address] [place] [address] Dr. Sherry Quezada LYMPH # 0.9 103/ul Critically low 1.2-3.8 [facility] Comment on above: Performed By: #### C BC #### [facility] [address] [place] [address] Dr. Sherry Quezada Lymphocytes/100 WBC (Bld) 14.7 % Critically low 20.5-60.0 [facility] Comment on above: Performed By: #### C BC #### [facility] [address] [place] [address] Dr. Sherry Quezada MANUAL DIFF REQ NO Normal [facility] Comment on above: Performed By: #### C BC #### [facility] [address] [place] [address] Dr. Sherry Quezada MCH (RBC) [Entitic mass] 24.9 pg Critically low 26.7-34.0 [facility] Comment on above: Performed By: #### C BC #### [facility] [address] [place] [address] Dr. Sherry Quezada MCHC (RBC) [Mass/Vol] 29.2 g/dL Critically low 29.9-35.2 [facility] Comment on above: Performed By: #### C BC #### [facility] [address] [address] [address] Sherry Quezada MCV (RBC) [Entitic vol] 85.1 fL Normal 81.0-99.0 [facility] Comment on above: Performed By: #### C BC #### [facility] [address] [address] [address] Sherry Quezada MONO # 0.5 103/ul Normal 0.3-0.8 [facility] Comment on above: Performed By: #### C BC #### [facility] [address] [address] [address] Sherry Quezada Monocytes/100 WBC (Bld) 7.8 % Normal 1.7-12.0 [facility] Comment on above: Performed By: #### C BC #### [facility] [address] [address] [address] Sherry Quezada NEUT # 4.6 103/ul Normal 1.4-6.5 [facility] Comment on above: Performed By: #### C BC #### [facility] [address] [address] [address] Sherry Quezada Neutrophils/100 WBC (Bld) 74.6 % Normal 43.0-75.0 [facility] Comment on above: Performed By: #### C BC #### [facility] [address] [address] [address] Sherry Quezada Platelet mean volume (Bld) [Entitic vol] 10.1 fL Normal 9.5-13.5 [facility] Comment on above: Performed By: #### C BC #### [facility] [address] [address] [address] Sherry Quezada PLT 302 103/ul Normal 150-450 [facility] Comment on above: Performed By: #### C BC #### [facility] [address] [address] [address] Sherry Quezada RBC 3.90 106/ul Critically low 4.20-5.40 [facility] Comment on above: Performed By: #### C BC #### [facility] [address] [place] [address] Dr. Sherry Quezada WBC 6.1 103/ul Normal 4.0-11.0 [facility] Comment on above: Performed By: #### C BC #### [facility] [address] [place] [address] Dr. Sherry Quezada FERRITINon 04-03-2022 Ferritin [Mass/Vol] 11.0 ng/mL Normal 8.0-252.0 [facility] Comment on above: Performed By: #### F T4, FERR, FETIBC #### [facility] [address] [place] [address] Dr. Sherry Quezada FREE T4on 04-03-2022 Free T4 [Mass/Vol] 1.06 ng/dL Normal 0.76-1.46 [facility] Comment on above: Performed By: #### F T4, FERR, FETIBC #### [facility] [address] [place] [address] Dr. Sherry Quezada IRON AND TIBCon 04-03-2022 % SATURATION 6.0 % Normal [facility] Comment on above: Performed By: #### F T4, FERR, FETIBC #### [facility] [address] [place] [address] Dr. Sherry Quezada Iron [Mass/Vol] 21.0 ug/dL Critically low 50.0-170.0 [facility] Comment on above: Performed By: #### F T4, FERR, FETIBC #### [facility] [address] [place] [address] Dr. Sherry Quezada TIBC DIRECT 352.0 ug/dL Normal 250.0-450.0 [facility] Comment on above: Performed By: #### F T4, FERR, FETIBC #### [facility] [address] [place] [address] Dr. Sherry Quezada TSHon 04-03-2022 TSH 0.880 uIU/mL Normal 0.358-3.740 [facility] Comment on above: Performed By: #### T SH #### [facility] [address] [address] [address] Sherry Quezada MG MAMM SCREEN 3D MANJINDER CADon 02-16-2022 MG MAMM SCREEN 3D MANJINDER CAD Patient: JANINE CONDE Exam Date: 02/16/2022 : 1950 Gender:F Ordering : DR SHALOM HAYWARD D.O. Admission #: [id number] Family : Order #: [id number] CLICK HERE TO VIEW EXAM RADIOLOGY REPORT [...] Treatments None Family Cancers None LOCATION: [facility] BREAST COMPOSITION: Scattered areas fibroglandular density. [...] Freeman M.D. on 02/19/2022 at 12:46 Normal [facility] CBC AUTO DIFFon 02-13-2022 BASO # 0.1 103/ul Normal 0.0-0.1 [facility] Comment on above: Performed By: #### C BC #### [facility] [address] [address] [address] Sherry Quezada Basophils/100 WBC (Bld) 1.5 % Normal 0.2-2.0 [facility] Comment on above: Performed By: #### C BC #### [facility] [address] [address] [address] Sherry Quezada EO # 0.1 103/ul Normal 0.0-0.7 [facility] Comment on above: Performed By: #### C BC #### [facility] [address] [place] [address] Dr. Sherry Quezada Eosinophils/100 WBC (Bld) 1.0 % Normal 0.9-7.0 [facility] Comment on above: Performed By: #### C BC #### [facility] [address] [place] [address] Dr. Sherry Quezada Hematocrit (Bld) [Volume fraction] 35.3 % Critically low 36.0-48.0 [facility] Comment on above: Performed By: #### C BC #### [facility] [address] [place] [address] Dr. Sherry Quezada Hemoglobin (Bld) [Mass/Vol] 10.5 g/dL Critically low 12.0-16.0 [facility] Comment on above: Performed By: #### C BC #### [facility] [address] [place] [address] Dr. Sherry Quezada IG # 0.01 10e3/ul Normal 0.00-0.03 [facility] Comment on above: Performed By: #### C BC #### [facility] [address] [place] [address] Dr. Sherry Quezada IG % 0.2 % Normal 0.0-0.5 [facility] Comment on above: Performed By: #### C BC #### [facility] [address] [place] [address] Dr. Sherry Quezada LYMPH # 1.0 103/ul Critically low 1.2-3.8 [facility] Comment on above: Performed By: #### C BC #### [facility] [address] [place] [address] Dr. Sherry Quezada Lymphocytes/100 WBC (Bld) 16.7 % Critically low 20.5-60.0 [facility] Comment on above: Performed By: #### C BC #### [facility] [address] [place] [address] Dr. Sherry Quezada MANUAL DIFF REQ NO Normal [facility] Comment on above: Performed By: #### C BC #### [facility] [address] [place] [address] Dr. Sherry Quezada MCH (RBC) [Entitic mass] 27.8 pg Normal 26.7-34.0 [facility] Comment on above: Performed By: #### C BC #### [facility] [address] [place] [address] Dr. Sherry Quezada MCHC (RBC) [Mass/Vol] 29.7 g/dL Critically low 29.9-35.2 [facility] Comment on above: Result Comment: 1+ h ypochromasia Performed By: #### C BC #### [facility] [address] [place] [address] Dr. Sherry Quezada MCV (RBC) [Entitic vol] 93.4 fL Normal 81.0-99.0 [facility] Comment on above: Performed By: #### C BC #### [facility] [address] [place] [address] Dr. Sherry Quezada MONO # 0.4 103/ul Normal 0.3-0.8 [facility] Comment on above: Performed By: #### C BC #### [facility] [address] [place] [address] Dr. Sherry Quezada Monocytes/100 WBC (Bld) 6.7 % Normal 1.7-12.0 [facility] Comment on above: Performed By: #### C BC #### [facility] [address] [place] [address] Dr. Sherry Quezada NEUT # 4.5 103/ul Normal 1.4-6.5 [facility] Comment on above: Performed By: #### C BC #### [facility] [address] [place] [address] Dr. Sherry Quezada Neutrophils/100 WBC (Bld) 73.9 % Normal 43.0-75.0 [facility] Comment on above: Performed By: #### C BC #### [facility] [address] [place] [address] Dr. Sherry Quezada Platelet mean volume (Bld) [Entitic vol] 9.8 fL Normal 9.5-13.5 [facility] Comment on above: Performed By: #### C BC #### [facility] [address] [place] [address] Dr. Sherry Quezada PLT 305 103/ul Normal 150-450 [facility] Comment on above: Performed By: #### C BC #### [facility] [address] [place] [address] Dr. Sherry Quezada RBC 3.78 106/ul Critically low 4.20-5.40 [facility] Comment on above: Performed By: #### C BC #### [facility] [address] [place] [address] Dr. Sherry Quezada WBC 6.1 103/ul Normal 4.0-11.0 [facility] Comment on above: Performed By: #### C BC #### [facility] [address] [place] [address] Dr. Sherry Quezada FERRITINon 02-13-2022 Ferritin [Mass/Vol] 75.0 ng/mL Normal 8.0-252.0 [facility] Comment on above: Performed By: #### F ETIBC, FERR #### [facility] [address] [place] [address] Dr. Sherry Quezada IRON AND TIBCon 02-13-2022 % SATURATION 9.0 % Normal [facility] Comment on above: Performed By: #### T SH #### [facility] [address] [place] [address] Dr. Sherry Quezada Iron [Mass/Vol] 34.0 ug/dL Critically low 50.0-170.0 [facility] Comment on above: Performed By: #### T SH #### [facility] [address] [place] [address] Dr. Sherry Quezada TIBC DIRECT 376.0 ug/dL Normal 250.0-450.0 [facility] Comment on above: Performed By: #### T SH #### [facility] [address] [place] [address] Dr. Sherry Quezada PROF 14(COMP METB)on 022 Albumin [Mass/Vol] 3.3 g/dL Critically low 3.4-5.0 [facility] Comment on above: Performed By: #### C BC #### [facility] [address] [place] [address] Dr. Sherry Quezada Albumin/Globulin [Mass ratio] 0.9 {ratio} Normal [facility] Comment on above: Performed By: #### C BC #### [facility] [address] [place] [address] Dr. Sherry Quezada ALP [Catalytic activity/Vol] 92 U/L Normal 46-116 [facility] Comment on above: Performed By: #### C BC #### [facility] [address] [place] [address] Dr. Sherry Quezada ALT [Catalytic activity/Vol] 19 U/L Normal 14-59 [facility] Comment on above: Performed By: #### C BC #### [facility] [address] [place] [address] Dr. Sherry Quezada Anion gap [Moles/Vol] 14.2 mmol/L Normal [facility] Comment on above: Performed By: #### C BC #### [facility] [address] [place] [address] Dr. Sherry Quezada AST [Catalytic activity/Vol] 13 U/L Critically low 15-37 [facility] Comment on above: Performed By: #### C BC #### [facility] [address] [place] [address] Dr. Sherry Quezada Bilirubin [Mass/Vol] 0.6 mg/dL Normal 0.2-1.0 [facility] Comment on above: Performed By: #### C BC #### [facility] [address] [place] [address] Dr. Sherry Quezada Calcium [Mass/Vol] 8.8 mg/dL Normal 8.5-10.1 [facility] Comment on above: Performed By: #### C BC #### [facility] [address] [place] [address] Dr. Sherry Quezada Chloride [Moles/Vol] 105 mmol/L Normal 98-107 [facility] Comment on above: Performed By: #### C BC #### [facility] [address] [place] [address] Dr. Sherry Quezada CO2 [Moles/Vol] 24.5 mmol/L Normal 21.0-32.0 [facility] Comment on above: Performed By: #### C BC #### [facility] [address] [place] [address] Dr. Sherry Quzeada Creatinine [Mass/Vol] 0.97 mg/dL Normal 0.55-1.02 [facility] Comment on above: Performed By: #### C BC #### [facility] [address] [place] [address] Dr. Sherry Quezada EGFR-AF CUBAN >60 Normal >=60 [facility] Comment on above: Performed By: #### C BC #### [facility] [facility] [address] [place] [address] Dr. Sherry Quezada EGFR-NON AF CUBAN 56 mL/min/1.73m2 Critically low >=60 [facility] Comment on above: Performed By: #### C BC #### [facility] [address] [place] [address] Dr. Sherry Quezada Globulin (S) [Mass/Vol] 3.6 g/dL Normal [facility] Comment on above: Performed By: #### C BC #### [facility] [address] [place] [address] Dr. Sherry Quezada Glucose [Mass/Vol] 110 mg/dL Critically high 74-106 [facility] Comment on above: Performed By: #### C BC #### [facility] [address] [place] [address] Dr. Sherry Quezada Potassium [Moles/Vol] 3.7 mmol/L Normal 3.5-5.1 [facility] Comment on above: Performed By: #### C BC #### [facility] [address] [place] [address] Dr. Sherry Quezada Protein [Mass/Vol] 6.9 g/dL Normal 6.4-8.2 [facility] Comment on above: Performed By: #### C BC #### [facility] [address] [place] [address] Dr. Sherry Quezada Sodium [Moles/Vol] 140 mmol/L Normal 136-145 [facility] Comment on above: Performed By: #### C BC #### [facility] [address] [place] [address] Dr. Sherry Quezada Urea nitrogen [Mass/Vol] 19.0 mg/dL Critically high 7.0-18.0 [facility] Comment on above: Performed By: #### C BC #### [facility] [address] [place] [address] Dr. Sherry Quezada Urea nitrogen/Creatinine [Mass ratio] 19.6 mg/mg Normal [facility] Comment on above: Performed By: #### C BC #### [facility] [address] [place] [address] Dr. Sherry Quezada CBC AUTO DIFFon 01-03-2022 BASO # 0.1 103/ul Normal 0.0-0.1 [facility] Comment on above: Performed By: #### C VDTBH #### [facility] [address] [place] [address] Dr. Sherry Quezada Basophils/100 WBC (Bld) 1.7 % Normal 0.2-2.0 [facility] Comment on above: Performed By: #### C VDTBH #### [facility] [address] [place] [address] Dr. Sherry Quezada EO # 0.1 103/ul Normal 0.0-0.7 [facility] Comment on above: Performed By: #### C VDTBH #### [facility] [address] [place] [address] Dr. Sherry Quezada Eosinophils/100 WBC (Bld) 2.1 % Normal 0.9-7.0 [facility] Comment on above: Performed By: #### C VDTBH #### [facility] [address] [place] [address] Dr. Sherry Quezada Erythrocyte distribution width (RBC) [Ratio] 18.9 % Critically high 11.0-15.0 [facility] Comment on above: Performed By: #### C VDTBH #### [facility] [address] [place] [address] Dr. Sherry Quezada Hematocrit (Bld) [Volume fraction] 32.7 % Critically low 36.0-48.0 [facility] Comment on above: Performed By: #### C VDTBH #### [facility] [address] [place] [address] Dr. Sherry Quezada Hemoglobin (Bld) [Mass/Vol] 9.1 g/dL Critically low 12.0-16.0 [facility] Comment on above: Performed By: #### C VDTBH #### [facility] [address] [place] [address] Dr. Sherry Quezada IG # 0.02 10e3/ul Normal 0.00-0.03 [facility] Comment on above: Performed By: #### C VDTBH #### [facility] [address] [place] [address] Dr. Sherry Quezada IG % 0.3 % Normal 0.0-0.5 [facility] Comment on above: Performed By: #### C VDTBH #### [facility] [address] [place] [address] Dr. Sherry Quezada LYMPH # 1.4 103/ul Normal 1.2-3.8 [facility] Comment on above: Performed By: #### C VDTBH #### [facility] [address] [place] [address] Dr. Sherry Quezada Lymphocytes/100 WBC (Bld) 23.8 % Normal 20.5-60.0 [facility] Comment on above: Performed By: #### C VDTBH #### [facility] [address] [place] [address] Dr. Sherry Quezada MANUAL DIFF REQ NO Normal [facility] Comment on above: Performed By: #### C VDTBH #### [facility] [address] [place] [address] Dr. Sherry Quezada MCH (RBC) [Entitic mass] 24.1 pg Critically low 26.7-34.0 [facility] Comment on above: Performed By: #### C VDTBH #### [facility] [address] [place] [address] Dr. Sherry Quezada MCHC (RBC) [Mass/Vol] 27.8 g/dL Critically low 29.9-35.2 [facility] Comment on above: Performed By: #### C VDTBH #### [facility] [address] [place] [address] Dr. Sherry Quezada MCV (RBC) [Entitic vol] 86.7 fL Normal 81.0-99.0 [facility] Comment on above: Performed By: #### C VDTBH #### [facility] [address] [place] [address] Dr. Sherry Quezada MONO # 0.5 103/ul Normal 0.3-0.8 [facility] Comment on above: Performed By: #### C VDTBH #### [facility] [address] [place] [address] Dr. Sherry Quezada Monocytes/100 WBC (Bld) 8.7 % Normal 1.7-12.0 [facility] Comment on above: Performed By: #### C VDTBH #### [facility] [address] [place] [address] Dr. Sherry Quezada NEUT # 3.6 103/ul Normal 1.4-6.5 [facility] Comment on above: Performed By: #### C VDTBH #### [facility] [address] [place] [address] Dr. Sherry Quezada Neutrophils/100 WBC (Bld) 63.4 % Normal 43.0-75.0 [facility] Comment on above: Performed By: #### C VDTBH #### [facility] [address] [place] [address] Dr. Sherry Quezada Platelet mean volume (Bld) [Entitic vol] 10.3 fL Normal 9.5-13.5 [facility] Comment on above: Performed By: #### C VDTBH #### [facility] [address] [address] [address] Sherry Quezada PLT 288 103/ul Normal 150-450 [facility] Comment on above: Performed By: #### C VDTBH #### [facility] [address] [place] [address] Dr. Sherry Quezada RBC 3.77 106/ul Critically low 4.20-5.40 [facility] Comment on above: Performed By: #### C VDTBH #### [facility] [address] [place] [address] Dr. Sherry Quezada WBC 5.8 103/ul Normal 4.0-11.0 [facility] Comment on above: Performed By: #### C VDTBH #### [facility] [address] [place] [address] Dr. Sherry Quezada FERRITINon 01-03-2022 Ferritin [Mass/Vol] 23.0 ng/mL Normal 8.0-252.0 [facility] Comment on above: Performed By: #### C BC #### [facility] [address] [place] [address] Dr. Sherry Quezada IRON AND TIBCon 01-03-2022 % SATURATION 5.0 % Normal [facility] Comment on above: Performed By: #### C BC #### [facility] [address] [place] [address] Dr. Sherry Quezada Iron [Mass/Vol] 19.0 ug/dL Critically low 50.0-170.0 [facility] Comment on above: Performed By: #### C BC #### [facility] [address] [place] [address] Dr. Sherry Quezada TIBC DIRECT 377.0 ug/dL Normal 250.0-450.0 [facility] Comment on above: Performed By: #### C BC #### [facility] [address] [place] [address] Dr. Sherry Quezada CBC AUTO DIFFon 11-22-2021 BASO # 0.1 103/ul Normal 0.0-0.1 [facility] Comment on above: Performed By: #### C VDTBH #### [facility] [address] [place] [address] Dr. Sherry Quezada Basophils/100 WBC (Bld) 1.5 % Normal 0.2-2.0 [facility] Comment on above: Performed By: #### C VDTBH #### [facility] [address] [place] [address] Dr. Sherry Quezada EO # 0.1 103/ul Normal 0.0-0.7 [facility] Comment on above: Performed By: #### C VDTBH #### [facility] [address] [place] [address] Dr. Sherry Quezada Eosinophils/100 WBC (Bld) 2.3 % Normal 0.9-7.0 [facility] Comment on above: Performed By: #### C VDTBH #### [facility] [address] [place] [address] Dr. Sherry Quezada Erythrocyte distribution width (RBC) [Ratio] 15.9 % Critically high 11.0-15.0 [facility] Comment on above: Performed By: #### C VDTBH #### [facility] [address] [place] [address] Dr. Sherry Quezada Hematocrit (Bld) [Volume fraction] 31.9 % Critically low 36.0-48.0 [facility] Comment on above: Performed By: #### C VDTBH #### [facility] [address] [place] [address] Dr. Sherry Quezada Hemoglobin (Bld) [Mass/Vol] 9.4 g/dL Critically low 12.0-16.0 [facility] Comment on above: Performed By: #### C VDTBH #### [facility] [address] [place] [address] Dr. Sherry Quezada IG # 0.03 10e3/ul Normal 0.00-0.03 [facility] Comment on above: Performed By: #### C VDTBH #### [facility] [address] [place] [address] Dr. Sherry Quezada IG % 0.6 % Critically high 0.0-0.5 [facility] Comment on above: Performed By: #### C VDTBH #### [facility] [address] [place] [address] Dr. Sherry Quezada LYMPH # 0.8 103/ul Critically low 1.2-3.8 [facility] Comment on above: Performed By: #### C VDTBH #### [facility] [address] [place] [address] Dr. Sherry Quezada Lymphocytes/100 WBC (Bld) 16.1 % Critically low 20.5-60.0 [facility] Comment on above: Performed By: #### C VDTBH #### [facility] [address] [place] [address] Dr. Sherry Quezada MANUAL DIFF REQ NO Normal [facility] Comment on above: Performed By: #### C VDTBH #### [facility] [address] [place] [address] Dr. Sherry Quezada MCH (RBC) [Entitic mass] 26.9 pg Normal 26.7-34.0 [facility] Comment on above: Performed By: #### C VDTBH #### [facility] [address] [place] [address] Dr. Sherry Quezada MCHC (RBC) [Mass/Vol] 29.5 g/dL Critically low 29.9-35.2 [facility] Comment on above: Performed By: #### C VDTBH #### [facility] [address] [place] [address] Dr. Sherry Quezada MCV (RBC) [Entitic vol] 91.4 fL Normal 81.0-99.0 [facility] Comment on above: Performed By: #### C VDTBH #### [facility] [address] [place] [address] Dr. Sherry Quezada MONO # 0.3 103/ul Normal 0.3-0.8 [facility] Comment on above: Performed By: #### C VDTBH #### [facility] [address] [place] [address] Dr. Sherry Quezada Monocytes/100 WBC (Bld) 6.5 % Normal 1.7-12.0 [facility] Comment on above: Performed By: #### C VDTBH #### [facility] [address] [place] [address] Dr. Sherry Quezada NEUT # 3.5 103/ul Normal 1.4-6.5 [facility] Comment on above: Performed By: #### C VDTBH #### [facility] [address] [place] [address] Dr. Sherry Quezada Neutrophils/100 WBC (Bld) 73.0 % Normal 43.0-75.0 [facility] Comment on above: Performed By: #### C VDTBH #### [facility] [address] [place] [address] Dr. Sherry Quezada Platelet mean volume (Bld) [Entitic vol] 10.1 fL Normal 9.5-13.5 [facility] Comment on above: Performed By: #### C VDTBH #### [facility] [address] [place] [address] Dr. Sherry Quezada PLT 283 103/ul Normal 150-450 [facility] Comment on above: Performed By: #### C VDTBH #### [facility] [address] [place] [address] Dr. Sherry Quezada RBC 3.49 106/ul Critically low 4.20-5.40 [facility] Comment on above: Performed By: #### C VDTBH #### [facility] [address] [place] [address] Dr. Sherry Quezada WBC 4.8 103/ul Normal 4.0-11.0 [facility] Comment on above: Performed By: #### C VDTBH #### [facility] [address] [place] [address] Dr. Sherry Quezada FERRITINon 11-22-2021 Ferritin [Mass/Vol] 20.0 ng/mL Normal 11.1-264.0 [facility] Comment on above: Performed By: #### C BC #### [facility] [address] [place] [address] Dr. Sherry Quezada IRON AND TIBCon 11-22-2021 % SATURATION 3.9 % Normal [facility] Comment on above: Performed By: #### C BC #### [facility] [address] [place] [address] Dr. Sherry Quezada Iron [Mass/Vol] 15.0 ug/dL Critically low 37.0-170.0 [facility] Comment on above: Performed By: #### C BC #### [facility] [address] [place] [address] Dr. Sherry Quezada TIBC DIRECT 386.0 ug/dL Normal 261.0-497.0 [facility] Comment on above: Performed By: #### C BC #### [facility] [address] [place] [address] Dr. Sherry Quezada PROF 14(COMP METB)on 022 Albumin [Mass/Vol] 3.2 g/dL Critically low 3.4-5.0 [facility] Comment on above: Performed By: #### C BC #### [facility] [address] [place] [address] Dr. Sherry Quezada Albumin/Globulin [Mass ratio] 0.9 {ratio} Normal [facility] Comment on above: Performed By: #### C BC #### [facility] [address] [place] [address] Dr. Sherry Quezada ALP [Catalytic activity/Vol] 96 U/L Normal 46-116 [facility] Comment on above: Performed By: #### C BC #### [facility] [address] [place] [address] Dr. Sherry Quezada ALT [Catalytic activity/Vol] 19 U/L Normal 14-59 [facility] Comment on above: Performed By: #### C BC #### [facility] [address] [place] [address] Dr. Sherry Quezada Anion gap [Moles/Vol] 14.4 mmol/L Normal [facility] Comment on above: Performed By: #### C BC #### [facility] [address] [place] [address] Dr. Sherry Quezada AST [Catalytic activity/Vol] 14 U/L Critically low 15-37 [facility] Comment on above: Performed By: #### C BC #### [facility] [address] [place] [address] Dr. Sherry Quezada Bilirubin [Mass/Vol] 0.5 mg/dL Normal 0.2-1.3 [facility] Comment on above: Performed By: #### C BC #### [facility] [address] [place] [address] Dr. Sherry Quezada Calcium [Mass/Vol] 8.4 mg/dL Critically low 8.5-10.1 [facility] Comment on above: Performed By: #### C BC #### [facility] [address] [place] [address] Dr. Sherry Quezada Chloride [Moles/Vol] 106 mmol/L Normal 98-107 [facility] Comment on above: Performed By: #### C BC #### [facility] [address] [place] [address] Dr. Sherry Quezada CO2 [Moles/Vol] 25.1 mmol/L Normal 22.0-30.0 [facility] Comment on above: Performed By: #### C BC #### [facility] [address] [place] [address] Dr. Sherry Quezada Creatinine [Mass/Vol] 0.90 mg/dL Normal 0.52-1.04 [facility] Comment on above: Performed By: #### C BC #### [facility] [address] [place] [address] Dr. Sherry Quezada EGFR-AF CUBAN >60 Normal >=60 [facility] Comment on above: Performed By: #### C BC #### [facility] [address] [place] [address] Dr. Sherry Quezada EGFR-NON AF CUBAN >60 Normal >=60 [facility] Comment on above: Performed By: #### C BC #### [facility] [address] [place] [address] Dr. Sherry Quezada Globulin (S) [Mass/Vol] 3.6 g/dL Normal [facility] Comment on above: Performed By: #### C BC #### [facility] [address] [address] [address] Sherry Quezada Glucose [Mass/Vol] 117 mg/dL Critically high 74-106 [facility] Comment on above: Performed By: #### C BC #### [facility] [address] [address] [address] Sherry Quezada Potassium [Moles/Vol] 4.5 mmol/L Normal 3.4-5.0 [facility] Comment on above: Performed By: #### C BC #### [facility] [address] [address] [address] Sherry Quezada Protein [Mass/Vol] 6.8 g/dL Normal 6.1-8.2 [facility] Comment on above: Performed By: #### C BC #### [facility] [address] [address] [address] Sherry Quezada Sodium [Moles/Vol] 141 mmol/L Normal 137-145 [facility] Comment on above: Performed By: #### C BC #### [facility] [address] [address] [address] Sherry Quezada Urea nitrogen [Mass/Vol] 12.0 mg/dL Normal 7.0-18.0 [facility] Comment on above: Performed By: #### C BC #### [facility] [address] [address] [address] Sherry Quezada Urea nitrogen/Creatinine [Mass ratio] 13.3 mg/mg Normal [facility] Comment on above: Performed By: #### C BC #### [facility] [address] [address] [address] Sherry Quezada Basophils Auto (Bld) [#/Vol] on 01-19-2021 Basophils (Bld) [#/Vol] 0.1 10*3/uL 0.0-0.2 [facility] Basophils (Bld) [#/Vol] Automated basoph il count 0.0-0.2 [facility] Basophils/100 WBC Auto (Bld) on 01-19-2021 Basophils/100 WBC (Bld) 2.1 % . F [facility] Basophils/100 WBC (Bld) Automated basophil % . [facility] Blood anisocytosis detection on 01-19-2021 Anisocytosis Ql (Bld) Marked [facility] Anisocytosis Ql (Bld) Blood anisocytosis detection [facility] CT biopsyon 01-19-2021 Transferrin [Mass/Vol] 285 mg/dL 180-[facility] Eosin[facility] Auto (Bld) [#/Vo l]on 01-19-2021 Eosinophils (Bld) [#/Vol] 0.1 10*3/uL 0.0-0.45 [facility] Eosinophils (Bld) [#/Vol] Automated eosinophil count 0.0-0.45 [facility] Eosinophils/100 WBC Auto (Bl d)on 01-19-2021 Eosinophils/100 WBC (Bld) 2.2 % . [facility] Eosinophils/100 WBC (Bld) Automated eosinophil % . [facility] Erythrocyte distribution wid th Auto (RBC) [Ratio]on 01-19-2021 Erythrocyte distribution width (RBC) [Ratio] 21.4 % High 11.9-15.3 [facility] Erythrocyte distribution width (RBC) [Ratio] Erythrocyte distribution width [Ratio] by Automated count High 11.9-15.3 [facility] Ferritin [Mass/volume] in Se rum or Plasmaon 01-19-2021 Ferritin [Mass/Vol] 6.2 ng/mL Low 11-306.8 [facility] Ferritin [Mass/Vol] Ferritin [Mass/volume] in Serum or Plasma Low 11-306.8 [facility] Hematocrit Auto (Bld) [Volum e fraction]on 01-19-2021 Hematocrit (Bld) [Volume fraction] 26.2 % Low 34.0-46.4 [facility] Hematocrit (Bld) [Volume fraction] Hematocrit [Volume Fraction] of Blood by Automated count Low 34.0-46.4 [facility] Hemoglobin [Mass/volume] in Bloodon 01-19-2021 Hemoglobin (Bld) [Mass/Vol] 7.7 g/dL Low 11.8-15.4 [facility] Hemoglobin (Bld) [Mass/Vol] Hemoglobin [Mass/volume] in Blood Low 11.8-15.4 [facility] Hypochromia detectionon 01-03 Hypochromia Ql (Bld) Moderate [facility] Hypochromia Ql (Bld) Hypochromia detection [facility] Intravascular ultrasound (IV US) of initial vesselon 01-19-2021 Intravascular ultrasound (IVUS) of initial vessel Intravascular ultrasound (IVUS) of initial vessel 180-380 [facility] Iron [Mass/volume] in Serum or Plasmaon 01-19-2021 Iron [Mass/Vol] 13 ug/dL Low 40-150 [facility] Iron [Mass/Vol] Iron [Mass/volume] in Serum or Plasma Low 40-150 [facility] Iron binding capacity [Mass/ volume] in Serum or Plasmaon 01-19-2021 Iron binding capacity [Mass/Vol] 399 ug/dL 255-450 [facility] Iron binding capacity [Mass/Vol] Iron binding capacity [Mass/volume] in Serum or Plasma 255-450 [facility] Iron saturation [Mass Fracti on] in Serum or Plasmaon 01-19-2021 Iron saturation [Mass fraction] 3.0 % Low 20-50 [facility] Iron saturation [Mass fraction] Iron saturation [Mass Fraction] in Serum or Plasma Low 20-50 [facility] Laboratory - Hematology and Cell countson 01-19-2021 Nucleated RBC/100 WBC (Bld) [Ratio] 0.3 % 0-0.5 [facility] Leukocytes [#/volume] in Blo od by Automated counton 01-19-2021 WBC (Bld) [#/Vol] 4.1 10*3/uL Low 4.5-11.0 [facility] Lymphocytes Auto (Bld) [#/Vo l]on 01-19-2021 Lymphocytes (Bld) [#/Vol] 1.0 10*3/uL 1.00-4.8 [facility] Lymphocytes (Bld) [#/Vol] Lymphocytes [#/volume] in Blood by Automated count 1.00-4.8 [facility] Lymphocytes/100 WBC Auto (Bl d)on 01-19-2021 Lymphocytes/100 WBC (Bld) 24.0 % . [facility] Lymphocytes/100 WBC (Bld) Lymphocytes/100 leukocytes in Blood by Automated count . [facility] MCH Auto (RBC) [Entitic mass ]on 01-19-2021 MCH (RBC) [Entitic mass] 21.9 pg Low 24.7-34.3 [facility] MCH (RBC) [Entitic mass] MCH [Entitic mass] by Automated count Low 24.7-34.3 [facility] MCHC Auto (RBC) [Mass/Vol]on 01-19-2021 MCHC (RBC) [Mass/Vol] 29.5 g/dL Low 32.0-35.0 [facility] MCHC (RBC) [Mass/Vol] MCHC [Mass/volume] by Automated count Low 32.0-35.0 [facility] MCV Auto (RBC) [Entitic vol] on 01-19-2021 MCV (RBC) [Entitic vol] 74.4 fL Low 80-100 F [facility] MCV (RBC) [Entitic vol] MCV [Entitic vol ume] by Automated count Low 80-100 [facility] Monocytes Auto (Bld) [#/Vol] on 01-19-2021 Monocytes (Bld) [#/Vol] 0.4 10*3/uL 0.0-0.8 [facility] Monocytes (Bld) [#/Vol] Automated blood monocyte count 0.0-0.8 [facility] Monocytes/100 WBC Auto (Bld) on 01-19-2021 Monocytes/100 WBC (Bld) 9.1 % . F [facility] Monocytes/100 WBC (Bld) Automated monocyte % . [facility] Neutrophils Auto (Bld) [#/Vo l]on 01-19-2021 Neutrophils (Bld) [#/Vol] 2.5 10*3/uL 1.8-7.7 [facility] Neutrophils (Bld) [#/Vol] Neutrophils [#/volume] in Blood by Automated count 1.8-7.7 [facility] Neutrophils/100 WBC Auto (Bl d)on 01-19-2021 Neutrophils/100 WBC (Bld) 62.6 % . [facility] Neutrophils/100 WBC (Bld) Automated neutrophil % . [facility] No Panel Informationon 01-19 Microcytosis Moderate [facility] Platelet Estimate Normal Normal [facility] Platelet Morphology Comment Normal Normal [facility] Ovalocyte detectionon 2020 Ovalocytes LM Ql (Bld) Slight Fi [facility] Ovalocytes LM Ql (Bld) Ovalocyte detection [facility] Platelet mean volume Auto (B ld) [Entitic vol]on 01-19-2021 Platelet mean volume (Bld) [Entitic vol] 8.3 fL 6.3-10.7 [facility] Platelet mean volume (Bld) [Entitic vol] Platelet mean volume [Entitic volume] in Blood by Automated count 6.3-10.7 [facility] Platelets Auto (Bld) [#/Vol] on 01-19-2021 Platelets (Bld) [#/Vol] 341 10*3/uL 150-450 [facility] Platelets (Bld) [#/Vol] Platelets [#/vol ume] in Blood by Automated count 150-450 [facility] Polychromasia [Presence] in Blood by Light microscopyon 01-19-2021 Polychromasia LM Ql (Bld) Slight [facility] Polychromasia LM Ql (Bld) Polychromasia [Presence] in Blood by Light microscopy [facility] RBC Auto (Bld) [#/Vol]on RBC (Bld) [#/Vol] 3.52 10*6/uL Low 3.60-5.00 [facility] RBC (Bld) [#/Vol] Erythrocytes [#/volume] in Blood by Automated count Low 3.60-5.00 [facility] RBC morphologyon 01-19-2021 RBC morphology finding Nom (Bld) N/A [facility] RBC morphology finding Nom (Bld) RBC morphology [facility] Teardrop cell detectionon Dacrocytes LM Ql (Bld) Slight Fi [facility] Dacrocytes LM Ql (Bld) Teardrop cell detection [facility] WBC Auto (Bld) [#/Vol]on WBC (Bld) [#/Vol] Leukocytes [#/volume] in Blood by Automated count 3.8-11.6 [facility] Bilirubin Test strip Ql (U)o n 01-11-2020 Bilirubin Ql (U) Bilirubin.total [Presence] in Urine by Test strip Negative [facility] Bilirubin Ql (U) Negative Negative [facility] Color Auto (U)on 01-11-2020 Color (U) Yellow Yellow [facility] Color (U) Color of Urine by Auto Yellow [facility] Ketones Auto test strip (U) [Mass/Vol]on 01-11-2020 Ketones (U) [Mass/Vol] Negative Negative [facility] Ketones (U) [Mass/Vol] Urine ketones measurement by automated test strip (mass/volume) Negative [facility] Nitrite Test strip Ql (U)on 01-11-2020 Nitrite Ql (U) Nitrite [Presence] in Urine by Test strip Negative [facility] Nitrite Ql (U) Negative Negative [facility] Protein Auto test strip (U) [Mass/Vol]on 01-11-2020 Protein (U) [Mass/Vol] Negative Negative [facility] Protein (U) [Mass/Vol] Urine protein measurement by automated test strip (mass/volume) Negative [facility] Specific gravity Auto test s trip (U) [Rel density]on 01-11-2020 Specific gravity (U) [Rel density] 1.009 1.001-1.030 [facility] Specific gravity (U) [Rel density] Specific gravity of Urine by Automated test strip 1.001-1.030 [facility] Urine clarity by refractomet ry automatedon 01-11-2020 Clarity Refractometry automated (U) Clear Clear [facility] Clarity Refractometry automated (U) Urine clarity by refractometry automated Clear [facility] Urine glucose measurement by automated test strip (mass/volume)on 01-11-2020 Glucose Auto test strip (U) [Mass/Vol] Normal mg/dL Normal [facility] Glucose Auto test strip (U) [Mass/Vol] Urine glucose measurement by automated test strip (mass/volume) Normal [facility] Urine hemoglobin detection b y automated test stripon 01-11-2020 Hemoglobin Auto test strip Ql (U) Negative Negative [facility] Hemoglobin Auto test strip Ql (U) Urine hemoglobin detection by automated test strip Negative [facility] Urine leukocyte esterase det ection by automated test stripon 01-11-2020 Leukocyte esterase Auto test strip Ql (U) Negative Negative [facility] Leukocyte esterase Auto test strip Ql (U) Urine leukocyte esterase detection by automated test strip Negative [facility] Urobilinogen Auto test strip (U) [Mass/Vol]on 01-11-2020 Urobilinogen (U) [Mass/Vol] Normal mg/dL Normal [facility] Urobilinogen (U) [Mass/Vol] Urine urobilinogen measurement by automated test strip (mass/volume) Normal [facility] pH Auto test strip (U)on pH (U) 6.5 [pH] 5.0-9.0 [facility] pH (U) Urine pH measurement by automated test strip 5.0-9.0 [facility] Albumin [Mass/volume] in Ser um or Plasmaon 01-01-2020 Albumin [Mass/Vol] 3.2 g/dL 3.2-5.5 [facility] Albumin [Mass/Vol] Albumin [Mass/volume] in Serum or Plasma 3.2-5.5 [facility] Alkaline phosphatase [Enzyma tic activity/volume] in Serum or Plasmaon 01-01-2020 ALP [Catalytic activity/Vol] Alkaline phosphatase [Enzymatic activity/volume] in Serum or Plasma High 32-92 [facility] Aspartate aminotransferase [ Enzymatic activity/volume] in Serum or Plasmaon 01-01-2020 AST [Catalytic activity/Vol] Aspartate aminotransferase [Enzymatic activity/volume] in Serum or Plasma 10-42 [facility] Bilirubin.total [Mass/volume ] in Serum or Plasmaon 01-01-2020 Bilirubin [Mass/Vol] Bilirubin.total [Mass/volume] in Serum or Plasma 0.3-1.2 [facility] Calcium [Mass/volume] in Ser um or Plasmaon 01-01-2020 Calcium [Mass/Vol] Calcium [Mass/volume] in Serum or Plasma 8.2-10.2 [facility] Carbon dioxide, total [Moles /volume] in Serum or Plasmaon 01-01-2020 CO2 [Moles/Vol] Carbon dioxide, total [Moles/volume] in Serum or Plasma Low 22.0-30.0 [facility] Chloride [Moles/volume] in S rian or Plasmaon 01-01-2020 Chloride [Moles/Vol] Chloride [Moles/volume] in Serum or Plasma 95-114 [facility] Creatinine and Glomerular fi ltration rate.predicted panel (S/P/Bld)on 01-01-2020 Creatinine [Mass/Vol] 0.85 mg/dL 0.44-1.03 [facility] Serum or plasma creatinine measurement with calculation of estimated glomerular filtr Serum or plasma creatinine measurement with calculation of estimated glomerular filtr 0.44-1.03 [facility] Estimated glomerular filtrat ion rate (GFR) non- Americanon 01-01-2020 GFR/1.73 sq M.predicted among non-blacks MDRD (S/P/Bld) [Vol rate/Area] mL/min/{1.73_m2} [facility] GFR/1.73 sq M.predicted among non-blacks MDRD (S/P/Bld) [Vol rate/Area] Estimated glomerular filtration rate (GFR) non- [facility] Folate [Mass/volume] in Seru m or Plasmaon 01-01-2020 Folate [Mass/Vol] 6.7 ng/mL >4.0 [facility] Comment on above: Folate reference ran ge: >5.9 ng/mlThe WHO technical consultation on folate and vitamin [id number] has determined that folate concentrations lessthan 4 ng/ml are considered deficient. Folate [Mass/Vol] Folate [Mass/volume] in Serum or Plasma >4.0 [facility] Comment on above: Folate reference ran ge: >5.9 ng/mlThe WHO technical consultation on folate and vitamin [id number] has determined that folate concentrations lessthan 4 ng/ml are considered deficient. Globulin Calc (S) [Mass/Vol] on 01-01-2020 Globulin (S) [Mass/Vol] 3.3 g/dL [facility] Globulin (S) [Mass/Vol] Serum globulin measurement by calculation (mass/volume) [facility] Glucose [Mass/volume] in Ser um or Plasmaon 01-01-2020 Glucose [Mass/Vol] Glucose [Mass/volume] in Serum or Plasma High 70-100 [facility] Comment on above: ADA recommended refe rence rangeRandom Glucose Reference Range is dependent on time and content of last meal. Glucose of more than 200 mg/dL in a nonstressed, ambulatory subject supports the diagnosis of Diabetes Mellitus. Laboratory - Chemistry and C hemistry - challengeon 01-01-2020 Cobalamin (Vitamin B12) [Mass/Vol] 261 pg/mL 180-914 [facility] GFR/1.73 sq M.predicted MDRD (S/P/Bld) [Vol rate/Area] mL/min/{1.73_m2} [facility] Comment on above: GFR estimated refere nce range: According to KDOQI guidelines, <60 ml/min/1.73m2 is sufficient to diagnose a patient with chronic kidney disease. Laboratory - Hematology and Cell countson 01-01-2020 WBC (Bld) [#/Vol] 6.1 10*3/uL 4.5-11.0 [facility] No Panel Informationon 12-31 Pharmacy Creatinine Clearance (Chem [id number] [facility] Potassium [Moles/volume] in Serum or Plasmaon 01-01-2020 Potassium [Moles/Vol] Potassium [Moles/volume] in Serum or Plasma 3.5-5.1 [facility] Protein [Mass/volume] in Ser um or Plasmaon 01-01-2020 Protein [Mass/Vol] 6.5 g/dL 6.1-7.9 [facility] Protein [Mass/Vol] Protein [Mass/volume] in Serum or Plasma 6.1-7.9 [facility] Serum or plasma alanine liz otransferase measurement without P-5'-P (enzymatic activion 01-01-2020 ALT No additional P-5'-P [Catalytic activity/Vol] 13 U/L [facility] ALT No additional P-5'-P [Catalytic activity/Vol] Serum or plasma alanine aminotransferase measurement without P-5'-P (enzymatic activi [facility] Serum or plasma albumin/glob ulin mass ratioon 01-01-2020 Albumin/Globulin [Mass ratio] 1.0 {ratio} [facility] Albumin/Globulin [Mass ratio] Serum or plasma albumin/globulin mass ratio [facility] Serum or plasma alkaline bria sphatase measurement (enzymatic activity/volume)on 01-01-2020 ALP [Catalytic activity/Vol] 93 U/L High 32-92 [facility] Serum or plasma aspartate am inotransferase measurement (enzymatic activity/volume)on 01-01-2020 AST [Catalytic activity/Vol] 13 U/L 10-42 [facility] Serum or plasma calcium chris urement (mass/volume)on 01-01-2020 Calcium [Mass/Vol] 8.6 mg/dL 8.2-10.2 [facility] Serum or plasma chloride chiara surement (moles/volume)on 01-01-2020 Chloride [Moles/Vol] 107 mmol/L 95-114 [facility] Serum or plasma glucose chris urement (mass/volume)on 01-01-2020 Glucose [Mass/Vol] 108 mg/dL High 70-100 [facility] Comment on above: ADA recommended refe rence rangeRandom Glucose Reference Range is dependent on time and content of last meal. Glucose of more than 200 mg/dL in a nonstressed, ambulatory subject supports the diagnosis of Diabetes Mellitus. Serum or plasma potassium me asurement (moles/volume)on 01-01-2020 Potassium [Moles/Vol] 4.4 mmol/L 3.5-5.1 [facility] Serum or plasma sodium measu rement (moles/volume)on 01-01-2020 Sodium [Moles/Vol] 137 mmol/L 136-146 [facility] Serum or plasma total biliru bin measurement (mass/volume)on 01-01-2020 Bilirubin [Mass/Vol] 0.8 mg/dL 0.3-1.2 [facility] Serum or plasma total carbon dioxide measurement (moles/volume)on 01-01-2020 CO2 [Moles/Vol] 20.8 mmol/L Low 22.0-30.0 [facility] Serum or plasma urea nitroge n measurement (mass/volume)on 01-01-2020 Urea nitrogen [Mass/Vol] 16 mg/dL 9-23 [facility] Sodium [Moles/volume] in Ser um or Plasmaon 01-01-2020 Sodium [Moles/Vol] Sodium [Moles/volume] in Serum or Plasma 136-146 [facility] Urea nitrogen [Mass/volume] in Serum or Plasmaon 01-01-2020 Urea nitrogen [Mass/Vol] Urea nitrogen [Mass/volume] in Serum or Plasma 04-27 [facility] Vital Signs Date Time Vital Sign Value Performing Clinician Facility 12-08-2024 13:49-0400 Body height 170.18 cm Shalom Ball DO Work Phone: [facility] 12-08-2024 13:49-0400 Body mass index (BMI) [Ratio] 37.2 kg/m2 Shalom Ball DO Work Phone: [facility] 12-08-2024 13:49-0400 Body weight 107.72 kg Shalom Ball DO Work Phone: [facility] 12-08-2024 13:49-0400 Diastolic blood pressure 83 mm[Hg] Shalom Ball DO Work Phone: [facility] 12-08-2024 13:49-0400 Heart rate 101 /min Shalom Ball DO Work Phone: [facility] 12-08-2024 13:49-0400 Respiratory rate 12 /min Shalom Ball DO Work Phone: [facility] 12-08-2024 13:49-0400 Systolic blood pressure 142 mm[Hg] Shalom Ball DO Work Phone: [facility] 11-19-2024 14:22-0400 Body height 170.18 cm Shalom Ball DO Work Phone: [facility] 11-19-2024 14:22-0400 Body mass index (BMI) [Ratio] 38.7 kg/m2 Shalom Ball DO Work Phone: [facility] 11-19-2024 14:22-0400 Body weight 112.03 kg Shalom Ball DO Work Phone: [facility] 11-19-2024 14:22-0400 Diastolic blood pressure 81 mm[Hg] Shalom Ball DO Work Phone: [facility] 11-19-2024 14:22-0400 Heart rate 86 /min Shalom Ball DO Work Phone: [facility] 11-19-2024 14:22-0400 Respiratory rate 20 /min Shalom Ball DO Work Phone: [facility] 11-19-2024 14:22-0400 SaO2% (BldA) [Mass fraction] 98 % Shalom Ball DO Work Phone: [facility] 11-19-2024 14:22-0400 Systolic blood pressure 143 mm[Hg] Shalom Ball DO Work Phone: [facility] 09-09-2024 13:33-0500 Body height 170.18 cm Shalom Ball DO Work Phone: [facility] 09-09-2024 13:33-0500 Body mass index (BMI) [Ratio] 38.2 kg/m2 Shalom Ball DO Work Phone: [facility] 09-09-2024 13:33-0500 Body weight 110.93 kg Shalom Ball DO Work Phone: [facility] 09-09-2024 13:33-0500 Diastolic blood pressure 83 mm[Hg] Shalom Ball DO Work Phone: [facility] 09-09-2024 13:33-0500 Heart rate 96 /min Shalom Ball DO Work Phone: [facility] 09-09-2024 13:33-0500 Respiratory rate 12 /min Shalom Ball DO Work Phone: [facility] 09-09-2024 13:33-0500 Systolic blood pressure 140 mm[Hg] Shalom Ball DO Work Phone: [facility] 09-07-2024 13:00-0500 Diastolic blood pressure 77 mm[Hg] Shalom Ball DO Work Phone: [facility] 09-07-2024 13:00-0500 Heart rate 98 /min Shalom Ball DO Work Phone: [facility] 09-07-2024 13:00-0500 Respiratory rate 19 /min Shalom Ball DO Work Phone: [facility] 09-07-2024 13:00-0500 SaO2% (BldA) [Mass fraction] 95 % Shalom Ball DO Work Phone: [facility] 09-07-2024 13:00-0500 Systolic blood pressure 141 mm[Hg] Shalom Ball DO Work Phone: [facility] 08-31-2024 13:07-0500 Body temperature 98.1 [degF] Shalom Ball DO Work Phone: [facility] 08-26-2024 10:58-0500 Body temperature 97.9 [degF] [facility] 08-26-2024 10:58-0500 Body weight 110.22 kg [facility] 08-26-2024 10:58-0500 Diastolic blood pressure 79 mm[Hg] [facility] 08-26-2024 10:58-0500 Heart rate 88 /min [facility] 08-26-2024 10:58-0500 Respiratory rate 16 /min [facility] 08-26-2024 10:58-0500 SaO2% (BldA) [Mass fraction] 97 % [facility] 08-26-2024 10:58-0500 Systolic blood pressure 117 mm[Hg] [facility] 03-09-2024 13:47-0400 Body height 168.91 cm DO Shalom Ball Work Phone: [facility] 03-09-2024 13:47-0400 Body mass index (BMI) [Ratio] 38.7 kg/m2 DO Shalom Ball Work Phone: [facility] 03-09-2024 13:47-0400 Body weight 110.44 kg DO Shalom Ball Work Phone: [facility] 03-09-2024 13:47-0400 Diastolic blood pressure 80 mm[Hg] DO Shalom Ball Work Phone: [facility] 03-09-2024 13:47-0400 Heart rate 87 /min DO Shalom Ball Work Phone: [facility] 03-09-2024 13:47-0400 Respiratory rate 12 /min DO Shalom Ball Work Phone: [facility] 03-09-2024 13:47-0400 Systolic blood pressure 122 mm[Hg] DO Shalom Ball Work Phone: [facility] 02-13-2024 13:24-0400 Body temperature 97.9 [degF] DO Shalom Ball Work Phone: [facility] 02-13-2024 13:24-0400 Body weight 110.67 kg DO Shalom Ball Work Phone: [facility] 02-13-2024 13:24-0400 Diastolic blood pressure 77 mm[Hg] DO Shalom Ball Work Phone: [facility] 02-13-2024 13:24-0400 Heart rate 97 /min DO Shalom Ball Work Phone: [facility] 02-13-2024 13:24-0400 Respiratory rate 16 /min DO Shalom Ball Work Phone: [facility] 02-13-2024 13:24-0400 SaO2% (BldA) [Mass fraction] 98 % DO Shalom Ball Work Phone: [facility] 02-13-2024 13:24-0400 Systolic blood pressure 119 mm[Hg] DO Shalom Ball Work Phone: [facility] 01-16-2024 13:49-0400 Body height 168.91 cm DO Shalom Ball Work Phone: [facility] 01-16-2024 13:49-0400 Body mass index (BMI) [Ratio] 38.9 kg/m2 DO Shalom Ball Work Phone: [facility] 01-16-2024 13:49-0400 Body weight 111 kg DO Shalom Ball Work Phone: [facility] 11-26-2023 16:02-0400 Diastolic blood pressure 78 mm[Hg] DO Shalom Ball Work Phone: [facility] 11-26-2023 16:02-0400 Heart rate 82 /min DO Shalom Ball Work Phone: [facility] 11-26-2023 16:02-0400 Respiratory rate 18 /min DO Shalom Ball Work Phone: [facility] 11-26-2023 16:02-0400 SaO2% (BldA) [Mass fraction] 99 % DO Shalom Ball Work Phone: [facility] 11-26-2023 16:02-0400 Systolic blood pressure 138 mm[Hg] DO Shalom Ball Work Phone: [facility] 11-26-2023 14:31-0400 Body temperature 98.1 [degF] DO Shalom Ball Work Phone: [facility] 11-12-2023 12:57-0400 Body height 168.91 cm DO Shalom Ball Work Phone: [facility] 11-12-2023 12:57-0400 Body mass index (BMI) [Ratio] 39 kg/m2 DO Shalom Ball Work Phone: [facility] 11-12-2023 12:57-0400 Body temperature 97.4 [degF] DO Shalom Ball Work Phone: [facility] 11-12-2023 12:57-0400 Body weight 111.35 kg DO Shalom Ball Work Phone: [facility] 11-12-2023 12:57-0400 Diastolic blood pressure 71 mm[Hg] DO Shalom Ball Work Phone: [facility] 11-12-2023 12:57-0400 Heart rate 81 /min DO Shalom Ball Work Phone: [facility] 11-12-2023 12:57-0400 Respiratory rate 18 /min DO Shalom Ball Work Phone: [facility] 11-12-2023 12:57-0400 SaO2% (BldA) [Mass fraction] 97 % DO Shalom Ball Work Phone: [facility] 11-12-2023 12:57-0400 Systolic blood pressure 133 mm[Hg] DO Shalom Ball Work Phone: [facility] 11-05-2023 13:38-0400 Body height 168.91 cm DO Shalom Ball Work Phone: [facility] 11-05-2023 13:38-0400 Body mass index (BMI) [Ratio] 39.1 kg/m2 DO Shalom Ball Work Phone: [facility] 11-05-2023 13:38-0400 Body weight 111.69 kg DO Shalom Ball Work Phone: [facility] 11-05-2023 13:38-0400 Diastolic blood pressure 81 mm[Hg] DO Shalom Ball Work Phone: [facility] 11-05-2023 13:38-0400 Heart rate 80 /min DO Shalom Ball Work Phone: [facility] 11-05-2023 13:38-0400 Respiratory rate 12 /min DO Shalom Ball Work Phone: [facility] 11-05-2023 13:38-0400 Systolic blood pressure 139 mm[Hg] DO Shalom Ball Work Phone: [facility] 08-14-2023 13:30-0500 Body height 168.91 cm Shalom Ball Other [facility] 08-14-2023 13:30-0500 Body mass index (BMI) [Ratio] 39.2 kg/m2 Shalom Ball Other [facility] [email or web address] Other 08-14-2023 13:30-0500 Body weight 111.86 kg Shalom Ball Other [facility] [email or web address] Other 08-14-2023 13:30-0500 Body weight 111.85 kg DO Shalom Ball Work Phone: [facility] 08-14-2023 13:30-0500 Diastolic blood pressure 76 mm[Hg] Shalom Ball Other [facility] 08-14-2023 13:30-0500 Respiratory rate 12 /min Shalom Ball Other [facility] [email or web address] Other 08-14-2023 13:30-0500 Systolic blood pressure 116 mm[Hg] Shalom Ball Other [facility] 08-13-2023 12:57-0500 Body height 167.64 cm DO Shalom Ball Work Phone: [facility] 08-13-2023 12:57-0500 Body weight 111.67 kg DO Shalom Ball Work Phone: [facility] 08-13-2023 12:57-0500 Diastolic blood pressure 77 mm[Hg] DO Shalom Ball Work Phone: [facility] 08-13-2023 12:57-0500 Heart rate 76 /min DO Shalom Ball Work Phone: [facility] 08-13-2023 12:57-0500 Respiratory rate 20 /min DO Shalom Ball Work Phone: [facility] 08-13-2023 12:57-0500 SaO2% (BldA) [Mass fraction] 99 % DO Shalom Ball Work Phone: [facility] 08-13-2023 12:57-0500 Systolic blood pressure 124 mm[Hg] DO Shalom Ball Work Phone: [facility] 08-06-2023 13:30-0500 Body height 168.91 cm Ricky Benson Other [facility] 08-06-2023 13:30-0500 Body mass index (BMI) [Ratio] 38.15 kg/m2 Ricky Benson Other [facility] [email or web address] Other 08-06-2023 13:30-0500 Body weight 108.86 kg Ricky Benson Other [facility] 08-06-2023 13:30-0500 Diastolic blood pressure 74 mm[Hg] Ricky Benson Other [facility] 08-06-2023 13:30-0500 Systolic blood pressure 137 mm[Hg] Ricky Benson Other [facility] 06-13-2023 13:00-0500 Body temperature 97.2 [degF] DO Shalom Ball Work Phone: [facility] 06-13-2023 13:00-0500 Body weight 111.58 kg DO Shalom Ball Work Phone: [facility] 06-13-2023 13:00-0500 Diastolic blood pressure 75 mm[Hg] DO Shalom Ball Work Phone: [facility] 06-13-2023 13:00-0500 Heart rate 88 /min DO Shalom Ball Work Phone: [facility] 06-13-2023 13:00-0500 Respiratory rate 16 /min DO Shalom Ball Work Phone: [facility] 06-13-2023 13:00-0500 SaO2% (BldA) [Mass fraction] 95 % DO Shalom Ball Work Phone: [facility] 06-13-2023 13:00-0500 Systolic blood pressure 121 mm[Hg] DO Shalom Ball Work Phone: [facility] 05-15-2023 14:32-0400 Diastolic blood pressure 60 mm[Hg] DO Shalom Ball Work Phone: [facility] 05-15-2023 14:32-0400 Heart rate 75 /min DO Shalom Ball Work Phone: [facility] 05-15-2023 14:32-0400 Respiratory rate 18 /min DO Shalom Ball Work Phone: [facility] 05-15-2023 14:32-0400 SaO2% (BldA) [Mass fraction] 97 % DO Shalom Ball Work Phone: [facility] 05-15-2023 14:32-0400 Systolic blood pressure 107 mm[Hg] DO Shalom Ball Work Phone: [facility] 05-15-2023 12:04-0400 Body height 168.91 cm DO Shalom Ball Work Phone: [facility] 05-15-2023 12:04-0400 Body temperature 98.1 [degF] DO Shalom Ball Work Phone: [facility] 05-15-2023 12:04-0400 Body weight 109.76 kg DO Shalom Ball Work Phone: [facility] 05-09-2023 13:17-0400 Body temperature 97.9 [degF] DO Shalom [facility] [facility] 05-09-2023 13:17-0400 Diastolic blood pressure 65 mm[Hg] DO Shalom Ball Work Phone: [facility] 05-09-2023 13:17-0400 Heart rate 110 /min DO Shalom Ball Work Phone: [facility] 05-09-2023 13:17-0400 Respiratory rate 18 /min DO Shalom Ball Work Phone: [facility] 05-09-2023 13:17-0400 SaO2% (BldA) [Mass fraction] 99 % DO Shalom Ball Work Phone: [facility] 05-09-2023 13:17-0400 Systolic blood pressure 152 mm[Hg] DO Shalom Ball Work Phone: [facility] 05-07-2023 13:30-0400 Body height 168.91 cm Ricky Benson Other [employer] Other 05-07-2023 13:30-0400 Body mass index (BMI) [Ratio] 38.49 kg/m2 Ricky Benson Other [employer] Other 05-07-2023 13:30-0400 Body weight 109.82 kg Ricky Benson Other [employer] Other 05-07-2023 13:30-0400 Diastolic blood pressure 78 mm[Hg] Ricky Benson Other [employer] Other 05-07-2023 13:30-0400 Systolic blood pressure 129 mm[Hg] Ricky Benson Other [employer] Other 04-26-2023 13:02-0400 Body weight 110.67 kg DO Shalom Ball Work Phone: [facility] 03-12-2023 13:03-0400 Body temperature 97.8 [degF] DO Shalom Ball Work Phone: [facility] 03-12-2023 13:03-0400 Body weight 112.49 kg DO Shalom Ball Work Phone: [facility] 03-12-2023 13:03-0400 Diastolic blood pressure 53 mm[Hg] DO Shalom Ball Work Phone: [facility] 03-12-2023 13:03-0400 Heart rate 75 /min DO Shalom Ball Work Phone: [facility] 03-12-2023 13:03-0400 Respiratory rate 16 /min DO Shalom Ball Work Phone: [facility] 03-12-2023 13:03-0400 SaO2% (BldA) [Mass fraction] 100 % DO Shalom Ball Work Phone: [facility] 03-12-2023 13:03-0400 Systolic blood pressure 111 mm[Hg] DO Shalom Ball Work Phone: [facility] 01-08-2023 13:33-0400 Body temperature 97.8 [degF] DO Shalom Ball Work Phone: [facility] 01-08-2023 13:33-0400 Body weight 115.21 kg DO Shalom Ball Work Phone: [facility] 01-08-2023 13:33-0400 Diastolic blood pressure 64 mm[Hg] DO Shalom Ball Work Phone: [facility] 01-08-2023 13:33-0400 Heart rate 84 /min DO Shalom Ball Work Phone: [facility] 01-08-2023 13:33-0400 Respiratory rate 16 /min DO Shalom Ball Work Phone: [facility] 01-08-2023 13:33-0400 SaO2% (BldA) [Mass fraction] 98 % DO Shalom Ball Work Phone: [facility] 01-08-2023 13:33-0400 Systolic blood pressure 132 mm[Hg] DO Shalom Ball Work Phone: [facility] 11-19-2022 14:30-0400 Body height 168.91 cm Shalom Ball Other [facility] [email or web address] Other 11-19-2022 14:30-0400 Body mass index (BMI) [Ratio] 39.58 kg/m2 Shalom Ball Other [employer] Other 11-19-2022 14:30-0400 Body weight 112.95 kg Shalom Ball Other [employer] Other 11-19-2022 14:30-0400 Diastolic blood pressure 76 mm[Hg] Shalom Ball Other [employer] Other 11-19-2022 14:30-0400 Respiratory rate 16 /min Shalom Ball Other [employer] Other 11-19-2022 14:30-0400 Systolic blood pressure 122 mm[Hg] Shalom Ball Other [employer] Other 10-24-2022 15:45-0400 Body height 168.91 cm Shalom Ball Other [employer] Other 10-24-2022 15:45-0400 Body mass index (BMI) [Ratio] 39.77 kg/m2 Shalom Ball Other [employer] Other 10-24-2022 15:45-0400 Body weight 113.49 kg Shalom Ball Other [employer] Other 10-24-2022 15:45-0400 Diastolic blood pressure 81 mm[Hg] Shalom Ball Other [employer] Other 10-24-2022 15:45-0400 Respiratory rate 12 /min Shalom Ball Other [employer] Other 10-24-2022 15:45-0400 Systolic blood pressure 137 mm[Hg] Shalom Ball Other [employer] Other 10-10-2022 13:30-0500 Body height 168.91 cm Shalom Ball Other [employer] Other 10-10-2022 13:30-0500 Body mass index (BMI) [Ratio] 40.28 kg/m2 Shalom Ball Other [employer] Other 10-10-2022 13:30-0500 Body weight 114.94 kg Shalom Ball Other [employer] Other 10-10-2022 13:30-0500 Diastolic blood pressure 76 mm[Hg] Shalom Ball Other [facility] [email or web address] Other 10-10-2022 13:30-0500 Respiratory rate 12 /min Shalom Ball Other [facility] [email or web address] Other 10-10-2022 13:30-0500 Systolic blood pressure 122 mm[Hg] Shalom Ball Other [facility] [email or web address] Other 08-09-2022 13:08-0500 Body temperature 97.8 [degF] DO Shalom Ball Work Phone: [facility] 08-09-2022 13:08-0500 Body weight 113.8 kg DO Shalom Ball Work Phone: [facility] 08-09-2022 13:08-0500 Diastolic blood pressure 65 mm[Hg] DO Shalom Ball Work Phone: [facility] 08-09-2022 13:08-0500 Heart rate 101 /min DO Shalom Ball Work Phone: [facility] 08-09-2022 13:08-0500 Respiratory rate 18 /min DO Shalom Ball Work Phone: [facility] 08-09-2022 13:08-0500 SaO2% (BldA) [Mass fraction] 98 % DO Shalom Ball Work Phone: [facility] 08-09-2022 13:08-0500 Systolic blood pressure 107 mm[Hg] DO Shalom Ball Work Phone: [facility] 06-21-2022 16:30-0500 Body height 167.64 cm DO Shalom Ball Work Phone: [facility] Encounters Encounter Date Encounter Type Care Provider Facility Start: 12-08-2024 End: 12-08-2024 ambulatory Shalom Ball DO Work Phone: [facility] Work Phone: Start: 12-08-2024 End: 12-08-2024 Patient encounter procedure Shalom Ball DO Work Phone: [facility] Work Phone: Start: 11-30-2024 End: 11-30-2024 ambulatory Shalom Ball DO Work Phone: [facility] Work Phone: Start: 11-30-2024 End: 11-30-2024 Patient encounter procedure Shalom Ball DO Work Phone: [facility] Work Phone: Start: 11-19-2024 Registered Recurring Shalom Ball DO [facility] Work Phone: Start: 11-19-2024 ambulatory Taina Norbert Facility:[facility] Start: 11-19-2024 End: 11-19-2024 Patient encounter procedure Shalom Ball DO Work Phone: [facility] Work Phone: Start: 10-27-2024 End: 10-27-2024 ambulatory Shalom Ball DO Work Phone: [facility] Work Phone: Start: 10-27-2024 End: 10-27-2024 Patient encounter procedure Shalom Ball DO Work Phone: [facility] Work Phone: Start: 10-20-2024 Non-patient / Non-visit Shalom Ball DO Work Phone: [facility] Work Phone: Start: 09-09-2024 End: 09-09-2024 ambulatory Shalom Ball DO Work Phone: [facility] Work Phone: Start: 09-09-2024 End: 09-09-2024 Patient encounter procedure Shalom Ball DO Work Phone: [facility] Work Phone: Start: 09-07-2024 Registered Recurring Shalom Hayward DO Work Phone: [facility] Work Phone: Start: 08-26-2024 End: 08-26-2024 ambulatory [facility] Work Phone: Start: 08-26-2024 End: 08-26-2024 Patient encounter procedure [facility] Work Phone: Start: 08-11-2024 Non-patient / Non-visit [facility] Work Phone: Start: 07-09-2024 End: 07-09-2024 Patient encounter procedure [facility] Work Phone: Start: 05-19-2024 End: 05-19-2024 ambulatory [facility] Work Phone: Start: 05-19-2024 End: 05-19-2024 Patient encounter procedure [facility] Work Phone: Start: 05-15-2024 Non-patient / Non-visit [facility] Work Phone: Start: 05-01-2024 End: 11-26-2024 Telephone encounter Lana Jhaveri COUNTS INCLUDE 234 BEDS AT [facility] Start: 04-14-2024 End: 04-14-2024 ambulatory DO Shalom Hayward Work Phone: [facility] Work Phone: Start: 04-14-2024 End: 04-14-2024 Patient encounter procedure DO Shalom Ball Work Phone: [facility] Work Phone: Start: 03-09-2024 End: 03-09-2024 ambulatory DO Shalom Ball Work Phone: [facility] Work Phone: Start: 03-09-2024 End: 03-09-2024 Patient encounter procedure DO Shalom Ball Work Phone: [facility] Work Phone: Start: 02-13-2024 End: 02-13-2024 ambulatory DO Shalom Ball Work Phone: [facility] Work Phone: Start: 02-13-2024 End: 02-13-2024 Patient encounter procedure DO Shalom Ball Work Phone: [facility] Work Phone: Start: 02-13-2024 Registered Recurring DO Benjam in Ball Work Phone: [facility] Work Phone: Start: 02-04-2024 End: 02-04-2024 ambulatory DO Shalom Ball Work Phone: [facility] Work Phone: Start: 02-04-2024 End: 02-04-2024 Patient encounter procedure DO Shalom Ball Work Phone: [facility] Work Phone: Start: 01-16-2024 End: 01-16-2024 ambulatory DO Shalom Ball Work Phone: [facility] Work Phone: Start: 01-16-2024 End: 01-16-2024 Patient encounter procedure DO Shalom Ball Work Phone: [facility] Work Phone: Start: 12-26-2023 End: 12-26-2023 ambulatory DO Shalom Ball Work Phone: [facility] Work Phone: Start: 12-26-2023 End: 12-26-2023 Patient encounter procedure DO Shalom Ball Work Phone: [facility] Work Phone: Start: 11-26-2023 Registered Recurring DO Benjam in Ball Work Phone: [facility] Work Phone: Start: 11-12-2023 End: 11-12-2023 ambulatory DO Shalom Ball Work Phone: [facility] Work Phone: Start: 11-12-2023 End: 11-12-2023 Patient encounter procedure DO Shalom Ball Work Phone: [facility] Work Phone: Start: 11-12-2023 Registered Recurring DO Benjam in Ball Work Phone: [facility] Work Phone: Start: 11-07-2023 End: 11-07-2023 ambulatory DO Shalom Ball Work Phone: [facility] Work Phone: Start: 11-07-2023 End: 11-07-2023 Patient encounter procedure DO Shalom Ball Work Phone: [facility] Work Phone: Start: 11-06-2023 Orders Only Hailee noble [employer] [facility] Start: 11-05-2023 End: 11-05-2023 ambulatory DO Shalom Ball Work Phone: [facility] Work Phone: Start: 11-05-2023 End: 11-05-2023 Patient encounter procedure DO Shalom Ball Work Phone: [facility] Work Phone: Start: 11-04-2023 Telephone encounter Indy Artis [facility] Start: 2023 Orders Only Not In System Ref Prov [facility] Start: 10-29-2023 Non-patient / Non-visit DO Shalom Ball Work Phone: [facility] Work Phone: Start: 10-24-2023 Non-patient / Non-visit DO Shalom Ball Work Phone: [facility] Work Phone: Start: 10-23-2023 Orders Only Not In System Ref Prov [facility] Start: 10-22-2023 Non-patient / Non-visit DO Shalom Ball Work Phone: [facility] Work Phone: Start: 10-21-2023 End: 10-21-2023 ambulatory DO Shalom Ball Work Phone: [facility] Work Phone: Start: 10-21-2023 End: 10-21-2023 Departed Referred DO Shalom Ball Work Phone: [facility] Start: 10-21-2023 Non-patient / Non-visit DO Shalom Ball Work Phone: [facility] Work Phone: Start: 10-02-2023 End: 10-02-2023 Patient encounter procedure DO Shalom Ball Work Phone: [facility] Work Phone: Start: 08-27-2023 End: 08-27-2023 ambulatory Shalom Mainor Other [employer] Other Start: 08-27-2023 Nursing evaluation o f patient and report Shalom Ball [facility] Start: 08-14-2023 End: 08-14-2023 ambulatory Shalom Ball Other [employer] Other Start: 08-14-2023 Office outpatient visit 25 minutes Shalom Ball [facility] Start: 08-14-2023 End: 08-14-2023 Patient encounter procedure DO Shalom Ball Work Phone: [facility] Work Phone: Start: 08-13-2023 End: 08-13-2023 ambulatory DO Shalom Ball Work Phone: [facility] Work Phone: Start: 08-13-2023 End: 08-13-2023 Registered Recurring DO Shalom Ball Work Phone: [facility] Work Phone: Start: 08-06-2023 End: 08-06-2023 ambulatory Ricky Benson Other [employer] Other Start: 08-06-2023 Office outpatient visit 15 minutes Ricky Benson [facility] Start: 08-06-2023 End: 08-06-2023 Patient encounter procedure DO Shalom Ball Work Phone: [facility] Work Phone: Start: 07-26-2023 End: 07-26-2023 ambulatory Shalom Ball Other [employer] Other Start: 07-26-2023 Nursing evaluation o f patient and report Shalom Hayward [facility] Start: 06-13-2023 End: 06-13-2023 ambulatory DO Shalom Ball Work Phone: [facility] Work Phone: Start: 06-13-2023 End: 06-13-2023 Registered Recurring DO Shalom Ball Work Phone: [facility] Work Phone: Start: 05-24-2023 End: 05-24-2023 ambulatory Shalom Ball Other [employer] Other Start: 05-24-2023 Nursing evaluation o f patient and report Shalom Hayward [facility] Start: 05-15-2023 Telephone encounter Ricky Mason [facility] Start: 05-15-2023 End: 05-15-2023 Admission to same day surgery center DO Shalom Ball Work Phone: [facility] Work Phone: Start: 05-15-2023 End: 05-15-2023 ambulatory DO Shalom Ball Work Phone: [facility] Work Phone: Start: 05-09-2023 Registered Recurring DO Mirna in Ball Work Phone: [facility] Work Phone: Start: 05-07-2023 End: 05-07-2023 ambulatory Ricky Benson Other [employer] Other Start: 05-07-2023 Office outpatient visit 25 minutes Ricky Benson [facility] Start: 04-24-2023 End: 04-24-2023 ambulatory Shalom Hayward Other [employer] Other Start: 04-24-2023 Nursing evaluation o f patient and report Shalom Hayward [facility] Start: 03-12-2023 End: 03-12-2023 ambulatory DO Shalom Hayward Work Phone: [facility] Work Phone: Start: 03-12-2023 End: 03-12-2023 Registered Recurring DO Shalom Hayward Work Phone: [facility] Work Phone: Start: 02-21-2023 End: 02-21-2023 ambulatory Shalom Ball Other [employer] Other Start: 02-21-2023 Telephone encounter Shalom Hayward [facility] Start: 02-14-2023 End: 02-14-2023 ambulatory Shalom Ball Other [employer] Other Start: 02-14-2023 Nursing evaluation o f patient and report Shalom Mainor [facility] Start: 01-08-2023 End: 01-08-2023 ambulatory DO Shalom Hayward Work Phone: [facility] Work Phone: Start: 01-08-2023 End: 01-08-2023 Registered Recurring DO Shalom Hayward Work Phone: [facility] Work Phone: Start: 12-11-2022 End: 12-11-2022 ambulatory Shalom Hayward Other [employer] Other Start: 12-11-2022 Nursing evaluation o f patient and report Shalom Hayward [facility] Start: 11-19-2022 End: 11-19-2022 ambulatory Shalom Hayward Other [employer] Other Start: 11-19-2022 Office outpatient visit 15 minutes Shalom Hayward [facility] Start: 11-05-2022 End: 11-06-2022 ambulatory [facility] [employer] Other Start: 11-05-2022 Nursing evaluation o f patient and report Shalom Hayward [facility] Start: 11-02-2022 End: 11-02-2022 ambulatory Shalom Hayward Other [employer] Other Start: 11-02-2022 Telephone encounter Shalom Hayward [facility] Start: 10-24-2022 End: 10-24-2022 ambulatory Shalom Hayward Other [employer] Other Start: 10-24-2022 Office outpatient visit 15 minutes Shalom Ball [facility] Start: 10-10-2022 End: 10-10-2022 ambulatory Shalom Hayward Other [employer] Other Start: 10-10-2022 Transitional care manage srvc 14 day discharge Shalom Hayward [facility] Start: 10-02-2022 End: 10-02-2022 ambulatory Shalom Hayward Other [employer] Other Start: 10-02-2022 Nursing evaluation o f patient and report Shalom Hayward [facility] Start: 10-01-2022 End: 10-02-[address] PRASANNA CUMMINS . Facility:[facility] Start: 08-20-2022 End: 08-20-2022 ambulatory Shalom Hayward Other [employer] Other Start: 08-20-2022 Nursing evaluation o f patient and report Shalom Hayward [facility] Start: 08-09-2022 End: 08-09-2022 ambulatory DO Shalom Hayward Work Phone: [facility] Work Phone: Start: 08-09-2022 End: 08-09-2022 Registered Recurring DO Shalom Mainor Work Phone: [facility] Work Phone: Start: 08-06-2022 End: 08-07-[address] TAINA TOUSSAINT Facility:[facility] Start: 06-04-2022 End: 06-05-[address] SHALOM HAYWARD Facility:[facility] Start: 04-03-2022 End: 04-04-[address] SHALOM HAYWARD Facility:[facility] Start: 02-25-2022 Adult health examination Shalom Hayward Other [employer] Other Start: 02-16-2022 End: 02-17-[address] [...] Treatment Date Care Activity Detail Author Start: 04-05-2025 Influenza vaccination Influenza Vaccine [facility] Start: 09-07-2024 [facility] Start: 08-31-2024 [facility] Start: 08-28-2024 End: 08-28-2024 [facility] Start: 08-26-2024 [facility] Start: 06-09-2024 [facility] Start: 06-02-2024 [facility] Start: 06-02-2024 [facility] Start: 04-05-2024 Influenza vaccination Influenza Vaccine [facility] Start: 12-09-2023 End: 12-09-2023 Patient encounter procedure 12/09/2023 2:30 PM EDT Office Visit [facility] [address] [place] [id number] Hailee Preston, [employer] INST[employer] [address] [place] [address] [facility] Start: 11-26-2023 [facility] Start: 11-19-2023 [facility] Start: 07-01-2023 [facility] Start: 06-20-2023 End: 06-21-2023 [facility] Start: 05-15-2023 End: 05-15-2023 [facility] Start: 05-09-2023 [facility] Start: 05-02-2023 [facility] Start: 03-28-2023 [facility] Start: 03-20-2023 End: 03-21-2023 [facility] Start: 01-30-2023 [facility] Start: 01-24-2023 [facility] Start: 01-16-2023 [facility] Start: 11-22-2022 [facility] Start: 11-15-2022 [facility] Start: 08-20-2022 [facility] Start: 08-13-2022 [facility] Start: 06-21-2022 [facility] Start: 06-14-2022 [facility] Start: 05-01-2022 [facility] Start: 04-24-2022 [facility] Start: 01-23-2022 [facility] Start: 01-16-2022 [facility] Start: 12-29-2021 [facility] Start: 12-11-2021 [facility] Start: 01-30-2021 [facility] Start: 09-22-2020 [facility] Start: 07-15-2020 [facility] Start: 2014 Fall Risk Screening Fall Risk Screening [facility] [employer] [facility] Start: 10-31-1999 Administration of varicella zoster vaccine Zoster (Shingles) Vaccine (1 of 2) [facility] Start: 1968 DTaP,Tdap and Td Vaccines (1 - Tdap) DTaP,Tdap and Td Vaccines (1 - Tdap) [facility] Start: 10-31-1967 Adult BMI Screening Adult BMI Screening [facility] [employer] [facility] Start: 1961 Depression Screening Depression Screening [facility] Start: 1961 Tobacco Screening Tobacco Screening [facility] [employer] [facility] Start: 1949 Medicare Annual Wellness Visit Medicare Annual Wellness Visit [facility] [employer] [facility] Basophils [#/volume] in Blood by Automated count [facility] Basophils/100 leukoc ytes in Blood by Automated count [facility] Comprehensive metabo lic 1999 panel - Serum or Plasma [facility] Comprehensive metabo lic 1999 panel - Serum or Plasma [facility] Comprehensive metabo lic 1999 panel - Serum or Plasma [facility] Comprehensive metabo lic 1999 panel - Serum or Plasma [facility] Comprehensive metabo lic 1999 panel - Serum or Plasma [facility] Comprehensive metabo lic 1999 panel - Serum or Plasma [facility] Comprehensive metabo lic 1999 panel - Serum or Plasma [facility] Comprehensive metabo lic 1999 panel - Serum or Plasma [facility] Comprehensive metabo lic 1999 panel - Serum or Plasma [facility] Comprehensive metabo lic 1999 panel - Serum or Plasma [facility] Comprehensive metabo lic 1999 panel - Serum or Plasma [facility] Comprehensive metabo lic 1999 panel - Serum or Plasma [facility] Eosinophils [#/volum e] in Blood [facility] Eosinophils/100 leuk ocytes in Blood by Automated count [facility] Erythrocyte distribu tion width [Ratio] by Automated count [facility] Erythrocytes [#/volu me] in Blood [facility] Ferritin [Mass/volum e] in Serum or Plasma [facility] Ferritin [Mass/volum e] in Serum or Plasma [facility] Ferritin [Mass/volum e] in Serum or Plasma [facility] Ferritin [Mass/volum e] in Serum or Plasma [facility] Ferritin [Mass/volum e] in Serum or Plasma [facility] Ferritin [Mass/volum e] in Serum or Plasma [facility] Ferritin [Mass/volum e] in Serum or Plasma [facility] Ferritin [Mass/volum e] in Serum or Plasma [facility] Ferritin [Mass/volum e] in Serum or Plasma [facility] Ferritin [Mass/volum e] in Serum or Plasma [facility] Hematocrit [Volume Fraction] of Blood [facility] Hemoglobin [Mass/vol ume] in Blood [facility] Leukocytes [#/volume ] corrected for nucleated erythrocytes in Blood by Automated coun [facility] Leukocytes [#/volume ] in Blood [facility] Lymphocytes [#/volum e] in Blood by Automated count [facility] Lymphocytes/100 leuk ocytes in Blood by Automated count [facility] MCH [Entitic mass] b y Automated count [facility] MCHC [Mass/volume] b y Automated count [facility] MCV [Entitic volume] by Automated count [facility] Monocytes [#/volume] in Blood by Automated count [facility] Monocytes/100 leukoc ytes in Blood by Automated count [facility] Neutrophils [#/volum e] in Blood by Automated count [facility] Neutrophils/100 leuk ocytes in Blood by Automated count [facility] Nucleated erythrocyt es [Presence] in Blood by Automated count [facility] Patient Education Gastric Ulcer (DC) Hiatal Hernia (DC) [facility] Work Phone: Platelet mean volume [Entitic volume] in Blood by Automated count [facility] Platelets [#/volume] in Blood [facility] [place] Immunizations Immunization Date Immunization Notes Care Provider Rosy mei 04-14-2024 influenza, high dose seasonal, preservative-free [facility] 05-31-2023 influenza, high dose seasonal, preservative-free Shalom Hayward Other [employer] [facility] [email or web address] Other 05-31-2023 influenza virus vaccine, unspecified formulation DO Shalom Hayward Work Phone: [facility] 04-23-2022 influenza, high dose seasonal, preservative-free Shalom Hayward Other [employer] [facility] [email or web address] Other 04-23-2022 influenza virus vaccine, unspecified formulation DO Shalom Mainor Work Phone: [facility] 04-21-2021 influenza virus vaccine, split virus (incl. purified surface antigen) Shalom Hayward Other [facility] [email or web address] Other 04-21-2021 influenza virus vaccine, unspecified formulation DO Shalom Hayward Work Phone: [facility] 10-26-2020 COVID-19 mRNA-1273 (Moderna) DO Shalom Hayward Work Phone: [facility] 09-29-2020 COVID-19 mRNA-1273 (Moderna) DO Shalom Hayward Work Phone: [facility] 05-10-2020 influenza virus vaccine, split virus (incl. purified surface antigen) Shalom Hayward Other [facility] [email or web address] Other 05-10-2020 influenza virus vaccine, unspecified formulation DO [employer] Work Phone: [facility] 05-28-2019 influenza virus vaccine, split virus (incl. purified surface antigen) Shalom Hayward Other [facility] [email or web address] Other 05-28-2019 influenza virus vaccine, unspecified formulation DO [employer] Work Phone: [facility] 06-02-2018 influenza virus vaccine, split virus (incl. purified surface antigen) Shalom Hayward Other [facility] [email or web address] Other 06-02-2018 influenza virus vaccine, unspecified formulation DO Shalom Hayward Work Phone: [facility] 06-06-2017 influenza virus vaccine, split virus (incl. purified surface antigen) Shalom Hayward Other [facility] [email or web address] Other 06-06-2017 influenza virus vaccine, unspecified formulation DO Shalom Hayward Work Phone: [facility] 06-19-2016 influenza virus vaccine, split virus (incl. purified surface antigen) Shalom Hayward Other [facility] [email or web address] Other 06-19-2016 influenza virus vaccine, unspecified formulation DO Shalom Hayward Work Phone: [facility] 06-07-2016 pneumococcal conjuga te vaccine, 13 valent Shalom Hayward Other [facility] 05-05-2015 influenza virus vaccine, split virus (incl. purified surface antigen) Shalom Hayward Other [facility] [email or web address] Other 05-05-2015 influenza virus vaccine, unspecified formulation DO Shalom Hayward Work Phone: [facility] 04-27-2015 diphtheria, tetanus toxoids and acellular pertussis vaccine, unspecified formulation Shalom Hayward Other [facility] 02-02-2015 pneumococcal polysaccharide vaccine, 23 valent Shalom Hayward Other [facility] 04-16-2012 tetanus and diphther ia toxoids, adsorbed, preservative free, for adult use (5 Lf of tetanus toxoid and 2 Lf of diphtheria toxoid) Shalom Hayward Other [facility] 04-10-2000 diphtheria, tetanus toxoids and acellular pertussis vaccine, unspecified formulation Shalom Hayward Other [facility] Payers Date Payer Category Payer Self-pay [id number] 2014 Medicare [id number] 1959 Medicare [id number] 1959 Unknown [id number] 1950 Unknown [id number] 2.16. [id number] 1950 Unknown [id number] .16.84 [id number] 1949 Unknown [id number] 2.16.84 [id number] 1949 Unknown [id number] 2.16.84 [id number] 1949 Unknown [id number] 2.16.84 [id number] 1949 Unknown [id number] 2.16.84 [id number] 1949 Unknown [id number] 2.16.84 [id number] 1949 Unknown [id number] 2.16.84 0.1.590120.3.579.2.593 1949 Unknown [id number] 2.16.84 0.1.400087.3.579.2.593 1949 Unknown [id number] 2.16.84 0.1.309066.3.579.2.593 1949 Unknown [id number] 2.16.84 [id number] 1949 Unknown [id number] 2.16.84 [id number] Unknown [id number] 2.16.8 [id number] Social History Date Type Detail Facility Start: 08-09-2022 End: 03-12-2023 Tobacco smoking status ALIS Ex-smoker (finding) [facility] Start: 1950 Sex Assigned At Female F [facility] Start: 01-14-2019 Sex Assigned At N [facility] Other Start: 05-15-2023 End: 04-14-2024 Tobacco smoking status ALIS Never smoked tobacco (finding) [facility] Start: 08-26-2024 End: 12-08-2024 Sex Female (finding) [facility] Tobacco smoking status [facility] Tobacco smoking consumption unknown [facility] Start: 01-14-2019 History of Social function [facility] Childcare Unknown [facility] Start: 1950 Sex Assigned At Not on file [facility] [employer] [facility] Medical Equipment Procedure Code Equipment Code Equipment Origin al Text Equipment Identifier Dates Capsule endoscopy, for patency of lumen evaluation Video capsule endoscopy system [id number] FDA Start: 01-07-2020 Capsule endoscopy, for patency of lumen evaluation Video capsule endoscopy system ()[id number] FDA Start: 06-22-2021 Goals Date Patient Goal Desired Activity /State Clinical Notes 01-01-2020 to 09-09-2024 Note Date & Type Note Facility 09-09-2024 Evaluation note Diagnosis Onset Date Resolution Diarrhea acute September 09, 2024 1:24pm YARI (generalized anxiety disorder) acute September 09 1:24pm GERD (gastroesophageal reflux disease) acute September 09 1:24pm Iron deficiency anemia due to chronic blood loss acute September 09 1:24pm Obesity acute September 09, 2024 1:24pm Pernicious anemia acute 2024 1:24pm Primary hypertension acute 2024 1:24pm Chronic Freedom ulcer acute Nov 2:17pm Hiatal hernia acute November 19, 2024 2:17pm Iron deficiency anemia due to chronic blood loss acute November 19, 2024 2:17pm Angiodysplasia of small intestine chronic November 19, 2024 2:17pm Angiodysplasia of small intestine chronic November 19, 2024 2:18pm Hiatal hernia chronic November 19, 2024 2:18pm B12 deficiency deleted November 2:18pm Chronic Freedom ulcer deleted Apr 2024 2:18pm Iron deficiency anemia deleted Ap 2024 2:18pm Obesity, morbid, BMI 40.0-49.9 deleted November 19, 2024 2:18pm Skin lesion deleted November 19, 2 025 2:18pm [facility] Work Phone: 1(746) 185-234601-22-2025 Evaluation note* Diagnosis Onset Date Resolution Status Admit Date Chronic Freedom ulcer acute Aug 10:51am Hiatal hernia acute August 10:51am Iron deficiency anemia due t o chronic blood loss acute August 26, 2024 10:51am Angiodysplasia of small intestine chronic August 26 10:51am B12 deficiency deleted August 262024 10:51am Angiodysplasia of small intestine chronic September 07 12:48pm Hiatal hernia chronic September 12:48pm B12 deficiency deleted September 072024 12:48pm Chronic Freedom ulcer deleted Feb ru2024 12:48pm Iron deficiency anemia deleted Fe bruary 2024 12:48pm Obesity, morbid, BMI 40.0-49.9 delet ed September 07, 2024 12:48pm Skin lesion deleted September 07, 2024 12:48pm Diarrhea acute September 09, 2024 1:24pm YARI (generalized anxiety disorder) acute September 09 1:24pm GERD (gastroesophageal reflu x disease) acute September 09 1:24pm Iron deficiency anemia due t o chronic blood loss acute September 09, 2024 1:24pm Obesity acute September 09, 2024 1:24pm Pernicious anemia acute ua2024 1:24pm Primary hypertension acute 2024 1:24pm [facility] Work Phone: 1([phone]) 810-217012-05-2024 Evaluation note* Diagnosis Onset Date Resolution Status Admit Date Pernicious anemia acute Decemb r 2023 3:17pm Angiodysplasia of small intestine chronic August 26 10:51am Hiatal hernia chronic August 10:51am Obesity, morbid, BMI 40.0-49.9 chron ic August 26, 2024 10:51am B12 deficiency deleted August 262024 10:51am Chronic Freedom ulcer deleted Aug 10:51am Iron deficiency anemia deleted [facility] 2024 10:51am Skin lesion deleted August 26, 2024 10:51am Chronic Freedom ulcer acute Aug 10:51am Hiatal hernia acute August 10:51am Iron deficiency anemia due t o chronic blood loss acute August 26, 2024 10:51am Angiodysplasia of small intestine chronic August 26 10:51am B12 deficiency deleted August 262024 10:51am [facility] Work Phone: 1(594) 943-421512-05-2024 Evaluation note* Diagnosis Onset Date Resolution Status Admit Date Pernicious anemia acute Decembe r 2023 3:17pm Chronic Freedom ulcer acute Aug 10:51am Hiatal hernia acute August 10:51am Iron deficiency anemia due t o chronic blood loss acute August 26, 2024 10:51am Angiodysplasia of small intestine chronic August 26 10:51am B12 deficiency deleted August 262024 10:51am Angiodysplasia of small intestine chronic September 07 12:48pm Hiatal hernia chronic September 12:48pm B12 deficiency deleted September 072024 12:48pm Chronic Freedom ulcer deleted Sep 12:48pm Iron deficiency anemia deleted 2024 12:48pm Obesity, morbid, BMI 40.0-49.9 delet ed September 07, 2024 12:48pm Skin lesion deleted September 07, 2024 12:48pm YARI (generalized anxiety disorder) acute September 09 1:24pm GERD (gastroesophageal reflu x disease) acute September 09 1:24pm Iron deficiency anemia due t o chronic blood loss acute September 09, 2024 1:24pm Obesity acute September 09, 2024 1:24pm Pernicious anemia acute uar 2024 1:24pm Primary hypertension acute 2024 1:24pm [facility] Work Phone: 1(252) 685-543009-27-2024 Miscellaneous Notes* Telephone Encounter - ANI Damon - 05/01/2024 9:15 AM EDT I called Janine and left a message to call the office. It was recommended that she do a repeat EGD. I don't see it was done yet and I left several messages to schedule. I left my phone number & extension on her voicemail. [facility] Telephone encounter Note* Telephone Encounter - Lana ANI Jhaveri - 05/01/2024 9:15 AM EDT I called Janine and left a message to call the office. It was recommended that she do a repeat EGD. I don't see it was done yet and I left several messages to schedule. I left my phone number & extension on her voicemail. [facility]04-01-2024 Miscellaneous Notes* Telephone Encounter - Indy Artis CMA - 11/04/2023 2:11 PM EDT ----- Message from Parish Mckeon DO sent at 2023 3:39 PM EDT ----- Please let pt. Know that she has esophageal erosions. I will send rx to pharmacy and she needs repeat scope in 6- 8 weeks. Please schedule.She needs to be on Omeprazole 40 mg bid but I couldn't e scribe. Can you help? ThanksDr. Del Rosario * Telephone Encounter - Indy Artis CMA - 11/04/2023 2:11 PM EDT Spoke with patient regarding pathology results. Patient verbally understood with no further questions. A follow up appointment was scheduled on 12/09/23 to schedule a repeat EGD with Dr. Mckeon. [facility] Telephone encounter Note* Telephone Encounter - Indy Artis CMA - 11/04/2023 2:11 PM EDT ----- Message from Parish Mckeon DO sent at 2023 3:39 PM EDT ----- Please let pt. Know that she has esophageal erosions. I will send rx to pharmacy and she needs repeat scope in 6- 8 weeks. Please schedule.She needs to be on Omeprazole 40 mg bid but I couldn't e scribe. Can you help? Thanks, Dr. Del Rosario [facility]04-01-2024 Telephone encounter Note* Telephone Encounter - Indy Artis CMA - 11/04/2023 2:11 PM EDT Spoke with patient regarding pathology results. Patient verbally understood with no further questions. A follow up appointment was scheduled on 12/09/23 to schedule a repeat EGD with Dr. Mckeon. [facility]01-23-2024 Evaluation note* Encounter Date Diagnosis Assessment Notes Treatment Notes Treatment Clinical Notes Aug, Pernicious anemia (ICD-10 - D51.0) [employer] Other 01-10-2024 Evaluation note* Encounter Date Diagnosis [...] of medications Aug, Macromastia (ICD-10 - N62) [employer] Other 01-02-2024 Evaluation note* Encounter Date Diagnosis [...] results. Aug, Abdominal pain (ICD-10 - R10.9) [employer] Other 11-09-2023 Progress note Author Taina Toussaint [facility] June 13, 2023 3:08pm Note Date/Time June 13, 2023 1 :12pm [facility] [place] [address] Hem/Onc Follow Up Note - OP Signed Patient: Janine Conde MR#: [id number] : 1950 Acct:[id number] Age/Sex: 72 / F Type: REG RCR [...] Injectafer in November/January/March 2023. Followup labs at [facility] show hemoglobin 8.4 with iron saturation [...] symptoms. She notes she was admitted at [facility] end of September for anemia and received [...] 1 on 11/30/2021. Most recent laboratories from [facility] dated 08/06/2022 reveal hemoglobin - 10.7; [...] withactivities and her most recent labs at [facility] 06/04/2022 showed hemoglobin 11.7 with serum [...] that time. On review, her labs from [facility] reveal hgb 9.0 and iron saturation 5%. We will plan for repeat Feraheme x 2 doses and will follow-up in 6 weeks again for repeat labs 11/24/2021: She is here for follow-up today and transfer of followup (previouslyfollowed by Dr. Anam Abarca). She reports improved energy since most recent RBC transfusion and iron infusions at [place] but persistent fatigue. She still has episodes [...] No iron panel was reported. Labs from [place] 11/22/2021 with improved hemoglobin to 9.4 but still low iron saturation 3.9% and ferritin 20. 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 Followup with [facility] in 6 weeks to review iron studies after Feraheme 510mg x 2 doses and Octreotide LAR 20mg IM monthly. 10/24/2021 (YAZAN Chan) her energy is much improved after receiving Feraheme in September at [facility] she has her labs done at [facility] as well, none done this month for [...] CMP 01/19/21 09:05 01/01/20 11:27 Outside Labs: [facility] outside labs 04/24/2023: Hemoglobin 8.4 iron [...] have her follow-up in 6 weeks with [facility] and will plan for repeatiron studies and [...] admitted for 2-3 days with anemia at [facility] and received transfusional support. Current labs reveal [...] for coordination of care (as documented) and [id number] counseling of patient and/or family. Dictated By: Taina Toussaint MD DD/ [id number] Signed By: <Electronically signed by MD Taina Toussaint> 06/13/23 [address] [facility] Work Phone: 1([phone]) 639-401610-20-2023 Evaluation note* Encounter Date Diagnosis Assessment Notes Treatment Notes Treatment Clinical Notes May, Pernicious anemia (ICD-10 - D51.0) [employer] Other 10-11-2023 Procedure [facility]10-11-2023 Evaluation note* Encounter Date Diagnosis Assessment Notes Treatment Notes Treatment Clinical Notes May, Hiatal hernia (ICD-10 - K44.9) May, Chronic Freedom ulcer (ICD-10 - K25.7) [employer] [facility] [email or web address] Other 10-03-2023 Evaluation note* Encounter Date Diagnosis Assessment Notes Treatment Notes Treatment Clinical Notes May, Iron deficiency anemia (ICD-10 - D50.9) Pt to repeat EGD- push enteroscopy Pt to start clonadine low dose 0.1mg- half a pill bid Retrieve lab results from Dr. Toussaint [employer] Other 09-23-2023 Progress note Author Taina Toussaint [facility] April 27, 2023 7:53pm Note Date/Time April 26, 2023 1:10pm [facility] [address] [address] Hem/Onc Follow Up Note - OP Signed Patient: Janine Conde MR#: [id number] : 1950 Acct:[id number] Age/Sex: 72 / F Type: REG RCR [...] Injectafer in November/January/March 2023. Followup labs at [facility] show hemoglobin 8.4 with iron saturation [...] symptoms. She notes she was admitted at [facility] end of September for anemia and received [...] 1 on 11/30/2021. Most recent laboratories from [facility] dated 08/06/2022 reveal hemoglobin - 10.7; [...] withactivities and her most recent labs at [facility] 06/04/2022 showed hemoglobin 11.7 with serum [...] that time. On review, her labs from [facility] reveal hgb 9.0 and iron saturation 5%. We will plan for repeat Feraheme x 2 doses and will follow-up in 6 weeks again for repeat labs 11/24/2021: She is here for follow-up today and transfer of followup (previouslyfollowed by Dr. Anam Abarca). She reports improved energy since most recent RBC transfusion and iron infusions at [facility] but persistent fatigue. She still has episodes [...] No iron panel was reported. Labs from [facility] 11/22/2021 with improved hemoglobin to 9.4 but still low iron saturation 3.9% and ferritin 20. 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 Followup with [facility] in 6 weeks to review iron studies after Feraheme 510mg x 2 doses and Octreotide LAR 20mg IM monthly. 10/24/2021 (YAZAN Chan) her energy is much improved after receiving Feraheme in September at [facility] she has her labs done at [facility] as well, none done this month for [...] doses 08/09/2022 Injectafer 750mg IV x 2: /March/April 2023 ROS Details: All systems reviewed & [...] Depressed Mood [-], Anxiety [-], Stressed [-] [facility] - History Attestation statement: The following information [...] 09:05 01/01/20 11:27 Outside Labs: Labs at [facility]: 04/24/2023: WBC 5800, Hg 8.4, Hct [...] have her follow-up in 6 weeks with [facility] and will plan for repeatiron studies and [...] admitted for 2-3 days with anemia at [facility] and received transfusional support. Current labs reveal [...] for coordination of care (as documented) and [id number]-yr-[id number] counseling of patient and/or family. Dictated By: Taina Toussaint MD DD/ [id number] Signed By: <Electronically signed by MD Taina Toussaint> 04/27/231952 [facility] Work Phone: 1(862) 511-887209-20-2023 Evaluation note* Encounter Date Diagnosis Assessment Notes Treatment Notes Treatment Clinical Notes Apr, Pernicious anemia (ICD-10 - D51.0) [employer] Other 08-08-2023 Progress note Author Shiela Chan [facility] March 12, 2023 3:30pm Note Date/Time March 12, 2023 1:3 3pm [facility] [place] [address] Hem/Onc Follow Up Note - OP Signed Patient: Janine Conde MR#: [id number] : 1950 Acct:[id number] Age/Sex: 72 / F Type: REG RCR [...] of the small bowel 04/28/2021 follow-up in [place]: o FeraHeme 510 mg IV o Repeat Iron Studies, CBC, Ferritin in 1 month o Follow-up in [address] Rivera at [facility] September 2021 follow-up labs at [facility] with again low iron saturation at 3.5%, ferritin 15 and hemoglobin 6.6. She received 2 doses of Feraheme as well as 2 unitsPRBCs at [facility] 10/24/2021: She feels much better after receiving [...] have her follow-up in 6 weeks with [facility] and will plan for repeat iron studies [...] 1 on 11/30/2021. Most recent laboratories from [facility] dated 08/06/2022 reveal hemoglobin - 10.7; [...] admitted for 2-3 days with anemia at [facility] and received transfusional support. Current labs reveal [...] symptoms. She notes she was admitted at [facility] end of September for anemia and received [...] 1 on 11/30/2021. Most recent laboratories from [facility] dated 08/06/2022 reveal hemoglobin - 10.7; [...] withactivities and her most recent labs at [facility] 06/04/2022 showed hemoglobin 11.7 with serum [...] that time. On review, her labs from [facility] reveal hgb 9.0 and iron saturation 5%. We will plan for repeat Feraheme x 2 doses and will follow-up in 6 weeks again for repeat labs 11/24/2021: She is here for follow-up today and transfer of followup (previouslyfollowed by Dr. Anam Abarca). She reports improved energy since most recent RBC transfusion and iron infusions at [facility] but persistent fatigue. She still has episodes [...] No iron panel was reported. Labs from [facility] 11/22/2021 with improved hemoglobin to 9.4 but still low iron saturation 3.9% and ferritin 20. 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 Followup with [facility] in 6 weeks to review iron studies [...] improved after receiving Feraheme in September at [facility] she has her labs done at [facility] as well, none done this month for [...] symptoms. She notes she was admitted at [facility] end of September for anemia and received [...] for coordination of care (as documented) and ufpf-mt-paic counseling of patient and/or family. [facility] - Medical History Medical History: Medical History [...] By: <Electronically signed by SONIA Chan> 03/12/23 4[address] [facility] Work Phone: 1([phone]) 425-618307-13-2023 Evaluation note* Encounter Date Diagnosis Assessment Notes Treatment Notes Treatment Clinical Notes Feb, Pernicious anemia (ICD-10 - D51.0) [employer] Other 06-06-2023 Progress note Author Shiela Chan [facility] January 08, 2023 2:18pm Note Date/Time January 08, 2023 2:14p m [facility] [place] [address] Hem/Onc Follow Up Note - OP Signed Patient: Janine Conde MR#: [id number] : 1950 Acct:[id number] Age/Sex: 72 / F Type: REG RCR [...] of the small bowel 04/28/2021 follow-up in [place]: o FeraHeme 510 mg IV o Repeat Iron Studies, CBC, Ferritin in 1 month o Follow-up in [address] Rivera at [facility] September 2021 follow-up labs at [facility] with again low iron saturation at 3.5%, ferritin 15 and hemoglobin 6.6. She received 2 doses of Feraheme as well as 2 units PRBCs at [facility] 10/24/2021: She feels much better after receiving [...] have her follow-up in 6 weeks with [facility] and will plan for repeat iron studies [...] 1 on 11/30/2021. Most recent laboratories from [facility] dated 08/06/2022 reveal hemoglobin - 10.7; [...] admitted for 2-3 days with anemia at [facility] and received transfusional support. Current labs reveal [...] symptoms. She notes she was admitted at [facility] end of September for anemia and received [...] 1 on 11/30/2021. Most recent laboratories from [facility] dated 08/06/2022 reveal hemoglobin - 10.7; [...] withactivities and her most recent labs at [facility] 06/04/2022 showed hemoglobin 11.7 with serum [...] that time. On review, her labs from [facility] reveal hgb 9.0 and iron saturation 5%. We will plan for repeat Feraheme x 2 doses and will follow-up in 6 weeks again for repeat labs 11/24/2021: She is here for follow-up today and transfer of followup (previouslyfollowed by Dr. Anam Abarca). She reports improved energy since most recent RBC transfusion and iron infusions at [place] but persistent fatigue. She still has episodes [...] No iron panel was reported. Labs from [place] 11/22/2021 with improved hemoglobin to 9.4 but still low iron saturation 3.9% and ferritin 20. 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 Followup with [facility] in 6 weeks to review iron studies [...] improved after receiving Feraheme in September at [facility] she has her labs done at [facility] as well, none done this month for [...] symptoms. She notes she was admitted at [facility] end of September for anemia and received [...] for coordination of care (as documented) and qcdm-oq-yxvs counseling of patient and/or family. [facility] - Medical History Medical History: Medical History [...] 1413 Signed By: <Electronically signed by SONIA Chan> 01/08/23 1418 [facility] Work Phone: 1([phone]) [phone] Evaluation note* Encounter Date Diagnosis Assessment Notes Treatment Notes Treatment Clinical Notes December, Pernicious anemia (ICD-10 - D51.0) [employer] Other 04-17-2023 Evaluation note* Encounter Date Diagnosis [...] anxiety disorder (ICD-10 - F10.280) Continue abstinence [employer] Other 04-12-2023 Progress note Author Shiela Chan [facility] November 14, 2022 2:04pm Note Date/Time November 07, 2022 11:4 5am [facility] [address] [address] Hem/Onc Follow Up Note - OP Signed Patient: Janine Conde MR#: [id number] : 1950 Acct:[id number] Age/Sex: 72 / F Type: REG RCR [...] symptoms. She notes she was admitted at [facility] end of September for anemia and received [...] 1 on 11/30/2021. Most recent laboratories from [facility] dated 08/06/2022 reveal hemoglobin - 10.7; [...] withactivities and her most recent labs at [facility] 06/04/2022 showed hemoglobin 11.7 with serum [...] that time. On review, her labs from [facility] reveal hgb 9.0 and iron saturation 5%. We will plan for repeat Feraheme x 2 doses and will follow-up in 6 weeks again for repeat labs 11/24/2021: She is here for follow-up today and transfer of followup (previouslyfollowed by Dr. Anam Abarca). She reports improved energy since most recent RBC transfusion and iron infusions at [place] but persistent fatigue. She still has episodes [...] No iron panel was reported. Labs from [place] 11/22/2021 with improved hemoglobin to 9.4 but still low iron saturation 3.9% and ferritin 20. 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 Followup with [facility] in 6 weeks to review iron studies [...] improved after receiving Feraheme in September at [facility] she has her labs done at [facility] as well, none done this month for [...] of the small bowel 04/28/2021 follow-up in [place]: o FeraHeme 510 mg IV o Repeat Iron Studies, CBC, Ferritin in 1 month o Follow-up in [address] Rivera at [facility] September 2021 follow-up labs at [facility] with again low iron saturation at 3.5%, ferritin 15 and hemoglobin 6.6. She received 2 doses of Feraheme as well as 2 units PRBCs at [facility] 10/24/2021: She feels much better after receiving [...] have her follow-up in 6 weeks with [facility] and will plan for repeat iron studies [...] 1 on 11/30/2021. Most recent laboratories from [facility] dated 08/06/2022 reveal hemoglobin - 10.7; [...] admitted for 2-3 days with anemia at [facility] and received transfusional support. Current labs reveal [...] for coordination of care (as documented) and ljwj-pb-otfh counseling of patient and/or family. Dictated By: Shiela Chan APRN DD/ 1144 Signed By: <Electronically signed by SONIA Chan> 11/14/22 140[address] [facility] Work Phone: 1([phone]) 908-283804-03-2023 Evaluation note* Encounter Date Diagnosis Assessment Notes Treatment Notes Treatment Clinical Notes Nov, Pernicious anemia (ICD-10 - D51.0) [employer] Other 03-22-2023 Evaluation note* Encounter Date Diagnosis [...] d exercise and weight loss A1C yearly [employer] Other 03-08-2023 Evaluation note* Encounter Date Diagnosis [...] risk of cirrhosis, gastritis, bleeding tendancies etc [employer] Other 02-28-2023 Evaluation note* Encounter Date Diagnosis Assessment Notes Treatment Notes Treatment Clinical Notes Sep, Pernicious anemia (ICD-10 - D51.0) [employer] Other 01-05-2023 Progress note Author Gertrudis Louis [facility] August 09, 2022 2:19pm Note Date/Time August 09, 2022 2: 03pm [facility] [address] [address] Hem/Onc Follow Up Note - OP Signed Patient: Janine Conde MR#: [id number] : 1950 Acct:[id number] Age/Sex: 71 / F Type: REG RCR [...] 1 on 11/30/2021. Most recent laboratories from [facility] dated 08/06/2022 reveal hemoglobin - 10.7; [...] withactivities and her most recent labs at [facility] 06/04/2022 showed hemoglobin 11.7 with serum [...] that time. On review, her labs from [facility] reveal hgb 9.0 and iron saturation 5%. We will plan for repeat Feraheme x 2 doses and will follow-up in 6 weeks again for repeat labs 11/24/2021: She is here for follow-up today and transfer of followup (previouslyfollowed by Dr. Anam Abarca). She reports improved energy since most recent RBC transfusion and iron infusions at [place] but persistent fatigue. She still has episodes [...] No iron panel was reported. Labs from [place] 11/22/2021 with improved hemoglobin to 9.4 but still low iron saturation 3.9% and ferritin 20. 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 Followup with [facility] in 6 weeks to review iron studies [...] improved after receiving Feraheme in September at [facility] she has her labs done at [facility] as well, none done this month for [...] Depressed Mood [-], Anxiety [-], Stressed [-] [facility] - Medical History Medical History: Medical History [...] of the small bowel 04/28/2021 follow-up in [place]: o FeraHeme 510 mg IV o Repeat Iron Studies, CBC, Ferritin in 1 month o Follow-up in [address] Rivera at [facility] September 2021 follow-up labs at [facility] with again low iron saturation at 3.5%, ferritin 15 and hemoglobin 6.6. She received 2 doses of Feraheme as well as 2 units PRBCs at [facility] 10/24/2021: She feels much better after receiving [...] have her follow-up in 6 weeks with [facility] and will plan for repeat iron studies [...] 1 on 11/30/2021. Most recent laboratories from [facility] dated 08/06/2022 reveal hemoglobin - 10.7; [...] for coordination of care (as documented) and cexb-jp-kajr counseling of patient and/or family. Dictated By: Gertrudis Louis APRN DD/ 1350 Signed By: <Electronically signed by SONIA Louis> 08/09/22 1415 [facility] Work Phone: 1([phone]) 344-946111-02-2022 Progress note Author Taina Toussaint [facility] June 06, 2022 10:30am Note Date/Time June 06, 2022 1 0:03am [facility] [address] [address] Hem/Onc Follow Up Note - OP Signed Patient: Janine Conde MR#: [id number] : 1950 Acct:[id number] Age/Sex: 71 / F Type: REG RCR [...] activities and her most recent labs at [facility] 06/04/2022 showed hemoglobin 11.7 with serum [...] that time. On review, her labs from [facility] reveal hgb 9.0 and iron saturation 5%. We will plan for repeat Feraheme x 2 doses and will follow-up in 6 weeks again for repeat labs 11/24/2021: She is here for follow-up today and transfer of followup (previouslyfollowed by Dr. Anam Abarca). She reports improved energy since most recent RBC transfusion and iron infusions at [place] but persistent fatigue. She still has episodes [...] No iron panel was reported. Labs from [place] 11/22/2021 with improved hemoglobin to 9.4 but still low iron saturation 3.9% and ferritin 20. 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 Followup with [facility] in 6 weeks to review iron studies [...] improved after receiving Feraheme in September at [facility] she has her labs done at [facility] as well, none done this month for [...] 01/01/20 11:27 Outside Labs: 06/04/2022 labs at [facility]: White blood cells 5800, hemoglobin 11.7, [...] of the small bowel 04/28/2021 follow-up in [place]: o FeraHeme 510 mg IV o Repeat Iron Studies, CBC, Ferritin in 1 month o Follow-up in [address] Rivera at [facility] September 2021 follow-up labs at [facility] with again low iron saturation at 3.5%, ferritin 15 and hemoglobin 6.6. She received 2 doses of Feraheme as well as 2 units PRBCs at [facility] 10/24/2021: She feels much better after receiving [...] have her follow-up in 6 weeks with [facility] and will plan for repeat iron studies [...] for coordination of care (as documented) and kudp-ci-mrgx counseling of patient and/or family. Dictated By: Taina Toussaint MD DD/ 1002 Signed By: <Electronically signed by MD Taina Toussaint> 06/06/22 1030 [facility] Work Phone: 1([phone]) [phone] Progress note Author Gertrudis Louis [facility] February 15, 2022 2:17pm Note Date/Time February 15, 2022 2:10 pm [facility] [place] [address] Hem/Onc Follow Up Note - OP Signed Patient: Janine Conde MR#: [id number] : 1950 Acct:[id number] Age/Sex: 71 / F Type: REG RCR [...] that time. On review, her labs from [facility] reveal hgb 9.0 and iron saturation 5%. We will plan for repeat Feraheme x 2 doses and will follow-up in 6 weeks again for repeat labs 11/24/2021: She is here for follow-up today and transfer of followup (previouslyfollowed by Dr. Anam Abarca). She reports improved energy since most recent RBC transfusion and iron infusions at [place] but persistent fatigue. She still has episodes [...] No iron panel was reported. Labs from [place] 11/22/2021 with improved hemoglobin to 9.4 but still low iron saturation 3.9% and ferritin 20. 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 Followup with [facility] in 6 weeks to review iron studies [...] improved after receiving Feraheme in September at [facility] she has her labs done at [facility] as well, none done this month for [...] Depressed Mood [-], Anxiety [-], Stressed [-] [facility] - Medical History Medical History: Medical History [...] of the small bowel 04/28/2021 follow-up in [place]: o FeraHeme 510 mg IV o Repeat Iron Studies, CBC, Ferritin in 1 month o Follow-up in [address] Rivera at [facility] September 2021 follow-up labs at [facility] with again low iron saturation at 3.5%, ferritin 15 and hemoglobin 6.6. She received 2 doses of Feraheme as well as 2 units PRBCs at [facility] 10/24/2021: She feels much better after receiving [...] have her follow-up in 6 weeks with [facility] and will plan for repeat iron studies [...] for coordination of care (as documented) and tzam-ra-juev counseling of patient and/or family. Dictated By: Gertrudis Louis APRN DD/ 1409 Signed By: <Electronically signed by SONIA Louis> 02/15/22 1417 [facility] Work Phone: 1([phone]) [phone] Progress note Author Shiela Chan [facility] January 05, 2022 12:28pm Note Date/Time January 05, 2022 11:52 am [facility] [place] [address] Hem/Onc Follow Up Note - OP Signed Patient: Janine Conde MR#: [id number] : 1950 Acct:[id number] Age/Sex: 71 / F Type: REG RCR [...] that time. On review, her labs from [facility] reveal hgb 9.0 and iron saturation 5%. We will plan for repeat Feraheme x 2 doses and will follow-up in 6 weeks again for repeat labs 11/24/2021: She is here for follow-up today and transfer of followup (previouslyfollowed by Dr. Anam Abarca). She reports improved energy since most recent RBC transfusion and iron infusions at [place] but persistent fatigue. She still has episodes [...] No iron panel was reported. Labs from [place] 11/22/2021 with improved hemoglobin to 9.4 but still low iron saturation 3.9% and ferritin 20. 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 Followup with [facility] in 6 weeks to review iron studies after Feraheme 510mg x 2 doses and Octreotide LAR 20mg IM monthly. 04/28/21 (Dr. Anam Abarca) feels ok today, energy stable denies any bleeding, denies ice cravings continues to take PPI daily, hemorrhoids under control denies any lightheadedness iron continues to be low, so will recommend updated scopes 10/24/2021 ([facility]) her energy is much improved after receiving Feraheme in September at [facility] she has her labs done at [facility] as well, none done this month for [...] & no additional complaints except as documented [facility] - Medical History Medical History: Medical History [...] of the small bowel 04/28/2021 follow-up in [place]: o FeraHeme 510 mg IV o Repeat Iron Studies, CBC, Ferritin in 1 month o Follow-up in [address] Rivera at [facility] September 2021 follow-up labs at [facility] with again low iron saturation at 3.5%, ferritin 15 and hemoglobin 6.6. She received 2 doses of Feraheme as well as 2 units PRBCs at [facility] 10/24/2021: She feels much better after receiving [...] have her follow-up in 6 weeks with [facility] and will plan for repeat iron studies [...] for coordination of care (as documented) and ctyu-oe-yorl counseling of patient and/or family. Dictated By: Shiela Chan APRN DD/ 1151 Signed By: <Electronically signed by SONIA Chan> 01/05/22 1224 [facility] Work Phone: 1(875) 294-572104-23-2022 Progress note Author Taina Toussaint [facility] November 25, 2021 2:17pm Note Date/Time November 24, 2021 11: 39am [facility] [place] [id number] Hem/Onc Follow Up Note - OP Signed Patient: Janine Conde MR#: [id number] : 1950 Acct:[id number] Age/Sex: 71 / F Type: REG RCR [...] recent RBC transfusion and iron infusions at [place] but persistent fatigue. She still has episodes [...] No iron panel was reported. Labs from [place] 11/22/2021 with improved hemoglobin to 9.4 but still low iron saturation 3.9% and ferritin 20. 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 Followup with [facility] in 6 weeks to review iron studies [...] improved after receiving Feraheme in September at [facility] she has her labs done at [facility] as well, none done this month for [...] Depressed Mood [-], Anxiety [-], Stressed [-] [facility] - History Attestation statement: The following information [...] CMP 01/19/21 09:05 01/01/20 11:27 Outside Labs: [facility] labs: 11/22/2021: WBC 4800, Hg 9.4, [...] of the small bowel 04/28/2021 follow-up in [place]: o FeraHeme 510 mg IV o Repeat Iron Studies, CBC, Ferritin in 1 month o Follow-up in [address] Rivera at [facility] September 2021 follow-up labs at [facility] with again low iron saturation at 3.5%, ferritin 15 and hemoglobin 6.6. She received 2 doses of Feraheme as well as 2 units PRBCs at [facility] 10/24/2021: She feels much better after receiving [...] have her follow-up in 6 weeks with [facility] and will plan for repeat iron studies [...] for coordination of care (as documented) and sheg-bb-ifqc counseling of patient and/or family. Dictated By: Taina Toussaint MD DD/ 1138 Signed By: <Electronically signed by MD Taina Toussaint> 11/25/21 9964 [facility] Work Phone: 1([phone]) 117-112903-22-2022 Progress note Author Shiela Chan [facility] October 24, 2021 2:26pm Note Date/Time October 24, 2021 2:0 8pm [facility] [place] [address] Hem/Onc Follow Up Note - OP Signed Patient: Janine Conde MR#: [id number] : 1950 Acct:[id number] Age/Sex: 70 / F Type: REG RCR [...] improved after receiving feraheme in September at [facility] she has her labs done at [facility] as well, none done this month for [...] of the small bowel 04/28/2021 follow-up in [place]: o FeraHeme 510 mg IV o Repeat Iron Studies, CBC, Ferritin in 1 month o Follow-up in [address] rivera at [facility] September 2021 follow-up labs at [facility] with again low iron saturation at 3.5%, ferritin 15 and hemoglobin 6.6. She received 2 doses of Feraheme as well as 2 units PRBCs at [facility] 10/24/2021: She feels much better after receiving [...] for coordination of care (as documented) and jdvm-se-krcf counseling of patient and/or family. Dictated By: Shiela Chan APRN DD/ 1408 Signed By: <Electronically signed by SONIA Chan> 10/24/21 2741 [facility] Work Phone: 1(733) 730-110910-02-2021 Progress note Author Francesco Solano [facility] May 05, 2021 11:24pm Note Date/Time April 28, 2021 12:03pm [facility] [place] [id number] Hem/Onc Follow Up Note - OP Signed Patient: Janine Conde MR#: [id number] : 1950 Acct:[id number] Age/Sex: 70 / F Type: REG RCR [...] she consider repeat EGD/COLONOSCOPY. to follow-up in [place]: o FeraHeme 510 mg IV o Repeat Iron Studies, CBC, Ferritin in 1 month o Follow-up in [address] rievra at [facility] (2) B12 deficiency Plan: She is getting B12 injection monthly with PCP. (3) Hiatal hernia (4) Obesity, morbid, BMI 40.0-49.9 Follow Up Instructions: cbc, iron studies, ferritin in [place] 1mo iv iron in [place] follow up in [place] in 1 month IVamshi DO have seen and evaluated this patient with Shahla Yates NP. I personally have contributed to the history, physical, assessment and plan as laid out in this document. - History of Present Illness Chief Complaint: Patient is a former patient of Dr Anam subramanian seen by Dr Lizarraga. She is here [...] for coordination of care (as documented) and fofe-ec-kleo counseling of patient and/or family. [facility] - Medical History Medical History: Medical History [...] signed by Francesco Solano II, DO> 05/05/[address] [place] [address] Work Phone: 1(260) 617-684706-17-2021 Progress note Author Nghai Lizarraga [facility] January 19, 2021 10:59am Note Date/Time January 19, 2021 10:4 6am [facility] [place] [address] Hem/Onc Follow Up Note - OP Signed Patient: Janien Conde MR#: [id number] : 1950 Acct:[id number] Age/Sex: 70 / F Type: REG RCR [...] Depressed Mood [-], Anxiety [-], Stressed [-] [facility] - Medical History Medical History: Medical History [...] % (Auto) 24.0 % (.) 01/19/21 09:05 [place]ner % (Auto) 9.1 % (.) 01/19/21 09:05 Eos % (Auto) 2.2 % (.) 01/19/21 09:05 Baso % (Auto) 2.1 % (.) 01/19/21 09:05 Neut # (Auto) 2.5 x10E3/uL (1.8-7.7) 01/19/21 09:05 Lymph # (Auto) 1.0 x10E3/uL (1.00-4.8) 01/19/21 09:05 [place] # (Auto) 0.4 x10E3/uL (0.0-0.8) 01/19/21 09:05 [...] Ovalocytes Slight 01/19/21 09:05 PHA Creatinine Clear [id number] 01/01/20 11:27 Sodium 137 mmol/L (136-146) 01/01/20 [...] pH 6.5 (5.0-9.0) 01/11/20 15:16 Ur Specific [place] 1.009 (1.001-1.030) 01/11/20 15:16 Urine Protein Negative [...] for coordination of care (as documented) and dthp-kq-qeme counseling of patient and/or family. Dictated By: Nghia Lizarraga MD DD/ 1045 Signed By: <Electronically signed by Nghia Lizarraga MD> 01/19/21 1059 [facility] Work Phone: 1([phone]) 387-393904-20-2021 Progress note Author Anam Abarca [facility] November 22, 2020 2:25pm Note Date/Time November 22, 2020 2:2 4pm [facility] [address] Hem/Onc Follow Up Note - OP Signed Patient: Janine Conde MR#: [id number] : 1950 Acct:[id number] Age/Sex: 70 / F Type: REG RCR [...] MUSCULOSKELETAL: No back pain, or joint pain. [facility] - Medical History Medical History: Medical History [...] for coordination of care (as documented) and adfp-uh-gdyh counseling of patient and/or family. Dictated By: Anam Abarca MD DD/ 142 Signed By: <Electronically signed by Anam Abarca MD> 11/22/20 1425 [facility] Work Phone: [phone]) 776-720902-04-2021 Progress note Author Anam Abarca [facility] September 08, 2020 1:41pm Note Date/Time September 08, 2020 1 :41pm [facility] [place] [address] Hem/Onc Follow Up Note - OP Signed Patient: Janine Conde MR#: [id number] : 1950 Acct:[id number] Age/Sex: 69 / F Type: REG RCR [...] MUSCULOSKELETAL: No back pain, or joint pain. [facility] - Medical History Medical History: Medical History [...] TOPICAL DAILY #30 g 02/11/20 [Rx Confirmed 02/04/21] Objective - Height/Weight Height/Weight: Height 5 ft [...] for coordination of care (as documented) and aeem-no-vedm counseling of patient and/or family. Dictated By: Anam Abarca MD DD/ 1339 Signed By: <Electronically signed by Anam Abarca MD> 09/08/20 1341 [facility] Work Phone: [phone]) 585-899512-04-2020 Progress note Author Anam Abarca [facility] July 08, 2020 12:39pm Note Date/Time July 08, 2020 1 1:53am [facility] [place] [address] Hem/Onc Follow Up Note - OP Signed with Addenda Patient: Janine Conde MR#: [id number] : 1950 Acct:[id number] Age/Sex: 69 / F Type: REG RCR [...] MUSCULOSKELETAL: No back pain, or joint pain. [facility] - Medical History Medical History: Medical History (Last Reviewed 01/07/20 @ 06:31 by Samina Pulido RN) Anxiety Depression GERD (gastroesophageal reflux disease) - Surgical History Surgical History: Surgical History (Last Reviewed 01/07/20 @ 06:31 by Samina Pulido RN) H/O: hysterectomy Hx of cholecystectomy - Family History Family History: Family History (Last Reviewed 01/07/20 @ 06:31 by Samina Ashok, RN) Son No problems noted. Mother Pancreatitis [...] was for coordination of care(as documented) and knvk-su-stmu counseling of patient and/or family. Dictated By: Anam Abarca MD DD/ 1152 Signed By: <Electronically signed by Anam Abarca MD> 07/08/20 1155 [facility] Work Phone: [phone]) 215-100011-06-2020 Progress note Author Anam Abarca [facility] June 10, 2020 1:38pm Note Date/Time June 10, 2020 1 :29pm [facility] [place] [address] Hem/Onc Follow Up Note - OP Signed Patient: Janine Conde MR#: [id number] : 1950 Acct:[id number] Age/Sex: 69 / F Type: REG RCR Copies to: DO Ricky Jordan MD~ Subjective Date/Time of Service: Date of Service: 06/10/2020 Time of Service: 13:25 Chief Complaint: Follow up after inpt stay HPI: Mrs. Conde returns for an earlier follow-up. She feels well. She presented to [facility] on 06/07/2020 for profound fatigue, found [...] MUSCULOSKELETAL: No back pain, or joint pain. [facility] - Medical History Medical History: Medical History [...] was for coordination of care(as documented) and wymt-iz-oqwm counseling of patient and/or family. Dictated By: Anam Abarca MD DD/ 1325 Signed By: <Electronically signed by Anam Abarca MD> 06/10/20 1338 [facility] Work Phone: [phone]) [phone] Progress note Author Anam Abarca [facility] April 07, 2020 1:21pm Note Date/Time April 07, 2020 1:17pm [facility] [place] [address] Hem/Onc Follow Up Note - OP Signed Patient: Janine Conde MR#: [id number] : 1950 Acct:[id number] Age/Sex: 69 / F Type: REG RCR [...] MUSCULOSKELETAL: No back pain, or joint pain. [facility] - Medical History Medical History: Medical History [...] was for coordination of care(as documented) and rajf-jr-zxir counseling of patient and/or family. Dictated By: Anam Abarca MD DD/ 1316 Signed By: <Electronically signed by Anam Abarca MD> 04/07/20 1321 [facility] Work Phone: [phone] Progress note Author Anam Abarca [facility] February 11, 2020 2:44pm Note Date/Time February 11, 2020 1:59p m [facility] [place] [address] Hem/Onc Follow Up Note - OP Signed Patient: Janine Conde MR#: [id number] : 1950 Acct:[id number] Age/Sex: 69 / F Type: REG RCR [...] MUSCULOSKELETAL: No back pain, or joint pain. [facility] - Medical History Medical History: Medical History [...] for coordination of care (as documented) and xlvm-tz-ivty counseling of patient and/or family. Dictated By: Anam Abarca MD DD/ 1357 Signed By: <Electronically signed by Anam Abarca MD> 02/11/20 1444 [facility] Work Phone: [phone] Consult note Author Anam Abarca [facility] January 01, 2020 12:16pm Note Date/Time January 01, 2020 12:04 pm [facility] [place] [address] Hem/Onc Consult Note - OP Signed Patient: Janine Conde MR#: [id number] : 1950 Acct:[id number] Age/Sex: 69 / F Type: REG RCR [...] anemia in 2018. She was hospitalized at [facility] last June, EGD revealed 2 small duodenal ulcers, colonoscopy was normal. She received PRBC transfusions, as well as IV iron with Ferric gluconate. During the same hospital stay she was found to have a subsegmental PE, placed onanticoagulation for 3 months. Her CBC on 12/10/2019 revealed hemoglobin 7.2, she received 2 units of PRBC transfusion at [facility]. She is currently taking oral iron [...] is currently receiving B12 supplement IM monthly. [facility] - Medical History Medical History: Medical History [...] 7 Days 01/01/20 11:27: PHA Creatinine Clear [id number], Sodium 137, Potassium 4.4, Chloride 107, Carbon [...] she is open to it. I did international student counselor her the risks of anaphylactic reaction, [...] minutes, including greater than 50%of time for lfoj-ka-wojk counseling and care coordination. - Time with Patient Coordination of Care & Counseling Time: Greater than 50% of time spent with patient was for coordination of care (as documented) and obgn-zl-dexy counseling of patient and/or family. Dictated By: Anam Abarca MD DD/ 1204 Signed By: <Electronically signed by Anam Abarca MD> 01/01/20 1216 [facility] Work Phone: evaluation note* Diagnosis Onset Date Resolution Status Skin lesion acute Angiodysplasia of small intestine chronic B12 deficiency chronic Hiatal hernia chronic Iron deficiency anemia chron ic Obesity, morbid, BMI 40.0-49.9 chronic [facility] Work Phone: evaluation noteNo [facility] Other Evaluation note* Diagnosis Onset Date Resolution Status Skin lesion acute Angiodysplasia of small intestine chronic B12 deficiency chronic Chronic Freedom ulcer chroni c Hiatal hernia chronic Iron deficiency anemia chron ic Obesity, morbid, BMI 40.0-49.9 chronic [facility] Work Phone: evaluation note* Diagnosis Onset Date Resolution Status Angiodysplasia of small intestine chronic B12 deficiency chronic Chronic Freedom ulcer chroni c Hiatal hernia chronic Obesity, morbid, BMI 40.0-49.9 chronic YARI (generalized anxiety disorder) acute Gastritis due to Helicobacter species acute H. pylori infection acute Iron deficiency anemia due to chronic blood loss acute [facility] Work Phone: evaluation note* Diagnosis Onset Date Resolution Status Angiodysplasia of small intestine chronic B12 deficiency chronic Chronic Freedom ulcer chroni c Hiatal hernia chronic Obesity, morbid, BMI 40.0-49.9 chronic Abnormal findings on esophagogastroduodenoscopy (EGD) acute YARI (generalized anxiety disorder) acute Gastritis due to Helicobacter species acute H. pylori infection acute Iron deficiency anemia due to chronic blood loss acute [facility] Work Phone: Evaluation note* Diagnosis Onset Date Resolution Status Abnormal findings on esophagogastroduodenoscopy (EGD) acute YARI (generalized anxiety disorder) acute Gastritis due to Helicobacter species acute H. pylori infection acute Iron deficiency anemia due to chronic blood loss acute Angiodysplasia of small intestine chronic B12 deficiency chronic Chronic Freedom ulcer chroni c Hiatal hernia chronic Obesity, morbid, BMI 40.0-49.9 chronic [facility] Work Phone: Evaluation note* Diagnosis Onset Date Resolution Status Abnormal [...] Hiatal hernia chronic Obesity, morbid, BMI 40.0-49.9 [facility] Work Phone: Evaluation note* Diagnosis Onset Date Resolution Status Abnormal [...] Freedom ulcer chroni c Hiatal hernia acute [facility] Work Phone: Evaluation note* Diagnosis Onset Date Resolution Status Iron deficiency anemia due to chronic blood loss acute Angiodysplasia of small intestine chronic B12 deficiency chronic Chronic Freedom ulcer chroni c Hiatal hernia chronic Obesity, morbid, BMI 40.0-49.9 chronic Hiatal hernia acute Iron deficiency anemia due to chronic blood loss acute Chronic Freedom ulcer chroni c [facility] Work Phone: Evaluation note* Diagnosis Onset [...] anemia due to chronic blood loss acute [facility] Work Phone: Evaluation note* Diagnosis Onset [...] noneactive Screening mammogram for breast cancer noneactive [facility] Work Phone: Evaluation note* Diagnosis Onset Date Resolution Status YARI (generalized anxiety disorder) acute GERD (gastroesophageal reflux disease) acute Iron deficiency anemia due to chronic blood loss acute Pernicious anemia acute Primary hypertension acute Obesity, morbid, BMI 40.0-49.9 chronic Medicare annual wellness visit, subsequent noneactive Screening mammogram for breast cancer noneactive [facility] Work Phone: History general Narrative - Reported* Type Description Date Medical History high cholesterol Medical History anxiety Medical History sleep disorder/insomnia Surgical History bunionectomy left foot Surgical History total hysterectomy Surgical History cholecystectomy Surgical History T&A Surgical History Oral Surgery Hospitalization History GI bleeding 06/2019 [employer] Other [facility] general Narrative - Reported* Type Description Date [...] History EGD Hospitalization History GI bleeding 06/2019 [employer] Other [facility] general Narrative - ReportedNortEachpal Other [facility] general Narrative - Reported* Type Description Date [...] enteroscopy 05/2023 Hospitalization History GI bleeding 06/2019 [employer] Other Hospital Discharge instructions Additional Instructions DISCHARGE [...] if you have any problems. -Office number [phone] Work Phone: InstructionsNot on filedocumented in this encounter [facility]Not on filedocumented in this encounter [facility] SystemInstructionsNot on filedocumented in this encounter [facility] SystemProgress note Author Gertrudis [facility] August 09, 2022 2:19pm Note Date/Time August 09, 2022 2: 03pm [facility] [place] [address] Hem/Onc Follow Up Note - OP Signed Patient: Janine Conde MR#: [id number] : 1950 Acct:[id number] Age/Sex: 71 / F Type: REG RCR [...] 1 on 11/30/2021. Most recent laboratories from [facility] dated 08/06/2022 reveal hemoglobin - 10.7; [...] withactivities and her most recent labs at [facility] 06/04/2022 showed hemoglobin 11.7 with serum [...] fatigue. Will continue close follow up. 01/05/2022: Jannie presents for follow-up of her iron deficiency [...] that time. On review, her labs from [facility] reveal hgb 9.0 and iron saturation 5%. We will plan for repeat Feraheme x 2 doses and will follow-up in 6 weeks again for repeat labs 11/24/2021: She is here for follow-up today and transfer of followup (previouslyfollowed by Dr. Anam Abarca). She reports improved energy since most recent RBC transfusion and iron infusions at [place] but persistent fatigue. She still has episodes [...] No iron panel was reported. Labs from [facility] 11/22/2021 with improved hemoglobin to 9.4 but still low iron saturation 3.9% and ferritin 20. 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 Followup with [facility] in 6 weeks to review iron studies [...] improved after receiving Feraheme in September at [facility] she has her labs done at [facility] as well, none done this month for [...] Depressed Mood [-], Anxiety [-], Stressed [-] [facility] - Medical History Medical History: Medical History [...] of the small bowel 04/28/2021 follow-up in [place]: o FeraHeme 510 mg IV o Repeat Iron Studies, CBC, Ferritin in 1 month o Follow-up in [address] Rivera at [facility] September 2021 follow-up labs at [facility] with again low iron saturation at 3.5%, ferritin 15 and hemoglobin 6.6. She received 2 doses of Feraheme as well as 2 units PRBCs at [facility] 10/24/2021: She feels much better after receiving [...] have her follow-up in 6 weeks with [facility] and will plan for repeat iron studies [...] 1 on 11/30/2021. Most recent laboratories from [facility] dated 08/06/2022 reveal hemoglobin - 10.7; [...] for coordination of care (as documented) and ufix-re-wksj counseling of patient and/or family. Dictated By: Gertrudis Louis APRN DD/ 1350 Signed By: <Electronically signed by SONIA Louis> 08/09/22 1419 [facility] Work Phone: Progress note Author Shiela Chan [facility] January 08, 2023 2:18pm Note Date/Time January 08, 2023 2:14p m [facility] [place] [address] Hem/Onc Follow Up Note - OP Signed Patient: Janine Conde MR#: [id number] : 1950 Acct:[id number] Age/Sex: 72 / F Type: REG RCR [...] of the small bowel 04/28/2021 follow-up in [place]: o FeraHeme 510 mg IV o Repeat Iron Studies, CBC, Ferritin in 1 month o Follow-up in [address] Rivera at [facility] September 2021 follow-up labs at [facility] with again low iron saturation at 3.5%, ferritin 15 and hemoglobin 6.6. She received 2 doses of Feraheme as well as 2 units PRBCs at [facility] 10/24/2021: She feels much better after receiving [...] have her follow-up in 6 weeks with [facility] and will plan for repeat iron studies [...] 1 on 11/30/2021. Most recent laboratories from [facility] dated 08/06/2022 reveal hemoglobin - 10.7; [...] admitted for 2-3 days with anemia at [facility] and received transfusional support. Current labs reveal [...] symptoms. She notes she was admitted at [facility] end of September for anemia and received [...] 1 on 11/30/2021. Most recent laboratories from [facility] dated 08/06/2022 reveal hemoglobin - 10.7; [...] withactivities and her most recent labs at [facility] 06/04/2022 showed hemoglobin 11.7 with serum [...] that time. On review, her labs from [facility] reveal hgb 9.0 and iron saturation 5%. We will plan for repeat Feraheme x 2 doses and will follow-up in 6 weeks again for repeat labs 11/24/2021: She is here for follow-up today and transfer of followup (previouslyfollowed by Dr. Anam Abarca). She reports improved energy since most recent RBC transfusion and iron infusions at [facility] but persistent fatigue. She still has episodes [...] No iron panel was reported. Labs from [facility] 11/22/2021 with improved hemoglobin to 9.4 but still low iron saturation 3.9% and ferritin 20. 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 Followup with [facility] in 6 weeks to review iron studies [...] improved after receiving Feraheme in September at [facility] she has her labs done at [facility] as well, none done this month for [...] symptoms. She notes she was admitted at [facility] end of September for anemia and received [...] for coordination of care (as documented) and bhar-fd-vyqd counseling of patient and/or family. [facility] - Medical History Medical History: Medical History [...] <Electronically signed by SONIA Chan> 01/08/23 1418 [facility] Work Phone: Progress note Author Shiela Chan [facility] March 12, 2023 3:30pm Note Date/Time March 12, 2023 1:3 3pm [facility] [place] [address] Hem/Onc Follow Up Note - OP Signed Patient: Janine Conde MR#: [id number] : 1950 Acct:[id number] Age/Sex: 72 / F Type: REG RCR [...] of the small bowel 04/28/2021 follow-up in [place]: o FeraHeme 510 mg IV o Repeat Iron Studies, CBC, Ferritin in 1 month o Follow-up in [address] Rivera at [facility] September 2021 follow-up labs at [facility] with again low iron saturation at 3.5%, ferritin 15 and hemoglobin 6.6. She received 2 doses of Feraheme as well as 2 unitsPRBCs at [facility] 10/24/2021: She feels much better after receiving [...] have her follow-up in 6 weeks with [facility] and will plan for repeat iron studies [...] 1 on 11/30/2021. Most recent laboratories from [facility] dated 08/06/2022 reveal hemoglobin - 10.7; [...] admitted for 2-3 days with anemia at [facility] and received transfusional support. Current labs reveal [...] symptoms. She notes she was admitted at [facility] end of September for anemia and received [...] 1 on 11/30/2021. Most recent laboratories from [facility] dated 08/06/2022 reveal hemoglobin - 10.7; [...] withactivities and her most recent labs at [facility] 06/04/2022 showed hemoglobin 11.7 with serum [...] that time. On review, her labs from [facility] reveal hgb 9.0 and iron saturation 5%. We will plan for repeat Feraheme x 2 doses and will follow-up in 6 weeks again for repeat labs 11/24/2021: She is here for follow-up today and transfer of followup (previouslyfollowed by Dr. Anam Abarca). She reports improved energy since most recent RBC transfusion and iron infusions at [facility] but persistent fatigue. She still has episodes [...] No iron panel was reported. Labs from [place] 11/22/2021 with improved hemoglobin to 9.4 but still low iron saturation 3.9% and ferritin 20. 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 Followup with [facility] in 6 weeks to review iron studies [...] improved after receiving Feraheme in September at [facility] she has her labs done at [facility] as well, none done this month for [...] symptoms. She notes she was admitted at [facility] end of September for anemia and received [...] for coordination of care (as documented) and injg-xn-jous counseling of patient and/or family. [facility] - Medical History Medical History: Medical History [...] <Electronically signed by SONIA Chan> 03/12/23 1530 [facility] Work Phone: Progress note Author Shiela Chan [facility] August 13, 2023 1:27pm Note Date/Time August 13, 2023 1: 13pm [facility] [place] [address] Hem/Onc Follow Up Note - OP Signed Patient: Janine Conde MR#: [id number] : 1950 Acct:[id number] Age/Sex: 72 / F Type: REG RCR [...] have her follow-up in 6 weeks with [facility] and will plan for repeat iron studies [...] admitted for 2-3 days with anemia at [facility] and received transfusional support. Current labs reveal [...] Injectafer in November/January/March 2023. Followup labs at [facility] show hemoglobin 8.4 with iron saturation [...] symptoms. She notes she was admitted at [facility] end of September for anemia and received [...] 1 on 11/30/2021. Most recent laboratories from [facility] dated 08/06/2022 reveal hemoglobin - 10.7; [...] withactivities and her most recent labs at [facility] 06/04/2022 showed hemoglobin 11.7 with serum [...] that time. On review, her labs from [facility] reveal hgb 9.0 and iron saturation 5%. We will plan for repeat Feraheme x 2 doses and will follow-up in 6 weeks again for repeat labs 11/24/2021: She is here for follow-up today and transfer of followup (previouslyfollowed by Dr. Anam Abarca). She reports improved energy since most recent RBC transfusion and iron infusions at [facility] but persistent fatigue. She still has episodes [...] No iron panel was reported. Labs from [place] 11/22/2021 with improved hemoglobin to 9.4 but still low iron saturation 3.9% and ferritin 20. 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 Followup with [facility] in 6 weeks to review iron studies after Feraheme 510mg x 2 doses and Octreotide LAR 20mg IM monthly. 10/24/2021 (YAZAN Chan) her energy is much improved after receiving Feraheme in September at [facility] she has her labs done at [facility] as well, none done this month for [...] for coordination of care (as documented) and ikyz-wf-yqpe counseling of patient and/or family. [facility] - Medical History Medical History: Medical History [...] <Electronically signed by SONIA Chan> 08/13/23 1327 [facility] Work Phone: Summary Purpose Family History Relationship [...] Date/ Time Advance Directives No April 3:47pm Advance Directive Response Recorded Date/ Time Advance Directives No April 2:47pm Chief Complaint and Reason for Visit Chief [...] for Visit Abnormal findings on esophagogastroduodenoscopy (EGD) YAIR (generalized anxiety disorder) Gastritis due to Helicobacter [...] to chronic blood loss Chronic Freedom ulcer Chief Complaint b12 4 MONTH F/U-FREEDOM [...] Screening mammogram for breast cancer Chief Complaint Medicare Wellness/ B 12 shot B12 shot/flu B12 Shot Reason for Visit YARI (generalized anx iety disorder) GERD (gastroesophageal reflux disease) Iron deficiency anemia due to chronic blood loss Pernicious anemia Primary hypertension Obesity, morbid, BMI 40.0-49.9 Medicare annual wellness visit, subsequent Screening mammogram for breast cancer Chief Complaint Admit Date B12 shot July 09, 2024 3 :17pm Follow Up August 26, 2024 1 0:51am Reason for Visit Admit Date Pernicious anemia July 09, 2024 3 :17pm Angiodysplasia of small intestine Januar y 2024 10:51am Hiatal hernia August 26, 2024 1 0:51am Obesity, morbid, BMI 40.0-49.9 August 062024 10:51am B12 deficiency August 26, 2024 1 0:51am Chronic Freedom ulcer August 26, 2024 10:51am Iron deficiency anemia August 26 10:51am Skin lesion August 26, 2024 1 0:51am Iron deficiency anemia due to chronic bl ood loss August 26, 2024 10:51am Chief Complaint Admit Date B12 shot July 09, 2024 3 :17pm Follow Up August 26, 2024 1 0:51am Iron Def, anemia September 07, 2024 1 2:48pm 6 month f/u/B12 shot September 09, 2024 1:24pm Reason for Visit Admit Date Pernicious anemia July 09, 2024 3 :17pm Chronic Freedom ulcer August 26, 2024 10:51am Hiatal hernia August 26, 2024 1 0:51am Iron deficiency anemia due to chronic bl ood loss August 26, 2024 10:51am Angiodysplasia of small intestine Januar y 2024 10:51am B12 deficiency August 26, 2024 1 0:51am Angiodysplasia of small intestine ua 2024 12:48pm Hiatal hernia September 07, 2024 1 2:48pm B12 deficiency September 07, 2024 1 2:48pm Chronic Freedom ulcer September 07, 2024 12:48pm Iron deficiency anemia September 07 12:48pm Obesity, morbid, BMI 40.0-49.9 September 07, 2024 12:48pm Skin lesion September 07, 2024 1 2:48pm YARI (generalized anxiety disorder) Febru jelena 2024 1:24pm GERD (gastroesophageal reflux disease) F ebruary 2024 1:24pm Iron deficiency anemia due to chronic bl ood loss September 09, 2024 1:24pm Obesity September 09, 2024 1 :24pm Pernicious anemia September 09, 2024 1 :24pm Primary hypertension September 09, 2024 1:24pm Chief Complaint Admit Date Follow Up August 26, 2024 1 0:51am Iron Def, anemia September 07, 2024 1 2:48pm 6 month f/u/B12 shot September 09, 2024 1:24pm B12 shot October 27, 2024 2:1 8pm Reason for Visit Admit Date Chronic Freedom ulcer August 26, 2024 10:51am Hiatal hernia August 26, 2024 1 0:51am Iron deficiency anemia due to chronic bl ood loss August 26, 2024 10:51am Angiodysplasia of small intestine Januar y 2024 10:51am B12 deficiency August 26, 2024 1 0:51am Angiodysplasia of small intestine Februa ry 2024 12:48pm Hiatal hernia September 07, 2024 1 2:48pm B12 deficiency September 07, 2024 1 2:48pm Chronic Freedom ulcer September 07, 2024 12:48pm Iron deficiency anemia September 07 12:48pm Obesity, morbid, BMI 40.0-49.9 September 07, 2024 12:48pm Skin lesion September 07, 2024 1 2:48pm Diarrhea September 09, 2024 1 :24pm YARI (generalized anxiety disorder) Febru [email or web address] 1:24pm GERD (gastroesophageal reflux disease) F [facility] 2024 1:24pm Iron deficiency anemia due to chronic bl ood loss September 09, 2024 1:24pm Obesity September 09, 2024 1 :24pm Pernicious anemia September 09, 2024 1 :24pm Primary hypertension September 09, 2024 1:24pm Chief Complaint Admit Date 6 month f/u/B12 shot September 09, 2024 1:24pm B12 shot October 27, 2024 2:1 8pm Follow Up November 19, 2024 2:1 7pm Iron Def, anemia November 19, 2024 2:1 8pm B12 shot November 30, 2024 4:0 0pm Reason for Visit Admit Date Diarrhea September 09, 2024 1 :24pm YARI (generalized anxiety disorder) u jelena 2024 1:24pm GERD (gastroesophageal reflux disease) F [facility] 2024 1:24pm Iron deficiency anemia due to chronic bl ood loss September 09, 2024 1:24pm Obesity September 09, 2024 1 :24pm Pernicious anemia September 09, 2024 1 :24pm Primary hypertension September 09, 2024 1:24pm Chronic Freedom ulcer November 19, 2024 2 :17pm Hiatal hernia November 19, 2024 2:1 7pm Iron deficiency anemia due to chronic bl ood loss November 19, 2024 2:17pm Angiodysplasia of small intestine November 19, 2024 2:17pm Angiodysplasia of small intestine November 19, 2024 2:18pm Hiatal hernia November 19, 2024 2:1 8pm B12 deficiency November 19, 2024 2:1 8pm Chronic Freedom ulcer November 19, 2024 2 :18pm Iron deficiency anemia November 19, 2024 2:18pm Obesity, morbid, BMI 40.0-49.9 November 2:18pm Skin lesion November 19, 2024 2:1 8pm Chief Complaint Admit Date 6 month f/u/B12 shot September 09, 2024 1:24pm B12 shot October 27, 2024 2:1 8pm Follow Up November 19, 2024 2:1 7pm Iron Def, anemia November 19, 2024 2:1 8pm B12 shot November 30, 2024 4:0 0pm Cough/Cold December 08, 2024 1:33pm Reason for Referral Reason Mrs. Conde is bein g referred for breast reduction surgery Diagnosis 1 Macromastia (N62) Referral Organization [facility] Referring Provider First Name Shalom Referring Provider Last Name Mainor Referring Provider Specialty Internal Me dicine Referred Organization [facility] Referred Provider Gm Johnson Referred Address [address] [place] [address] [place],[address] Referred Provider Specialty Plastic and Reconstructive Surgery [...] section and content) DATE CREATED AUTHOR 04/17/2022 [facility] DATE CREATED AUTHOR AUTHOR'S ORGANIZ ATION 11/10/2022 [facility] DATE CREATED AUTHOR AUTHOR'S ORGANIZ ATION 11/22/2024 [facility] Care Teams (unrecognized sec tion and content) Team Status: Active Member Role Status Dates Shalom Hayward DO Primary Care Provider Active Team Status: Inactive Member Role Status Dates Shalom Hayward DO Primary Care Provide r, Attending Provider Active Start: September 09, 2024 End: September 09, 2024 Team Status: Active Member Role Status Dates Shalom Hayward DO Primary Care Provide r, Attending Provider Active Start: October 20, 2024 Team Status: Inactive Member Role Status Dates Shalom Hayward DO Primary Care Provide r, Attending Provider Active Start: October 27, 2024 End: October 27, 2024 Team Status: Inactive Member Role Status Dates Shalom Hayward DO Primary Care Provider Active Start: November 19, 2024 End: November 19, 2024 Francesca Devries APRN Attending Provider Active Start: November 19, 2024 End: November 19, 2024 Team Status: Active Member Role Status Dates Shalom Hayward DO Primary Care Provider Active Start: November 19, 2024 Ricky Benson MD Referring Provider Active Start: November 19, 2024 Taina Toussaint MD Attending Provider Active Start: November 19, 2024 Team Status: Inactive Member Role Status Dates Shalom Hayward DO Primary Care Provide r, Attending Provider Active Start: November 30, 2024 End: November 30, 2024 Team Status: Active Member Role Status Dates Shalom Hayward DO Primary Care Provide r, Attending Provider Active Start: August 11, 2024 Team Status: Inactive Member Role Status Dates Shalom Hayward DO Primary Care Provider Active Start: August 26, 2024 End: August 26, 2024 Taina Toussaint MD Attending Provider Active Start: August 26, 2024 End: August 26, 2024 Team Status: Active Member Role Status Dates Shalom Hayward DO Primary Care Provider Active Start: September 07, 2024 Ricky Benson MD Referring Provider Active Start: September 07, 2024 Taina Toussaint MD Attending Provider Active Start: September 07, 2024 Team Status: Inactive Member Role Status [...] 2024 Team Status: Inactive Member Role Status Yasmany Hayward DO Primary Care Provide r, Attending Provider Active Start: February 04, 2024 End: February 04, 2024 Team Status: Active Member Role Status Yasmany [...] Status: Inactive Member Role Status Dates Shalom Ball , DO Attending Provider Active Sta rt: August [...] Active Ricky Benson MD Attending Provider Active Team Status: Active Member Role [...] 2024 Team Status: Inactive Member Role Status Yasmany Hayward DO Primary Care Provide r, Attending Provider Active Start: April 14, 2024 End: April 14, 2024 Team Status: Active Member Role Status Yasmany Hayward DO Primary Care Provide r, Attending Provider Active Start: May 15, 2024 Team Status: Inactive Member Role Status Yasmany Hayward DO Primary Care Provide r, Attending Provider Active Start: May 19, 2024 End: May 19, 2024 Team Status: Inactive Member Role Status Dates Shalom Hayward DO Primary Care Provider Active Start: July 09, 2024 End: July 09, 2024 Kiara Ortiz MD Attending Provider Active St art: July 09, 2024 End: July 09, 2024 Team Status: Inactive Member Role Status Dates Shalom Hayward DO Primary Care Provider Active Start: August 26, 2024 End: August 26, 2024 Taina Toussaint MD Attending Provider Active Start: August 26, 2024 End: August 26, 2024 Taina Toussaint MD Attending Provider Active Start: August 26, 2024 Lead Presser Relationship Specialty Start Date End Date Shalom Hayward DO [address] [place] [address] PCP - General Internal Medicine 10/23/23 Lead Presser Relationship Specialty Start Date End Date Shalom Hayward DO [address] [place] [address] PCP - General Internal Medicine 10/23/23 Lead Presser Relationship Specialty Start Date End Date Shalom Hayward DO [address] [place] [address] PCP - General Internal Medicine 10/23/23 Lead Presser Relationship Specialty Start Date End Date Shalom Hayward DO [address] [place] [address] PCP - General Internal Medicine 10/23/23 Lead Presser Relationship Specialty Start Date End Date Shalom Hayward DO [address] [place] [address] PCP - General Internal Medicine 10/23/23 Lead Presser Relationship Specialty Start Date End Date Shalom Hayward DO [address] [place] [address] PCP - General Internal Medicine 10/23/23 Team Status: Inactive Member Role Status Dates Shalom Hayward DO Primary Care Provide r, Attending Provider Active Start: December 08, 2024 End: December 08, 2024 Goals (unrecognized section and content) Goals may be documented in a n alternate sectionNo InformationNo InformationNo InformationNo InformationNo InformationNo InformationNo InformationNo InformationNo InformationNo InformationNo InformationNo InformationNo InformationNo InformationNo InformationNo InformationNo InformationNo InformationNo InformationNo InformationGoals may be documented in an alternate sectionGoals may be documented in an alternate sectionNot on filedocumented as of this encounterNot on filedocumented as of this encounterNot on filedocumented as of this encounterNot on filedocumented as of this encounterNot on filedocumented as of this encounterNot on filedocumented as of this encounterNot on filedocumented as of this encounterNot on filedocumented as of this encounter REASON FOR VISIT (unrecogniz ed section and content) [id number] follow upCHECK UPMedication ChangeB-12 Shot6 WEEK FOLLOW [id number] here at the request of Shiela Chan NP for iron deficiency anemiaNo InformationNo [id number] SHOTPatient here for follow up EGD6 month [...] BE BASED ON THE PRIMARY CLINICAL RECORDS. [facility]. provides no warranty or guarantee of the accuracy or completeness of information in this document.
[2024-12-31 19:04] VITALS: BP 123/67; PULSE 111; TEMP 36.9; O2SAT 94; BMI 39.4
[2024-12-31 19:22] VITALS: PULSE 105
--- NOTE | 2024-12-31 19:22 | ECG_ITS ---
[facility] Test Date: 2024-12-31 Pat Name: JANINE CONDE Department: Room: - Gender: Female Back End Developer: : 1950 Requested By: [id number] Order Number: [id number] Reading MD: LUKE IKNG M.D. Measurements Intervals Cruger Rate: 105 P: 39 IA: 116 QRS: 5 QRSD: 78 T: 10 QT: 336 QTc: 397 Interpretive Statements 1120 Sinus tachycardia 2210 Short IA interval 9150 abnormal ECG Compared to ECG 10/21/2023 06:10:38 Short IA interval now present First degree AV block no longer present ST (T wave) deviation no longer present Electronically Signed On 12-31-2024 21:17:11 EDT by LUKE KING M.D.
--- NOTE | 2024-12-31 19:23 | ED.GENADUL1 ---
HPI HPI - General Adult General Chief complaint: Weakness Stated complaint: dizzy, weakness Time Seen by Provider: 12/31/24 19:21 Source: patient Mode of arrival: walk-in Limitations: no limitations History of Present Illness HPI narrative: 74 year old female presents to the ED for intermittent episodes of head fullness, feeling lightheaded, and tingling to her lips. Onset was 12/27/24. Denies fever, chills, vision changes, CP, SOB. She did have URI symptoms last week. She has chronic diarrhea s/p having a cholecystectomy. Denies abd pain, N/V. She receives iron infusions every 3 months; her last infusion was about 3 months ago. She did go to [employer] just prior to arrival. Reports dark stools which she attributes to the iron supplement she takes daily and the Pepto-bismol she recently consumed. Related Data Home Medications ?Medication ?Instructions ?Recorded ?Confirmed buspirone 15 mg tablet 22.5 mg PO BID 10/21/23 12/31/24 clonazepam 0.5 mg tablet 0.5 mg PO QPM 10/21/23 12/31/24 clonidine HCl 0.1 mg tablet 0.1 mg PO .once a day 10/21/23 12/31/24 trazodone 100 mg tablet 100 mg PO QPM 10/21/23 12/31/24 venlafaxine 150 mg 150 mg PO DAILY 10/21/23 12/31/24 capsule,extended release 24 hr Previous Rx's ?Medication ?Instructions ?Recorded pantoprazole 40 mg tablet,delayed 40 mg PO BID #60 tabs 10/22/23 release sucralfate 1 gram tablet 1 g PO ACHS #120 tabs 10/22/23 Allergies Allergy/AdvReac Type Severity Reaction Status Date / Time No Known Drug Allergies Allergy Verified 12/31/24 19:01 Opioid HPI Opioid Management Most Recent Opioid Data: Last Pain Scale 3 10/22/23, 11:00 Last ORT Total Score 4 10/21/23, 08:42 Last ORT Risk Category Moderate Risk 10/21/23, 08:42 Review of Systems ROS Constitutional Reports: chills; Denies: fever or fatigue Ears, nose, mouth, and throat Denies: throat pain, neck pain, nasal discharge or nasal congestion Cardiovascular Reports: lightheadedness; Denies: chest pain or palpitations Respiratory Denies: shortness of breath or cough Gastrointestinal Denies: abdominal pain, nausea or vomiting Genitourinary Denies: painful urination, urinary frequency or urinary urgency Integumentary/Breast Denies: rash Neurological Reports: dizziness; Denies: headache, numbness in extremities, weakness in extremities, lack of coordination, confusion or slurred speech [facility] Medical History (Updated 12/31/24 @ 21:42 by Luzma Paula) Chronic erosive gastritis ?K29.40 - Chronic atrophic gastritis without bleeding (ICD-10) History of peptic ulcer disease ?Z87.11 - Personal history of peptic ulcer disease (ICD-10) Obesity due to excess calories ?E66.09 - Other obesity due to excess calories (ICD-10) Nondependent alcohol abuse, continuous drinking behavior ?F10.10 - Alcohol abuse, uncomplicated (ICD-10) Benign essential hypertension ?I10 - Essential (primary) hypertension (ICD-10) Hiatal hernia with GERD ?K44.9 - Diaphragmatic hernia without obstruction or gangrene (ICD-10) ?K21.9 - Gastro-esophageal reflux disease without esophagitis (ICD-10) Iron deficiency anemia due to chronic blood loss ?D50.0 - Iron deficiency anemia secondary to blood loss (chronic) (ICD-10) Peptic ulcer disease with hemorrhage ?K27.4 - Chronic or unspecified peptic ulcer, site unspecified, with hemorrhage (ICD-10) FHx: cholecystectomy ?Z83.79 - Family history of other diseases of the digestive system (ICD-10) GI bleed ?K92.2 - Gastrointestinal hemorrhage, unspecified (ICD-10) Iron deficiency anemia ?D50.9 - Iron deficiency anemia, unspecified (ICD-10) Surgical History H/O: hysterectomy ?Z90.710 - Acquired absence of both cervix and uterus (ICD-10) Social History Within the past year, how often did you have a drink containing alcohol: 4 or more times a week Within the past year, how many standard drinks containing alcohol did you have on a typical day: 5 or 6 Within the past year, how often did you have six or more drinks on one occasion: weekly Total score: 7 Score interpretation: A score of 3 or more indicates drinking is likely to affect patient's safety. Smoking status: Never smoker Non-prescribed substance use: denies use Previous occupational history: [place] Known occupational exposures/hazards: No Highest level of school completed/degree received: high school graduate Little interest or pleasure in doing things: not at all Feeling down, depressed, or hopeless: not at all Exam Constitutional Vital Signs, click to edit/add: Last Vital Signs Temp 98.4 F 12/31/24 19:04 Pulse 111 H 12/31/24 19:04 Resp 16 12/31/24 19:04 BP 123/67 12/31/24 19:04 Pulse Ox 94 L 12/31/24 19:04 Common normals: no apparent distress and oriented x3 General appearance: cooperative HENMT Common normals: external ears normal and moist oral mucous membranes Eye Common normals: PERRL, EOMs intact bilaterally, conjunctivae normal and no scleral icterus Neck & C-Spine Common normals: supple Chest Chest: symmetrical chest wall rise Respiratory Common normals: normal respiratory effort and clear to auscultation bilaterally Effort & inspection: able to speak in complete sentences and symmetric chest movement Cardio Common normals: regular rate and regular rhythm GI Common normals: soft to palpation and non-tender Neuro Joselin Coma Scale: document GCS findings Common normals: oriented x3, CN's II-XII intact bilaterally, moves all extremities and no focal motor deficits Sensorium/orientation: awake and alert Speech: speech normal Gait (neuro): normal gait Course Vital Signs Vital signs: Vital Signs Temperature 98.4 F 12/31/24 19:04 Pulse Rate 111 H 12/31/24 19:04 Respiratory Rate 16 12/31/24 19:04 Blood Pressure 123/67 12/31/24 19:04 Pulse Oximetry 94 L 12/31/24 19:04 Temperature 98.4 F 12/31/24 19:04 Pulse Rate 111 H 12/31/24 19:04 Respiratory Rate 16 12/31/24 19:04 Blood Pressure 123/67 12/31/24 19:04 Pulse Oximetry 94 L 12/31/24 19:04 Medical Decision Making MDM Narrative Medical decision making narrative: BUN was 24, creatinine 0.87, Hgb 11.3. The patient presented tachycardic. HR improved with IV fluids. CT head, chest x-ray, and urinalysis were pending. Care was resumed to Dr. Vidal. See her dictation for further evaluation and treatment. Medical Records Medical records reviewed: Yes I reviewed the patient's medical records Lab Data Lab results reviewed: Yes I reviewed the patient's lab results Labs: Lab Results 12/31/24 Range/Units 19:32 WBC 6.8 (4.0-11.0) 10^3/uL RBC 3.84 L (4.20-5.40) 10^6/uL Hgb 11.3 L (12.0-16.0) g/dL Hct 36.7 (36.0-48.0) % MCV 95.6 (81.0-99.0) fL MCH 29.4 (26.7-34.0) pg MCHC 30.8 (29.9-35.2) g/dL RDW 14.4 (11.0-15.0) % Plt Count 308 (150-450) 10^3/uL MPV 10.3 (9.5-13.5) fL Neut % (Auto) 71.8 (43.0-75.0) % Lymph % (Auto) 16.6 L (20.5-60.0) % Howell % (Auto) 8.7 (1.7-12.0) % Eos % (Auto) 1.3 (0.9-7.0) % Baso % (Auto) 1.3 (0.2-2.0) % Neut # (Auto) 4.8 (1.4-6.5) 10^3/uL Lymph # (Auto) 1.1 L (1.2-3.8) 10^3/uL Howell # (Auto) 0.6 (0.3-0.8) 10^3/uL Eos # (Auto) 0.1 (0.0-0.7) 10^3/uL Baso # (Auto) 0.1 (0.0-0.1) 10^3/uL Abs Immat Gran (auto) 0.02 (0.00-0.03) 10^3/uL Imm/Tot Granulo (auto) 0.3 (0.0-0.5) % Sodium 145 (136-145) mmol/L Potassium 4.0 (3.5-5.1) mmol/L Chloride 108 H (98-107) mmol/L Carbon Dioxide 24.4 (21.0-32.0) mmol/L Anion Gap 16.6 BUN 24.0 H (7.0-18.0) mg/dL Creatinine 0.87 (0.55-1.02) mg/dL Est GFR ( Amer) >60 (>=60 mL/min/1.73m^2) Est GFR (Non-Af Amer) >60 (>=60 mL/min/1.73m^2) BUN/Creatinine Ratio 27.6 Glucose 103 (74-106) mg/dL Calcium 9.0 (8.5-10.1) mg/dL Magnesium 1.9 (1.8-2.4) mg/dL Total Bilirubin 0.5 (0.2-1.0) mg/dL Direct Bilirubin 0.1 (0.0-0.2) mg/dL AST 10 L (15-37) U/L ALT 14 (14-59) U/L Alkaline Phosphatase 104 (46-116) U/L Troponin I High Sens 7.4 (4.0-51.3) pg/mL Total Protein 6.7 (6.4-8.2) g/dL Albumin 3.1 L (3.4-5.0) g/dL Globulin 3.6 g/dL Albumin/Globulin Ratio 0.9 ECG Data Attestation: ?I have reviewed the pertinent ECG results. (EKG was reviewed by the attending physician. It showed sinus tachycardia at a rate of 105. No STEMI. CT interval 116 ms.) Interpretation: Measurements Intervals Bird In [place] Rate: 105 P: 39 CT: 116 QRS: 5 QRSD: 78 T: 10 QT: 336 QTc: 397 Interpretive Statements 1120 Sinus tachycardia [address] interval 9150 abnormal ECG No previous ECG available for comparison Discharge Plan Discharge Chief Complaint: Weakness Clinical Impression: Intermittent lightheadedness Prescriptions / Home Meds: No Action clonazepam 0.5 mg tablet 0.5 mg PO QPM venlafaxine 150 mg capsule,extended release 24hr 150 mg PO DAILY trazodone 100 mg tablet 100 mg PO QPM buspirone 15 mg tablet 22.5 mg PO BID clonidine HCl 0.1 mg tablet 0.1 mg PO .once a day sucralfate 1 gram Tablet 1 g PO ACHS Qty: 120 0RF pantoprazole 40 mg tablet,delayed release (DR/EC) 40 mg PO BID Qty: 60 0RF Print Language: Albanian Referrals: Shalom Hayward DO [Primary Care Provider, Internal Medicine] - 1 week
[2024-12-31 19:47] LABS: Basophils Absolute Auto 0.1 10^3/uL (0.0-0.1); Basophils Percent Auto 1.3 % (0.2-2.0); Eosinophils Absolute Auto 0.1 10^3/uL (0.0-0.7); Eosinophils Percent Auto 1.3 % (0.9-7.0); Hematocrit 36.7 % (36.0-48.0); Hemoglobin 11.3 g/dL (12.0-16.0); Immature Granulocytes Abs Auto 0.02 10^3/uL (0.00-0.03); Immature Granulocytes Pct Auto 0.3 % (0.0-0.5); Lymphocytes Absolute Auto 1.1 10^3/uL (1.2-3.8); Lymphocytes Percent Auto 16.6 % (20.5-60.0); Mean Corpuscular HGB Conc 30.8 g/dL (29.9-35.2); Mean Corpuscular Hemoglobin 29.4 pg (26.7-34.0); Mean Corpuscular Volume 95.6 fL (81.0-99.0); Mean Platelet Volume 10.3 fL (9.5-13.5); Monocytes Absolute Auto 0.6 10^3/uL (0.3-0.8); Monocytes Percent Auto 8.7 % (1.7-12.0); Neutrophils Absolute Auto 4.8 10^3/uL (1.4-6.5); Neutrophils Percent Auto 71.8 % (43.0-75.0); Platelet Count 308 10^3/uL (150-450); Red Blood Count 3.84 10^6/uL (4.20-5.40); Red Cell Distribution Width 14.4 % (11.0-15.0); White Blood Count 6.8 10^3/uL (4.0-11.0)
[2024-12-31 19:57] LABS: Alanine Aminotransferase 14 U/L (14-59); Albumin Globulin Ratio 0.9; Albumin Level 3.1 g/dL (3.4-5.0); Alkaline Phosphatase 104 U/L (46-116); Anion Gap 16.6; Aspartate Amino Transferase 10 U/L (15-37); BUN Creatinine Ratio 27.6; Bilirubin Direct 0.1 mg/dL (0.0-0.2); Bilirubin Total 0.5 mg/dL (0.2-1.0); Carbon Dioxide 24.4 mmol/L (21.0-32.0); Chloride 108 mmol/L (98-107); Estimated GFR (African America >60 (>=60 mL/min/1.73m^2); Estimated GFR (Non-African Ame >60 (>=60 mL/min/1.73m^2); Globulin 3.6 g/dL; Glucose 103 mg/dL (74-106); Magnesium 1.9 mg/dL (1.8-2.4); Sodium 145 mmol/L (136-145); Total Protein 6.7 g/dL (6.4-8.2); Troponin I High Sensitivity 7.4 pg/mL (4.0-51.3)
[2024-12-31] MEDS: 0.9 % SODIUM CHLORIDE 1,000 ML 1000 ML IV (21:20)
--- NOTE | 2024-12-31 22:06 | PC.NURSE ---
Pt urinated twice--both times, she was unable to capture a specimen.
[2024-12-31 22:43] LABS: Bilirubin Urine NEGATIVE (NEGATIVE); Blood Urine TRACE-I (NEGATIVE); Color Urine YELLOW (YELLOW); Glucose Urine UA NEGATIVE (NEGATIVE); Ketones Urine TRACE mg/dL (NEGATIVE); Leukocyte Esterase Urine TRACE (NEGATIVE); Nitrite Urine NEGATIVE (NEGATIVE); Protein Urine NEGATIVE (NEG/TRACE); Specific Gravity Urine >=1.030 (1.005-1.025); Urobilinogen Urine 0.2 EU/dL (0.2-1.0); pH Urine 5.5 (5.0-9.0)
[2024-12-31 22:51] LABS: Urine Microscopic Indicated YES
[2024-12-31 22:52] LABS: Clarity Urine SLIGHTLY CLOUDY (CLEAR)
[2024-12-31 22:55] LABS: Bacteria Urine TRACE #/HPF (NONE SEEN); Cast Seen? SEEN #/LPF (NONE SEEN); Crystals Seen? None Seen #/HPF (None Seen); Hyaline Casts Urine MODERATE; Mucus Urine SMALL (NONE SEEN); RBC Urine 0-2 #/HPF (0-2); Squamous Epithelial Cell Urine MODERATE #/LPF (NONE/RARE); Urine Culture Indicated YES-FRMC
--- NOTE | 2025-01-01 00:08 | ED.GENADUL1 ---
HPI HPI - General Adult General Chief complaint: Weakness Stated complaint: dizzy, weakness Time Seen by Provider: 12/31/24 19:21 Source: patient Mode of arrival: walk-in Limitations: no limitations History of Present Illness HPI narrative: The patient is a 74-year-old female who was signed out to me by our physician certified pharmacist assistant 9:30 PM. The patient has been having intermittent head pressure, tingling lips, and lightheadedness since Saturday, 4 days ago. The patient stated that she feels when I talk with her tired and slightly nauseated because she feels thirsty. She also states that she has burning with urination and then it became frequent. The patient had a cough 3 weeks ago and finished her antibiotics about 2 weeks ago. But she is not having any cough, cold, flulike symptoms. Patient at this time will be treated for presumptive urinary tract infection given her symptoms and unequivocal urine assessment. Patient does have a history of iron deficient anemia but all of her secondary signs and the CBC actually suggest that the patient is doing well. She is due to follow-up with her doctor for that in February. Diagnosis: Urinary tract infection Dehydration Lightheaded Related Data Home Medications ?Medication ?Instructions ?Recorded ?Confirmed buspirone 15 mg tablet 22.5 mg PO BID 10/21/23 12/31/24 clonazepam 0.5 mg tablet 0.5 mg PO QPM 10/21/23 12/31/24 clonidine HCl 0.1 mg tablet 0.1 mg PO .once a day 10/21/23 12/31/24 trazodone 100 mg tablet 100 mg PO QPM 10/21/23 12/31/24 venlafaxine 150 mg 150 mg PO DAILY 10/21/23 12/31/24 capsule,extended release 24 hr Previous Rx's ?Medication ?Instructions ?Recorded pantoprazole 40 mg tablet,delayed 40 mg PO BID #60 tabs 10/22/23 release sucralfate 1 gram tablet 1 g PO ACHS #120 tabs 10/22/23 Allergies Allergy/AdvReac Type Severity Reaction Status Date / Time No Known Drug Allergies Allergy Verified 12/31/24 19:01 Opioid HPI Opioid Management Most Recent Opioid Data: Last Pain Scale 3 10/22/23, 11:00 Last ORT Total Score 4 10/21/23, 08:42 Last ORT Risk Category Moderate Risk 10/21/23, 08:42 [facility] Medical History (Updated 12/31/24 @ 21:42 by Luzma Paula) Chronic erosive gastritis ?K29.40 - Chronic atrophic gastritis without bleeding (ICD-10) History of peptic ulcer disease ?Z87.11 - Personal history of peptic ulcer disease (ICD-10) Obesity due to excess calories ?E66.09 - Other obesity due to excess calories (ICD-10) Nondependent alcohol abuse, continuous drinking behavior ?F10.10 - Alcohol abuse, uncomplicated (ICD-10) Benign essential hypertension ?I10 - Essential (primary) hypertension (ICD-10) Hiatal hernia with GERD ?K44.9 - Diaphragmatic hernia without obstruction or gangrene (ICD-10) ?K21.9 - Gastro-esophageal reflux disease without esophagitis (ICD-10) Iron deficiency anemia due to chronic blood loss ?D50.0 - Iron deficiency anemia secondary to blood loss (chronic) (ICD-10) Peptic ulcer disease with hemorrhage ?K27.4 - Chronic or unspecified peptic ulcer, site unspecified, with hemorrhage (ICD-10) FHx: cholecystectomy ?Z83.79 - Family history of other diseases of the digestive system (ICD-10) GI bleed ?K92.2 - Gastrointestinal hemorrhage, unspecified (ICD-10) Iron deficiency anemia ?D50.9 - Iron deficiency anemia, unspecified (ICD-10) Surgical History H/O: hysterectomy ?Z90.710 - Acquired absence of both cervix and uterus (ICD-10) Social History Within the past year, how often did you have a drink containing alcohol: 4 or more times a week Within the past year, how many standard drinks containing alcohol did you have on a typical day: 5 or 6 Within the past year, how often did you have six or more drinks on one occasion: weekly Total score: 7 Score interpretation: A score of 3 or more indicates drinking is likely to affect patient's safety. 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 Known occupational exposures/hazards: No Highest level of school completed/degree received: high school graduate Little interest or pleasure in doing things: not at all Feeling down, depressed, or hopeless: not at all Exam Constitutional Vital Signs, click to edit/add: Last Vital Signs Temp 98.4 F 12/31/24 19:04 Pulse 111 H 12/31/24 19:04 Resp 16 12/31/24 19:04 BP 123/67 12/31/24 19:04 Pulse Ox 94 L 12/31/24 19:04 Course Vital Signs Vital signs: Vital Signs Temperature 98.4 F 12/31/24 19:04 Pulse Rate 111 H 12/31/24 19:04 Respiratory Rate 16 12/31/24 19:04 Blood Pressure 123/67 12/31/24 19:04 Pulse Oximetry 94 L 12/31/24 19:04 Temperature 98.4 F 12/31/24 19:04 Pulse Rate 111 H 12/31/24 19:04 Respiratory Rate 16 12/31/24 19:04 Blood Pressure 123/67 12/31/24 19:04 Pulse Oximetry 94 L 12/31/24 19:04 Medical Decision Making Lab Data Labs: Lab Results 12/31/24 12/31/24 Range/Units 19:32 22:35 WBC 6.8 (4.0-11.0) 10^3/uL RBC 3.84 L (4.20-5.40) 10^6/uL Hgb 11.3 L (12.0-16.0) g/dL Hct 36.7 (36.0-48.0) % MCV 95.6 (81.0-99.0) fL MCH 29.4 (26.7-34.0) pg MCHC 30.8 (29.9-35.2) g/dL RDW 14.4 (11.0-15.0) % Plt Count 308 (150-450) 10^3/uL MPV 10.3 (9.5-13.5) fL Neut % (Auto) 71.8 (43.0-75.0) % Lymph % (Auto) 16.6 L (20.5-60.0) % Guthrie % (Auto) 8.7 (1.7-12.0) % Eos % (Auto) 1.3 (0.9-7.0) % Baso % (Auto) 1.3 (0.2-2.0) % Neut # (Auto) 4.8 (1.4-6.5) 10^3/uL Lymph # (Auto) 1.1 L (1.2-3.8) 10^3/uL Guthrie # (Auto) 0.6 (0.3-0.8) 10^3/uL Eos # (Auto) 0.1 (0.0-0.7) 10^3/uL Baso # (Auto) 0.1 (0.0-0.1) 10^3/uL Abs Immat Gran (auto) 0.02 (0.00-0.03) 10^3/uL Imm/Tot Granulo (auto) 0.3 (0.0-0.5) % Sodium 145 (136-145) mmol/L Potassium 4.0 (3.5-5.1) mmol/L Chloride 108 H (98-107) mmol/L Carbon Dioxide 24.4 (21.0-32.0) mmol/L Anion Gap 16.6 BUN 24.0 H (7.0-18.0) mg/dL Creatinine 0.87 (0.55-1.02) mg/dL Est GFR ( Amer) >60 (>=60 mL/min/1.73m^2) Est GFR (Non-Af Amer) >60 (>=60 mL/min/1.73m^2) BUN/Creatinine Ratio 27.6 Glucose 103 (74-106) mg/dL Calcium 9.0 (8.5-10.1) mg/dL Magnesium 1.9 (1.8-2.4) mg/dL Total Bilirubin 0.5 (0.2-1.0) mg/dL Direct Bilirubin 0.1 (0.0-0.2) mg/dL AST 10 L (15-37) U/L ALT 14 (14-59) U/L Alkaline Phosphatase 104 (46-116) U/L Troponin I High Sens 7.4 (4.0-51.3) pg/mL Total Protein 6.7 (6.4-8.2) g/dL Albumin 3.1 L (3.4-5.0) g/dL Globulin 3.6 g/dL Albumin/Globulin Ratio 0.9 Urine Color Yellow (YELLOW) Urine Clarity Slightly cloudy A (CLEAR) Urine pH 5.5 (5.0-9.0) Ur Specific Argyle >=1.030 A (1.005-1.025) Urine Protein Negative (NEG/TRACE) mg/dL Urine Glucose (UA) Negative (NEGATIVE) mg/dL Urine Ketones Trace A (NEGATIVE) mg/dL Urine Occult Blood Trace-i (NEGATIVE) Urine Nitrite Negative (NEGATIVE) Urine Bilirubin Negative (NEGATIVE) Urine Urobilinogen 0.2 (0.2-1.0) EU/dL Ur Leukocyte Esterase Trace A (NEGATIVE) Urine RBC 0-2 (0-2) #/HPF Urine WBC 5-10 A (NONE SEEN) #/HPF Ur Squamous Epith Cells Moderate A (NONE/RARE) #/LPF Urine Crystals None seen (None Seen) #/HPF Urine Bacteria Trace A (NONE SEEN) #/HPF Urine Casts Seen A (NONE SEEN) #/LPF Hyaline Casts Moderate Urine Mucus Small A (NONE SEEN) Ur Culture Indicated? Yes-[facility] Discharge Plan Discharge Chief Complaint: Weakness Clinical Impression: Intermittent lightheadedness Prescriptions / Home Meds: No Action clonazepam 0.5 mg tablet 0.5 mg PO QPM venlafaxine 150 mg capsule,extended release 24hr 150 mg PO DAILY trazodone 100 mg tablet 100 mg PO QPM buspirone 15 mg tablet 22.5 mg PO BID clonidine HCl 0.1 mg tablet 0.1 mg PO .once a day sucralfate 1 gram Tablet 1 g PO ACHS Qty: 120 0RF pantoprazole 40 mg tablet,delayed release (DR/EC) 40 mg PO BID Qty: 60 0RF Print Language: Bulgarian Referrals: Shalom Hayward DO [Primary Care Provider, Internal Medicine] - 1 week
[2025-01-01] MEDS: CEPHALEXIN 500 MG CAPSULE PO (00:20)
== END 2025-01-01 00:28 | disposition home or self-care (01) ==
PROVIDERS: Nurse Practitioner Family; Emergency Provider Emergency Medicine; PCP Internal Medicine
DX: R42 Dizziness and giddiness (principal); R53.1 Weakness; R51.9 Headache, unspecified; R20.2 Paresthesia of skin; R30.0 Dysuria; R35.0 Frequency of micturition
CPT/HCPCS: 36415; 70450; 71045; 80048; 80076; 81001; 83735; 84484; 85025; 87086; 93005; 99285

== ENCOUNTER 2025-02-08 13:32 | Outpatient (OUT) | payer MEDICARE, SELFPAY ==
--- OUTSIDE RECORDS SUMMARY | 2024-12-31 22:35 | XMS_ITS ---
Author Name Auto Generated Organization [facility] Care Team Providers Care Polo Coach Name Role Phone Pedro Parra Admitting Unavailable Pedro Parra Attending Unavailable Taina Toussaint Attending Unavailable Ricky Benson Benjamin Primary Care Unavailable Taina Toussaint Admitting Unavailable PROBLEMS DATE TYPE CONDITION / CODE ATTENDING STATUS MIR E 11/19/2024 Unknown Other iron defic iency anemias / D50.8(ICD-10) Taina Toussaint Active [facility] PROCEDURES No Procedure Records Found RESULTS URINE CULTURE Observed: 12/31/2024 10:35 PM Status: F Source: [facility] 20,000 colonies/ml mixed bacterial skin contaminants 2 Days PERFORMED BY: [place] [address] PATHOLOGIST [employer] SAMANTHA HOPE M.D. Performed By: #### [facility] #### [address] ALLERGIES DATE TYPE / CODE NAME / CODE REACTION SEVERITY SOURCE 12/08/2024 Drug Allergy/[id number] (SNOMED CT) No Known Allergies/[id number](RXNORM) Unknown [facility] ENCOUNTERS ADMIT/DISCHARGE ACCOUNT NUMBER ADMITTING ENCOUNTER CLASS LOCATION SOURCE 12/31/2024/ 5 [id number] [facility] 11/19/2024 [id number] Taina Toussaint [facility] PAYERS ENCOUNTER GUARANTOR PAYER SUBSCRIBER SOURCE 12/31/2024 Darlingmaur[address]ima [address] [address]Ydf: () Primary Insurance:Self PayPolicy Number: Effective Date:2024-12-31 NOT GIVENUNK [facility] 11/19/2024 [address] [place] [address]Tbn: () Primary Insurance:MedicarePol icy Number: [id number] Date:2019-10-16 Tu Chan: [id number] [place] [address]Sio: () [facility] 11/19/2024 Secondary Insurance:[facility] Health ClaimsPolicy Number: [id number] Date:2019-10-16 Tu Chan: [id number] [place] [address]Whf: () [facility] 11/19/2024 Tertiary Insurance:Self PayPolicy Number: Effective Date:2023-11-14 NOT GIVENUNK [facility]
--- OUTSIDE RECORDS SUMMARY | 2025-02-08 13:37 | XMS_ITS | Clinical Summary ---
Author Organization [employer] [facility] tem Address [id number] [address] [place] [address] Care Team Providers Care Fisheries Inspector Name Role Phone Shalom Hayward Primary Care Provider [phone] Medications omeprazole (PriLOSEC) 40 mg capsule Take 1 capsule (40 mg total) by mouth in the morning and 1 capsule (40 mg total) before bedtime. 60 capsule 1 11/06/2023 Active Social History Tobacco Use Types Packs/Day Years Used Date Smoking Tobacco: Never Assessed Childcare Answer Date Recorded Childcare Unknown 01/14/2019 Employment Answer Date Recorded Employment Unknown 01/14/2019 Comments Unknown Sex and Gender Information Value Date Recorded Sex Assigned at Not on file Legal Sex Female 12:54 PM EST Gender Identity Not on file Sexual Orientation Not on file Plan of Treatment Health Maintenance Due Date Last Done Comments Depression Screening 1961 Tobacco Screening 1961 DTaP,Tdap and Td Vaccines (1 - Tdap) 1968 Zoster (Shingles) Vaccine (1 of 2) 10/31/1999 Fall Risk Screening 2014 Influenza Vaccine 04/05/2025 Medical Devices Not on file Insurance MEDICARE Care Teams Fisheries Inspector Relationship Specialty Start Date End Date Shalom Hayward DO [facility] [place] [address] PCP - General Internal Medicine 10/23/23
--- OUTSIDE RECORDS SUMMARY | 2025-02-08 13:37 | XMS_ITS | Clinical Summary ---
Author Organization [facility] Address [address] [place] [address] Care Team Providers Care Zoning Engineer Name Role Phone Unavailable Primary Care Provider Unavailabl e Social History Tobacco Use Types Packs/Day Years Used Date Smoking Tobacco: Never Assessed Comments Unknown Sex and Gender Information Value Date Recorded Sex Assigned at Not on file Legal Sex Female 7:35 PM EDT Gender Identity Not on file Sexual Orientation Not on file Plan of Treatment Not on file Insurance MEDICARE [facility]
--- OUTSIDE RECORDS SUMMARY | 2025-02-08 13:37 | XMS_ITS | Encounter Summary ---
Author Organization [facility] tem Address [id number] [address] [place] [address] Care Team Providers Care Electronics Research Engineer Name Role Phone Shalom Hayward DO Primary Care Provider [phone] Reason for Visit * Reason Comments Med Refill Encounter Details Date Type Department Care Team (Late st Contact Info) Description 01/08/2024 Refill [facility] [address] [place] [id number] Hailee Preston, COLOR ARTIST-[facility] [address] [place], [place] [id number] Social History Tobacco Use Types Packs/Day Years Used Date Smoking Tobacco: Never Assessed Childcare Answer Date Recorded Childcare Unknown 01/14/2019 Employment Answer Date Recorded Employment Unknown 01/14/2019 Comments Unknown Sex and Gender Information Value Date Recorded Sex Assigned at Not on file Legal Sex Female 12:54 PM EST Gender Identity Not on file Sexual Orientation Not on file documented as of this encounter Plan of Treatment Not on file documented as of this encounter Visit Diagnoses Not on filedocumented in this encounter Care Teams Electronics Research Engineer Relationship Specialty Start Date End Date Shalom Hayward DO [address] [place] [address] PCP - General Internal Medicine 10/23/23 documented as of this encounter
--- OUTSIDE RECORDS SUMMARY | 2025-02-08 13:37 | XMS_ITS | Encounter Summary ---
Author Organization [facility] Address [id number] [address] [place] [address] Care Team Providers Care Food Safety Field Specialist Name Role Phone Shalom Hayward DO Primary Care Provider [phone] Reason for Visit * Reason Comments Med Refill Encounter Details Date Type Department Care Team (Late st Contact Info) Description 02/05/2024 Refill [facility] [address] [place] [phone] Hailee Preston, TRANSPORTATION DRIVER-[facility] [address] [place], [place] [id number] Social History Tobacco Use Types Packs/Day Years [...] on filedocumented in this encounter Care Teams Food Safety Field Specialist Relationship Specialty Start Date End Date Shalom Hayward DO [address] [place] [address] PCP - General Internal Medicine 10/23/23 documented as of this encounter
--- OUTSIDE RECORDS SUMMARY | 2025-02-08 13:37 | XMS_ITS | Clinical Summary ---
Author Organization [facility] Address [address] [facility] [place] [address] Phone Care Team Providers Care Business Line Manager Name Role Phone Unavailable Primary Care Provider Unavailabl e Social History Tobacco Use Types Packs/Day Years Used Date Smoking Tobacco: Never Assessed Comments Unknown Sex and Gender Information Value Date Recorded Sex Assigned at Not on file Legal Sex Female 7:12 AM EST Gender Identity Not on file Sexual Orientation Not on file Plan of Treatment Not on file
[2025-02-08 14:49] LABS: Iron 120.0 ug/dL (50.0-170.0); Percent Iron Saturation 30.0 %; Total Iron Binding Capacity 400.0 ug/dL (250.0-450.0)
[2025-02-08 15:03] LABS: Ferritin 16.0 ng/mL (8.0-252.0); Folate 8.60 ng/mL (8.60-58.90)
[2025-02-09 04:08] LABS: Vitamin B12 >2000 pg/mL (232-1245)
== END 2025-02-08 13:33 | disposition home or self-care (01) ==
PROVIDERS: PCP Internal Medicine
DX: D51.0 Vitamin B12 deficiency anemia due to intrinsic factor deficiency (principal); D50.0 Iron deficiency anemia secondary to blood loss (chronic)
CPT/HCPCS: 36415; 82607; 82728; 82746; 83540; 83550; 83921

== ENCOUNTER 2025-02-24 12:49 | Outpatient (OUT) | payer MEDICARE, SELFPAY ==
--- OUTSIDE RECORDS SUMMARY | 2025-02-24 12:51 | XMS_ITS | Encounter Summary ---
Author Organization [facility] Address [id number] [address] [place] [address] Care Team Providers Care Terrazzo Worker Apprentice Name Role Phone Shalom Hayward DO Primary Care Provider [phone] Reason for Visit * Reason Comments Med Refill Encounter Details Date Type Department Care Team (Late st Contact Info) Description 02/05/2024 Refill [facility] [address] [place] [phone] Hailee Preston, MED ADMIN-[facility] [address] [place], [place] [id number] Social History Tobacco Use Types Packs/Day Years [...] on filedocumented in this encounter Care Teams Terrazzo Worker Apprentice Relationship Specialty Start Date End Date Shalom Hayward DO [address] [place] [address] PCP - General Internal Medicine 10/23/23 documented as of this encounter
--- OUTSIDE RECORDS SUMMARY | 2025-02-24 12:51 | XMS_ITS | Encounter Summary ---
Author Organization [facility] Address [address] [place] [address] Care Team Providers Care Automobile Taillight Assembler Name Role Phone Unavailable Primary Care Provider Unavailabl e Encounter Details Date Type Department Care Team (Late st Contact Info) Description 02/11/2025 External Result Encounter [facility] Unsolicited Shiela Chan, THROW OUT CLERK [address] [place] [address] Social History Tobacco Use Types Packs/Day Years Used Date Smoking Tobacco: Never Assessed Comments Unknown Sex and Gender Information Value Date Recorded Sex Assigned at Not on file Legal Sex Female 7:35 PM EDT Gender Identity Not on file Sexual Orientation Not on file documented as of this encounter Plan of Treatment Not on file documented as of this encounter Procedures Procedure Name Priority Date/Time Associated Diagnosis Comments CBC WITH AUTO DIFFERENTIAL STAT 02/11/2025 12:38 PM EDT documented in this encounter Results * (ABNORMAL) CBC auto differential (02/11/2025 12:38 PM EDT) WBC 4.8 3.8 - 11.6 [CFU]/mL 02/11/2025 12:56 PM EDT [facility] UNCORRECTED WHITE BLOOD COUNT 4.8 3.8 - 11.6 10*3/uL 02/11/2025 12:56 PM EDT [facility] RBC 3.35(L) 3.60 - 5.00 10*6/uL 02/11/2025 12:56 PM EDT [facility] HEMOGLOBIN 8.9(L) 11.8 - 15.4 g/dL 02/11/2025 12:56 PM EDT [facility] HEMATOCRIT 29.5(L) 34.0 - 46.4 % 02/11/2025 12:56 PM EDT [facility] MCV 88.2 80 - 100 fL 02/11/2025 12:56 PM EDT [facility] MCH 26.6 24.7 - 34.3 pg 02/11/2025 12:56 PM EDT [facility] MCHC 30.2(L) 32.0 - 35.0 g/dL 02/11/2025 12:56 PM EDT [facility] RED CELL DISTRIBUTION WIDTH, RDW 14.8 11.9 - 15.3 % 02/11/2025 12:56 PM EDT [facility] PLATELET COUNT 316 150 - 450 10*3/uL 02/11/2025 12:56 PM EDT [facility] MEAN PLATELET VOLUME, MPV 8.3 6.3 - 10.7 fL 02/11/2025 12:56 PM EDT [facility] NEUTROPHILS, % 73.8 . % 02/11/2025 12:56 PM EDT [facility] LYMPHOCYTES, % 14.4 . % 02/11/2025 12:56 PM EDT [facility] MONOCYTE/MACROPHA GE, % 6.9 . % 02/11/2025 12:56 PM EDT [facility] EOSINOPHILS, % 2.1 . % 02/11/2025 12:56 PM EDT [facility] BASOPHILS, % 2.8 . % 02/11/2025 12:56 PM EDT [facility] NRBC 0.1 0 - 0.5 /100{WBC} 02/11/2025 12:56 PM EDT [facility] NEUTROPHILS 3.6 1.8 - 7.7 10*3/uL 02/11/2025 12:56 PM EDT [facility] LYMPHOCYTES 0.7(L) 1.00 - 4.8 10*3/uL 02/11/2025 12:56 PM EDT [facility] MONOCYTES 0.3 0.0 - 0.8 10*3/uL 02/11/2025 12:56 PM EDT [facility] EOSINOPHILS 0.1 0.0 - 0.45 10*3/uL 02/11/2025 12:56 PM EDT [facility] BASOPHILS 0.1 0.0 - 0.2 10*3/uL 02/11/2025 12:56 PM EDT [facility] Blood (Blood) 02/11/2025 12: 38 PM EDT 02/11/2025 12:38 PM EDT us Shiela Chan THROW OUT CLERK LAB BLOOD ORDERABLES Final Re sult Performing Organization Address City/State/[facility] Co de Phone Number [facility] [address] [place] [address], [facility] [address] [place] [address] documented in this encounter Visit Diagnoses Not on filedocumented in this encounter
--- OUTSIDE RECORDS SUMMARY | 2025-02-24 12:51 | XMS_ITS | Clinical Summary ---
Author Organization [employer] [facility] tem Address [id number] [address] [place] [address] Care Team Providers Care Executive Cyber Leader Name Role Phone Shalom Hayward Primary Care Provider [phone] Medications omeprazole (PriLOSEC) 40 mg capsule Take [...] Not on file Insurance MEDICARE Care Teams Executive Cyber Leader Relationship Specialty Start Date End Date Shalom Hayward DO [facility] [place] [address] PCP - General Internal Medicine 10/23/23
--- OUTSIDE RECORDS SUMMARY | 2025-02-24 12:51 | XMS_ITS | Clinical Summary ---
Author Organization [facility] Address [address] [place] [address] Care Team Providers Care Pinking Machine Operator Name Role Phone Unavailable Primary Care Provider Unavailabl e Encounters Date Type Department Care Team Description 02/11/2025 External Result Encounter [facility] External Department Unsolicited Shiela Chan NP 02/11/2025 External Result Encounter [facility] External Department Unsolicited Shiela Chan NP 02/08/2025 Clinisync Result Encounter [facility]S External Department Unsolicited Francesca Devries NP from Last 3 Months Social History Tobacco Use Types Packs/Day Years Used Date Smoking Tobacco: Never Assessed Comments Unknown Sex and Gender Information Value Date Recorded Sex Assigned at Not on file Legal Sex Female 7:35 PM EDT Gender Identity Not on file Sexual Orientation Not on file Plan of Treatment Not on file Procedures Procedure Name Priority Date/Time Associated Diagnosis Comments COMPREHENSIVE METABOLIC PANEL STAT 02/11/2025 12:38 PM EDT CBC WITH AUTO DIFFERENTIAL STAT 02/11/2025 12:38 PM EDT ALL METHYLMALONIC ACID Routine 1:48 PM EDT VITAMIN B12 Routine 02/08/2025 1:48 PM EDT ALL FOLIC ACID Routine 02/08/2025 1:48 PM EDT [facility] FERRITIN Routine 02/08/2025 1:48 PM EDT METRO IRON AND TIBC Routine 02/08/2025 1 :48 PM EDT from Last 3 Months Results * (ABNORMAL) CBC auto differential (02/11/2025 12:38 PM EDT) WBC 4.8 3.8 - 11.6 [CFU]/mL 02/11/2025 12:56 PM EDT [facility] UNCORRECTED WHITE BLOOD COUNT 4.8 3.8 - 11.6 10*3/uL 02/11/2025 12:56 PM EDT [facility] RBC 3.35(L) 3.60 - 5.00 10*6/uL 02/11/2025 12:56 PM EDT [facility] HEMOGLOBIN 8.9(L) 11.8 - 15.4 g/dL 02/11/2025 12:56 PM EDT [facility] HEMATOCRIT 29.5(L) 34.0 - 46.4 % 02/11/2025 12:56 PM EDT [facility] MCV 88.2 80 - 100 fL 02/11/2025 12:56 PM EDT [facility] MCH 26.6 24.7 - 34.3 pg 02/11/2025 12:56 PM EDT [facility] MCHC 30.2(L) 32.0 - 35.0 g/dL 02/11/2025 12:56 PM EDT [facility] RED CELL DISTRIBUTION WIDTH, RDW 14.8 11.9 - 15.3 % 02/11/2025 12:56 PM EDT [facility] PLATELET COUNT 316 150 - 450 10*3/uL 02/11/2025 12:56 PM EDT [facility] MEAN PLATELET VOLUME, MPV 8.3 6.3 - 10.7 fL 02/11/2025 12:56 PM EDT [facility] NEUTROPHILS, % 73.8 . % 02/11/2025 12:56 PM EDT [facility] LYMPHOCYTES, % 14.4 . % 02/11/2025 12:56 PM EDT [facility] MONOCYTE/MACROPHA GE, % 6.9 . % 02/11/2025 12:56 PM EDT [facility] EOSINOPHILS, % 2.1 . % 02/11/2025 12:56 PM EDT [facility] BASOPHILS, % 2.8 . % 02/11/2025 12:56 PM EDT [facility] NRBC 0.1 0 - 0.5 /100{WBC} 02/11/2025 12:56 PM EDT [facility] NEUTROPHILS 3.6 1.8 - 7.7 10*3/uL 02/11/2025 12:56 PM EDT [facility] LYMPHOCYTES 0.7(L) 1.00 - 4.8 10*3/uL 02/11/2025 12:56 PM EDT [facility] MONOCYTES 0.3 0.0 - 0.8 10*3/uL 02/11/2025 12:56 PM EDT [facility] EOSINOPHILS 0.1 0.0 - 0.45 10*3/uL 02/11/2025 12:56 PM EDT [facility] BASOPHILS 0.1 0.0 - 0.2 10*3/uL 02/11/2025 12:56 PM EDT [facility] Blood (Blood) 02/11/2025 12: 38 PM EDT 02/11/2025 12:38 PM EDT us Shiela Chan CARPET TECHNICIAN LAB BLOOD ORDERABLES Final Re sult [facility] [address] [place] [address], [facility] [address] [place] [address] * (ABNORMAL) Comprehensive metabolic panel (02/11/2025 12:38 PM EDT) Glucose 91 70 - 100 mg/dL 02/11/2025 1:16 PM EDT [facility] Comment: Random Glucose Reference Range is dependent on time and content of last meal. Glucose of more than 200 mg/dL in a nonstressed, ambulatory subject supports the diagnosis of Diabetes Mellitus. ADA recommended reference range BUN 15 7 - 25 mg/dL 02/11/2025 1:16 PM EDT [facility] CREATININE 0.74 0.60 - 1.20 mg/dL 02/11/2025 1:16 PM EDT [facility] ESTIMATED GFR >60.0 02/11/2025 1:16 PM EDT [facility] Sodium 141 136 - 145 mmol/L 02/11/2025 1:16 PM EDT [facility] Potassium, Bld 4.4 3.5 - 5.1 mmol/L 02/11/2025 1:16 PM EDT [facility] Chloride 110(H) 98 - 107 mmol/L 02/11/2025 1:16 PM EDT [facility] Carbon Dioxide 26.0 21.0 - 31.0 mmol/L 02/11/2025 1:16 PM EDT [facility] Anion Gap 9.4 6.0 - 15.0 02/11/2025 1:16 PM EDT [facility] Calcium 8.6 8.6 - 10.3 mg/dL 02/11/2025 1:16 PM EDT [facility] TOTAL PROTEIN 6.6 6.4 - 8.9 g/dL 02/11/2025 1:16 PM EDT [facility] ALBUMIN LEVEL 3.9 3.5 - 5.7 g/dL 02/11/2025 1:16 PM EDT [facility] GLOBULIN 2.7 g/dL 02/11/2025 1:16 PM EDT [facility] ALBUMIN/GLOBULIN RATIO 1.4 02/11/2025 1:16 PM EDT [facility] BILIRUBIN,TOTAL 0.6 0.3 - 1.0 mg/dL 02/11/2025 1:16 PM EDT [facility] ASPARTATE AMINO TRANSFERASE 14 13 - 39 U/L 02/11/2025 1:16 PM EDT [facility] ALANINE AMINOTRANSFERASE 10 7 - 52 U/L 02/11/2025 1:16 PM EDT [facility] ALKALINE PHOSPHATASE 94 34 - 104 U/L 02/11/2025 1:16 PM EDT [facility] CREATININE CLR CALC PHARMACY 77.57 02/11/2025 1:16 PM EDT [facility] Other Topography unknown / Unknown 02/11/2025 12:38 PM EDT 02/11/2025 12:38 PM EDT Shiela Chan NP LAB BLOOD ORDERABLES Final Re sult [facility] [address] [place] [address], [facility] [address] [place] [address] * (ABNORMAL) VITAMIN B12 (02/08/2025 1:48 PM EDT) VITAMIN B12 >2000(A) 232 - 1245 pg/mL [facility] Comment: Performed at: - [address] [id number] Supervisor [employer]: Janes Barrientos PhD, Phone: [phone] 02/08/2025 1:48 PM EDT 02/08/2025 1:54 PM EDT Narrative CL[facility]IS[facility] - 02/09/2025 4:08 AM EDT us Francesca Devries NP LAB BLOOD ORDERABLES Final Resul t Performing Organization Address City/[facility]/ZIP Co de Phone Number CL[facility]NC TB * METRO IRON AND TIBC (02/08/2025 1:48 PM EDT) [facility] IRON 120.0 50.0 - 170.0 ug/dL [facility] TOTAL IRON BINDING CAPACITY 400.0 250.0 - 450.0 ug/dL [facility] PERCENT IRON SATURATION 30.0 % [facility] 02/08/2025 1:48 PM EDT 02/08/2025 1:54 PM EDT Narrative [facility] - 02/08/2025 2:51 PM EDT us Francesca Devries NP CL[facility]IS[facility]NC Final Result [facility] TB * [facility] FERRITIN (02/08/2025 1:48 PM EDT) FERRITIN 16.0 8.0 - 252.0 ng/mL [facility] 02/08/2025 1:48 PM EDT 02/08/2025 1:54 PM EDT Narrative [facility] - 02/08/2025 3:05 PM EDT Francesca Devries NP CL[facility]IS[facility]NC Final Result Performing Organization Address City/[facility]/ZIP [facility] de [facility] Number [facility] * ALL METHYLMALONIC ACID (02/08/2025 1:48 PM EDT) METHYLMALONIC ACID, SERUM 291 0 - 378 nmol/L [facility] Comment: This test was developed and its performance characteristics determined by [facility]. It has not been cleared or approved by the Food and Drug Administration. Performed at: [address] [id number] Supervisor [employer]: Gregorio Kelsey MD, Phone: [phone] 02/08/2025 1:48 PM EDT 02/08/2025 1:54 PM EDT Narrative CLINISYNC - 02/12/2025 11:08 AM EDT Francesca Devries NP CL[facility]IS[facility]NC Final Result Performing Organization Address [facility] Co de Phone Number [facility] * ALL FOLIC ACID (02/08/2025 1:48 PM EDT) FOLATE 8.60 8.60 - 58.90 ng/mL [facility] 02/08/2025 1:48 PM EDT 02/08/2025 1:54 PM EDT Narrative CL[facility]ISYNC - 02/08/2025 3:05 PM EDT Francesca Devries NP CL[facility]NC Final Result Performing Organization Address [facility] Co de Phone Number [facility] from Last 3 [place] [phone] [employer]
--- OUTSIDE RECORDS SUMMARY | 2025-02-24 12:51 | XMS_ITS | Encounter Summary ---
Author Organization [facility] Address [address] [place] [address] Care Team Providers Care Coal Or Ore Controller Name Role Phone Unavailable Primary Care Provider Unavailabl e Encounter Details Date Type Department Care Team (Late st Contact Info) Description 02/11/2025 External Result Encounter [facility] External Department Unsolicited Shiela Chan, PINBALL MACHINE REPAIRER [address] [place] [address] Social History Tobacco Use Types [...] METABOLIC PANEL STAT 02/11/2025 12:38 PM EDT documented in this encounter Results * (ABNORMAL) Comprehensive metabolic panel (02/11/2025 12:38 PM EDT) Glucose 91 70 - 100 mg/dL 02/11/2025 1:16 PM EDT [facility] Comment: Random Glucose Reference Range is dependent on time and content of last meal. Glucose of more than 200 mg/dL in a nonstressed, ambulatory subject supports the diagnosis of Diabetes Mellitus. ADA recommended reference range BUN 15 7 - 25 mg/dL 02/11/2025 1:16 PM EDT [facility] CREATININE 0.74 0.60 - 1.20 mg/dL 02/11/2025 1:16 PM EDT [facility] ESTIMATED GFR >60.0 02/11/2025 1:16 PM EDT [facility] Sodium 141 136 - 145 mmol/L 02/11/2025 1:16 PM EDT [facility] Potassium, Bld 4.4 3.5 - 5.1 mmol/L 02/11/2025 1:16 PM EDT [facility] Chloride 110(H) 98 - 107 mmol/L 02/11/2025 1:16 PM EDT [facility] Carbon Dioxide 26.0 21.0 - 31.0 mmol/L 02/11/2025 1:16 PM EDT [facility] Anion Gap 9.4 6.0 - 15.0 02/11/2025 1:16 PM EDT [facility] Calcium 8.6 8.6 - 10.3 mg/dL 02/11/2025 1:16 PM EDT [facility] TOTAL PROTEIN 6.6 6.4 - 8.9 g/dL 02/11/2025 1:16 PM EDT [facility] ALBUMIN LEVEL 3.9 3.5 - 5.7 g/dL 02/11/2025 1:16 PM EDT [facility] GLOBULIN 2.7 g/dL 02/11/2025 1:16 PM EDT [facility] ALBUMIN/GLOBULIN RATIO 1.4 02/11/2025 1:16 PM EDT [facility] BILIRUBIN,TOTAL 0.6 0.3 - 1.0 mg/dL 02/11/2025 1:16 PM EDT [facility] ASPARTATE AMINO TRANSFERASE 14 13 - 39 U/L 02/11/2025 1:16 PM EDT [facility] ALANINE AMINOTRANSFERASE 10 7 - 52 U/L 02/11/2025 1:16 PM EDT [facility] ALKALINE PHOSPHATASE 94 34 - 104 U/L 02/11/2025 1:16 PM EDT [facility] CREATININE CLR CALC PHARMACY 77.57 02/11/2025 1:16 PM EDT [facility] Other Topography unknown / Unknown 02/11/2025 12:38 PM EDT 02/11/2025 12:38 PM EDT us Shiela Chan PINBALL MACHINE REPAIRER LAB BLOOD ORDERABLES Final Re sult [facility] [address] [facility] [place] [address], [facility] [address] [place] [address] documented in this encounter Visit Diagnoses Not on filedocumented in this encounter
--- OUTSIDE RECORDS SUMMARY | 2025-02-24 12:51 | XMS_ITS | Clinical Summary ---
Author Organization [facility] Address [address] [facility] [place] [address] Phone Care Team Providers Care Custom Decorating Consultant Name Role Phone Unavailable Primary Care Provider [...]
--- OUTSIDE RECORDS SUMMARY | 2025-02-24 12:51 | XMS_ITS | Encounter Summary ---
Author Organization [facility] Address [id number] [place] [address] Care Team Providers Care Executive Receptionist Name Role Phone Shalom Hayward DO Primary Care Provider [phone] Reason for Visit * Reason Comments Med Refill Encounter Details Date Type Department Care Team (Late st Contact Info) Description 01/08/2024 Refill [facility] [address] [place] [id number] Hailee Preston, VOCATIONAL SCHOOL TEACHER-[facility] [address] [place], [place] [id number] Social History Tobacco Use Types Packs/Day Years [...] on filedocumented in this encounter Care Teams Executive Receptionist Relationship Specialty Start Date End Date Shalom Hayward DO [address] [place] [address] PCP - General Internal Medicine 10/23/23 documented as of this encounter
--- NOTE | 2025-02-24 12:53 | MM_ITS ---
Patient Name: JANINE CONDE MR#: [id number] : 1950 Exam Date: 02/24/2025 Ordering Doctor: DR MIKE JONES D.O. RADIOLOGY REPORT PROCEDURE: MM TOMOSYNTHESIS SCREENING BI COMPARISON: MM TOMOSYNTHESIS SCREENING BI, 02/24/2024. MM TOMOSYNTHESIS SCREENING BI, 02/18/2023. MG MAMM SCREEN 3D MANJINDER CAD, 02/16/2022. MG MAMM MANJINDER SCRN W CAD DIG, 02/03/2015. INDICATIONS: Screening for malignant neoplasm Calculator Name NCI Breast Cancer Risk Assessment Tool 5 Year Breast Cancer Risk 1.20% Lifetime Breast Cancer Risk 2.50% Personal Breast Cancer No Personal Ovarian Cancer No Treatments None Family Cancers Brother with lymphoma cancer at age 70; Sister with lymphoma cancer at age 70. LOCATION: [facility] BREAST COMPOSITION: There are scattered areas of fibroglandular density. FINDINGS: DIAGNOSTIC CATEGORY 0--INCOMPLETE: NEED ADDITIONAL IMAGING EVALUATION. RIGHT BREAST: No significant suspicious finding. LEFT BREAST: Focal asymmetry upper outer aspect of the left breast, middle depth. RECOMMENDATIONS: ADDITIONAL MAMMOGRAPHIC VIEWS REQUIRED: LEFT BREAST - spot-compression/true lateral views, possible ultrasound recommended. PLEASE NOTE: A NORMAL MAMMOGRAM DOES NOT EXCLUDE THE POSSIBILITY OF BREAST CANCER. A CLINICALLY SUSPICIOUS PALPABLE LUMP SHOULD BE BIOPSIED. Dictated by: Elliott Preciado DO on 02/25/2025 at 16:26 Approved by: Elliott Preciado DO on 02/25/2025 at 16:28
== END 2025-02-24 12:50 | disposition home or self-care (01) ==
LOC: MAMMO 12:50
PROVIDERS: PCP Internal Medicine; Visit Provider Internal Medicine
DX: Z12.31 Encounter for screening mammogram for malignant neoplasm of breast (principal); Z80.7 Family history of other malignant neoplasms of lymphoid, hematopoietic and related tissues
CPT/HCPCS: 77063; 77067

== ENCOUNTER 2025-05-17 12:59 | Outpatient (OUT) | payer MEDICARE, SELFPAY ==
--- OUTSIDE RECORDS SUMMARY | 2025-05-17 13:08 | XMS_ITS | CCD ---
Author Organization [facility] Care Team Providers Care Enzyme Chemist Name Role Phone Dr. Taina Toussaint Attending Unavailable DO Shalom Jones Primary Care Provider MD Ricky Perdomo Referring Provider [phone] MD Taina Toussaint Attending Provider [phone] Shalom Jones Unavailable TING, DR TAINA Thomas Consulting Unavailable BALL, DR RAUSCH Primary Care Unavailable TING, DR TAINA Thomas Admitting Unavailable TING, DR TAINA Thomas Attending Unavailable BALL, DR RAUSCH Primary Care Unavailable TING, DR TAINA Thomas Admitting Unavailable TING, DR TAINA Thomas Attending Unavailable MISC, DR MAURICIO Consulting Unavailable DAMSCHRODERMELISSA Attending Unavailable DAMSCHRODER, MELISSA Consulting Unavailable DAMSCHRODMELISSA SELLERS Admitting Unavailable BALL, DR RAUSCH Primary Care Unavailable TING, DR TAINA Thomas Consulting Unavailable TING, DR TAINA Thomas Admitting Unavailable TING, DR TAINA Thomas Attending Unavailable BALL, DR RAUSCH Primary Care Unavailable DAMSCHMELISSA POWER Attending Unavailable BALL, DR RAUSCH Referring Unavailable BALL, DR RAUSCH Primary Care Unavailable MELISSA LOUIS Admitting Unavailable BALL, DR RAUSCH Primary Care Unavailable BALL, DR RAUSCH Admitting Unavailable BALL, DR RAUSCH Attending Unavailable BALL, DR RAUSCH Consulting Unavailable BALL, DR RAUSCH Primary Care Unavailable TING, DR TAINA Thomas Consulting Unavailable TING, DR TAINA Thomas Admitting Unavailable TING, DR TAINA Thomas Attending Unavailable BALL, DR RAUSCH Admitting Unavailable BALL, DR RAUSCH Attending Unavailable BALL, DR RAUSCH Consulting Unavailable BALL, DR RAUSCH Primary Care Unavailable BALL, DR RAUSCH Admitting Unavailable BALL, DR RAUSCH Attending Unavailable BALL, DR RAUSCH Consulting Unavailable BALL, DR RAUSCH Primary Care Unavailable ZIEBER, DR MARGOT lEy Consulting Unavailable MISC, DR MAURICIO Attending Unavailable BALL, DR RAUSCH Primary Care Unavailable MISC, DR MAURICIO Consulting Unavailable MISC, DR MAURICIO Admitting Unavailable HOY ., DR MIMS Attending Unavailable PLACIDO ., DR MIMS Consulting Unavailable PLACIDO ., DR MIMS Admitting Unavailable KAREN, DR RAUSCH Primary Care Unavailable KATHERINE PARRA Consulting Unavailable DANISH ARMSTRONG Consulting Unavailable ROBIN HERNANDEZ Consulting Unavailable SARAI LUCAS Consulting Unavailable DO Shalom Jonse Primary Care Provider MD Ricky Perdomo Referring Provider MD Taina Toussaint Attending Provider DO Shalom Jones Primary Care Provider MD Ricky Perdomo Referring Provider [phone] MD Taina Toussaint Attending Provider Ricky Perdomo Unavailable [phone] DO Shalom Jones Primary Care Provider MD Ricky Perdomo Referring Provider MD Taina Toussaint Attending Provider MD Ricky Perdomo Attending Provider DO Shalom Jones Primary Care Provider MD Ricky Perdomo Attending Provider MD Ricky Perdomo Referring Provider [phone] MD Taina Toussaint Attending Provider DO Shalom Jones Primary Care Provider MD Ricky Perdomo Referring Provider MD Taina Toussaint Attending Provider DO Shalom Jones Primary Care Provider MD Ricky Perdomo Referring Provider MD Taina Toussaint Attending Provider DO Parish Mckeon Attending Provider DO Shalom Jones Primary Care Provider MD Ricky Perdomo Referring Provider SONIA Chan Attending Provider MD Ricky Perdomo Referring Provider SONIA Chan Attending Provider Ball, DO Rausch Primary Care Provider BallDO Rausch Primary Care Provider MD Ricky Perdomo Referring Provider Unav ailable SONIA Chan Attending Provider Shalom Jones DO Primary Care Provider Kelley ELIAS, Ricky Ely Referring Provider Unav Taina Mandujano MD Attending Provider Shalom Jones DO E Primary Care Provider Shalom Jones DO Primary Care Provider [phone] Kelley ELIAS, Ricky Ely Referring Provider Unav Taina Mandujano MD Attending Provider [phone] Shalom Jones DO Primary Care Provider [phone] Kelley ELIAS, Ricky Ely Referring Provider Unav Taina Mandujano MD Attending Provider Pedro Parra DO Attending Provider Unavailable Primary Care Provider Unavailabl Shalom Rodriguez DO Primary Care Provider [phone] Francesca Devries APRN Attending Provider [phone] Shalom Jones DO Attending Provider Nisa WHITAKER-CLuzma Attending Provider [phone] Manuela Torres CMA Attending Provider Unavaila Ricky Hanna MD Referring Provider Taina Rebolledo MD Attending Provider Shalom Jones DO Primary Care Provider Shalom Jones DO Attending Provider [phone] Francesca Devries APRN Attending Provider Ricky Perdomo MD Referring Provider Taina Rebolledo MD Attending Provider Pedro Parra Attending Unavailable Pedro Parra Admitting Unavailable Shalom Jones Admitting Unavailable Ball, Shalom Primary Care Unavailable Shalom Jones Attending Unavailable Taina oTussaint Admitting Unavailable Taina Toussaint Attending Unavailable Ricky Perdomo Referring Unavailabl e Shalom Jones Primary Care Unavailable Shalom Jones DO Primary Care Provider Shalom Jones DO Attending Provider Medications Current Medications Medication Drug Class(es) Dates Sig (Normalized) Sig (Original) busPIRone hydrochloride 5 mg oral tablet (20 sources) Start: 10-25-2023 take 3 tablets by mouth twice daily Buspirone 5 mg tablet Active 15 MG PO Twice daily October 25, 2023 9:37am Complies with drug therapy Start: 10-25-2023 take 15 mg by mouth [...] PO Twice daily as needed for anxiety 30 March 09, 2024 12:00am Complies with drug therapy Start: 10-29-2023 End: 11-12-2023 take 1 capsule [...] AND TAKE BY MOUTH TWICE A DAY Complies with drug therapy Start: 03-10-2024 End: 03-10-2024 Cholestyramine-Aspartame (Ch olestyramine [...] Tablet Active 0.5 MG PO Twice daily June 23, 2019 1:52pm Complies with drug therapy ferrous sulfate 325 mg oral tablet (20 sources) Start: 11-19-2024 take 1 tablet by mouth once daily Ferrous Sulfate 325 mg (65 mg iron) tablet Active 325 MG PO Daily November 19, 2024 12:00am Complies with drug therapy Start: 01-01-2020 End: 06-22-2021 take 1 tablet [...] MG PO Daily November 19, 2024 2:53pm Complies with drug therapy Start: 2023 End: 11-19-2024 Omeprazole 40 mg capsule,del ayed release(DR/EC) Discontinued 40 MG PO January 16, 2024 12:00am March 09, 2024 2:22pm Start: 01-01-2020 End: 06-22-2021 take 1 capsule by mouth once daily Omeprazole 20 mg capsule,delayed release(DR/EC) Discontinued 20 MG PO Daily January 01, 2020 12:00am June 22, 2021 7:20am Start: 06-23-2019 End: 10-20-2019 take 2 capsules by mouth once daily Omeprazole 20 mg Capsule,Delayed Release(Dr/Ec) Discontinued 40 MG PO Daily 60 June 23, 2019 1:00am October 20, 2019 2:58pm Start: 06-23-2019 End: 10-20-2019 take 40 mg [...] TAB PO Bedtime June 20, 2019 1:00am Complies with drug therapy vitamin b12 1 mg/ml injectable solution (9 sources) Vitamin B12 Start: 025 inject 1000 ug by intramuscular injection every month Cyanocobalamin (Vitamin B-12) 1,000 mcg/mL solution Active 1000 MCG IM every month November 19, 2024 12:00am Complies with drug therapy Vitamin D (7 sources) Vitamin D Active [...] 22, 2021 1:00am January 05, 2022 11:06am azithromycin 250 mg oral tablet (8 sources) Macrolide Antimicrobial Start: 12-08-2024 End: 01-13-2025 Azithromycin 250 mg tablet Discontinued 250 MG PO .COMPLEX 6 December 08, 2024 12:00am January 13, 2025 2:22pm 2 tabs on first day followed by 1 tab on days 2-5 B-12 - up to 1000 mcg (20 sources) Start: 08-27-2023 B-12 - up to 1000 mcg Aug, 1000 mcg Start: 07-26-2023 B-12 [...] 000 mcg Aug, 1000 mcg Bismuth Subcit D-Hlreoxwwz-Uqd (Pylera) 140-125-125 mg capsule (17 sources) Start: 11-06-2023 End: 01-16-2024 take 3 capsules by mouth once Bismuth Subcit I-Knawobcna-Ubc (Pylera) 140-125-125 mg capsule Discontinued 3 CAP [...] 3 capsules by mouth once Bismuth Subcit W-Xqdgrrxtr-Erl (Pylera) 140-125-125 mg capsule Active 3 CAP PO per package directions 120 November 06, 2023 12:00am bismuth subcitrate 140 mg / metroNIDAZOLE 125 mg / tetracycline hydrochloride 125 mg oral capsule (4 sources) Nitroimidazole Antimicrobial, Tetracycline-class Antimicrobial Start: 11-06-2023 End: 01-16-2024 take 3 capsules by mouth once Bismuth Subcit K-Jauauihmt-Rhk (Pylera) 140-125-125 mg capsule Discontinued 3 CAP PO per package directions 120 November 06, 2023 12:00am January 16, 2024 1:51pm cloNIDine hydrochloride 0.1 mg oral tablet (20 [...] six hours Omeprazole 20 mg Capsule,Delayed Release(Dr/Ec) (8 sources) Start: 06-23-2019 End: 10-20-2019 take 2 [...] twice daily Pantoprazole 40 mg tablet,delayed release (DR/EC) Discontinued 40 MG PO Twice daily 60 180 May 15, 2023 12:00am January 16, 2024 1:54pm take 1 tablet by deidra th every twenty-four hours Pantoprazole Sodium 40 MG 1 tablet Orall y Once a day Active sucralfate 1000 mg oral tablet (20 sources) Aluminum Complex Start: 10-29-2023 End: 01-16-2024 [...] Start: 06-20-2019 take 1 capsule by mo [facility] once daily Venlafaxine 150 mg Capsule,Extended Release 24hr Active 150 MG PO Daily June 20, 2019 1:00am Complies with drug therapy Effexor 150mg Ac tive Problems Active Problems Problem Classification Problem Date Documented Date Episodic/Chronic Abdominal hernia (20 sources) Hiatal hernia; Translations: [Diaphragmatic hernia without obstruction or gangrene] 01-01-2020 Episodic Abdominal pain (2 sources) Unspecified abdominal pain; Translations: [UNSPECIFIED ABDOMINAL PAIN] Onset: 3 Episodic Acute bronchitis (5 sources) Acute bronchitis due to other specified organisms; Translations: [Acute bronchitis] 12-08-2024 Episodic Acute posthemorrhagic anemia (20 sources) Acute [...] tract disease (1 source) Postcholecystectomy syndrome Episodic Cardiac dysrhythmias (19 sources) Tachycardia, unspecified; Translations: [Palpitations] Onset: 6 01-12-2025 Episodic Complications of surgical procedures or medical [...] deficiency] 10-25-2023 Episodic Deficiency and other anemia (20 sources) Vitamin B12 deficiency anemia due to [...] or abscess without bleeding] Chronic Esophageal disorders (20 sources) Gastro-esophageal reflux disease without esophagitis; Translations: [...] 01-01-2020 Episodic Other aftercare (2 sources) Other assisted (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; Translations: [OTH PENITENTIARY CURRENT DRUG THERAPY] Onset: 3 Episodic Other aftercare (8 sources) Long-term current use of drug therapy; Translations: [Other rat exterminator (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] Episodic Other circulatory disease (1 source) Hypotension, unspecified; Translations: [HYPOTENSION UNSPECIFIED] Onset: Episodic Other connective tissue disease (18 sources) [...] of hemorrhage)] 08-09-2022 Episodic Other gastrointestinal disorders (20 sources) Vascular ectasia of small intestine; Translations: [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] 11-25-2021 Episodic Other gastrointestinal disorders (20 sources) Gastrointestinal tract problem; Translations: [Other specified symptoms and signs involving the digestive system and abdomen] 11-05-2023 Episodic Other gastrointestinal disorders (4 sources) Other specified symptoms and signs involving the digestive system and abdomen; Translations: [Other abnormal clinical findings] 11-05-2023 Episodic Other gastrointestinal disorders (10 sources) Diarrhea; Translations: [Diarrhea, unspecified] 09-09-2024 Episodic Other gastrointestinal disorders (3 sources) Diarrhea, unspecified; Translations: [Diarrhea] 09-09-2024 Episodic Other injuries and conditions due to external causes (2 sources) History of falling; Translations: [History of falling] Episodic Other injuries and conditions due to external causes (7 sources) History of fall; Translations: [History of falling] Episodic Other lower respiratory disease (5 sources) Cough; Translations: [Cough] 12-08-2024 Episodic Other lower respiratory disease (3 sources) Dyspnea, unspecified; Translations: [Other respiratory abnormalities] 12-08-2024 Episodic Other lower respiratory disease (2 sources) Dyspnea; Translations: [Dyspnea, unspecified] 12-08-2024 Episodic Other nervous system disorders (11 sources) Polyneuropathy; Translations: [Polyneuropathy, unspecified] Chronic Other nervous system disorders (1 source) Polyneuropathy, unspecified Chronic Other nervous system disorders (9 sources) Paresthesia; Translations: [Paresthesia of skin] Episodic Other nutritional; endocrine; and metabolic disorders (20 sources) Body mass index 40+ - severely [...] nutritional; endocrine; and metabolic disorders (19 sources) Obesity; Translations: [Obesity, unspecified] 09-06-2024 Chronic Other nutritional; endocrine; and metabolic disorders (8 sources) Simple obesity ; Translations: [Other obesity due to excess calories] Onset: 6 Chronic Other screening for suspected conditions (not mental disorders or infectious disease) (13 sources) Encounter for screening mammogram for malignant neoplasm of breast; Translations: [Encounter for screening for osteoporosis] Onset: 5 Episodic Other skin disorders (11 sources) Skin lesion; Translations: [Disorder of the skin and subcutaneous tissue, unspecified] 02-11-2020 Episodic Other skin disorders (15 sources) Disorder of the skin and subcutaneous [...] Translations: [Alcohol use, unspecified with withdrawal, uncomplicated] Unclassified (2 sources) D64.9 - Anemia, unspecified,K44.9 - Diaphragmatic hernia without obstruction or gangrene,K25.7 - Chronic gastric ulcer without hemorrhage or perforation,K55.20 - 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 Urinary tract infections (4 sources) Urinary tract infection, site not specified; Translations: [Urinary tract infection, site not specified] 01-13-2025 Episodic Past or Other Problems Problem Classification Problem Date Documented Date Episodic/Chronic Chronic ulcer of skin (9 sources) Non-pressure [...] Name Value Interpretation Reference Range Facility Basophils [#/volume] in Bloo d by Automated countOrdered By: Francesca Devries on 03-24-2025 Basophils (Bld) [#/Vol] 0.1 10*3/uL 0.0-0.2 [facility] Comment on above: Result Comment: PERF ORMED BY: [place] [address] PATHOLOGIST CHEMICAL MAKER SAMANTHA HOPE M.D. Performed By: #### C BC #### [place] [address] [place] Basophils/100 leukocytes in Blood by Automated countOrdered By: Francesca Devries on 03-24-2025 Basophils/100 WBC (Bld) 2.0 % . [facility] Comment on above: Performed By: #### C BC #### [address] Complete Blood Count Auto Di ffon 03-24-2025 Mean Corpuscular HGB Conc 30.7 g/dL Low 32.0-35.0 [facility] Comment on above: Performed By: #### C BC #### [place] [address] [place] NRBC% 0.1 /100{WBC} Normal 0-0.5 [facility] Comment on above: Performed By: #### C BC #### [address] White Blood Count 4.4 [CFU]/mL Normal 3.8-11.6 [facility] Comment on above: Performed By: #### C BC #### [place] [address] [place] Eosinophils [#/volume] in Bl ood by Automated countOrdered By: Francesca Devries on 03-24-2025 Eosinophils (Bld) [#/Vol] 0.1 10*3/uL 0.0-0.45 [facility] Comment on above: Performed By: #### C BC #### [place] [address] [place] Eosinophils/100 leukocytes i n Blood by Automated countOrdered By: Francesca Devries on 03-24-2025 Eosinophils/100 WBC (Bld) 1.7 % . [facility] Comment on above: Performed By: #### C BC #### [address] Erythrocyte distribution wid th [Ratio] by Automated countOrdered By: Francesca Devries on 03-24-2025 Erythrocyte distribution width (RBC) [Ratio] 16.7 % High 11.9-15.3 [facility] Comment on above: Performed By: #### C BC #### [address] Erythrocytes [#/volume] in B lood by Automated countOrdered By: Francesca Devries on 03-24-2025 RBC (Bld) [#/Vol] 3.72 10*6/uL 3.60-5.00 [facility] Comment on above: Performed By: #### C BC #### [address] Hematocrit [Volume Fraction] of Blood by Automated countOrdered By: Francesca Devries on 03-24-2025 Hematocrit (Bld) [Volume fraction] 31.5 % Low 34.0-46.4 [facility] Comment on above: Performed By: #### C BC #### [address] Hemoglobin [Mass/volume] in BloodOrdered By: Francesca Devries on 03-24-2025 Hemoglobin (Bld) [Mass/Vol] 9.7 g/dL Low 11.8-15.4 [facility] Comment on above: Performed By: #### C BC #### [address] Leukocytes [#/volume] correc eugenia for nucleated erythrocytes in Blood by Automated counOrdered By: Francesca Devries on 03-24-2025 WBC corrected for nucl RBC Auto (Bld) [#/Vol] 4.4 10*3/uL 3.8-11.6 [facility] Leukocytes [#/volume] in Blo od by Automated countOrdered By: Francesca Devries on 03-24-2025 WBC (Bld) [#/Vol] 4.4 10*3/uL 3.8-11.6 [facility] Comment on above: Performed By: #### C BC #### [address] Lymphocytes [#/volume] in Bl ood by Automated countOrdered By: Francesca Devries on 03-24-2025 Lymphocytes (Bld) [#/Vol] 0.9 10*3/uL Low 1.00-4.8 [facility] Comment on above: Performed By: #### C BC #### [address] Lymphocytes/100 leukocytes i n Blood by Automated countOrdered By: Francesca Devries on 03-24-2025 Lymphocytes/100 WBC (Bld) 19.7 % . [facility] Comment on above: Performed By: #### C BC #### [address] MCH [Entitic mass] by Automa eugenia countOrdered By: Francesca Devries on 03-24-2025 MCH (RBC) [Entitic mass] 26.0 pg 24.7-34.3 [facility] Comment on above: Performed By: #### C BC #### [address] MCHC Auto (RBC) [Mass/Vol]Or dered By: Francesca Devries on 03-24-2025 MCHC (RBC) [Mass/Vol] 30.7 g/dL Low 32.0-35.0 [facility] MCV [Entitic volume] by Auto mated countOrdered By: Francesca Devries on 03-24-2025 MCV (RBC) [Entitic vol] 84.8 fL 80-100 [facility] Comment on above: Performed By: #### C BC #### [facility] [address] Mammography reportOrdered By : John Zamarripa on 03-24-2025 Diagnostic imaging study [facility] [address] [place] [address] [place] [address] Mammography Report Signed Patient: Tu Conde MR#: [id number] : 1950 Acct:[id number] Age/Sex: 74 / F Adm Date: 5 Loc: [place] Room: Type: [facility] Attending Dr: Shalom Jones DO Ordering Provider: Shalom Jones DO Date of Service: 03/24/25 Procedure(s): MM special view LT w/CAD; US breast LT limited Accession Number(s): ([id number]) MM/MM special view LT w/CAD: R92.8 - Other abnormal and inconclusive findings on diagn... ([id number]) US/US breast LT limited: R92.8 - Other abnormal and inconclusive findings on diagn... Copies to: Shalom Jones DO~ CLINICAL DATA: Abnormal screening mammogram COMPARISON:02/24/2025 Tomosynthesis craniocaudal and mediolateral oblique spot views of the left were obtained using low-dose digital technique. The breast tissue is composed of scattered fibroglandular densities. Ovoid mass 1:00 8 to 9 cm nipple 8 millimeters in greatest dimension.. Targeted left breast ultrasound demonstrates an ovoid cyst with through transmission of sound 1:00 MM/MM special view LT w/CAD IMPRESSION: Ovoid cyst left breast 1:00 is a benign finding. ROUTINE FOLLOW-UP IS RECOMMENDED IN ONE YEAR. RESULT CODE: 2 Benign Findings(s) DENSITY CODE: 2 (approximately 25-50% glandular) There are scattered areas of fibroglandular density. FOLLOW UP: 1YR The false-negative rate of mammography is approximately 10-percent. Management of a palpable abnormality must be based on clinical grounds. Patient was entered into a reminder system with a target due date for the next mammogram. Impression dictated by: John Zamarripa M.D. 03/24/2025 2:19 PM Dictation Location: [facility] Dictated By: John Zamarripa MD 03/24/25 1416 Signed By: 03/24/25 141 [facility] Work Phone: Monocytes [#/volume] in Bloo d by Automated countOrdered By: Francesca Devries on 03-24-2025 Monocytes (Bld) [#/Vol] 0.4 10*3/uL 0.0-0.8 [facility] Comment on above: Performed By: #### C BC #### [place] [address] [place] Monocytes/100 leukocytes in Blood by Automated countOrdered By: Francesca Devries on 03-24-2025 Monocytes/100 WBC (Bld) 9.6 % . [facility] Comment on above: Performed By: #### C BC #### [place] [address] [place] Neutrophils [#/volume] in Bl ood by Automated countOrdered By: Francesca Devries on 03-24-2025 Neutrophils (Bld) [#/Vol] 3.0 10*3/uL 1.8-7.7 [facility] Comment on above: Performed By: #### C BC #### [place] [address] [place] Neutrophils/100 leukocytes i n Blood by Automated countOrdered By: Francesca Devries on 03-24-2025 Neutrophils/100 WBC (Bld) 67.0 % . [facility] Comment on above: Performed By: #### C BC #### [place] [address] [place] Nucleated erythrocytes [Pres ence] in Blood by Automated countOrdered By: Francesca Devries on 03-24-2025 Nucleated RBC Auto Ql (Bld) 0.1 /100{WBC} 0-0.5 [facility] Platelet mean volume [Entiti c volume] in Blood by Automated countOrdered By: Francesca Devries on 03-24-2025 Platelet mean volume (Bld) [Entitic vol] 9.0 fL 6.3-10.7 [facility] Comment on above: Performed By: #### C BC #### [facility] [address] Platelets [#/volume] in Bloo d by Automated countOrdered By: Francesca Devries on 03-24-2025 Platelets (Bld) [#/Vol] 291 10*3/uL 150-450 [facility] Comment on above: Performed By: #### C BC #### [facility] [address] US breast LT limitedon 03-24 US breast LT limited [facility] [address] [place] [address] Mammography Report Signed Patient: Tu Conde MR#: [id number] : 1950 Acct:[id number] Age/Sex: 74 / F Adm Date: 03/24/25 Loc: [place] Room: Type: [facility] Attending Dr: Shalom Jones DO Ordering Provider: Shalom Jones DO Date of Service: 03/24/25 Procedure(s): MM special view LT w/CAD; US breast LT limited Accession Number(s): ([id number]) MM/MM special view LT w/CAD: R92.8 - Other abnormal and inconclusive findings on diagn... ([id number]) US/US breast LT limited: R92.8 - Other abnormal and inconclusive findings on diagn... Copies to: Shalom Jones DO CLINICAL DATA: Abnormal screening mammogram COMPARISON:02/24/2025 Tomosynthesis craniocaudal and mediolateral oblique spot views of the left were obtained using low- dose digital technique. The breast tissue is composed of scattered fibroglandular densities. Ovoid mass 1:00 8 to 9 cm nipple 8 millimeters in greatest dimension.. Targeted left breast ultrasound demonstrates an ovoid cyst with through transmission of sound 1:00 MM/MM special view LT w/CAD IMPRESSION: Ovoid cyst left breast 1:00 is a benign finding. ROUTINE FOLLOW-UP IS RECOMMENDED IN ONE YEAR. RESULT CODE: 2 Benign Findings(s) DENSITY CODE: 2 (approximately 25-50% glandular) There are scattered areas of fibroglandular density. FOLLOW UP: 1YR The false-negative rate of mammography is approximately 10-percent. Management of a palpable abnormality must be based on clinical grounds. Patient was entered into a reminder system with a target due date for the next mammogram. Impression dictated by: John Zamarripa M.D. 03/24/2025 2:19 PM Dictation Location: [facility] Dictated By: John Zamarripa MD 03/24/25 141 Signed By: 03/24/25 1419 Normal [facility] Alanine aminotransferase [En zymatic activity/volume] in Serum or PlasmaOrdered By: Shiela Chan on 02-11-2025 ALT [Catalytic activity/Vol] 10 U/L 7-52 [facility] Comment on above: Performed By: #### C BC, CMP #### [address] Albumin [Mass/volume] in Ser um or Plasma by Bromocresol green (BCG) dye binding methoOrdered By: Shiela Chan on 02-11-2025 Albumin BCG dye [Mass/Vol] 3.9 g/dL 3.5-5.7 [facility] Alkaline phosphatase [Enzyma tic activity/volume] in Serum or PlasmaOrdered By: Shiela Chan on 02-11-2025 ALP [Catalytic activity/Vol] 94 U/L 34-104 [facility] Comment on above: Performed By: #### C BC, CMP #### [facility] [address] [id number] [place] Aspartate aminotransferase [ Enzymatic activity/volume] in Serum or PlasmaOrdered By: Shiela Chan on 02-11-2025 AST [Catalytic activity/Vol] 14 U/L 13-39 [facility] Comment on above: Performed By: #### C BC, CMP #### [facility] [address] [id number] [place] Basophils [#/volume] in Bloo d by Automated countOrdered By: Shiela Chan on 02-11-2025 Basophils (Bld) [#/Vol] 0.1 10*3/uL Normal 0.0-0.2 [facility] Comment on above: Result Comment: PERF ORMED BY: [place] [address] PATHOLOGIST CHEMICAL MAKER SAMANTHA HOPE M.D. Performed By: #### C BC, CMP #### [facility] [address] [place] [address] Basophils/100 leukocytes in Blood by Automated countOrdered By: Shiela Dustin on 02-11-2025 Basophils/100 WBC (Bld) 2.8 % Normal . [facility] Comment on above: Performed By: #### C BC, CMP #### [address] Bilirubin.total [Mass/volume ] in Serum or PlasmaOrdered By: Shiela Dustin on 02-11-2025 Bilirubin [Mass/Vol] 0.6 mg/dL 0.3-1.0 [facility] Comment on above: Performed By: #### C BC, CMP #### [facility] [address] [place] [address] CBC W Auto Differential pane l (Bld)on 02-11-2025 Basophils (Bld) [#/Vol] 0.1 10*3/uL 0.0 - 0.2 10*3/uL [facility] Basophils/100 WBC Manual cnt (Syn fld) 2.8 % . [facility] Eosinophils (Bld) [#/Vol] 0.1 10*3/uL 0.0 - 0.45 10*3/uL [facility] Eosinophils/100 WBC Manual cnt (Syn fld) 2.1 % . [facility] Erythrocyte distribution width (RBC) [Ratio] 14.8 % 11.9 - 15.3 % [facility] Hematocrit (Bld) [Volume fraction] 29.5 % Low 34.0 - 46.4 % [facility] Hemoglobin (Bld) [Mass/Vol] 8.9 g/dL Low 11.8 - 15.4 g/dL [facility] Interpretation and review of laboratory results Abnormal [facility] Lymphocytes (Bld) [#/Vol] 0.7 10*3/uL Low 1.00 - 4.8 10*3/uL [facility] Lymphocytes/100 WBC Manual cnt (Syn fld) 14.4 % . [facility] MCH (RBC) [Entitic mass] 26.6 pg 24.7 - 34.3 pg [facility] MCHC (RBC) [Mass/Vol] 30.2 g/dL Low 32.0 - 35.0 g/dL [facility] MCV (RBC) [Entitic vol] 88.2 fL 80 - 100 fL [facility] Monocytes (Bld) [#/Vol] 0.3 10*3/uL 0.0 - 0.8 10*3/uL [facility] Monocytes+Macrophages/ 100 WBC Manual cnt (Syn fld) 6.9 % . [facility] Neutrophils (Bld) [#/Vol] 3.6 10*3/uL 1.8 - 7.7 10*3/uL [facility] Neutrophils/100 WBC Manual cnt (Syn fld) 73.8 % . [facility] NRBC 0.1 /100{WBC} 0 - 0.5 /100{WBC} [facility] Platelet mean volume (Bld) [Entitic vol] 8.3 fL 6.3 - 10.7 fL [facility] Platelets (Bld) [#/Vol] 316 10*3/uL 150 - 450 10*3/uL [facility] RBC LM.HPF (Urine sed) [#/Area] 3.35 10*6/uL Low 3.60 - 5.00 10*6/uL [facility] WBC (Bld) [#/Vol] 4.8 10*3/uL 3.8 - 11.6 10*3/uL [facility] WBC LM.HPF (Urine sed) [#/Area] 4.8 [CFU]/mL 3.8 - 11.6 [CFU]/mL [facility] Calcium [Mass/volume] in Ser um or PlasmaOrdered By: Shiela Chan on 02-11-2025 Calcium [Mass/Vol] 8.6 mg/dL 8.6-10.3 [facility] Comment on above: Performed By: #### C BC, CMP #### [address] Carbon dioxide, total [Moles /volume] in Serum or PlasmaOrdered By: Shiela Chan on 02-11-2025 CO2 [Moles/Vol] 26.0 mmol/L 21.0-31.0 [facility] Comment on above: Performed By: #### C BC, CMP #### [address] Chloride [Moles/volume] in S rian or PlasmaOrdered By: Shiela Sababreann on 02-11-2025 Chloride [Moles/Vol] 110 mmol/L High 98-107 [facility] Comment on above: Performed By: #### C BC, CMP #### [address] Complete Blood Count Auto Di ffon 02-11-2025 Mean Corpuscular HGB Conc 30.2 g/dL Low 32.0-35.0 [facility] Comment on above: Performed By: #### C BC, CMP #### [address] NRBC% 0.1 /100{WBC} Normal 0-0.5 [facility] Comment on above: Performed By: #### C BC, CMP #### [address] White Blood Count 4.8 [CFU]/mL Normal 3.8-11.6 [facility] Comment on above: Performed By: #### C BC, CMP #### [address] Comprehensive Metabolic Pane danielito 02-11-2025 Albumin [Mass/Vol] 3.9 g/dL Normal 3.5-5.7 [facility] Comment on above: Performed By: #### C BC, CMP #### [address] Creatinine Clr Calc Pharmacy 77.57 Normal [facility] Comment on above: Result Comment: PERF ORMED BY: [place] [address] PATHOLOGIST CHEMICAL MAKER SAMANTHA HOPE M.D. Performed By: #### C BC, CMP #### [facility] [address] GFR/1.73 sq M.predicted MDRD (S/P/Bld) [Vol rate/Area] mL/min/{1.73_m2} Normal [facility] Comment on above: Performed By: #### C BC, CMP #### [facility] [address] [id number] [facility] Comprehensive metabolic pane [facility] 02-11-2025 Albumin [Mass/Vol] 3.9 g/dL 3.5 - 5.7 g/dL [facility] Albumin/Globulin [Mass ratio] 1.4 {ratio} [facility] ALP [Catalytic activity/Vol] 94 U/L 34 - 104 U/L [facility] ALT [Catalytic activity/Vol] 10 U/L 7 - 52 U/L [facility] Anion gap [Moles/Vol] 9.4 mmol/L 6.0 - 15.0 [facility] AST [Catalytic activity/Vol] 14 U/L 13 - 39 U/L [facility] Bilirubin [Mass/Vol] 0.6 mg/dL 0.3 - 1 .0 mg/dL [facility] Calcium [Mass/Vol] 8.6 mg/dL 8.6 - 10. 3 mg/dL [facility] Chloride [Moles/Vol] 110 mmol/L High 98 - 10 7 mmol/L [facility] CO2 [Moles/Vol] 26 mmol/L 21.0 - 31.0 mmol/L [facility] Creatinine (U) [Mass/Vol] 0.74 mg/dL 0.60 - 1.20 mg/dL [facility] CREATININE CLR CALC PHARMACY 77.57 [facility] ESTIMATED GFR [facility] Globulin (S) [Mass/Vol] 2.7 g/dL [facility] Glucose [Mass/Vol] 91 mg/dL 70 - 100 mg/dL [facility] Comment on above: Random Glucose Refer ence Range is dependent on time and content of last meal. Glucose of more than 200 mg/dL in a nonstressed, ambulatory subject supports the diagnosis of Diabetes Mellitus. ADA recommended reference range Interpretation and review of laboratory results Abnormal [facility] Potassium [Moles/Vol] 4.4 mmol/L 3.5 - 5.1 mmol/L [facility] Protein [Mass/Vol] 6.6 g/dL 6.4 - 8.9 g/dL [facility] Sodium [Moles/Vol] 141 mmol/L 136 - 145 mmol/L [facility] Urea nitrogen [Mass/Vol] 15 mg/dL 7 - 25 mg/dL [facility] Creatinine [Mass/volume] in Serum or PlasmaOrdered By: Shiela Dustin on 02-11-2025 Creatinine [Mass/Vol] 0.74 mg/dL 0.60-1.20 [facility] Comment on above: Performed By: #### C BC, CMP #### [place] [address] [place] Eosinophils [#/volume] in Bl ood by Automated countOrdered By: Shiela Dustin on 02-11-2025 Eosinophils (Bld) [#/Vol] 0.1 10*3/uL Normal 0.0-0.45 [facility] Comment on above: Performed By: #### C BC, CMP #### [place] [address] [place] Eosinophils/100 leukocytes i n Blood by Automated countOrdered By: Shiela Chan on 02-11-2025 Eosinophils/100 WBC (Bld) 2.1 % Normal . [facility] Comment on above: Performed By: #### C BC, CMP #### [place] [address] [place] Erythrocyte distribution wid th [Ratio] by Automated countOrdered By: Shiela Chan on 02-11-2025 Erythrocyte distribution width (RBC) [Ratio] 14.8 % Normal 11.9-15.3 [facility] Comment on above: Performed By: #### C BC, CMP #### [facility] [address] [place] [address] [place] Erythrocytes [#/volume] in B lood by Automated countOrdered By: Shiela Chan on 02-11-2025 RBC (Bld) [#/Vol] 3.35 10*6/uL Low 3.60-5.00 [facility] Comment on above: Performed By: #### C BC, CMP #### [facility] [address] Glucose [Mass/volume] in Ser um or PlasmaOrdered By: Shiela Sababreann on 02-11-2025 Glucose [Mass/Vol] 91 mg/dL 70-100 [facility] Comment on above: ADA recommended refe rence rangeRandom Glucose Reference Range is dependent on time and content of last meal. Glucose of more than 200 mg/dL in a nonstressed, ambulatory subject supports the diagnosis of Diabetes Mellitus. Result Comment: [place] Glucose Reference Range is dependent on time and content of last meal. Glucose of more than 200 mg/dL in a nonstressed, ambulatory subject supports the diagnosis of Diabetes Mellitus. ADA recommended reference range Performed By: #### C BC, CMP #### [address] Hematocrit [Volume Fraction] of Blood by Automated countOrdered By: Shiela Dustin on 02-11-2025 Hematocrit (Bld) [Volume fraction] 29.5 % Low 34.0-46.4 [facility] Comment on above: Performed By: #### C BC, CMP #### [address] Hemoglobin [Mass/volume] in BloodOrdered By: Shiela Dustin on 02-11-2025 Hemoglobin (Bld) [Mass/Vol] 8.9 g/dL Low 11.8-15.4 [facility] Comment on above: Performed By: #### C BC, CMP #### [address] Leukocytes [#/volume] correc eugenia for nucleated erythrocytes in Blood by Automated counOrdered By: Shiela Dustin on 02-11-2025 WBC corrected for nucl RBC Auto (Bld) [#/Vol] 4.8 10*3/uL 3.8-11.6 [facility] Leukocytes [#/volume] in Blo od by Automated countOrdered By: Shiela Dustin on 02-11-2025 WBC (Bld) [#/Vol] 4.8 10*3/uL Normal 3.8-11.6 [facility] Comment on above: Performed By: #### C BC, CMP #### [address] Lymphocytes [#/volume] in Bl ood by Automated countOrdered By: Shiela Dustin on 02-11-2025 Lymphocytes (Bld) [#/Vol] 0.7 10*3/uL Low 1.00-4.8 [facility] Comment on above: Performed By: #### C BC, CMP #### [address] Lymphocytes/100 leukocytes i n Blood by Automated countOrdered By: Shiela Dustin on 02-11-2025 Lymphocytes/100 WBC (Bld) 14.4 % Normal . [facility] Comment on above: Performed By: #### C BC, CMP #### [address] MCH [Entitic mass] by Automa eugenia countOrdered By: Shiela Dustin on 02-11-2025 MCH (RBC) [Entitic mass] 26.6 pg Normal 24.7-34.3 [facility] Comment on above: Performed By: #### C BC, CMP #### [address] MCHC Auto (RBC) [Mass/Vol]Or dered By: Shiela Dustin on 02-11-2025 MCHC (RBC) [Mass/Vol] 30.2 g/dL Low 32.0-35.0 [facility] MCV [Entitic volume] by Auto mated countOrdered By: Shiela Dustin on 02-11-2025 MCV (RBC) [Entitic vol] 88.2 fL Normal 80-100 [facility] Comment on above: Performed By: #### C BC, CMP #### [address] Methylmalonic Acidon 025 Methylmalonic Acid 178 Normal 0-378 [facility] Comment on above: Result Comment: This test was developed and its performance characteristics determined by [employer]. It has not been cleared or approved by the Food and Drug Administration. Performed at: - [facility] [address] [id number] Certified Nurses Aide: Gregorio Kelsey MD, Phone: [phone] PERFORMED BY: [place] [address] PATHOLOGIST CHEMICAL MAKER SAMANTHA HOPE M.D. Performed By: #### M ETH #### [facility] , Monocytes [#/volume] in Bloo d by Automated countOrdered By: Shiela Dustin on 02-11-2025 Monocytes (Bld) [#/Vol] 0.3 10*3/uL Normal 0.0-0.8 [facility] Comment on above: Performed By: #### C BC, CMP #### [place] [address] [place] Monocytes/100 leukocytes in Blood by Automated countOrdered By: Shiela Dustin on 02-11-2025 Monocytes/100 WBC (Bld) 6.9 % Normal . [facility] Comment on above: Performed By: #### C BC, CMP #### [facility] [address] [place] [address] [place] Neutrophils [#/volume] in Bl ood by Automated countOrdered By: Shiela Dustin on 02-11-2025 Neutrophils (Bld) [#/Vol] 3.6 10*3/uL Normal 1.8-7.7 [facility] Comment on above: Performed By: #### C BC, CMP #### [facility] [address] [place] [address] [place] Neutrophils/100 leukocytes i n Blood by Automated countOrdered By: Shiela Dustin on 02-11-2025 Neutrophils/100 WBC (Bld) 73.8 % Normal . [facility] Comment on above: Performed By: #### C BC, CMP #### [address] No Panel InformationOrdered By: Shiela Chan on 02-11-2025 Estimated GFR (CKD-EPI) > 60.0 mL/Min [facility] Creatinine Clearance (Chem 77.57 [facility] Nucleated erythrocytes [Pres ence] in Blood by Automated countOrdered By: Shiela Sababreann on 02-11-2025 Nucleated RBC Auto Ql (Bld) 0.1 /100{WBC} 0-0.5 [facility] Platelet mean volume [Entiti c volume] in Blood by Automated countOrdered By: Shiela Sababreann on 02-11-2025 Platelet mean volume (Bld) [Entitic vol] 8.3 fL Normal 6.3-10.7 [facility] Comment on above: Performed By: #### C BC, CMP #### [address] Platelets [#/volume] in Bloo d by Automated countOrdered By: Shiela Dustin on 02-11-2025 Platelets (Bld) [#/Vol] 316 10*3/uL Normal 150-450 [facility] Comment on above: Performed By: #### C BC, CMP #### [address] Potassium [Moles/volume] in Serum or PlasmaOrdered By: Shiela Dustin on 02-11-2025 Potassium [Moles/Vol] 4.4 mmol/L 3.5-5.1 [facility] Comment on above: Performed By: #### C BC, CMP #### [address] Protein [Mass/volume] in Ser um or PlasmaOrdered By: Shiela Dustin on 02-11-2025 Protein [Mass/Vol] 6.6 g/dL 6.4-8.9 [facility] Comment on above: Performed By: #### C BC, CMP #### [address] Serum globulin measurement b y calculation (mass/volume)Ordered By: Shiela Dustin on 02-11-2025 Globulin (S) [Mass/Vol] 2.7 g/dL [facility] Comment on above: Performed By: #### C BC, CMP #### [address] Serum or plasma albumin/glob ulin mass ratioOrdered By: Shiela Dustin on 02-11-2025 Albumin/Globulin [Mass ratio] 1.4 {ratio} [facility] Comment on above: Performed By: #### C BC, CMP #### [address] Serum or plasma anion gap de terminationOrdered By: Shiela Dustin on 02-11-2025 Anion gap [Moles/Vol] 9.4 mmol/L 6.0-15.0 [facility] Comment on above: Performed By: #### C BC, CMP #### [address] Serum or plasma methylmalona te measurement (moles/volume)Ordered By: Francesca Devries on 02-11-2025 Methylmalonate [Moles/Vol] 178 nmol/L 0-378 [facility] Comment on above: This test was devkavithao ped and its performance characteristicsdetermined by [employer]. It has not been cleared orapproved by the Food and Drug Administration.Performed at: [facility] [address] [id number] Director: Gregorio Kelsey MD, Phone: [phone] Sodium [Moles/volume] in Ser um or PlasmaOrdered By: Shiela Dustin on 02-11-2025 Sodium [Moles/Vol] 141 mmol/L 136-145 [facility] Comment on above: Performed By: #### C BC, CMP #### [facility] [address] [place] [address] [place] Urea nitrogen [Mass/volume] in Serum or PlasmaOrdered By: Shiela Dustin on 02-11-2025 Urea nitrogen [Mass/Vol] 15 mg/dL 7-25 [facility] Comment on above: Performed By: #### C BC, CMP #### [address] Iron binding capacity [Mass/ volume] in Serum or PlasmaOrdered By: Francesca Devries on 02-08-2025 Iron binding capacity [Mass/Vol] 400.0 ug/dL 250.0-450. 0 [facility] Iron saturation [Mass Fracti on] in Serum or PlasmaOrdered By: Francesca Devries on 02-08-2025 Iron saturation [Mass fraction] 30.0 % [facility] Laboratory - Chemistry and C hemistry - challengeOrdered By: Francesca Devries on 02-08-2025 Ferritin [Mass/Vol] 16.0 ng/mL 8.0-252.0 [facility] Iron [Mass/Vol] 120.0 ug/dL 50.0-170.0 [facility]RO IRON AND TIBCon 2024 TBH IRON 120 ug/dL 50.0 - 170.0 ug/dL [facility] TBH PERCENT IRON SATURATION 30 % [facility] TB TOTAL IRON BINDING CAPACITY 400 ug/dL 250.0 - 450.0 ug/dL [facility] No Panel InformationOrdered By: Francesca Devries on 02-08-2025 Folate 8.60 ng/mL 8.60-58.90 [facility] Vitamin B12 Level >2000 pg/mL Abnormal [id number] [facility] Comment on above: Performed at: [address] [id number] Director: Janes Barrientos PhD, Phone: [phone] Serum or plasma methylmalona te measurement (moles/volume)Ordered By: Francesca Devries on 02-08-2025 Methylmalonate [Moles/Vol] 291 nmol/L 0-378 [facility] Comment on above: This test was develo ped and its performance characteristicsdetermined by [facility]. It has not been cleared orapproved by the Food and Drug Administration.Performed at: [address] [id number] Director: Gregorio Kelsey MD, Phone: [phone] Basophils Auto (Bld) [#/Vol] on 12-31-2024 Basophils (Bld) [#/Vol] Automated basophil count 0.0-0.1 [facility] Basophils (Bld) [#/Vol] 0.1 10 3/uL 0.0-0.1 [facility] Basophils/100 WBC Auto (Bld) on 12-31-2024 Basophils/100 WBC (Bld) Automated basophil % 0.2-2.0 [facility] Basophils/100 WBC (Bld) 1.3 % 0.2-2.0 [facility] Eosinophils/100 WBC Auto (Bl d)on 12-31-2024 Eosinophils/100 WBC (Bld) Automated eosinophil % 0.9-7.0 [facility] Eosinophils/100 WBC (Bld) 1.3 % 0.9-7.0 [facility] Erythrocyte distribution wid th Auto (RBC) [Ratio]on 12-31-2024 Erythrocyte distribution width (RBC) [Ratio] Erythrocyte distribution width [Ratio] by Automated count 11.0-15.0 [facility] Erythrocyte distribution width (RBC) [Ratio] 14.4 % 11.0-15.0 [facility] Estimated glomerular filtrat ion rate (GFR) non- Americanon 12-31-2024 GFR/1.73 sq M.predicted among non-blacks MDRD (S/P/Bld) [Vol rate/Area] Estimated glomerular filtration rate (GFR) non- >=60 mL/min/1.7 3m 2 [facility] GFR/1.73 sq M.predicted among non-blacks MDRD (S/P/Bld) [Vol rate/Area] mL/min/{1.73_m2} >=60 mL/min/1.7 3m 2 [facility] Globulin Calc (S) [Mass/Vol] on 12-31-2024 Globulin (S) [Mass/Vol] Serum globulin measurement by calculation (mass/volume) [facility] Globulin (S) [Mass/Vol] 3.6 g/dL [facility] Hematocrit Auto (Bld) [Volum e fraction]on 12-31-2024 Hematocrit (Bld) [Volume fraction] Hematocrit [Volume Fraction] of Blood by Automated count 36.0-48.0 [facility] Hematocrit (Bld) [Volume fraction] 36.7 % 36.0-48.0 [facility] Hemoglobin [Mass/volume] in Bloodon 12-31-2024 Hemoglobin (Bld) [Mass/Vol] Hemoglobin [Mass/volume] in Blood Low 12.0-16.0 [facility] Hemoglobin (Bld) [Mass/Vol] 11.3 g/dL Low 12.0-16.0 [facility] Laboratory - Chemistry and C hemistry - challengeon 12-31-2024 Bilirubin Ql (U) Negative NEGATIVE [facility] Glucose (U) [Mass/Vol] Negative NEGATIVE [facility] Ketones Ql (U) TRACE mg/dL Abnormal NEGATIVE [facility] pH (U) 5.5 [pH] 5.0-9.0 [facility] Specific gravity (U) [Rel density] >=1.030 Abnormal 1.005-1.02 5 [facility] Urobilinogen Qn (U) 0.2 {Carlota'U}/dL 0.2-1.0 [facility] Albumin [Mass/Vol] 3.1 g/dL Low 3.4-5.0 [facility] ALP [Catalytic activity/Vol] 104 U/L 46-116 [facility] ALT [Catalytic activity/Vol] 14 U/L 14-59 [facility] AST [Catalytic activity/Vol] 10 U/L Low 15-37 [facility] Bilirubin [Mass/Vol] 0.5 mg/dL 0.2-1.0 [facility] Bilirubin.direct [Mass/Vol] 0.1 mg/dL 0.0-0.2 [facility] Calcium [Mass/Vol] 9.0 mg/dL 8.5-10.1 [facility] Chloride [Moles/Vol] 108 mmol/L High 98-107 [facility] CO2 [Moles/Vol] 24.4 mmol/L 21.0-32.0 [facility] Creatinine [Mass/Vol] 0.87 mg/dL 0.55-1.02 [facility] GFR/1.73 sq M.predicted MDRD (S/P/Bld) [Vol rate/Area] mL/min/{1.73_m2} >=60 mL/min/1.7 3m 2 [facility] Glucose [Mass/Vol] 103 mg/dL 74-106 [facility] Magnesium [Mass/Vol] 1.9 mg/dL 1.8-2.4 [facility] Potassium [Moles/Vol] 4.0 mmol/L 3.5-5.1 [facility] Protein [Mass/Vol] 6.7 g/dL 6.4-8.2 [facility] Sodium [Moles/Vol] 145 mmol/L 136-145 [facility] Urea nitrogen [Mass/Vol] 24.0 mg/dL High 7.0-18.0 [facility] Urea nitrogen/Creatinine [Mass ratio] 27.6 mg/mg [facility] Laboratory - Hematology and Cell countson 12-31-2024 Immature granulocytes/100 WBC (Bld) 0.3 % 0.0-0.5 [facility] Laboratory - Specimen inform ationon 12-31-2024 Appearance (U) SLIGHTLY CLOUDY Abnormal CLEAR [facility] Color (U) YELLOW YELLOW [facility] Laboratory - Urinalysison Hyaline casts LM Ql (Urine sed) MODERATE [facility] Leukocyte esterase Test strip Ql (U) TRACE Abnormal NEGATIVE [facility] Mucus Ql (Urine sed) SMALL Abnormal NONE SEEN [facility] Nitrite Ql (U) Negative NEGATIVE [facility] Protein Ql (U) Negative NEG/TRACE [facility] Leukocytes [#/volume] correc eugenia for nucleated erythrocytes in Blood by Automated counon 12-31-2024 WBC corrected for nucl RBC Auto (Bld) [#/Vol] Leukocytes [#/volume] corrected for nucleated erythrocytes in Blood by Automated coun 4.0-11.0 [facility] WBC corrected for nucl RBC Auto (Bld) [#/Vol] 6.8 10 3/uL 4.0-11.0 [facility] Lymphocytes Auto (Bld) [#/Vo l]on 12-31-2024 Lymphocytes (Bld) [#/Vol] Lymphocytes [#/volume] in Blood by Automated count Low 1.2-3.8 [facility] Lymphocytes (Bld) [#/Vol] 1.1 10 3/uL Low 1.2-3.8 [facility] Lymphocytes/100 WBC Auto (Bl d)on 12-31-2024 Lymphocytes/100 WBC (Bld) Lymphocytes/100 leukocytes in Blood by Automated count Low 20.5-60.0 [facility] Lymphocytes/100 WBC (Bld) 16.6 % Low 20.5-60.0 [facility] MCH Auto (RBC) [Entitic mass ]on 12-31-2024 MCH (RBC) [Entitic mass] MCH [Entitic mass] by Automated count 26.7-34.0 [facility] MCH (RBC) [Entitic mass] 29.4 pg 26.7-34.0 [facility] MCHC Auto (RBC) [Mass/Vol]on 12-31-2024 MCHC (RBC) [Mass/Vol] MCHC [Mass/volume] by Automated count 29.9-35.2 [facility] MCHC (RBC) [Mass/Vol] 30.8 g/dL 29.9-35.2 [facility] MCV Auto (RBC) [Entitic vol] on 12-31-2024 MCV (RBC) [Entitic vol] MCV [Entitic volume] by Automated count 81.0-99.0 [facility] [facility] MCV (RBC) [Entitic vol] 95.6 fL 81.0-99.0 [facility] Monocytes Auto (Bld) [#/Vol] on 12-31-2024 Monocytes (Bld) [#/Vol] Automated blood monocyte count 0.3-0.8 [facility] Monocytes (Bld) [#/Vol] 0.6 10 3/uL 0.3-0.8 [facility] Monocytes/100 WBC Auto (Bld) on 12-31-2024 Monocytes/100 WBC (Bld) Automated monocyte % 1.7-12.0 [facility] Monocytes/100 WBC (Bld) 8.7 % 1.7-12.0 [facility] Neutrophils Auto (Bld) [#/Vo l]on 12-31-2024 Neutrophils (Bld) [#/Vol] Neutrophils [#/volume] in Blood by Automated count 1.4-6.5 [facility] Neutrophils (Bld) [#/Vol] 4.8 10 3/uL 1.4-6.5 [facility] Neutrophils/100 WBC Auto (Bl d)on 12-31-2024 Neutrophils/100 WBC (Bld) Automated neutrophil % 43.0-75.0 [facility] Neutrophils/100 WBC (Bld) 71.8 % 43.0-75.0 [facility] No Panel Informationon 12-31 Urine Bacteria TRACE #/HPF Abnormal NONE SEEN [facility] Urine Culture [place] [place] [facility] Micro[facility]opic Review YES [facility] Urine Occult Blood TRACE-I NEGATIVE [facility] Urine Other Casts SEEN #/LPF Abnormal NONE SEEN [facility] Urine Other Crystals None Seen #/HPF None Seen [facility] Urine RBC 0-2 #/HPF 0-2 [facility] Urine Squamous Epithelial Cells MODERATE #/LPF Abnormal NONE/RARE [facility] Urine WBC 5-10 #/HPF Abnormal NONE SEEN [facility] Eosinophils # (Auto) 0.1 10 3/uL 0.0-0.7 [facility] Immature Granulocyte # (Auto) 0.02 10 3/uL 0.00-0.03 [facility] Troponin I High Sensitivity 7.4 pg/mL 4.0-51.3 [facility] Comment on above: CUT-OFF POINTS HAVE BEEN [...] IN CONJUNCTIONWITH OTHER DIAGNOSTIC AND CLINICAL INFORMATION. Platelet mean volume Auto (B ld) [Entitic vol]on 12-31-2024 Platelet mean volume (Bld) [Entitic vol] Platelet mean volume [Entitic volume] in Blood by Automated count 9.5-13.5 [facility] Platelet mean volume (Bld) [Entitic vol] 10.3 fL 9.5-13.5 [facility] Platelets Auto (Bld) [#/Vol] on 12-31-2024 Platelets (Bld) [#/Vol] Platelets [#/volume] in Blood by Automated count 150-450 [facility] Platelets (Bld) [#/Vol] 308 10 3/uL 150-450 [facility] RBC Auto (Bld) [#/Vol]on RBC (Bld) [#/Vol] Erythrocytes [#/volu me] in Blood by Automated count Low 4.20-5.40 [facility] RBC (Bld) [#/Vol] 3.84 10 6/uL Low 4.20-5.40 [facility] Serum or plasma albumin/glob ulin mass ratioon 12-31-2024 Albumin/Globulin [Mass ratio] Serum or plasma albumin/globulin mass ratio [facility] Albumin/Globulin [Mass ratio] 0.9 {ratio} [facility] Serum or plasma anion gap de terminationon 12-31-2024 Anion gap [Moles/Vol] Serum or plasma an ion gap determination [facility] Anion gap [Moles/Vol] 16.6 mmol/L [facility] 12[facility]31-2024 Bacteria identified Cx Nom (U) 20,000 colonies/ml mixed bacterial skin contaminants 2 Days PERFORMED BY: [place] [address] PATHOLOGIST [employer] SAMANTHA HOPE M.D. Normal [facility] Comment on above: Performed By: #### C UU #### [address] Urine cultureOrdered By: Tima Parra on 12-31-2024 Bacteria identified Cx Nom (U) Urine culture [facility] Bacteria identified Cx Nom (U) 2 Days [facility] Basophils Auto (Bld) [#/Vol] on 10-20-2024 Basophils (Bld) [#/Vol] Automated basophil count 0.0-0.1 [facility] Basophils/100 WBC Auto (Bld) on 10-20-2024 Basophils/100 WBC (Bld) Automated basophil % 0.2-2.0 [facility] Eosinophils/100 WBC Auto (Bl d)on 10-20-2024 Eosinophils/100 WBC (Bld) Automated eosinophil % 0.9-7.0 [facility] Erythrocyte distribution wid th Auto (RBC) [Ratio]on 10-20-2024 Erythrocyte distribution width (RBC) [Ratio] Erythrocyte distribution width [Ratio] by Automated count 11.0-15.0 [facility] Hematocrit Auto (Bld) [Volum e fraction]on 10-20-2024 Hematocrit (Bld) [Volume fraction] Hematocrit [Volume Fraction] of Blood by Automated count 36.0-48.0 [facility] Hemoglobin [Mass/volume] in Bloodon 10-20-2024 Hemoglobin (Bld) [Mass/Vol] Hemoglobin [Mass/volume] in Blood 12.0-16.0 [facility] Iron binding capacity [Mass/ volume] in Serum or Plasmaon 10-20-2024 Iron binding capacity [Mass/Vol] Iron binding capacity [Mass/volume] in Serum or Plasma 250.0-450. 0 [facility] Iron saturation [Mass Fracti on] in Serum or Plasmaon 10-20-2024 Iron saturation [Mass fraction] Iron saturation [Mass Fraction] in Serum or Plasma [facility] Laboratory - Chemistry and C hemistry - challengeon 10-20-2024 Ferritin [Mass/Vol] 116.0 ng/mL 8.0-252.0 [facility] Iron [Mass/Vol] 43.0 ug/dL Low 50.0-170.0 [facility] Laboratory - Hematology and Cell countson 10-20-2024 Immature granulocytes/100 WBC (Bld) 0.2 % 0.0-0.5 [facility] Leukocytes [#/volume] correc eugenia for nucleated erythrocytes in Blood by Automated counon 10-20-2024 WBC corrected for nucl RBC Auto (Bld) [#/Vol] Leukocytes [#/volume] corrected for nucleated erythrocytes in Blood by Automated coun 4.0-11.0 [facility] Lymphocytes Auto (Bld) [#/Vo l]on 10-20-2024 Lymphocytes (Bld) [#/Vol] Lymphocytes [#/volume] in Blood by Automated count Low 1.2-3.8 [facility] Lymphocytes/100 WBC Auto (Bl d)on 10-20-2024 Lymphocytes/100 WBC (Bld) Lymphocytes/100 leukocytes in Blood by Automated count Low 20.5-60.0 [facility] MCH Auto (RBC) [Entitic mass ]on 10-20-2024 MCH (RBC) [Entitic mass] MCH [Entitic mass] by Automated count 26.7-34.0 [facility] MCHC Auto (RBC) [Mass/Vol]on 10-20-2024 MCHC (RBC) [Mass/Vol] MCHC [Mass/volume] by Automated count 29.9-35.2 [facility] MCV Auto (RBC) [Entitic vol] on 10-20-2024 MCV (RBC) [Entitic vol] MCV [Entitic volume] by Automated count High 81.0-99.0 [facility] Monocytes Auto (Bld) [#/Vol] on 10-20-2024 Monocytes (Bld) [#/Vol] Automated blood monocyte count 0.3-0.8 [facility] Monocytes/100 WBC Auto (Bld) on 10-20-2024 Monocytes/100 WBC (Bld) Automated monocyte % 1.7-12.0 [facility] Neutrophils Auto (Bld) [#/Vo l]on 10-20-2024 Neutrophils (Bld) [#/Vol] Neutrophils [#/volume] in Blood by Automated count 1.4-6.5 [facility] Neutrophils/100 WBC Auto (Bl d)on 10-20-2024 Neutrophils/100 WBC (Bld) Automated neutrophil % 43.0-75.0 [facility] No Panel Informationon 10-20 Eosinophils # (Auto) 0.1 10 3/uL 0.0-0.7 [facility] Immature Granulocyte # (Auto) 0.01 10 3/uL 0.00-0.03 [facility] Platelet mean volume Auto (B ld) [Entitic vol]on 10-20-2024 Platelet mean volume (Bld) [Entitic vol] Platelet mean volume [Entitic volume] in Blood by Automated count 9.5-13.5 [facility] Platelets Auto (Bld) [#/Vol] on 10-20-2024 Platelets (Bld) [#/Vol] Platelets [#/volume] in Blood by Automated count 150-450 [facility] RBC Auto (Bld) [#/Vol]on RBC (Bld) [#/Vol] Erythrocytes [#/volu me] in Blood by Automated count Low 4.20-5.40 [facility] Basophils Auto (Bld) [#/Vol] on 08-11-2024 Basophils (Bld) [#/Vol] Automated basophil count 0.0-0.1 [facility] Basophils/100 WBC Auto (Bld) on 08-11-2024 Basophils/100 WBC (Bld) Automated basophil % 0.2-2.0 [facility] Eosinophils/100 WBC Auto (Bl d)on 08-11-2024 Eosinophils/100 WBC (Bld) Automated eosinophil % 0.9-7.0 [facility] Erythrocyte distribution wid th Auto (RBC) [Ratio]on 08-11-2024 Erythrocyte distribution width (RBC) [Ratio] Erythrocyte distribution width [Ratio] by Automated count High 11.0-15.0 [facility] Estimated glomerular filtrat ion rate (GFR) non- Americanon 08-11-2024 GFR/1.73 sq M.predicted among non-blacks MDRD (S/P/Bld) [Vol rate/Area] Estimated glomerular filtration rate (GFR) non- >=60 mL/min/1.7 3m 2 [facility] Globulin Calc (S) [Mass/Vol] on 08-11-2024 Globulin (S) [Mass/Vol] Serum globulin measurement by calculation (mass/volume) [facility] Hematocrit Auto (Bld) [Volum e fraction]on 08-11-2024 Hematocrit (Bld) [Volume fraction] Hematocrit [Volume Fraction] of Blood by Automated count 36.0-48.0 [facility] Hemoglobin [Mass/volume] in Bloodon 08-11-2024 Hemoglobin (Bld) [Mass/Vol] Hemoglobin [Mass/volume] in Blood Low 12.0-16.0 [facility] Iron binding capacity [Mass/ volume] in Serum or Plasmaon 08-11-2024 Iron binding capacity [Mass/Vol] Iron binding capacity [Mass/volume] in Serum or Plasma 250.0-450. 0 [facility] Iron saturation [Mass Fracti on] in Serum or Plasmaon 08-11-2024 Iron saturation [Mass fraction] Iron saturation [Mass Fraction] in Serum or Plasma [facility] Laboratory - Chemistry and C hemistry - challengeon 08-11-2024 Albumin [Mass/Vol] 3.0 g/dL Low 3.4-5.0 [facility] ALP [Catalytic activity/Vol] 109 U/L 46-116 [facility] ALT [Catalytic activity/Vol] 16 U/L 14-59 [facility] AST [Catalytic activity/Vol] 11 U/L Low 15-37 [facility] Bilirubin [Mass/Vol] 0.5 mg/dL 0.2-1.0 [facility] Calcium [Mass/Vol] 8.4 mg/dL Low 8.5-10.1 [facility] Chloride [Moles/Vol] 108 mmol/L High 98-107 [facility] CO2 [Moles/Vol] 26.8 mmol/L 21.0-32.0 [facility] Creatinine [Mass/Vol] 0.83 mg/dL 0.55-1.02 [facility] Ferritin [Mass/Vol] 69.0 ng/mL 8.0-252.0 [facility] GFR/1.73 sq M.predicted MDRD (S/P/Bld) [Vol rate/Area] mL/min/{1.73_m2} >=60 mL/min/1.7 3m 2 [facility] Glucose [Mass/Vol] 96 mg/dL 74-106 [facility] Iron [Mass/Vol] 51.0 ug/dL 50.0-170.0 [facility] Potassium [Moles/Vol] 4.3 mmol/L 3.5-5.1 [facility] Protein [Mass/Vol] 6.3 g/dL Low 6.4-8.2 [facility] Sodium [Moles/Vol] 140 mmol/L 136-145 [facility] Urea nitrogen [Mass/Vol] 19.0 mg/dL High 7.0-18.0 [facility] Urea nitrogen/Creatinine [Mass ratio] 22.9 mg/mg [facility] Laboratory - Hematology and Cell countson 08-11-2024 Immature granulocytes/100 WBC (Bld) 0.6 % High 0.0-0.5 [facility] Leukocytes [#/volume] correc eugenia for nucleated erythrocytes in Blood by Automated counon 08-11-2024 WBC corrected for nucl RBC Auto (Bld) [#/Vol] Leukocytes [#/volume] corrected for nucleated erythrocytes in Blood by Automated coun 4.0-11.0 [facility] Lymphocytes Auto (Bld) [#/Vo l]on 08-11-2024 Lymphocytes (Bld) [#/Vol] Lymphocytes [#/volume] in Blood by Automated count Low 1.2-3.8 [facility] Lymphocytes/100 WBC Auto (Bl d)on 08-11-2024 Lymphocytes/100 WBC (Bld) Lymphocytes/100 leukocytes in Blood by Automated count 20.5-60.0 [facility] MCH Auto (RBC) [Entitic mass ]on 08-11-2024 MCH (RBC) [Entitic mass] MCH [Entitic mass] by Automated count 26.7-34.0 [facility] MCHC Auto (RBC) [Mass/Vol]on 08-11-2024 MCHC (RBC) [Mass/Vol] MCHC [Mass/volume] by Automated count 29.9-35.2 [facility] MCV Auto (RBC) [Entitic vol] on 08-11-2024 MCV (RBC) [Entitic vol] MCV [Entitic volume] by Automated count 81.0-99.0 [facility] Monocytes Auto (Bld) [#/Vol] on 08-11-2024 Monocytes (Bld) [#/Vol] Automated blood monocyte count 0.3-0.8 [facility] Monocytes/100 WBC Auto (Bld) on 08-11-2024 Monocytes/100 WBC (Bld) Automated monocyte % 1.7-12.0 [facility] Neutrophils Auto (Bld) [#/Vo l]on 08-11-2024 Neutrophils (Bld) [#/Vol] Neutrophils [#/volume] in Blood by Automated count 1.4-6.5 [facility] Neutrophils/100 WBC Auto (Bl d)on 08-11-2024 Neutrophils/100 WBC (Bld) Automated neutrophil % 43.0-75.0 [facility] No Panel Informationon 08-11 Eosinophils # (Auto) 0.1 10 3/uL 0.0-0.7 [facility] Immature Granulocyte # (Auto) 0.03 10 3/uL 0.00-0.03 [facility] Platelet mean volume Auto (B ld) [Entitic vol]on 08-11-2024 Platelet mean volume (Bld) [Entitic vol] Platelet mean volume [Entitic volume] in Blood by Automated count 9.5-13.5 [facility] Platelets Auto (Bld) [#/Vol] on 08-11-2024 Platelets (Bld) [#/Vol] Platelets [#/volume] in Blood by Automated count 150-450 [facility] RBC Auto (Bld) [#/Vol]on RBC (Bld) [#/Vol] Erythrocytes [#/volu me] in Blood by Automated count Low 4.20-5.40 [facility] Serum or plasma albumin/glob ulin mass ratioon 08-11-2024 Albumin/Globulin [Mass ratio] Serum or plasma albumin/globulin mass ratio [facility] Serum or plasma anion gap de terminationon 08-11-2024 Anion gap [Moles/Vol] Serum or plasma an ion gap determination [facility] Basophils Auto (Bld) [#/Vol] on 05-15-2024 Basophils (Bld) [#/Vol] 0.1 10 3/uL 0.0-0.1 [facility] Basophils/100 WBC Auto (Bld) on 05-15-2024 Basophils/100 WBC (Bld) 1.0 % 0.2-2.0 [facility] Eosinophils/100 WBC Auto (Bl d)on 05-15-2024 Eosinophils/100 WBC (Bld) 1.9 % 0.9-7.0 [facility] Erythrocyte distribution wid th Auto (RBC) [Ratio]on 05-15-2024 Erythrocyte distribution width (RBC) [Ratio] 13.2 % 11.0-15.0 [facility] Hematocrit Auto (Bld) [Volum e fraction]on 05-15-2024 Hematocrit (Bld) [Volume fraction] 32.8 % Low 36.0-48.0 [facility] Hemoglobin [Mass/volume] in Bloodon 05-15-2024 Hemoglobin (Bld) [Mass/Vol] 9.8 g/dL Low 12.0-16.0 [facility] Iron binding capacity [Mass/ volume] in Serum or Plasmaon 05-15-2024 Iron binding capacity [Mass/Vol] 302.0 ug/dL 250.0-450. 0 [facility] Iron saturation [Mass Fracti on] in Serum or Plasmaon 05-15-2024 Iron saturation [Mass fraction] 8.6 % [facility] Laboratory - Chemistry and C hemistry - challengeon 05-15-2024 Ferritin [Mass/Vol] 28.0 ng/mL 8.0-252.0 [facility] Iron [Mass/Vol] 26.0 ug/dL Low 50.0-170.0 [facility] Laboratory - Hematology and Cell countson 05-15-2024 Immature granulocytes/100 WBC (Bld) 0.1 % 0.0-0.5 [facility] Leukocytes [#/volume] correc eugenia for nucleated erythrocytes in Blood by Automated counon 05-15-2024 WBC corrected for nucl RBC Auto (Bld) [#/Vol] 6.9 10 3/uL 4.0-11.0 [facility] Lymphocytes Auto (Bld) [#/Vo l]on 05-15-2024 Lymphocytes (Bld) [#/Vol] 1.0 10 3/uL Low 1.2-3.8 [facility] Lymphocytes/100 WBC Auto (Bl d)on 05-15-2024 Lymphocytes/100 WBC (Bld) 15.2 % Low 20.5-60.0 [facility] MCH Auto (RBC) [Entitic mass ]on 05-15-2024 MCH (RBC) [Entitic mass] 28.9 pg 26.7-34.0 [facility] MCHC Auto (RBC) [Mass/Vol]on 05-15-2024 MCHC (RBC) [Mass/Vol] 29.9 g/dL 29.9-35.2 [facility] MCV Auto (RBC) [Entitic vol] on 05-15-2024 MCV (RBC) [Entitic vol] 96.8 fL 81.0-99.0 [facility] Monocytes Auto (Bld) [#/Vol] on 05-15-2024 Monocytes (Bld) [#/Vol] 0.4 10 3/uL 0.3-0.8 [facility] Monocytes/100 WBC Auto (Bld) on 05-15-2024 Monocytes/100 WBC (Bld) 6.4 % 1.7-12.0 [facility] Neutrophils Auto (Bld) [#/Vo l]on 05-15-2024 Neutrophils (Bld) [#/Vol] 5.2 10 3/uL 1.4-6.5 [facility] Neutrophils/100 WBC Auto (Bl d)on 05-15-2024 Neutrophils/100 WBC (Bld) 75.4 % High 43.0-75.0 [facility] No Panel Informationon 05-15 Eosinophils # (Auto) 0.1 10 3/uL 0.0-0.7 [facility] Immature Granulocyte # (Auto) 0.01 10 3/uL 0.00-0.03 [facility] Platelet mean volume Auto (B ld) [Entitic vol]on 05-15-2024 Platelet mean volume (Bld) [Entitic vol] 10.3 fL 9.5-13.5 [facility] Platelets Auto (Bld) [#/Vol] on 05-15-2024 Platelets (Bld) [#/Vol] 288 10 3/uL 150-450 [facility] RBC Auto (Bld) [#/Vol]on RBC (Bld) [#/Vol] 3.39 10 6/uL Low 4.20-5.40 [facility] Basophils Auto (Bld) [#/Vol] on 02-04-2024 Basophils (Bld) [#/Vol] 0.1 10 3/uL 0.0-0.1 [facility] Basophils/100 WBC Auto (Bld) on 02-04-2024 Basophils/100 WBC (Bld) 1.1 % 0.2-2.0 [facility] Eosinophils/100 WBC Auto (Bl d)on 02-04-2024 Eosinophils/100 WBC (Bld) 1.6 % 0.9-7.0 [facility] Erythrocyte distribution wid th Auto (RBC) [Ratio]on 02-04-2024 Erythrocyte distribution width (RBC) [Ratio] 17.0 % High 11.0-15.0 [facility] Estimated glomerular filtrat ion rate (GFR) non- Americanon 02-04-2024 GFR/1.73 sq M.predicted among non-blacks MDRD (S/P/Bld) [Vol rate/Area] mL/min/{1.73_m2} >=60 [facility] Globulin Calc (S) [Mass/Vol] on 02-04-2024 Globulin (S) [Mass/Vol] 3.6 g/dL [facility] Hematocrit Auto (Bld) [Volum e fraction]on 02-04-2024 Hematocrit (Bld) [Volume fraction] 42.5 % 36.0-48.0 [facility] Hemoglobin [Mass/volume] in Bloodon 02-04-2024 Hemoglobin (Bld) [Mass/Vol] 13.5 g/dL 12.0-16.0 [facility] Iron binding capacity [Mass/ volume] in Serum or Plasmaon 02-04-2024 Iron binding capacity [Mass/Vol] 236.0 ug/dL Low 250.0-450. 0 [facility] Iron saturation [Mass Fracti on] in Serum or Plasmaon 02-04-2024 Iron saturation [Mass fraction] 32.2 % [facility] Laboratory - Chemistry and C hemistry - challengeon 02-04-2024 Albumin [Mass/Vol] 3.5 g/dL 3.4-5.0 [facility] ALP [Catalytic activity/Vol] 147 U/L High 46-116 [facility] ALT [Catalytic activity/Vol] 21 U/L 14-59 [facility] AST [Catalytic activity/Vol] 12 U/L Low 15-37 [facility] Bilirubin [Mass/Vol] 0.9 mg/dL 0.2-1.0 [facility] Calcium [Mass/Vol] 8.9 mg/dL 8.5-10.1 [facility] Chloride [Moles/Vol] 106 mmol/L 98-107 [facility] CO2 [Moles/Vol] 25.7 mmol/L 21.0-32.0 [facility] Creatinine [Mass/Vol] 0.91 mg/dL 0.55-1.02 [facility] Ferritin [Mass/Vol] 385.0 ng/mL High 8.0-252.0 [facility] GFR/1.73 sq M.predicted MDRD (S/P/Bld) [Vol rate/Area] mL/min/{1.73_m2} >=60 [facility] Glucose [Mass/Vol] 98 mg/dL 74-106 [facility] Iron [Mass/Vol] 76.0 ug/dL 50.0-170.0 [facility] Potassium [Moles/Vol] 4.0 mmol/L 3.5-5.1 [facility] Protein [Mass/Vol] 7.1 g/dL 6.4-8.2 [facility] Sodium [Moles/Vol] 139 mmol/L 136-145 [facility] Urea nitrogen [Mass/Vol] 17.0 mg/dL 7.0-18.0 [facility] Urea nitrogen/Creatinine [Mass ratio] 18.7 mg/mg [facility] Laboratory - Hematology and Cell countson 02-04-2024 Immature granulocytes/100 WBC (Bld) 0.3 % 0.0-0.5 [facility] Leukocytes [#/volume] correc eugenia for nucleated erythrocytes in Blood by Automated counon 02-04-2024 WBC corrected for nucl RBC Auto (Bld) [#/Vol] 6.2 10 3/uL 4.0-11.0 [facility] Lymphocytes Auto (Bld) [#/Vo l]on 02-04-2024 Lymphocytes (Bld) [#/Vol] 1.0 10 3/uL Low 1.2-3.8 [facility] Lymphocytes/100 WBC Auto (Bl d)on 02-04-2024 Lymphocytes/100 WBC (Bld) 16.6 % Low 20.5-60.0 [facility] MCH Auto (RBC) [Entitic mass ]on 02-04-2024 MCH (RBC) [Entitic mass] 28.4 pg 26.7-34.0 [facility] MCHC Auto (RBC) [Mass/Vol]on 02-04-2024 MCHC (RBC) [Mass/Vol] 31.8 g/dL 29.9-35.2 [facility] MCV Auto (RBC) [Entitic vol] on 02-04-2024 MCV (RBC) [Entitic vol] 89.5 fL 81.0-99.0 [facility] Monocytes Auto (Bld) [#/Vol] on 02-04-2024 Monocytes (Bld) [#/Vol] 0.5 10 3/uL 0.3-0.8 [facility] Monocytes/100 WBC Auto (Bld) on 02-04-2024 Monocytes/100 WBC (Bld) 7.6 % 1.7-12.0 [facility] Neutrophils Auto (Bld) [#/Vo l]on 02-04-2024 Neutrophils (Bld) [#/Vol] 4.5 10 3/uL 1.4-6.5 [facility] Neutrophils/100 WBC Auto (Bl d)on 02-04-2024 Neutrophils/100 WBC (Bld) 72.8 % 43.0-75.0 [facility] No Panel Informationon 02-03 Eosinophils # (Auto) 0.1 10 3/uL 0.0-0.7 [facility] Immature Granulocyte # (Auto) 0.02 10 3/uL 0.00-0.03 [facility] Platelet mean volume Auto (B ld) [Entitic vol]on 02-04-2024 Platelet mean volume (Bld) [Entitic vol] 9.9 fL 9.5-13.5 [facility] Platelets Auto (Bld) [#/Vol] on 02-04-2024 Platelets (Bld) [#/Vol] 277 10 3/uL 150-450 [facility] RBC Auto (Bld) [#/Vol]on RBC (Bld) [#/Vol] 4.75 10 6/uL 4.20-5.40 [facility] Serum or plasma albumin/glob ulin mass ratioon 02-04-2024 Albumin/Globulin [Mass ratio] 1.0 {ratio} [facility] Serum or plasma anion gap de terminationon 02-04-2024 Anion gap [Moles/Vol] 11.3 [facility] Bas[facility] Auto (Bld) [#/Vol] on 11-05-2023 Basophils (Bld) [#/Vol] 0.1 10 3/uL 0.0-0.1 [facility] Basophils/100 WBC Auto (Bld) on 11-05-2023 Basophils/100 WBC (Bld) 1.2 % 0.2-2.0 [facility] Eosinophils/100 WBC Auto (Bl d)on 11-05-2023 Eosinophils/100 WBC (Bld) 1.4 % 0.9-7.0 [facility] Erythrocyte distribution wid th Auto (RBC) [Ratio]on 11-05-2023 Erythrocyte distribution width (RBC) [Ratio] 14.4 % 11.0-15.0 [facility] Estimated glomerular filtrat ion rate (GFR) non- Americanon 11-05-2023 GFR/1.73 sq M.predicted among non-blacks MDRD (S/P/Bld) [Vol rate/Area] mL/min/{1.73_m2} >=60 [facility] Globulin Calc (S) [Mass/Vol] on 11-05-2023 Globulin (S) [Mass/Vol] 3.8 g/dL [facility] Hematocrit Auto (Bld) [Volum e fraction]on 11-05-2023 Hematocrit (Bld) [Volume fraction] 38.8 % 36.0-48.0 [facility] Hemoglobin [Mass/volume] in Bloodon 11-05-2023 Hemoglobin (Bld) [Mass/Vol] 11.5 g/dL 12.0-16.0 [facility] Iron binding capacity [Mass/ volume] in Serum or Plasmaon 11-05-2023 Iron binding capacity [Mass/Vol] 362.0 ug/dL 250.0-450. 0 [facility] Iron saturation [Mass Fracti on] in Serum or Plasmaon 11-05-2023 Iron saturation [Mass fraction] 8.8 % [facility] Laboratory - Chemistry and C hemistry - challengeon 11-05-2023 Albumin [Mass/Vol] 3.3 g/dL 3.4-5.0 [facility] ALP [Catalytic activity/Vol] 120 U/L 46-116 [facility] ALT [Catalytic activity/Vol] 23 U/L 14-59 [facility] AST [Catalytic activity/Vol] 20 U/L 15-37 [facility] Bilirubin [Mass/Vol] 0.7 mg/dL 0.2-1.0 [facility] Calcium [Mass/Vol] 8.8 mg/dL 8.5-10.1 [facility] Chloride [Moles/Vol] 106 mmol/L 98-107 [facility] CO2 [Moles/Vol] 26.9 mmol/L 21.0-32.0 [facility] Creatinine [Mass/Vol] 0.84 mg/dL 0.55-1.02 [facility] Ferritin [Mass/Vol] 39.0 ng/mL 8.0-252.0 [facility] GFR/1.73 sq M.predicted MDRD (S/P/Bld) [Vol rate/Area] mL/min/{1.73_m2} >=60 [facility] Glucose [Mass/Vol] 88 mg/dL 74-106 [facility] Iron [Mass/Vol] 32.0 ug/dL 50.0-170.0 [facility] Potassium [Moles/Vol] 4.0 mmol/L 3.5-5.1 [facility] Protein [Mass/Vol] 7.1 g/dL 6.4-8.2 [facility] Sodium [Moles/Vol] 142 mmol/L 136-145 [facility] Urea nitrogen [Mass/Vol] 11.0 mg/dL 7.0-18.0 [facility] Urea nitrogen/Creatinine [Mass ratio] 13.1 mg/mg [facility] Laboratory - Hematology and Cell countson 11-05-2023 Immature granulocytes/100 WBC (Bld) 0.3 % 0.0-0.5 [facility] Leukocytes [#/volume] correc eugenia for nucleated erythrocytes in Blood by Automated counon 11-05-2023 WBC corrected for nucl RBC Auto (Bld) [#/Vol] 6.5 10 3/uL 4.0-11.0 [facility] Lymphocytes Auto (Bld) [#/Vo l]on 11-05-2023 Lymphocytes (Bld) [#/Vol] 1.0 10 3/uL 1.2-3.8 [facility] Lymphocytes/100 WBC Auto (Bl d)on 11-05-2023 Lymphocytes/100 WBC (Bld) 14.7 % 20.5-60.0 [facility] MCH Auto (RBC) [Entitic mass ]on 11-05-2023 MCH (RBC) [Entitic mass] 27.3 pg 26.7-34.0 [facility] MCHC Auto (RBC) [Mass/Vol]on 11-05-2023 MCHC (RBC) [Mass/Vol] 29.6 g/dL 29.9-35.2 [facility] MCV Auto (RBC) [Entitic vol] on 11-05-2023 MCV (RBC) [Entitic vol] 92.2 fL 81.0-99.0 [facility] Monocytes Auto (Bld) [#/Vol] on 11-05-2023 Monocytes (Bld) [#/Vol] 0.4 10 3/uL 0.3-0.8 [facility] Monocytes/100 WBC Auto (Bld) on 11-05-2023 Monocytes/100 WBC (Bld) 6.4 % 1.7-12.0 [facility] Neutrophils Auto (Bld) [#/Vo l]on 11-05-2023 Neutrophils (Bld) [#/Vol] 4.9 10 3/uL 1.4-6.5 [facility] Neutrophils/100 WBC Auto (Bl d)on 11-05-2023 Neutrophils/100 WBC (Bld) 76.0 % 43.0-75.0 [facility] No Panel Informationon 11-04 Eosinophils # (Auto) 0.1 10 3/uL 0.0-0.7 [facility] Immature Granulocyte # (Auto) 0.02 10 3/uL 0.00-0.03 [facility] Platelet mean volume Auto (B ld) [Entitic vol]on 11-05-2023 Platelet mean volume (Bld) [Entitic vol] 10.4 fL 9.5-13.5 [facility] Platelets Auto (Bld) [#/Vol] on 11-05-2023 Platelets (Bld) [#/Vol] 330 10 3/uL 150-450 [facility] RBC Auto (Bld) [#/Vol]on RBC (Bld) [#/Vol] 4.21 10 6/uL 4.20-5.40 [facility] Serum or plasma albumin/glob ulin mass ratioon 11-05-2023 Albumin/Globulin [Mass ratio] 0.9 {ratio} [facility] Serum or plasma anion gap de terminationon 11-05-2023 Anion gap [Moles/Vol] 13.1 mmol/L [facility] Basophils Auto (Bld) [#/Vol] on 10-22-2023 Basophils (Bld) [#/Vol] 0.1 10 3/uL 0.0-0.1 [facility] Basophils/100 WBC Auto (Bld) on 10-22-2023 Basophils/100 WBC (Bld) 1.1 % 0.2-2.0 [facility] Eosinophils/100 WBC Auto (Bl d)on 10-22-2023 Eosinophils/100 WBC (Bld) 0.6 % 0.9-7.0 [facility] Erythrocyte distribution wid th Auto (RBC) [Ratio]on 10-22-2023 Erythrocyte distribution width (RBC) [Ratio] 15.9 % 11.0-15.0 [facility] Estimated glomerular filtrat ion rate (GFR) non- Americanon 10-22-2023 GFR/1.73 sq M.predicted among non-blacks MDRD (S/P/Bld) [Vol rate/Area] mL/min/{1.73_m2} >=60 [facility] Hematocrit Auto (Bld) [Volum e fraction]on 10-22-2023 Hematocrit (Bld) [Volume fraction] 35.0 % 36.0-48.0 [facility] Hemoglobin [Mass/volume] in Bloodon 10-22-2023 Hemoglobin (Bld) [Mass/Vol] 10.4 g/dL 12.0-16.0 [facility] Laboratory - Chemistry and C hemistry - challengeon 10-22-2023 Calcium [Mass/Vol] 7.8 mg/dL 8.5-10.1 [facility] Chloride [Moles/Vol] 107 mmol/L 98-107 [facility] CO2 [Moles/Vol] 23.6 mmol/L 21.0-32.0 [facility] Creatinine [Mass/Vol] 0.74 mg/dL 0.55-1.02 [facility] GFR/1.73 sq M.predicted MDRD (S/P/Bld) [Vol rate/Area] mL/min/{1.73_m2} >=60 [facility] Glucose [Mass/Vol] 114 mg/dL 74-106 [facility] Potassium [Moles/Vol] 3.6 mmol/L 3.5-5.1 [facility] Sodium [Moles/Vol] 139 mmol/L 136-145 [facility] Urea nitrogen [Mass/Vol] 21.0 mg/dL 7.0-18.0 [facility] Urea nitrogen/Creatinine [Mass ratio] 28.4 mg/mg [facility] Laboratory - Hematology and Cell countson 10-22-2023 Immature granulocytes/100 WBC (Bld) 0.4 % 0.0-0.5 [facility] Leukocytes [#/volume] correc eugenia for nucleated erythrocytes in Blood by Automated counon 10-22-2023 WBC corrected for nucl RBC Auto (Bld) [#/Vol] 8.4 10 3/uL 4.0-11.0 [facility] Lymphocytes Auto (Bld) [#/Vo l]on 10-22-2023 Lymphocytes (Bld) [#/Vol] 1.4 10 3/uL 1.2-3.8 [facility] Lymphocytes/100 WBC Auto (Bl d)on 10-22-2023 Lymphocytes/100 WBC (Bld) 16.2 % 20.5-60.0 [facility] MCH Auto (RBC) [Entitic mass ]on 10-22-2023 MCH (RBC) [Entitic mass] 28.0 pg 26.7-34.0 [facility] MCHC Auto (RBC) [Mass/Vol]on 10-22-2023 MCHC (RBC) [Mass/Vol] 29.7 g/dL 29.9-35.2 [facility] MCV Auto (RBC) [Entitic vol] on 10-22-2023 MCV (RBC) [Entitic vol] 94.3 fL 81.0-99.0 [facility] Monocytes Auto (Bld) [#/Vol] on 10-22-2023 Monocytes (Bld) [#/Vol] 0.9 10 3/uL 0.3-0.8 [facility] Monocytes/100 WBC Auto (Bld) on 10-22-2023 Monocytes/100 WBC (Bld) 10.8 % 1.7-12.0 [facility] Neutrophils Auto (Bld) [#/Vo l]on 10-22-2023 Neutrophils (Bld) [#/Vol] 5.9 10 3/uL 1.4-6.5 [facility] Neutrophils/100 WBC Auto (Bl d)on 10-22-2023 Neutrophils/100 WBC (Bld) 70.9 % 43.0-75.0 [facility] No Panel Informationon 10-21 Eosinophils # (Auto) 0.1 10 3/uL 0.0-0.7 [facility] Immature Granulocyte # (Auto) 0.03 10 3/uL 0.00-0.03 [facility] Platelet mean volume Auto (B ld) [Entitic vol]on 10-22-2023 Platelet mean volume (Bld) [Entitic vol] 11.0 fL 9.5-13.5 [facility] Platelets Auto (Bld) [#/Vol] on 10-22-2023 Platelets (Bld) [#/Vol] 198 10 3/uL 150-450 [facility] RBC Auto (Bld) [#/Vol]on RBC (Bld) [#/Vol] 3.71 10 6/uL 4.20-5.40 [facility] Serum or plasma anion gap de terminationon 10-22-2023 Anion gap [Moles/Vol] 12.0 mmol/L [facility] Activated partial thrombopla stin time (aPTT) in platelet poor plasma by coagulation aon 10-21-2023 aPTT Coag (PPP) [Time] 23.8 s 22.3-36.2 [facility] Automated epithelial cells c ount in urine sediment (number/area)on 10-21-2023 Epithelial cells Auto (Urine sed) [#/Area] RARE #/LPF NONE/RARE [facility] Automated leukocytes count i n urine sediment (number/area)on 10-21-2023 WBC Auto (Urine sed) [#/Area] 2-5 #/HPF 0-2 [facility] Automated urine hyaline cast s count (number/volume)on 10-21-2023 Hyaline casts Auto (U) [#/Vol] RARE [facility] Automated urine specific gra vity by refractometryon 10-21-2023 Specific gravity Refractometry automated (U) [Rel density] 1.025 1.005-1.02 5 [facility] Basophils Auto (Bld) [#/Vol] on 10-21-2023 Basophils (Bld) [#/Vol] 0.1 10 3/uL 0.0-0.1 [facility] Basophils/100 WBC Auto (Bld) on 10-21-2023 Basophils/100 WBC (Bld) 1.4 % 0.2-2.0 [facility] Bilirubin Auto test strip (U ) [Mass/Vol]on 10-21-2023 Bilirubin (U) [Mass/Vol] Negative NEGATIVE [facility] Casts typing in urine sedime nt by light microscopyon 10-21-2023 Casts LM Nom (Urine sed) SEEN #/LPF NONE SEEN [facility] Color Auto (U)on 10-21-2023 Color (U) LT. YELLOW YELLOW [facility] Eosinophils/100 WBC Auto (Bl d)on 10-21-2023 Eosinophils/100 WBC (Bld) 1.5 % 0.9-7.0 [facility] Erythrocyte distribution wid th Auto (RBC) [Ratio]on 10-21-2023 Erythrocyte distribution width (RBC) [Ratio] 14.2 % 11.0-15.0 [facility] Estimated glomerular filtrat ion rate (GFR) non- Americanon 10-21-2023 GFR/1.73 sq M.predicted among non-blacks MDRD (S/P/Bld) [Vol rate/Area] mL/min/{1.73_m2} >=60 [facility] Globulin Calc (S) [Mass/Vol] on 10-21-2023 Globulin (S) [Mass/Vol] 3.6 g/dL [facility] Hematocrit Auto (Bld) [Volum e fraction]on 10-21-2023 Hematocrit (Bld) [Volume fraction] 34.3 % 36.0-48.0 [facility] Hemoglobin [Mass/volume] in Bloodon 10-21-2023 Hemoglobin (Bld) [Mass/Vol] 9.8 g/dL 12.0-16.0 [facility] INR in Platelet poor plasma by Coagulation assayon 10-21-2023 INR Coag (PPP) [Relative time] 0.94 {INR} [facility] Comment on above: DESIRED INR:2.0-3.0 CONDITIONS NOT LISTED BELOW2.5-3.5 FOR PROSTHETIC HEART VALVE REPLACEMENT2.5-3.5 RECURRENT THROMBOSIS Ketones Auto test strip (U) [Mass/Vol]on 10-21-2023 Ketones (U) [Mass/Vol] mg/dL NEGATIVE [facility] - [facility] and C hemistry - challengeon 10-21-2023 Lactate [Moles/Vol] 1.1 mmol/L 0.4-2.0 [facility] Albumin [Mass/Vol] 3.0 g/dL 3.4-5.0 [facility] ALP [Catalytic activity/Vol] 118 U/L 46-116 [facility] ALT [Catalytic activity/Vol] 18 U/L 14-59 [facility] AST [Catalytic activity/Vol] 14 U/L 15-37 [facility] Bilirubin [Mass/Vol] 0.4 mg/dL 0.2-1.0 [facility] Calcium [Mass/Vol] 8.1 mg/dL 8.5-10.1 [facility] Chloride [Moles/Vol] 106 mmol/L 98-107 [facility] CO2 [Moles/Vol] 19.0 mmol/L 21.0-32.0 [facility] Creatinine [Mass/Vol] 0.91 mg/dL 0.55-1.02 [facility] GFR/1.73 sq M.predicted MDRD (S/P/Bld) [Vol rate/Area] mL/min/{1.73_m2} >=60 [facility] Glucose [Mass/Vol] 124 mg/dL 74-106 [facility] Natriuretic peptide B (Bld) [Mass/Vol] 153.0 pg/mL <=900.0 [facility] Potassium [Moles/Vol] 4.0 mmol/L 3.5-5.1 [facility] Protein [Mass/Vol] 6.6 g/dL 6.4-8.2 [facility] Sodium [Moles/Vol] 143 mmol/L 136-145 [facility] Urea nitrogen [Mass/Vol] 28.0 mg/dL 7.0-18.0 [facility] Urea nitrogen/Creatinine [Mass ratio] 30.8 mg/mg [facility] Laboratory - Hematology and Cell countson 10-21-2023 Immature granulocytes/100 WBC (Bld) 0.3 % 0.0-0.5 [facility] Leukocytes [#/volume] correc eugenia for nucleated erythrocytes in Blood by Automated counon 10-21-2023 WBC corrected for nucl RBC Auto (Bld) [#/Vol] 7.9 10 3/uL 4.0-11.0 [facility] Lymphocytes Auto (Bld) [#/Vo l]on 10-21-2023 Lymphocytes (Bld) [#/Vol] 1.8 10 3/uL 1.2-3.8 [facility] Lymphocytes/100 WBC Auto (Bl d)on 10-21-2023 Lymphocytes/100 WBC (Bld) 22.1 % 20.5-60.0 [facility] MCH Auto (RBC) [Entitic mass ]on 10-21-2023 MCH (RBC) [Entitic mass] 27.8 pg 26.7-34.0 [facility] MCHC Auto (RBC) [Mass/Vol]on 10-21-2023 MCHC (RBC) [Mass/Vol] 28.6 g/dL 29.9-35.2 [facility] MCV Auto (RBC) [Entitic vol] on 10-21-2023 MCV (RBC) [Entitic vol] 97.4 fL 81.0-99.0 [facility] Monocytes Auto (Bld) [#/Vol] on 10-21-2023 Monocytes (Bld) [#/Vol] 0.5 10 3/uL 0.3-0.8 [facility] Monocytes/100 WBC Auto (Bld) on 10-21-2023 Monocytes/100 WBC (Bld) 6.3 % 1.7-12.0 [facility] Mucus LM Ql (Urine sed)on Mucus Ql (Urine sed) NONE SEEN NONE SEEN [facility] Neutrophils Auto (Bld) [#/Vo l]on 10-21-2023 Neutrophils (Bld) [#/Vol] 5.4 10 3/uL 1.4-6.5 [facility] Neutrophils/100 WBC Auto (Bl d)on 10-21-2023 Neutrophils/100 WBC (Bld) 68.4 % 43.0-75.0 [facility] No Panel Informationon 10-20 [employer] Helicobacter pylori Urease Test Negative [facility] Culture [facility]ed [facility] YES [facility] Eosinophils # (Auto) 0.1 10 3/uL 0.0-0.7 [facility] Immature Granulocyte # (Auto) 0.02 10 3/uL 0.00-0.03 [facility] Troponin I High Sensitivity <4.0 pg/mL 4.0-51.3 [facility] Comment on above: CUT-OFF POINTS HAVE BEEN [...] CLINICAL INFORMATION. No Panel InformationOrdered By: Shalom Jones on 10-21-2023 Blood Culture 2 [facility] Blood Culture 1 [facility] Platelet mean volume Auto (B ld) [Entitic vol]on 10-21-2023 Platelet mean volume (Bld) [Entitic vol] 10.5 fL 9.5-13.5 [facility] Platelets Auto (Bld) [#/Vol] on 10-21-2023 Platelets (Bld) [#/Vol] 328 10 3/uL 150-450 [facility] Protein Auto test strip (U) [Mass/Vol]on 10-21-2023 Protein (U) [Mass/Vol] Negative NEG/TRACE [facility] Prothrombin time (PT)on 10-03 PT Coag (PPP) [Time] 10.0 s 9.0-11.6 [facility] RBC Auto (Bld) [#/Vol]on RBC (Bld) [#/Vol] 3.52 10 6/uL 4.20-5.40 [facility] Serum or plasma albumin/glob ulin mass ratioon 10-21-2023 Albumin/Globulin [Mass ratio] 0.8 {ratio} [facility] Serum or plasma anion gap de terminationon 10-21-2023 Anion gap [Moles/Vol] 22.0 mmol/L [facility] Serum procalcitonin measurem enton 10-21-2023 Procalcitonin [Mass/Vol] ng/mL 0.00-0.50 [facility] Specific gravity Auto test s trip (U) [Rel density]on 10-21-2023 Specific gravity (U) [Rel density] CLEAR CLEAR [facility] Urine bacteria detection by automated methodon 10-21-2023 Bacteria Auto Ql (U) NONE SEEN #/HPF NONE SEEN [facility] Urine glucose measurement by test strip (mass/volume)on 10-21-2023 Glucose Test strip (U) [Mass/Vol] Negative NEGATIVE [facility] Urine hemoglobin detection b y automated test stripon 10-21-2023 Hemoglobin Auto test strip Ql (U) SMALL NEGATIVE [facility] Urine nitrite detection by a utomated test stripon 10-21-2023 Nitrite Auto test strip Ql (U) Negative NEGATIVE [facility] Urine sediment crystal ident ification by light microscopyon 10-21-2023 Crystals LM Nom (Urine sed) None Seen #/HPF None Seen [facility] Urine sediment leukocyte cou nt by microscopy (number/high power field)on 10-21-2023 WBC LM.HPF (Urine sed) [#/Area] 0-2 #/HPF NONE SEEN [facility] Urobilinogen Auto test strip (U) [Mass/Vol]on 10-21-2023 Urobilinogen Qn (U) 0.2 {Carlota'U}/dL 0.2-1.0 [facility] pH Auto test strip (U)on pH (U) 5.0 [pH] 5.0-9.0 [facility] Anisocytosis LM Ql (Bld)Orde red By: Ricky Perdomo on 05-15-2023 Anisocytosis Ql (Bld) Moderate [facility] Basophils Auto (Bld) [#/Vol] Ordered By: Ricky Perdomo on 05-15-2023 Basophils (Bld) [#/Vol] 0.1 10*3/uL 0.0-0.2 [facility] Basophils/100 WBC Auto (Bld) Ordered By: Ricky Perdomo on 05-15-2023 Basophils/100 WBC (Bld) 1.5 % . [facility] Eosinophils Auto (Bld) [#/Vo l]Ordered By: Ricky Perdomo on 05-15-2023 Eosinophils (Bld) [#/Vol] 0.1 10*3/uL 0.0-0.45 [facility] Eosinophils/100 WBC Auto (Bl d)Ordered By: Ricky Perdomo on 05-15-2023 Eosinophils/100 WBC (Bld) 1.8 % . [facility] Erythrocyte distribution wid th Auto (RBC) [Ratio]Ordered By: Ricky Perdomo on 05-15-2023 Erythrocyte distribution width (RBC) [Ratio] 25.6 % 11.9-15.3 [facility] Hematocrit Auto (Bld) [Volum e fraction]Ordered By: Ricky Perdomo on 05-15-2023 Hematocrit (Bld) [Volume fraction] 28.8 % 34.0-46.4 [facility] Hemoglobin [Mass/volume] in BloodOrdered By: Ricky Perdomo on 05-15-2023 Hemoglobin (Bld) [Mass/Vol] 8.7 g/dL 11.8-15.4 [facility] Hypochromia LM Ql (Bld)Order ed By: Ricky Perdomo on 05-15-2023 Hypochromia Ql (Bld) Moderate [facility] Leukocytes [#/volume] correc eugenia for nucleated erythrocytes in Blood by Automated counOrdered By: Ricky Perdomo on 05-15-2023 WBC corrected for nucl RBC Auto (Bld) [#/Vol] 4.4 10*3/uL 3.8-11.6 [facility] Lymphocytes Auto (Bld) [#/Vo l]Ordered By: Ricky Perdomo on 05-15-2023 Lymphocytes (Bld) [#/Vol] 0.7 10*3/uL 1.00-4.8 [facility] Lymphocytes/100 WBC Auto (Bl d)Ordered By: Ricky Perdomo on 05-15-2023 Lymphocytes/100 WBC (Bld) 16.9 % . [facility] MCH Auto (RBC) [Entitic mass ]Ordered By: Ricky Perdomo on 05-15-2023 MCH (RBC) [Entitic mass] 28.1 pg 24.7-34.3 [facility] MCHC Auto (RBC) [Mass/Vol]Or dered By: Ricky Perdomo on 05-15-2023 MCHC (RBC) [Mass/Vol] 30.2 g/dL 32.0-35.0 [facility] MCV Auto (RBC) [Entitic vol] Ordered By: Ricky Perdomo on 05-15-2023 MCV (RBC) [Entitic vol] 93.1 fL 80-100 [facility] Monocytes Auto (Bld) [#/Vol] Ordered By: Ricky Perdomo on 05-15-2023 Monocytes (Bld) [#/Vol] 0.3 10*3/uL 0.0-0.8 [facility] Monocytes/100 WBC Auto (Bld) Ordered By: Ricky Perdomo on 05-15-2023 Monocytes/100 WBC (Bld) 6.2 % . [facility] Neutrophils Auto (Bld) [#/Vo l]Ordered By: Ricky Perdomo on 05-15-2023 Neutrophils (Bld) [#/Vol] 3.2 10*3/uL 1.8-7.7 [facility] Neutrophils/100 WBC Auto (Bl d)Ordered By: Ricky Perdomo on 05-15-2023 Neutrophils/100 WBC (Bld) 73.6 % . [facility] Nucleated erythrocytes [Pres ence] in Blood by Automated countOrdered By: Ricky Perdomo on 05-15-2023 Nucleated RBC Auto Ql (Bld) 0.2 /100{WBC} 0-0.5 [facility] Ovalocyte detectionOrdered B y: Ricky Perdomo on 05-15-2023 Ovalocytes LM Ql (Bld) Slight [facility] Platelet adequacy [Presence] in Blood by Light microscopyOrdered By: Ricky Perdomo on 05-15-2023 Platelets LM Ql (Bld) Normal Normal [facility] Platelet mean volume Auto (B ld) [Entitic vol]Ordered By: Ricky Perdomo on 05-15-2023 Platelet mean volume (Bld) [Entitic vol] 8.6 fL 6.3-10.7 [facility] Platelet morphology finding [Identifier] in BloodOrdered By: Ricky Perdomo on 05-15-2023 Platelet morphology finding Nom (Bld) Normal Normal [facility] Platelets Auto (Bld) [#/Vol] Ordered By: Ricky Perdomo on 05-15-2023 Platelets (Bld) [#/Vol] 231 10*3/uL 150-450 [facility] Poikilocytosis [Presence] in Blood by Light microscopyOrdered By: Ricky Perdomo on 05-15-2023 Poikilocytosis LM Ql (Bld) Moderate [facility] Polychromasia [Presence] in Blood by Light microscopyOrdered By: Ricky Perdomo on 05-15-2023 Polychromasia LM Ql (Bld) Slight [facility] RBC Auto (Bld) [#/Vol]Ordere d By: Ricky Perdomo on 05-15-2023 RBC (Bld) [#/Vol] 3.09 10*6/uL 3.60-5.00 [facility] RBC morphologyOrdered By: Carissa Perdomo on 05-15-2023 RBC morphology finding Nom (Bld) N/A [facility] Teardrop cell detectionOrder ed By: Ricky Perdomo on 05-15-2023 Dacrocytes LM Ql (Bld) Slight Fi [facility] WBC Auto (Bld) [#/Vol]Ordere d By: Ricky Perdomo on 05-15-2023 WBC (Bld) [#/Vol] 4.4 10*3/uL 3.8-11.6 [facility] CBC AUTO DIFFon 11-05-2022 BASO # 0.1 103/ul Normal 0.0-0.1 [facility] Comment on above: Performed By: #### C BC #### [facility] [address] [place] [address] Dr. Sherry Quezada Basophils/100 WBC (Bld) 1.4 % Normal 0.2-2.0 [facility] Comment on above: Performed By: #### C BC #### [facility] [address] [place] [address] Dr. Sherry Quezada EO # 0.1 103/ul Normal 0.0-0.7 [facility] Comment on above: Performed By: #### C BC #### [facility] [address] [address] [address] Sherry Quezada Eosinophils/100 WBC (Bld) 2.5 % Normal 0.9-7.0 [facility] Comment on above: Performed By: #### C BC #### [facility] [address] [place] [address] Dr. Shrery Quezada Erythrocyte distribution width (RBC) [Ratio] 16.5 % Critically high 11.0-15.0 [facility] Comment on above: Performed By: #### C BC #### [facility] [address] [place] [address] Dr. Sherry Quezada Hematocrit (Bld) [Volume fraction] 32.1 % Critically low 36.0-48.0 [facility] Comment on above: Performed By: #### C BC #### [facility] [address] [place] [address] Dr. Sherry Quezada Hemoglobin (Bld) [Mass/Vol] 9.3 g/dL Critically low 12.0-16.0 [facility] Comment on above: Performed By: #### C BC #### [facility] [address] [place] [address] Dr. Sherry Quezada IG # 0.01 10e3/ul Normal 0.00-0.03 [facility] Comment on above: Performed By: #### C BC #### [facility] [address] [place] [address] Dr. Sherry Quezada IG % 0.2 % Normal 0.0-0.5 [facility] Comment on above: Performed By: #### C BC #### [facility] [address] [place] [address] Dr. Sherry Quezada LYMPH # 1.3 103/ul Normal 1.2-3.8 [facility] Comment on above: Performed By: #### C BC #### [facility] [address] [place] [address] Dr. Sherry Quezada Lymphocytes/100 WBC (Bld) 22.2 % Normal 20.5-60.0 [facility] Comment on above: Performed By: #### C BC #### [facility] [address] [place] [address] Dr. Sherry Quezada MANUAL DIFF REQ NO Normal [facility] Comment on above: Performed By: #### C BC #### [facility] [address] [place] [address] Dr. Sherry Quezada MCH (RBC) [Entitic mass] 24.4 pg Critically low 26.7-34.0 [facility] Comment on above: Performed By: #### C BC #### [facility] [address] [place] [address] Dr. Sherry Quezada MCHC (RBC) [Mass/Vol] 29.0 g/dL Critically low 29.9-35.2 [facility] Comment on above: Performed By: #### C BC #### [facility] [address] [place] [address] Dr. Sherry Quezada MCV (RBC) [Entitic vol] 84.3 fL Normal 81.0-99.0 [facility] Comment on above: Performed By: #### C BC #### [facility] [address] [place] [address] Dr. Sherry Quezada MONO # 0.5 103/ul Normal 0.3-0.8 [facility] Comment on above: Performed By: #### C BC #### [facility] [address] [place] [address] Dr. Sherry Quezada Monocytes/100 WBC (Bld) 9.1 % Normal 1.7-12.0 [facility] Comment on above: Performed By: #### C BC #### [facility] [address] [place] [address] Dr. Sherry Quezada NEUT # 3.7 103/ul Normal 1.4-6.5 [facility] Comment on above: Performed By: #### C BC #### [facility] [address] [place] [address] Dr. Sherry Quezada Neutrophils/100 WBC (Bld) 64.6 % Normal 43.0-75.0 [facility] Comment on above: Performed By: #### C BC #### [facility] [address] [place] [address] Dr. Sherry Quezada Platelet mean volume (Bld) [Entitic vol] 11.0 fL Normal 9.5-13.5 [facility] Comment on above: Performed By: #### C BC #### [facility] [address] [place] [address] Dr. Sherry Quezada PLT 261 103/ul Normal 150-450 [facility] Comment on above: Performed By: #### C BC #### [facility] [address] [place] [address] Dr. Sherry Quezada RBC 3.81 106/ul Critically low 4.20-5.40 [facility] Comment on above: Performed By: #### C BC #### [facility] [address] [place] [address] Dr. Sherry Quezada WBC 5.7 103/ul Normal 4.0-11.0 [facility] Comment on above: Performed By: #### C BC #### [facility] [address] [place] [address] Dr. Sherry Quezada FERRITINon 11-05-2022 Ferritin [Mass/Vol] 10.0 ng/mL Normal 8.0-252.0 [facility] Comment on above: Performed By: #### C BC #### [facility] [address] [place] [address] Dr. Sherry Quezada IRON AND TIBCon 11-05-2022 % SATURATION 5.2 % Normal [facility] Comment on above: Performed By: #### C BC #### [facility] [address] [place] [address] Dr. Sherry Quezada Iron [Mass/Vol] 20.0 ug/dL Critically low 50.0-170.0 [facility] Comment on above: Performed By: #### C BC #### [facility] [address] [place] [address] Dr. Sherry Quezada TIBC DIRECT 388.0 ug/dL Normal 250.0-450. 0 [facility] Comment on above: Performed By: #### C BC #### [facility] [address] [place] [address] Dr. Sherry Quezada PRBC LEUKOREDUCEDon 10-10-19 23 ABO and Rh group Nom (Bld) Cross Match Result Compatible Unit Blood Type A Pos Unit Number [id number] Status Information Transfused Product ID Red Blood Cells Product Code [id number] Cross Match Result Compatible Blood Bank Notes CALLED SHAHLA LUCAS ON [facility] AT [address] Unit Blood Type A Pos Unit Number [id number] Status Information Transfused Product ID Red Blood Cells Product Code [id number] Normal [facility] Comment on above: Performed By: #### T SH #### [facility] [address] [place] [address] Dr. Sherry Quezada ABO and Rh group Nom (Bld) Cross Match Result Compatible Unit Blood Type A Pos Unit Number [id number] Status Information Transfused Product ID Red Blood Cells Product Code [id number] Cross Match Result Compatible Unit Blood Type A Pos Unit Number [id number] Status Information Transfused Product ID Red Blood Cells Product Code [id number] Normal [facility] Comment on above: Performed By: #### T SH #### [facility] [address] [place] [address] Dr. Sherry Quezada CBC AUTO DIFFon 10-02-2022 BASO # 0.0 103/ul Normal 0.0-0.1 [facility] Comment on above: Performed By: #### T SH #### [facility] [address] [place] [address] Dr. Sherry Quezada Basophils/100 WBC (Bld) 0.7 % Normal 0.2-2.0 [facility] Comment on above: Performed By: #### T SH #### [facility] [address] [place] [address] Dr. hSerry Quezada EO # 0.2 103/ul Normal 0.0-0.7 [facility] Comment on above: Performed By: #### T SH #### [facility] [address] [place] [address] Dr. Sherry Quezada Eosinophils/100 WBC (Bld) 2.5 % Normal 0.9-7.0 [facility] Comment on above: Performed By: #### T SH #### [facility] [address] [place] [address] Dr. Sherry Quezada Erythrocyte distribution width (RBC) [Ratio] 16.4 % Critically high 11.0-15.0 [facility] Comment on above: Performed By: #### T SH #### [facility] [address] [place] [address] Dr. Sherry Quezada Hematocrit (Bld) [Volume fraction] 31.3 % Critically low 36.0-48.0 [facility] Comment on above: Performed By: #### T SH #### [facility] [address] [place] [address] Dr. Sherry Quezada Hemoglobin (Bld) [Mass/Vol] 9.9 g/dL Critically low 12.0-16.0 [facility] Comment on above: Performed By: #### T SH #### [facility] [address] [place] [address] Dr. Sherry Quezada IG # 0.02 10e3/ul Normal 0.00-0.03 [facility] Comment on above: Performed By: #### T SH #### [facility] [address] [place] [address] Dr. Sherry Quezada IG % 0.3 % Normal 0.0-0.5 [facility] Comment on above: Performed By: #### T SH #### [facility] [address] [place] [address] Dr. Sherry Quezada LYMPH # 1.1 103/ul Critically low 1.2-3.8 [facility] Comment on above: Performed By: #### T SH #### [facility] [address] [place] [address] Dr. Sherry Quezada Lymphocytes/100 WBC (Bld) 17.9 % Critically low 20.5-60.0 [facility] Comment on above: Performed By: #### T SH #### [facility] [address] [place] [address] Dr. Sherry Quezada MANUAL DIFF REQ NO Normal [facility] Comment on above: Performed By: #### T SH #### [facility] [address] [place] [address] Dr. Sherry Quezada MCH (RBC) [Entitic mass] 27.1 pg Normal 26.7-34.0 [facility] Comment on above: Performed By: #### T SH #### [facility] [address] [place] [address] Dr. Sherry Quezada MCHC (RBC) [Mass/Vol] 31.6 g/dL Normal 29.9-35.2 [facility] Comment on above: Performed By: #### T SH #### [facility] [address] [place] [address] Dr. Sherry Quezada MCV (RBC) [Entitic vol] 85.8 fL Normal 81.0-99.0 [facility] Comment on above: Performed By: #### T SH #### [facility] [address] [place] [address] Dr. Sherry Quezada MONO # 0.6 103/ul Normal 0.3-0.8 [facility] Comment on above: Performed By: #### T SH #### [facility] [address] [place] [address] Dr. Sherry Quezada Monocytes/100 WBC (Bld) 9.4 % Normal 1.7-12.0 [facility] Comment on above: Performed By: #### T SH #### [facility] [address] [place] [address] Dr. Sherry Quezada NEUT # 4.1 103/ul Normal 1.4-6.5 [facility] Comment on above: Performed By: #### T SH #### [facility] [address] [place] [address] Dr. Sherry Quezada Neutrophils/100 WBC (Bld) 69.2 % Normal 43.0-75.0 [facility] Comment on above: Performed By: #### T SH #### [facility] [address] [place] [address] Dr. Sherry Quezada Platelet mean volume (Bld) [Entitic vol] 10.7 fL Normal 9.5-13.5 [facility] Comment on above: Performed By: #### T SH #### [facility] [address] [place] [address] Dr. Sherry Quezada PLT 220 103/ul Normal 150-450 [facility] Comment on above: Performed By: #### T SH #### [facility] [address] [place] [address] Dr. Sherry Quezada RBC 3.65 106/ul Critically low 4.20-5.40 [facility] Comment on above: Performed By: #### T SH #### [facility] [address] [place] [address] Dr. Sherry Quezada WBC 5.9 103/ul Normal 4.0-11.0 [facility] Comment on above: Performed By: #### T #### [facility] [address] [place] [address] Dr. Sherry Quezada HEMOGLOBIN AND HEMATOCRITon 10-02-2022 Hematocrit (Bld) [Volume fraction] 30.6 % Critically low 36.0-48.0 [facility] Comment on above: Performed By: #### C BC #### [facility] [address] [place] [address] Dr. Sherry Quezada Hemoglobin (Bld) [Mass/Vol] 9.9 g/dL Critically low 12.0-16.0 [facility] Comment on above: Performed By: #### C BC #### [facility] [address] [place] [address] Dr. Sherry Quezada MAGNESIUMon 10-02-2022 Magnesium [Mass/Vol] 1.9 mg/dL Normal 1.8-2.4 [facility] Comment on above: Performed By: #### C VDTBH #### [facility] [address] [place] [address] Dr. Sherry Quezada PROF 14(COMP METB)on 023 Albumin [Mass/Vol] 2.7 g/dL Critically low 3.4-5.0 [facility] Comment on above: Performed By: #### C VDTBH #### [facility] [address] [place] [address] Dr. Sherry Quezada Albumin/Globulin [Mass ratio] 1.0 {ratio} Normal [facility] Comment on above: Performed By: #### C VDTBH #### [facility] [address] [place] [address] Dr. Sherry Quezada ALP [Catalytic activity/Vol] 74 U/L Normal 46-116 [facility] Comment on above: Performed By: #### C VDTBH #### [facility] [address] [place] [address] Dr. Sherry Quezada ALT [Catalytic activity/Vol] 13 U/L Critically low 14-59 [facility] Comment on above: Performed By: #### C VDTBH #### [facility] [address] [address] [address] Sherry Quezada Anion gap [Moles/Vol] 9.6 mmol/L Normal [facility] Comment on above: Performed By: #### C VDTBH #### [facility] [address] [address] [address] Sherry Quezada AST [Catalytic activity/Vol] 11 U/L Critically low 15-37 [facility] Comment on above: Performed By: #### C VDTBH #### [facility] [address] [place] [address] Dr. Sherry Quezada Bilirubin [Mass/Vol] 1.2 mg/dL Critically high 0.2-1.0 [facility] Comment on above: Performed By: #### C VDTBH #### [facility] [address] [place] [address] Dr. Sherry Quezada Calcium [Mass/Vol] 8.3 mg/dL Critically low 8.5-10.1 [facility] Comment on above: Performed By: #### C VDTBH #### [facility] [address] [place] [address] Dr. Sherry Quezada Chloride [Moles/Vol] 109 mmol/L Critically high 98-107 [facility] Comment on above: Performed By: #### C VDTBH #### [facility] [address] [place] [address] Dr. Sherry Quezada CO2 [Moles/Vol] 26.4 mmol/L Normal 21.0-32.0 [facility] Comment on above: Performed By: #### C VDTBH #### [facility] [address] [place] [address] Dr. Sherry Quezada Creatinine [Mass/Vol] 0.81 mg/dL Normal 0.55-1.02 [facility] Comment on above: Performed By: #### C VDTBH #### [facility] [address] [place] [address] Dr. Sherry Quezada EGFR-AF KAZAKH >60 Normal >=60 [facility] Comment on above: Performed By: #### C VDTBH #### [facility] [address] [place] [address] Dr. Sherry Quezada EGFR-NON AF KAZAKH >60 Normal >=60 [facility] Comment on above: Performed By: #### C VDTBH #### [facility] [address] [place] [address] Dr. Sherry Quezada Globulin (S) [Mass/Vol] 2.7 g/dL Normal [facility] Comment on above: Performed By: #### C VDTBH #### [facility] [address] [place] [address] Dr. Sherry Quezada Glucose [Mass/Vol] 96 mg/dL Normal 74-106 [facility] Comment on above: Performed By: #### C VDTBH #### [facility] [address] [place] [address] Dr. Sherry Quezada Potassium [Moles/Vol] 4.0 mmol/L Normal 3.5-5.1 [facility] Comment on above: Performed By: #### C VDTBH #### [facility] [address] [place] [address] Dr. Sherry Quezada Protein [Mass/Vol] 5.4 g/dL Critically low 6.4-8.2 [facility] Comment on above: Performed By: #### C VDTBH #### [facility] [address] [place] [address] Dr. Sherry Quezada Sodium [Moles/Vol] 141 mmol/L Normal 136-145 [facility] Comment on above: Performed By: #### C VDTBH #### [facility] [address] [place] [address] Dr. Sherry Quezada Urea nitrogen [Mass/Vol] 16.0 mg/dL Normal 7.0-18.0 [facility] Comment on above: Performed By: #### C VDTBH #### [facility] [address] [place] [address] Dr. Sherry Quezada Urea nitrogen/Creatinine [Mass ratio] 19.8 mg/mg Normal [facility] Comment on above: Performed By: #### C VDTBH #### [facility] [address] [place] [address] Dr. Sherry Quezada ER URINE PROFILEon 3 Bilirubin Ql (U) Negative Normal NEGATIVE [facility] Comment on above: Performed By: #### T SH #### [facility] [address] [place] [address] Dr. Sherry Quezada Clarity (U) CLEAR Normal CLEAR [facility] Comment on above: Performed By: #### T SH #### [facility] [address] [place] [address] Dr. Sherry Quezada Color (U) LT. YELLOW Normal YELLOW [facility] Comment on above: Performed By: #### T SH #### [facility] [address] [place] [address] Dr. Sherry RAMOS A micrscopic examina tion will be performed if indicated. Normal [facility] Comment on above: Performed By: #### T SH #### [facility] [address] [place] [address] Dr. Sherry Quezada Glucose Ql (U) Negative Normal NEGATIVE [facility] Comment on above: Performed By: #### T SH #### [facility] [address] [place] [address] Dr. Sherry Quezada Hemoglobin Ql (U) Negative Normal NEGATIVE [facility] Comment on above: Performed By: #### T SH #### [facility] [address] [place] [address] Dr. Sherry Quezada Ketones Ql (U) Negative Normal NEGATIVE [facility] Comment on above: Performed By: #### T SH #### [facility] [address] [place] [address] Dr. Sherry Quezada LEUKOCYTES Negative Normal NEGATIVE [facility] Comment on above: Performed By: #### T SH #### [facility] [address] [place] [address] Dr. Sherry Quezada Nitrite Ql (U) Negative Normal NEGATIVE [facility] Comment on above: Performed By: #### T SH #### [facility] [address] [place] [address] Dr. Sherry Quezada pH (U) 5.5 [pH] Normal 5-9 [facility] Comment on above: Performed By: #### T SH #### [facility] [address] [place] [address] Dr. Sherry Quezada SPEC GRAVITY <=1.005 Abnormal 1.005-<=1. 025 [facility] Comment on above: Performed By: #### T SH #### [facility] [address] [place] [address] Dr. Sherry Quezada UA PROTEIN Negative Normal NEGATIVE/ TRACE [facility] Comment on above: Performed By: #### T SH #### [facility] [address] [place] [address] Dr. Sherry Quezada UR MICRO IND NOT INDICATED Normal [facility] Comment on above: Performed By: #### T SH #### [facility] [address] [place] [address] Dr. Sherry Quezada Urobilinogen Qn (U) 0.2 {Carlota'U}/dL Normal 0.2 - 1. 0 [facility] Comment on above: Performed By: #### T SH #### [facility] [address] [place] [address] Dr. Sherry Quezada HEMOGLOBIN AND HEMATOCRITon 10-01-2022 Hematocrit (Bld) [Volume fraction] 31.5 % Critically low 36.0-48.0 [facility] Comment on above: Performed By: #### C BC #### [facility] [address] [place] [address] Dr. Sherry Quezada Hemoglobin (Bld) [Mass/Vol] 10.1 g/dL Critically low 12.0-16.0 [facility] Comment on above: Performed By: #### C BC #### [facility] [address] [place] [address] Dr. Sherry Quezada Hematocrit (Bld) [Volume fraction] 27.0 % Critically low 36.0-48.0 [facility] Comment on above: Performed By: #### C BC #### [facility] [address] [place] [address] Dr. Sherry Quezada Hemoglobin (Bld) [Mass/Vol] 8.5 g/dL Critically low 12.0-16.0 [facility] Comment on above: Performed By: #### C BC #### [facility] [address] [place] [address] Dr. Sherry Quezada Hematocrit (Bld) [Volume fraction] 24.7 % Critically low 36.0-48.0 [facility] Comment on above: Performed By: #### C BC #### [facility] [address] [place] [address] Dr. Sherry Quezada Hemoglobin (Bld) [Mass/Vol] 7.6 g/dL Critically low 12.0-16.0 [facility] Comment on above: Performed By: #### C BC #### [facility] [address] [place] [address] Dr. Sherry Quezada MAGNESIUMon 10-01-2022 Magnesium [Mass/Vol] 1.7 mg/dL Critically low 1.8-2.4 [facility] Comment on above: Performed By: #### C VDTBH #### [facility] [address] [place] [address] Dr. Sherry Quezada PROF 14(COMP METB)on 023 Albumin [Mass/Vol] 2.6 g/dL Critically low 3.4-5.0 [facility] Comment on above: Performed By: #### C VDTBH #### [facility] [address] [place] [address] Dr. Sherry Quezada Albumin/Globulin [Mass ratio] 1.0 {ratio} Normal [facility] Comment on above: Performed By: #### C VDTBH #### [facility] [address] [place] [address] Dr. Sherry Quezada ALP [Catalytic activity/Vol] 81 U/L Normal 46-116 [facility] Comment on above: Performed By: #### C VDTBH #### [facility] [address] [place] [address] Dr. Sherry Quezada ALT [Catalytic activity/Vol] 12 U/L Critically low 14-59 [facility] Comment on above: Performed By: #### C VDTBH #### [facility] [address] [address] [address] Sherry Quezada Anion gap [Moles/Vol] 9.3 mmol/L Normal [facility] Comment on above: Performed By: #### C VDTBH #### [facility] [address] [place] [address] Dr. Sherry Quezada AST [Catalytic activity/Vol] 14 U/L Critically low 15-37 [facility] Comment on above: Performed By: #### C VDTBH #### [facility] [address] [address] [address] Sherry Quezada Bilirubin [Mass/Vol] 1.7 mg/dL Critically high 0.2-1.0 [facility] Comment on above: Performed By: #### C VDTBH #### [facility] [address] [place] [address] Dr. Sherry Quezada Calcium [Mass/Vol] 7.8 mg/dL Critically low 8.5-10.1 [facility] Comment on above: Performed By: #### C VDTBH #### [facility] [address] [place] [address] Dr. Sherry Quezada Chloride [Moles/Vol] 108 mmol/L Critically high 98-107 [facility] Comment on above: Performed By: #### C VDTBH #### [facility] [address] [place] [address] Dr. Sherry Quezada CO2 [Moles/Vol] 26.8 mmol/L Normal 21.0-32.0 [facility] Comment on above: Performed By: #### C VDTBH #### [facility] [address] [place] [address] Dr. Sherry Quezada Creatinine [Mass/Vol] 0.74 mg/dL Normal 0.55-1.02 [facility] Comment on above: Performed By: #### C VDTBH #### [facility] [address] [place] [address] Dr. Sherry Quezada EGFR-AF KAZAKH >60 Normal >=60 [facility] Comment on above: Performed By: #### C VDTBH #### [facility] [address] [place] [address] Dr. Sherry Quezada EGFR-NON AF KAZAKH >60 Normal >=60 [facility] Comment on above: Performed By: #### C VDTBH #### [facility] [address] [address] [address] Sherry Quezada Globulin (S) [Mass/Vol] 2.6 g/dL Normal [facility] Comment on above: Performed By: #### C VDTBH #### [facility] [address] [address] [address] Sherry Quezada Glucose [Mass/Vol] 88 mg/dL Normal 74-106 [facility] Comment on above: Performed By: #### C VDTBH #### [facility] [address] [place] [address] Dr. Sherry Quezada Potassium [Moles/Vol] 4.1 mmol/L Normal 3.5-5.1 [facility] Comment on above: Performed By: #### C VDTBH #### [facility] [address] [place] [address] Dr. Sherry Quezada Protein [Mass/Vol] 5.2 g/dL Critically low 6.4-8.2 [facility] Comment on above: Performed By: #### C VDTBH #### [facility] [address] [place] [address] Dr. Sherry Quezada Sodium [Moles/Vol] 140 mmol/L Normal 136-145 [facility] Comment on above: Performed By: #### C VDTBH #### [facility] [address] [place] [address] Dr. Sherry Quezada Urea nitrogen [Mass/Vol] 13.0 mg/dL Normal 7.0-18.0 [facility] Comment on above: Performed By: #### C VDTBH #### [facility] [address] [place] [address] Dr. Sherry Quezada Urea nitrogen/Creatinine [Mass ratio] 17.6 mg/mg Normal [facility] Comment on above: Performed By: #### C VDTBH #### [facility] [address] [place], [place] [id number] Dr. Sherry Quezada CBC AUTO DIFFon 09-30-2022 BASO # 0.0 103/ul Normal 0.0-0.1 [facility] Comment on above: Performed By: #### C BC #### [facility] [address] [place] [address] Dr. Sherry Quezada Basophils/100 WBC (Bld) 0.5 % Normal 0.2-2.0 [facility] Comment on above: Performed By: #### C BC #### [facility] [address] [place] [address] Dr. Sherry Quezada EO # 0.0 103/ul Normal 0.0-0.7 [facility] Comment on above: Performed By: #### C BC #### [facility] [address] [place] [address] Dr. Sherry Quezada Eosinophils/100 WBC (Bld) 0.2 % Critically low 0.9-7.0 [facility] Comment on above: Performed By: #### C BC #### [facility] [address] [place] [address] Dr. Sherry Quezada Erythrocyte distribution width (RBC) [Ratio] 17.5 % Critically high 11.0-15.0 [facility] Comment on above: Performed By: #### C BC #### [facility] [address] [place] [address] Dr. Sherry Quezada Hematocrit (Bld) [Volume fraction] 21.5 % Critically low 36.0-48.0 [facility] Comment on above: Performed By: #### C BC #### [facility] [address] [place] [address] Dr. Sherry Quezada Hemoglobin (Bld) [Mass/Vol] 6.3 g/dL Critically low 12.0-16.0 [facility] Comment on above: Performed By: #### C BC #### [facility] [address] [place] [address] Dr. Sherry Quezada IG # 0.06 10e3/ul Critically high 0.00-0.03 [facility] Comment on above: Performed By: #### C BC #### [facility] [address] [place] [address] Dr. Sherry Quezada IG % 0.7 % Critically high 0.0-0.5 [facility] Comment on above: Performed By: #### C BC #### [facility] [address] [place] [address] Dr. Sherry Quezada LYMPH # 1.0 103/ul Critically low 1.2-3.8 [facility] Comment on above: Performed By: #### C BC #### [facility] [address] [place] [address] Dr. Sherry Quezada Lymphocytes/100 WBC (Bld) 11.3 % Critically low 20.5-60.0 [facility] Comment on above: Performed By: #### C BC #### [facility] [address] [place] [address] Dr. Sherry Quezada MANUAL DIFF REQ NO Normal [facility] Comment on above: Performed By: #### C BC #### [facility] [address] [place] [address] Dr. Sherry Quezada MCH (RBC) [Entitic mass] 24.6 pg Critically low 26.7-34.0 [facility] Comment on above: Performed By: #### C BC #### [facility] [address] [place] [address] Dr. Sherry Quezada MCHC (RBC) [Mass/Vol] 29.3 g/dL Critically low 29.9-35.2 [facility] Comment on above: Performed By: #### C BC #### [facility] [address] [place] [address] Dr. Sherry Quezada MCV (RBC) [Entitic vol] 84.0 fL Normal 81.0-99.0 [facility] Comment on above: Performed By: #### C BC #### [facility] [address] [place] [address] Dr. Sherry Quezada MONO # 0.5 103/ul Normal 0.3-0.8 [facility] Comment on above: Performed By: #### C BC #### [facility] [address] [place] [address] Dr. Sherry Quezada Monocytes/100 WBC (Bld) 5.4 % Normal 1.7-12.0 [facility] Comment on above: Performed By: #### C BC #### [facility] [address] [place] [address] Dr. Sherry Quezada NEUT # 7.2 103/ul Critically high 1.4-6.5 [facility] Comment on above: Performed By: #### C BC #### [facility] [address] [place] [address] Dr. Sherry Quezada Neutrophils/100 WBC (Bld) 81.9 % Critically high 43.0-75.0 [facility] Comment on above: Performed By: #### C BC #### [facility] [address] [place] [address] Dr. Sherry uQezada Platelet mean volume (Bld) [Entitic vol] 11.2 fL Normal 9.5-13.5 [facility] Comment on above: Performed By: #### C BC #### [facility] [address] [place] [address] Dr. Sherry Quezada PLT 325 103/ul Normal 150-450 [facility] Comment on above: Performed By: #### C BC #### [facility] [address] [place] [address] Dr. Sherry Quezada RBC 2.56 106/ul Critically low 4.20-5.40 [facility] Comment on above: Performed By: #### C BC #### [facility] [address] [place] [address] Dr. Sherry Quezada WBC 8.8 103/ul Normal 4.0-11.0 [facility] Comment on above: Performed By: #### C BC #### [facility] [address] [place] [address] ABD/PELV W CONon 09-30-19 CT ABD/PELV W CON EXAMINATION: CT ABD/ PELV W CON HISTORY: Gastrointestinal hemorrhage COMPARISON: None. [...] SARAI LUCAS Date: 2022-09-30 20:50 Normal [facility] Covid-19 PCR (CVDTBH)on 09-06 SARS-CoV-2 (COVID-19) RNA MELITON+probe Ql (Unsp spec) Not detected Normal NOT DETECTED [facility] Comment on above: Result Comment: When [...] for this test is supported by the [employer] Dean of Health and Human Service's declaration that [...] used). Performed By: #### C VDTBH #### [facility] [address] [place] [address] Dr. Sherry Quezada IRON AND TIBCon 09-30-2022 % SATURATION 25.8 % Normal [facility] Comment on above: Performed By: #### C BC #### [facility] [address] [place] [address] Dr. Sherry Quezada Iron [Mass/Vol] 99.0 ug/dL Normal 50.0-170.0 [facility] Comment on above: Performed By: #### C BC #### [facility] [address] [place] [address] Dr. Sherry Quezada TIBC DIRECT 384.0 ug/dL Normal 250.0-450. 0 [facility] Comment on above: Performed By: #### C BC #### [facility] [address] [place] [address] Dr. Sherry Quezada OCC BLD IMMUNO SCREENon 09-06 OCCULT BLOOD Positive Abnormal NEGATIVE [facility] Comment on above: Performed By: #### C BC #### [facility] [address] [place] [address] Dr. Sherry Quezada PROF CHEM 8 (BAS METB)on Anion gap [Moles/Vol] 17.6 mmol/L Normal [facility] Comment on above: Performed By: #### C VDTBH #### [facility] [address] [place] [address] Dr. Sherry Quezada Calcium [Mass/Vol] 8.7 mg/dL Normal 8.5-10.1 [facility] Comment on above: Performed By: #### C VDTBH #### [facility] [address] [place] [address] Dr. Sherry Quezada Chloride [Moles/Vol] 104 mmol/L Normal 98-107 [facility] Comment on above: Performed By: #### C VDTBH #### [facility] [address] [address] [address] Sherry Quezada CO2 [Moles/Vol] 20.3 mmol/L Critically low 21.0-32.0 [facility] Comment on above: Performed By: #### C VDTBH #### [facility] [address] [address] [address] Sherry Quezada Creatinine [Mass/Vol] 0.91 mg/dL Normal 0.55-1.02 [facility] Comment on above: Performed By: #### C VDTBH #### [facility] [address] [address] [address] Sherry Quezada EGFR-AF KAZAKH >60 Normal >=60 [facility] Comment on above: Performed By: #### C VDTBH #### [facility] [address] [address] [address] Sherry Quezada EGFR-NON AF KAZAKH >60 Normal >=60 [facility] Comment on above: Performed By: #### C VDTBH #### [facility] [address] [address] [address] Sherry Quezada Glucose [Mass/Vol] 124 mg/dL Critically high 74-106 [facility] Comment on above: Performed By: #### C VDTBH #### [facility] [address] [address] [address] Sherry Quezada Potassium [Moles/Vol] 3.9 mmol/L Normal 3.5-5.1 [facility] Comment on above: Performed By: #### C VDTBH #### [facility] [address] [address] [address] Sherry Quezada Sodium [Moles/Vol] 138 mmol/L Normal 136-145 [facility] Comment on above: Performed By: #### C VDTBH #### [facility] [address] [address] [address] Sherry Quezada Urea nitrogen [Mass/Vol] 15.0 mg/dL Normal 7.0-18.0 [facility] Comment on above: Performed By: #### C VDTBH #### [facility] [address] [place] [address] Dr. Sherry Quezada Urea nitrogen/Creatinine [Mass ratio] 16.5 mg/mg Normal [facility] Comment on above: Performed By: #### C VDTBH #### [facility] [address] [place] [address] Dr. Sherry Quezada TYPE AND SCREENon 09-30-2022 TYPE AND SCREEN Negative Normal [facility] Comment on above: Performed By: #### T SH #### [facility] [address] [place] [address] Dr. Sherry Quezada CBC AUTO DIFFon 08-06-2022 BASO # 0.1 103/ul Normal 0.0-0.1 [facility] Comment on above: Performed By: #### C BC #### [facility] [address] [place] [address] Dr. Sherry Quezada Basophils/100 WBC (Bld) 1.1 % Normal 0.2-2.0 [facility] Comment on above: Performed By: #### C BC #### [facility] [address] [place] [address] Dr. Sherry Quezada EO # 0.1 103/ul Normal 0.0-0.7 [facility] Comment on above: Performed By: #### C BC #### [facility] [address] [place] [address] Dr. Sherry Quezada Eosinophils/100 WBC (Bld) 1.6 % Normal 0.9-7.0 [facility] Comment on above: Performed By: #### C BC #### [facility] [address] [place] [address] Dr. Sherry Quezada Erythrocyte distribution width (RBC) [Ratio] 14.9 % Normal 11.0-15.0 [facility] Comment on above: Performed By: #### C BC #### [facility] [address] [place] [address] Dr. Sherry Quezada Hematocrit (Bld) [Volume fraction] 35.2 % Critically low 36.0-48.0 [facility] Comment on above: Performed By: #### C BC #### [facility] [address] [place] [address] Dr. Sherry Quezada Hemoglobin (Bld) [Mass/Vol] 10.7 g/dL Critically low 12.0-16.0 [facility] Comment on above: Performed By: #### C BC #### [facility] [address] [place] [address] Dr. Sherry Quezada IG # 0.03 10e3/ul Normal 0.00-0.03 [facility] Comment on above: Performed By: #### C BC #### [facility] [address] [place] [address] Dr. Sherry Quezada IG % 0.4 % Normal 0.0-0.5 [facility] Comment on above: Performed By: #### C BC #### [facility] [address] [place] [address] Dr. Sherry Quezada LYMPH # 1.6 103/ul Normal 1.2-3.8 [facility] Comment on above: Performed By: #### C BC #### [facility] [address] [place] [address] Dr. Sherry Quezada Lymphocytes/100 WBC (Bld) 19.5 % Critically low 20.5-60.0 [facility] Comment on above: Performed By: #### C BC #### [facility] [address] [place] [address] Dr. Sherry Quezada MANUAL DIFF REQ NO Normal [facility] Comment on above: Performed By: #### C BC #### [facility] [address] [place] [address] Dr. Sherry Quezada MCH (RBC) [Entitic mass] 28.6 pg Normal 26.7-34.0 [facility] Comment on above: Performed By: #### C BC #### [facility] [address] [place] [address] Dr. Sherry Quezada MCHC (RBC) [Mass/Vol] 30.4 g/dL Normal 29.9-35.2 [facility] Comment on above: Performed By: #### C BC #### [facility] [address] [address] [address] Sherry Quezada MCV (RBC) [Entitic vol] 94.1 fL Normal 81.0-99.0 [facility] Comment on above: Performed By: #### C BC #### [facility] [address] [address] [address] Sherry Quezada MONO # 0.6 103/ul Normal 0.3-0.8 [facility] Comment on above: Performed By: #### C BC #### [facility] [address] [address] [address] Sherry Quezada Monocytes/100 WBC (Bld) 6.7 % Normal 1.7-12.0 [facility] Comment on above: Performed By: #### C BC #### [facility] [address] [place] [address] Dr. Sherry Quezada NEUT # 5.9 103/ul Normal 1.4-6.5 [facility] Comment on above: Performed By: #### C BC #### [facility] [address] [place] [address] Dr. Sherry Quezada Neutrophils/100 WBC (Bld) 70.7 % Normal 43.0-75.0 [facility] Comment on above: Performed By: #### C BC #### [facility] [address] [place] [address] Dr. Sherry Quezada Platelet mean volume (Bld) [Entitic vol] 9.7 fL Normal 9.5-13.5 [facility] Comment on above: Performed By: #### C BC #### [facility] [address] [place] [address] Dr. Sherry Quezada PLT 327 103/ul Normal 150-450 [facility] Comment on above: Performed By: #### C BC #### [facility] [address] [place] [address] Dr. Sherry Quezada RBC 3.74 106/ul Critically low 4.20-5.40 [facility] Comment on above: Performed By: #### C BC #### [facility] [address] [place] [address] Dr. Sherry Quezada WBC 8.3 103/ul Normal 4.0-11.0 [facility] Comment on above: Performed By: #### C BC #### [facility] [address] [place] [address] Dr. Sherry Quezada FERRITINon 08-06-2022 Ferritin [Mass/Vol] 34.0 ng/mL Normal 8.0-252.0 [facility] Comment on above: Performed By: #### C BC #### [facility] [address] [place] [address] Dr. Sherry Quezada IRON AND TIBCon 08-06-2022 % SATURATION 5.9 % Normal [facility] Comment on above: Performed By: #### C BC #### [facility] [address] [place] [address] Dr. Sherry Quezada Iron [Mass/Vol] 20.0 ug/dL Critically low 50.0-170.0 [facility] Comment on above: Performed By: #### C BC #### [facility] [address] [place] [address] Dr. Sherry Quezada TIBC DIRECT 338.0 ug/dL Normal 250.0-450. 0 [facility] Comment on above: Performed By: #### C BC #### [facility] [address] [place] [address] Dr. Sherry Quezada CBC AUTO DIFFon 06-04-2022 BASO # 0.1 103/ul Normal 0.0-0.1 [facility] Comment on above: Performed By: #### T SH #### [facility] [address] [place] [address] Dr. Sherry Quezada Basophils/100 WBC (Bld) 1.0 % Normal 0.2-2.0 [facility] Comment on above: Performed By: #### T SH #### [facility] [address] [place] [address] Dr. Sherry Quezada EO # 0.1 103/ul Normal 0.0-0.7 [facility] Comment on above: Performed By: #### T SH #### [facility] [address] [place] [address] Dr. Sherry Quezada Eosinophils/100 WBC (Bld) 2.1 % Normal 0.9-7.0 [facility] Comment on above: Performed By: #### T SH #### [facility] [address] [place] [address] Dr. Sherry Quezada Erythrocyte distribution width (RBC) [Ratio] 19.3 % Critically high 11.0-15.0 [facility] Comment on above: Performed By: #### T SH #### [facility] [address] [place] [address] Dr. Sherry Quezada Hematocrit (Bld) [Volume fraction] 38.4 % Normal 36.0-48.0 [facility] Comment on above: Performed By: #### T SH #### [facility] [address] [place] [address] Dr. Sherry Quezada Hemoglobin (Bld) [Mass/Vol] 11.7 g/dL Critically low 12.0-16.0 [facility] Comment on above: Performed By: #### T SH #### [facility] [address] [place] [address] Dr. Sherry Quezada IG # 0.03 10e3/ul Normal 0.00-0.03 [facility] Comment on above: Performed By: #### T SH #### [facility] [address] [place] [address] Dr. Sherry Quezada IG % 0.5 % Normal 0.0-0.5 [facility] Comment on above: Performed By: #### T SH #### [facility] [address] [place] [address] Dr. Sherry Quezada LYMPH # 1.2 103/ul Normal 1.2-3.8 [facility] Comment on above: Performed By: #### T SH #### [facility] [address] [place] [address] Dr. Sherry Quezada Lymphocytes/100 WBC (Bld) 21.1 % Normal 20.5-60.0 [facility] Comment on above: Performed By: #### T SH #### [facility] [address] [place] [address] Dr. Sherry Quezada MANUAL DIFF REQ NO Normal [facility] Comment on above: Performed By: #### T SH #### [facility] [address] [place] [address] Dr. Sherry Quezada MCH (RBC) [Entitic mass] 27.0 pg Normal 26.7-34.0 [facility] Comment on above: Performed By: #### T SH #### [facility] [address] [place] [address] Dr. Sherry Quezada MCHC (RBC) [Mass/Vol] 30.5 g/dL Normal 29.9-35.2 [facility] Comment on above: Performed By: #### T SH #### [facility] [address] [place] [address] Dr. Sherry Quezada MCV (RBC) [Entitic vol] 88.5 fL Normal 81.0-99.0 [facility] Comment on above: Performed By: #### T SH #### [facility] [address] [place] [address] Dr. Sherry Quezada MONO # 0.4 103/ul Normal 0.3-0.8 [facility] Comment on above: Performed By: #### T SH #### [facility] [address] [place] [address] Dr. Sherry Quezada Monocytes/100 WBC (Bld) 7.5 % Normal 1.7-12.0 [facility] Comment on above: Performed By: #### T SH #### [facility] [address] [place] [address] Dr. Sherry Quezada NEUT # 3.9 103/ul Normal 1.4-6.5 [facility] Comment on above: Performed By: #### T SH #### [facility] [address] [place] [address] Dr. Sherry Quezada Neutrophils/100 WBC (Bld) 67.8 % Normal 43.0-75.0 [facility] Comment on above: Performed By: #### T SH #### [facility] [address] [place] [address] Dr. Sherry Quezada Platelet mean volume (Bld) [Entitic vol] 10.2 fL Normal 9.5-13.5 [facility] Comment on above: Performed By: #### T SH #### [facility] [address] [place] [address] Dr. Sherry Quezada PLT 324 103/ul Normal 150-450 [facility] Comment on above: Performed By: #### T SH #### [facility] [address] [place] [address] Dr. Sherry Quezada RBC 4.34 106/ul Normal 4.20-5.40 [facility] Comment on above: Performed By: #### T SH #### [facility] [address] [place] [address] Dr. Sherry Quezada WBC 5.8 103/ul Normal 4.0-11.0 [facility] Comment on above: Performed By: #### T SH #### [facility] [address] [place] [address] Dr. Sherry Quezada FERRITINon 06-04-2022 Ferritin [Mass/Vol] 48.0 ng/mL Normal 8.0-252.0 [facility] Comment on above: Performed By: #### C BC #### [facility] [address] [place] [address] Dr. Sherry Quezada GLYCOHEMOGLOBIN A1Con 2021 ADA RECOMMENDATION SEE BELOW Normal [facility] Comment on above: Result Comment: ADA RECOMMENDED LIMIT 4.0 - 6.0 ADA THERAPEUTIC TARGET < 7.0 ACTION SUGGESTED > 7.0 Performed By: #### T SH #### [facility] [address] [place] [address] Dr. Sherry Quezada Glucose [Mass/Vol] 77 mg/dL Normal [facility] Comment on above: Performed By: #### T SH #### [facility] [address] [place] [address] Dr. Sherry Quezada HbA1c (Bld) [Mass fraction] 4.3 % Critically low 4.5-6.2 [facility] Comment on above: Performed By: #### T SH #### [facility] [address] [place] [address] Dr. Sherry Quezada IRON AND TIBCon 06-04-2022 % SATURATION 13.4 % Normal [facility] Comment on above: Performed By: #### C BC #### [facility] [address] [place] [address] Dr. Sherry Quezada Iron [Mass/Vol] 42.0 ug/dL Critically low 50.0-170.0 [facility] Comment on above: Performed By: #### C BC #### [facility] [address] [place] [address] Dr. Sherry Quezada TIBC DIRECT 314.0 ug/dL Normal 250.0-450. 0 [facility] Comment on above: Performed By: #### C BC #### [facility] [address] [place] [address] Dr. Sherry Quezada PROF 14(COMP METB)on 022 Albumin [Mass/Vol] 3.4 g/dL Normal 3.4-5.0 [facility] Comment on above: Performed By: #### C VDTBH #### [facility] [address] [place] [address] Dr. Sherry Quezada Albumin/Globulin [Mass ratio] 0.9 {ratio} Normal [facility] Comment on above: Performed By: #### C VDTBH #### [facility] [address] [place] [address] Dr. Sheryr Quezada ALP [Catalytic activity/Vol] 97 U/L Normal 46-116 [facility] Comment on above: Performed By: #### C VDTBH #### [facility] [address] [place] [address] Dr. Sherry Quezada ALT [Catalytic activity/Vol] 19 U/L Normal 14-59 [facility] Comment on above: Performed By: #### C VDTBH #### [facility] [address] [place] [address] Dr. Sherry Quezada Anion gap [Moles/Vol] 12.4 mmol/L Normal [facility] Comment on above: Performed By: #### C VDTBH #### [facility] [address] [address] [address] Sherry Quezada AST [Catalytic activity/Vol] 12 U/L Critically low 15-37 [facility] Comment on above: Performed By: #### C VDTBH #### [facility] [address] [place] [address] Dr. Sherry Quezada Bilirubin [Mass/Vol] 0.6 mg/dL Normal 0.2-1.0 [facility] Comment on above: Performed By: #### C VDTBH #### [facility] [address] [place] [address] Dr. Sherry Quezada Calcium [Mass/Vol] 8.9 mg/dL Normal 8.5-10.1 [facility] Comment on above: Performed By: #### C VDTBH #### [facility] [address] [place] [address] Dr. Sherry Quezada Chloride [Moles/Vol] 106 mmol/L Normal 98-107 [facility] Comment on above: Performed By: #### C VDTBH #### [facility] [address] [place] [address] Dr. Sherry Quezada CO2 [Moles/Vol] 24.6 mmol/L Normal 21.0-32.0 [facility] Comment on above: Performed By: #### C VDTBH #### [facility] [address] [place] [address] Dr. Sherry Quezada Creatinine [Mass/Vol] 0.88 mg/dL Normal 0.55-1.02 [facility] Comment on above: Performed By: #### C VDTBH #### [facility] [address] [place] [address] Dr. Sherry Quezada EGFR-AF KAZAKH >60 Normal >=60 [facility] Comment on above: Performed By: #### C VDTBH #### [facility] [address] [place] [address] Dr. Sherry Quezada EGFR-NON AF KAZAKH >60 Normal >=60 [facility] Comment on above: Performed By: #### C VDTBH #### [facility] [address] [address] [address] Sherry Quezada Globulin (S) [Mass/Vol] 3.6 g/dL Normal [facility] Comment on above: Performed By: #### C VDTBH #### [facility] [address] [place] [address] Dr. Sherry Quezada Glucose [Mass/Vol] 99 mg/dL Normal 74-106 [facility] Comment on above: Performed By: #### C VDTBH #### [facility] [address] [place] [address] Dr. Sherry Quezada Potassium [Moles/Vol] 4.0 mmol/L Normal 3.5-5.1 [facility] Comment on above: Performed By: #### C VDTBH #### [facility] [address] [place] [address] Dr. Sherry Quezada Protein [Mass/Vol] 7.0 g/dL Normal 6.4-8.2 [facility] Comment on above: Performed By: #### C VDTBH #### [facility] [address] [place] [address] Dr. Sherry Quezada Sodium [Moles/Vol] 139 mmol/L Normal 136-145 [facility] Comment on above: Performed By: #### C VDTBH #### [facility] [address] [place] [address] Dr. Sherry Quezada Urea nitrogen [Mass/Vol] 13.0 mg/dL Normal 7.0-18.0 [facility] Comment on above: Performed By: #### C VDTBH #### [facility] [address] [place] [address] Dr. Sherry Quezada Urea nitrogen/Creatinine [Mass ratio] 14.8 mg/mg Normal [facility] Comment on above: Performed By: #### C VDTBH #### [facility] [address] [place] [address] Dr. Sherry Quezada T3, TOTAL (TRIIODOTHYRONINE) on 04-04-2022 T3, TOTAL 95 ng/dL Normal 71-180 [facility] Comment on above: Performed By: #### T 3TOTAL #### [facility] [address] [place] [address] Dr. Sherry Quezada CBC AUTO DIFFon 04-03-2022 BASO # 0.1 103/ul Normal 0.0-0.1 [facility] Comment on above: Performed By: #### C BC #### [facility] [address] [place] [address] Dr. Sherry Quezada Basophils/100 WBC (Bld) 1.3 % Normal 0.2-2.0 [facility] Comment on above: Performed By: #### C BC #### [facility] [address] [place] [address] Dr. Sherry Quezada EO # 0.1 103/ul Normal 0.0-0.7 [facility] Comment on above: Performed By: #### C BC #### [facility] [address] [place] [address] Dr. Sherry Quezada Eosinophils/100 WBC (Bld) 1.3 % Normal 0.9-7.0 [facility] Comment on above: Performed By: #### C BC #### [facility] [address] [place] [address] Dr. Sherry Quezada Erythrocyte distribution width (RBC) [Ratio] 19.4 % Critically high 11.0-15.0 [facility] Comment on above: Performed By: #### C BC #### [facility] [address] [place] [address] Dr. Sherry Quezada Hematocrit (Bld) [Volume fraction] 33.2 % Critically low 36.0-48.0 [facility] Comment on above: Performed By: #### C BC #### [facility] [address] [place] [address] Dr. Sherry Quezada Hemoglobin (Bld) [Mass/Vol] 9.7 g/dL Critically low 12.0-16.0 [facility] Comment on above: Performed By: #### C BC #### [facility] [address] [place] [address] Dr. Sherry Quezada IG # 0.02 10e3/ul Normal 0.00-0.03 [facility] Comment on above: Performed By: #### C BC #### [facility] [address] [place] [address] Dr. Sherry Quezada IG % 0.3 % Normal 0.0-0.5 [facility] Comment on above: Performed By: #### C BC #### [facility] [address] [place] [address] Dr. Sherry Quezada LYMPH # 0.9 103/ul Critically low 1.2-3.8 [facility] Comment on above: Performed By: #### C BC #### [facility] [address] [place] [address] Dr. Sherry Quezada Lymphocytes/100 WBC (Bld) 14.7 % Critically low 20.5-60.0 [facility] Comment on above: Performed By: #### C BC #### [facility] [address] [place] [address] Dr. Sherry Quezada MANUAL DIFF REQ NO Normal [facility] Comment on above: Performed By: #### C BC #### [facility] [address] [place] [address] Dr. Sherry Quezada MCH (RBC) [Entitic mass] 24.9 pg Critically low 26.7-34.0 [facility] Comment on above: Performed By: #### C BC #### [facility] [address] [place] [address] Dr. Sherry Quezada MCHC (RBC) [Mass/Vol] 29.2 g/dL Critically low 29.9-35.2 [facility] Comment on above: Performed By: #### C BC #### [facility] [address] [place] [address] Dr. Sherry Quezada MCV (RBC) [Entitic vol] 85.1 fL Normal 81.0-99.0 [facility] Comment on above: Performed By: #### C BC #### [facility] [address] [place] [address] Dr. Sherry Quezada MONO # 0.5 103/ul Normal 0.3-0.8 [facility] Comment on above: Performed By: #### C BC #### [facility] [address] [place] [address] Dr. Sherry Quezada Monocytes/100 WBC (Bld) 7.8 % Normal 1.7-12.0 [facility] Comment on above: Performed By: #### C BC #### [facility] [address] [place] [address] Dr. Sherry Quezada NEUT # 4.6 103/ul Normal 1.4-6.5 [facility] Comment on above: Performed By: #### C BC #### [facility] [address] [place] [address] Dr. Sherry Quezada Neutrophils/100 WBC (Bld) 74.6 % Normal 43.0-75.0 [facility] Comment on above: Performed By: #### C BC #### [facility] [address] [place] [address] Dr. Sherry Quezada Platelet mean volume (Bld) [Entitic vol] 10.1 fL Normal 9.5-13.5 [facility] Comment on above: Performed By: #### C BC #### [facility] [address] [place] [address] Dr. Sherry Quezada PLT 302 103/ul Normal 150-450 [facility] Comment on above: Performed By: #### C BC #### [facility] [address] [place] [address] Dr. Sherry Quezada RBC 3.90 106/ul Critically low 4.20-5.40 [facility] Comment on above: Performed By: #### C BC #### [facility] [address] [place] [address] Dr. Sherry Quezada WBC 6.1 103/ul Normal 4.0-11.0 [facility] Comment on above: Performed By: #### C BC #### [facility] [address] [place] [address] Dr. Sherry Quezada FERRITINon 04-03-2022 Ferritin [Mass/Vol] 11.0 ng/mL Normal 8.0-252.0 [facility] Comment on above: Performed By: #### F T4, FERR, FETIBC #### [facility] [address] [place] [address] Dr. Sherry Quezada FREE T4on 04-03-2022 Free T4 [Mass/Vol] 1.06 ng/dL Normal 0.76-1.46 [facility] Comment on above: Performed By: #### F T4, FERR, FETIBC #### [facility] [address] [place] [address] Dr. Sherry Quezada IRON AND TIBCon 04-03-2022 % SATURATION 6.0 % Normal [facility] Comment on above: Performed By: #### F T4, FERR, FETIBC #### [facility] [address] [place] [address] Dr. Sherry Quezada Iron [Mass/Vol] 21.0 ug/dL Critically low 50.0-170.0 [facility] Comment on above: Performed By: #### F T4, FERR, FETIBC #### [facility] [address] [place] [address] Dr. Sherry Quezada TIBC DIRECT 352.0 ug/dL Normal 250.0-450. 0 [facility] Comment on above: Performed By: #### F T4, FERR, FETIBC #### [facility] [address] [place] [address] Dr. Sherry Quezada TSHon 04-03-2022 TSH 0.880 uIU/mL Normal 0.358-3.74 0 [facility] Comment on above: Performed By: #### T SH #### [facility] [address] [place] [address] Dr. Sherry Quezada MG MAMM SCREEN 3D MANJINDER CADon 02-16-2022 MG MAMM SCREEN 3D MANJINDER CAD Patient: TU CONDE Exam Date: 02/16/2022 : 1950 Gender:F Ordering : DR SHALOM JONES D.O. Admission #: [id number] Family : Order #: [id number] CLICK HERE TO VIEW EXAM RADIOLOGY REPORT [...] Treatments None Family Cancers None LOCATION: [facility] BREAST COMPOSITION: Scattered areas fibroglandular density. [...] PALPABLE LUMP SHOULD BE BIOPSIED. Dictated by: Margot Freeman M.D. on 02/19/2022 at 12:43 Approved by: Margot Freeman M.D. on 02/19/2022 at 12:46 Normal [facility] CBC AUTO DIFFon 02-13-2022 BASO # 0.1 103/ul Normal 0.0-0.1 [facility] Comment on above: Performed By: #### C BC #### [facility] [address] [address] [address] Sherry Quezada Basophils/100 WBC (Bld) 1.5 % Normal 0.2-2.0 [facility] Comment on above: Performed By: #### C BC #### [facility] [address] [address] [address] Sherry Quezada EO # 0.1 103/ul Normal 0.0-0.7 [facility] Comment on above: Performed By: #### C BC #### [facility] [address] [address] [address] Sherry Quezada Eosinophils/100 WBC (Bld) 1.0 % Normal 0.9-7.0 [facility] Comment on above: Performed By: #### C BC #### [facility] [address] [address] [address] Sherry Quezada Hematocrit (Bld) [Volume fraction] 35.3 % Critically low 36.0-48.0 [facility] Comment on above: Performed By: #### C BC #### [facility] [address] [address] [address] Sherry Quezada Hemoglobin (Bld) [Mass/Vol] 10.5 g/dL Critically low 12.0-16.0 [facility] Comment on above: Performed By: #### C BC #### [facility] [address] [address] [address] Sherry Quezada IG # 0.01 10e3/ul Normal 0.00-0.03 [facility] Comment on above: Performed By: #### C BC #### [facility] [address] [place] [address] Dr. Sherry Quezada IG % 0.2 % Normal 0.0-0.5 [facility] Comment on above: Performed By: #### C BC #### [facility] [address] [place] [address] Dr. Sherry Quezada LYMPH # 1.0 103/ul Critically low 1.2-3.8 [facility] Comment on above: Performed By: #### C BC #### [facility] [address] [place] [address] Dr. Sherry Quezada Lymphocytes/100 WBC (Bld) 16.7 % Critically low 20.5-60.0 [facility] Comment on above: Performed By: #### C BC #### [facility] [address] [place] [address] Dr. Sheryr Quezada MANUAL DIFF REQ NO Normal [facility] Comment on above: Performed By: #### C BC #### [facility] [address] [place] [address] Dr. Sherry Quezada MCH (RBC) [Entitic mass] 27.8 pg Normal 26.7-34.0 [facility] Comment on above: Performed By: #### C BC #### [facility] [address] [place] [address] Dr. Sherry Quezada MCHC (RBC) [Mass/Vol] 29.7 g/dL Critically low 29.9-35.2 [facility] Comment on above: Result Comment: 1+ h ypochromasia Performed By: #### C BC #### [facility] [address] [address] [address] Sherry Quezada MCV (RBC) [Entitic vol] 93.4 fL Normal 81.0-99.0 [facility] Comment on above: Performed By: #### C BC #### [facility] [address] [address] [address] Sherry Quezada MONO # 0.4 103/ul Normal 0.3-0.8 [facility] Comment on above: Performed By: #### C BC #### [facility] [address] [address] [address] Sherry Quezada Monocytes/100 WBC (Bld) 6.7 % Normal 1.7-12.0 [facility] Comment on above: Performed By: #### C BC #### [facility] [address] [address] [address] Sherry Quezada NEUT # 4.5 103/ul Normal 1.4-6.5 [facility] Comment on above: Performed By: #### C BC #### [facility] [address] [address] [address] Sherry Quezada Neutrophils/100 WBC (Bld) 73.9 % Normal 43.0-75.0 [facility] Comment on above: Performed By: #### C BC #### [facility] [address] [address] [address] Sherry Quezada Platelet mean volume (Bld) [Entitic vol] 9.8 fL Normal 9.5-13.5 [facility] Comment on above: Performed By: #### C BC #### [facility] [address] [address] [address] Sherry Quezada PLT 305 103/ul Normal 150-450 [facility] Comment on above: Performed By: #### C BC #### [facility] [address] [address] [address] Sherry Quezada RBC 3.78 106/ul Critically low 4.20-5.40 [facility] Comment on above: Performed By: #### C BC #### [facility] [address] [place] [address] Dr. Sherry Quezada WBC 6.1 103/ul Normal 4.0-11.0 [facility] Comment on above: Performed By: #### C BC #### [facility] [address] [place] [address] Dr. Sherry Quezada FERRITINon 02-13-2022 Ferritin [Mass/Vol] 75.0 ng/mL Normal 8.0-252.0 [facility] Comment on above: Performed By: #### F ETIBC, FERR #### [facility] [address] [place] [address] Dr. Sherry Quezada IRON AND TIBCon 02-13-2022 % SATURATION 9.0 % Normal [facility] Comment on above: Performed By: #### T SH #### [facility] [address] [place] [address] Dr. Sherry Quezada Iron [Mass/Vol] 34.0 ug/dL Critically low 50.0-170.0 [facility] Comment on above: Performed By: #### T SH #### [facility] [address] [place] [address] Dr. Sherry Quezada TIBC DIRECT 376.0 ug/dL Normal 250.0-450. 0 [facility] Comment on above: Performed By: #### T SH #### [facility] [address] [place] [address] Dr. Sherry Quezada PROF 14(COMP METB)on 022 Albumin [Mass/Vol] 3.3 g/dL Critically low 3.4-5.0 [facility] Comment on above: Performed By: #### C BC #### [facility] [address] [place] [address] Dr. Sherry Quezada Albumin/Globulin [Mass ratio] 0.9 {ratio} Normal [facility] Comment on above: Performed By: #### C BC #### [facility] [address] [place] [address] Dr. Sherry Quezada ALP [Catalytic activity/Vol] 92 U/L Normal 46-116 [facility] Comment on above: Performed By: #### C BC #### [facility] [address] [address] [address] Sherry Quezada ALT [Catalytic activity/Vol] 19 U/L Normal 14-59 [facility] Comment on above: Performed By: #### C BC #### [facility] [address] [address] [address] Sherry Quezada Anion gap [Moles/Vol] 14.2 mmol/L Normal [facility] Comment on above: Performed By: #### C BC #### [facility] [address] [address] [address] Sherry Quezada AST [Catalytic activity/Vol] 13 U/L Critically low 15-37 [facility] Comment on above: Performed By: #### C BC #### [facility] [address] [place] [address] Dr. Sherry Quezada Bilirubin [Mass/Vol] 0.6 mg/dL Normal 0.2-1.0 [facility] Comment on above: Performed By: #### C BC #### [facility] [address] [place] [address] Dr. Sherry Quezada Calcium [Mass/Vol] 8.8 mg/dL Normal 8.5-10.1 [facility] Comment on above: Performed By: #### C BC #### [facility] [address] [place] [address] Dr. Sherry Quezada Chloride [Moles/Vol] 105 mmol/L Normal 98-107 [facility] Comment on above: Performed By: #### C BC #### [facility] [address] [address] [address] Sherry Quezada CO2 [Moles/Vol] 24.5 mmol/L Normal 21.0-32.0 [facility] Comment on above: Performed By: #### C BC #### [facility] [address] [place] [address] Dr. Sherry Quezada Creatinine [Mass/Vol] 0.97 mg/dL Normal 0.55-1.02 [facility] Comment on above: Performed By: #### C BC #### [facility] [address] [address] [address] Sherry Quezada EGFR-AF KAZAKH >60 Normal >=60 [facility] Comment on above: Performed By: #### C BC #### [facility] [address] [address] [address] Sherry Quezada EGFR-NON AF KAZAKH 56 mL/min/1.73m2 Critically low >=60 [facility] Comment on above: Performed By: #### C BC #### [facility] [address] [address] [address] Sherry Quezada Globulin (S) [Mass/Vol] 3.6 g/dL Normal [facility] Comment on above: Performed By: #### C BC #### [facility] [address] [place] [address] Dr. Sherry Quezada Glucose [Mass/Vol] 110 mg/dL Critically high 74-106 [facility] Comment on above: Performed By: #### C BC #### [facility] [address] [place] [address] Dr. Sherry Quezada Potassium [Moles/Vol] 3.7 mmol/L Normal 3.5-5.1 [facility] Comment on above: Performed By: #### C BC #### [facility] [address] [place] [address] Dr. Sherry Quezada Protein [Mass/Vol] 6.9 g/dL Normal 6.4-8.2 [facility] Comment on above: Performed By: #### C BC #### [facility] [address] [place] [address] Dr. Sherry Quezada Sodium [Moles/Vol] 140 mmol/L Normal 136-145 [facility] Comment on above: Performed By: #### C BC #### [facility] [address] [address] [address] Sherry Quezada Urea nitrogen [Mass/Vol] 19.0 mg/dL Critically high 7.0-18.0 [facility] Comment on above: Performed By: #### C BC #### [facility] [address] [address] [address] Sherry Quezada Urea nitrogen/Creatinine [Mass ratio] 19.6 mg/mg Normal [facility] Comment on above: Performed By: #### C BC #### [facility] [address] [place] [address] Dr. Sherry Quezada CBC AUTO DIFFon 01-03-2022 BASO # 0.1 103/ul Normal 0.0-0.1 [facility] Comment on above: Performed By: #### C VDTBH #### [facility] [address] [place] [address] Dr. Sherry Quezada Basophils/100 WBC (Bld) 1.7 % Normal 0.2-2.0 [facility] Comment on above: Performed By: #### C VDTBH #### [facility] [address] [place] [address] Dr. Sherry Quezada EO # 0.1 103/ul Normal 0.0-0.7 [facility] Comment on above: Performed By: #### C VDTBH #### [facility] [address] [place] [address] Dr. Sherry Quezada Eosinophils/100 WBC (Bld) 2.1 % Normal 0.9-7.0 [facility] Comment on above: Performed By: #### C VDTBH #### [facility] [address] [place] [address] Dr. Sherry Quezada Erythrocyte distribution width (RBC) [Ratio] 18.9 % Critically high 11.0-15.0 [facility] Comment on above: Performed By: #### C VDTBH #### [facility] [address] [place] [address] Dr. Sherry Quezada Hematocrit (Bld) [Volume fraction] 32.7 % Critically low 36.0-48.0 [facility] Comment on above: Performed By: #### C VDTBH #### [facility] [address] [place] [address] Dr. Sherry Quezada Hemoglobin (Bld) [Mass/Vol] 9.1 g/dL Critically low 12.0-16.0 [facility] Comment on above: Performed By: #### C VDTBH #### [facility] [address] [place] [address] Dr. Sherry Quezada IG # 0.02 10e3/ul Normal 0.00-0.03 [facility] Comment on above: Performed By: #### C VDTBH #### [facility] [address] [place] [address] Dr. Sherry Quezada IG % 0.3 % Normal 0.0-0.5 [facility] Comment on above: Performed By: #### C VDTBH #### [facility] [address] [place] [address] Dr. Sherry Quezada LYMPH # 1.4 103/ul Normal 1.2-3.8 [facility] Comment on above: Performed By: #### C VDTBH #### [facility] [address] [place] [address] Dr. Sherry Quezada Lymphocytes/100 WBC (Bld) 23.8 % Normal 20.5-60.0 [facility] Comment on above: Performed By: #### C VDTBH #### [facility] [address] [place] [address] Dr. Sherry Quezada MANUAL DIFF REQ NO Normal [facility] Comment on above: Performed By: #### C VDTBH #### [facility] [address] [place] [address] Dr. Sherry Quezada MCH (RBC) [Entitic mass] 24.1 pg Critically low 26.7-34.0 [facility] Comment on above: Performed By: #### C VDTBH #### [facility] [address] [place] [address] Dr. Sherry Quezada MCHC (RBC) [Mass/Vol] 27.8 g/dL Critically low 29.9-35.2 [facility] Comment on above: Performed By: #### C VDTBH #### [facility] [address] [place] [address] Dr. Sherry Quezada MCV (RBC) [Entitic vol] 86.7 fL Normal 81.0-99.0 [facility] Comment on above: Performed By: #### C VDTBH #### [facility] [address] [place] [address] Dr. Sherry Quezada MONO # 0.5 103/ul Normal 0.3-0.8 [facility] Comment on above: Performed By: #### C VDTBH #### [facility] [address] [place] [address] Dr. Sherry Quezada Monocytes/100 WBC (Bld) 8.7 % Normal 1.7-12.0 [facility] Comment on above: Performed By: #### C VDTBH #### [facility] [address] [place] [address] Dr. Sherry Quezada NEUT # 3.6 103/ul Normal 1.4-6.5 [facility] Comment on above: Performed By: #### C VDTBH #### [facility] [address] [place] [address] Dr. Sherry Quezada Neutrophils/100 WBC (Bld) 63.4 % Normal 43.0-75.0 [facility] Comment on above: Performed By: #### C VDTBH #### [facility] [address] [place] [address] Dr. Sherry Quezada Platelet mean volume (Bld) [Entitic vol] 10.3 fL Normal 9.5-13.5 [facility] Comment on above: Performed By: #### C VDTBH #### [facility] [address] [place] [address] Dr. Sherry Quezada PLT 288 103/ul Normal 150-450 [facility] Comment on above: Performed By: #### C VDTBH #### [facility] [address] [place] [address] Dr. Sherry Quezada RBC 3.77 106/ul Critically low 4.20-5.40 [facility] Comment on above: Performed By: #### C VDTBH #### [facility] [address] [place] [address] Dr. Sherry Quezada WBC 5.8 103/ul Normal 4.0-11.0 [facility] Comment on above: Performed By: #### C VDTBH #### [facility] [address] [place] [address] Dr. Sherry Quezada FERRITINon 01-03-2022 Ferritin [Mass/Vol] 23.0 ng/mL Normal 8.0-252.0 [facility] Comment on above: Performed By: #### C BC #### [facility] [address] [place] [address] Dr. Sherry Quezada IRON AND TIBCon 01-03-2022 % SATURATION 5.0 % Normal [facility] Comment on above: Performed By: #### C BC #### [facility] [address] [place] [address] Dr. Sherry Quezada Iron [Mass/Vol] 19.0 ug/dL Critically low 50.0-170.0 [facility] Comment on above: Performed By: #### C BC #### [facility] [address] [place] [address] Dr. Sherry Quezada TIBC DIRECT 377.0 ug/dL Normal 250.0-450. 0 [facility] Comment on above: Performed By: #### C BC #### [facility] [address] [place] [address] Dr. Sherry Quezada CBC AUTO DIFFon 11-22-2021 BASO # 0.1 103/ul Normal 0.0-0.1 [facility] Comment on above: Performed By: #### C VDTBH #### [facility] [address] [place] [address] Dr. Sherry Quezada Basophils/100 WBC (Bld) 1.5 % Normal 0.2-2.0 [facility] Comment on above: Performed By: #### C VDTBH #### [facility] [address] [place] [address] Dr. Sherry uQezada EO # 0.1 103/ul Normal 0.0-0.7 [facility] Comment on above: Performed By: #### C VDTBH #### [facility] [address] [place] [address] Dr. Sherry Quezada Eosinophils/100 WBC (Bld) 2.3 % Normal 0.9-7.0 [facility] Comment on above: Performed By: #### C VDTBH #### [facility] [address] [place] [address] Dr. Sherry Quezada Erythrocyte distribution width (RBC) [Ratio] 15.9 % Critically high 11.0-15.0 [facility] Comment on above: Performed By: #### C VDTBH #### [facility] [address] [place] [address] Dr. Sherry Quezada Hematocrit (Bld) [Volume fraction] 31.9 % Critically low 36.0-48.0 [facility] Comment on above: Performed By: #### C VDTBH #### [facility] [address] [place] [address] Dr. Sherry Quezada Hemoglobin (Bld) [Mass/Vol] 9.4 g/dL Critically low 12.0-16.0 [facility] Comment on above: Performed By: #### C VDTBH #### [facility] [address] [place] [address] Dr. Sherry Quezada IG # 0.03 10e3/ul Normal 0.00-0.03 [facility] Comment on above: Performed By: #### C VDTBH #### [facility] [address] [place] [address] Dr. Sherry Quezada IG % 0.6 % Critically high 0.0-0.5 [facility] Comment on above: Performed By: #### C VDTBH #### [facility] [address] [place] [address] Dr. Sherry Quezada LYMPH # 0.8 103/ul Critically low 1.2-3.8 [facility] Comment on above: Performed By: #### C VDTBH #### [facility] [address] [place] [address] Dr. Sherry Quezada Lymphocytes/100 WBC (Bld) 16.1 % Critically low 20.5-60.0 [facility] Comment on above: Performed By: #### C VDTBH #### [facility] [address] [place] [address] Dr. Sherry Quezada MANUAL DIFF REQ NO Normal [facility] Comment on above: Performed By: #### C VDTBH #### [facility] [address] [place] [address] Dr. Sherry Quezada MCH (RBC) [Entitic mass] 26.9 pg Normal 26.7-34.0 [facility] Comment on above: Performed By: #### C VDTBH #### [facility] [address] [place] [address] Dr. Sherry Quezada MCHC (RBC) [Mass/Vol] 29.5 g/dL Critically low 29.9-35.2 [facility] Comment on above: Performed By: #### C VDTBH #### [facility] [address] [place] [address] Dr. Sherry Quezada MCV (RBC) [Entitic vol] 91.4 fL Normal 81.0-99.0 [facility] Comment on above: Performed By: #### C VDTBH #### [facility] [address] [place] [address] Dr. Sherry Quezada MONO # 0.3 103/ul Normal 0.3-0.8 [facility] Comment on above: Performed By: #### C VDTBH #### [facility] [address] [place] [address] Dr. Sherry Quezada Monocytes/100 WBC (Bld) 6.5 % Normal 1.7-12.0 [facility] Comment on above: Performed By: #### C VDTBH #### [facility] [address] [place] [address] Dr. Sherry Quezada NEUT # 3.5 103/ul Normal 1.4-6.5 [facility] Comment on above: Performed By: #### C VDTBH #### [facility] [address] [place] [address] Dr. Sherry Quezada Neutrophils/100 WBC (Bld) 73.0 % Normal 43.0-75.0 [facility] Comment on above: Performed By: #### C VDTBH #### [facility] [address] [place] [address] Dr. Sherry Quezada Platelet mean volume (Bld) [Entitic vol] 10.1 fL Normal 9.5-13.5 [facility] Comment on above: Performed By: #### C VDTBH #### [facility] [address] [place] [address] Dr. Sherry Quezada PLT 283 103/ul Normal 150-450 [facility] Comment on above: Performed By: #### C VDTBH #### [facility] [address] [place] [address] Dr. Sherry Quezada RBC 3.49 106/ul Critically low 4.20-5.40 [facility] Comment on above: Performed By: #### C VDTBH #### [facility] [address] [place] [address] Dr. Sherry Quezada WBC 4.8 103/ul Normal 4.0-11.0 [facility] Comment on above: Performed By: #### C VDTBH #### [facility] [address] [place] [address] Dr. Sherry Quezada FERRITINon 11-22-2021 Ferritin [Mass/Vol] 20.0 ng/mL Normal 11.1-264.0 [facility] Comment on above: Performed By: #### C BC #### [facility] [address] [place] [address] Dr. Sherry Quezada IRON AND TIBCon 11-22-2021 % SATURATION 3.9 % Normal [facility] Comment on above: Performed By: #### C BC #### [facility] [address] [place] [address] Dr. Sherry Quezada Iron [Mass/Vol] 15.0 ug/dL Critically low 37.0-170.0 [facility] Comment on above: Performed By: #### C BC #### [facility] [address] [place] [address] Dr. Sherry Quezada TIBC DIRECT 386.0 ug/dL Normal 261.0-497. 0 [facility] Comment on above: Performed By: #### C BC #### [facility] [address] [place] [address] Dr. Sherry Quezada PROF 14(COMP METB)on 022 Albumin [Mass/Vol] 3.2 g/dL Critically low 3.4-5.0 [facility] Comment on above: Performed By: #### C BC #### [facility] [address] [place] [address] Dr. Sherry Quezada Albumin/Globulin [Mass ratio] 0.9 {ratio} Normal [facility] Comment on above: Performed By: #### C BC #### [facility] [address] [place] [address] Dr. Sherry Quezada ALP [Catalytic activity/Vol] 96 U/L Normal 46-116 [facility] Comment on above: Performed By: #### C BC #### [facility] [address] [place] [address] Dr. Sherry Quezada ALT [Catalytic activity/Vol] 19 U/L Normal 14-59 [facility] Comment on above: Performed By: #### C BC #### [facility] [address] [place] [address] Dr. Sherry Quezada Anion gap [Moles/Vol] 14.4 mmol/L Normal [facility] Comment on above: Performed By: #### C BC #### [facility] [address] [place] [address] Dr. Sherry Quezada AST [Catalytic activity/Vol] 14 U/L Critically low 15-37 [facility] Comment on above: Performed By: #### C BC #### [facility] [address] [place] [address] Dr. Sherry Quezada Bilirubin [Mass/Vol] 0.5 mg/dL Normal 0.2-1.3 [facility] Comment on above: Performed By: #### C BC #### [facility] [address] [place] [address] Dr. Sherry Quezada Calcium [Mass/Vol] 8.4 mg/dL Critically low 8.5-10.1 [facility] Comment on above: Performed By: #### C BC #### [facility] [address] [place] [address] Dr. Sherry Quezada Chloride [Moles/Vol] 106 mmol/L Normal 98-107 [facility] Comment on above: Performed By: #### C BC #### [facility] [address] [place] [address] Dr. Sherry Quezada CO2 [Moles/Vol] 25.1 mmol/L Normal 22.0-30.0 [facility] Comment on above: Performed By: #### C BC #### [facility] [address] [place] [address] Dr. Sherry Quezada Creatinine [Mass/Vol] 0.90 mg/dL Normal 0.52-1.04 [facility] Comment on above: Performed By: #### C BC #### [facility] [address] [place] [address] Dr. Sherry Quezada EGFR-AF KAZAKH >60 Normal >=60 [facility] Comment on above: Performed By: #### C BC #### [facility] [address] [place] [address] Dr. Sherry Quezada EGFR-NON AF KAZAKH >60 Normal >=60 [facility] Comment on above: Performed By: #### C BC #### [facility] [address] [place] [address] Dr. Sherry Quezada Globulin (S) [Mass/Vol] 3.6 g/dL Normal [facility] Comment on above: Performed By: #### C BC #### [facility] [address] [place] [address] Dr. Sherry Quezada Glucose [Mass/Vol] 117 mg/dL Critically high 74-106 [facility] Comment on above: Performed By: #### C BC #### [facility] [address] [place] [address] Dr. Sherry Quezada Potassium [Moles/Vol] 4.5 mmol/L Normal 3.4-5.0 [facility] Comment on above: Performed By: #### C BC #### [facility] [address] [place] [address] Dr. Sherry Quezada Protein [Mass/Vol] 6.8 g/dL Normal 6.1-8.2 [facility] Comment on above: Performed By: #### C BC #### [facility] [address], [place] [address] Dr. Sherry Quezada Sodium [Moles/Vol] 141 mmol/L Normal 137-145 [facility] Comment on above: Performed By: #### C BC #### [facility] [address], [place] [address] Dr. Sherry Quezada Urea nitrogen [Mass/Vol] 12.0 mg/dL Normal 7.0-18.0 [facility] Comment on above: Performed By: #### C BC #### [facility] [address], [place] [address] Dr. Sherry Quezada Urea nitrogen/Creatinine [Mass ratio] 13.3 mg/mg Normal [facility] Comment on above: Performed By: #### C BC #### [facility] [address], [place] [address] Dr. Sherry Quezada Basophils Auto (Bld) [#/Vol] on 01-19-2021 Basophils (Bld) [#/Vol] 0.1 10*3/uL 0.0-0.2 [facility] Basophils (Bld) [#/Vol] Automated basophil count 0.0-0.2 [facility] Basophils/100 WBC Auto (Bld) on 01-19-2021 Basophils/100 WBC (Bld) 2.1 % . [facility] Basophils/100 WBC (Bld) Automated basophil % . [facility] Blood anisocytosis detection on 01-19-2021 Anisocytosis Ql (Bld) Marked [facility] Anisocytosis Ql (Bld) Blood anisocytosis detection [facility] CT biopsyon 01-19-2021 Transferrin [Mass/Vol] 285 mg/dL 180-380 [facility] Eosinophils Auto (Bld) [#/Vo l]on 01-19-2021 Eosinophils (Bld) [#/Vol] 0.1 10*3/uL 0.0-0.45 [facility] Eosinophils (Bld) [#/Vol] Automated eosinophil count 0.0-0.45 [facility] Eosinophils/100 WBC Auto (Bl d)on 01-19-2021 Eosinophils/100 WBC (Bld) 2.2 % . [facility] Eosinophils/100 WBC (Bld) Automated eosinophil % . [facility] Erythrocyte distribution wid th Auto (RBC) [Ratio]on 01-19-2021 Erythrocyte distribution width (RBC) [Ratio] 21.4 % High 11.9-15.3 [facility] Erythrocyte distribution width (RBC) [Ratio] Erythrocyte distribution width [Ratio] by Automated count High 11.9-15.3 [facility] Ferritin [Mass/volume] in Se rum or Plasmaon 01-19-2021 Ferritin [Mass/Vol] 6.2 ng/mL Low 11-306.8 [facility] Ferritin [Mass/Vol] Ferritin [Mass/volum e] in Serum or Plasma Low 11-306.8 [facility] Hematocrit Auto (Bld) [Volum e fraction]on 01-19-2021 Hematocrit (Bld) [Volume fraction] 26.2 % Low 34.0-46.4 [facility] Hematocrit (Bld) [Volume fraction] Hematocrit [Volume Fraction] of Blood by Automated count Low 34.0-46.4 [facility] Hemoglobin [Mass/volume] in Bloodon 01-19-2021 Hemoglobin (Bld) [Mass/Vol] 7.7 g/dL Low 11.8-15.4 [facility] Hemoglobin (Bld) [Mass/Vol] Hemoglobin [Mass/volume] in Blood Low 11.8-15.4 [facility] Hypochromia detectionon 01-03 Hypochromia Ql (Bld) Moderate [facility] Hypochromia Ql (Bld) Hypochromia detection [facility] Intravascular ultrasound (IV US) of initial vesselon 01-19-2021 Intravascular ultrasound (IVUS) of initial vessel Intravascular ultrasound (IVUS) of initial vessel 180-380 [facility] Iron [Mass/volume] in Serum or Plasmaon 01-19-2021 Iron [Mass/Vol] 13 ug/dL Low 40-150 [facility] Iron [Mass/Vol] Iron [Mass/volume] i n Serum or Plasma Low 40-150 [facility] Iron binding capacity [Mass/ volume] in Serum or Plasmaon 01-19-2021 Iron binding capacity [Mass/Vol] 399 ug/dL 255-450 [facility] Iron binding capacity [Mass/Vol] Iron binding capacity [Mass/volume] in Serum or Plasma 255-450 [facility] Iron saturation [Mass Fracti on] in Serum or Plasmaon 01-19-2021 Iron saturation [Mass fraction] 3.0 % Low 20-50 [facility] Iron saturation [Mass fraction] Iron saturation [Mass Fraction] in Serum or Plasma Low 20-50 [facility] Laboratory - Hematology and Cell countson 01-19-2021 Nucleated RBC/100 WBC (Bld) [Ratio] 0.3 % 0-0.5 [facility] Leukocytes [#/volume] in Blo od by Automated counton 01-19-2021 WBC (Bld) [#/Vol] 4.1 10*3/uL Low 4.5-11.0 [facility] Lymphocytes Auto (Bld) [#/Vo l]on 01-19-2021 Lymphocytes (Bld) [#/Vol] 1.0 10*3/uL 1.00-4.8 [facility] Lymphocytes (Bld) [#/Vol] Lymphocytes [#/volume] in Blood by Automated count 1.00-4.8 [facility] Lymphocytes/100 WBC Auto (Bl d)on 01-19-2021 Lymphocytes/100 WBC (Bld) 24.0 % . [facility] Lymphocytes/100 WBC (Bld) Lymphocytes/100 leukocytes in Blood by Automated count . [facility] MCH Auto (RBC) [Entitic mass ]on 01-19-2021 MCH (RBC) [Entitic mass] 21.9 pg Low 24.7-34.3 [facility] MCH (RBC) [Entitic mass] MCH [Entitic mass] by Automated count Low 24.7-34.3 [facility] MCHC Auto (RBC) [Mass/Vol]on 01-19-2021 MCHC (RBC) [Mass/Vol] 29.5 g/dL Low 32.0-35.0 [facility] MCHC (RBC) [Mass/Vol] MCHC [Mass/volume] by Automated count Low 32.0-35.0 [facility] MCV Auto (RBC) [Entitic vol] on 01-19-2021 MCV (RBC) [Entitic vol] 74.4 fL Low 80-100 [facility] MCV (RBC) [Entitic vol] MCV [Entitic volume] by Automated count Low 80-100 [facility] Monocytes Auto (Bld) [#/Vol] on 01-19-2021 Monocytes (Bld) [#/Vol] 0.4 10*3/uL 0.0-0.8 [facility] Monocytes (Bld) [#/Vol] Automated blood monocyte count 0.0-0.8 [facility] Monocytes/100 WBC Auto (Bld) on 01-19-2021 Monocytes/100 WBC (Bld) 9.1 % . [facility] Monocytes/100 WBC (Bld) Automated monocyte % . [facility] Neutrophils Auto (Bld) [#/Vo l]on 01-19-2021 Neutrophils (Bld) [#/Vol] 2.5 10*3/uL 1.8-7.7 [facility] Neutrophils (Bld) [#/Vol] Neutrophils [#/volume] in Blood by Automated count 1.8-7.7 [facility] Neutrophils/100 WBC Auto (Bl d)on 01-19-2021 Neutrophils/100 WBC (Bld) 62.6 % . [facility] Neutrophils/100 WBC (Bld) Automated neutrophil % . [facility] No Panel Informationon 01-19 Microcytosis Moderate [facility] Platelet Estimate Normal Normal [facility] Platelet Morphology Comment Normal Normal [facility] Ovalocyte detectionon 2020 Ovalocytes LM Ql (Bld) [facility]ocytes LM Ql (Bld) Ovalocyte detection [facility] Platelet mean volume Auto (B ld) [Entitic vol]on 01-19-2021 Platelet mean volume (Bld) [Entitic vol] 8.3 fL 6.3-10.7 [facility] Platelet mean volume (Bld) [Entitic vol] Platelet mean volume [Entitic volume] in Blood by Automated count 6.3-10.7 [facility] Platelets Auto (Bld) [#/Vol] on 01-19-2021 Platelets (Bld) [#/Vol] 341 10*3/uL 150-450 [facility] Platelets (Bld) [#/Vol] Platelets [#/volume] in Blood by Automated count 150-450 [facility] Polychromasia [Presence] in Blood by Light microscopyon 01-19-2021 Polychromasia LM Ql (Bld) Slight [facility] Polychromasia LM Ql (Bld) Polychromasia [Presence] in Blood by Light microscopy [facility] RBC Auto (Bld) [#/Vol]on RBC (Bld) [#/Vol] 3.52 10*6/uL Low 3.60-5.00 [facility] RBC (Bld) [#/Vol] Erythrocytes [#/volu me] in Blood by Automated count Low 3.60-5.00 [facility] RBC morphologyon 01-19-2021 RBC morphology finding Nom (Bld) N/A [facility] RBC morphology finding Nom (d) RBC morphology [facility] Teardrop cell detectionon Dacrocytes LM Ql (Bld) Slight Fi [facility] Dacrocytes LM Ql (Bld) Teardrop cell detection [facility] WBC Auto (Bld) [#/Vol]on WBC (Bld) [#/Vol] Leukocytes [#/volume ] in Blood by Automated count 3.8-11.6 [facility] Bilirubin Test strip Ql (U)o n 01-11-2020 Bilirubin Ql (U) Bilirubin.total [Pre sence] in Urine by Test strip Negative [facility] Bilirubin Ql (U) Negative Negative [facility] Color Auto (U)on 01-11-2020 Color (U) Yellow Yellow [facility] Color (U) Color of Urine by Auto Yellow [facility] Ketones Auto test strip (U) [Mass/Vol]on 01-11-2020 Ketones (U) [Mass/Vol] Negative Negative [facility] Ketones (U) [Mass/Vol] Urine ketones chiara surement by automated test strip (mass/volume) Negative [facility] Nitrite Test strip Ql (U)on 01-11-2020 Nitrite Ql (U) Nitrite [Presence] i n Urine by Test strip Negative [facility] Nitrite Ql (U) Negative Negative [facility] Protein Auto test strip (U) [Mass/Vol]on 01-11-2020 Protein (U) [Mass/Vol] Negative Negative [facility] Protein (U) [Mass/Vol] Urine protein chiara surement by automated test strip (mass/volume) Negative [facility] Specific gravity Auto test s trip (U) [Rel density]on 01-11-2020 Specific gravity (U) [Rel density] 1.009 1.001-1.03 0 [facility] Specific gravity (U) [Rel density] Specific gravity of Urine by Automated test strip 1.001-1.03 0 [facility] Urine clarity by refractomet ry automatedon 01-11-2020 Clarity Refractometry automated (U) Clear Clear [facility] Clarity Refractometry automated (U) Urine clarity by refractometry automated Clear [facility] Urine glucose measurement by automated test strip (mass/volume)on 01-11-2020 Glucose Auto test strip (U) [Mass/Vol] Normal mg/dL [facility] Glucose Auto test strip (U) [Mass/Vol] Urine glucose measurement by automated test strip (mass/volume) [facility] Urine hemoglobin detection b y automated test stripon 01-11-2020 Hemoglobin Auto test strip Ql (U) Negative Negative [facility] Hemoglobin Auto test strip Ql (U) Urine hemoglobin detection by automated test strip Negative [facility] Urine leukocyte esterase det ection by automated test stripon 01-11-2020 Leukocyte esterase Auto test strip Ql (U) Negative Negative [facility] Leukocyte esterase Auto test strip Ql (U) Urine leukocyte esterase detection by automated test strip Negative [facility] Urobilinogen Auto test strip (U) [Mass/Vol]on 01-11-2020 Urobilinogen (U) [Mass/Vol] Normal mg/dL Normal [facility] Urobilinogen (U) [Mass/Vol] Urine urobilinogen measurement by automated test strip (mass/volume) [facility] pH Auto test strip (U)on pH (U) 6.5 [pH] 5.0-9.0 [facility] pH (U) Urine pH measurement by automated test strip 5.0-9.0 [facility] Albumin [Mass/volume] in Ser um or Plasmaon 01-01-2020 Albumin [Mass/Vol] 3.2 g/dL 3.2-5.5 [facility] Albumin [Mass/Vol] Albumin [Mass/volume ] in Serum or Plasma 3.2-5.5 [facility] Alkaline phosphatase [Enzyma tic activity/volume] in Serum or Plasmaon 01-01-2020 ALP [Catalytic activity/Vol] Alkaline phosphatase [Enzymatic activity/volume] in Serum or Plasma High 32-92 [facility] Aspartate aminotransferase [ Enzymatic activity/volume] in Serum or Plasmaon 01-01-2020 AST [Catalytic activity/Vol] Aspartate aminotransferase [Enzymatic activity/volume] in Serum or Plasma 10-42 [facility] Bilirubin.total [Mass/volume ] in Serum or Plasmaon 01-01-2020 Bilirubin [Mass/Vol] Bilirubin.total [Mass/volume] in Serum or Plasma 0.3-1.2 [facility] Calcium [Mass/volume] in Ser um or Plasmaon 01-01-2020 Calcium [Mass/Vol] Calcium [Mass/volume ] in Serum or Plasma 8.2-10.2 [facility] Carbon dioxide, total [Moles /volume] in Serum or Plasmaon 01-01-2020 CO2 [Moles/Vol] Carbon dioxide, tota l [Moles/volume] in Serum or Plasma Low 22.0-30.0 [facility] Chloride [Moles/volume] in S rian or Plasmaon 01-01-2020 Chloride [Moles/Vol] Chloride [Moles/vol ume] in Serum or Plasma 95-114 [facility] Creatinine and Glomerular fi ltration rate.predicted panel (S/P/Bld)on 01-01-2020 Creatinine [Mass/Vol] 0.85 mg/dL 0.44-1.03 [facility] Serum or plasma creatinine measurement with calculation of estimated glomerular filtr Serum or plasma creatinine measurement with calculation of estimated glomerular filtr 0.44-1.03 [facility] Estimated glomerular filtrat ion rate (GFR) non- Americanon 01-01-2020 GFR/1.73 sq M.predicted among non-blacks MDRD (S/P/Bld) [Vol rate/Area] mL/min/{1.73_m2} [facility] GFR/1.73 sq M.predicted among non-blacks MDRD (S/P/Bld) [Vol rate/Area] Estimated glomerular filtration rate (GFR) non- [facility] Folate [Mass/volume] in Seru m or Plasmaon 01-01-2020 Folate [Mass/Vol] 6.7 ng/mL >4.0 [facility] Comment on above: Folate reference ran ge: >5.9 ng/mlThe [facility] technical consultation on folate and vitamin [id number] has determined that folate concentrations lessthan 4 ng/ml are considered deficient. Folate [Mass/Vol] Folate [Mass/volume] in Serum or Plasma >4.0 [facility] Comment on above: Folate reference ran ge: >5.9 ng/mlThe WHO technical consultation on folate and vitamin [id number] has determined that folate concentrations lessthan 4 ng/ml are considered deficient. Globulin Calc (S) [Mass/Vol] on 01-01-2020 Globulin (S) [Mass/Vol] 3.3 g/dL [facility] Globulin (S) [Mass/Vol] Serum globulin measurement by calculation (mass/volume) [facility] Glucose [Mass/volume] in Ser um or Plasmaon 01-01-2020 Glucose [Mass/Vol] Glucose [Mass/volume ] in Serum or Plasma High 70-100 [facility] Comment on above: ADA recommended refe rence rangeRandom Glucose Reference Range is dependent on time and content of last meal. Glucose of more than 200 mg/dL in a nonstressed, ambulatory subject supports the diagnosis of Diabetes Mellitus. Laboratory - Chemistry and C hemistry - challengeon 01-01-2020 Cobalamin (Vitamin B12) [Mass/Vol] 261 pg/mL 180-914 [facility] GFR/1.73 sq M.predicted MDRD (S/P/Bld) [Vol rate/Area] mL/min/{1.73_m2} [facility] Comment on above: GFR estimated refere nce range: According to KDOQI guidelines, <60 ml/min/1.73m2 is sufficient to diagnose a patient with chronic kidney disease. Laboratory - Hematology and Cell countson 01-01-2020 WBC (Bld) [#/Vol] 6.1 10*3/uL 4.5-11.0 [facility] No Panel Informationon 12-31 Pharmacy Creatinine Clearance (Chem [id number] [facility] Potassium [Moles/volume] in Serum or Plasmaon 01-01-2020 Potassium [Moles/Vol] Potassium [Moles/v olume] in Serum or Plasma 3.5-5.1 [facility] Protein [Mass/volume] in Ser um or Plasmaon 01-01-2020 Protein [Mass/Vol] 6.5 g/dL 6.1-7.9 [facility] Protein [Mass/Vol] Protein [Mass/volume ] in Serum or Plasma 6.1-7.9 [facility] Serum or plasma alanine liz otransferase measurement without P-5'-P (enzymatic activion 01-01-2020 ALT No additional P-5'-P [Catalytic activity/Vol] 13 U/L [facility] ALT No additional P-5'-P [Catalytic activity/Vol] Serum or plasma alanine aminotransferase measurement without P-5'-P (enzymatic activi [facility] Serum or plasma albumin/glob ulin mass ratioon 01-01-2020 Albumin/Globulin [Mass ratio] 1.0 {ratio} [facility] Albumin/Globulin [Mass ratio] Serum or plasma albumin/globulin mass ratio [facility] Serum or plasma alkaline bria sphatase measurement (enzymatic activity/volume)on 01-01-2020 ALP [Catalytic activity/Vol] 93 U/L High 32-92 [facility] Serum or plasma aspartate am inotransferase measurement (enzymatic activity/volume)on 01-01-2020 AST [Catalytic activity/Vol] 13 U/L [facility] Serum or plasma calcium chris urement (mass/volume)on 01-01-2020 Calcium [Mass/Vol] 8.6 mg/dL 8.2-10.2 [facility] Serum or plasma chloride chiara surement (moles/volume)on 01-01-2020 Chloride [Moles/Vol] 107 mmol/L 95-114 [facility] Serum or plasma glucose chris urement (mass/volume)on 01-01-2020 Glucose [Mass/Vol] 108 mg/dL High 70-100 [facility] Comment on above: ADA recommended refe rence rangeRandom Glucose Reference Range is dependent on time and content of last meal. Glucose of more than 200 mg/dL in a nonstressed, ambulatory subject supports the diagnosis of Diabetes Mellitus. Serum or plasma potassium me asurement (moles/volume)on 01-01-2020 Potassium [Moles/Vol] 4.4 mmol/L 3.5-5.1 [facility] Serum or plasma sodium measu rement (moles/volume)on 01-01-2020 Sodium [Moles/Vol] 137 mmol/L 136-146 [facility] Serum or plasma total biliru bin measurement (mass/volume)on 01-01-2020 Bilirubin [Mass/Vol] 0.8 mg/dL 0.3-1.2 [facility] Serum or plasma total carbon dioxide measurement (moles/volume)on 01-01-2020 CO2 [Moles/Vol] 20.8 mmol/L Low 22.0-30.0 [facility] Serum or plasma urea nitroge n measurement (mass/volume)on 01-01-2020 Urea nitrogen [Mass/Vol] 16 mg/dL 04-27 [facility] Sodium [Moles/volume] in Ser um or Plasmaon 01-01-2020 Sodium [Moles/Vol] Sodium [Moles/volume ] in Serum or Plasma 136-146 [facility] Urea nitrogen [Mass/volume] in Serum or Plasmaon 01-01-2020 Urea nitrogen [Mass/Vol] Urea nitrogen [Mass/volume] in Serum or Plasma 04-27 [facility] Vital Signs Date Time Vital Sign Value Performing Clinician Facility 04-29-2025 11:32-0400 Body height 170.18 cm [facility] DO Work Phone: [facility] 04-29-2025 11:32-0400 Body mass index (BMI) [Ratio] 37 kg/m2 Shalom Jones DO Work Phone: [facility] 04-29-2025 11:32-0400 Body weight 107.16 kg Shalom Ball DO Work Phone: [facility] 04-29-2025 11:32-0400 Diastolic blood pressure 82 mm[Hg] Shalom Ball DO Work Phone: [facility] 04-29-2025 11:32-0400 Heart rate 94 /min Shalom Ball DO Work Phone: [facility] 04-29-2025 11:32-0400 Respiratory rate 12 /min Shalom Ball DO Work Phone: [facility] 04-29-2025 11:32-0400 Systolic blood pressure 123 mm[Hg] Shalom Ball DO Work Phone: [facility] 02-11-2025 12:59-0400 Body height 170.18 cm Shalom Ball DO Work Phone: [facility] 02-11-2025 12:59-0400 Body mass index (BMI) [Ratio] 37.9 kg/m2 Shalom Ball DO Work Phone: [facility] 02-11-2025 12:59-0400 Body temperature 98 [degF] Shalom Ball DO Work Phone: [facility] 02-11-2025 12:59-0400 Body weight 109.76 kg Shalom Ball DO Work Phone: [facility] 02-11-2025 12:59-0400 Diastolic blood pressure 79 mm[Hg] Shalom Ball DO Work Phone: [facility] 02-11-2025 12:59-0400 Heart rate 94 /min Shalom Ball DO Work Phone: [facility] 02-11-2025 12:59-0400 Respiratory rate 20 /min Shalom Ball DO Work Phone: [facility] 02-11-2025 12:59-0400 SaO2% (BldA) [Mass fraction] 96 % Shalom Ball DO Work Phone: [facility] 02-11-2025 12:59-0400 Systolic blood pressure 126 mm[Hg] Shalom Ball DO Work Phone: [facility] 01-13-2025 14:26-0400 Body height 170.18 cm Shalom Ball DO Work Phone: [facility] 01-13-2025 14:26-0400 Body mass index (BMI) [Ratio] 37.8 kg/m2 Shalom Ball DO Work Phone: [facility] 01-13-2025 14:26-0400 Body weight 109.54 kg Shalom Ball DO Work Phone: [facility] 01-13-2025 14:26-0400 Diastolic blood pressure 75 mm[Hg] Shalom Ball DO Work Phone: [facility] 01-13-2025 14:26-0400 Heart rate 98 /min Shalom Ball DO Work Phone: [facility] 01-13-2025 14:26-0400 Respiratory rate 12 /min Shalom Ball DO Work Phone: [facility] 01-13-2025 14:26-0400 Systolic blood pressure 122 mm[Hg] Shalom Ball DO Work Phone: [facility] 12-08-2024 13:49-0400 Body height 170.18 cm Shalom Ball DO Work Phone: [facility] 12-08-2024 13:49-0400 Body mass index (BMI) [Ratio] 37.2 kg/m2 Shalom Ball DO Work Phone: [facility] 12-08-2024 13:49-0400 Body weight 107.72 kg Shalom Ball DO Work Phone: [facility] 12-08-2024 13:49-0400 Diastolic blood pressure 83 mm[Hg] Shalom Ball DO Work Phone: [facility] 12-08-2024 13:49-0400 Heart rate 101 /min Shalom Ball DO Work Phone: [facility] 12-08-2024 13:49-0400 Respiratory rate 12 /min Shalom Ball DO Work Phone: [facility] 12-08-2024 13:49-0400 Systolic blood pressure 142 mm[Hg] Shalom Ball DO Work Phone: [facility] 11-19-2024 14:22-0400 Body height 170.18 cm Shalom Ball DO Work Phone: [facility] 11-19-2024 14:22-0400 Body mass index (BMI) [Ratio] 38.7 kg/m2 Shalom Ball DO Work Phone: [facility] 11-19-2024 14:22-0400 Body weight 112.03 kg Shalom Ball DO Work Phone: [facility] 11-19-2024 14:22-0400 Diastolic blood pressure 81 mm[Hg] Shalom Ball DO Work Phone: [facility] 11-19-2024 14:22-0400 Heart rate 86 /min Shalom Ball DO Work Phone: [facility] 11-19-2024 14:22-0400 Respiratory rate 20 /min Shalom Ball DO Work Phone: [facility] 11-19-2024 14:22-0400 SaO2% (BldA) [Mass fraction] 98 % Shalom Ball DO Work Phone: [facility] 11-19-2024 14:22-0400 Systolic blood pressure 143 mm[Hg] Shalom Ball DO Work Phone: [facility] 09-09-2024 13:33-0500 Body height 170.18 cm Shalom Ball DO Work Phone: [facility] 09-09-2024 13:33-0500 Body mass index (BMI) [Ratio] 38.2 kg/m2 Shalom Ball DO Work Phone: [facility] 09-09-2024 13:33-0500 Body weight 110.93 kg Shalom Ball DO Work Phone: [facility] 09-09-2024 13:33-0500 Diastolic blood pressure 83 mm[Hg] Shalom Ball DO Work Phone: [facility] 09-09-2024 13:33-0500 Heart rate 96 /min Shalom Ball DO Work Phone: [facility] 09-09-2024 13:33-0500 Respiratory rate 12 /min Shalom Ball DO Work Phone: [facility] 09-09-2024 13:33-0500 Systolic blood pressure 140 mm[Hg] Shalom Ball DO Work Phone: [facility] 09-07-2024 13:00-0500 Diastolic blood pressure 77 mm[Hg] Shalom Ball DO Work Phone: [facility] 09-07-2024 13:00-0500 Heart rate 98 /min Shalom Ball DO Work Phone: [facility] 09-07-2024 13:00-0500 Respiratory rate 19 /min Shalom Ball DO Work Phone: [facility] 09-07-2024 13:00-0500 SaO2% (BldA) [Mass fraction] 95 % Shalom Ball DO Work Phone: [facility] 09-07-2024 13:00-0500 Systolic blood pressure 141 mm[Hg] Shalom Ball DO Work Phone: [facility] 08-31-2024 13:07-0500 Body temperature 98.1 [degF] Shalom Ball DO Work Phone: [facility] 08-26-2024 10:58-0500 Body temperature 97.9 [degF] [facility] 08-26-2024 10:58-0500 Body weight 110.22 kg [facility] 08-26-2024 10:58-0500 Diastolic blood pressure 79 mm[Hg] [facility] 08-26-2024 10:58-0500 Heart rate 88 /min [facility] 08-26-2024 10:58-0500 Respiratory rate 16 /min [facility] 08-26-2024 10:58-0500 SaO2% (BldA) [Mass fraction] 97 % [facility] 08-26-2024 10:58-0500 Systolic blood pressure 117 mm[Hg] [facility] 03-09-2024 13:47-0400 Body height 168.91 cm DO Shalom Ball Work Phone: [facility] 03-09-2024 13:47-0400 Body mass index (BMI) [Ratio] 38.7 kg/m2 DO Shalom Ball Work Phone: [facility] 03-09-2024 13:47-0400 Body weight 110.44 kg DO Shalom Ball Work Phone: [facility] 03-09-2024 13:47-0400 Diastolic blood pressure 80 mm[Hg] DO Shalom Ball Work Phone: [facility] 03-09-2024 13:47-0400 Heart rate 87 /min DO Shalom Ball Work Phone: [facility] 03-09-2024 13:47-0400 Respiratory rate 12 /min DO Shalom Ball Work Phone: [facility] 03-09-2024 13:47-0400 Systolic blood pressure 122 mm[Hg] DO Shalom Ball Work Phone: [facility] 02-13-2024 13:24-0400 Body temperature 97.9 [degF] DO Shalom Ball Work Phone: [facility] 02-13-2024 13:24-0400 Body weight 110.67 kg DO Shalom Ball Work Phone: [facility] 02-13-2024 13:24-0400 Diastolic blood pressure 77 mm[Hg] DO Shalom Ball Work Phone: [facility] 02-13-2024 13:24-0400 Heart rate 97 /min DO Shalom Ball Work Phone: [facility] 02-13-2024 13:24-0400 Respiratory rate 16 /min DO Shalom Ball Work Phone: [facility] 02-13-2024 13:24-0400 SaO2% (BldA) [Mass fraction] 98 % DO Shalom Ball Work Phone: [facility] 02-13-2024 13:24-0400 Systolic blood pressure 119 mm[Hg] DO Shalom Ball Work Phone: [facility] 01-16-2024 13:49-0400 Body height 168.91 cm DO Shalom Ball Work Phone: [facility] 01-16-2024 13:49-0400 Body mass index (BMI) [Ratio] 38.9 kg/m2 DO Shalom Ball Work Phone: [facility] 01-16-2024 13:49-0400 Body weight 111 kg DO Shalom Ball Work Phone: [facility] 11-26-2023 16:02-0400 Diastolic blood pressure 78 mm[Hg] DO Shalom Ball Work Phone: [facility] 11-26-2023 16:02-0400 Heart rate 82 /min DO Shalom Ball Work Phone: [facility] 11-26-2023 16:02-0400 Respiratory rate 18 /min DO Shalom Ball Work Phone: [facility] 11-26-2023 16:02-0400 SaO2% (BldA) [Mass fraction] 99 % DO Shalom Ball Work Phone: [facility] 11-26-2023 16:02-0400 Systolic blood pressure 138 mm[Hg] DO Shalom Ball Work Phone: [facility] 11-26-2023 14:31-0400 Body temperature 98.1 [degF] DO Shalom Ball Work Phone: [facility] 11-12-2023 12:57-0400 Body height 168.91 cm DO Shalom Ball Work Phone: [facility] 11-12-2023 12:57-0400 Body mass index (BMI) [Ratio] 39 kg/m2 DO Shalom Ball Work Phone: [facility] 11-12-2023 12:57-0400 Body temperature 97.4 [degF] DO Shalom Ball Work Phone: [facility] 11-12-2023 12:57-0400 Body weight 111.35 kg DO Shalom Ball Work Phone: [facility] 11-12-2023 12:57-0400 Diastolic blood pressure 71 mm[Hg] DO Shalom Ball Work Phone: [facility] 11-12-2023 12:57-0400 Heart rate 81 /min DO Shalom Ball Work Phone: [facility] 11-12-2023 12:57-0400 Respiratory rate 18 /min DO Shalom Ball Work Phone: [facility] 11-12-2023 12:57-0400 SaO2% (BldA) [Mass fraction] 97 % DO Shalom Ball Work Phone: [facility] 11-12-2023 12:57-0400 Systolic blood pressure 133 mm[Hg] DO Shalom Ball Work Phone: [facility] 11-05-2023 13:38-0400 Body height 168.91 cm DO Shalom Ball Work Phone: [facility] 11-05-2023 13:38-0400 Body mass index (BMI) [Ratio] 39.1 kg/m2 DO Shalom Ball Work Phone: [facility] 11-05-2023 13:38-0400 Body weight 111.69 kg DO Shalom Ball Work Phone: [facility] 11-05-2023 13:38-0400 Diastolic blood pressure 81 mm[Hg] DO Shalom Ball Work Phone: [facility] 11-05-2023 13:38-0400 Heart rate 80 /min DO Shalom Ball Work Phone: [facility] 11-05-2023 13:38-0400 Respiratory rate 12 /min DO Shalom Ball Work Phone: [facility] 11-05-2023 13:38-0400 Systolic blood pressure 139 mm[Hg] DO Shalom Ball Work Phone: [facility] 08-14-2023 13:30-0500 Body height 168.91 cm Shalom Ball Other [facility] 08-14-2023 13:30-0500 Body mass index (BMI) [Ratio] 39.2 kg/m2 Shalom Ball Other [facility] Other 08-14-2023 13:30-0500 Body weight 111.86 kg Shalom Ball Other [facility] Other 08-14-2023 13:30-0500 Body weight 111.85 kg DO Shalom Ball Work Phone: [facility] 08-14-2023 13:30-0500 Diastolic blood pressure 76 mm[Hg] Shalom Ball Other [facility] 08-14-2023 13:30-0500 Respiratory rate 12 /min Shalom Ball Other [facility] Other 08-14-2023 13:30-0500 Systolic blood pressure 116 mm[Hg] Shalom Ball Other [facility] 08-13-2023 12:57-0500 Body height 167.64 cm DO Shalom Ball Work Phone: [facility] 08-13-2023 12:57-0500 Body weight 111.67 kg DO Shalom Ball Work Phone: [facility] 08-13-2023 12:57-0500 Diastolic blood pressure 77 mm[Hg] DO Shalom Ball Work Phone: [facility] 08-13-2023 12:57-0500 Heart rate 76 /min DO Shalom Ball Work Phone: [facility] 08-13-2023 12:57-0500 Respiratory rate 20 /min DO Shalom Ball Work Phone: [facility] 08-13-2023 12:57-0500 SaO2% (BldA) [Mass fraction] 99 % DO Shalom Ball Work Phone: [facility] 08-13-2023 12:57-0500 Systolic blood pressure 124 mm[Hg] DO Shalom Ball Work Phone: [facility] 08-06-2023 13:30-0500 Body height 168.91 cm Ricky Perdomo Other [facility] 08-06-2023 13:30-0500 Body mass index (BMI) [Ratio] 38.15 kg/m2 Ricky Perdomo Other [facility] Other 08-06-2023 13:30-0500 Body weight 108.86 kg Ricky Perdomo Other [facility] 08-06-2023 13:30-0500 Diastolic blood pressure 74 mm[Hg] Ricky Perdomo Other [facility] 08-06-2023 13:30-0500 Systolic blood pressure 137 mm[Hg] Ricky Perdomo Other [facility] 06-13-2023 13:00-0500 Body temperature 97.2 [degF] DO Shalom Ball Work Phone: [facility] 06-13-2023 13:00-0500 Body weight 111.58 kg DO Shalom Ball Work Phone: [facility] 06-13-2023 13:00-0500 Diastolic blood pressure 75 mm[Hg] DO Shalom Ball Work Phone: [facility] 06-13-2023 13:00-0500 Heart rate 88 /min DO Shalom Ball Work Phone: [facility] 06-13-2023 13:00-0500 Respiratory rate 16 /min DO Shalom Ball Work Phone: [facility] 06-13-2023 13:00-0500 SaO2% (BldA) [Mass fraction] 95 % DO Shalom Ball Work Phone: [facility] 06-13-2023 13:00-0500 Systolic blood pressure 121 mm[Hg] DO Shalom Ball Work Phone: [facility] 05-15-2023 14:32-0400 Diastolic blood pressure 60 mm[Hg] DO Shalom Ball Work Phone: [facility] 05-15-2023 14:32-0400 Heart rate 75 /min DO Shalom Ball Work Phone: [facility] 05-15-2023 14:32-0400 Respiratory rate 18 /min DO Shalom Ball Work Phone: [facility] 05-15-2023 14:32-0400 SaO2% (BldA) [Mass fraction] 97 % DO Shalom Ball Work Phone: [facility] 05-15-2023 14:32-0400 Systolic blood pressure 107 mm[Hg] DO Shalom Ball Work Phone: [facility] 05-15-2023 12:04-0400 Body height 168.91 cm DO Shalom Ball Work Phone: [facility] 05-15-2023 12:04-0400 Body temperature 98.1 [degF] DO Shalom Ball Work Phone: [facility] 05-15-2023 12:04-0400 Body weight 109.76 kg DO Shalom Ball Work Phone: [facility] 05-09-2023 13:17-0400 Body temperature 97.9 [degF] DO Shalom Ball Work Phone: [facility] 05-09-2023 13:17-0400 Diastolic blood pressure 65 mm[Hg] DO Shalom Ball Work Phone: [facility] 05-09-2023 13:17-0400 Heart rate 110 /min DO Shalom Ball Work Phone: [facility] 05-09-2023 13:17-0400 Respiratory rate 18 /min DO Shalom Ball Work Phone: [facility] 05-09-2023 13:17-0400 SaO2% (BldA) [Mass fraction] 99 % DO Shalom Ball Work Phone: [facility] 05-09-2023 13:17-0400 Systolic blood pressure 152 mm[Hg] DO Shalom Ball Work Phone: [facility] 05-07-2023 13:30-0400 Body height 168.91 cm Ricky Perdomo Other [facility] [place] Other 05-07-2023 13:30-0400 Body mass index (BMI) [Ratio] 38.49 kg/m2 Ricky Perdomo Other [facility] Other 05-07-2023 13:30-0400 Body weight 109.82 kg Ricky Perdomo Other [facility] Other 05-07-2023 13:30-0400 Diastolic blood pressure 78 mm[Hg] Ricky Perdomo Other [employer] Other 05-07-2023 13:30-0400 Systolic blood pressure 129 mm[Hg] Ricky Perdomo Other [employer] Other 04-26-2023 13:02-0400 Body weight 110.67 kg DO Shalom Ball Work Phone: [facility] 03-12-2023 13:03-0400 Body temperature 97.8 [degF] DO Shalom Ball Work Phone: [facility] 03-12-2023 13:03-0400 Body weight 112.49 kg DO Shalom Ball Work Phone: [facility] 03-12-2023 13:03-0400 Diastolic blood pressure 53 mm[Hg] DO Shalom Ball Work Phone: [facility] 03-12-2023 13:03-0400 Heart rate 75 /min DO Shalom Ball Work Phone: [facility] 03-12-2023 13:03-0400 Respiratory rate 16 /min DO Shalom Ball Work Phone: [facility] 03-12-2023 13:03-0400 SaO2% (BldA) [Mass fraction] 100 % DO Shalom Ball Work Phone: [facility] 03-12-2023 13:03-0400 Systolic blood pressure 111 mm[Hg] DO Shalom Ball Work Phone: [facility] 01-08-2023 13:33-0400 Body temperature 97.8 [degF] DO Shalom Ball Work Phone: [facility] 01-08-2023 13:33-0400 Body weight 115.21 kg DO Shalom Ball Work Phone: [facility] 01-08-2023 13:33-0400 Diastolic blood pressure 64 mm[Hg] DO Shalom Ball Work Phone: [facility] 01-08-2023 13:33-0400 Heart rate 84 /min DO Shalom Ball Work Phone: [facility] 01-08-2023 13:33-0400 Respiratory rate 16 /min DO Shalom Ball Work Phone: [facility] 01-08-2023 13:33-0400 SaO2% (BldA) [Mass fraction] 98 % DO Shalom Ball Work Phone: [facility] 01-08-2023 13:33-0400 Systolic blood pressure 132 mm[Hg] DO Shalom Ball Work Phone: [facility] 11-19-2022 14:30-0400 Body height 168.91 cm Shalom Ball Other [employer] Other 11-19-2022 14:30-0400 Body mass index (BMI) [Ratio] 39.58 kg/m2 Shalom Ball Other [employer] Other 11-19-2022 14:30-0400 Body weight 112.95 kg Shalom Ball Other [employer] Other 11-19-2022 14:30-0400 Diastolic blood pressure 76 mm[Hg] Shalom Ball Other [employer] Other 11-19-2022 14:30-0400 Respiratory rate 16 /min Shalom Ball Other [employer] Other 11-19-2022 14:30-0400 Systolic blood pressure 122 mm[Hg] Shalom Ball Other [employer] Other 10-24-2022 15:45-0400 Body height 168.91 cm Shalom Ball Other [employer] Other 10-24-2022 15:45-0400 Body mass index (BMI) [Ratio] 39.77 kg/m2 Shalom Ball Other [employer] Other 10-24-2022 15:45-0400 Body weight 113.49 kg Shalom Ball Other [employer] Other 10-24-2022 15:45-0400 Diastolic blood pressure 81 mm[Hg] Shalom Ball Other [employer] Other 10-24-2022 15:45-0400 Respiratory rate 12 /min Shalom Ball Other [employer] Other 10-24-2022 15:45-0400 Systolic blood pressure 137 mm[Hg] Shalom Ball Other [employer] Other 10-10-2022 13:30-0500 Body height 168.91 cm Shalom Ball Other [employer] Other 10-10-2022 13:30-0500 Body mass index (BMI) [Ratio] 40.28 kg/m2 Shalom Ball Other [facility] Other 10-10-2022 13:30-0500 Body weight 114.94 kg Shalom Ball Other [employer] Other 10-10-2022 13:30-0500 Diastolic blood pressure 76 mm[Hg] Shalom Ball Other [employer] Other 10-10-2022 13:30-0500 Respiratory rate 12 /min Shalom Ball Other [facility] Other 10-10-2022 13:30-0500 Systolic blood pressure 122 mm[Hg] Shalom Ball Other [employer] Other 08-09-2022 13:08-0500 Body temperature 97.8 [degF] DO Shalom Ball Work Phone: [facility] 08-09-2022 13:08-0500 Body weight 113.8 kg DO Shalom Ball Work Phone: [facility] 08-09-2022 13:08-0500 Diastolic blood pressure 65 mm[Hg] DO Shalom Ball Work Phone: [facility] 08-09-2022 13:08-0500 Heart rate 101 /min DO Shalom Ball Work Phone: [facility] 08-09-2022 13:08-0500 Respiratory rate 18 /min DO Shalom Jones Work Phone: [facility] 08-09-2022 13:08-0500 SaO2% (BldA) [Mass fraction] 98 % DO Shalom Jones Work Phone: [facility] 08-09-2022 13:08-0500 Systolic blood pressure 107 mm[Hg] DO Shalom Jones Work Phone: [facility] 06-21-2022 16:30-0500 Body height 167.64 cm DO Shalom Jones Work Phone: [facility] Encounters Encounter Date Encounter Type Care Provider Facility Start: 04-29-2025 End: 04-29-2025 ambulatory Shalom Jones DO Work Phone: [facility] Work Phone: Start: 04-29-2025 End: 04-29-2025 Patient encounter procedure Shalom Jones DO -[facility] Work Phone: Start: 03-24-2025 Registered Recurring Taina Thomas [email or web address] Acute Work Phone: Start: 03-24-2025 ambulatory Taina Toussaint Facility:[facility] Start: 03-24-2025 End: 03-24-2025 Patient encounter procedure Shal[facility] DO -[facility] Work Phone: Start: 03-24-2025 End: 03-24-2025 ambulatory Shalom Jones DO Work Phone: [facility] Work Phone: Start: 02-11-2025 End: 02-11-2025 External Result Encounter Shiela Chan [employer] Work Phone: [facility] External Department Unsolicited Start: 02-11-2025 End: 02-11-2025 External Result Encounter Shiela Chan [employer] Work Phone: [facility] External Department Unsolicited Start: 02-11-2025 Registered Recurring Taina Thomas MD [facility] Acute Work Phone: Start: 02-11-2025 End: 02-11-2025 ambulatory Shalom Ball DO Work Phone: [facility] Work Phone: Start: 02-11-2025 End: 02-11-2025 Patient encounter procedure Francesca Devries [facility] Work Phone: Start: 02-08-2025 End: 02-08-2025 Clinisync Result Encounter Francesca Devries [employer] [facility] External Department Unsolicited Start: 02-08-2025 End: 02-08-2025 Clinisync Result Encounter Francesca Devries [employer] [facility] External Department Unsolicited Start: 02-08-2025 End: 02-08-2025 ambulatory Shalom Ball DO Work Phone: [facility] Work Phone: Start: 02-08-2025 End: 02-08-2025 Patient encounter procedure Shalom Ball DO -[facility] Work Phone: Start: 01-13-2025 End: 01-13-2025 ambulatory Shalom Ball DO Work Phone: [facility] Work Phone: Start: 01-13-2025 End: 01-13-2025 Patient encounter procedure Shalom Ball DO Work Phone: [facility] Work Phone: Start: 01-05-2025 Non-patient / Non-visit Shalom Ball DO Work Phone: [facility] Work Phone: Start: 12-31-2024 End: 12-31-2024 ambulatory Shalom Ball DO Work Phone: [facility] Work Phone: Start: 12-31-2024 End: 12-31-2024 Departed Referred Shalom Ball DO Work Phone: [facility] Start: 12-31-2024 Non-patient / Non-visit Shalom Ball DO Work Phone: [facility] Work Phone: Start: 12-30-2024 End: 12-30-2024 ambulatory Shalom Ball DO Work Phone: [facility] Work Phone: Start: 12-30-2024 End: 12-30-2024 Patient encounter procedure Shalom Ball DO Work Phone: [facility] Work Phone: Start: 12-08-2024 End: 12-08-2024 ambulatory Shalom Ball DO Work Phone: [facility] Work Phone: Start: 12-08-2024 End: 12-08-2024 Patient encounter procedure Shalom Ball DO Work Phone: [facility] Physician [facility] Work Phone: Start: 11-30-2024 End: 11-30-2024 ambulatory Shalom Ball DO Work Phone: [facility] Work Phone: Start: 11-30-2024 End: 11-30-2024 Patient encounter procedure Shalom Ball DO Work Phone: [facility] Physician [facility] Work Phone: Start: 11-19-2024 Registered Recurring Shalom Ball DO [facility] [place] [facility] Work Phone: Start: 11-19-2024 End: 11-19-2024 Patient encounter procedure Shalom Ball DO Work Phone: [facility] Physician [facility] Work Phone: Start: 10-27-2024 End: 10-27-2024 ambulatory Shalom Ball DO Work Phone: [facility] Work Phone: Start: 10-27-2024 End: 10-27-2024 Patient encounter procedure Shalom Ball DO Work Phone: [facility] Physician [facility] Work Phone: Start: 10-20-2024 Non-patient / Non-visit Shalom Ball DO Work Phone: [facility] Physician [facility] Work Phone: Start: 09-09-2024 End: 09-09-2024 ambulatory Shalom Jones DO Work Phone: [facility] Work Phone: Start: 09-09-2024 End: 09-09-2024 Patient encounter procedure Shalom Ball DO Work Phone: [facility] Physician [facility] Work Phone: Start: 09-07-2024 Registered Recurring Shalom Jones DO Work [facility] [place] [facility] Work Phone: Start: 08-26-2024 End: 08-26-2024 ambulatory [facility] Work Phone: Start: 08-26-2024 End: 08-26-2024 Patient encounter procedure [facility] Work Phone: Start: 08-11-2024 Non-patient / Non-visit [facility] Work Phone: Start: 07-09-2024 End: 07-09-2024 Patient encounter procedure [facility] Physician [facility] Work Phone: Start: 05-19-2024 End: 05-19-2024 ambulatory [facility] Work Phone: Start: 05-19-2024 End: 05-19-2024 Patient encounter procedure [facility] Physician [facility] Work Phone: Start: 05-15-2024 Non-patient / Non-visit [facility] Work Phone: Start: 05-01-2024 End: 11-26-2024 Telephone encounter Lana Emilio A [facility] Start: 04-14-2024 End: 04-14-2024 ambulatory DO Shalom Ball Work Phone: [facility] Work Phone: Start: 04-14-2024 End: 04-14-2024 Patient encounter procedure DO Shalom Ball Work Phone: [facility] Physician [facility] Work Phone: Start: 03-09-2024 End: 03-09-2024 ambulatory DO Shalom Ball Work Phone: [facility] Work Phone: Start: 03-09-2024 End: 03-09-2024 Patient encounter procedure DO Shalom Ball Work Phone: [facility] Physician [facility] Work Phone: Start: 02-13-2024 End: 02-13-2024 ambulatory DO Shalom Ball Work Phone: [facility] Work Phone: Start: 02-13-2024 End: 02-13-2024 Patient encounter procedure DO Shalom Ball Work Phone: [facility] Work Phone: Start: 02-13-2024 Registered Recurring DO Benjam in Ball [facility] [place] [facility] Work Phone: Start: 02-04-2024 End: 02-04-2024 ambulatory DO Shalom Ball Work Phone: [facility] Work Phone: Start: 02-04-2024 End: 02-04-2024 Patient encounter procedure DO Shalom Ball Work Phone: [facility] Work Phone: Start: 01-16-2024 End: 01-16-2024 ambulatory DO Shalom Ball Work Phone: [facility] Work Phone: Start: 01-16-2024 End: 01-16-2024 Patient encounter procedure DO Shalom Ball Work Phone: [facility] Gastroenterology Work Phone: Start: 12-26-2023 End: 12-26-2023 ambulatory DO Shalom Ball Work Phone: [facility] Work Phone: Start: 12-26-2023 End: 12-26-2023 Patient encounter procedure DO Shalom Ball Work Phone: [facility] Work Phone: Start: 11-26-2023 Registered Recurring DO Benjam in Ball Work Phone: [facility] [place] [facility] Work Phone: Start: 11-12-2023 End: 11-12-2023 ambulatory DO Shalom Ball Work Phone: [facility] Work Phone: Start: 11-12-2023 End: 11-12-2023 Patient encounter procedure DO Shalom Ball Work Phone: [facility] Work Phone: Start: 11-12-2023 Registered Recurring DO Benjam in Ball Work Phone: [facility] [place] [facility] Work Phone: Start: 11-07-2023 End: 11-07-2023 ambulatory DO Shalom Ball Work Phone: [facility] Work Phone: Start: 11-07-2023 End: 11-07-2023 Patient encounter procedure DO Shalom Ball Work Phone: [facility] Work Phone: Start: 11-06-2023 Orders Only Hailee nobel [employer] Work Phone: [facility] Start: 11-05-2023 End: 11-05-2023 ambulatory DO Shalom Ball Work Phone: [facility] Work Phone: Start: 11-05-2023 End: 11-05-2023 Patient encounter procedure DO Shalom Ball Work Phone: [facility] Work Phone: Start: 11-04-2023 Telephone encounter [facility] Start: 2023 Orders Only Not In System Ref Prov [facility] Start: 10-29-2023 Non-patient / Non-visit DO Shalom Ball Work Phone: [facility] Work Phone: Start: 10-24-2023 Non-patient / Non-visit DO Shalom Ball Work Phone: [facility] Work Phone: Start: 10-23-2023 Orders Only Not In System Ref Prov [facility] Start: 10-22-2023 Non-patient / Non-visit DO Shalom Ball Work Phone: [facility] Work Phone: Start: 10-21-2023 End: 10-21-2023 ambulatory DO Shalom Ball Work Phone: [facility] Work Phone: Start: 10-21-2023 End: 10-21-2023 Departed Referred DO Shalom Ball Work Phone: [facility] Start: 10-21-2023 Non-patient / Non-visit DO Shalom Ball Work Phone: [facility] Work Phone: Start: 10-02-2023 End: 10-02-2023 Patient encounter procedure DO Shalom Ball Work Phone: [facility] Work Phone: Start: 08-27-2023 End: 08-27-2023 ambulatory Shalom Jones Other [employer] Other Start: 08-27-2023 Nursing evaluation o f patient and report Shalom Jones [facility] Start: 08-14-2023 End: 08-14-2023 ambulatory Shalom Jones Other [employer] Other Start: 08-14-2023 Office outpatient visit 25 minutes Shalom Jones [facility] Start: 08-14-2023 End: 08-14-2023 Patient encounter procedure DO Shalom Karen Work Phone: [facility] Work Phone: Start: 08-13-2023 End: 08-13-2023 ambulatory DO Shalom Jones Work Phone: [facility] Work Phone: Start: 08-13-2023 End: 08-13-2023 Registered Recurring DO Shalom Jones Work Phone: [facility] Work Phone: Start: 08-06-2023 End: 08-06-2023 ambulatory Ricky Perdomo Other [employer] Other Start: 08-06-2023 Office outpatient visit 15 minutes Ricky Perdomo [facility] Gastroenterology Start: 08-06-2023 End: 08-06-2023 Patient encounter procedure DO Shalom Karen Work Phone: [facility] Gastroenterology Work Phone: Start: 07-26-2023 End: 07-26-2023 ambulatory Shalom Jones Other [employer] Other Start: 07-26-2023 Nursing evaluation o f patient and report Shalom Jones [facility] Start: 06-13-2023 End: 06-13-2023 ambulatory DO Shalom Ball Work Phone: [facility] Work Phone: Start: 06-13-2023 End: 06-13-2023 Registered Recurring DO Shalom Jones Work Phone: [facility] Work Phone: Start: 05-24-2023 End: 05-24-2023 ambulatory Shalom Jones Other [employer] Other Start: 05-24-2023 Nursing evaluation o f patient and report Shalom Jones [facility] Start: 05-15-2023 Telephone encounter Ricky Mason [facility] Start: 05-15-2023 End: 05-15-2023 Admission to same day surgery center DO Shalom Jones Work Phone: [facility] Work Phone: Start: 05-15-2023 End: 05-15-2023 ambulatory DO Shalom Jones Work Phone: [facility] Work Phone: Start: 05-09-2023 Registered Recurring DO Mirna in Karen Work Phone: [facility] Work Phone: Start: 05-07-2023 End: 05-07-2023 ambulatory Ricky Perdomo Other [employer] Other Start: 05-07-2023 Office outpatient visit 25 minutes Ricky Perdomo [facility] Gastroenterology Start: 04-24-2023 End: 04-24-2023 ambulatory Shalom Jones Other [employer] Other Start: 04-24-2023 Nursing evaluation o f patient and report Shalom Jones [facility] Start: 03-12-2023 End: 03-12-2023 ambulatory DO Shalom Jones Work Phone: [facility] Work Phone: Start: 03-12-2023 End: 03-12-2023 Registered Recurring DO Shalom Joens Work Phone: [facility] Work Phone: Start: 02-21-2023 End: 02-21-2023 ambulatory Shalom Jones Other [employer] Other Start: 02-21-2023 Telephone encounter Sh[facility]om [facility] Start: 02-14-2023 End: 02-14-2023 ambulatory Shalom Jones Other [employer] Other Start: 02-14-2023 Nursing evaluation o f patient and report Shalom [facility] Start: 01-08-2023 End: 01-08-2023 ambulatory DO Shalom Jones Work Phone: [facility] Work Phone: Start: 01-08-2023 End: 01-08-2023 Registered Recurring DO Shalom Jones Work Phone: [facility] Work Phone: Start: 12-11-2022 End: 12-11-2022 ambulatory Shalom Jones Other [employer] Other Start: 12-11-2022 Nursing evaluation o f patient and report Shalom Jones [facility] Start: 11-19-2022 End: 11-19-2022 ambulatory Shalom Jones Other [employer] Other Start: 11-19-2022 Office outpatient visit 15 minutes Shalom Jones [facility] Start: 11-05-2022 End: 11-06-2022 [facility] [employer] Other Start: 11-05-2022 Nursing evaluation o f patient and report Shalom Jones [facility] Start: 11-02-2022 End: 11-02-2022 ambulatory Shalom Jones Other [employer] Other Start: 11-02-2022 Telephone encounter Shalom Karen [facility] Start: 10-24-2022 End: 10-24-2022 ambulatory Shalom Jones Other [employer] Other Start: 10-24-2022 Office outpatient visit 15 minutes Shalom Jones [facility] Start: 10-10-2022 End: 10-10-2022 ambulatory Shalom Jones Other [employer] Other Start: 10-10-2022 Transitional care manage srvc 14 day discharge Shalom Jones [facility] Start: 10-02-2022 End: 10-02-2022 ambulatory Shalom Karen Other [employer] Other Start: 10-02-2022 Nursing evaluation o f patient and report Shalom Jones [facility] Start: 10-01-2022 End: 10-02-[address] PRASANNA CUMMINS . Facility:[facility] Start: 08-20-2022 End: 08-20-2022 ambulatory Shalom Jones Other [employer] Other Start: 08-20-2022 Nursing evaluation o f patient and report Shalom Jones [facility] Start: 08-09-2022 End: 08-09-2022 ambulatory DO Shalom Jones Work Phone: [facility] Work Phone: Start: 08-09-2022 End: 08-09-2022 Registered Recurring DO Shalom Jones Work Phone: [facility] Work Phone: Start: 08-06-2022 End: 08-07-[address] TAINA TOUSSAINT Facility:[facility] Start: 06-04-2022 End: 06-05-[address] SHALOM JONES Facility:[facility] Start: 04-03-2022 End: 04-04-[address] SHALOM JONES Facility:[facility] Start: 02-25-2022 Adult health examination Shalom Jones Other [employer] Other Start: 02-16-2022 End: 02-17-[address] SHALOM JONES Facility:[facility] Start: 02-13-2022 End: 02-14-[address] DOCTOR NAIDU Facility:[facility] Start: 01-03-2022 End: 01-04-[address] TAINA TOUSSAINT Facility:[facility] Start: 11-24-[address] Taina Toussaint Fac ility:[id number] Start: 11-22-2021 End: 11-23-[address] SHALOM JONES Facility:[facility] Procedures Date Procedure Procedure Detail Performing Clinician Start: 03-24-2025 Ultrasonography of left breast Shalom Ball DO Work Phone: Start: 03-24-2025 Mammography of left breast Shalom Ball DO Work Phone: Start: 02-11-2025 Complete blood count with white cell differential, automated Shiela Chan [employer] Work Phone: Start: 02-11-2025 Comprehensive metabolic panel Shiela Velasquez [employer] Work Phone: Start: 02-08-2025 [employer] Francesca Devries [employer] Start: 12-31-2024 Urine culture Shalom Ball DO Work Phone: Start: 10-21-2023 Assay of lactate Not In System Ref Prov Start: 10-21-2023 Blood Culture 1 DO Shalom Ball Work Phone: Start: 10-21-2023 Blood Culture 2 DO Shalom Jones Work Phone: Start: 10-21-2023 Level i surg pathology gross examination only Not In System Ref Prov Start: 05-15-2023 Esophagogastroduodenoscopy DO Shalom B all Work Phone: Start: 03-12-2017 Screening for malignant neoplasm of colon Ricky Perdomo Other Start: 02-02-2015 Screening for osteoporosis Ricky le Other Screening for malign ant neoplasm of breast Shalom Jones Other Plan of Treatment Date Care Activity Detail Author Start: 04-05-2025 Influenza vaccination Influenza Vaccine [facility] Start: 02-11-[address] [facility] Work Phone: Start: 02-11-2025 [facility] Start: 02-11-2025 [facility] Start: 12-31-2024 Urine culture [facility] Start: 12-31-2024 Bacteria identified in Urine by Culture Urine Culture [facility] Start: 09-07-2024 [facility] Start: 08-31-2024 [facility] Start: 08-28-2024 End: 08-28-2024 [facility] Start: 08-26-2024 [facility] Start: 06-09-2024 [facility] Start: 06-02-2024 [facility] Start: 06-02-2024 [facility] Start: 04-05-2024 Influenza vaccination Influenza Vaccine [facility] Start: 12-09-2023 End: 12-09-2023 Patient encounter procedure 12/09/2023 2:30 PM EDT [facility] [address] [place] [address] Hailee Preston, [employer] [address], [place] [id number] [facility] Start: 11-26-2023 [facility] Start: 11-19-2023 [facility] Start: 07-01-2023 [facility] Start: 06-20-2023 End: 06-21-2023 [facility] Start: 05-15-2023 End: 05-15-2023 [facility] Start: 05-09-2023 [facility] Start: 05-02-2023 [facility] Start: 03-28-2023 [facility] Start: 03-20-2023 End: 03-21-2023 [facility] Start: 01-30-2023 [facility] Start: 01-24-2023 [facility] Start: 01-16-2023 [facility] Start: 11-22-2022 [facility] Start: 11-15-2022 [facility] Start: 08-20-2022 [facility] Start: 08-13-2022 [facility] Start: 06-21-2022 [facility] Start: 06-14-2022 [facility] Start: 05-01-2022 [facility] Start: 04-24-2022 [facility] Start: 01-23-2022 [facility] Start: 01-16-2022 [facility] Start: 12-29-2021 [facility] Start: 12-11-2021 [facility] Start: 01-30-2021 [facility] Start: 09-22-2020 [facility] Start: 07-15-2020 [facility] Start: 2014 Fall Risk Screening Fall Risk Screening [facility] [employer] Start: 10-31-1999 Administration of varicella zoster vaccine Zoster (Shingles) Vaccine (1 of 2) [facility] Start: 1968 DTaP,Tdap and Td Vaccines (1 - Tdap) DTaP,Tdap and Td Vaccines (1 - Tdap) [facility] Start: 10-31-1967 Adult BMI Screening Adult BMI Screening [facility] Start: 1961 Depression Screening Depression Screening [facility] [employer] Start: 1961 Tobacco Screening Tobacco Screening [facility] [employer] Start: 1949 Medicare Annual Wellness Visit Medicare Annual Wellness Visit [facility] Basophils [#/volume] in Blood by Automated count [facility] Basophils [#/volume] in Blood by Automated count [facility] Basophils/100 leukoc ytes in Blood by Automated count [facility] Basophils/100 leukoc ytes in Blood by Automated count [facility] Comprehensive metabo lic 1999 panel - Serum or Plasma [facility] Comprehensive metabo lic 1999 panel - Serum or Plasma [facility] Comprehensive metabo lic 1999 panel - Serum or Plasma [facility] Comprehensive metabo lic 1999 panel - Serum or Plasma [facility] Comprehensive metabo lic 1999 panel - Serum or Plasma [facility] Comprehensive metabo lic 1999 panel - Serum or Plasma [facility] Comprehensive metabo lic 1999 panel - Serum or Plasma [facility] Comprehensive metabo lic 1999 panel - Serum or Plasma [facility] Comprehensive metabo lic 1999 panel - Serum or Plasma [facility] Comprehensive metabo lic 1999 panel - Serum or Plasma [facility] Comprehensive metabo lic 1999 panel - Serum or Plasma [facility] Comprehensive metabo lic 1999 panel - Serum or Plasma [facility] Eosinophils [#/volum e] in Blood [facility] Eosinophils/100 leuk ocytes in Blood by Automated count [facility] Eosinophils/100 leuk ocytes in Blood by Automated count [facility] Erythrocyte distribu tion width [Ratio] by Automated count [facility] Erythrocyte distribu tion width [Ratio] by Automated count [facility] Erythrocytes [#/volu me] in Blood [facility] Erythrocytes [#/volu me] in Blood [facility] Ferritin [Mass/volum e] in Serum or Plasma [facility] Ferritin [Mass/volum e] in Serum or Plasma [facility] Ferritin [Mass/volum e] in Serum or Plasma [facility] Ferritin [Mass/volum e] in Serum or Plasma [facility] Ferritin [Mass/volum e] in Serum or Plasma [facility] Ferritin [Mass/volum e] in Serum or Plasma [facility] Ferritin [Mass/volum e] in Serum or Plasma [facility] Ferritin [Mass/volum e] in Serum or Plasma [facility] Ferritin [Mass/volum e] in Serum or Plasma [facility] Ferritin [Mass/volum e] in Serum or Plasma [facility] Hematocrit [Volume Fraction] of Blood [facility] Hematocrit [Volume Fraction] of Blood [facility] Hemoglobin [Mass/vol ume] in Blood [facility] Hemoglobin [Mass/vol ume] in Blood [facility] Leukocytes [#/volume ] corrected for nucleated erythrocytes in Blood by Automated [facility] Leukocytes [#/volume ] corrected for nucleated erythrocytes in Blood by Automated coun [facility] Leukocytes [#/volume ] in Blood [facility] Leukocytes [#/volume ] in Blood [facility] Lymphocytes [#/volum e] in Blood by Automated count [facility] Lymphocytes [#/volum e] in Blood by Automated count [facility] Lymphocytes/100 leuk ocytes in Blood by Automated count [facility] Lymphocytes/100 leuk ocytes in Blood by Automated count [facility] MCH [Entitic mass] b y Automated count [facility] MCH [Entitic mass] b y Automated count [facility] MCHC [Mass/volume] b y Automated count [facility] MCHC [Mass/volume] b y Automated count [facility] MCV [Entitic volume] by Automated count [facility] MCV [Entitic volume] by Automated count [facility] Methylmalonate [Moles/volume] in Serum or Plasma [facility] Monocytes [#/volume] in Blood by Automated count [facility] Monocytes [#/volume] in Blood by Automated count [facility] Monocytes/100 leukoc ytes in Blood by Automated count [facility] Monocytes/100 leukoc ytes in Blood by Automated count [facility] Neutrophils [#/volum e] in Blood by Automated count [facility] Neutrophils [#/volum e] in Blood by Automated count [facility] Neutrophils/100 leuk ocytes in Blood by Automated count [facility] Neutrophils/100 leuk ocytes in Blood by Automated count [facility] Nucleated erythrocyt es [Presence] in Blood by Automated count [facility] Nucleated erythrocyt es [Presence] in Blood by Automated count [facility] Patient Education Gastric Ulcer (DC) Hiatal Hernia (DC) [facility] Work Phone: Patient referral [facility] Work Phone: Platelet mean volume [Entitic volume] in Blood by Automated count [facility] Platelet mean volume [Entitic volume] in Blood by Automated count [facility] Platelets [#/volume] in Blood [facility] Platelets [#/volume] in Blood [facility] Immunizations Immunization Date Immunization Notes Care Provider Rosy mei 04-29-2025 influenza, high dose seasonal, preservative-free Shalom Jones DO Work Phone: [facility] 01-12-2025 COVID-19 (PFIZER) 12Y and older Shalom Jones DO Work Phone: [facility] 01-12-2025 Pneumococcal Conjuga te Vaccine, 21 valent Shalom Jones DO Work Phone: [facility] 04-23-2024 COVID-19 (MODERNA) 12Y and older Shalom Jones DO Work Phone: [facility] 04-14-2024 influenza, high dose seasonal, preservative-free [facility] 06-11-2023 COVID-19 (MODERNA) 12Y and older Shalom Jones DO Work Phone: [facility] 06-11-2023 RSV, bv, preFa and preFb, pf Shalom Jones DO Work Phone: [facility] 05-31-2023 influenza, high dose seasonal, preservative-free Shalom Jones Other [employer] Other 05-31-2023 influenza virus vaccine, unspecified formulation DO Shalom Jones Work Phone: [facility] 12-25-2022 COVID-19 mRNA Bivale nt Booster (Moderna) Shalom Jones DO Work Phone: [facility] 12-25-2022 zoster vaccine recombinant Shalom Jones DO Work Phone: [facility] 08-10-2022 zoster vaccine recombinant Shalom Jones DO Work Phone: [facility] 05-08-2022 COVID-19 mRNA Bivale nt Booster (Moderna) Shalom Jones DO Work Phone: [facility] 04-23-2022 influenza, high dose seasonal, preservative-free Shalom Jones Other [facility] [employer] Other 04-23-2022 Influenza vaccine, quadrivalent, adjuvanted Shalom Jones DO Work Phone: [facility] 04-23-2022 influenza virus vaccine, unspecified formulation DO Shalom Jones Work Phone: [facility] 11-13-2021 COVID-19 mRNA-1273 (Moderna) Shalom Jones DO Work Phone: [facility] 06-06-2021 COVID-19 mRNA-1273 (Moderna) Shalom Jones DO Work Phone: [facility] 04-21-2021 influenza virus vaccine, split virus (incl. purified surface antigen) Shalom Jones Other [facility] Other 04-21-2021 influenza virus vaccine, unspecified formulation DO Shalom Jones Work Phone: [facility] 04-21-2021 Seasonal trivalent influenza vaccine, adjuvanted, preservative free Shalom Jones DO Work Phone: [facility] 10-26-2020 COVID-19 mRNA-1273 (Moderna) DO Shalom Jones Work Phone: [facility] 09-29-2020 COVID-19 mRNA-1273 (Moderna) DO Shalom Jones Work Phone: [facility] 05-10-2020 influenza virus vaccine, split virus (incl. purified surface antigen) Shalom Jones Other [facility] Other 05-10-2020 influenza virus vaccine, unspecified formulation DO Shalom Ball Work Phone: [facility] 05-28-2019 influenza virus vaccine, split virus (incl. purified surface antigen) Shalom Jones Other [facility] Other 05-28-2019 influenza virus vaccine, unspecified formulation DO Shalom Jones Work Phone: [facility] 06-02-2018 influenza virus vaccine, split virus (incl. purified surface antigen) Shalom Jones Other [facility] Other 06-02-2018 influenza virus vaccine, unspecified formulation DO [facility] Work Phone: [facility] 06-02-2018 Seasonal trivalent influenza vaccine, adjuvanted, preservative free Shalom Jones DO Work Phone: [facility] 06-06-2017 influenza virus vaccine, split virus (incl. purified surface antigen) Shalom Jones Other [facility] Other 06-06-2017 influenza virus vaccine, unspecified formulation DO [employer] Work Phone: [facility] 06-06-2017 influenza, high dose seasonal, preservative-free Shalom Jones DO Work Phone: [facility] 06-19-2016 influenza virus vaccine, split virus (incl. purified surface antigen) Shalom Jones Other [facility] [place] Other 06-19-2016 influenza virus vaccine, unspecified formulation DO Shalom Jones Work Phone: [facility] 06-07-2016 pneumococcal conjuga te vaccine, 13 valent Shalom Jones Other [facility] 05-05-2015 influenza virus vaccine, split virus (incl. purified surface antigen) Shalom Jones Other [facility] [place] Other 05-05-2015 influenza virus vaccine, unspecified formulation DO [facility] Work Phone: [facility] 04-27-2015 diphtheria, tetanus toxoids and acellular pertussis vaccine, unspecified formulation Shalom Jones Other [facility] 02-02-2015 pneumococcal polysaccharide vaccine, 23 valent Shalom Jones Other [facility] 07-08-2012 zoster vaccine, live Mirna Jones DO Work Phone: [facility] 04-16-2012 tetanus and diphther ia toxoids, adsorbed, preservative free, for adult use (5 Lf of tetanus toxoid and 2 Lf of diphtheria toxoid) Shalom Jones Other [facility] 04-10-2000 diphtheria, tetanus toxoids and acellular pertussis vaccine, unspecified formulation Shalom Jones Other [facility] Payers Date Payer Category Payer Self-pay [id number] 2022 Private Health Insurance [employer] [place] [id number] 2014 Medicare [id number] 1959 Medicare [id number] 1959 Unknown [id number] 1950 Unknown [id number] 2.16.840.1.833422.3.579.2 .356 1950 Unknown [id number] 2.16.840.1.219481.3.579.2 .593 1949 Unknown [id number] 2.16.840.1.124071.3.579.2 .593 1949 Unknown [id number] 2.16.840.1.872197.3.579.2 .593 1949 Unknown [id number] 2.16.840.1.409021.3.579.2 .593 1949 Unknown [id number] 2.16.840.1.795875.3.579.2 .593 1949 Unknown [id number] 2.16.840.1.484854.3.579.2 .593 1949 Unknown [id number] 2.16.840.1.534381.3.579.2 .593 1949 Unknown [id number] 2.16.840.1.436279.3.579.2 .593 1949 Unknown [id number] 2.16.840.1.695633.3.579.2 .593 1949 Unknown [id number] 2.16.840.1.158145.3.579.2 .593 1949 Unknown [id number] 2.16.840.1.355349.3.579.2 .593 Unknown [id number] 2.16.840.1.022241.3.579.2 .531 Unknown [id number] 2.16.840.1.204772.3.579.2 .531 Unknown [id number] 2.16.840.1.884869.3.579.2 .531 Social History Date Type Detail Facility Start: 08-09-2022 End: 03-12-2023 Tobacco smoking status SDIS Ex-smoker (finding) [facility] Start: 1950 Sex Assigned At Female F [facility] Start: 01-14-2019 Sex Assigned At N [facility] [place] Other Start: 05-15-2023 End: 04-14-2024 Tobacco smoking status [facility] Never smoked tobacco (finding) [facility] Start: 08-26-2024 End: 01-13-2025 Sex Female (finding) [facility] Tobacco smoking status SDIS Tobacco smoking consumption unknown [facility] Start: 01-14-2019 History of Social function [facility] Childcare Unknown [facility] Start: 1950 Sex Assigned At Not on file P [facility] Medical Equipment Procedure Code Equipment Code Equipment Origin al Text Equipment Identifier Dates Capsule endoscopy, for patency of lumen evaluation Video capsule endoscopy system [id number] FDA Start: 01-07-2020 Capsule endoscopy, for patency of lumen evaluation Video capsule endoscopy system ()[id number] FDA Start: 06-22-2021 Goals Date Patient Goal Desired Activity /State Clinical Notes 01-01-2020 to 02-11-2025 Note Date & Type Note Facility 02-11-2025 Evaluation note Diagnosis Onset Date Resolution Chronic Freedom ulcer acute Feb 12:53pm Hiatal hernia acute February 11, 2025 12:53pm Iron deficiency anemia due to chronic blood loss acute February 11, 2025 12:53pm Angiodysplasia of small intestine chronic February 11, 2025 12:53pm Angiodysplasia of small intestine chronic March 24 2:36pm Hiatal hernia chronic March 2:36pm B12 deficiency deleted March 2:36pm Chronic Freedom ulcer deleted Mar 2:36pm Iron deficiency anemia deleted 2024 2:36pm Obesity, morbid, BMI 40.0-49.9 deleted March 24 2:36pm Skin lesion deleted March 24, 2025 2:36pm YARI (generalized anxiety disorder) acute April 29, 2025 11:21am GERD (gastroesophageal reflux disease) acute April 29, 2025 11:21am Iron deficiency anemia due to chronic blood loss acute April 29, 2025 11:21am Obesity acute April 11:21am Pernicious anemia acute 2024 11:21am Primary hypertension acute Apr 11:21am Medicare annual wellness visit, subsequent noneactive April 11:21am Screening mammogram for breast cancer noneactive April 29, 2025 11:21am [facility] Work Phone: 1(121) 755-968006-11-2025 Evaluation note* Diagnosis Onset Date Resolution Status Admit Date YARI (generalized anxiety disorder) acute January 13, 2025 2:17pm Primary hypertension acute January 13, 2025 2:17pm Tachycardia acute January 13 2:17pm UTI (urinary tract infection) noneac tive January 13, 2025 2:17pm Chronic Freedom ulcer acute Feb 12:53pm Hiatal hernia acute February 11, 2025 12:53pm Iron deficiency anemia due t o chronic blood loss acute February 11 12:53pm Angiodysplasia of small intestine chronic February 11, 2025 12:53pm Angiodysplasia of small intestine chronic March 24 2:36pm Hiatal hernia chronic March 2:36pm B12 deficiency deleted March 2:36pm Chronic Freedom ulcer deleted Mar 2:36pm Iron deficiency anemia deleted 2024 2:36pm Obesity, morbid, BMI 40.0-49.9 delet ed March 24, 2025 2:36pm Skin lesion deleted March 24, 2025 2:36pm [facility] Work Phone: 1(104) 498-839404-17-2025 Evaluation note* Diagnosis Onset Date Resolution Status Admit Date Chronic Freedom ulcer acute Nov 2:17pm Hiatal hernia acute November 19, 2024 2:17pm Iron deficiency anemia due t o chronic blood loss acute November 19, 2 025 2:17pm Angiodysplasia of small intestine chronic November 19, 2024 2:17pm Angiodysplasia of small intestine chronic November 19, 2024 2:18pm Hiatal hernia chronic November 19, 2024 2:18pm B12 deficiency deleted November 2:18pm Chronic Freedom ulcer deleted Apr 2024 2:18pm Iron deficiency anemia deleted Ap ril 2024 2:18pm Obesity, morbid, BMI 40.0-49.9 delet ed November 19, 2024 2:18pm Skin lesion deleted November 19 2 025 2:18pm Cough noneactive December 08, 2024 1:33pm Dyspnea noneactive December 08, 2024 1:33pm Acute bronchitis due to othe r specified organisms noneactive December 08 1:33pm [facility] Work Phone: 1(508) 881-315004-17-2025 Evaluation note* Diagnosis Onset Date Resolution Status Admit Date Chronic Freedom ulcer acute Apr 2024 2:17pm Hiatal hernia acute November 19, 2024 2:17pm Iron deficiency anemia due t o chronic blood loss acute November 19, 2 025 2:17pm Angiodysplasia of small intestine chronic November 19, 2024 2:17pm Angiodysplasia of small intestine chronic November 19, 2024 2:18pm Hiatal hernia chronic November 19, 2024 2:18pm B12 deficiency deleted November 2:18pm Chronic Freedom ulcer deleted Apr 2024 2:18pm Iron deficiency anemia deleted Ap [facility] 2024 2:18pm Obesity, morbid, BMI 40.0-49.9 delet ed November 19, 2024 2:18pm Skin lesion deleted November 19, 2 025 2:18pm Cough noneactive December 08, 2024 1:33pm Dyspnea noneactive December 08, 2024 1:33pm Acute bronchitis due to othe r specified organisms noneactive December 08 1:33pm YARI (generalized anxiety disorder) acute January 13, 2025 2:17pm Pernicious anemia acute January 132024 2:17pm Primary hypertension acute January 13, 2025 2:17pm Tachycardia acute January 13 2:17pm UTI (urinary tract infection) noneac tive January 13, 2025 2:17pm [facility] Work Phone: 1(787) 533-835004-17-2025 Evaluation note* Diagnosis Onset Date Resolution Status Admit Date Chronic Freedom ulcer acute Apr 2024 2:17pm Hiatal hernia acute November 19, 2024 2:17pm Iron deficiency anemia due t o chronic blood loss acute November 19, 2 025 2:17pm Angiodysplasia of small intestine chronic November 19, 2024 2:17pm Angiodysplasia of small intestine chronic November 19, 2024 2:18pm Hiatal hernia chronic November 19, 2024 2:18pm B12 deficiency deleted November 2:18pm Chronic Freedom ulcer deleted Nov 2:18pm Iron deficiency anemia deleted Ap [facility] 2024 2:18pm Obesity, morbid, BMI 40.0-49.9 delet ed November 19, 2024 2:18pm Skin lesion deleted November 19, 2 025 2:18pm Cough noneactive December 08, 2024 1:33pm Dyspnea noneactive December 08, 2024 1:33pm Acute bronchitis due to othe r specified organisms noneactive December 08 1:33pm YARI (generalized anxiety disorder) acute January 13, 2025 2:17pm Primary hypertension acute January 13, 2025 2:17pm Tachycardia acute January 13 2:17pm UTI (urinary tract infection) noneac tive January 13, 2025 2:17pm [facility] Work Phone: 1(675) 748-257304-17-2025 Evaluation note* Diagnosis Onset Date Resolution Status Admit Date Chronic Freedom ulcer acute Apr 2024 2:17pm Hiatal hernia acute November 19, 2024 2:17pm Iron deficiency anemia due t o chronic blood loss acute November 19, 2 025 2:17pm Angiodysplasia of small intestine chronic November 19, 2024 2:17pm Cough noneactive December 08, 2024 1:33pm Dyspnea noneactive December 08, 2024 1:33pm Acute bronchitis due to othe r specified organisms noneactive December 08 1:33pm YARI (generalized anxiety disorder) acute January 13, 2025 2:17pm Primary hypertension acute January 13, 2025 2:17pm Tachycardia acute January 13 2:17pm UTI (urinary tract infection) noneac tive January 13, 2025 2:17pm Chronic Freedom ulcer acute Feb 12:53pm Hiatal hernia acute February 11, 2025 12:53pm Iron deficiency anemia due t o chronic blood loss acute February 11 12:53pm Angiodysplasia of small intestine chronic February 11, 2025 12:53pm Angiodysplasia of small intestine chronic February 11, 2025 12:55pm Hiatal hernia chronic February 11, 2025 12:55pm B12 deficiency deleted February 11, 2025 12:55pm Chronic Freedom ulcer deleted Feb 12:55pm Iron deficiency anemia deleted 2024 12:55pm Obesity, morbid, BMI 40.0-49.9 delet ed February 11, 2025 12:55pm Skin lesion deleted February 11 12:55pm [facility] Work Phone: 1(128) 459-485902-05-2025 Evaluation note* Diagnosis Onset Date Resolution Status Admit Date Diarrhea acute September 09, 2024 1:24pm YARI [...] 19, 2024 2:17pm Iron deficiency anemia due t o chronic blood loss acute November 19, 2 025 2:17pm Angiodysplasia of small intestine chronic November 19, 2024 2:17pm Angiodysplasia of small intestine chronic November 19, 2024 2:18pm Hiatal hernia chronic November 19, 2024 2:18pm B12 deficiency deleted November 2:18pm Chronic Freedom ulcer deleted Apr 2024 2:18pm Iron deficiency anemia deleted Ap 2024 2:18pm Obesity, morbid, BMI 40.0-49.9 delet ed November 19, 2024 2:18pm Skin lesion deleted November 19, 2 025 2:18pm [facility] Work Phone: 1(646) 692-747201-22-2025 Evaluation note* Diagnosis Onset Date Resolution Status [...] 072024 12:48pm Chronic Freedom ulcer deleted Sep ru2024 12:48pm Iron deficiency anemia deleted Fe bru2024 12:48pm Obesity, morbid, BMI 40.0-49.9 delet ed [...] 2024 1:24pm Primary hypertension acute 2024 1:24pm [facility] Work Phone: 1(327) 117-713112-05-2024 Evaluation note* Diagnosis Onset Date Resolution Status Admit Date Pernicious anemia acute Decembe r 2023 3:17pm Angiodysplasia of small intestine chronic August 26 10:51am Hiatal hernia chronic August 10:51am Obesity, morbid, BMI 40.0-49.9 chron ic August 26, 2024 10:51am B12 deficiency deleted August 262024 10:51am Chronic Freedom ulcer deleted Aug 10:51am Iron deficiency anemia deleted [facility] 2024 10:51am Skin lesion deleted August 26, 2024 10:51am Chronic Freedom ulcer acute Aug 10:51am Hiatal hernia acute August 10:51am Iron deficiency anemia due t o chronic blood loss acute August 26, 2024 10:51am Angiodysplasia of small intestine chronic August 26 10:51am B12 deficiency deleted August 262024 10:51am [facility] Work Phone: 1(895) 147-894512-05-2024 Evaluation note* Diagnosis Onset Date Resolution Status [...] 09, 2024 1:24pm Pernicious anemia acute uar y 2024 1:24pm Primary hypertension acute 2024 1:24pm [facility] Work Phone: 1(211) 440-680009-27-2024 Miscellaneous Notes* Telephone Encounter - ANI Damon - 05/01/2024 9:15 AM EDT I called Tu and left a message to call the office. It was recommended that she do a repeat EGD. I don't see it was done yet and I left several messages to schedule. I left my phone number & extension on her voicemail. documented in this [facility]Pro[facility] [id number] Telephone encounter Note* Telephone Encounter - Lana ANI Jhaveri - 05/01/2024 9:15 AM EDT I called Tu and left a message to call the office. It was recommended that she do a repeat EGD. I don't see it was done yet and I left several messages to schedule. I left my phone number & extension on her voicemail. [facility]04-01-2024 Miscellaneous Notes* Telephone Encounter - Indy Artis [...] with Dr. Mckeon. [facility] Telephone encounter Note* Telephone Encounter - Indy [...] Can you help? Thanks, Dr. Del Rosario [facility]04-01-2024 Telephone encounter Note* Telephone Encounter - Indy Artis CMA - 11/04/2023 2:11 PM EDT Spoke with patient regarding pathology results. Patient verbally understood with no further questions. A follow up appointment was scheduled on 12/09/23 to schedule a repeat EGD with Dr. Mckeon. [facility]01-23-2024 Evaluation note* Encounter Date Diagnosis Assessment Notes Treatment Notes Treatment Clinical Notes Aug, Pernicious anemia (ICD-10 - D51.0) [facility] Other 01-10-2024 Evaluation note* Encounter Date Diagnosis [...] of medications Aug, Macromastia (ICD-10 - N62) [facility] Other 01-02-2024 Evaluation note* Encounter Date Diagnosis [...] results. Aug, Abdominal pain (ICD-10 - R10.9) [facility] Other 11-09-2023 Progress note Author Taina Toussaint [facility] June 13, 2023 3:08pm Note Date/Time June 13, 2023 1 :12pm [facility] [place] [address] Hem/Onc Follow Up Note - OP Signed Patient: Tu Conde MR#: [id number] : 1950 Acct:[id number] Age/Sex: 72 / F Type: REG RCR Copies to: DO Ricky Jordan MD~ Subjective Date/Time of Service: Date of Service: 06/13/2023 Time of Service: 13:10 Chief Complaint: Patient is here today for a 2 month follow up visit and go overoutside labs for iron deficiency anemia HPI: 06/13/2023: Tu is here for 6 week followup after [...] review gastroenterology evaluation and outside labs. 04/26/2023: Tu is here for followup after most recent Injectafer infusions. She has received Feraheme x 2 in Aug 2022, Injectafer in November/January/March 2023. Followup labs at [facility] show hemoglobin 8.4 with iron saturation 6.3% [...] iron sat 12% and ferritin 109 11/07/2022: Tu presents for follow-up for her iron deficiency anemia. She continues with increased fatigue and dyspnea on exertion. She denies black, tarry stool or other s/s of bleeding. No other new symptoms. She notes she was admitted at [facility] end of September for anemia and received a couple of units of blood while there. No active bleeding found at that time and iron studies WNL during admission. Iron studies currently low, will plan repletion with IV iron and will follow-up with labs in 2 months, sooner if needed. 08/09/2022: Tu is here for interval 2 month follow [...] 1 on 11/30/2021. Most recent laboratories from [facility] dated 08/06/2022 reveal hemoglobin - 10.7; [...] withactivities and her most recent labs at [facility] 06/04/2022 showed hemoglobin 11.7 with serum [...] fatigue. Will continue close follow up. 01/05/2022: Tu presents for follow-up of her iron deficiency [...] that time. On review, her labs from [facility] reveal hgb 9.0 and iron saturation 5%. We will plan for repeat Feraheme x 2 doses and will follow-up in 6 weeks again for repeat labs 11/24/2021: She is here for follow-up today and transfer of followup (previouslyfollowed by Dr. Anam Abarca). She reports improved energy since most recent RBC transfusion and iron infusions at [place] but persistent fatigue. She still has episodes [...] No iron panel was reported. Labs from [place] 11/22/2021 with improved hemoglobin to 9.4 but still low iron saturation 3.9% and ferritin 20. 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 Followup with [facility] in 6 weeks to review iron studies after Feraheme 510mg x 2 doses and Octreotide LAR 20mg IM monthly. 10/24/2021 (YAZAN Chan) her energy is much improved after receiving Feraheme in September at [facility] she has her labs done at [facility] as well, none done this month [...] CMP 01/19/21 09:05 01/01/20 11:27 Outside Labs: [facility] outside labs 04/24/2023: Hemoglobin 8.4 iron saturation 6.3% and ferritin 94. 06/11/2023: Hemoglobin is up to 12.1 with iron saturation 13.9% and ferritin 121. - Impressions No new imaging for review - Other Results Results/Comments: 05/15/2023 Ricky Perdomo MD (EGD)Esophagogastroduodenoscopy Additional procedure: EGD and enteroscopy [...] have her follow-up in 6 weeks with [facility] and will plan for repeatiron studies and [...] admitted for 2-3 days with anemia at [facility] and received transfusional support. Current labs [...] will also refer her back to Dr. Perdomo as she is agreeable to this now. [...] She will be referred back to Dr. Perdomo for re-evaluation as she continues to require [...] for coordination of care (as documented) and [id number] counseling of patient and/or family. Dictated By: Taina Toussaint MD DD/ [id number] Signed By: <Electronically signed by MD Taina Toussaint> 06/13/[address] [facility] Work Phone: 1(220) 531-695610-20-2023 Evaluation note* Encounter Date Diagnosis Assessment Notes Treatment Notes Treatment Clinical Notes May, Pernicious anemia (ICD-10 - D51.0) [facility] Other 10-11-2023 Procedure [facility]10-11-2023 Evaluation note* Encounter Date Diagnosis Assessment Notes Treatment Notes Treatment Clinical Notes May, Hiatal hernia (ICD-10 - K44.9) May, Chronic Freedom ulcer (ICD-10 - K25.7) [facility] Other 10-03-2023 Evaluation note* Encounter Date Diagnosis Assessment Notes Treatment Notes Treatment Clinical Notes May, Iron deficiency anemia (ICD-10 - D50.9) Pt to repeat EGD- push enteroscopy Pt to start clonadine low dose 0.1mg- half a pill bid Retrieve lab results from Dr. Toussaint [facility] Other 09-23-2023 Progress note Author Taina Toussaint [facility] April 27, 2023 7:53pm Note Date/Time April 26, 2023 1:10pm [facility] [place] [address] Hem/Onc Follow Up Note - OP Signed Patient: Tu Conde MR#: [id number] : 1950 Acct:[id number] Age/Sex: 72 / F Type: REG RCR Copies to: DO Ricky Jordan MD~ Subjective Date/Time of Service: Date of Service: 04/26/2023 Time of Service: 13:09 Chief Complaint: Patient is here today for a one month follow up visit for Iron defiiciency anemia and go over labs HPI: 04/26/2023: Tu is here for followup after most recent Injectafer infusions. She has received Feraheme x 2 in Aug 2022, Injectafer in November/January/March 2023. Followup labs at [facility] show hemoglobin 8.4 with iron saturation 6.3% [...] iron sat 12% and ferritin 109 11/07/2022: Tu presents for follow-up for her iron deficiency anemia. She continues with increased fatigue and dyspnea on exertion. She denies black, tarry stool or other s/s of bleeding. No other new symptoms. She notes she was admitted at [facility] end of September for anemia and received a couple of units of blood while there. No active bleeding found at that time and iron studies WNL during admission. Iron studies currently low, will plan repletion with IV iron and will follow-up with labs in 2 months, sooner if needed. 08/09/2022: Tu is here for interval 2 month follow [...] 1 on 11/30/2021. Most recent laboratories from [facility] dated 08/06/2022 reveal hemoglobin - 10.7; [...] withactivities and her most recent labs at [facility] 06/04/2022 showed hemoglobin 11.7 with serum [...] fatigue. Will continue close follow up. 01/05/2022: Tu presents for follow-up of her iron deficiency [...] that time. On review, her labs from [facility] reveal hgb 9.0 and iron saturation 5%. We will plan for repeat Feraheme x 2 doses and will follow-up in 6 weeks again for repeat labs 11/24/2021: She is here for follow-up today and transfer of followup (previouslyfollowed by Dr. Anam Abarca). She reports improved energy since most recent RBC transfusion and iron infusions at [facility] but persistent fatigue. She still has episodes [...] No iron panel was reported. Labs from [facility] 11/22/2021 with improved hemoglobin to 9.4 but still low iron saturation 3.9% and ferritin 20. 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 Followup with [facility] in 6 weeks to review iron studies after Feraheme 510mg x 2 doses and Octreotide LAR 20mg IM monthly. 10/24/2021 (YAZAN Chan) her energy is much improved after receiving Feraheme in September at [facility] she has her labs done at [facility] as well, none done this month [...] Depressed Mood [-], Anxiety [-], Stressed [-] [facility] - History Attestation statement: The following information [...] 09:05 01/01/20 11:27 Outside Labs: Labs at [facility]: 04/24/2023: WBC 5800, Hg 8.4, Hct 30.2, [...] have her follow-up in 6 weeks with [facility] and will plan for repeatiron studies and [...] admitted for 2-3 days with anemia at [facility] and received transfusional support. Current labs [...] will also refer her back to Dr. Perdomo as she is agreeable to this now. [...] She will be referred back to Dr. Perdomo for re-evaluation as she continues to require [...] for coordination of care (as documented) and [id number] counseling of patient and/or family. Dictated By: Taina Toussaint MD DD/ [id number] Signed By: <Electronically signed by MD Taina Toussaint> 04/27/231952 [facility] Work Phone: 1(422) 449-821709-20-2023 Evaluation note* Encounter Date Diagnosis Assessment Notes Treatment Notes Treatment Clinical Notes Apr, Pernicious anemia (ICD-10 - D51.0) [facility] Other 08-08-2023 Progress note Author Shiela Chan [facility] March 12, 2023 3:30pm Note Date/Time March 12, 2023 1:3 3pm [facility] [place] [address] Hem/Onc Follow Up Note - OP Signed Patient: Tu Conde MR#: [id number] : 1950 Acct:[id number] Age/Sex: 72 / F Type: REG RCR [...] of the small bowel 04/28/2021 follow-up in [place]: o FeraHeme 510 mg IV o Repeat Iron Studies, CBC, Ferritin in 1 month o Follow-up in [address] Rivera at [facility] September 2021 follow-up labs at [facility] with again low iron saturation at 3.5%, ferritin 15 and hemoglobin 6.6. She received 2 doses of Feraheme as well as 2 unitsPRBCs at [facility] 10/24/2021: She feels much better after [...] have her follow-up in 6 weeks with [facility] and will plan for repeat iron studies [...] any issues prior to scheduled appointment. 06/06/2022: Tu now has recurrent fatigue and dyspnea with [...] follow-up with myself and nurse practitioner. 08/09/2022: Tu is here for interval 2 month follow [...] 1 on 11/30/2021. Most recent laboratories from [facility] dated 08/06/2022 reveal hemoglobin - 10.7; [...] admitted for 2-3 days with anemia at [facility] and received transfusional support. Current labs [...] will also refer her back to Dr. Perdomo as she is agreeable to this now. [...] She will be referred back to Dr. Perdomo for re-evaluation as she continues to require [...] follow-up in 1mo refer back to Dr. Perdomo - History of Present Illness Chief Complaint: Patient is here today for a 2 month follow up visit for iron deficiency anemia and go over labs HPI: 11/07/2022: Tu presents for follow-up for her iron deficiency anemia. She continues with increased fatigue and dyspnea on exertion. She denies black, tarry stool or other s/s of bleeding. No other new symptoms. She notes she was admitted at [facility] end of September for anemia and received a couple of units of blood while there. No active bleeding found at that time and iron studies WNL during admission. Iron studies currently low, will plan repletion with IV iron and will follow-up with labs in 2 months, sooner if needed. 08/09/2022: Tu is here for interval 2 month follow [...] 1 on 11/30/2021. Most recent laboratories from [facility] dated 08/06/2022 reveal hemoglobin - 10.7; [...] withactivities and her most recent labs at [facility] 06/04/2022 showed hemoglobin 11.7 with serum [...] fatigue. Will continue close follow up. 01/05/2022: Tu presents for follow-up of her iron deficiency [...] that time. On review, her labs from [facility] reveal hgb 9.0 and iron saturation 5%. We will plan for repeat Feraheme x 2 doses and will follow-up in 6 weeks again for repeat labs 11/24/2021: She is here for follow-up today and transfer of followup (previouslyfollowed by Dr. Anam Abarca). She reports improved energy since most recent RBC transfusion and iron infusions at [facility] but persistent fatigue. She still has episodes [...] No iron panel was reported. Labs from [facility] 11/22/2021 with improved hemoglobin to 9.4 but still low iron saturation 3.9% and ferritin 20. 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 Followup with [facility] in 6 weeks to review iron studies [...] improved after receiving Feraheme in September at [facility] she has her labs done at [facility] as well, none done this month [...] without complaints beyond the continued melena 11/07/2022: Tu presents for follow-up for her iron deficiency anemia. She continues with increased fatigue and dyspnea on exertion. She denies black, tarry stool or other s/s of bleeding. No other new symptoms. She notes she was admitted at [facility] end of September for anemia and [...] for coordination of care (as documented) and [id number] counseling of patient and/or family. [facility] - Medical History Medical History: Medical History [...] By: <Electronically signed by SONIA Chan> 03/12/23 0854 [facility] Work Phone: 1([phone]) 484-947407-13-2023 Evaluation note* Encounter Date Diagnosis Assessment Notes Treatment Notes Treatment Clinical Notes Feb, Pernicious anemia (ICD-10 - D51.0) [facility] Other 06-06-2023 Progress note Author Shiela Chan [facility] January 08, 2023 2:18pm Note Date/Time January 08, 2023 2:14p m [facility] [place] [address] Hem/Onc Follow Up Note - OP Signed Patient: uT Conde MR#: [id number] : 1950 Acct:[id number] Age/Sex: 72 / F Type: REG RCR [...] of the small bowel 04/28/2021 follow-up in [facility]: o FeraHeme 510 mg IV o Repeat Iron Studies, CBC, Ferritin in 1 month o Follow-up in [address] Rivera at [facility] September 2021 follow-up labs at [facility] with again low iron saturation at 3.5%, ferritin 15 and hemoglobin 6.6. She received 2 doses of Feraheme as well as 2 units PRBCs at [facility] 10/24/2021: She feels much better after [...] have her follow-up in 6 weeks with [facility] and will plan for repeat iron studies [...] any issues prior to scheduled appointment. 06/06/2022: Tu now has recurrent fatigue and dyspnea with [...] follow-up with myself and nurse practitioner. 08/09/2022: Tu is here for interval 2 month follow [...] 1 on 11/30/2021. Most recent laboratories from [facility] dated 08/06/2022 reveal hemoglobin - 10.7; [...] admitted for 2-3 days with anemia at [facility] and received transfusional support. Current labs [...] anemia and go ovr labs HPI: 11/07/2022: Tu presents for follow-up for her iron deficiency anemia. She continues with increased fatigue and dyspnea on exertion. She denies black, tarry stool or other s/s of bleeding. No other new symptoms. She notes she was admitted at [facility] end of September for anemia and received a couple of units of blood while there. No active bleeding found at that time and iron studies WNL during admission. Iron studies currently low, will plan repletion with IV iron and will follow-up with labs in 2 months, sooner if needed. 08/09/2022: Tu is here for interval 2 month follow [...] 1 on 11/30/2021. Most recent laboratories from [facility] dated 08/06/2022 reveal hemoglobin - 10.7; [...] withactivities and her most recent labs at [facility] 06/04/2022 showed hemoglobin 11.7 with serum [...] fatigue. Will continue close follow up. 01/05/2022: Tu presents for follow-up of her iron deficiency [...] that time. On review, her labs from [facility] reveal hgb 9.0 and iron saturation 5%. We will plan for repeat Feraheme x 2 doses and will follow-up in 6 weeks again for repeat labs 11/24/2021: She is here for follow-up today and transfer of followup (previouslyfollowed by Dr. Anam Abarca). She reports improved energy since most recent RBC transfusion and iron infusions at [facility] but persistent fatigue. She still has episodes [...] No iron panel was reported. Labs from [facility] 11/22/2021 with improved hemoglobin to 9.4 but still low iron saturation 3.9% and ferritin 20. 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 Followup with [facility] in 6 weeks to review iron studies [...] improved after receiving Feraheme in September at [facility] she has her labs done at [facility] as well, none done this month [...] without complaints beyond the continued melena 11/07/2022: Tu presents for follow-up for her iron deficiency anemia. She continues with increased fatigue and dyspnea on exertion. She denies black, tarry stool or other s/s of bleeding. No other new symptoms. She notes she was admitted at [facility] end of September for anemia and [...] for coordination of care (as documented) and gysm-[id number] counseling of patient and/or family. [facility] - Medical History Medical History: Medical History [...] <Electronically signed by SONIA Chan> 01/08/23 14[address] [facility] Work Phone: [phone]) 985-352605-09-2023 Evaluation note* Encounter Date Diagnosis Assessment Notes Treatment Notes Treatment Clinical Notes December, Pernicious anemia (ICD-10 - D51.0) [facility] Other 04-17-2023 Evaluation note* Encounter Date Diagnosis [...] anxiety disorder (ICD-10 - F10.280) Continue abstinence [facility] Other 04-12-2023 Progress note Author Shiela Chan [facility] November 14, 2022 2:04pm Note Date/Time November 07, 2022 11:4 5am [facility] at [address] [address] Hem/Onc Follow Up Note - OP Signed Patient: Tu Conde MR#: [id number] : 1950 Acct:[id number] Age/Sex: 72 / F Type: REG RCR Copies to: DO Ricky Jordan MD~ Subjective Date/Time of Service: Date of Service: 11/07/2022 Time of Service: 11:44 Chief Complaint: Patient is here for a 3 month follow up with outside labs for review. No concerns voiced at this time. HPI: 11/07/2022: Tu presents for follow-up for her iron deficiency anemia. She continues with increased fatigue and dyspnea on exertion. She denies black, tarry stool or other s/s of bleeding. No other new symptoms. She notes she was admitted at [facility] end of September for anemia and received a couple of units of blood while there. No active bleeding found at that time and iron studies WNL during admission. Iron studies currently low, will plan repletion with IV iron and will follow-up with labs in 2 months, sooner if needed. 08/09/2022: Tu is here for interval 2 month follow [...] 1 on 11/30/2021. Most recent laboratories from [facility] dated 08/06/2022 reveal hemoglobin - 10.7; [...] withactivities and her most recent labs at [facility] 06/04/2022 showed hemoglobin 11.7 with serum [...] fatigue. Will continue close follow up. 01/05/2022: Tu presents for follow-up of her iron deficiency [...] that time. On review, her labs from [facility] reveal hgb 9.0 and iron saturation 5%. We will plan for repeat Feraheme x 2 doses and will follow-up in 6 weeks again for repeat labs 11/24/2021: She is here for follow-up today and transfer of followup (previouslyfollowed by Dr. Anam Abarca). She reports improved energy since most recent RBC transfusion and iron infusions at [facility] but persistent fatigue. She still has episodes [...] No iron panel was reported. Labs from [facility] 11/22/2021 with improved hemoglobin to 9.4 but still low iron saturation 3.9% and ferritin 20. 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 Followup with [facility] in 6 weeks to review iron studies [...] improved after receiving Feraheme in September at [facility] she has her labs done at [facility] as well, none done this month [...] of the small bowel 04/28/2021 follow-up in [facility]: o FeraHeme 510 mg IV o Repeat Iron Studies, CBC, Ferritin in 1 month o Follow-up in [address] Rivera at [facility] September 2021 follow-up labs at [facility] with again low iron saturation at 3.5%, ferritin 15 and hemoglobin 6.6. She received 2 doses of Feraheme as well as 2 units PRBCs at [facility] 10/24/2021: She feels much better after [...] have her follow-up in 6 weeks with [facility] and will plan for repeat iron studies [...] any issues prior to scheduled appointment. 06/06/2022: Tu now has recurrent fatigue and dyspnea with [...] follow-up with myself and nurse practitioner. 08/09/2022: Tu is here for interval 2 month follow [...] 1 on 11/30/2021. Most recent laboratories from [facility] dated 08/06/2022 reveal hemoglobin - 10.7; [...] admitted for 2-3 days with anemia at [facility] and received transfusional support. Current labs [...] for coordination of care (as documented) and [id number] counseling of patient and/or family. Dictated By: Shiela Chan APRN DD/ 1144 Signed By: <Electronically signed by SONIA Chan> 11/14/22 1404 [facility] Work Phone: 1(442) 991-574104-03-2023 Evaluation note* Encounter Date Diagnosis Assessment Notes Treatment Notes Treatment Clinical Notes Nov, Pernicious anemia (ICD-10 - D51.0) [facility] Other 03-22-2023 Evaluation note* Encounter Date Diagnosis [...] d exercise and weight loss A1C yearly [facility] Other 03-08-2023 Evaluation note* Encounter Date Diagnosis [...] risk of cirrhosis, gastritis, bleeding tendancies etc [facility] Other 02-28-2023 Evaluation note* Encounter Date Diagnosis Assessment Notes Treatment Notes Treatment Clinical Notes Sep, Pernicious anemia (ICD-10 - D51.0) [facility] Other 01-05-2023 Progress note Author Melissa Louis [facility] August 09, 2022 2:19pm Note Date/Time August 09, 2022 2: 03pm [facility] [place] [address] Hem/Onc Follow Up Note - OP Signed Patient: Tu Conde MR#: [id number] : 1950 Acct:[id number] Age/Sex: 71 / F Type: REG RCR Copies to: DO Ricky Jordan MD~ Subjective Date/Time of Service: Date of Service: 08/09/2022 Time of Service: 13:50 Chief Complaint: Patient is here for a 2 month follow up with outside labs for review. No concerns voiced at this time. HPI: 08/09/2022: Tu is here for interval 2 month follow [...] 1 on 11/30/2021. Most recent laboratories from [facility] dated 08/06/2022 reveal hemoglobin - 10.7; [...] withactivities and her most recent labs at [facility] 06/04/2022 showed hemoglobin 11.7 with serum [...] fatigue. Will continue close follow up. 01/05/2022: Tu presents for follow-up of her iron deficiency [...] that time. On review, her labs from [facility] reveal hgb 9.0 and iron saturation 5%. We will plan for repeat Feraheme x 2 doses and will follow-up in 6 weeks again for repeat labs 11/24/2021: She is here for follow-up today and transfer of followup (previouslyfollowed by Dr. Anam Abarca). She reports improved energy since most recent RBC transfusion and iron infusions at [facility] but persistent fatigue. She still has episodes [...] No iron panel was reported. Labs from [facility] 11/22/2021 with improved hemoglobin to 9.4 but still low iron saturation 3.9% and ferritin 20. 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 Followup with [facility] in 6 weeks to review iron studies [...] improved after receiving Feraheme in September at [facility] she has her labs done at [facility] as well, none done this month [...] Depressed Mood [-], Anxiety [-], Stressed [-] [facility] - Medical History Medical History: Medical History [...] of the small bowel 04/28/2021 follow-up in [place]: o FeraHeme 510 mg IV o Repeat Iron Studies, CBC, Ferritin in 1 month o Follow-up in [address] Rivera at [facility] September 2021 follow-up labs at [facility] with again low iron saturation at 3.5%, ferritin 15 and hemoglobin 6.6. She received 2 doses of Feraheme as well as 2 units PRBCs at [facility] 10/24/2021: She feels much better after [...] have her follow-up in 6 weeks with [facility] and will plan for repeat iron studies [...] any issues prior to scheduled appointment. 06/06/2022: uT now has recurrent fatigue and dyspnea with [...] follow-up with myself and nurse practitioner. 08/09/2022: Tu is here for interval 2 month follow [...] 1 on 11/30/2021. Most recent laboratories from [facility] dated 08/06/2022 reveal hemoglobin - 10.7; [...] for coordination of care (as documented) and [id number]-[id number] counseling of patient and/or family. Dictated By: Melissa Louis APRN DD/ 1350 Signed By: <Electronically signed by SONIA Louis> 08/09/22 1414 [facility] Work Phone: 1(710) 787-244311-02-2022 Progress note Author Taina Toussaint [facility] June 06, 2022 10:30am Note Date/Time June 06, 2022 1 0:03am [facility] at [address] [address] Hem/Onc Follow Up Note - OP Signed Patient: Tu Conde MR#: [id number] : 1950 Acct:[id number] Age/Sex: 71 / F Type: REG RCR [...] activities and her most recent labs at [facility] 06/04/2022 showed hemoglobin 11.7 with serum [...] fatigue. Will continue close follow up. 01/05/2022: Tu presents for follow-up of her iron deficiency [...] that time. On review, her labs from [facility] reveal hgb 9.0 and iron saturation 5%. We will plan for repeat Feraheme x 2 doses and will follow-up in 6 weeks again for repeat labs 11/24/2021: She is here for follow-up today and transfer of followup (previouslyfollowed by Dr. Anam Abarca). She reports improved energy since most recent RBC transfusion and iron infusions at [facility] but persistent fatigue. She still has episodes [...] No iron panel was reported. Labs from [facility] 11/22/2021 with improved hemoglobin to 9.4 but still low iron saturation 3.9% and ferritin 20. 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 Followup with [facility] in 6 weeks to review iron studies [...] improved after receiving Feraheme in September at [facility] she has her labs done at [facility] as well, none done this month [...] 01/01/20 11:27 Outside Labs: 06/04/2022 labs at [facility]: White blood cells 5800, hemoglobin 11.7, [...] of the small bowel 04/28/2021 follow-up in [place]: o FeraHeme 510 mg IV o Repeat Iron Studies, CBC, Ferritin in 1 month o Follow-up in [address] Rivera at [facility] September 2021 follow-up labs at [facility] with again low iron saturation at 3.5%, ferritin 15 and hemoglobin 6.6. She received 2 doses of Feraheme as well as 2 units PRBCs at [facility] 10/24/2021: She feels much better after [...] have her follow-up in 6 weeks with [facility] and will plan for repeat iron studies [...] any issues prior to scheduled appointment. 06/06/2022: Tu now has recurrent fatigue and dyspnea with [...] for coordination of care (as documented) and [id number] counseling of patient and/or family. Dictated By: Taina Toussaint MD DD/ 1002 Signed By: <Electronically signed by MD Taina Toussaint> 06/06/22 1030 [facility] Work Phone: [phone]) 121-500007-14-2022 Progress note Author [facility] February 15, 2022 2:17pm Note Date/Time February 15, 2022 2:10 pm [facility] [place] [address] Hem/Onc Follow Up Note - OP Signed Patient: Tu Conde MR#: [id number] : 1950 Acct:[id number] Age/Sex: 71 / F Type: REG RCR Copies to: Shalom Jones,DO Ricky Perdomo MD~ Subjective Date/Time of Service: Date of [...] fatigue. Will continue close follow up. 01/05/2022: Tu presents for follow-up of her iron deficiency [...] that time. On review, her labs from [facility] reveal hgb 9.0 and iron saturation 5%. We will plan for repeat Feraheme x 2 doses and will follow-up in 6 weeks again for repeat labs 11/24/2021: She is here for follow-up today and transfer of followup (previouslyfollowed by Dr. Anam Abarca). She reports improved energy since most recent RBC transfusion and iron infusions at [facility] but persistent fatigue. She still has episodes [...] No iron panel was reported. Labs from [facility] 11/22/2021 with improved hemoglobin to 9.4 but still low iron saturation 3.9% and ferritin 20. 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 Followup with [facility] in 6 weeks to review iron studies [...] improved after receiving Feraheme in September at [facility] she has her labs done at [facility] as well, none done this month [...] Depressed Mood [-], Anxiety [-], Stressed [-] [facility] - Medical History Medical History: Medical History [...] of the small bowel 04/28/2021 follow-up in [place]: o FeraHeme 510 mg IV o Repeat Iron Studies, CBC, Ferritin in 1 month o Follow-up in [address] Rivera at [facility] September 2021 follow-up labs at [facility] with again low iron saturation at 3.5%, ferritin 15 and hemoglobin 6.6. She received 2 doses of Feraheme as well as 2 units PRBCs at [facility] 10/24/2021: She feels much better after [...] have her follow-up in 6 weeks with [facility] and will plan for repeat iron studies [...] for coordination of care (as documented) and [id number] counseling of patient and/or family. Dictated By: Melissa Louis APRN DD/ 1409 Signed By: <Electronically signed by SONIA Louis> 02/15/[address] [facility] Work Phone: 1(889) 320-147706-03-2022 Progress note Author Shiela Chan [facility] January 05, 2022 12:28pm Note Date/Time January 05, 2022 11:52 am [facility] [place] [address] Hem/Onc Follow Up Note - OP Signed Patient: Tu Conde MR#: [id number] : 1950 Acct:[id number] Age/Sex: 71 / F Type: REG RCR Copies to: MD Shalom Leslie DO Lawrence R Mccormack, MD~ Subjective Date/Time of Service: Date of Service: 01/05/2022 Time of Service: 11:51 Chief Complaint: FOllow up visit with labs. HPI: 01/05/2022: Tu presents for follow-up of her iron deficiency [...] that time. On review, her labs from [facility] reveal hgb 9.0 and iron saturation 5%. We will plan for repeat Feraheme x 2 doses and will follow-up in 6 weeks again for repeat labs 11/24/2021: She is here for follow-up today and transfer of followup (previouslyfollowed by Dr. Anam Abarca). She reports improved energy since most recent RBC transfusion and iron infusions at [facility] but persistent fatigue. She still has episodes [...] No iron panel was reported. Labs from [place] 11/22/2021 with improved hemoglobin to 9.4 but still low iron saturation 3.9% and ferritin 20. 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 Followup with [facility] in 6 weeks to review iron studies after Feraheme 510mg x 2 doses and Octreotide LAR 20mg IM monthly. 04/28/21 (Dr. Anam Abarca) feels ok today, energy stable denies any bleeding, denies ice cravings continues to take PPI daily, hemorrhoids under control denies any lightheadedness iron continues to be low, so will recommend updated scopes 10/24/2021 ([facility]) her energy is much improved after receiving Feraheme in September at [facility] she has her labs done at [facility] as well, none done this month [...] of the small bowel 04/28/2021 follow-up in [place]: o FeraHeme 510 mg IV o Repeat Iron Studies, CBC, Ferritin in 1 month o Follow-up in [address] Rivera at [facility] September 2021 follow-up labs at [facility] with again low iron saturation at 3.5%, ferritin 15 and hemoglobin 6.6. She received 2 doses of Feraheme as well as 2 units PRBCs at [facility] 10/24/2021: She feels much better after [...] have her follow-up in 6 weeks with [facility] and will plan for repeat iron studies [...] for coordination of care (as documented) and [id number] counseling of patient and/or family. Dictated By: Shiela Cahn APRN DD/ 1151 Signed By: <Electronically signed by SONIA Chan> 01/05/[address] [facility] Work Phone: 1(487) 708-909704-23-2022 Progress note Author Taina Toussaint [facility] November 25, 2021 2:17pm Note Date/Time November 24, 2021 11: 39am [facility] at [address] [place] [address] Hem/Onc Follow Up Note - OP Signed Patient: Tu Conde MR#: [id number] : 1950 Acct:[id number] Age/Sex: 71 / F Type: REG RCR [...] recent RBC transfusion and iron infusions at [facility] but persistent fatigue. She still has episodes [...] No iron panel was reported. Labs from [facility] 11/22/2021 with improved hemoglobin to 9.4 but still low iron saturation 3.9% and ferritin 20. 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 Followup with [facility] in 6 weeks to review iron studies after Feraheme 510mg x 2 doses and Octreotide LAR 20mg IM monthly. 04/28/21 (Dr. Anam Abarca) feels ok today, energy stable denies any bleeding, denies ice cravings continues to take PPI daily, hemorrhoids under control denies any lightheadedness iron continues to be low, so will recommend updated scopes 10/24/2021 ([facility]) her energy is much improved after receiving Feraheme in September at [facility] she has her labs done at [facility] as well, none done this month [...] [-], Anxiety [-], Stressed [-] [facility] - History Attestation statement: The following information [...] CMP 01/19/21 09:05 01/01/20 11:27 Outside Labs: [facility] labs: 11/22/2021: WBC 4800, Hg 9.4, Hct [...] of the small bowel 04/28/2021 follow-up in [place]: o FeraHeme 510 mg IV o Repeat Iron Studies, CBC, Ferritin in 1 month o Follow-up in [address] Rivera at [facility] September 2021 follow-up labs at [facility] with again low iron saturation at 3.5%, ferritin 15 and hemoglobin 6.6. She received 2 doses of Feraheme as well as 2 units PRBCs at [facility] 10/24/2021: She feels much better after [...] have her follow-up in 6 weeks with [facility] and will plan for repeat iron studies [...] for coordination of care (as documented) and qaqo-nh-rrrd counseling of patient and/or family. Dictated By: Taina Toussaint MD DD/ 1138 Signed By: <Electronically signed by MD Taina Toussaint> 11/25/21 4023 [facility] Work Phone: 1([phone] 103-529603-22-2022 Progress note Author Shiela Chan [facility] October 24, 2021 2:26pm Note Date/Time October 24, 2021 2:0 8pm [facility] at [address] [address] Hem/Onc Follow Up Note - OP Signed Patient: Tu Conde MR#: [id number] : 1950 Acct:[id number] Age/Sex: 70 / F Type: REG RCR [...] improved after receiving feraheme in September at [facility] she has her labs done at [facility] as well, none done this month [...] of the small bowel 04/28/2021 follow-up in [place]: o FeraHeme 510 mg IV o Repeat Iron Studies, CBC, Ferritin in 1 month o Follow-up in [address] rivera at [facility] September 2021 follow-up labs at [facility] with again low iron saturation at 3.5%, ferritin 15 and hemoglobin 6.6. She received 2 doses of Feraheme as well as 2 units PRBCs at [facility] 10/24/2021: She feels much better after [...] for coordination of care (as documented) and ugkf-hf-sozh counseling of patient and/or family. Dictated By: Shiela Chan APRN DD/ 1406 Signed By: <Electronically signed by SONIA Chan> 10/24/[address] [facility] Work Phone: 1([phone]) 844-719010-02-2021 Progress note Author Francesco Solano [facility] May 05, 2021 11:24pm Note Date/Time April 28, 2021 12:03pm [facility] [place] [id number] Hem/Onc Follow Up Note - OP Signed Patient: Tu Conde MR#: [id number] : 1950 Acct:[id number] Age/Sex: 70 / F Type: REG RCR [...] she consider repeat EGD/COLONOSCOPY. to follow-up in [place]: o FeraHeme 510 mg IV o Repeat Iron Studies, CBC, Ferritin in 1 month o Follow-up in [address] rivera at [facility] (2) B12 deficiency Plan: She is getting B12 injection monthly with PCP. (3) Hiatal hernia (4) Obesity, morbid, BMI 40.0-49.9 Follow Up Instructions: cbc, iron studies, ferritin in [place] 1mo iv iron in [place] follow up in [place] in 1 month IVamshi DO have seen [...] for coordination of care (as documented) and mgmo-nk-jpob counseling of patient and/or family. [facility] - Medical History Medical History: Medical History [...] signed by Francesco Solano II, DO> 05/05/[address] [place] [address] Work Phone: [phone] 401-529306-17-2021 Progress note Author Nghia Lizarraga [facility] January 19, 2021 10:59am Note Date/Time January 19, 2021 10:4 6am [facility] [place] [address] Hem/Onc Follow Up Note - OP Signed Patient: Tu Conde MR#: [id number] : 1950 Acct:[id number] Age/Sex: 70 / F Type: REG RCR [...] Depressed Mood [-], Anxiety [-], Stressed [-] [facility] - Medical History Medical History: Medical History [...] % (Auto) 24.0 % (.) 01/19/21 09:05 [place] % (Auto) 9.1 % (.) 01/19/21 09:05 Eos % (Auto) 2.2 % (.) 01/19/21 09:05 Baso % (Auto) 2.1 % (.) 01/19/21 09:05 Neut # (Auto) 2.5 x10E3/uL (1.8-7.7) 01/19/21 09:05 Lymph # (Auto) 1.0 x10E3/uL (1.00-4.8) 01/19/21 09:05 [place] # (Auto) 0.4 x10E3/uL (0.0-0.8) 01/19/21 09:05 [...] Ovalocytes Slight 01/19/21 09:05 PHA Creatinine Clear [id number] 01/01/20 11:27 Sodium 137 mmol/L (136-146) 01/01/20 [...] pH 6.5 (5.0-9.0) 01/11/20 15:16 Ur Specific [place] 1.009 (1.001-1.030) 01/11/20 15:16 Urine Protein Negative [...] for coordination of care (as documented) and cskm-ge-qwsq counseling of patient and/or family. Dictated By: Nghia Lizarraga MD DD/ 1045 Signed By: <Electronically signed by Nghia Lizarraga MD> 01/19/[address] [facility] Work Phone: [phone] 166-965104-20-2021 Progress note Author Anam Abarca [facility] November 22, 2020 2:25pm Note Date/Time November 22, 2020 2:2 4pm [facility] [place] [id number] Hem/Onc Follow Up Note - OP Signed Patient: Tu Conde MR#: [id number] : 1950 Acct:[id number] Age/Sex: 70 / F Type: REG RCR [...] MUSCULOSKELETAL: No back pain, or joint pain. [facility] - Medical History Medical History: Medical History [...] for coordination of care (as documented) and uemm-wn-ezeu counseling of patient and/or family. Dictated By: Anam Abarca MD DD/ 22 Signed By: <Electronically signed by Anam Abarca MD> 11/22/[address] [facility] Work Phone: 1([phone]) 816-493802-04-2021 Progress note Author Anam Abarca [facility] September 08, 2020 1:41pm Note Date/Time September 08, 2020 1 :41pm [facility] at [address] [address] Hem/Onc Follow Up Note - OP Signed Patient: Tu Conde MR#: [id number] : 1950 Acct:[id number] Age/Sex: 69 / F Type: REG RCR [...] MUSCULOSKELETAL: No back pain, or joint pain. [facility] - Medical History Medical History: Medical History [...] for coordination of care (as documented) and mpqw-mo-dkmf counseling of patient and/or family. Dictated By: Anam Abarca MD DD/ 1339 Signed By: <Electronically signed by Anam Abarca MD> 09/08/[address] [facility] Work Phone: [phone] Progress note Author Anam Abarca [facility] July 08, 2020 12:39pm Note Date/Time July 08, 2020 1 1:53am [facility] at [address] [address] Hem/Onc Follow Up Note - OP Signed with Addenda Patient: Tu Conde MR#: [id number] : 1950 Acct:[id number] Age/Sex: 69 / F Type: REG RCR [...] MUSCULOSKELETAL: No back pain, or joint pain. [facility] - Medical History Medical History: Medical History [...] was for coordination of care(as documented) and kzlw-xq-uawi counseling of patient and/or family. Dictated By: Anam Abarca MD DD/ 1152 Signed By: <Electronically signed by Anam Abarca MD> 07/08/[address] [facility] Work Phone: [phone]) [phone] Progress note Author Anam Abarca [facility] June 10, 2020 1:38pm Note Date/Time June 10, 2020 1 :29pm [facility] [place] [address] Hem/Onc Follow Up Note - OP Signed Patient: Tu Conde MR#: [id number] : 1950 Acct:[id number] Age/Sex: 69 / F Type: REG RCR Copies to: DO Ricky Jordan MD~ Subjective Date/Time of Service: Date of Service: 06/10/2020 Time of Service: 13:25 Chief Complaint: Follow up after inpt stay HPI: Mrs. Conde returns for an earlier follow-up. She feels well. She presented to [facility] on 06/07/2020 for profound fatigue, found to have severe anemia with hemoglobin of 6.7, she received 1 units of [address]BC transfusion. Dr. Jones currently called me, will get her in [...] MUSCULOSKELETAL: No back pain, or joint pain. [facility] - Medical History Medical History: Medical History [...] was for coordination of care(as documented) and qlkh-da-gcte counseling of patient and/or family. Dictated By: nAam Abarca MD DD/ 1325 Signed By: <Electronically signed by Anam Abarca MD> 06/10/[address] [facility] Work Phone: [phone] Progress note Author Anam Abarca [facility] April 07, 2020 1:21pm Note Date/Time April 07, 2020 1:17pm [facility] [place] [address] Hem/Onc Follow Up Note - OP Signed Patient: Tu Conde MR#: [id number] : 1950 Acct:[id number] Age/Sex: 69 / F Type: REG RCR [...] MUSCULOSKELETAL: No back pain, or joint pain. [facility] - Medical History Medical History: Medical History [...] was for coordination of care(as documented) and pawg-fd-vzoe counseling of patient and/or family. Dictated By: Anam Abarca MD DD/ 1316 Signed By: <Electronically signed by Anam Abarca MD> 04/07/[address] [facility] Work Phone: [phone]) [phone] Progress note Author Anam Abarca [facility] February 11, 2020 2:44pm Note Date/Time February 11, 2020 1:59p m [facility] [place] [address] Hem/Onc Follow Up Note - OP Signed Patient: Tu Conde MR#: [id number] : 1950 Acct:[id number] Age/Sex: 69 / F Type: REG RCR Copies to: Shalom Jones,DO Ricky Perdomo MD~ Subjective Date/Time of Service: Date of [...] MUSCULOSKELETAL: No back pain, or joint pain. [facility] - Medical History Medical History: Medical History [...] for coordination of care (as documented) and guax-bw-lhkg counseling of patient and/or family. Dictated By: Anam Abarca MD DD/ 1357 Signed By: <Electronically signed by Anam Abarca MD> 02/11/[address] [facility] Work Phone: [phone] 728-882405-29-2020 Consult note Author Anam Abarca [facility] January 01, 2020 12:16pm Note Date/Time January 01, 2020 12:04 pm [facility] [place] [address] Hem/Onc Consult Note - OP Signed Patient: Tu Conde MR#: [id number] : 1950 Acct:[id number] Age/Sex: 69 / F Type: REG RCR Copies to: DO Ricky Jordan MD~ HPI Date/Time of Service: Date of Service: 01/01/2020 Time of Service: 12:04 Referring Provider/PCP: Referring Provider: Ricky Perdomo MD PCP: Shalom Jones DO - History of Present Illness Reason for Consultation: Iron deficiency anemia Chief Complaint: New patient appt HPI: Dear doctors, I seen the patient in consultation, and I would like to thank you for the referral. As you know, Mrs. oCnde is 69-year-old pleasant lady, who developed iron deficiency anemia in 2018. She was hospitalized at [facility] last June, EGD revealed 2 small duodenal ulcers, colonoscopy was normal. She received PRBC transfusions, as well as IV iron with Ferric gluconate. During the same hospital stay she was found to have a subsegmental PE, placed onanticoagulation for 3 months. Her CBC on 12/10/2019 revealed hemoglobin 7.2, she received 2 units of PRBC transfusion at [facility]. She is currently taking oral iron [...] is currently receiving B12 supplement IM monthly. [facility] - Medical History Medical History: Medical History [...] 7 Days 01/01/20 11:27: PHA Creatinine Clear [id number], Sodium 137, Potassium 4.4, Chloride 107, Carbon [...] she is open to it. I did family counselor her the risks of anaphylactic reaction, [...] minutes, including greater than 50%of time for auhf-fp-tbat counseling and care coordination. - Time with Patient Coordination of Care & Counseling Time: Greater than 50% of time spent with patient was for coordination of care (as documented) and aksj-na-awxi counseling of patient and/or family. Dictated By: Anam Abarca MD DD/ 1204 Signed By: <Electronically signed by Anam Abarca MD> 01/01/[address] [facility] Work Phone: Evaluation note* Diagnosis Onset Date Resolution Status Skin lesion acute Angiodysplasia of small intestine chronic B12 deficiency chronic Hiatal hernia chronic Iron deficiency anemia chron ic Obesity, morbid, BMI 40.0-49.9 [facility] Work Phone: Evaluation noteNo [employer] Other Evaluation note* Diagnosis Onset Date Resolution Status Skin lesion acute Angiodysplasia of small intestine chronic B12 deficiency chronic Chronic Freedom ulcer chroni c Hiatal hernia chronic Iron deficiency anemia chron ic Obesity, morbid, BMI 40.0-49.9 [facility] Work Phone: evaluation note* Diagnosis Onset Date Resolution Status Angiodysplasia of small intestine chronic B12 deficiency chronic Chronic [place] ulcer chroni c Hiatal hernia chronic Obesity, morbid, BMI 40.0-49.9 chronic YARI (generalized anxiety disorder) acute Gastritis due to Helicobacter species acute H. pylori infection acute Iron deficiency anemia due to chronic blood loss [facility] Work Phone: Evaluation note* Diagnosis Onset Date Resolution Status Angiodysplasia of small intestine chronic B12 deficiency chronic Chronic Freedom ulcer chroni c Hiatal hernia chronic Obesity, morbid, BMI 40.0-49.9 chronic Abnormal findings on esophagogastroduodenoscopy (EGD) acute YARI (generalized anxiety disorder) acute Gastritis due to Helicobacter species acute H. pylori infection acute Iron deficiency anemia due to chronic blood loss acute [facility] Work Phone: Evaluation note* Diagnosis Onset Date Resolution Status Abnormal findings on esophagogastroduodenoscopy (EGD) acute YARI (generalized anxiety disorder) acute Gastritis due to Helicobacter species acute H. pylori infection acute Iron deficiency anemia due to chronic blood loss acute Angiodysplasia of small intestine chronic B12 deficiency chronic Chronic [place] ulcer chroni c Hiatal hernia chronic Obesity, morbid, BMI 40.0-49.9 [facility] Work Phone: Evaluation note* Diagnosis Onset [...] Hiatal hernia chronic Obesity, morbid, BMI 40.0-49.9 [facility] Work Phone: Evaluation note* Diagnosis Onset [...] Freedom ulcer chroni c Hiatal hernia acute [facility] Work Phone: Evaluation note* Diagnosis Onset Date Resolution Status Iron deficiency anemia due to chronic blood loss acute Angiodysplasia of small intestine chronic B12 deficiency chronic Chronic [place] ulcer chroni c Hiatal hernia chronic Obesity, morbid, BMI 40.0-49.9 chronic Hiatal hernia acute Iron deficiency anemia due to chronic blood loss acute Chronic Feredom ulcer chroni c [facility] Work Phone: Evaluation note* Diagnosis Onset [...] anemia due to chronic blood loss acute [facility] Work Phone: Evaluation note* Diagnosis Onset [...] noneactive Screening mammogram for breast cancer noneactive [facility] Work Phone: Evaluation note* Diagnosis Onset Date Resolution Status YARI (generalized anxiety disorder) acute GERD (gastroesophageal reflux disease) acute Iron deficiency anemia due to chronic blood loss acute Pernicious anemia acute Primary hypertension acute Obesity, morbid, BMI 40.0-49.9 chronic Medicare annual wellness visit, subsequent noneactive Screening mammogram for breast cancer noneactive [facility] Work Phone: History general Narrative - Reported* Type Description Date Medical History high cholesterol Medical History anxiety Medical History sleep disorder/insomnia Surgical History bunionectomy left foot Surgical History total hysterectomy Surgical History cholecystectomy Surgical History T&A Surgical History Oral Surgery Hospitalization History GI bleeding 06/2019 [facility] Other Hisqn[facility] general Narrative - Reported* Type Description Date [...] History EGD Hospitalization History GI bleeding 06/2019 [facility] Other History general Narrative - ReportedNortSchoolMint Other Hisxhls general Narrative - Reported* Type Description Date [...] enteroscopy 05/2023 Hospitalization History GI bleeding 06/2019 [facility] Other Hospital Discharge instructions Additional Instructions DISCHARGE [...] if you have any problems. -Office number [phone][facility] Work Phone: InstructionsNot on filedocumented in this encounter [facility]SN SystemInstructionsNot on filedocumented in this encounter [facility] SystemInstructionsNot on filedocumented in this encounter [facility] SystemProgress note Author Melissa D[facility] August 09, 2022 2:19pm Note Date/Time August 09, 2022 2: 03pm [facility] [place] [address] Hem/Onc Follow Up Note - OP Signed Patient: Tu Conde MR#: [id number] : 1950 Acct:[id number] Age/Sex: 71 / F Type: REG RCR Copies to: Shalom Jones,DO Ricky Perdomo MD~ Subjective Date/Time of Service: Date of Service: 08/09/2022 Time of Service: 13:50 Chief Complaint: Patient is here for a 2 month follow up with outside labs for review. No concerns voiced at this time. HPI: 08/09/2022: Tu is here for interval 2 month follow [...] 1 on 11/30/2021. Most recent laboratories from [facility] dated 08/06/2022 reveal hemoglobin - 10.7; [...] withactivities and her most recent labs at [facility] 06/04/2022 showed hemoglobin 11.7 with serum [...] fatigue. Will continue close follow up. 01/05/2022: Tu presents for follow-up of her iron deficiency [...] that time. On review, her labs from [facility] reveal hgb 9.0 and iron saturation 5%. We will plan for repeat Feraheme x 2 doses and will follow-up in 6 weeks again for repeat labs 11/24/2021: She is here for follow-up today and transfer of followup (previouslyfollowed by Dr. Anam Abarca). She reports improved energy since most recent RBC transfusion and iron infusions at [place] but persistent fatigue. She still has episodes [...] No iron panel was reported. Labs from [place] 11/22/2021 with improved hemoglobin to 9.4 but still low iron saturation 3.9% and ferritin 20. 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 Followup with [facility] in 6 weeks to review iron studies [...] improved after receiving Feraheme in September at [facility] she has her labs done at [facility] as well, none done this month [...] Depressed Mood [-], Anxiety [-], Stressed [-] [facility] - Medical History Medical History: Medical History [...] of the small bowel 04/28/2021 follow-up in [place]: o FeraHeme 510 mg IV o Repeat Iron Studies, CBC, Ferritin in 1 month o Follow-up in [address] Rivera at [facility] September 2021 follow-up labs at [facility] with again low iron saturation at 3.5%, ferritin 15 and hemoglobin 6.6. She received 2 doses of Feraheme as well as 2 units PRBCs at [facility] 10/24/2021: She feels much better after [...] have her follow-up in 6 weeks with [facility] and will plan for repeat iron studies [...] any issues prior to scheduled appointment. 06/06/2022: Tu now has recurrent fatigue and dyspnea with [...] follow-up with myself and nurse practitioner. 08/09/2022: Tu is here for interval 2 month follow [...] 1 on 11/30/2021. Most recent laboratories from [facility] dated 08/06/2022 reveal hemoglobin - 10.7; [...] for coordination of care (as documented) and kmkn-fl-ewnt counseling of patient and/or family. Dictated By: Melissa Louis APRN DD/ 1350 Signed By: <Electronically signed by SONIA Louis> 08/09/[address] [facility] Work Phone: Progress note Author Shiela Chan [facility] January 08, 2023 2:18pm Note Date/Time January 08, 2023 2:14p m [facility] [place] [address] Hem/Onc Follow Up Note - OP Signed Patient: Tu Conde MR#: [id number] : 1950 Acct:[id number] Age/Sex: 72 / F Type: REG RCR [...] of the small bowel 04/28/2021 follow-up in [place]: o FeraHeme 510 mg IV o Repeat Iron Studies, CBC, Ferritin in 1 month o Follow-up in [address] Rivera at [facility] September 2021 follow-up labs at [facility] with again low iron saturation at 3.5%, ferritin 15 and hemoglobin 6.6. She received 2 doses of Feraheme as well as 2 units PRBCs at [facility] 10/24/2021: She feels much better after [...] have her follow-up in 6 weeks with [facility] and will plan for repeat iron studies [...] any issues prior to scheduled appointment. 06/06/2022: Tu now has recurrent fatigue and dyspnea with [...] follow-up with myself and nurse practitioner. 08/09/2022: Tu is here for interval 2 month follow [...] 1 on 11/30/2021. Most recent laboratories from [facility] dated 08/06/2022 reveal hemoglobin - 10.7; [...] admitted for 2-3 days with anemia at [facility] and received transfusional support. Current labs [...] anemia and go ovr labs HPI: 11/07/2022: Tu presents for follow-up for her iron deficiency anemia. She continues with increased fatigue and dyspnea on exertion. She denies black, tarry stool or other s/s of bleeding. No other new symptoms. She notes she was admitted at [facility] end of September for anemia and received a couple of units of blood while there. No active bleeding found at that time and iron studies WNL during admission. Iron studies currently low, will plan repletion with IV iron and will follow-up with labs in 2 months, sooner if needed. 08/09/2022: Tu is here for interval 2 month follow [...] 1 on 11/30/2021. Most recent laboratories from [facility] dated 08/06/2022 reveal hemoglobin - 10.7; [...] withactivities and her most recent labs at [facility] 06/04/2022 showed hemoglobin 11.7 with serum [...] fatigue. Will continue close follow up. 01/05/2022: Tu presents for follow-up of her iron deficiency [...] that time. On review, her labs from [facility] reveal hgb 9.0 and iron saturation 5%. We will plan for repeat Feraheme x 2 doses and will follow-up in 6 weeks again for repeat labs 11/24/2021: She is here for follow-up today and transfer of followup (previouslyfollowed by Dr. Anam Abarca). She reports improved energy since most recent RBC transfusion and iron infusions at [place] but persistent fatigue. She still has episodes [...] No iron panel was reported. Labs from [place] 11/22/2021 with improved hemoglobin to 9.4 but still low iron saturation 3.9% and ferritin 20. 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 Followup with [facility] in 6 weeks to review iron studies [...] improved after receiving Feraheme in September at [facility] she has her labs done at [facility] as well, none done this month [...] without complaints beyond the continued melena 11/07/2022: Tu presents for follow-up for her iron deficiency anemia. She continues with increased fatigue and dyspnea on exertion. She denies black, tarry stool or other s/s of bleeding. No other new symptoms. She notes she was admitted at [facility] end of September for anemia and [...] for coordination of care (as documented) and jzdw-ua-utuk counseling of patient and/or family. [facility] - Medical History Medical History: Medical History [...] <Electronically signed by SONIA Chan> 01/08/[address] [facility] Work Phone: Progress note Author Shiela Chan [facility] March 12, 2023 3:30pm Note Date/Time March 12, 2023 1:3 3pm [facility] [place] [address] Hem/Onc Follow Up Note - OP Signed Patient: Tu Conde MR#: [id number] : 1950 Acct:[id number] Age/Sex: 72 / F Type: REG RCR [...] in [address] Rivera at [facility] September 2021 follow-up labs at [facility] with again low iron saturation at 3.5%, ferritin 15 and hemoglobin 6.6. She received 2 doses of Feraheme as well as 2 unitsPRBCs at [facility] 10/24/2021: She feels much better after [...] have her follow-up in 6 weeks with [facility] and will plan for repeat iron studies [...] any issues prior to scheduled appointment. 06/06/2022: Tu now has recurrent fatigue and dyspnea with [...] follow-up with myself and nurse practitioner. 08/09/2022: Tu is here for interval 2 month follow [...] 1 on 11/30/2021. Most recent laboratories from [facility] dated 08/06/2022 reveal hemoglobin - 10.7; [...] admitted for 2-3 days with anemia at [facility] and received transfusional support. Current labs [...] will also refer her back to Dr. Perdomo as she is agreeable to this now. [...] She will be referred back to Dr. Perdomo for re-evaluation as she continues to require [...] follow-up in 1mo refer back to Dr. Perdomo - History of Present Illness Chief Complaint: Patient is here today for a 2 month follow up visit for iron deficiency anemia and go over labs HPI: 11/07/2022: Tu presents for follow-up for her iron deficiency anemia. She continues with increased fatigue and dyspnea on exertion. She denies black, tarry stool or other s/s of bleeding. No other new symptoms. She notes she was admitted at [facility] end of September for anemia and received a couple of units of blood while there. No active bleeding found at that time and iron studies WNL during admission. Iron studies currently low, will plan repletion with IV iron and will follow-up with labs in 2 months, sooner if needed. 08/09/2022: Tu is here for interval 2 month follow [...] 1 on 11/30/2021. Most recent laboratories from [facility] dated 08/06/2022 reveal hemoglobin - 10.7; [...] withactivities and her most recent labs at [facility] 06/04/2022 showed hemoglobin 11.7 with serum [...] fatigue. Will continue close follow up. 01/05/2022: Tu presents for follow-up of her iron deficiency [...] that time. On review, her labs from [facility] reveal hgb 9.0 and iron saturation 5%. We will plan for repeat Feraheme x 2 doses and will follow-up in 6 weeks again for repeat labs 11/24/2021: She is here for follow-up today and transfer of followup (previouslyfollowed by Dr. Anam Abarca). She reports improved energy since most recent RBC transfusion and iron infusions at [facility] but persistent fatigue. She still has episodes [...] No iron panel was reported. Labs from [facility] 11/22/2021 with improved hemoglobin to 9.4 but still low iron saturation 3.9% and ferritin 20. 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 Followup with [facility] in 6 weeks to review iron studies [...] improved after receiving Feraheme in September at [facility] she has her labs done at [facility] as well, none done this month [...] without complaints beyond the continued melena 11/07/2022: Tu presents for follow-up for her iron deficiency anemia. She continues with increased fatigue and dyspnea on exertion. She denies black, tarry stool or other s/s of bleeding. No other new symptoms. She notes she was admitted at [facility] end of September for anemia and [...] for coordination of care (as documented) and [id number] counseling of patient and/or family. [facility] - Medical History Medical History: Medical History [...] <Electronically signed by SONIA Chan> 03/12/[address] [facility] Work Phone: Progress note Author Shiela Chan [facility] August 13, 2023 1:27pm Note Date/Time August 13, 2023 1: 13pm [facility] at [address] [address] Hem/Onc Follow Up Note - OP Signed Patient: ElisantoineTu MR#: [id number] : 1950 Acct:[id number] Age/Sex: 72 / F Type: REG RCR Copies to: Shalom Jones,DO Ricky Perdomo MD~ Date of Service: 08/13/2023 Time of [...] have her follow-up in 6 weeks with [facility] and will plan for repeat iron studies [...] admitted for 2-3 days with anemia at [facility] and received transfusional support. Current labs [...] will also refer her back to Dr. Perdomo as she is agreeable to this now. [...] on her pantoprazole and clonidine from Dr. Perdomo forher Freedom ulcer and AVMs. She also continues on monthly B12 injections thru Dr. Jones. We will follow-up in 3 months with [...] 13, iron sat 32.9%, ferritin 348 06/13/2023: Tu is here for 6 week followup after [...] review gastroenterology evaluation and outside labs. 04/26/2023: Tu is here for followup after most recent Injectafer infusions. She has received Feraheme x 2 in Aug 2022, Injectafer in November/January/March 2023. Followup labs at [facility] show hemoglobin 8.4 with iron saturation 6.3% [...] iron sat 12% and ferritin 109 11/07/2022: Tu presents for follow-up for her iron deficiency anemia. She continues with increased fatigue and dyspnea on exertion. She denies black, tarry stool or other s/s of bleeding. No other new symptoms. She notes she was admitted at [facility] end of September for anemia and received a couple of units of blood while there. No active bleeding found at that time and iron studies WNL during admission. Iron studies currently low, will plan repletion with IV iron and will follow-up with labs in 2 months, sooner if needed. 08/09/2022: Tu is here for interval 2 month follow [...] 1 on 11/30/2021. Most recent laboratories from [facility] dated 08/06/2022 reveal hemoglobin - 10.7; [...] withactivities and her most recent labs at [facility] 06/04/2022 showed hemoglobin 11.7 with serum [...] fatigue. Will continue close follow up. 01/05/2022: Tu presents for follow-up of her iron deficiency [...] that time. On review, her labs from [facility] reveal hgb 9.0 and iron saturation 5%. We will plan for repeat Feraheme x 2 doses and will follow-up in 6 weeks again for repeat labs 11/24/2021: She is here for follow-up today and transfer of followup (previouslyfollowed by Dr. Anam Abarca). She reports improved energy since most recent RBC transfusion and iron infusions at [facility] but persistent fatigue. She still has episodes [...] No iron panel was reported. Labs from [facility] 11/22/2021 with improved hemoglobin to 9.4 but still low iron saturation 3.9% and ferritin 20. 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 Followup with [facility] in 6 weeks to review iron studies after Feraheme 510mg x 2 doses and Octreotide LAR 20mg IM monthly. 10/24/2021 (YAZAN Chan) her energy is much improved after receiving Feraheme in September at [facility] she has her labs done at [facility] as well, none done this month [...] for coordination of care (as documented) and [id number] counseling of patient and/or family. [facility] - Medical History Medical History: Medical History [...] <Electronically signed by SONIA Chan> 08/13/[address] [facility] Work Phone: Reason for referral (narrative)No reason for referral [facility] Work Phone: Summary Purpose Family History [...] 26, 2024 10:51am Angiodysplasia of small intestine Auguar y 2024 10:51am B12 deficiency August 26, 2024 1 0:51am Angiodysplasia of small intestine Februa 2024 12:48pm Hiatal hernia September 07, 2024 1 2:48pm B12 deficiency September 07, 2024 1 2:48pm Chronic Freedom ulcer September 07, 2024 12:48pm Iron deficiency anemia September 07 12:48pm Obesity, morbid, BMI 40.0-49.9 September 07, 2024 12:48pm Skin lesion September 07, 2024 1 2:48pm YARI (generalized anxiety disorder) Febru [email or web address] 1:24pm GERD (gastroesophageal reflux disease) F ebruary [...] 26, 2024 10:51am Angiodysplasia of small intestine Auguar y 2024 10:51am B12 deficiency August 26, 2024 1 0:51am Angiodysplasia of small intestine 2024 12:48pm Hiatal hernia September 07, 2024 1 2:48pm B12 deficiency September 07, 2024 1 2:48pm Chronic Freedom ulcer September 07, 2024 12:48pm Iron deficiency anemia September 07 12:48pm Obesity, morbid, BMI 40.0-49.9 September 07, 2024 12:48pm Skin lesion September 07, 2024 1 2:48pm Diarrhea September 09, 2024 1 :24pm YARI (generalized anxiety disorder) u [email or web address] 1:24pm GERD (gastroesophageal reflux disease) F [facility] 2024 1:24pm Iron deficiency anemia due to [...] 1 :24pm YARI (generalized anxiety disorder) u [email or web address] 1:24pm GERD (gastroesophageal reflux disease) F [facility] 2024 1:24pm Iron deficiency anemia due to [...] 4:0 0pm Cough/Cold December 08, 2024 1:33pm Chief Complaint Admit Date B12 shot October 27, 2024 2:1 8pm Follow Up November 19, 2024 2:1 7pm Iron Def, anemia November 19, 2024 2:1 8pm B12 shot November 30, 2024 4:0 0pm Cough/Cold December 08, 2024 1:33pm B12 shot December 30, 2024 3:25p m Reason for Visit Admit Date Chronic Freedom ulcer November 19, 2024 2 [...] Skin lesion November 19, 2024 2:1 8pm Cough December 08, 2024 1:33pm Dyspnea December 08, 2024 1:33pm Acute bronchitis due to other specified organisms December 08, 2024 1:33pm Chief Complaint Admit Date B12 shot October 27, 2024 2:1 8pm Follow Up November 19, 2024 2:1 7pm Iron Def, anemia November 19, 2024 2:1 8pm B12 shot November 30, 2024 4:0 0pm Cough/Cold December 08, 2024 1:33pm B12 shot December 30, 2024 3:25p m Unknown December 31, 2024 10:35 pm Chief Complaint Admit Date B12 shot October 27, 2024 2:1 8pm Follow Up November 19, 2024 2:1 7pm Iron Def, anemia November 19, 2024 2:1 8pm B12 shot November 30, 2024 4:0 0pm Cough/Cold December 08, 2024 1:33pm B12 shot December 30, 2024 3:25p m Unknown December 31, 2024 10:35 pm Amb Documentation January 05, 2025 8:57a m TBH; UTI January 13, 2025 2:17 pm Reason for Visit Admit Date Chronic Freedom ulcer November 19, 2024 2 [...] Skin lesion November 19, 2024 2:1 8pm Cough December 08, 2024 1:33pm Dyspnea December 08, 2024 1:33pm Acute bronchitis due to other specified organisms December 08, 2024 1:33pm YARI (generalized anxiety disorder) January 13, 2025 2:17pm Pernicious anemia January 13, 2025 2:17 pm Primary hypertension January 13, 2025 2:1 7pm Tachycardia January 13, 2025 2:17 pm UTI (urinary tract infection) January 13, 2025 2:17pm Chief Complaint Admit Date Follow Up November 19, 2024 2:1 7pm Iron Def, anemia November 19, 2024 2:1 8pm B12 shot November 30, 2024 4:0 0pm Cough/Cold December 08, 2024 1:33pm B12 shot December 30, 2024 3:25p m Unknown December 31, 2024 10:35 pm Amb Documentation January 05, 2025 8:57a m TBH; UTI January 13, 2025 2:17 pm B12 shot February 08, 2025 1:09p m Reason for Visit Admit Date Chronic Freedom ulcer November 19, 2024 2 [...] Skin lesion November 19, 2024 2:1 8pm Cough December 08, 2024 1:33pm Dyspnea December 08, 2024 1:33pm Acute bronchitis due to other specified organisms December 08, 2024 1:33pm YARI (generalized anxiety disorder) January 13, 2025 2:17pm Primary hypertension January 13, 2025 2:1 7pm Tachycardia January 13, 2025 2:17 pm UTI (urinary tract infection) January 13, 2025 2:17pm Chief Complaint Admit Date Follow Up November 19, 2024 2:1 7pm B12 shot November 30, 2024 4:0 0pm Cough/Cold December 08, 2024 1:33pm B12 shot December 30, 2024 3:25p m Unknown December 31, 2024 10:35 pm Amb Documentation January 05, 2025 8:57a m TBH; UTI January 13, 2025 2:17 pm B12 shot February 08, 2025 1:09p m Follow Up 3 Months February 11, 2025 12:5 3pm Iron Def, anemia February 11, 2025 12:5 5pm Reason for Visit Admit Date Chronic Freedom ulcer November 19, 2024 2 :17pm Hiatal hernia November 19, 2024 2:1 7pm Iron deficiency anemia due to chronic bl ood loss November 19, 2024 2:17pm Angiodysplasia of small intestine November 19, 2024 2:17pm Cough December 08, 2024 1:33pm Dyspnea December 08, 2024 1:33pm Acute bronchitis due to other specified organisms December 08, 2024 1:33pm YARI (generalized anxiety disorder) January 13, 2025 2:17pm Primary hypertension January 13, 2025 2:1 7pm Tachycardia January 13, 2025 2:17 pm UTI (urinary tract infection) January 13, 2025 2:17pm Chronic Freedom ulcer February 11, 2025 12 :53pm Hiatal hernia February 11, 2025 12:5 3pm Iron deficiency anemia due to chronic bl ood loss February 11, 2025 12:53pm Angiodysplasia of small intestine February 022024 12:53pm Angiodysplasia of small intestine February 022024 12:55pm Hiatal hernia February 11, 2025 12:5 5pm B12 deficiency February 11, 2025 12:5 5pm Chronic Freedom ulcer February 11, 2025 12 :55pm Iron deficiency anemia February 11, 2025 1 2:55pm Obesity, morbid, BMI 40.0-49.9 February 12:55pm Skin lesion February 11, 2025 12:5 5pm Chief Complaint Admit Date B12 shot December 30, 2024 3:25p m Unknown December 31, 2024 10:35 pm Amb Documentation January 05, 2025 8:57a m TBH; UTI January 13, 2025 2:17 pm B12 shot February 08, 2025 1:09p m Follow Up 3 Months February 11, 2025 12:5 3pm R92.8 March 24, 2025 1: 28pm Iron Def, anemia March 24, 2025 2: 36pm Reason for Visit Admit Date YARI (generalized anxiety disorder) January 13, 2025 2:17pm Primary hypertension January 13, 2025 2:1 7pm Tachycardia January 13, 2025 2:17 pm UTI (urinary tract infection) January 13, 2025 2:17pm Chronic Freedom ulcer February 11, 2025 12 :53pm Hiatal hernia February 11, 2025 12:5 3pm Iron deficiency anemia due to chronic bl ood loss February 11, 2025 12:53pm Angiodysplasia of small intestine February 022024 12:53pm Angiodysplasia of small intestine March 24, 2025 2:36pm Hiatal hernia March 24, 2025 2: 36pm B12 deficiency March 24, 2025 2: 36pm Chronic Freedom ulcer March 24, 2025 2:36pm Iron deficiency anemia March 24, 2025 2:36pm Obesity, morbid, BMI 40.0-49.9 March 242024 2:36pm Skin lesion March 24, 2025 2: 36pm Chief Complaint Admit Date B12 shot February 08, 2025 1:09p m Follow Up 3 Months February 11, 2025 12:5 3pm R92.8 March 24, 2025 1: 28pm Iron Def, anemia March 24, 2025 2: 36pm wellness April 29, 2025 11:21am Reason for Visit Admit Date Chronic Freedom ulcer February 11, 2025 12 :53pm Hiatal hernia February 11, 2025 12:5 3pm Iron deficiency anemia due to chronic bl ood loss February 11, 2025 12:53pm Angiodysplasia of small intestine February 022024 12:53pm Angiodysplasia of small intestine March 24, 2025 2:36pm Hiatal hernia March 24, 2025 2: 36pm B12 deficiency March 24, 2025 2: 36pm Chronic Freedom ulcer March 24, 2025 2:36pm Iron deficiency anemia March 24, 2025 2:36pm Obesity, morbid, BMI 40.0-49.9 March 242024 2:36pm Skin lesion March 24, 2025 2: 36pm YARI (generalized anxiety disorder) Septe [email or web address] 11:21am GERD (gastroesophageal reflux disease) S [id number] 11:21am Iron deficiency anemia due to chronic bl ood loss April 29, 2025 11:21am Obesity April 29, 2025 11:21am Pernicious anemia April 29, 2025 11:21am Primary hypertension April 29 11:21am Medicare annual wellness visit, subseque nt April 29, 2025 11:21am Screening mammogram for breast cancer Se ptember 2024 11:21am Reason for Referral Reason Mrs. Conde is bein g referred for breast reduction surgery Diagnosis 1 Macromastia (N62) Referral Organization [facility] Karen boucher Referring Provider First Name Shalom Referring Provider Last Name Karen Referring Provider Specialty Internal Me dicine Referred Organization [facility] Referred Provider Tanner Johnsonory [place]erred Address [address] [place], [place],[address] Referred Provider Specialty Plastic and Reconstructive Surgery [...] CREATED AUTHOR AUTHOR'S ORGANIZ ATION 11/10/2022 [facility] DATE CREATED AUTHOR AUTHOR'S ORGANIZ ATION 03/26/2025 [facility] Care Teams (unrecognized sec tion and content) Team Status: Active Member Role Status Dates Shalom Jones DO Primary Care Provider Active Team Status: Inactive Member Role Status Dates Shalom Jones DO Primary Care Provider Active Start: November 19, 2024 End: November 19, 2024 Francesca Devries APRN Attending Provider Active Start: November 19, 2024 End: November 19, 2024 Team Status: Active Member Role Status Dates Shalom Jones DO Primary Care Provider Active Start: November 19, 2024 Ricky Perdomo MD Referring Provider Active Start: November 19, 2024 Taina Toussaint MD Attending Provider Active Start: November 19, 2024 Team Status: Inactive Member Role Status Dates Shalom Jones DO Primary Care Provider Active Start: November 30, 2024 End: November 30, 2024 Shalom Jones DO Attending Provider Active Sta rt: November 30, 2024 End: November 30, 2024 Team Status: Inactive Member Role Status Dates Shalom Jones DO Primary Care Provider Active Start: December 08, 2024 End: December 08, 2024 Shalom Jones DO Attending Provider Active Sta rt: December 08, 2024 End: December 08, 2024 Team Status: Inactive Member Role Status Dates Shalom Ball , DO Primary Care Provider Active Start: December 30, 2024 End: December 30, 2024 Shalom Jones , DO Attending Provider Active Sta rt: December 30, 2024 End: December 30, 2024 Team Status: Active Member Role Status Yasmany Jones DO Primary Care Provider Active Start: December 31, 2024 NIRMALA Mayo Attending Provider Active S tart: December 31, 2024 Team Status: Inactive Member Role Status Dates Pedro Parra DO Attending Provider Active S tart: December 31, 2024 End: December 31, 2024 Team Status: Active Member Role Status Dates Manuela Torres CMA Attending Provider Active Start: January 05, 2025 Team Status: Inactive Member Role Status Yasmany Jones DO Primary Care Provider Active Start: January 13, 2025 End: January 13, 2025 Shalom Jones , DO Attending Provider Active Sta rt: January 13, 2025 End: January 13, 2025 Team Status: Inactive Member Role Status Yasmany Jones DO Primary Care Provider Active Start: February 08, 2025 End: February 08, 2025 Shalom Jones , DO Attending Provider Active Sta rt: February 08, 2025 End: February 08, 2025 Team Status: Active Member Role Status Yasmany Jones DO Primary Care Provide r, Attending Provider Active Start: October 20, 2024 Team Status: Inactive Member Role Status Yasmany Jones DO Primary Care Provide r, Attending Provider Active Start: October 27, 2024 End: October 27, 2024 Team Status: Inactive Member Role Status Yasmany Jones DO Primary Care Provide r, Attending Provider Active Start: November 30, 2024 End: November 30, 2024 Team Status: Inactive Member Role Status Yasmany Jones DO Primary Care Provide r, Attending Provider Active Start: December 08, 2024 End: December 08, 2024 Team Status: Inactive Member Role Status Yasmany Jones DO Primary Care Provide r, Attending Provider Active Start: December 30, 2024 End: December 30, 2024 Team Status: Inactive Member Role Status Yasmany Jones DO Primary Care Provide r, Attending Provider Active Start: September 09, 2024 End: September 09, 2024 Team Status: Active Member Role Status Yasmany Jones DO Primary Care Provide r, Attending Provider Active Start: August 11, 2024 Team Status: Inactive Member Role Status Yasmany Jones DO Primary Care Provider Active Start: August 26, 2024 End: August 26, 2024 Taina Toussaint MD Attending Provider Active Start: August 26, 2024 End: August 26, 2024 Team Status: Active Member Role Status Dates Shalom Jones DO Primary Care Provider Active Start: September 07, 2024 Ricky Perdomo MD Referring Provider Active Start: September 07, 2024 Taina Toussaint MD Attending Provider Active Start: September 07, 2024 Team Status: Inactive Member Role Status Dates Shalom Jones DO Primary Care Provider Active Start: November 07, 2023 End: November 07, 2023 Kiara Ortiz MD Attending Provider Active St art: November 07, 2023 End: November 07, 2023 Team Status: Inactive Member Role Status Dates Shalom Jones DO Primary Care Provider Active Start: November 12, 2023 End: November 12, 2023 Shiela Chan APRN Attending Provider Acti ve Start: November 12, 2023 End: November 12, 2023 Team Status: Active Member Role Status Dates Shalom Jones DO Primary Care Provider Active Start: November 26, 2023 Ricky Perdomo MD Referring Provider Active Start: November 26, 2023 Taina Toussaint MD Active Start: November 26, 2023 Shiela Chan APRN Attending Provider Acti ve Start: November 26, 2023 Team Status: Inactive Member Role Status Dates Shalom Jones DO Primary Care Provide r, Attending Provider Active Start: December 26, 2023 End: December 26, 2023 Team Status: Inactive Member Role Status Dates Shalom Jones DO Primary Care Provider Active Start: January 16, 2024 End: January 16, 2024 Manuela Mann DO Attending Provider Active St art: January 16, 2024 End: January 16, 2024 Team Status: Inactive Member Role Status Dates Shalom Jones DO Primary Care Provide r, Attending Provider Active Start: February 04, 2024 End: February 04, 2024 Team Status: Active Member Role Status Dates Shalom Jones DO Primary Care Provide r, Attending Provider Active Start: October 21, 2023 Team Status: Inactive Member Role Status Dates Shalom Jones DO Primary Care Provider Active Start: October 21, 2023 End: October 21, 2023 Parish Mckeon DO Attending Provider Active Start: October 21, 2023 End: October 21, 2023 Team Status: Active Member Role Status Dates Shalom Jones DO Primary Care Provide r, Attending Provider Active Start: October 22, 2023 Team Status: Active Member Role Status Dates Shalom Jones DO Primary Care Provider Active Start: October 24, 2023 ANI Lopez Attending Provider Active St art: October 24, 2023 Team Status: Active Member Role Status Dates Shalom Jones DO Primary Care Provider Active Start: October 29, 2023 ANI Hawkins Attending Provider Active Start : October 29, 2023 Team Status: Inactive Member Role Status Dates Shalom Jones DO Primary Care Provide r, Attending Provider Active Start: November 05, 2023 End: November 05, 2023 Team Status: Inactive Member Role Status Dates Shalom Jones DO Primary Care Provide r, Attending Provider Active Start: October 02, 2023 End: October 02, 2023 Team Status: Active Member Role Status Dates Shalom Jones DO Primary Care Provider Active Start: November 12, 2023 Ricky Perdomo MD Referring Provider Active Start: November 12, 2023 Taina Toussaint MD Active Start: November 12, 2023 Shiela Chan APRN Attending Provider Acti ve Start: November 12, 2023 Team Status: Active Member Role Status Dates Shalom Jones DO Primary Care Provider Active Start: August 13, 2023 Ricky Perdomo MD Referring Provider Active Start: August 13, 2023 Taina Toussaint MD Attending Provider Active Start: August 13, 2023 Team Status: Inactive Member Role Status Dates Shalom Jones DO Attending Provider Active Sta rt: August 14, 2023 End: August 14, 2023 Team Status: Inactive Member Role Status Dates Ricky Perdomo MD Attending Provider Active Start: August 06, 2023 End: August 06, 2023 Team Status: Active Member Role Status Dates Shalom Jones DO Primary Care Provider Active Ricky Perdomo MD Referring Provider Active Taina Toussaint MD Attending Provider Active Team Status: Inactive Member Role Status Dates Shalom Jones DO Primary Care Provider Active Ricky Perdomo MD Attending Provider Active Team Status: Active Member Role Status Dates Shalom Jones DO Primary Care Provider Active Start: February 13, 2024 Ricky Perdomo MD Referring Provider Active Start: February 13, 2024 Taina Toussaint MD Active Start: February 022023 Shiela Jeffrey SONIA Chan Attending Provider Acti ve Start: February 13, 2024 Team Status: Inactive Member Role Status Dates Shalom Jones DO Primary Care Provider Active Start: February 13, 2024 End: February 13, 2024 Taina Toussaint MD Attending Provider Active Start: February 13, 2024 End: February 13, 2024 Team Status: Inactive Member Role Status Dates Shalom Jones DO Primary Care Provide r, Attending Provider Active Start: March 09, 2024 End: March 09, 2024 Team Status: Inactive Member Role Status Dates Shalom Jones DO Primary Care Provide r, Attending Provider Active Start: April 14, 2024 End: April 14, 2024 Team Status: Active Member Role Status Dates Shalom Jones DO Primary Care Provide r, Attending Provider Active Start: May 15, 2024 Team Status: Inactive Member Role Status Dates Shalom Jones DO Primary Care Provide r, Attending Provider Active Start: May 19, 2024 End: May 19, 2024 Team Status: Inactive Member Role Status Dates Shalom Jones DO Primary Care Provider Active Start: July 09, 2024 End: July 09, 2024 Kiara Ortiz MD Attending Provider Active St art: July 09, 2024 End: July 09, 2024 Team Status: Inactive Member Role Status Dates Shalom Jones DO Primary Care Provider Active Start: August 26, 2024 End: August 26, 2024 Taina Toussaint MD Attending Provider Active Start: August 26, 2024 End: August 26, 2024 Taina Toussaint MD Attending Provider Active Start: August 26, 2024 Enzyme Chemist Relationship Specialty Start Date End Date Shalom Jones DO [address] [id number] PCP - General Internal Medicine 10/23/23 Enzyme Chemist Relationship Specialty Start Date End Date Shalom Jones DO [address] [place] [address] PCP - General Internal Medicine 10/23/23 Enzyme Chemist Relationship Specialty [place] [address] [place], [place] [id number] PCP - General Internal Medicine 10/23/23 Enzyme Chemist Relationship Specialty Start Date End Date Shalom Jones DO [address] [place] [address] PCP - General Internal Medicine 10/23/23 Enzyme Chemist Relationship Specialty Start [place] [address] [place] [id number] PCP - General Internal Medicine 10/23/23 Enzyme Chemist Relationship Specialty Start [place] [address] [place] [id number] PCP - General Internal Medicine 10/23/23 Team Status: Inactive Member Role Status Dates Shalom Jones DO Primary Care Provide r, Attending Provider Active Start: January 13, 2025 End: January 13, 2025 Team Status: Inactive Member Role Status Dates Shalom Jones DO Primary Care Provider Active Start: February 11, 2025 End: February 11, 2025 Francesca Devries APRN Attending Provider Active Start: February 11, 2025 End: February 11, 2025 Team Status: Active Member Role Status Dates Shalom Jones DO Primary Care Provider Active Start: February 11, 2025 Ricky Perdomo MD Referring Provider Active Start: February 11, 2025 Taina Toussaint MD Attending Provider Active Start: February 11, 2025 Team Status: Inactive Member Role Status Dates Shalom Jones DO Primary Care Provider Active Start: March 24, 2025 End: March 24, 2025 Shalom Jones DO Attending Provider Active Sta rt: March 24, 2025 End: March 24, 2025 Team Status: Active Member Role Status Dates Shalom Jones DO Primary Care Provider Active Start: March 24, 2025 Ricky Perdomo MD Referring Provider Active Start: March 24, 2025 Taina Toussaint MD Attending Provider Active Start: March 24, 2025 Team Status: Inactive Member Role Status Dates Shalom Jones DO Primary Care Provider Active Start: April 29, 2025 End: April 29, 2025 Shalom Ball , DO Attending Provider Active Sta rt: April 29, 2025 End: April 29, 2025 Goals (unrecognized section and content) Goals may [...] FOR VISIT (unrecogniz ed section and content) [id number] follow upCHECK UPMedication ChangeB-12 Shot6 WEEK FOLLOW [id number] here at the request of Shiela Chan NP for iron deficiency anemiaNo InformationNo [id number] SHOTPatient here for follow up EGD6 month [...] BE BASED ON THE PRIMARY CLINICAL RECORDS. [employer] [facility]. provides no warranty or guarantee of the accuracy or completeness of information in this document.
[2025-05-17 13:20] LABS: Hematocrit 37.4 % (36.0-48.0); Hemoglobin 11.2 g/dL (12.0-16.0); Immature Granulocytes Abs Auto 0.02 10^3/uL (0.00-0.03); Immature Granulocytes Pct Auto 0.3 % (0.0-0.5); Lymphocytes Absolute Auto 1.1 10^3/uL (1.2-3.8); Mean Corpuscular HGB Conc 29.9 g/dL (29.9-35.2); Mean Corpuscular Hemoglobin 26.6 pg (26.7-34.0); Mean Corpuscular Volume 88.8 fL (81.0-99.0); Platelet Count 289 10^3/uL (150-450); Red Blood Count 4.21 10^6/uL (4.20-5.40); White Blood Count 6.4 10^3/uL (4.0-11.0)
[2025-05-17 14:17] LABS: Ferritin 30.0 ng/mL (8.0-252.0)
[2025-05-17 14:38] LABS: Iron 25.0 ug/dL (50.0-170.0); Percent Iron Saturation 7.5 %; Total Iron Binding Capacity 332.0 ug/dL (250.0-450.0)
== END 2025-05-17 13:00 | disposition home or self-care (01) ==
LOC: LAB 13:03
PROVIDERS: PCP Internal Medicine
DX: D50.0 Iron deficiency anemia secondary to blood loss (chronic) (principal)
CPT/HCPCS: 36415; 82728; 83540; 83550; 85025